=== PATIENT | female | born 1940 | race Caucasian/White ===

== ENCOUNTER 2019-12-08 14:04 | Outpatient (RCR) | payer MEDICARE, SELFPAY | END 2019-12-16 14:50 | disposition home or self-care (01) | LOC: HO.WCC 14:04 | PROVIDERS: PCP Family Medicine; Visit Provider Surgery | DX: Z09 Encounter for follow-up examination after completed treatment for conditions other than malignant neoplasm (principal) | CPT/HCPCS: 99212 ==

== ENCOUNTER 2019-12-31 13:33 | Outpatient (REF) | payer MEDICARE, SELFPAY ==
[2019-12-31 18:29] LABS: MANUAL DIFF FLAG NO
[2019-12-31 18:36] LABS: Basophils Absolute Auto 0.1 X10*3/uL (0.0-0.2); Basophils Percent Auto 1.1 % (0-2); Eosinophils Absolute Auto 0.4 X10*3/uL (0.0-0.4); Eosinophils Percent Auto 5.4 % (0-4); Hematocrit 33.5 % (37-47); Hemoglobin 10.9 g/dl (12.0-16.0); Imm Gran Abs Auto 0.03 X10*3/uL (0.00-0.03); Imm Gran Pct Auto 0.4 % (0.0-0.4); Immature Retic Fraction 5.9 % (3.0-15.9); Lymphocytes Absolute Auto 1.7 X10*3/uL (1.2-4.9); Lymphocytes Percent Auto 23.1 % (20-40); Mean Corpuscular HGB Conc 32.5 g/dl (31.0-35.0); Mean Corpuscular Hemoglobin 31.9 pg (27.0-33.0); Mean Platelet Volume 10.9 fL (9.4-12.3); Monocytes Absolute Auto 0.7 X10*3/uL (0.1-1.2); Monocytes Percent Auto 9.4 % (2-11); Neutrophils Absolute Auto 4.5 X10*3/uL (2.0-8.3); Neutrophils Percent Auto 60.6 % (45-73); Platelet Count 209 X10*3/uL (160-400); Red Blood Count 3.42 X10*6/uL (4.20-5.50); Red Cell Distribution Width 13.8 % (11.0-16.0); Retic HGB Equivalent 34.7 pg (30.0-35.0); Reticulocyte Percent 0.9 % (0.5-1.8); Reticulocytes Absolute 0.032 X10*6/uL (0.026-0.095); White Blood Count 7.5 X10*3/uL (4.8-10.8)
[2019-12-31 19:03] LABS: Alanine Aminotransferase 19 U/L (0-31); Albumin Level 4.2 g/dL (3.5-5.0); Alkaline Phosphatase 83 U/L (39-117); Anion Gap 16 (12-20); Aspartate Amino Transferase 22 U/L (5-31); Bilirubin Total 0.2 mg/dL (0.0-1.0); Blood Urea Nitrogen 47 mg/dL (9-16); Carbon Dioxide 24 mmol/L (22-29); Chloride 108 mmol/L (96-108); Estimated Glomerular Filt Rate 39; Glucose Random 75 mg/dL (60-115); Potassium 4.8 mmol/l (3.3-5.1); Sodium 143 mmol/L (135-145); Total Protein 6.3 g/dL (6.5-8.0)
[2020-01-03 14:12] LABS: Haptoglobin 166 mg/dL (43-212)
== END 2019-12-31 13:34 | disposition home or self-care (01) ==
LOC: HO.HMGCLDS 13:33
PROVIDERS: PCP Family Medicine; Visit Provider Family Medicine
DX: D69.6 Thrombocytopenia, unspecified (principal); C91.10 Chronic lymphocytic leukemia of B-cell type not having achieved remission; D58.9 Hereditary hemolytic anemia, unspecified
CPT/HCPCS: 36415; 80053; 83010; 85025; 85045

== ENCOUNTER 2020-01-13 15:11 | Outpatient (REF) | payer MEDICARE, SELFPAY | END 2020-01-13 15:12 | disposition home or self-care (01) | LOC: HO.LAB 15:11 | PROVIDERS: Visit Provider Internal Medicine | DX: Z20.828 Contact with and (suspected) exposure to other viral communicable diseases (principal) | CPT/HCPCS: C9803; U0003 ==

== ENCOUNTER 2020-03-04 14:19 | Emergency (ER) | payer MEDICARE, SELFPAY ==
[2020-03-04] VITALS (10 sets, daily range): BP systolic 178–247; BP diastolic 78–107; PULSE 73–90; RESP 12–22; TEMP 36.7–36.8; O2SAT 94–98; BMI 19.8
--- NOTE | 2020-03-04 14:37 | XR_ITS ---
EXAMINATION: XR HIP, LEFT CLINICAL INFORMATION: No evidence for dislocation, injury/pain and deformity COMPARISON: None TECHNIQUE: Three views of the left hip. FINDINGS: Patient is status post bilateral hip arthroplasties. There is superior lateral dislocation of the left femoral prosthesis with relation to the left acetabular prosthesis. Degenerative changes of the lower lumbar spine with partially visualized spinal hardware. Right-sided vascular stent noted overlying the pelvis. Bowel gas pattern is unremarkable. Soft tissues are unremarkable. XR/XR hip LT min 2V IMPRESSION: Superior lateral dislocation of the left femoral prosthesis with relation to the left acetabular prosthesis.
--- NOTE | 2020-03-04 15:03 | ECG_ITS ---
Test Reason : HIP DISLOCATION Blood Pressure : / mmHG Vent. Rate : 087 BPM Atrial Rate : 087 BPM P-R Int : 200 ms QRS Dur : 068 ms QT Int : 392 ms P-R-T Axes : 058 062 064 degrees QTc Int : 471 ms Normal sinus rhythm Possible Left atrial enlargement Borderline ECG When compared with ECG of 27-APR-2019 12:40, No significant change was found Referred By: Patricia Gallagher Electronically Signed By:Luis Alberto Hair
--- NOTE | 2020-03-04 15:06 | ED_ITS ---
HPI - Extremity Problem General Chief complaint: Extremity Problem Stated complaint: dislocated hip Time Seen by Provider: 03/04/20 14:37 Source: patient and EMS Mode of arrival: EMS Limitations: no limitations History of Present Illness HPI Narrative: 79-year-old female with a past medical history of left total hip arthroplasty with multiple recurrent dislocations the left side here with left hip pain and deformity. Patient tells me she was sitting on her bed trying to put her pants on and when she was trying to put her left leg into her pants she felt pain. Unable to bear weight on the extremity after. Received 50 mcg of fentanyl by EMS prior to arrival. Did not fall to the ground. No head injury or loss of consciousness. MD Complaint: extremity pain Onset (ago): hour(s) Pain Consistency: constant Location: left and lower extremity Quality: sharp Radiation: none Relieving factors: immobilization Exacerbating factors: range of motion, weight bearing, walking, exertion and palpation Associated symptoms: denies other symptoms Related Data Allergies Allergy/AdvReac Type Severity Reaction Status Date / Time diazepam [DIAZEPAM] Allergy Severe RASH Unverified 11/11/19 15:16 Nabjroq-Sdw-Hyq Reductase Allergy Unknown UNKNOWN Unverified 11/11/19 15:16 Inhibitor [GUAIVBH-NGY-HJP REDUCTASE INHIBITOR] statins Allergy Unknown Uncoded 10/15/19 00:00 Review of Systems Review of Systems: Yes all other systems are reviewed and are negative Constitutional: Constitutional: Reports no additional constitutional complaints, Denies body ache(s), Denies chills, Denies fever(s), Denies headache(s) and Denies weakness Eyes: Eyes: Reports no additional eye complaints and Denies change in vision ENT: Reports system reviewed and no additional complaints, except as documented, Denies dizziness, Denies headache(s), Denies nasal congestion, Denies nasal discharge and Denies neck pain Cardiovascular: Cardiovascular: Reports no additional cardiovascular c omplaints, Denies chest pain, Denies leg edema and Denies dyspnea Respiratory: Respiratory: Reports no additional respiratory complaints, Denies cough and Denies dyspnea Gastrointestinal: Gastrointestinal: Reports no additional gastrointestinal complaints, Denies abdominal pain, Denies diarrhea, Denies nausea and Denies vomiting Genitourinary: Genitourinary: Reports no additional female genitourinary complaints and Denies urinary incontinence Musculoskeletal: Musculoskeletal: Reports no additional musculoskeletal complaints, Denies back pain, Reports arthralgias, Reports joint swelling, Denies neck pain, Denies numbness and Denies tingling Integumentary/Breasts: Skin/Breast: Reports system reviewed and no additional complaints, except as docu and Denies rash Neurologic: Denies Abnormal speech present, Denies dizziness, Denies headache(s), Denies numbness, Denies tingling and Denies weakness PMF Past Medical History Attestation statement: The following information was validated with the patient. Source: nursing notes reviewed Medical History (Updated 03/04/20 @ 16:34 by Patricia Gallagher NP) Anemia CLL (chronic lymphocytic leukemia) Dementia Hip dislocation, left Hyperlipidemia Peripheral vascular disease Pulmonary fibrosis Ulcerative colitis Vertigo Surgical History (Updated 03/04/20 @ 16:27 by Patricia Gallagher NP) H/O carotid endarterectomy History of hip replacement History of liver biopsy S/P popliteal-distal bypass Social History Social History Alcohol intake: never Smoked in Last 30 Days: No Use of substances other than those prescribed or required for medical reasons: No Advance Directives: No Advance Directives Information Provided: Yes Physical Exam Vital Signs: Vital Signs: Last Vital Signs Temp 98.3 F 03/04/20 15:55 Pulse 74 03/04/20 16:29 Resp 17 03/04/20 16:13 BP 206/82 H 03/04/20 16:29 Pulse Ox 97 03/04/20 16:29 Body Mass Index 19.8 Const: General: cooperative, healthy appearing, comfortable and no acute distress Orientation/consciousness: patient oriented x3 Limitations: no limitations HENMT: Head: Yes normal to inspection Ears: hearing grossly normal bilaterally General nose exam: Normal external nose present Face and sinus: Yes normal facial exam Mouth: Normal oral and palatal mucosa present Throat: Yes posterior oropharynx normal Eyes: General: appearance normal, both eyes and all related structures Pu pils: Equal, round and reactive pupils present Neck: Neck: Yes normal visual inspection Chest: Chest palpation & inspection: normal inspection of the chest Resp: Effort & Inspection: normal respiratory effort Auscultation: clear to auscultation bilaterally Cardio: Rate: regular rate Rhythm: regular rhythm Peripheral pulses: Peripheral pulses 2+ throughout GI: Inspection: Yes normal to inspection Palpation (GI): Soft to palpation and nontender Auscultation: normal bowel sounds Back/Spine/Pelvis: Thoracic/Lumbar Spine: thoracic and lumbar spine normal to inspection Skin: General skin exam: no rashes or lesions noted Neuro: General: patient oriented x3, no focal motor deficits and normal sensation to monofilament Cranial nerves: Yes Equal, round and reactive pupils present Cognition (Neuro): normal cognition Speech: No Abnormal speech present Extrem: Other: Left lower extremity is internally rotated and shortened. Palpable pulses distally. Pain over the lateral left hip General: Yes normal to inspection Course Course Course Narrative: 79-year-old female here with pain to the left hip with shortening and rotation. She has a history of multiple dislocations in the left side. Will check x-rays. 1500-x-ray concerning for left hip dislocation-superior lateral. Discussed with orthopedics. Patient is very difficult to reduce and typically requires reduction in the operating room. Recommend attempt reduction here in the emergency department with conscious sedation. Discussed with Uriel as the patient has a history of dementia. He consented to conscious sedation and attempted reduction in the emergency department. 1615-successful reduction of left hip dislocation. Discussed with Susana CHU from Orthopedics. Recommended placing patient in a knee immobilizer, avoiding twisting, avoiding sitting low. 1700-called and updated has been. Plan for ambulation trial in the emergency department with discharge home Procedures Orthopedic Joint Reduction Joint #1: Time Out Performed: Yes Side: left Joint Reduction Location: hip Analgesia: procedural sedation Technique used: other (aguilera technique ) Post-reduction neuro exam: intact Post-reduction vascular: intact Post Reduction X-Ray Obtained: Yes Post Reduction X-Ray Results: reduced Splint Applied: Yes Patient Tolerated Procedure: well Orthopedic Splinting/Casting Injury #1: Side: left Lower Extremity Injury Location: knee Lower Extremity Immobilizer: knee immobilizer Other Orthopedic Equipment: walker Procedural Sedation Indication: fracture/dislocation reduction ASA Class: II Time of Last PO Intake: 09:00 IV Propofol dose (mg): 150 Patient Tolerated Procedure: well Complications: none MDM - Extremity (Nontraumatic) Medical Records Attestation: I reviewed the patient's medical records. Lab Data Attestation: I reviewed the patient's lab results. Result diagrams: 03/04/20 15:19 03/04/20 15:19 Labs: Lab Results 03/04/20 03/04/20 03/04/20 Range/Units 15:19 15:19 15:19 WBC 7.0 (4.8-10.8) X10*3/uL RBC 3.63 L (4.20-5.50) X10*6/uL Hgb 11.3 L (12.0-16.0) g/dl Hct 34.8 L (37-47) % MCV 95.9 (80-98) fL MCH 31.1 (27.0-33.0) pg MCHC 32.5 (31.0-35.0) g/dl RDW 13.9 (11.0-16.0) % Plt Count 200 (160-400) X10*3/uL MPV 9.7 (9.4-12.3) fL Immature Gran % (Auto) 0.3 (0.0-0.4) % Neut % (Auto) 63.1 (45-73) % Lymph % (Auto) 22.9 (20-40) % [place] % (Auto) 8.0 (2-11) % Eos % (Auto) 4.7 H (0-4) % Baso % (Auto) 1.0 (0-2) % Lymph # (Auto) 1.6 (1.2-4.9) X10*3/uL [place] # (Auto) 0.6 (0.1-1.2) X10*3/uL Eos # (Auto) 0.3 (0.0-0.4) X10*3/uL Baso # (Auto) 0.1 (0.0-0.2) X10*3/uL Abs Immat Gran (auto) 0.02 (0.00-0.03) X10*3/uL Absolute Neuts (auto) 4.4 (2.0-8.3) X10*3/uL Absolute Nucleated RBC 0.000 (0.0-0.012) X10*3/uL Nucleated RBC % (auto) 0.0 (0.0-0.2) /100WBC Hold Blue Top SEE NOTE Sodium 141 (135-145) mmol/L Potassium 4.6 (3.3-5.1) mmol/l Chloride 107 (96-108) mmol/L Carbon Dioxide 23 (22-29) mmol/L Anion Gap 16 (12-20) BUN 44 H (9-16) mg/dL Creatinine 1.23 (0.5-1.4) mg/dL Estim Creat Clear Calc 34.5 Estimated GFR 42 Random Glucose 101 (60-115) mg/dL Calcium 9.0 (8.4-10.2) mg/dL Imaging Data hip xray: Attestation: I personally reviewed and interpreted this imaging study as follows: Radiologist's impression: Left hip with superior and lateral displacement. No bony abnormality or fracture ECG Data Attestation EKG: I personally reviewed and interpreted this ECG as follows: ECG interpretation date: 03/04/20 ECG interpretation time: 15:15 Interpretation: Normal sinus rhythm with a rate of 87, normal [place], normal QRS, normal QT Critical Care Time Critical Care Time Critical Care Time: Yes Total Critical Care Time: 30 Attestation: Sedation, joint reduction, discussed with Orthopedics Discharge Plan Discharge Clinical Impression: Dislocation, hip closed Qualifiers: Encounter type: initial encounter Laterality: left Qualified Code(s): S73.005A - Unspecified dislocation of left hip, initial encounter Patient Disposition: Home, Self-Care Instructions: Hip Dislocation (ED) Additional Instructions: Use the knee immobilizer. Avoid sitting and low positions like on the toilet or on the bed. Avoid rotating the hip inwards. Follow-up with orthopedics Referrals: Jewel Mckinley MD [Physician] - 2 days
[2020-03-04 15:24] LABS: Basophils Absolute Auto 0.1 X10*3/uL (0.0-0.2); Eosinophils Absolute Auto 0.3 X10*3/uL (0.0-0.4); Eosinophils Percent Auto 4.7 % (0-4); Hematocrit 34.8 % (37-47); Hemoglobin 11.3 g/dl (12.0-16.0); Imm Gran Abs Auto 0.02 X10*3/uL (0.00-0.03); Imm Gran Pct Auto 0.3 % (0.0-0.4); Lymphocytes Absolute Auto 1.6 X10*3/uL (1.2-4.9); Lymphocytes Percent Auto 22.9 % (20-40); MANUAL DIFF FLAG NO; Mean Corpuscular HGB Conc 32.5 g/dl (31.0-35.0); Mean Corpuscular Hemoglobin 31.1 pg (27.0-33.0); Mean Corpuscular Volume 95.9 fL (80-98); Mean Platelet Volume 9.7 fL (9.4-12.3); Monocytes Absolute Auto 0.6 X10*3/uL (0.1-1.2); Neutrophils Absolute Auto 4.4 X10*3/uL (2.0-8.3); Neutrophils Percent Auto 63.1 % (45-73); Platelet Count 200 X10*3/uL (160-400); Red Blood Count 3.63 X10*6/uL (4.20-5.50); Red Cell Distribution Width 13.9 % (11.0-16.0)
[2020-03-04 15:46] LABS: Anion Gap 16 (12-20); Blood Urea Nitrogen 44 mg/dL (9-16); Carbon Dioxide 23 mmol/L (22-29); Chloride 107 mmol/L (96-108); Creatinine Clr Calc Pharmacy 34.5; Estimated Glomerular Filt Rate 42; Glucose Random 101 mg/dL (60-115); Potassium 4.6 mmol/l (3.3-5.1); Sodium 141 mmol/L (135-145)
--- NOTE | 2020-03-04 15:51 | XR_ITS ---
EXAMINATION: XR HIP, LEFT CLINICAL INFORMATION: Post reduction COMPARISON: Tip radiograph from 03/04/2020 TECHNIQUE: 1 view of the left hip. FINDINGS: There has been interval reduction of previously noted left hip arthroplasty dislocation. The left femoral prosthesis is now in anatomic alignment with the left acetabular prosthesis. Orthopedic hardware is grossly intact. No acute visible fracture or dislocation. Joint spaces and alignment are maintained. Partially visualized lower lumbar spine hardware. Soft tissues are unremarkable. XR/XR hip LT 1V IMPRESSION: Interval reduction of previously noted left hip arthroplasty dislocation. The left femoral prosthesis is now in anatomic alignment with the left acetabular prosthesis. Orthopedic hardware is grossly intact.
--- NOTE | 2020-03-04 16:12 | XR_ITS ---
EXAMINATION: XR KNEE, LEFT CLINICAL INFORMATION: Swollen, etiology COMPARISON: None TECHNIQUE: Two views of the left knee. FINDINGS: There is no acute visible fracture or dislocation. Mild multicompartment degenerative changes are noted. There is spurring of the tibial spines. There is narrowing of the lateral femorotibial compartment. There is periventricular osteophyte formation along the tibial plateau and lateral distal femoral condyle. Smoker reticular osteophytes are noted at the superior and inferior margins of the patella. Joint spaces and alignment are otherwise maintained. No large joint effusion. Soft tissues are unremarkable. XR/XR knee LT 2V IMPRESSION: 1. No acute visible fracture or dislocation. 2. Mild multicompartment degenerative changes.
--- NOTE | 2020-03-04 16:19 | PC.NURSE ---
50ML of Propofol wasted with Hilary TORRES.
[2020-03-04] MEDS: propofoL 200 MG/20 ML VIAL 150 MG IVPUSH (16:23)
--- NOTE | 2020-03-04 17:16 | PC.NURSE ---
pt ambulated with walker no signs of pain or re dislocation
== END 2020-03-04 18:22 | disposition home or self-care (01) ==
PROVIDERS: Nurse Practitioner Family; Emergency Provider Internal Medicine
DX: M24.452 Recurrent dislocation, left hip (principal); F03.90 Unspecified dementia, unspecified severity, without behavioral disturbance, psychotic disturbance, mood disturbance, and anxiety
CPT/HCPCS: 27266; 36415; 73501; 73502; 73560; 80048; 85025; 93005; 96374; 96376; 99152; 99284; 99291

== ENCOUNTER → 2020-03-09 09:36 | Outpatient (BNVA) | payer MEDICARE, SELFPAY | PROVIDERS: PCP Family Medicine; Visit Provider Internal Medicine | DX: Z98.890 Other specified postprocedural states (principal) | CPT/HCPCS: 99212 ==

== ENCOUNTER 2020-03-15 09:34 | Outpatient (REF) | payer MEDICARE, SELFPAY ==
[2020-03-15 10:52] LABS: Alanine Aminotransferase 18 U/L (0-31); Albumin Level 4.1 g/dL (3.5-5.0); Alkaline Phosphatase 94 U/L (39-117); Aspartate Amino Transferase 20 U/L (5-31); Bilirubin Direct 0.2 mg/dL (0.0-0.5); Bilirubin Total 0.4 mg/dL (0.0-1.0); Cholesterol 221 mg/dL; HDL Cholesterol 101 mg/dL; LDL Cholesterol Calculated 110 mg/dl; Total Protein 6.1 g/dL (6.5-8.0); Triglycerides 53 mg/dL
== END 2020-03-15 09:35 | disposition home or self-care (01) ==
LOC: HO.LAB 09:34
PROVIDERS: PCP Family Medicine; Visit Provider Internal Medicine
DX: E78.5 Hyperlipidemia, unspecified (principal); D69.6 Thrombocytopenia, unspecified
CPT/HCPCS: 36415; 80061; 80076

== ENCOUNTER 2020-03-31 12:15 | Outpatient (REF) | payer MEDICARE, SELFPAY ==
[2020-03-31 13:34] LABS: MANUAL DIFF FLAG NO
[2020-03-31 13:53] LABS: Basophils Absolute Auto 0.1 X10*3/uL (0.0-0.2); Basophils Percent Auto 1.2 % (0-2); Eosinophils Absolute Auto 0.3 X10*3/uL (0.0-0.4); Eosinophils Percent Auto 4.5 % (0-4); Hematocrit 34.6 % (37-47); Hemoglobin 11.2 g/dl (12.0-16.0); Imm Gran Abs Auto 0.01 X10*3/uL (0.00-0.03); Imm Gran Pct Auto 0.1 % (0.0-0.4); Lymphocytes Absolute Auto 1.7 X10*3/uL (1.2-4.9); Lymphocytes Percent Auto 22.5 % (20-40); Mean Corpuscular HGB Conc 32.4 g/dl (31.0-35.0); Mean Corpuscular Hemoglobin 31.6 pg (27.0-33.0); Mean Corpuscular Volume 97.7 fL (80-98); Mean Platelet Volume 10.1 fL (9.4-12.3); Monocytes Absolute Auto 0.7 X10*3/uL (0.1-1.2); Monocytes Percent Auto 9.8 % (2-11); Neutrophils Absolute Auto 4.7 X10*3/uL (2.0-8.3); Neutrophils Percent Auto 61.9 % (45-73); Platelet Count 220 X10*3/uL (160-400); Red Blood Count 3.54 X10*6/uL (4.20-5.50); Red Cell Distribution Width 14.4 % (11.0-16.0); Retic HGB Equivalent 34.7 pg (30.0-35.0); Reticulocyte Percent 1.2 % (0.5-1.8); Reticulocytes Absolute 0.041 X10*6/uL (0.026-0.095); White Blood Count 7.6 X10*3/uL (4.8-10.8)
[2020-03-31 14:07] LABS: Alanine Aminotransferase 16 U/L (0-31); Albumin Level 4.3 g/dL (3.5-5.0); Alkaline Phosphatase 99 U/L (39-117); Anion Gap 14 (12-20); Aspartate Amino Transferase 22 U/L (5-31); Bilirubin Total 0.3 mg/dL (0.0-1.0); Blood Urea Nitrogen 33 mg/dL (9-16); Calcium 9.3 mg/dL (8.4-10.2); Carbon Dioxide 25 mmol/L (22-29); Chloride 107 mmol/L (96-108); Estimated Glomerular Filt Rate 48; Glucose Random 67 mg/dL (60-115); Lactate Dehydrogenase 236 U/L (122-220); Potassium 4.7 mmol/L (3.3-5.1); Sodium 141 mmol/L (135-145); Total Protein 6.5 g/dL (6.5-8.0)
[2020-03-31 15:00] LABS: Erythrocyte Sedimentation Rate 16 MM/HR (0-20)
[2020-04-03 13:52] LABS: Haptoglobin 184 mg/dL (43-212)
== END 2020-03-31 12:16 | disposition home or self-care (01) ==
LOC: HO.LAB 12:15
PROVIDERS: PCP Family Medicine; Visit Provider Internal Medicine Medical Oncology
DX: D69.6 Thrombocytopenia, unspecified (principal); D58.9 Hereditary hemolytic anemia, unspecified; E83.52 Hypercalcemia
CPT/HCPCS: 36415; 80053; 83010; 83615; 85025; 85045; 85652

== ENCOUNTER 2020-05-06 10:29 | Emergency (ER) | payer MEDICARE, SELFPAY ==
[2020-05-06] VITALS (16 sets, daily range): BP systolic 156–225; BP diastolic 62–135; PULSE 69–104; RESP 10–21; TEMP 36.6; O2SAT 95–99; BMI 19.8
--- NOTE | ~2020-05-06 | XR_ITS ---
EXAMINATION: XR HIP, LEFT CLINICAL INFORMATION: Dislocation COMPARISON: None TECHNIQUE: Two views of the left hip. FINDINGS: There is a dislocated left hip prosthesis with the head of the femur lying superior to the acetabular prosthesis. No prosthetic loosening seen. There is no soft tissue abnormality. XR/XR hip LT w PEL1V IMPRESSION: Left hip prosthetic dislocation.
--- NOTE | ~2020-05-06 | XR_ITS ---
EXAMINATION: XR HIP, LEFT CLINICAL INFORMATION: Hip reduction COMPARISON: Earlier same date TECHNIQUE: Single view of the left hip. XR/XR hip LT 1V FINDINGS/IMPRESSION: Successful reduction of the previously seen posterosuperior dislocation. The femoral head prosthetic component is not concentrically seated within the acetabular cup. No fractures.
--- NOTE | 2020-05-06 10:51 | ED_ITS ---
HPI - General Adult General Chief complaint: General Medical Stated complaint: LEFT HIP DISLOCATION Time Seen by Provider: 05/06/20 10:40 Source: patient Mode of arrival: EMS Limitations: no limitations History of Present Illness HPI narrative: Patient comes via EMS complaining of a left hip dislocation. Patient states that she lost count how many times it has been dislocated. Patient thinks it is approximately the 10th time. Patient complaining of localized pain. Patient states she was trying to tie her shoes and her hip popped Related Data Home Medications Medication Instructions Recorded Confirmed amlodipine 10 mg tablet 10 mg PO QAM 03/09/20 03/09/20 ascorbic acid (vitamin C) 1,000 mg 1 g PO DAILY tab 03/09/20 03/09/20 tablet aspirin 81 mg tablet,delayed 81 mg PO DAILY 03/09/20 03/09/20 release calcitonin (salmon) 200 INTRANASAL 03/09/20 03/09/20 unit/actuation nasal spray cholecalciferol (vitamin D3) 250 250 mcg PO DAILY 03/09/20 03/09/20 mcg (10,000 unit) capsule clonazepam 0.5 mg tablet 0.5 mg PO BID PRN 03/09/20 03/09/20 donepezil 10 mg tablet 10 mg PO DAILY 03/09/20 03/09/20 hydralazine 25 mg tablet 25 mg PO TID 03/09/20 03/09/20 memantine 10 mg tablet 10 mg PO DAILY 03/09/20 03/09/20 ogfowaty-fqj-vgpka acid 0.4 1 tab PO DAILY 03/09/20 03/09/20 mg-lycopene 300 mcg-lutein 250 mcg tablet Previous Rx's Medication Instructions Recorded evolocumab 140 mg/mL subcutaneous 140 mg SUBCUT Q2W #2 syringe 03/22/20 pen injector amlodipine 10 mg PO DAILY #30 tab 05/06/20 Allergies Allergy/AdvReac Type Severity Reaction Status Date / Time diazepam [DIAZEPAM] Allergy Severe RASH Verified 03/09/20 09:45 Xpljmnf-Mxx-Fgj Reductase Allergy Unknown UNKNOWN Verified 03/09/20 09:45 Inhibitor [RWPHEEH-IUD-QFD REDUCTASE INHIBITOR] Review of Systems Review of Systems: Constitutional : No Weight loss, No Fever, No Chills, No Night Sweats, No Fatigue, No Malaise ENT/Mouth : No Hearing loss, No Ear Pain, No Nasal Congestion, No Sinus Pain, No Hoarseness, No sore throat, No Rhinorrhea, No Swallowing Difficulty Eyes: No Eye Pain, No Swelling, No Redness, No Foreign Body, No Discharge, No Vision Changes Cardiovascular : No Chest Pain, No SOB, No Dyspnea on Exertion, No Orthopnea, No Edema, No Palpitations Respiratory : No Cough, No Sputum, No Wheezing, No Smoke Exposure, No Dyspnea Gastrointestinal : No Nausea, No Vomiting, No Diarrhea, No Constipation, No abdominal Pain, No Hematochezia, No Melena Genitourinary : no irregular bleeding, No Dysuria, No Urinary Frequency, No Hematuria, No Urinary Incontinence, No Urgency, No Flank Pain, No Urinary Flow Changes, No Hesitancy Musculoskeletal : Complaining of right hip pain, No Myalgias, No Joint Swelling Skin : No Skin Lesions, No rash Neuro : No Weakness, No Numbness, No Paresthesias, No Loss of Consciousness, No Dizziness, No Headache Psych : No Anxiety/Panic, No Depression, No SI/HI/AH/VH, No Social Issues, Heme/Lymph: No Bruising, No Bleeding,No Lymphadenopathy Endocrine : No Polyuria, No Polydipsia, No Temperature Intolerance [facility] Past Medical History Medical History Anemia CLL (chronic lymphocytic leukemia) Coronary artery calcification seen on CAT scan Dementia Essential hypertension Hip dislocation, left Hyperlipidemia Other and unspecified hyperlipidemia Peripheral artery disease Peripheral vascular disease Pulmonary fibrosis Ulcerative colitis Vertigo Surgical History H/O carotid endarterectomy History of hip replacement History of liver biopsy S/P popliteal-distal bypass Status post carotid endarterectomy Family History Family History (Updated 03/09/20 @ 08:06 by CAROLA Cho) Father No problems noted. Mother No problems noted. Social History Social History (Updated 03/09/20 @ 13:19 by Marimar Peterson CMA) Alcohol intake: never Smoking Status: Former smoker Advance Directives: No Advance Directives Information Provided: No 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 Physical Exam Vital Signs: Vital Signs: Last Vital Signs Temp 97.9 F 05/06/20 10:34 Pulse 71 05/06/20 12:47 Resp 18 05/06/20 12:47 BP 156/62 H 05/06/20 12:47 Pulse Ox 95 05/06/20 12:47 Body Mass Index 19.8 Constitutional : No Weight loss, No Fever, No Chills, No Night Sweats, No Fatigue, No Malaise ENT/Mouth : No Hearing loss, No Ear Pain, No Nasal Congestion, No Sinus Pain, No Hoarseness, No sore throat, No Rhinorrhea, No Swallowing Difficulty Eyes: No Eye Pain, No Swelling, No Redness, No Foreign Body, No Discharge, No Vision Changes Cardiovascular : No Chest Pain, No SOB, No Dyspnea on Exertion, No Orthopnea, No Edema, No Palpitations Respiratory : No Cough, No Sputum, No Wheezing, No Smoke Exposure, No Dyspnea Gastrointestinal : No Nausea, No Vomiting, No Diarrhea, No Constipation, No abdominal Pain, No Hematochezia, No Melena Genitourinary : no irregular bleeding, No Dysuria, No Urinary Frequency, No Hematuria, No Urinary Incontinence, No Urgency, No Flank Pain, No Urinary Flow Changes, No Hesitancy Musculoskeletal : Left leg is internally rotated, has obvious hip dislocation, No Myalgias, No Joint Swelling Skin : No Skin Lesions, No rash Neuro : No Weakness, No Numbness, No Paresthesias, No Loss of Consciousness, No Dizziness, No Headache Psych : No Anxiety/Panic, No Depression, No SI/HI/AH/VH, No Social Issues, Heme/Lymph: No Bruising, No Bleeding,No Lymphadenopathy Endocrine : No Polyuria, No Polydipsia, No Temperature Intolerance Course Course Course Narrative: Patient consented to conscious sedation. Risks and benefits were explained to the patient. Patient received initially 60 mg of propofol, patient needed a bit more sedation, then she received a 2nd dose of 20 mg of IV propofol, total of 80 mg IV propofol. Patient tolerated sedation well. Initially the left hip was attempted to be reduced with Captain Gopal's maneuver, which was unsuccessful. Allis technique was attempted and was successful. I spoke with VLAD Mauro from orthopedics who spoke to Dr. Mckinley. Patient should have an appointment pending for Orthopedics in [place]. Patient will get a knee immobilizer. Patient's blood pressure was initially 216, patient is symptomatic. Patient was given 1 dose of oral labetalol, 180 now, patient remains asymptomatic. Patient states that she does not remember what medication she used to take but is not taking it anymore. Per patient's records, she has to take 10 mg of amlodipine and 25 mg of hydralazine t.i.d.. I discussed with the patient we will go ahead and start her on amlodipine, she needs close follow-up with her primary care physician for blood pressure control. Medical Decision Making Imaging Data Left hip x-ray: My impression: Left hip prosthetic dislocation Radiologist's impression: There is a dislocated left hip prosthesis with the head of the femur lying superior to the acetabular prosthesis. No prosthetic loosening seen. There is no soft tissue abnormality. XR/XR hip LT w PEL1V IMPRESSION: Left hip prosthetic dislocation. Left hip post reduction: My impression: Prosthetic hip reduction Radiologist's impression: Successful reduction of the previously seen posterosuperior dislocation. The femoral head prosthetic component is not concentrically seated within the acetabular cup. No fractures. Discharge Plan Discharge Clinical Impression: Recurrent dislocation of left hip Hypertension Qualifiers: Hypertension type: unspecified Qualified Code(s): I10 - Essential (primary) hypertension Patient Disposition: Home, Self-Care Instructions: Hip Dislocation (ED) Additional Instructions: Please follow-up with orthopedics in [place], if you need to reschedule, please call Dr. Mckinley office so they can help you to reschedule your visit in [place]. Please follow-up with your primary care physician tomorrow. If you have any worsening or new symptoms, please return to the emergency room or call 911 Prescriptions: New amlodipine 10 mg tablet 10 mg PO DAILY Qty: 30 RF: 0 No Action Repatha SureClick 140 mg/mL pen injector 140 mg subcut Q2W Qty: 2 RF: 5 clonazepam 0.5 mg tablet 0.5 mg PO BID PRNRF: 0 calcitonin (salmon) 200 unit/actuation spray,non-aerosol intranasal RF: 0 amlodipine 10 mg tablet 10 mg PO QAM RF: 0 memantine 10 mg tablet 10 mg PO DAILY RF: 0 hydralazine 25 mg tablet 25 mg PO TID RF: 0 donepezil 10 mg tablet 10 mg PO DAILY RF: 0 aspirin 81 mg tablet,delayed release (DR/EC) 81 mg PO DAILY RF: 0 cholecalciferol (vitamin D3) 250 mcg (10,000 unit) capsule 250 mcg PO DAILY RF: 0 ascorbic acid (vitamin C) 1,000 mg tablet 1 g PO DAILY RF: 0 Centrum Silver 0.4-300-250 mg-mcg-mcg tablet 1 tab PO DAILY RF: 0 Referrals: Jewel Mckinley MD [Physician] - 2 days
[2020-05-06] MEDS: Morphine Sulfate 2 MG/ML CARTRIDGE IVPUSH (11:17)
[2020-05-06] MEDS: propofoL 200 MG/20 ML VIAL 80 MG IVPUSH (11:30)
--- NOTE | 2020-05-06 11:58 | PC.NURSE ---
patient sedated and left hip back into place by dr fernández. patient tolerated well. awake shortly after procedure. patient at baseline mentally. confirmed with , patient hx dementia does experience confusion at times. aware hip in place by md and waiting on x rays. patients BP has been elevated 200's systolically. md aware. patient reports no pain after procedure. awake and conversing with RN.
[2020-05-06] MEDS: Labetalol HCL 100 MG TABLET PO (12:19)
== END 2020-05-06 13:50 | disposition home or self-care (01) ==
PROVIDERS: Emergency Provider Emergency Medicine; PCP Family Medicine
DX: M24.452 Recurrent dislocation, left hip (principal); I10 Essential (primary) hypertension; E78.5 Hyperlipidemia, unspecified; C91.10 Chronic lymphocytic leukemia of B-cell type not having achieved remission; Z96.642 Presence of left artificial hip joint; Z79.82 Long term (current) use of aspirin; Z79.899 Other long term (current) drug therapy
CPT/HCPCS: 27265; 73501; 73502; 96374; 96375; 99152; 99284; 99285; J2270

== ENCOUNTER 2020-05-25 12:52 | Outpatient (REF) | payer MEDICARE, SELFPAY ==
--- NOTE | ~2020-05-25 | MM_ITS ---
EXAMINATION: MM SCREENING DIGITAL BREAST TOMOSYNTHESIS, BILATERAL CLINICAL INFORMATION: Screening. Asymptomatic. The lifetime risk of breast cancer based on the Tyrer-Cuzick Model is 1.7%. COMPARISON: Mammography: 04/10/2019 and studies dating back to 11/03/2013 TECHNIQUE: Digital breast tomosynthesis is performed in both the craniocaudal and mediolateral oblique views along with computer-aided detection (CAD). Synthesized 2D images are generated from the tomosynthesis. FINDINGS: The breasts are heterogeneously dense, which may obscure small masses (ACR BI-RADS breast composition Category c). There is a stable appearance of the left breast with no new abnormal dominant mass or suspicious grouping of microcalcifications identified. Within the anterior lateral aspect on craniocaudal view of the right breast, there is question region of architectural distortion approximately 3 cm from the nipple, for which spot compression view is recommended. I do not definitely see a correlate on mediolateral oblique image with tomosynthesis estimating it to lie within the superior aspect of the breast. No associated microcalcifications identified. MM/MM tomosynthesis screening BI IMPRESSION: Question region of architectural distortion anterior aspect laterally of the right breast. ASSESSMENT: BI-RADS 0: Incomplete - Need Additional Imaging Evaluation. RECOMMENDATION: 1. Additional views of the right breast. 2. Targeted ultrasound if warranted after review of the additional views. 3. Radiology department staff will contact the patient for additional imaging.
== END 2020-05-25 12:53 | disposition home or self-care (01) ==
LOC: HO.MAMMO 12:52
PROVIDERS: Visit Provider Family Medicine
DX: Z12.31 Encounter for screening mammogram for malignant neoplasm of breast (principal)
CPT/HCPCS: 77063; 77067

== ENCOUNTER 2020-05-29 12:49 | Outpatient (REF) | payer MEDICARE, SELFPAY ==
[2020-05-29 14:11] LABS: MANUAL DIFF FLAG NO
[2020-05-29 14:13] LABS: Basophils Absolute Auto 0.1 X10*3/uL (0.0-0.2); Eosinophils Absolute Auto 0.3 X10*3/uL (0.0-0.4); Eosinophils Percent Auto 4.2 % (0-4); Hematocrit 35.7 % (37-47); Hemoglobin 11.7 g/dl (12.0-16.0); Imm Gran Abs Auto 0.02 X10*3/uL (0.00-0.03); Imm Gran Pct Auto 0.3 % (0.0-0.4); Lymphocytes Absolute Auto 1.6 X10*3/uL (1.2-4.9); Lymphocytes Percent Auto 19.6 % (20-40); Mean Corpuscular HGB Conc 32.8 g/dl (31.0-35.0); Mean Corpuscular Hemoglobin 31.7 pg (27.0-33.0); Mean Corpuscular Volume 96.7 fL (80-98); Mean Platelet Volume 10.1 fL (9.4-12.3); Monocytes Absolute Auto 0.6 X10*3/uL (0.1-1.2); Monocytes Percent Auto 8.1 % (2-11); Neutrophils Absolute Auto 5.3 X10*3/uL (2.0-8.3); Neutrophils Percent Auto 66.8 % (45-73); Platelet Count 223 X10*3/uL (160-400); Red Blood Count 3.69 X10*6/uL (4.20-5.50); Red Cell Distribution Width 13.1 % (11.0-16.0); White Blood Count 7.9 X10*3/uL (4.8-10.8)
[2020-05-29 14:33] LABS: Alanine Aminotransferase 21 U/L (0-31); Albumin Level 4.3 g/dL (3.5-5.0); Alkaline Phosphatase 101 U/L (39-117); Anion Gap 15 (12-20); Aspartate Amino Transferase 25 U/L (5-31); Bilirubin Total 0.2 mg/dL (0.0-1.0); Blood Urea Nitrogen 39 mg/dL (9-16); Calcium 9.5 mg/dL (8.4-10.2); Carbon Dioxide 29 mmol/L (22-29); Chloride 103 mmol/L (96-108); Estimated Glomerular Filt Rate 42; Glucose Random 88 mg/dL (60-115); Potassium 4.5 mmol/L (3.3-5.1); Sodium 142 mmol/L (135-145); Total Protein 6.6 g/dL (6.5-8.0)
== END 2020-05-29 12:50 | disposition home or self-care (01) ==
LOC: HO.LAB 12:49
PROVIDERS: PCP Family Medicine; Visit Provider Internal Medicine Medical Oncology
DX: D69.6 Thrombocytopenia, unspecified (principal)
CPT/HCPCS: 36415; 80053; 85025

== ENCOUNTER 2020-06-19 09:05 | Outpatient (REF) | payer MEDICARE, SELFPAY ==
--- NOTE | ~2020-06-19 | MM_ITS ---
EXAMINATION: MM DIAGNOSTIC DIGITAL BREAST TOMOSYNTHESIS, RIGHT CLINICAL INFORMATION: Recall from screening for question of architectural changes anterior central outer right breast limited to the CC tomography. No MLO correlate. COMPARISON: Mammography: 01/24/2021, 04/20/2019, 01/02/2018, 12/05/2016 TECHNIQUE: Digital breast tomosynthesis is performed. 2D images are generated from the tomosynthesis. The following views are obtained: 3-D spot CC, 3-D rolled CC x2. FINDINGS: The breasts are heterogeneously dense, which may obscure small masses (ACR BI-RADS breast composition Category c). The additional views show no persistent architectural abnormality. There is no interval mass or developing density. Results are discussed with the patient at time of visit. MM/MM tomosynthesis added views R IMPRESSION: Additional views are unremarkable. No architectural abnormality. ASSESSMENT: BI-RADS 1: Negative RECOMMENDATION: Routine annual mammography screening. This patient's information was entered into a reminder system with a target due date for their next mammogram.
== END 2020-06-19 09:06 | disposition home or self-care (01) ==
LOC: HO.MAMMO 09:05
PROVIDERS: PCP Family Medicine; Visit Provider Family Medicine
DX: N64.89 Other specified disorders of breast (principal)
CPT/HCPCS: 77061; 77065

== ENCOUNTER 2020-08-08 12:39 | Outpatient (REF) | payer MEDICARE, SELFPAY ==
[2020-08-08 13:49] LABS: MANUAL DIFF FLAG NO
[2020-08-08 14:12] LABS: Basophils Absolute Auto 0.1 X10*3/uL (0.0-0.2); Eosinophils Absolute Auto 0.4 X10*3/uL (0.0-0.4); Eosinophils Percent Auto 5.2 % (0-4); Hematocrit 35.7 % (37-47); Hemoglobin 11.4 g/dl (12.0-16.0); Imm Gran Abs Auto 0.01 X10*3/uL (0.00-0.03); Imm Gran Pct Auto 0.1 % (0.0-0.4); Lymphocytes Absolute Auto 1.7 X10*3/uL (1.2-4.9); Mean Corpuscular HGB Conc 31.9 g/dl (31.0-35.0); Mean Corpuscular Hemoglobin 30.4 pg (27.0-33.0); Mean Corpuscular Volume 95.2 fL (80-98); Mean Platelet Volume 10.3 fL (9.4-12.3); Monocytes Absolute Auto 0.7 X10*3/uL (0.1-1.2); Monocytes Percent Auto 10.8 % (2-11); Neutrophils Absolute Auto 3.8 X10*3/uL (2.0-8.3); Neutrophils Percent Auto 56.9 % (45-73); Platelet Count 262 X10*3/uL (160-400); Red Blood Count 3.75 X10*6/uL (4.20-5.50); Red Cell Distribution Width 13.5 % (11.0-16.0); White Blood Count 6.7 X10*3/uL (4.8-10.8)
[2020-08-08 15:06] LABS: Anion Gap 15 (12-20); Blood Urea Nitrogen 43 mg/dL (9-16); Calcium 9.7 mg/dL (8.4-10.2); Carbon Dioxide 25 mmol/L (22-29); Chloride 106 mmol/L (96-108); Estimated Glomerular Filt Rate 42; Potassium 4.3 mmol/L (3.3-5.1); Sodium 142 mmol/L (135-145)
[2020-08-10 17:31] LABS: Calcium (PTHI) 9.7 mg/dL (8.6-10.4); PTHI 26 pg/mL (14-64)
== END 2020-08-08 12:40 | disposition home or self-care (01) ==
LOC: HO.HMGCLDS 12:39
PROVIDERS: PCP Family Medicine; Visit Provider Family Medicine
DX: D64.9 Anemia, unspecified (principal); I10 Essential (primary) hypertension; E87.5 Hyperkalemia
CPT/HCPCS: 36415; 80051; 82310; 82565; 83970; 84520; 85025

== ENCOUNTER 2020-08-29 11:11 | Outpatient (REF) | payer MEDICARE, SELFPAY ==
[2020-08-29 14:00] LABS: MANUAL DIFF FLAG NO
[2020-08-29 14:15] LABS: Basophils Absolute Auto 0.1 X10*3/uL (0.0-0.2); Basophils Percent Auto 1.6 % (0-2); Eosinophils Absolute Auto 0.3 X10*3/uL (0.0-0.4); Eosinophils Percent Auto 5.9 % (0-4); Hematocrit 34.6 % (37-47); Hemoglobin 11.2 g/dl (12.0-16.0); Imm Gran Abs Auto 0.02 X10*3/uL (0.00-0.03); Imm Gran Pct Auto 0.3 % (0.0-0.4); Lymphocytes Absolute Auto 1.3 X10*3/uL (1.2-4.9); Lymphocytes Percent Auto 22.2 % (20-40); Mean Corpuscular HGB Conc 32.4 g/dl (31.0-35.0); Mean Corpuscular Hemoglobin 30.7 pg (27.0-33.0); Mean Corpuscular Volume 94.8 fL (80-98); Mean Platelet Volume 10.6 fL (9.4-12.3); Monocytes Absolute Auto 0.7 X10*3/uL (0.1-1.2); Monocytes Percent Auto 11.8 % (2-11); Neutrophils Absolute Auto 3.4 X10*3/uL (2.0-8.3); Neutrophils Percent Auto 58.2 % (45-73); Platelet Count 266 X10*3/uL (160-400); Red Blood Count 3.65 X10*6/uL (4.20-5.50); Red Cell Distribution Width 13.5 % (11.0-16.0); White Blood Count 5.8 X10*3/uL (4.8-10.8)
[2020-08-29 14:32] LABS: Alanine Aminotransferase 14 U/L (0-31); Alkaline Phosphatase 90 U/L (39-117); Anion Gap 17 (12-20); Aspartate Amino Transferase 26 U/L (5-31); Bilirubin Total 0.5 mg/dL (0.0-1.0); Blood Urea Nitrogen 45 mg/dL (9-16); Calcium 9.6 mg/dL (8.4-10.2); Carbon Dioxide 23 mmol/L (22-29); Chloride 107 mmol/L (96-108); Estimated Glomerular Filt Rate 37; Glucose Random 68 mg/dL (60-115); Lactate Dehydrogenase 276 U/L (122-220); Potassium 4.5 mmol/L (3.3-5.1); Sodium 142 mmol/L (135-145); Total Protein 6.2 g/dL (6.5-8.0)
== END 2020-08-29 11:12 | disposition home or self-care (01) ==
LOC: HO.HMGCLDS 11:11
PROVIDERS: PCP Student in an Organized Health Care Education/Training Program; Visit Provider Internal Medicine Medical Oncology
DX: D69.6 Thrombocytopenia, unspecified (principal)
CPT/HCPCS: 36415; 80053; 83615; 85025

== ENCOUNTER 2020-09-21 15:02 | Outpatient (REF) | payer MEDICARE, SELFPAY ==
[2020-09-21 15:56] LABS: Cholesterol 173 mg/dL; HDL Cholesterol 101 mg/dL; LDL Cholesterol Calculated 61 mg/dl; Triglycerides 55 mg/dL
== END 2020-09-21 15:03 | disposition home or self-care (01) ==
LOC: HO.LAB 15:02
PROVIDERS: PCP Family Medicine; Visit Provider Internal Medicine
DX: I25.10 Atherosclerotic heart disease of native coronary artery without angina pectoris (principal)
CPT/HCPCS: 36415; 80061

== ENCOUNTER 2020-09-26 14:07 | Outpatient (REF) | payer MEDICARE, SELFPAY ==
--- NOTE | ~2020-09-26 | US_ITS ---
EXAMINATION: US EXTRACRANIAL CAROTID DUPLEX, BILATERAL CLINICAL INFORMATION: This is an 80 year old female who is status post left carotid endarterectomy. Carotid bruit. Hypertension. COMPARISON: Comparison is made to a previous study dated 09/15/2019 which demonstrated 50-79% right internal carotid artery stenosis and 0-49% left internal carotid artery stenosis. TECHNIQUE: Real-time ultrasound and Doppler techniques (integrating B-mode 2-D vascular images, Doppler spectral analysis and color-flow Doppler imaging) were utilized to interrogate the extracranial carotid arteries, the vertebral arteries and proximal subclavian arteries bilaterally. The degree of stenosis is determined by criteria similar to NASCET. FINDINGS: Right Side: 1. There is moderate atherosclerotic plaque seen in the bifurcation/proximal ICA region. 2. The common carotid artery PSV proximally is 86 cm/s and distally 112 cm/s. 3. The proximal internal carotid artery velocities are 200 cm/s systolic and 46 cm/s diastolic. 4. The proximal external carotid artery PSV is 212 cm/s. There is a hemodynamically significant stenosis within the external carotid artery. 5. The vertebral artery shows antegrade flow. 6. The subclavian artery waveforms are normal. Left Side: 1. There is minimal atherosclerotic plaque seen in the bifurcation/proximal ICA region. 2. The common carotid artery PSV proximally is 90 cm/s and distally 89 cm/s. 3. The proximal internal carotid artery velocities are 81 cm/s systolic and 13 cm/s diastolic. 4. The proximal external carotid artery PSV is 143 cm/s. 5. The vertebral artery shows antegrade flow. 6. The subclavian artery waveforms are normal. US/US carotid duplex BI IMPRESSION: 1. RIGHT: Moderate, hemodynamically significant stenosis of the proximal right internal carotid artery corresponding to a 50-79% stenosis by velocity criteria. 2. LEFT: Minimal, non-hemodynamically significant stenosis of the proximal left internal carotid artery corresponding to a 0-49% stenosis by velocity criteria. 3. There is no change in the category severity of disease when compared to the previous study dated 09/15/2019.
--- NOTE | ~2020-09-26 | US_ITS ---
EXAMINATION: COLOR-FLOW DUPLEX IMAGING OF THE BILATERAL LOWER EXTREMITY ARTERIAL SYSTEM. VELOCITY MEASUREMENTS THROUGHOUT THE FEMORAL ARTERIES WITH ANKLE-BRACHIAL PERIPHERAL ARTERIAL TESTING. Interventional Radiologist: Kevin Tejada M.D., F.S.I.R., F.A.C.R. CLINICAL INFORMATION: This is an 80-year-old female with history of hypertension. Peripheral arterial disease. COMPARISON: Comparison is made to a previous study dated 10/14/2019. TECHNIQUE: The ankle/brachial indices of the distal posterior tibial and the dorsalis pedis arteries were obtained of the lower extremity arterial system bilaterally. Velocity measurements were then obtained throughout the arteries bilaterally. ? FINDINGS AT REST:? RIGHT LE. THE RIGHT ANKLE-BRACHIAL INDEX IS: 0.64. Previously, 0.77 (higher of the DP/PT) >0.97-1.25 = normal - no significant arterial disease 0.75-0.96 = mild peripheral arterial disease 0.50-0.74 = moderate peripheral arterial disease <0.50 = severe peripheral arterial disease <0.30 = critical arterial disease 2. SEGMENTAL PRESSURES: Ankle: PT 138 DP 124 3. PVR WAVEFORMS: Ankle: Moderately depressed 4. DIRECT DUPLEX: Common femoral: 346 cm/s and monophasic. Previously, 495 cm/s with severe stenosis. Proximal femoral: 118 cm/s and monophasic. Previously, 126 cm/s with mild atherosclerotic disease Proximal profunda: 61 cm/s and monophasic. Previously, 123 cm/s with mild atherosclerotic disease. Mid superficial femoral artery: 153 cm/s and monophasic. Previously, 104 cm/s without hemodynamically significant stenosis. Distal superficial femoral artery: 148 cm/s and monophasic. Previously, 84 cm/s without hemodynamically significant stenosis. Popliteal artery: 70 cm/s and monophasic. Previously, 59 cm/s without hemodynamically significant stenosis. Posterior tibial artery: 57 cm/s and monophasic. Previously, 43 cm/s without hemodynamically significant stenosis. LEFT LE. THE LEFT ANKLE-BRACHIAL INDEX IS: 0.69. Previously, 0.85 (higher of the DP/PT) >0.97-1.25 = normal - no significant arterial disease 0.75-0.96 = mild peripheral arterial disease 0.50-0.74 = moderate peripheral arterial disease <0.50 = severe peripheral arterial disease <0.30 = critical arterial disease 2. SEGMENTAL PRESSURES: Ankle: PT 149 DP 145 3. PVR WAVEFORMS: Ankle: Moderately depressed 4. DIRECT DUPLEX: Common femoral: 223 cm/s and biphasic. Previously, 210 cm/s with moderate hemodynamically stenosis. Proximal femoral: 108 cm/s and biphasic. Previously, 118 cm/s with mild atherosclerotic disease Proximal profunda: 145 cm/s and biphasic. Previously, 172 cm/s with mild-moderate atherosclerotic disease. Mid superficial femoral artery: 185 cm/s and biphasic. Previously, 217 cm/s with moderate hemodynamically significant stenosis and atherosclerotic disease. Distal superficial femoral artery: 172 cm/s and biphasic. Previously, 93 cm/s without hemodynamically significant stenosis. Popliteal artery: 109 cm/s and biphasic. Previously, 82 cm/s without hemodynamically significant stenosis. Posterior tibial artery: 26 cm/s and monophasic. Previously, 27 cm/s with mild atherosclerotic disease. There are calcified vessels throughout which decreases compressibility. A cardiac arrhythmia was also evident during the examination. ? US/US arterial duplex LE BI IMPRESSION: 1. Bilateral peripheral arterial disease. 2. There appears to be a high-grade hemodynamically significant stenosis within the right common femoral artery. This was seen previously and appears similar. 3. There is a moderate hemodynamically significant stenosis in the left common femoral artery and mid superficial femoral artery. This was seen previously and appears similar. 4. The ankle-brachial indices appear worse bilaterally when compared to the previous study.
== END 2020-09-26 14:08 | disposition home or self-care (01) ==
LOC: HO.US 14:07
PROVIDERS: PCP Family Medicine; Visit Provider Surgery Vascular Surgery
DX: I70.213 Atherosclerosis of native arteries of extremities with intermittent claudication, bilateral legs (principal); I65.23 Occlusion and stenosis of bilateral carotid arteries
CPT/HCPCS: 93880; 93925

== ENCOUNTER → 2020-10-02 09:47 | Outpatient (BNVA) | payer MEDICARE, SELFPAY | PROVIDERS: PCP Student in an Organized Health Care Education/Training Program; Visit Provider Internal Medicine | DX: I25.10 Atherosclerotic heart disease of native coronary artery without angina pectoris (principal); I73.9 Peripheral vascular disease, unspecified; E78.5 Hyperlipidemia, unspecified; I10 Essential (primary) hypertension; Z98.890 Other specified postprocedural states | CPT/HCPCS: 99212 ==

== ENCOUNTER → 2020-10-10 10:37 | Outpatient (BNVA) | payer MEDICARE, SELFPAY | PROVIDERS: PCP Family Medicine; Referring Provider Family Medicine; Visit Provider Surgery Vascular Surgery | DX: I65.23 Occlusion and stenosis of bilateral carotid arteries (principal); I73.9 Peripheral vascular disease, unspecified | CPT/HCPCS: 99212 ==

== ENCOUNTER 2020-11-30 12:01 | Outpatient (REF) | payer MEDICARE, SELFPAY ==
[2020-11-30 12:17] LABS: MANUAL DIFF FLAG NO
[2020-11-30 12:45] LABS: Basophils Absolute Auto 0.1 X10*3/uL (0.0-0.2); Basophils Percent Auto 1.2 % (0-2); Eosinophils Absolute Auto 0.5 X10*3/uL (0.0-0.4); Eosinophils Percent Auto 6.4 % (0-4); Hematocrit 33.2 % (37-47); Hemoglobin 10.9 g/dl (12.0-16.0); Imm Gran Abs Auto 0.02 X10*3/uL (0.00-0.03); Imm Gran Pct Auto 0.3 % (0.0-0.4); Immature Retic Fraction 2.8 % (3.0-15.9); Lymphocytes Absolute Auto 1.4 X10*3/uL (1.2-4.9); Lymphocytes Percent Auto 18.4 % (20-40); Mean Corpuscular HGB Conc 32.8 g/dl (31.0-35.0); Mean Corpuscular Hemoglobin 31.1 pg (27.0-33.0); Mean Corpuscular Volume 94.6 fL (80-98); Monocytes Absolute Auto 0.9 X10*3/uL (0.1-1.2); Monocytes Percent Auto 12.1 % (2-11); Neutrophils Absolute Auto 4.6 X10*3/uL (2.0-8.3); Neutrophils Percent Auto 61.6 % (45-73); Platelet Count 216 X10*3/uL (160-400); Red Blood Count 3.51 X10*6/uL (4.20-5.50); Red Cell Distribution Width 14.3 % (11.0-16.0); Retic HGB Equivalent 33.9 pg (30.0-35.0); Reticulocyte Percent 0.9 % (0.5-1.8); White Blood Count 7.5 X10*3/uL (4.8-10.8)
[2020-11-30 13:05] LABS: Lactate Dehydrogenase 218 U/L (122-220)
[2020-11-30 13:21] LABS: Ferritin 70 ng/mL (10-250)
== END 2020-11-30 12:02 | disposition home or self-care (01) ==
LOC: HO.LAB 12:01
PROVIDERS: PCP Family Medicine; Visit Provider Internal Medicine Medical Oncology
DX: D69.6 Thrombocytopenia, unspecified (principal)
CPT/HCPCS: 36415; 82728; 83615; 85025; 85045

== ENCOUNTER 2021-01-02 14:56 | Inpatient (IN) | payer MEDICARE, SELFPAY ==
[2021-01-02] VITALS (9 sets, daily range): BP systolic 168–223; BP diastolic 66–91; PULSE 59–112; RESP 16–22; TEMP 37.6–38.6; O2SAT 93–97; BMI 22.3
--- NOTE | ~2021-01-02 | US_ITS ---
EXAMINATION: US ABDOMEN COMPLETE CLINICAL INFORMATION: Abdominal pain, elevated LFTs, sepsis. COMPARISON: Renal ultrasound 05/20/2018. CT abdomen and pelvis 09/27/2015. TECHNIQUE: Real-time imaging of the abdominal viscera. FINDINGS: PANCREAS: Normal. ABDOMINAL AORTA: There is extensive atherosclerotic plaque of the abdominal aorta without evidence of aneurysm. INFERIOR VENA CAVA: Visualized portions are normal. LIVER: Liver has normal size, contour and parenchymal echotexture. No focal liver lesion or intrahepatic bile duct dilatation. GALLBLADDER: Normal. No evidence of stones, sludge, polyps, wall thickening or pericholecystic fluid. COMMON BILE DUCT: Normal in caliber measuring 0.6 cm in diameter. KIDNEYS: The kidneys are normal in size with right and left kidney measuring 9.5 cm and 9.1 cm in length, respectively. No nephrolithiasis. Simple cysts of both kidneys, largest on the right measuring up to 1.5 cm and on the left, 2.4 cm. Renal imaging follow-up is not recommended for simple cysts. There is mild fullness of the right renal pelvis and this is similar in appearance compared to 09/27/2015. There is no overt hydronephrosis. SPLEEN: Normal. The spleen measures 7.2 cm in maximum dimension. FREE FLUID: None. US/US abdomen complete IMPRESSION: * No acute sonographic findings. No evidence of cholelithiasis, cholecystitis or biliary tract obstruction. * The liver is sonographically normal.
--- NOTE | ~2021-01-02 | XR_ITS ---
EXAMINATION: XR CHEST CLINICAL INFORMATION: Cough and fever. COMPARISON: Chest radiograph done on 12/30/2018. TECHNIQUE: Frontal view of the chest was obtained. FINDINGS: No significant abnormality is noted involving the heart, lungs, mediastinum, bony thorax or soft tissues. XR/XR chest 1V IMPRESSION: No radiographic evidence of pneumonia.
--- NOTE | 2021-01-02 15:59 | ED_ITS ---
HPI - Chest Pain General Chief Complaint: Chest Pain Stated Complaint: shortness of breath, chest pain Time Seen by Provider: 01/02/21 15:48 Source: patient and EMS Mode of arrival: EMS Limitations: no limitations History of Present Illness HPI narrative: Patient comes emergency room complaining of not feeling well. Patient states that she feels blah , states she is unable to pinpoint a complaint. It seems that earlier today patient was complaining of chest pain and back pain. However patient states that she was not quite feeling chest pains or back pain, she was just not feeling well overall. Per EMS, blood pressure at home was 240/120. Due to patient's initial complaints patient received divided 24 mg of aspirin, 2 times nitro spray. On arrival to the emergency room, patient's blood pressure 156 systolic, denies chest pain or shortness of breath. It was noted the patient is coughing, states she has been coughing for couple of days. Denies diarrhea or vomiting, no abdominal pain. No UTI symptoms. Related Data Home Medications Medication Instructions Recorded Confirmed ascorbic acid (vitamin C) 1,000 mg 1 g PO DAILY tab 03/09/20 10/02/20 tablet aspirin 81 mg tablet,delayed 81 mg PO DAILY 03/09/20 10/02/20 release calcitonin (salmon) 200 See Rx Instructions .ROUTE .COMPLEX 03/09/20 10/02/20 unit/actuation nasal spray cholecalciferol (vitamin D3) 250 250 mcg PO DAILY 03/09/20 10/02/20 mcg (10,000 unit) capsule clonazepam 0.5 mg tablet 1 mg PO BEDTIME PRN 03/09/20 10/02/20 donepezil 10 mg tablet 10 mg PO BEDTIME 03/09/20 10/02/20 memantine 10 mg tablet 10 mg PO BEDTIME 03/09/20 10/02/20 vpnvchzg-lwu-sdszo acid 0.4 1 tab PO DAILY 03/09/20 10/02/20 mg-lycopene 300 mcg-lutein 250 mcg tablet (Centrum Silver) hydrochlorothiazide 12.5 mg capsule 12.5 mg PO QAM 10/02/20 10/02/20 lisinopril 5 mg tablet 1 tab PO DAILY 01/02/21 Previous Rx's Medication Instructions Recorded amlodipine 10 mg tablet 10 mg PO DAILY #30 tab 05/06/20 evolocumab 140 mg/mL subcutaneous 140 mg SUBCUT Q2W 90 Days #7 ml 09/27/20 pen injector (alaynajude RouseAdonis) hydralazine 100 mg tablet 100 mg PO TID #270 tab 10/02/20 Allergies Allergy/AdvReac Type Severity Reaction Status Date / Time diazepam [DIAZEPAM] Allergy Severe RASH Verified 10/10/20 11:11 Ovgiijv-HLF-HuG Reductase Allergy Unknown UNKNOWN Verified 10/10/20 11:11 Inhibitor [[id number]-THA REDUCTASE INHIBITOR] Review of Systems Review of Systems: Constitutional : No Weight loss, No Fever, No Chills, No Night Sweats, complaining of fatigue and general malaise ENT/Mouth : No Hearing loss, No Ear Pain, No Nasal Congestion, No Sinus Pain, No Hoarseness, No sore throat, No Rhinorrhea, No Swallowing Difficulty Eyes: No Eye Pain, No Swelling, No Redness, No Foreign Body, No Discharge, No Vision Changes Cardiovascular : No Chest Pain, No SOB, No Dyspnea on Exertion, No Orthopnea, No Edema, No Palpitations Respiratory : No Cough, No Sputum, No Wheezing, No Smoke Exposure, No Dyspnea Gastrointestinal : No Nausea, No Vomiting, No Diarrhea, No Constipation, No abdominal Pain, No Hematochezia, No Melena Genitourinary : no irregular bleeding, No Dysuria, No Urinary Frequency, No Hematuria, No Urinary Incontinence, No Urgency, No Flank Pain, No Urinary Flow Changes, No Hesitancy Musculoskeletal : No joint pain, No Myalgias, No Joint Swelling Skin : No Skin Lesions, No rash Neuro : No Weakness, No Numbness, No Paresthesias, No Loss of Consciousness, No Dizziness, No Headache Psych : No Anxiety/Panic, No Depression, No SI/HI/AH/VH, No Social Issues, Heme/Lymph: No Bruising, No Bleeding,No Lymphadenopathy Endocrine : No Polyuria, No Polydipsia, No Temperature Intolerance [facility] Past Medical History Medical History Anemia CLL (chronic lymphocytic leukemia) Coronary artery calcification seen on CAT scan Dementia Essential hypertension Hip dislocation, left Hyperlipidemia Other and unspecified hyperlipidemia Peripheral artery disease Peripheral vascular disease Pulmonary fibrosis Ulcerative colitis Vertigo Surgical History H/O carotid endarterectomy History of hip replacement History of liver biopsy S/P popliteal-distal bypass Status post carotid endarterectomy Family History Family History Father No problems noted. Mother No problems noted. Social History Social History Alcohol intake: never Patient Tobacco Use Status: Current someday Tobacco user Cigarettes Per Day: 3 Use of substances other than those prescribed or required for medical reasons: No Advance Directives: No Advance Directives Information Provided: Yes 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 Physical Exam Vital Signs: Vital Signs: Last Vital Signs Temp 99.6 F 01/02/21 19:36 Pulse 87 01/02/21 19:36 Resp 22 H 01/02/21 19:36 BP 223/91 H 01/02/21 19:36 Pulse Ox 94 01/02/21 19:36 Oxygen Flow Rate 2 01/02/21 15:25 Body Mass Index 22.3 Const: Other: Appearance: Alert. Oriented X3. No acute distress. Eyes: Pupils equal, round and reactive to light. ENT: Pharynx normal. Neck: Normal inspection. Neck supple. No lymph nodes noted. No crepitus CVS: Normal heart rate and rhythm. Pulses normal. Normal S1 and S2 Respiratory: No respiratory distress. Breath sounds normal. Occasionally cough ing phlegm Abdomen: Soft and nontender. No rigidity. No distention. Skin: Warm to touch, Normal skin color. Normal skin turgor. Extremities: No lower extremity edema. No Lacerations. No Rash Neuro: Oriented X 3. No motor deficit. No sensory deficit. Moving all extermities. No slurred speech. Course Course Course Narrative: I discussed with the patient that she has a UTI, patient also has urinary retention, likely causing elevated blood pressure. Patient agrees to the Darby catheter. Patient's hemoglobin dropped from baseline of 11-8.5, guaiac positive. Patient is not on any blood thinners. Also, patient has acute kidney injury. Patient being admitted MDM - Chest Pain Lab Data Result diagrams: 01/02/21 16:09 01/02/21 16:09 Labs: Lab Results 01/02/21 01/02/21 01/02/21 Range/Units 16:09 16:09 16:09 WBC 7.9 (4.8-10.8) X10*3/uL RBC 2.68 L (4.20-5.50) X10*6/uL Hgb 8.5 L (12.0-16.0) g/dl Hct 25.6 L (37.0-47.0) % MCV 95.5 (80.0-98.0) fL MCH 31.7 (27.0-33.0) pg MCHC 33.2 (31.0-35.0) g/dl RDW 13.8 (11.0-16.0) % Plt Count 162 (160-400) X10*3/uL MPV 9.8 (9.4-12.3) fL Immature Gran % (Auto) 3.2 H (0.0-0.4) % Neut % (Auto) 91.8 H (45-73) % Lymph % (Auto) 4.3 L (20-40) % [place] % (Auto) 0.3 L (2-11) % Eos % (Auto) 0.3 (0-4) % Baso % (Auto) 0.1 (0-2) % Lymph # (Auto) 0.3 L (1.2-4.9) X10*3/uL [place] # (Auto) 0.0 L (0.1-1.2) X10*3/uL Eos # (Auto) 0.0 (0.0-0.4) X10*3/uL Baso # (Auto) 0.0 (0.0-0.2) X10*3/uL Abs Immat Gran (auto) 0.25 H (0.00-0.03) X10*3/uL Absolute Neuts (auto) 7.3 (2.0-8.3) x10*3/uL Absolute Nucleated RBC 0.020 H (0.0-0.012) X10*3/uL Nucleated RBC % (auto) 0.3 H (0.0-0.2) /100WBC Smear Tech's Comments VERIFIED PT (9.9-13.0) SEC INR (0.9-1.1) Sodium 137 (135-145) mmol/L Potassium 4.7 (3.3-5.1) mmol/L Chloride 106 (96-108) mmol/L Carbon Dioxide 22 (22-29) mmol/L Anion Gap 14 (12-20) BUN 61 H (9-16) mg/dL Creatinine 1.80 H (0.5-1.4) mg/dL Estim Creat Clear Calc 21.5 Estimated GFR 27 Random Glucose 75 (60-115) mg/dL Lactic Acid (0.5-2.0) mmol/L Calcium 8.7 D (8.4-10.2) mg/dL Total Bilirubin 1.6 H (0.0-1.0) mg/dL Direct Bilirubin 0.7 H (0.0-0.5) mg/dL AST 45 H D (5-31) U/L ALT 20 (0-31) U/L Alkaline Phosphatase 109 D (39-117) U/L Troponin I High Sens 9.8 (<3.5-17.0) ng/L B-Natriuretic Peptide (<100) pg/mL Total Protein 5.9 L (6.5-8.0) g/dL Albumin 3.7 (3.5-5.0) g/dL Urine Color Urine Appearance Urine pH (5.0-8.0) Ur Specific [place] (1.005-1.025) Urine Protein (NEG-TRACE) MG/DL Urine Glucose (UA) (NEG) MG/DL Urine Ketones (NEG) MG/DL Urine Blood (NEG) Urine Nitrite (NEG) Ur Leukocyte Esterase (NEG) Urine RBC (0) /HPF Urine WBC (0-4) /HPF Ur Squamous Epith Cells /LPF Talc Crystals /LPF Amorphous Sediment /LPF Urine Bacteria /LPF Urine Mucus /LPF Stool Occult Blood (NEGATIVE) COVID-19 (GENIE) (Negative) COVID-19 Clin Com 01/02/21 01/02/21 01/02/21 Range/Units 16:09 16:09 16:09 WBC (4.8-10.8) X10*3/uL RBC (4.20-5.50) X10*6/uL Hgb (12.0-16.0) g/dl Hct (37.0-47.0) % MCV (80.0-98.0) fL MCH (27.0-33.0) pg MCHC (31.0-35.0) g/dl RDW (11.0-16.0) % Plt Count (160-400) X10*3/uL MPV (9.4-12.3) fL Immature Gran % (Auto) (0.0-0.4) % Neut % (Auto) (45-73) % Lymph % (Auto) (20-40) % [place] % (Auto) (2-11) % Eos % (Auto) (0-4) % Baso % (Auto) (0-2) % Lymph # (Auto) (1.2-4.9) X10*3/uL [place] # (Auto) (0.1-1.2) X10*3/uL Eos # (Auto) (0.0-0.4) X10*3/uL Baso # (Auto) (0.0-0.2) X10*3/uL Abs Immat Gran (auto) (0.00-0.03) X10*3/uL Absolute Neuts (auto) (2.0-8.3) x10*3/uL Absolute Nucleated RBC (0.0-0.012) X10*3/uL Nucleated RBC % (auto) (0.0-0.2) /100WBC Smear Tech's Comments PT 12.1 (9.9-13.0) SEC INR 1.1 (0.9-1.1) Sodium (135-145) mmol/L Potassium (3.3-5.1) mmol/L Chloride (96-108) mmol/L Carbon Dioxide (22-29) mmol/L Anion Gap (12-20) BUN (9-16) mg/dL Creatinine (0.5-1.4) mg/dL Estim Creat Clear Calc Estimated GFR Random Glucose (60-115) mg/dL Lactic Acid 1.2 (0.5-2.0) mmol/L Calcium (8.4-10.2) mg/dL Total Bilirubin (0.0-1.0) mg/dL Direct Bilirubin (0.0-0.5) mg/dL AST (5-31) U/L ALT (0-31) U/L Alkaline Phosphatase (39-117) U/L Troponin I High Sens (<3.5-17.0) ng/L B-Natriuretic Peptide 136 H (<100) pg/mL Total Protein (6.5-8.0) g/dL Albumin (3.5-5.0) g/dL Urine Color Urine Appearance Urine pH (5.0-8.0) Ur Specific [place] (1.005-1.025) Urine Protein (NEG-TRACE) MG/DL Urine Glucose (UA) (NEG) MG/DL Urine Ketones (NEG) MG/DL Urine Blood (NEG) Urine Nitrite (NEG) Ur Leukocyte Esterase (NEG) Urine RBC (0) /HPF Urine WBC (0-4) /HPF Ur Squamous Epith Cells /LPF Talc Crystals /LPF Amorphous Sediment /LPF Urine Bacteria /LPF Urine Mucus /LPF Stool Occult Blood (NEGATIVE) COVID-19 (GENIE) (Negative) COVID-19 Clin Com 01/02/21 01/02/21 01/02/21 Range/Units 16:09 17:04 19:25 WBC (4.8-10.8) X10*3/uL RBC (4.20-5.50) X10*6/uL Hgb (12.0-16.0) g/dl Hct (37.0-47.0) % MCV (80.0-98.0) fL MCH (27.0-33.0) pg MCHC (31.0-35.0) g/dl RDW (11.0-16.0) % Plt Count (160-400) X10*3/uL MPV (9.4-12.3) fL Immature Gran % (Auto) (0.0-0.4) % Neut % (Auto) (45-73) % Lymph % (Auto) (20-40) % [place] % (Auto) (2-11) % Eos % (Auto) (0-4) % Baso % (Auto) (0-2) % Lymph # (Auto) (1.2-4.9) X10*3/uL [place] # (Auto) (0.1-1.2) X10*3/uL Eos # (Auto) (0.0-0.4) X10*3/uL Baso # (Auto) (0.0-0.2) X10*3/uL Abs Immat Gran (auto) (0.00-0.03) X10*3/uL Absolute Neuts (auto) (2.0-8.3) x10*3/uL Absolute Nucleated RBC (0.0-0.012) X10*3/uL Nucleated RBC % (auto) (0.0-0.2) /100WBC Smear Tech's Comments PT (9.9-13.0) SEC INR (0.9-1.1) Sodium (135-145) mmol/L Potassium (3.3-5.1) mmol/L Chloride (96-108) mmol/L Carbon Dioxide (22-29) mmol/L Anion Gap (12-20) BUN (9-16) mg/dL Creatinine (0.5-1.4) mg/dL Estim Creat Clear Calc Estimated GFR Random Glucose (60-115) mg/dL Lactic Acid (0.5-2.0) mmol/L Calcium (8.4-10.2) mg/dL Total Bilirubin (0.0-1.0) mg/dL Direct Bilirubin (0.0-0.5) mg/dL AST (5-31) U/L ALT (0-31) U/L Alkaline Phosphatase (39-117) U/L Troponin I High Sens (<3.5-17.0) ng/L B-Natriuretic Peptide (<100) pg/mL Total Protein (6.5-8.0) g/dL Albumin (3.5-5.0) g/dL Urine Color YELLOW Urine Appearance HAZY Urine pH 6.0 (5.0-8.0) Ur Specific [place] 1.010 (1.005-1.025) Urine Protein TRACE (NEG-TRACE) MG/DL Urine Glucose (UA) NEG (NEG) MG/DL Urine Ketones NEG (NEG) MG/DL Urine Blood NEG (NEG) Urine Nitrite NEG (NEG) Ur Leukocyte Esterase TRACE H (NEG) Urine RBC 0 (0) /HPF Urine WBC 0-2 (0-4) /HPF Ur Squamous Epith Cells 3+ /LPF Talc Crystals 1+ /LPF Amorphous Sediment 1+ /LPF Urine Bacteria 2+ /LPF Urine Mucus 3+ /LPF Stool Occult Blood POSITIVE (NEGATIVE) COVID-19 (EGNIE) Negative (Negative) COVID-19 Clin Com See Note Discharge Plan Discharge Clinical Impression: Acute UTI, Acute kidney injury, Occult GI bleeding, Acute urinary retention, Hypertension Patient Disposition: Admitted As Inpatient Prescriptions: No Action Repatha SureClick 140 mg/mL pen injector 140 mg subcut Q2W 90 Days Qty: 7 RF: 3 amlodipine 10 mg tablet 10 mg PO DAILY Qty: 30 RF: 0 lisinopril 5 mg tablet 1 tab PO DAILY RF: 0 hydrochlorothiazide 12.5 mg capsule 12.5 mg PO QAM RF: 0 hydralazine 100 mg tablet 100 mg PO TID Qty: 270 RF: 4 clonazepam 0.5 mg tablet 1 mg PO BEDTIME PRN (Reason: Anxiety) RF: 0 calcitonin (salmon) 200 unit/actuation spray,non-aerosol See Rx Instructions .ROUTE .COMPLEX RF: 0 memantine 10 mg tablet 10 mg PO BEDTIME RF: 0 donepezil 10 mg tablet 10 mg PO BEDTIME RF: 0 aspirin 81 mg tablet,delayed release (DR/EC) 81 mg PO DAILY RF: 0 cholecalciferol (vitamin D3) 250 mcg (10,000 unit) capsule 250 mcg PO DAILY RF: 0 ascorbic acid (vitamin C) 1,000 mg tablet 1 g PO DAILY RF: 0 Centrum Silver 0.4-300-250 mg-mcg-mcg tablet 1 tab PO DAILY RF: 0
--- NOTE | 2021-01-02 16:02 | ECG_ITS ---
Test Reason : CHEST PAIN/SOB Blood Pressure : / mmHG Vent. Rate : 084 BPM Atrial Rate : 084 BPM P-R Int : 172 ms QRS Dur : 068 ms QT Int : 374 ms P-R-T Axes : 038 030 068 degrees QTc Int : 441 ms Sinus rhythm with Premature supraventricular complexes Nonspecific T wave abnormality Lateral leads Abnormal ECG When compared with ECG of 04-MAR-2020 15:16, Premature supraventricular complexes are now Present T wave amplitude has decreased in Lateral leads Referred By: Vicky Stuart Electronically Signed By:AYDEN BUCIO MD
[2021-01-02] MEDS: 0.9 % Sodium Chloride 1,000 ML 999 ML IVCONT (16:08)
[2021-01-02] MEDS: Acetaminophen 325 MG TABLET 650 MG PO (16:15)
[2021-01-02 16:26] LABS: Basophils Percent Auto 0.1 % (0-2); Eosinophils Percent Auto 0.3 % (0-4); Hematocrit 25.6 % (37.0-47.0); Hemoglobin 8.5 g/dl (12.0-16.0); Imm Gran Abs Auto 0.25 X10*3/uL (0.00-0.03); Imm Gran Pct Auto 3.2 % (0.0-0.4); Lymphocytes Absolute Auto 0.3 X10*3/uL (1.2-4.9); Lymphocytes Percent Auto 4.3 % (20-40); MANUAL DIFF FLAG SCAN; Mean Corpuscular HGB Conc 33.2 g/dl (31.0-35.0); Mean Corpuscular Hemoglobin 31.7 pg (27.0-33.0); Mean Corpuscular Volume 95.5 fL (80.0-98.0); Mean Platelet Volume 9.8 fL (9.4-12.3); Monocytes Percent Auto 0.3 % (2-11); NRBC Pct Auto 0.3 /100WBC (0.0-0.2); Neutrophils Absolute Auto 7.3 x10*3/uL (2.0-8.3); Neutrophils Percent Auto 91.8 % (45-73); Platelet Count 162 X10*3/uL (160-400); Red Blood Count 2.68 X10*6/uL (4.20-5.50); Red Cell Distribution Width 13.8 % (11.0-16.0); SCAN SMEAR FLAG 1; White Blood Count 7.9 X10*3/uL (4.8-10.8)
[2021-01-02 16:31] LABS: INTERNATIONAL NORM RATIO 1.1 (0.9-1.1); Prothrombin Time 12.1 SEC (9.9-13.0)
[2021-01-02 16:35] LABS: Lactic Acid 1.2 mmol/L (0.5-2.0)
[2021-01-02 16:45] LABS: B Type Natriuretic Peptide 136 pg/mL (<100); SLIDE REVIEW VERIFIED; Troponin-I High Sensitivity 9.8 ng/L (<3.5-17.0)
[2021-01-02 16:49] LABS: Alanine Aminotransferase 20 U/L (0-31); Albumin Level 3.7 g/dL (3.5-5.0); Alkaline Phosphatase 109 U/L (39-117); Anion Gap 14 (12-20); Aspartate Amino Transferase 45 U/L (5-31); Bilirubin Direct 0.7 mg/dL (0.0-0.5); Bilirubin Total 1.6 mg/dL (0.0-1.0); Blood Urea Nitrogen 61 mg/dL (9-16); Calcium 8.7 mg/dL (8.4-10.2); Carbon Dioxide 22 mmol/L (22-29); Chloride 106 mmol/L (96-108); Creatinine Clr Calc Pharmacy 21.5; Estimated Glomerular Filt Rate 27; Glucose Random 75 mg/dL (60-115); Potassium 4.7 mmol/L (3.3-5.1); Sodium 137 mmol/L (135-145); Total Protein 5.9 g/dL (6.5-8.0)
[2021-01-02 16:56] LABS: COVID-19 Test Negative (Negative)
[2021-01-02 17:10] LABS: Appearance Urine HAZY; Color Urine YELLOW; Glucose Urine UA NEG (NEG); Leukocyte Esterase Urine TRACE (NEG); Nitrite Urine NEG (NEG); UACC Culture Trigger YES; Urine Blood NEG (NEG); Urine Ketones NEG (NEG); Urine Protein TRACE MG/DL (NEG-TRACE)
[2021-01-02 17:18] LABS: Amorphous Sediment Urine 1+ /LPF; Mucus Urine 3+ /LPF; Squamous Epithelial Cell Urine 3+ /LPF; Urine Talc Crystals 1+ /LPF
[2021-01-02 17:19] LABS: Bacteria Urine 2+ /LPF; RBC Urine 0 /HPF (0); WBC Urine 0-2 /HPF (0-4)
--- NOTE | 2021-01-02 19:22 | PC.NURSE ---
pt states she has the need to urinate. bladder scanned for 935 cc. yellow. pt has a uti. pt stool collected
[2021-01-02 19:30] LABS: OBS Int Ctl Valid YES; OBS1 POSITIVE (NEGATIVE)
--- NOTE | 2021-01-02 19:55 | PM.IMHP ---
History of Present Illness Date of Service: 01/02/21 Chief Complaint: Not feeling well 80-year-old female with a past medical history of hypertension, hyperlipidemia, CLL, peripheral vascular disease, pulmonary fibrosis, ulcerative colitis, dementia presented to the hospital via EMS with a chief complaint of not feeling well. Patient initially reported chest pain/back pain to the EMS; received sublingual nitroglycerin and aspirin. EMS also noted her blood pressure 240/120; subsequently brought to the ER for further evaluation. Patient denied any chest pain palpitations lightheadedness or dizziness at the time of my entry. Complains of mild abdominal discomfort. Denies any nausea vomiting or diarrhea. Review of all other systems is negative except mentioned above ER course: Per ER team patient denied any chest pain or back pain on presentation; systolic blood pressure initially noted to be in 150s but subsequently increased to 210s; patient was noted to have urinary retention retaining up to 900 cc of urine; ER consisting Darby catheter; urinalysis abnormal consistent with UTI-given antibiotics; lab showed mild MATILDE as well. EKG was nonischemic; troponin was 9.8; admitted to the hospital for further management [facility] Medical History Anemia CLL (chronic lymphocytic leukemia) Coronary artery calcification seen on CAT scan Dementia Essential hypertension Hip dislocation, left Hyperlipidemia Other and unspecified hyperlipidemia Peripheral artery disease Peripheral vascular disease Pulmonary fibrosis Ulcerative colitis Vertigo Family History Father No problems noted. Mother No problems noted. 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 Allergies Allergy/AdvReac Type Severity Reaction Status Date / Time diazepam [DIAZEPAM] Allergy Severe RASH Verified 10/10/20 11:11 Wprlwym-AST-EnB Reductase Allergy Unknown UNKNOWN Verified 10/10/20 11:11 Inhibitor [[id number] REDUCTASE INHIBITOR] Home Medications Medication Instructions Recorded Confirmed Last Taken Type ascorbic acid (vitamin C) 1,000 mg 1 g PO DAILY tab 03/09/20 10/02/20 Unknown History tablet aspirin 81 mg tablet,delayed 81 mg PO DAILY 03/09/20 10/02/20 Unknown History release calcitonin (salmon) 200 INTRANASAL 03/09/20 10/02/20 Unknown History unit/actuation nasal spray cholecalciferol (vitamin D3) 250 250 mcg PO DAILY 03/09/20 10/02/20 Unknown History mcg (10,000 unit) capsule clonazepam 0.5 mg tablet 0.5 mg PO BID PRN 03/09/20 10/02/20 Unknown History donepezil 10 mg tablet 10 mg PO DAILY 03/09/20 10/02/20 Unknown History memantine 10 mg tablet 10 mg PO DAILY 03/09/20 10/02/20 Unknown History atflabrd-fhe-pywpc acid 0.4 1 tab PO DAILY 03/09/20 10/02/20 Unknown History mg-lycopene 300 mcg-lutein 250 mcg tablet (Centrum Silver) hydrochlorothiazide 12.5 mg capsule 12.5 mg PO QAM 10/02/20 10/02/20 Unknown History lisinopril 5 mg tablet 1 tab PO DAILY 01/02/21 Unknown History Physical Exam Vital Signs and Narrative: Vital Signs: Last Vital Signs Temp 99.6 F 01/02/21 19:36 Pulse 87 01/02/21 19:36 Resp 22 H 01/02/21 19:36 BP 223/91 H 01/02/21 19:36 Pulse Ox 94 01/02/21 19:36 Oxygen Flow Rate 2 01/02/21 15:25 Body Mass Index 22.3 Gen: Appears be in no acute distress; speaks in full sentences HEENT: NCAT, Moist mucosa. Pulmonary: Vesicular breath sounds, fair air entry no wheezing CVS: Normal S1-S2 Abdomen: BS+, Soft, Nontender Extremities: Warm well perfused Neuro: Alert and awake. Follows commands. Results Labs CBC and Chem 7: 01/02/21 16:09 01/02/21 16:09 Labs: Laboratory Results - last 24 hr 01/02/21 01/02/21 01/02/21 16:09 16:09 16:09 MCV 95.5 MCH 31.7 MCHC 33.2 RDW 13.8 Plt Count 162 MPV 9.8 Immature Gran % (Auto) 3.2 H Neut % (Auto) 91.8 H Lymph % (Auto) 4.3 L [place] % (Auto) 0.3 L Eos % (Auto) 0.3 Baso % (Auto) 0.1 Lymph # (Auto) 0.3 L [place] # (Auto) 0.0 L Eos # (Auto) 0.0 Baso # (Auto) 0.0 Abs Immat Gran (auto) 0.25 H Absolute Neuts (auto) 7.3 Absolute Nucleated RBC 0.020 H Nucleated RBC % (auto) 0.3 H Smear Tech's Comments VERIFIED PT INR Anion Gap 14 Creatinine 1.80 H Estim Creat Clear Calc 21.5 Estimated GFR 27 Random Glucose 75 Lactic Acid Calcium 8.7 D Total Bilirubin 1.6 H Direct Bilirubin 0.7 H AST 45 H D ALT 20 Alkaline Phosphatase 109 D Troponin I High Sens 9.8 B-Natriuretic Peptide Total Protein 5.9 L Albumin 3.7 Urine Color Urine Appearance Urine pH Ur Specific [place] Urine Protein Urine Glucose (UA) Urine Ketones Urine Blood Urine Nitrite Ur Leukocyte Esterase Urine RBC Urine WBC Ur Squamous Epith Cells Talc Crystals Amorphous Sediment Urine Bacteria Urine Mucus Stool Occult Blood COVID-19 (GENIE) COVID-19 Clin Com 01/02/21 01/02/21 01/02/21 16:09 16:09 16:09 MCV MCH MCHC RDW Plt Count MPV Immature Gran % (Auto) Neut % (Auto) Lymph % (Auto) [place] % (Auto) Eos % (Auto) Baso % (Auto) Lymph # (Auto) [place] # (Auto) Eos # (Auto) Baso # (Auto) Abs Immat Gran (auto) Absolute Neuts (auto) Absolute Nucleated RBC Nucleated RBC % (auto) Smear Tech's Comments PT 12.1 INR 1.1 Anion Gap Creatinine Estim Creat Clear Calc Estimated GFR Random Glucose Lactic Acid 1.2 Calcium Total Bilirubin Direct Bilirubin AST ALT Alkaline Phosphatase Troponin I High Sens B-Natriuretic Peptide 136 H Total Protein Albumin Urine Color Urine Appearance Urine pH Ur Specific [place] Urine Protein Urine Glucose (UA) Urine Ketones Urine Blood Urine Nitrite Ur Leukocyte Esterase Urine RBC Urine WBC Ur Squamous Epith Cells Talc Crystals Amorphous Sediment Urine Bacteria Urine Mucus Stool Occult Blood COVID-19 (GENIE) COVID-19 Clin Com 01/02/21 01/02/21 01/02/21 16:09 17:04 19:25 MCV MCH MCHC RDW Plt Count MPV Immature Gran % (Auto) Neut % (Auto) Lymph % (Auto) [place] % (Auto) Eos % (Auto) Baso % (Auto) Lymph # (Auto) [place] # (Auto) Eos # (Auto) Baso # (Auto) Abs Immat Gran (auto) Absolute Neuts (auto) Absolute Nucleated RBC Nucleated RBC % (auto) Smear Tech's Comments PT INR Anion Gap Creatinine Estim Creat Clear Calc Estimated GFR Random Glucose Lactic Acid Calcium Total Bilirubin Direct Bilirubin AST ALT Alkaline Phosphatase Troponin I High Sens B-Natriuretic Peptide Total Protein Albumin Urine Color YELLOW Urine Appearance HAZY Urine pH 6.0 Ur Specific [place] 1.010 Urine Protein TRACE Urine Glucose (UA) NEG Urine Ketones NEG Urine Blood NEG Urine Nitrite NEG Ur Leukocyte Esterase TRACE H Urine RBC 0 Urine WBC 0-2 Ur Squamous Epith Cells 3+ Talc Crystals 1+ Amorphous Sediment 1+ Urine Bacteria 2+ Urine Mucus 3+ Stool Occult Blood POSITIVE COVID-19 (GENIE) Negative COVID-19 Clin Com See Note Imaging Radiologist's Impressions: Impressions Chest X-Ray 01/02/21 16:02 IMPRESSION: No radiographic evidence of pneumonia. Assessment and Plan (1) UTI (urinary tract infection): Status: Acute (2) MATILDE (acute kidney injury): Status: Acute (3) Guaiac positive stools: Status: Acute (4) Hypertensive urgency: Status: Acute (5) Urine retention: Status: Acute 80-year-old female with a past medical history of hypertension, hyperlipidemia, CLL, peripheral vascular disease, pulmonary fibrosis, ulcerative colitis, dementia presented to the hospital via EMS with a chief complaint of not feeling well. Noted to have UTI/MATILDE/hypertensive urgency. Admitted for further management. UTI: Continue ceftriaxone. Follow-up urine cultures. Hypertensive urgency: Labetalol p.r.n.. Will obtain CT head. Continue home amlodipine, hydralazine. Hold lisinopril, hydrochlorothiazide secondary to MATILDE. MATILDE on CKD: Patient's baseline creatinine around 1.3. On presentation patient's creatinine is 1.8. Avoid nephrotoxins. Pharmacy to renally dose his home medications. Gentle fluids. Likely postrenal as patient was noted to be retaining 900 cc of urine. If patient unable to urinate on the commode will order Darby catheter. Urinary retention: Question in the setting of UTI. Urology consult. Darby catheter. Anemia: Patient's hemoglobin dropped from 11-8.5. Stool guaiac was positive. IV ppi. GI consult. Serial H&H. Hold home aspirin. History of dementia: Continue home donepezil, memantine DVT prophylaxis: SCD boots Code status: Full code Quality Stroke Does the patient have a stroke diagnosis?: No VTE Prior VTE?: No VTE Risk Level:: Medical - moderate - high VTE Device Contraindication: N/A - Device Ordered VTE Drug Contraindication: Treatment Not Indicated
[2021-01-02] MEDS: cefTRIAXone sodium 1 GM in 0.9 % Sodium Chloride 50 ML IV (20:35)
[2021-01-02] MEDS: Dextrose 5 % and 0.45 % NaCl 1,000 ML 50 ML IVCONT (20:48)
--- NOTE | 2021-01-02 21:44 | PHA.MEDREC ---
Pharmacy Consult ? Medication Reconciliation Pharmacy has completed the medication reconciliation. Repatha dose due 01/03 Thanks Eze Gregorio
[2021-01-02] MEDS: Labetalol HCL 100 MG TABLET PO (21:45)
[2021-01-03] VITALS (12 sets, daily range): BP systolic 144–182; BP diastolic 45–84; PULSE 61–77; RESP 15–19; TEMP 36.5–36.9; O2SAT 94–98
--- NOTE | 2021-01-03 03:07 | PC.NURSE ---
pt pulled out her iv and ivf infusing onto the floor. 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
[2021-01-03 03:29] LABS: MANUAL DIFF FLAG NO
[2021-01-03 03:30] LABS: Basophils Percent Auto 0.2 % (0-2); Eosinophils Percent Auto 0.3 % (0-4); Hematocrit 25.2 % (37.0-47.0); Hemoglobin 8.9 g/dl (12.0-16.0); Imm Gran Abs Auto 0.16 X10*3/uL (0.00-0.03); Lymphocytes Absolute Auto 1.1 X10*3/uL (1.2-4.9); Mean Corpuscular HGB Conc 35.3 g/dl (31.0-35.0); Mean Corpuscular Hemoglobin 32.5 pg (27.0-33.0); Mean Platelet Volume 9.6 fL (9.4-12.3); Monocytes Absolute Auto 0.3 X10*3/uL (0.1-1.2); NRBC Pct Auto 0.2 /100WBC (0.0-0.2); Neutrophils Percent Auto 89.5 % (45-73); Platelet Count 102 X10*3/uL (160-400); Red Blood Count 2.74 X10*6/uL (4.20-5.50); Red Cell Distribution Width 13.7 % (11.0-16.0); White Blood Count 15.7 X10*3/uL (4.8-10.8)
[2021-01-03 03:48] LABS: Anion Gap 12 (12-20); Blood Urea Nitrogen 53 mg/dL (9-16); Calcium 8.7 mg/dL (8.4-10.2); Carbon Dioxide 23 mmol/L (22-29); Chloride 109 mmol/L (96-108); Creatinine Clr Calc Pharmacy 26.1; Estimated Glomerular Filt Rate 34; Glucose Random 108 mg/dL (60-115); Potassium 4.2 mmol/L (3.3-5.1); Sodium 140 mmol/L (135-145)
[2021-01-03] MEDS: Pantoprazole Sodium 40 MG/10 ML VIAL IVPUSH (06:28)
[2021-01-03] MEDS: 0.9 % Sodium Chloride Flush 3 ML SYRINGE IVFLUSH ×2 (08:06→17:23)
[2021-01-03] MEDS: hydroCHLOROthiazide 12.5 MG TABLET PO (08:06)
[2021-01-03] MEDS: Multivitamin TABLET 1 TAB PO (08:08)
[2021-01-03] MEDS: lisinopriL 5 MG TABLET PO (08:08)
[2021-01-03] MEDS: Ascorbic Acid 500 MG TABLET 1000 MG PO (08:08)
[2021-01-03] MEDS: hydrALAZINE HCl 50 MG TABLET 100 MG PO ×3 (08:09→20:54)
[2021-01-03 10:26] LABS: Alanine Aminotransferase 21 U/L (0-31); Albumin Level 3.6 g/dL (3.5-5.0); Alkaline Phosphatase 79 U/L (39-117); Aspartate Amino Transferase 95 U/L (5-31); Bilirubin Direct 0.4 mg/dL (0.0-0.5); Bilirubin Total 0.9 mg/dL (0.0-1.0); Total Protein 6.1 g/dL (6.5-8.0)
[2021-01-03 11:07] LABS: Troponin-I High Sensitivity 189.5 ng/L (<3.5-17.0)
--- NOTE | 2021-01-03 13:00 | CA_ITS ---
Transthoracic Echocardiogram Patient (Last, First, Middle): Georgina Jamil J Gender: Female Date of : 1940 Age: 80 Procedure Date: 01/03/2021 Procedure Type: Transthoracic Echocardiogram Location: [facility] – [place] Height: 162.56 cm Weight: 58.97 kg BSA: 1.63 m2 Heart Rate: bpm BP: 174 / [address] Sweeper Operator: Referring MD: Lasha Parkinson MD Symptoms: chest pain, trop Study Quality: Good ECG Rhythm: Sinus Conclusions: - The left ventricular systolic function is hyperdynamic. The visually estimated ejection fraction is >70%. - There is severely increased left ventricular wall thickness. - No obvious valvular pathology seen on this study. Findings Left Ventricle Normal left ventricular cavity size. There is severely increased left ventricular wall thickness. The left ventricular systolic function is hyperdynamic. The visually estimated ejection fraction is >70%. There is no evidence of regional wall motion abnormalities. E/E prime ratio is between 8 and 15 consistent with indeterminate filling pressures. Evidence suggests grade I (mild) diastolic dysfunction. Right Ventricle Normal right ventricular cavity size and systolic function. Atria Both atria are normal in size. Aortic Valve There is a normal trileaflet aortic valve. There is no aortic valve stenosis. There is no aortic valve regurgitation. Mitral Valve The mitral valve appears normal. There is mild mitral valve regurgitation. There is no mitral valve stenosis. Pulmonic Valve The pulmonic valve was not well visualized. Tricuspid Valve Normal tricuspid valve structure. There is trace tricuspid valve regurgitation. The pulmonary artery systolic pressure is normal. Great Vessels The aortic annulus, sinuses of valsalva, and asc aorta are normal in size. Venous The inferior vena cava is normal in size and collapses greater than 50% with inspiration. Pericardium/Pleural There is no evidence of pericardial effusion. Prior Study Comparison Changes noted compared to prior study dated: 05/19/2018. Progression of LVH. Recommendations, Care & Conclusions No obvious valvular pathology seen on this study. Measurements 2D Linear Measurements IVSd: 1.44 0.6-0.9/0.6-1.0 cm LVIDd: 3.75 3.9-5.3/4.2-5.9 cm LVIDd Index: 2.30 2.4-3.2/2.2-3.1 cm/m2 LVIDs: 2.42 2.0-3.6 cm LVPWd: 1.43 0.7-1.1 cm Ao Root: 3.00 2.1-3.5 cm LA Diam: 3.50 2.7-3.8/3.0-4.0 cm LAIDs Index: 2.15 1.5-2.3 cm/m2 LV Mass: 246.88 67-162/88-224 g LV Mass Index: 151.46 43-95/49-115 g/m2 LVOT Diam: 2.20 3.0+(-)1.3 cm Mitral Valve MV Pk E: 0.52 MV PK A: 0.99 MV Decel Time: 199.00 E/A: 0.50 E'Lateral: 6.74 E'Medial: 4.68 E/E' Med: 11.10 E/E' Lat: 7.70 PHT: 58.00 MVA PHT: 3.79 Decel [place]: 2.61 Aortic Valve AoV Pk [place]: 1.62 AoV Mn [place]: 1.04 AoV VTI: 0.41 AoV Pk Grad: 10.00 Aov Mn Grad: 5.00 MICHELLE Cont.VTI: 3.08 LVOT LVOT Pk [place]: 1.14 LVOT Mn [place]: 0.83 LVOT VTI: 0.34 LVOT Pk Grad: 5.00 LVOT Mn Grad: 3.00 LVOT Diam: 2.20 LVOT Area: 3.80 Diastolic Function MV Pk E: 0.52 MV Pk A: 0.99 E/A: 0.50 E'Medial: 4.68 E/E' Med: 11.10 E' Laterial: 6.74 E/E' Lat: 7.70 Right Ventricle TAPSE (mm): 27.00 Tricuspid Valve TR Pk [place]: 2.25 TR Pk Grad: 20.00 Great Vessels Aorta Ao Root-2D: 3.00 2.0-3.7 cm Ao Asc: 3.00 2.1-3.4 cm Pulmonary Valve PV Pk [place]: 0.94 Peak PV Grad: 4.00 Updated in Other Vendor System with Status of Final Abimael Montana MD electronically signed on 01/03/2021 4:32:53 PM with status of Final
--- NOTE | 2021-01-03 15:15 | MHC.CM.PN ---
CM met with admitted patient with bed assignment pending. Orientated to person and place. Dementia. IMM reviewed and signed per protocol 01/03/2021 @1500. HCP on file. HCP/ Shekhar Jamil ([phone], -C) tells CM that pt has poor STM. given condition update. aware that pt does not yet have a room assignment and will remain in the ED. Pt is fully vaccinated with Pfizer and had the booster. Pt lives with and son. Has a walker and a cane. Has no services. D/C plan is home without services. to provide transportation home. CM to follow for d/c needs,
--- NOTE | 2021-01-03 15:21 | P.PNIM_ITS ---
Subjective Subjective Date of Service: 01/03/21 Interval History: cc: chest pain interval history: no complaints, chest pain resolved. Cardiovascular Cardiovascular: Reports no additional cardiovascular complaints Respiratory Respiratory: Reports no additional respiratory complaints Physical Exam Vital Signs: Vital Signs: Last Vital Signs Temp 98.4 F 01/03/21 06:33 Pulse 76 01/03/21 14:16 Resp 18 01/03/21 14:16 BP 174/45 H 01/03/21 14:16 Pulse Ox 97 01/03/21 14:16 Oxygen Flow Rate 2 01/02/21 15:25 Body Mass Index 22.3 General: AO X 2, no acute distress Resp: CTA bilateral, no accessory muscles used CVS: S1,S2,RRR GI: soft, non tender, non distended Neuro: motor grossly intact, alert Psych: appropriate affect, impaired insight Objective Data Active Medications Acetaminophen (Acetaminophen 325 Mg Tablet) 650 mg PO Q6H PRN PRN Reason: Pain, Mild (Pain Scale 1-3) Amlodipine Besylate (Amlodipine Besylate 10 Mg Tablet) 10 mg PO BEDTIME [facility]; Protocol Ascorbic Acid (Ascorbic Acid 500 Mg Tablet) 1,000 mg PO DAILY [facility] Last Admin: 01/03/21 08:08 Dose: 1,000 mg Documented by: BERNA Clonazepam (Clonazepam 1 Mg Tablet) 1 mg PO BEDTIME [facility] Donepezil HCl (Donepezil Hcl 10 Mg Tablet) 10 mg PO BEDTIME [facility] Hydralazine HCl (Hydralazine Hcl 50 Mg Tablet) 100 mg PO TID [facility]; Protocol Last Admin: 01/03/21 08:09 Dose: 100 mg Documented by: BERNA Hydrochlorothiazide (Hydrochlorothiazide 12.5 Mg Tablet) 12.5 mg PO DAILY [facility]; Protocol Last Admin: 01/03/21 08:06 Dose: 12.5 mg Documented by: BERNA Ceftriaxone Sodium 1 gm/ (Sodium Chloride) 50 mls @ 100 mls/hr IV Q24H [facility] Labetalol HCl (Labetalol Hcl 100 Mg/20 Ml Vial) 10 mg IVPUSH Q4H PRN PRN Reason: BP>180/90 Lisinopril (Lisinopril 5 Mg Tablet) 5 mg PO DAILY [facility]; Protocol Last Admin: 01/03/21 08:08 Dose: 5 mg Documented by: BERNA Melatonin (Melatonin 3 Mg Tablet) 6 mg PO BEDTIME PRN PRN Reason: Insomnia Memantine (Memantine Hcl 10 Mg Tablet) 10 mg PO BEDTIME [facility] Multivitamins/Vitamin C (Multivitamin Tablet) 1 tab PO DAILY [facility] Last Admin: 01/03/21 08:08 Dose: 1 tab Documented by: BERNA Non-Formulary Medication (Evolocumab [Repatha Sureclick]) 140 mg SUBCUT Q2W [facility] Pantoprazole Sodium (Pantoprazole Sodium 40 Mg/10 Ml Vial) 40 mg IVPUSH DAILY@0630 [facility] Last Admin: 01/03/21 06:28 Dose: 40 mg Documented by: FINESSE Pharmacy Consult (Consult Rx Perform Med Rec) 1 each MISCELLANE ONCE PRN PRN Reason: Consult order Senna (Sennosides 8.6 Mg Tablet) 17.2 mg PO BEDTIME PRN PRN Reason: Constipation Sodium Chloride (0.9 % Sodium Chloride Flush 3 Ml Syringe) 3 ml IVFLUSH QSHIFT [facility] Last Admin: 01/03/21 08:06 Dose: 3 ml Documented by: BERNA Labs CBC & Chem 7: 01/03/21 03:25 01/03/21 03:25 Labs: Laboratory Results - last 24 hr 01/02/21 01/02/21 01/02/21 16:09 16:09 16:09 MCV 95.5 MCH 31.7 MCHC 33.2 RDW 13.8 Plt Count 162 MPV 9.8 Immature Gran % (Auto) 3.2 H Neut % (Auto) 91.8 H Lymph % (Auto) 4.3 L [place] % (Auto) 0.3 L Eos % (Auto) 0.3 Baso % (Auto) 0.1 Lymph # (Auto) 0.3 L [place] # (Auto) 0.0 L Eos # (Auto) 0.0 Baso # (Auto) 0.0 Abs Immat Gran (auto) 0.25 H Absolute Neuts (auto) 7.3 Absolute Nucleated RBC 0.020 H Nucleated RBC % (auto) 0.3 H Smear Tech's Comments VERIFIED PT INR Anion Gap 14 Estim Creat Clear Calc 21.5 Estimated GFR 27 Random Glucose 75 Lactic Acid Calcium 8.7 D Total Bilirubin 1.6 H Direct Bilirubin 0.7 H AST 45 H D ALT 20 Alkaline Phosphatase 109 D Troponin I High Sens 9.8 B-Natriuretic Peptide Total Protein 5.9 L Albumin 3.7 Urine Color Urine Appearance Urine pH Ur Specific [place] Urine Protein Urine Glucose (UA) Urine Ketones Urine Blood Urine Nitrite Ur Leukocyte Esterase Urine RBC Urine WBC Ur Squamous Epith Cells Talc Crystals Amorphous Sediment Urine Bacteria Urine Mucus Stool Occult Blood COVID-19 (GENIE) COVID-19 Clin Com 01/02/21 01/02/21 01/02/21 16:09 16:09 16:09 MCV MCH MCHC RDW Plt Count MPV Immature Gran % (Auto) Neut % (Auto) Lymph % (Auto) [place] % (Auto) Eos % (Auto) Baso % (Auto) Lymph # (Auto) [place] # (Auto) Eos # (Auto) Baso # (Auto) Abs Immat Gran (auto) Absolute Neuts (auto) Absolute Nucleated RBC Nucleated RBC % (auto) Smear Tech's Comments PT 12.1 INR 1.1 Anion Gap Estim Creat Clear Calc Estimated GFR Random Glucose Lactic Acid 1.2 Calcium Total Bilirubin Direct Bilirubin AST ALT Alkaline Phosphatase Troponin I High Sens B-Natriuretic Peptide 136 H Total Protein Albumin Urine Color Urine Appearance Urine pH Ur Specific [place] Urine Protein Urine Glucose (UA) Urine Ketones Urine Blood Urine Nitrite Ur Leukocyte Esterase Urine RBC Urine WBC Ur Squamous Epith Cells Talc Crystals Amorphous Sediment Urine Bacteria Urine Mucus Stool Occult Blood COVID-19 (GENIE) COVID-19 Clin Com 01/02/21 01/02/21 01/02/21 16:09 17:04 19:25 MCV MCH MCHC RDW Plt Count MPV Immature Gran % (Auto) Neut % (Auto) Lymph % (Auto) [place] % (Auto) Eos % (Auto) Baso % (Auto) Lymph # (Auto) [place] # (Auto) Eos # (Auto) Baso # (Auto) Abs Immat Gran (auto) Absolute Neuts (auto) Absolute Nucleated RBC Nucleated RBC % (auto) Smear Tech's Comments PT INR Anion Gap Estim Creat Clear Calc Estimated GFR Random Glucose Lactic Acid Calcium Total Bilirubin Direct Bilirubin AST ALT Alkaline Phosphatase Troponin I High Sens B-Natriuretic Peptide Total Protein Albumin Urine Color YELLOW Urine Appearance HAZY Urine pH 6.0 Ur Specific [place] 1.010 Urine Protein TRACE Urine Glucose (UA) NEG Urine Ketones NEG Urine Blood NEG Urine Nitrite NEG Ur Leukocyte Esterase TRACE H Urine RBC 0 Urine WBC 0-2 Ur Squamous Epith Cells 3+ Talc Crystals 1+ Amorphous Sediment 1+ Urine Bacteria 2+ Urine Mucus 3+ Stool Occult Blood POSITIVE COVID-19 (GENIE) Negative COVID-19 Clin Com See Note 01/03/21 01/03/21 01/03/21 03:25 03:25 03:25 MCV 92.0 MCH 32.5 MCHC 35.3 H RDW 13.7 Plt Count 102 L D MPV 9.6 Immature Gran % (Auto) 1.0 H Neut % (Auto) 89.5 H Lymph % (Auto) 7.0 L [place] % (Auto) 2.0 Eos % (Auto) 0.3 Baso % (Auto) 0.2 Lymph # (Auto) 1.1 L [place] # (Auto) 0.3 Eos # (Auto) 0.0 Baso # (Auto) 0.0 Abs Immat Gran (auto) 0.16 H Absolute Neuts (auto) 14.0 H Absolute Nucleated RBC 0.030 H Nucleated RBC % (auto) 0.2 Smear Tech's Comments PT INR Anion Gap 12 Estim Creat Clear Calc 26.1 Estimated GFR 34 Random Glucose 108 Lactic Acid Calcium 8.7 Total Bilirubin 0.9 Direct Bilirubin 0.4 AST 95 H ALT 21 Alkaline Phosphatase 79 D Troponin I High Sens 189.5 H* D B-Natriuretic Peptide Total Protein 6.1 L Albumin 3.6 Urine Color Urine Appearance Urine pH Ur Specific [place] Urine Protein Urine Glucose (UA) Urine Ketones Urine Blood Urine Nitrite Ur Leukocyte Esterase Urine RBC Urine WBC Ur Squamous Epith Cells Talc Crystals Amorphous Sediment Urine Bacteria Urine Mucus Stool Occult Blood COVID-19 (GENIE) COVID-19 Clin Com Microbiology Microbiology Results: Microbiology 01/02/21 Unknown Urine Culture - Preliminary Urine clean catch - Clean Catch Midstream Culture too young to evaluate. Assessment and Plan (1) Acute kidney injury: Status: Acute (2) Acute urinary retention: Status: Acute Assessment and Plan: 80-year-old female with a past medical history of hypertension, hyperlipidemia, CLL, peripheral vascular disease, pulmonary fibrosis, ulcerative colitis, dementia presented to the hospital via EMS with a chief complaint of chest pain, found to be febrile, hypertensive, positive troponins SIRS no clear infectious source at this time, continue rocephin, follow up cultures bacturia negative Leuk esterase, neg nitrites, neg WBC, doubt UTI MATILDE on CKD II-III resolved with relief of obstruction and hydration uyrinary retention 900cc PVR, continue peacock, eval NSTEMI, hypertensive emergency iv heparin, follow up echo, cardio labetolol, amldoipnie, hydralazine lisinopril and hctz on hold for matilde anemia no active bleed, dc protonix, monitor h and h closely while on heparin, check iron studies, continue asa gi following History of dementia Continue donepezil, memantine DVT prophylaxis:? heparin Code status:? Full code Quality Stroke Does the patient have a stroke diagnosis?: No VTE Prior VTE?: No VTE Risk Level:: Medical - moderate - high VTE Device Contraindication: Treatment Not Indicated VTE Drug Contraindication: N/A - Med Ordered
--- NOTE | 2021-01-03 20:07 | PC.NURSE ---
Hospitalist contacted in regards to heparin that was mentioned in Dr. Parkinson's note but never ordered to be manage NSTEMI. Dr. Wise requesting STAT trop to be drawn at this time. Trop to be obtained and sent to lab. This RN will attempt to give report to receiving [facility] [place].
--- NOTE | 2021-01-03 20:19 | PC.NURSE ---
STAT trop drawn and sent to lab. PT VSS. PT resting comfortably in bed with no complaints of CP or SOB. PT is waiting to be transferred to [facility] [place].
--- NOTE | 2021-01-03 20:43 | P.CNGI_ITS ---
History of Present Illness Data of Consult Service Date: 01/03/21 Requesting physician: Danny Durand Primary Care Provider: Walter Braun MD HPI Reason for consult: anemia 80-year-old female with a past medical history of hypertension, hyperlipidemia, CLL, peripheral vascular disease, pulmonary fibrosis, ulcerative colitis, dementia who I am seeing for assessment for anemia. Patient has no recollection of hy she is in hospital and says she feels well w/o any complaints. Per chart she actually came with general malaise and chest and back pain, found to have raised trop and commenced on heparin and medication for ACS> currently denies these, or abdominal pain. no nausea or vomiting. As part of work up noted to have slightly worse anemia than background--10.9--8.5 g/dl, as well as urine retention and HTN of note last colonoscopy 2013 with babar, no colitis noted macro or microscopically, was noted in 2006 Review of Systems Review of Systems: Yes all other systems are reviewed and are negative Cardiovascular: Cardiovascular: Reports no additional cardiovascular complaints Respiratory: Respiratory: Reports no additional respiratory complaints [facility] Past Medical History Medical History Anemia CLL (chronic lymphocytic leukemia) Coronary artery calcification seen on CAT scan Dementia Essential hypertension Hip dislocation, left Hyperlipidemia Other and unspecified hyperlipidemia Peripheral artery disease Peripheral vascular disease Pulmonary fibrosis Ulcerative colitis Vertigo Family History Family History Father No problems noted. Mother No problems noted. Pertinent family history: As above Surgical History Surgical History H/O carotid endarterectomy History of hip replacement History of liver biopsy S/P popliteal-distal bypass Status post carotid endarterectomy Social History Social History Alcohol intake: never Patient Tobacco Use Status: Current someday Tobacco user Cigarettes Per Day: 3 Use of substances other than those prescribed or required for medical reasons: No Advance Directives: No Advance Directives Information Provided: Yes service: No Current occupational status: retired 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 Meds Allergies Allergy/AdvReac Type Severity Reaction Status Date / Time diazepam [DIAZEPAM] Allergy Severe RASH Verified 10/10/20 11:11 Ioqirju-MSQ-UhL Reductase Allergy Unknown UNKNOWN Verified 10/10/20 11:11 Inhibitor [[id number] REDUCTASE INHIBITOR] Active Medications: Current Medications Acetaminophen (Acetaminophen 325 Mg Tablet) 650 mg PO Q6H PRN PRN Reason: Pain, Mild (Pain Scale 1-3) Amlodipine Besylate (Amlodipine Besylate 10 Mg Tablet) 10 mg PO BEDTIME [facility]; Protocol Ascorbic Acid (Ascorbic Acid 500 Mg Tablet) 1,000 mg PO DAILY [facility] Last Admin: 01/03/21 08:08 Dose: 1,000 mg Documented by: Aspirin (Aspirin Enteric Coated 81 Mg Tablet.) 81 mg PO DAILY [facility] Clonazepam (Clonazepam 1 Mg Tablet) 1 mg PO BEDTIME [facility] Donepezil HCl (Donepezil Hcl 10 Mg Tablet) 10 mg PO BEDTIME [facility] Hydralazine HCl (Hydralazine Hcl 50 Mg Tablet) 100 mg PO TID [facility]; Protocol Last Admin: 01/03/21 16:49 Dose: 100 mg Documented by: Hydrochlorothiazide (Hydrochlorothiazide 12.5 Mg Tablet) 12.5 mg PO DAILY [facility]; Protocol Last Admin: 01/03/21 08:06 Dose: 12.5 mg Documented by: Ceftriaxone Sodium 1 gm/ (Sodium Chloride) 50 mls @ 100 mls/hr IV Q24H [facility] Labetalol HCl (Labetalol Hcl 100 Mg/20 Ml Vial) 10 mg IVPUSH Q4H PRN PRN Reason: BP>180/90 Lisinopril (Lisinopril 5 Mg Tablet) 5 mg PO DAILY [facility]; Protocol Last Admin: 01/03/21 08:08 Dose: 5 mg Documented by: Melatonin (Melatonin 3 Mg Tablet) 6 mg PO BEDTIME PRN PRN Reason: Insomnia Memantine (Memantine Hcl 10 Mg Tablet) 10 mg PO BEDTIME [facility] Multivitamins/Vitamin C (Multivitamin Tablet) 1 tab PO DAILY [facility] Last Admin: 01/03/21 08:08 Dose: 1 tab Documented by: Non-Formulary Medication (Evolocumab [Repatha Sureclick]) 140 mg SUBCUT Q2W [facility] Pharmacy Consult (Consult Rx Perform Med Rec) 1 each MISCELLANE ONCE PRN PRN Reason: Consult order Senna (Sennosides 8.6 Mg Tablet) 17.2 mg PO BEDTIME PRN PRN Reason: Constipation Sodium Chloride (0.9 % Sodium Chloride Flush 3 Ml Syringe) [facility] Last Admin: 01/03/21 17:23 Dose: 3 ml Documented by: Home Medications Medication Instructions Recorded Confirmed Last Taken Type ascorbic acid (vitamin C) 1,000 mg 1 g PO DAILY tab 03/09/20 01/02/21 01/02/21 History tablet aspirin 81 mg tablet,delayed 81 mg PO BEDTIME 03/09/20 01/02/21 01/01/21 History release calcitonin (salmon) 200 See Rx Instructions .ROUTE .COMPLEX 03/09/20 01/02/21 01/02/21 History unit/actuation nasal spray cholecalciferol (vitamin D3) 250 250 mcg PO DAILY 03/09/20 01/02/21 01/02/21 History mcg (10,000 unit) capsule clonazepam 0.5 mg tablet 1 mg PO BEDTIME 03/09/20 01/02/21 01/01/21 History donepezil 10 mg tablet 10 mg PO BEDTIME 03/09/20 01/02/21 01/01/21 History memantine 10 mg tablet 10 mg PO BEDTIME 03/09/20 01/02/21 01/01/21 History xnctupww-miu-hurkg acid 0.4 1 tab PO DAILY 03/09/20 01/02/21 01/02/21 History mg-lycopene 300 mcg-lutein 250 mcg tablet (Centrum Silver) hydrochlorothiazide 12.5 mg capsule 12.5 mg PO QAM 10/02/20 01/02/21 01/02/21 History amlodipine 10 mg tablet 10 mg PO BEDTIME 01/02/21 01/02/21 01/01/21 History lisinopril 5 mg tablet 1 tab PO DAILY 01/02/21 01/02/21 01/02/21 History Physical Exam Vital Signs: Vital Signs: Last Vital Signs Temp 97.7 F 01/03/21 19:17 Pulse 74 01/03/21 19:17 Resp 15 01/03/21 19:17 BP 155/55 H 01/03/21 19:17 Pulse Ox 98 01/03/21 19:17 Oxygen Flow Rate 2 01/02/21 15:25 Body Mass Index 22.3 EXAM: GENERAL: The patient is well developed and nontoxic. VITAL SIGNS:see workflow HEENT: Nonicteric sclerae, PERRLA, EOMI. Oropharynx clear. Moist mucous m embranes. Conjunctivae appear well perfused. No thyroid mass. CHEST: Chest wall is nontender. HEART: Regular rate and rhythm without murmurs. LUNGS: Clear to auscultation bilaterally. ABDOMEN: Soft, positive bowel sounds, nontender, no organomegaly.no flank tenderness SKIN: No rash, no excessive bruising, petechiae, or purpura. NEUROLOGIC: Cranial nerves II-XII intact without motor/sensory deficit. Psych-- poor memory and recall Const: Other: Appearance: Alert. Oriented X3. No acute distress. Eyes: Pupils equal, round and reactive to light. ENT: Pharynx normal. Neck: Normal inspection. Neck supple. No lymph nodes noted. No crepitus CVS: Normal heart rate and rhythm. Pulses normal. Normal S1 and S2 Respiratory: No respiratory distress. Breath sounds normal. Occasionally coughing phlegm Abdomen: Soft and nontender. No rigidity. No distention. Skin: Warm to touch, Normal skin color. Normal skin turgor. Extremities: No lower extremity edema. No Lacerations. No Rash Neuro: Oriented X 3. No motor deficit. No sensory deficit. Moving all extermities. No slurred speech. General: cooperative Results Labs CBC & Chem 7: 01/03/21 03:25 01/03/21 03:25 Labs: Short CBC 01/03/21 Range/Units 03:25 WBC 15.7 H (4.8-10.8) X10*3/uL Hgb 8.9 L (12.0-16.0) g/dl Hct 25.2 L (37.0-47.0) % Plt Count 102 L D (160-400) X10*3/uL BMP 01/03/21 03:25 Sodium 140 Potassium 4.2 Chloride 109 H Carbon Dioxide 23 BUN 53 H Creatinine 1.48 H Calcium 8.7 Liver Function 01/03/21 Range/Units 03:25 Total Bilirubin 0.9 (0.0-1.0) mg/dL Direct Bilirubin 0.4 (0.0-0.5) mg/dL AST 95 H (5-31) U/L ALT 21 (0-31) U/L Alkaline Phosphatase 79 D (39-117) U/L Albumin 3.6 (3.5-5.0) g/dL Microbiology Microbiology Results: Microbiology 01/02/21 17:04 Blood - Venous Blood Culture - Preliminary No growth after 24 hours. 01/02/21 16:09 Blood - Venous Blood Culture - Preliminary No growth after 24 hours. 01/02/21 Unknown Urine clean catch - Clean Catch Midstream Urine Culture - Preliminary Culture too young to evaluate. Assessment and Plan (1) Anemia: Status: Acute 1/ appears to have had NSTEMI, possibly from urine retention causing HTN and cardiac stress. She is clinically stable. 2/ Anemia is stable, no overt GI bleeding thus far, now on heparin so cont to monitor. It maybe multifactorial for ACD, and CLL and poor bone marrow response, CKD PLAN: 1/ can use low dose PPI in case of mucosal bleeding, 2/ would hold on endoscopy for the moment, unless she has overt GIB 3/ cont with heparin as doing 4/ check iron stuides, b12 and folic acid and replenish if low Procedures Date of Service Date of Service: 01/03/21
[2021-01-03 20:52] LABS: Troponin-I High Sensitivity 863.4 ng/L (<3.5-17.0)
[2021-01-03] MEDS: Memantine HCl 10 MG TABLET PO (20:53)
[2021-01-03] MEDS: clonazePAM 1 MG TABLET PO (20:53)
[2021-01-03] MEDS: cefTRIAXone sodium 1 GM in 0.9 % Sodium Chloride 50 ML IV (20:53)
[2021-01-03] MEDS: Donepezil HCl 10 MG TABLET PO (20:54)
[2021-01-03] MEDS: amLODIPine Besylate 10 MG TABLET PO (20:54)
--- NOTE | 2021-01-03 20:58 | ECG_ITS ---
Test Reason : troponin Blood Pressure : / mmHG Vent. Rate : 071 BPM Atrial Rate : 071 BPM P-R Int : 164 ms QRS Dur : 074 ms QT Int : 412 ms P-R-T Axes : -14 047 083 degrees QTc Int : 447 ms Sinus rhythm with Premature atrial complexes RSR' or QR pattern in V1 suggests right ventricular conduction delay Nonspecific ST and T wave abnormality Anterolateral leads Abnormal ECG When compared with ECG of 02-JAN-2021 16:22, T wave inversion more evident in Anterior leads Referred By: Generic ED Physician Electronically Signed By:AYDEN BUCIO MD
[2021-01-03 22:00] LABS: Hematocrit 25.8 % (37.0-47.0); Hemoglobin 8.8 g/dl (12.0-16.0); Mean Corpuscular HGB Conc 34.1 g/dl (31.0-35.0); Mean Corpuscular Hemoglobin 31.7 pg (27.0-33.0); Mean Corpuscular Volume 92.8 fL (80.0-98.0); Mean Platelet Volume 10.1 fL (9.4-12.3); Red Blood Count 2.78 X10*6/uL (4.20-5.50); Red Cell Distribution Width 13.7 % (11.0-16.0); White Blood Count 11.7 X10*3/uL (4.8-10.8)
--- NOTE | 2021-01-03 22:01 | PC.NURSE ---
Addendum entered by Karlo Cadena 01/03/21 22:02: Labs drawn and sent to lab. Heparin to be administered pending results of PT, PTT, and INR. Original Note: Labs drawn and sent to lab. Heparin to be administered pending results of PT and INR.
--- NOTE | 2021-01-03 22:16 | PC.NURSE ---
Lab called to request that labs be redrawn. Report given to [facility]. Maribeth TORRES is aware that labs need to be redrawn and resulted prior to administering heparin. PT to be transferred to [facility] on tele monitor. This RN will call phlebotomy to request labs be redrawn on [facility].
[2021-01-03 22:30] LABS: Platelet Count 92 X10*3/uL (160-400)
--- NOTE | 2021-01-03 22:33 | PC.NURSE ---
Ariel TORRES attempted to recollect pt's labs including PTT, Ariel was unsuccessful. Ariel notified phlebotomy at this time that pt has been transferred to 4th floor and continues to need recollect of labs. Phleb to collect labs from pt on 4th floor.
[2021-01-03] MEDS: Heparin Sodium,Porcine/1/2NS 25,000 UNIT/250 ML IV.SOLN 8.26 UNIT IVCONT (22:58)
[2021-01-03 23:00] LABS: Prothrombin Time 11.7 SEC (9.9-13.0)
[2021-01-03] MEDS: Heparin Sodium,Porcine 5,000 UNIT/ML VIAL 4700 UNIT IVPUSH (23:00)
--- NOTE | 2021-01-03 23:01 | PM.EVENT ---
Event Note Date of Service: 01/15/21 Event Note: NSTEMI: Patient has follow-up troponin werened from 189 to 864; pt has Guiaiac positive stool; Hgb Stable. no signs of active bleeding. Notified Cardiology Dr Kerr, agreed for heparin drip. Echo will monitor serial h&H. pt denied chest pain; f/u EKG- non ischemic.
[2021-01-03 23:03] LABS: PTT Heparin Drip 29.7 SEC (53-77.9)
[2021-01-03 23:26] LABS: PLT CLUMP 1; SCAN SMEAR FLAG 1
[2021-01-03 23:28] LABS: Basophils Percent Auto 0.3 % (0-2); Eosinophils Absolute Auto 0.3 X10*3/uL (0.0-0.4); Eosinophils Percent Auto 2.6 % (0-4); Hematocrit 25.8 % (37.0-47.0); Hemoglobin 8.6 g/dl (12.0-16.0); Imm Gran Abs Auto 0.07 X10*3/uL (0.00-0.03); Imm Gran Pct Auto 0.6 % (0.0-0.4); Lymphocytes Absolute Auto 1.6 X10*3/uL (1.2-4.9); Lymphocytes Percent Auto 13.6 % (20-40); Mean Corpuscular HGB Conc 33.3 g/dl (31.0-35.0); Mean Corpuscular Hemoglobin 31.3 pg (27.0-33.0); Mean Corpuscular Volume 93.8 fL (80.0-98.0); Mean Platelet Volume 10.4 fL (9.4-12.3); Monocytes Absolute Auto 0.6 X10*3/uL (0.1-1.2); Monocytes Percent Auto 5.3 % (2-11); Neutrophils Absolute Auto 9.1 x10*3/uL (2.0-8.3); Neutrophils Percent Auto 77.6 % (45-73); Platelet Count 101 X10*3/uL (160-400); Red Blood Count 2.75 X10*6/uL (4.20-5.50); Red Cell Distribution Width 13.8 % (11.0-16.0); White Blood Count 11.7 X10*3/uL (4.8-10.8)
[2021-01-03 23:29] LABS: MANUAL DIFF FLAG NO
[2021-01-04] VITALS: BMI 21.9
[2021-01-04] MEDS: 0.9 % Sodium Chloride Flush 3 ML SYRINGE IVFLUSH ×2 (00:29→15:13)
[2021-01-04 03:11] LABS: MANUAL DIFF FLAG NO
[2021-01-04 03:13] LABS: Basophils Absolute Auto 0.1 X10*3/uL (0.0-0.2); Basophils Percent Auto 0.5 % (0-2); Eosinophils Absolute Auto 0.4 X10*3/uL (0.0-0.4); Eosinophils Percent Auto 3.6 % (0-4); Hematocrit 25.6 % (37.0-47.0); Hemoglobin 8.4 g/dl (12.0-16.0); Imm Gran Abs Auto 0.07 X10*3/uL (0.00-0.03); Imm Gran Pct Auto 0.6 % (0.0-0.4); Lymphocytes Absolute Auto 2.6 X10*3/uL (1.2-4.9); Lymphocytes Percent Auto 21.1 % (20-40); Mean Corpuscular HGB Conc 32.8 g/dl (31.0-35.0); Mean Corpuscular Hemoglobin 30.9 pg (27.0-33.0); Mean Corpuscular Volume 94.1 fL (80.0-98.0); Mean Platelet Volume 9.6 fL (9.4-12.3); Monocytes Absolute Auto 0.6 X10*3/uL (0.1-1.2); Monocytes Percent Auto 5.1 % (2-11); Neutrophils Absolute Auto 8.4 x10*3/uL (2.0-8.3); Neutrophils Percent Auto 69.1 % (45-73); Platelet Count 79 X10*3/uL (160-400); Red Blood Count 2.72 X10*6/uL (4.20-5.50); Red Cell Distribution Width 13.9 % (11.0-16.0); White Blood Count 12.2 X10*3/uL (4.8-10.8)
[2021-01-04 04:00] VITALS: BP 127/57; PULSE 70; RESP 18; TEMP 36.3; O2SAT 95
[2021-01-04 04:59] LABS: Hemoglobin 8.4 g/dl (12.0-16.0); Mean Corpuscular HGB Conc 33.6 g/dl (31.0-35.0); Mean Corpuscular Hemoglobin 31.6 pg (27.0-33.0); Mean Platelet Volume 9.9 fL (9.4-12.3); Red Blood Count 2.66 X10*6/uL (4.20-5.50); Red Cell Distribution Width 13.9 % (11.0-16.0); White Blood Count 11.7 X10*3/uL (4.8-10.8)
[2021-01-04 05:05] LABS: Platelet Count 79 X10*3/uL (160-400)
[2021-01-04 05:07] LABS: Prothrombin Time 11.9 SEC (9.9-13.0)
[2021-01-04 05:24] LABS: Alanine Aminotransferase 21 U/L (0-31); Albumin Level 3.2 g/dL (3.5-5.0); Alkaline Phosphatase 72 U/L (39-117); Anion Gap 14 (12-20); Aspartate Amino Transferase 40 U/L (5-31); Bilirubin Direct 0.2 mg/dL (0.0-0.5); Bilirubin Total 0.3 mg/dL (0.0-1.0); Blood Urea Nitrogen 56 mg/dL (9-16); Calcium 8.4 mg/dL (8.4-10.2); Carbon Dioxide 20 mmol/L (22-29); Chloride 108 mmol/L (96-108); Creatinine Clr Calc Pharmacy 25.9; Estimated Glomerular Filt Rate 34; Glucose Fasting 98 mg/dL (60-99); Iron 21 mcg/dL (30-160); Magnesium 1.8 mg/dL (1.6-2.6); Percent Iron Saturation 8 % (15-50); Potassium 3.6 mmol/L (3.3-5.1); Sodium 138 mmol/L (135-145); Total Iron Binding Capacity 266 mcg/dL (228-428); Total Protein 5.4 g/dL (6.5-8.0); Unsaturated Iron Binding 245 ug/dL
[2021-01-04 05:49] LABS: PTT Heparin Drip 128.9 SEC (53-77.9)
[2021-01-04 07:46] LABS: PTT Heparin Drip 58.1 SEC (53-77.9)
[2021-01-04 08:00] VITALS: BP 129/63; PULSE 64; RESP 17; TEMP 36.8; O2SAT 97
[2021-01-04 09:22] VITALS: BP 129/63; PULSE 64
[2021-01-04] MEDS: hydrALAZINE HCl 50 MG TABLET 100 MG PO ×3 (09:22→20:29)
[2021-01-04] MEDS: Sodium Ferric Gluconat/Sucrose 125 MG in 0.9 % Sodium Chloride 100 ML 100 MG IV (09:22)
[2021-01-04] MEDS: Multivitamin TABLET 1 TAB PO (09:22)
[2021-01-04] MEDS: Aspirin Enteric Coated 81 MG TABLET.DR PO (09:22)
[2021-01-04] MEDS: hydroCHLOROthiazide 12.5 MG TABLET PO (09:22)
[2021-01-04] MEDS: Ascorbic Acid 500 MG TABLET 1000 MG PO (09:22)
--- NOTE | 2021-01-04 10:22 | PM.CNCAR ---
History of Present Illness History of Present Illness Date of Service: 01/04/21 Chief complaint: UTI Narrative: This is a cardiology consultation for NSTEMI. Patient is well known to us. Last cardiology appointment was in September this year. She has a history of hypertension, hyperlipidemia as well as smoking. History of carotid disease and she underwent a carotid endarterectomy on the left side in 2014. She also had lower extremity peripheral vascular disease. Known coronary disease based on on gated chest CT in the past. Also some degree of dementia at baseline as she does not recall a lot of information. Today when a question as to why she is here she does not know. She denies any chest pain or any cardiac symptoms at all. Based on age and P, it seems that there was initial concern for chest and back pain for which she apparently did receive sublingual nitroglycerin aspirin and at the same time her pressure was apparently very high at 1 40/120 mm Hg. In this setting, there was elevated troponin finding which led to a diagnosis of NSTEMI. However at this time patient does not know why she is here not she had any cardiac symptoms. Otherwise, she has also been diagnosed to have UTI and treated for that as well. Review of Systems Review of Systems: Yes all other systems are reviewed and are negative Cardiovascular: Cardiovascular: Reports as per HPI, Reports no additional cardiovascular complaints, Denies acrocyanosis, Denies cool extremities, Denies painful fingertips, Denies chest pain, Denies chest pain at rest, Denies diaphoresis, Denies syncope, Denies irregular heart rhythm, Denies claudication, Denies leg edema, Denies lightheadedness, Denies palpitations and Denies dyspnea Respiratory: Respiratory: Denies dyspnea Neurologic: Denies syncope Endocrine: Endocrine: Denies palpitations [facility] Past Medical History Medical History Anemia CLL (chronic lymphocytic leukemia) Coronary artery calcification seen on CAT scan Dementia Essential hypertension Hip dislocation, left Hyperlipidemia Other and unspecified hyperlipidemia Peripheral artery disease Peripheral vascular disease Pulmonary fibrosis Ulcerative colitis Vertigo Family History Family History Father No problems noted. Mother No problems noted. Surgical History Surgical History H/O carotid endarterectomy History of hip replacement History of liver biopsy S/P popliteal-distal bypass Status post carotid endarterectomy Social History Social History Household Members: Spouse Housing: House Do you presently have visiting nurse or other home services: No Unable to assess alcohol history related to: Unknown Alcohol intake: never Patient Tobacco Use Status: Current someday Tobacco user Tobacco use type: Cigarette Cigarettes Per Day: 3 e-Cigarette/Vaping Use: Currently Using Second Hand Smoke Exposure: No Advance Directives Date on File: 05/06/20 service: No Current occupational status: retired 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 Meds Allergies Allergy/AdvReac Type Severity Reaction Status Date / Time diazepam [DIAZEPAM] Allergy Severe RASH Verified 10/10/20 11:11 Tlytgqb-FEV-LmP Reductase Allergy Unknown UNKNOWN Verified 10/10/20 11:11 Inhibitor [ETFUFTJ-SEG-DYO REDUCTASE INHIBITOR] Active Medications: Current Medications Acetaminophen (Acetaminophen 325 Mg Tablet) 650 mg PO Q6H PRN PRN Reason: Pain, Mild (Pain Scale 1-3) Amlodipine Besylate (Amlodipine Besylate 10 Mg Tablet) 10 mg PO BEDTIME [facility]; Protocol Last Admin: 01/03/21 20:54 Dose: 10 mg Documented by: Ascorbic Acid (Ascorbic Acid 500 Mg Tablet) 1,000 mg PO DAILY [facility] Last Admin: 01/04/21 09:22 Dose: 1,000 mg Documented by: Aspirin (Aspirin Enteric Coated 81 Mg Tablet.) 81 mg PO DAILY [facility] Last Admin: 01/04/21 09:22 Dose: 81 mg Documented by: Clonazepam (Clonazepam 1 Mg Tablet) 1 mg PO BEDTIME [facility] Last Admin: 01/03/21 20:53 Dose: 1 mg Documented by: Donepezil HCl (Donepezil Hcl 10 Mg Tablet) 10 mg PO BEDTIME [facility] Last Admin: 01/03/21 20:54 Dose: 10 mg Documented by: Heparin Sodium (Porcine) (Heparin Sodium,Porcine 5,000 Unit/Ml Vial) 2,400 unit 40 unit/kg (2400 unit) IVPUSH PROTOCOL [facility]OLUS PRN; Protocol PRN Reason: 40 unit/kg - Heparin Protocol Heparin Sodium (Porcine) (Heparin Sodium,Porcine 5,000 Unit/Ml Vial) 4,700 unit 80 unit/kg (4700 unit) IVPUSH PROTOCOL BOLUS PRN; Protocol PRN Reason: 80 unit/kg - Heparin Protocol Hydralazine HCl (Hydralazine Hcl 50 Mg Tablet) 100 mg PO TID [facility]; Protocol Last Admin: 01/04/21 09:22 Dose: 100 mg Documented by: Hydrochlorothiazide (Hydrochlorothiazide 12.5 Mg Tablet) 12.5 mg PO DAILY [facility]; Protocol Last Admin: 01/04/21 09:22 Dose: 12.5 mg Documented by: Ceftriaxone Sodium 1 gm/ (Sodium Chloride) 50 mls @ 100 mls/hr IV Q24H [facility] Last Infusion: 01/03/21 22:25 Dose: Infused Documented by: Heparin Sodium/Sodium Chloride () 25,000 unit in 250 mls @ 0 mls/hr IVCONT .Q0M [facility]; Protocol Last Titration: 01/04/21 07:55 Dose: 10 units/kg/hr, 5.9 mls/hr Documented by: Ferric Sodium Gluconate Complex 125 mg/ Sodium Chloride 110 mls @ 100 mls/hr IV DAILY [facility] Stop: 01/06/21 10:05 Last Admin: 01/04/21 09:22 Dose: 100 mls/hr Documented by: Labetalol HCl (Labetalol Hcl 100 Mg/20 Ml Vial) 10 mg IVPUSH Q4H PRN PRN Reason: BP>180/90 Lisinopril (Lisinopril 5 Mg Tablet) 5 mg PO DAILY [facility]; Protocol Last Admin: 01/03/21 08:08 Dose: 5 mg Documented by: Melatonin (Melatonin 3 Mg Tablet) 6 mg PO BEDTIME PRN PRN Reason: Insomnia Memantine (Memantine Hcl 10 Mg Tablet) 10 mg PO BEDTIME [facility] Last Admin: 01/03/21 20:53 Dose: 10 mg Documented by: Multivitamins/Vitamin C (Multivitamin Tablet) 1 tab PO DAILY [facility] Last Admin: 01/04/21 09:22 Dose: 1 tab Documented by: Non-Formulary Medication (Evolocumab [Repatha Sureclick]) 140 mg SUBCUT Q2W [facility] Pharmacy Consult (Consult Rx Perform Med Rec) 1 each MISCELLANE ONCE PRN PRN Reason: Consult order Senna (Sennosides 8.6 Mg Tablet) 17.2 mg PO BEDTIME PRN PRN Reason: Constipation Sodium Chloride (0.9 % Sodium Chloride Flush 3 Ml Syringe) 3 ml IVFLUSH QSHIFT [facility] Last Admin: 01/04/21 09:07 Dose: Not Given Documented by: Home Medications Medication Instructions Recorded Confirmed Last Taken Type ascorbic acid (vitamin C) 1,000 mg 1 g PO DAILY tab 03/09/20 01/02/21 01/02/21 History tablet aspirin 81 mg tablet,delayed 81 mg PO BEDTIME 03/09/20 01/02/21 01/01/21 History release calcitonin (salmon) 200 See Rx Instructions .ROUTE .COMPLEX 03/09/20 01/02/21 01/02/21 History unit/actuation nasal spray cholecalciferol (vitamin D3) 250 250 mcg PO DAILY 03/09/20 01/02/21 01/02/21 History mcg (10,000 unit) capsule clonazepam 0.5 mg tablet 1 mg PO BEDTIME 03/09/20 01/02/21 01/01/21 History donepezil 10 mg tablet 10 mg PO BEDTIME 03/09/20 01/02/21 01/01/21 History memantine 10 mg tablet 10 mg PO BEDTIME 03/09/20 01/02/21 01/01/21 History ozlfgrxr-omq-vmoqy acid 0.4 1 tab PO DAILY 03/09/20 01/02/21 01/02/21 History mg-lycopene 300 mcg-lutein 250 mcg tablet (Centrum Silver) hydrochlorothiazide 12.5 mg capsule 12.5 mg PO QAM 10/02/20 01/02/21 01/02/21 History amlodipine 10 mg tablet 10 mg PO BEDTIME 01/02/21 01/02/21 01/01/21 History lisinopril 5 mg tablet 1 tab PO DAILY 01/02/21 01/02/21 01/02/21 History Physical Exam Vital Signs: Vital Signs: Last Vital Signs Temp 98.2 F 01/04/21 08:00 Pulse 64 01/04/21 09:22 Resp 17 01/04/21 08:00 BP 129/63 01/04/21 09:22 Pulse Ox 97 01/04/21 08:00 Oxygen Flow Rate 2 01/02/21 15:25 Body Mass Index 21.9 Const: General: cooperative and no acute distress HENMT: Other: Unremarkable Neck: Neck: Yes normal visual inspection Chest: Chest palpation & inspection: normal inspection of the chest Resp: Auscultation: clear to auscultation bilaterally, no crackles and no wheezes Cardio: Jugular venous distension: no JVD Palpation: normal PMI Heart sounds: S1 normal heart sound present, S2 normal heart sound present, no gallops, no murmurs and no rubs GI: Palpation (GI): Soft to palpation Back/Spine/Pelvis: Other: unremarkable Skin: General skin exam: no rashes or lesions noted Neuro: Cranial nerves: Yes Other cranial nerve findings present Extrem: General: Yes pedal edema (trace-1+ edema) Psych: Mental Status: other Results Labs and Meds Result diagrams: 01/04/21 04:53 01/04/21 04:53 Lab results: Laboratory Results - last 24 hr 01/03/21 01/03/21 01/03/21 03:25 03:25 20:15 WBC RBC Hgb Hct MCV MCH MCHC RDW Plt Count MPV Immature Gran % (Auto) Neut % (Auto) Lymph % (Auto) [place] % (Auto) Eos % (Auto) Baso % (Auto) Lymph # (Auto) [place] # (Auto) Eos # (Auto) Baso # (Auto) Abs Immat Gran (auto) Absolute Neuts (auto) Absolute Nucleated RBC Nucleated RBC % (auto) PT INR PTT (Heparin Protocol) Sodium Potassium Chloride Carbon Dioxide Anion Gap BUN Creatinine Estim Creat Clear Calc Estimated GFR Fasting Glucose Calcium Magnesium Iron TIBC % Saturation Unsat Iron Binding Total Bilirubin 0.9 Direct Bilirubin 0.4 AST 95 H ALT 21 Alkaline Phosphatase 79 D Troponin I High Sens 189.5 H* D 863.4 H* D Total Protein 6.1 L Albumin 3.6 01/03/21 01/03/21 01/03/21 21:49 22:45 22:45 WBC 11.7 H 11.7 H RBC 2.78 L 2.75 L Hgb 8.8 L 8.6 L Hct 25.8 L 25.8 L MCV 92.8 93.8 MCH 31.7 31.3 MCHC 34.1 33.3 RDW 13.7 13.8 Plt Count 92 L 101 L MPV 10.1 10.4 Immature Gran % (Auto) 0.6 H Neut % (Auto) 77.6 H Lymph % (Auto) 13.6 L [place] % (Auto) 5.3 Eos % (Auto) 2.6 Baso % (Auto) 0.3 Lymph # (Auto) 1.6 [place] # (Auto) 0.6 Eos # (Auto) 0.3 Baso # (Auto) 0.0 Abs Immat Gran (auto) 0.07 H Absolute Neuts (auto) 9.1 H Absolute Nucleated RBC 0.000 0.000 Nucleated RBC % (auto) 0.0 0.0 PT 11.7 INR 1.0 PTT (Heparin Protocol) 29.7 L Sodium Potassium Chloride Carbon Dioxide Anion Gap BUN Creatinine Estim Creat Clear Calc Estimated GFR Fasting Glucose Calcium Magnesium Iron TIBC % Saturation Unsat Iron Binding Total Bilirubin Direct Bilirubin AST ALT Alkaline Phosphatase Troponin I High Sens Total Protein Albumin 01/04/21 01/04/21 01/04/21 03:01 04:53 04:53 WBC 12.2 H 11.7 H RBC 2.72 L 2.66 L Hgb 8.4 L 8.4 L Hct 25.6 L 25.0 L MCV 94.1 94.0 MCH 30.9 31.6 MCHC 32.8 33.6 RDW 13.9 13.9 Plt Count 79 L 79 L MPV 9.6 9.9 Immature Gran % (Auto) 0.6 H Neut % (Auto) 69.1 Lymph % (Auto) 21.1 [place] % (Auto) 5.1 Eos % (Auto) 3.6 Baso % (Auto) 0.5 Lymph # (Auto) 2.6 [place] # (Auto) 0.6 Eos # (Auto) 0.4 Baso # (Auto) 0.1 Abs Immat Gran (auto) 0.07 H Absolute Neuts (auto) 8.4 H Absolute Nucleated RBC 0.000 0.000 Nucleated RBC % (auto) 0.0 0.0 PT INR PTT (Heparin Protocol) Sodium 138 Potassium 3.6 Chloride 108 Carbon Dioxide 20 L Anion Gap 14 BUN 56 H Creatinine 1.49 H Estim Creat Clear Calc 25.9 Estimated GFR 34 Fasting Glucose 98 Calcium 8.4 Magnesium 1.8 Iron 21 L TIBC 266 % Saturation 8 L Unsat Iron Binding 245 Total Bilirubin 0.3 Direct Bilirubin 0.2 AST 40 H D ALT 21 Alkaline Phosphatase 72 Troponin I High Sens Total Protein 5.4 L Albumin 3.2 L 01/04/21 01/04/21 01/04/21 04:53 04:53 06:53 WBC RBC Hgb Hct MCV MCH MCHC RDW Plt Count MPV Immature Gran % (Auto) Neut % (Auto) Lymph % (Auto) [place] % (Auto) Eos % (Auto) Baso % (Auto) Lymph # (Auto) [place] # (Auto) Eos # (Auto) Baso # (Auto) Abs Immat Gran (auto) Absolute Neuts (auto) Absolute Nucleated RBC Nucleated RBC % (auto) PT 11.9 INR 1.0 PTT (Heparin Protocol) 128.9 H* D 58.1 D Sodium Potassium Chloride Carbon Dioxide Anion Gap BUN Creatinine Estim Creat Clear Calc Estimated GFR Fasting Glucose Calcium Magnesium Iron TIBC % Saturation Unsat Iron Binding Total Bilirubin Direct Bilirubin AST ALT Alkaline Phosphatase Troponin I High Sens 398.0 H* D Total Protein Albumin ECG Interpretation: EKG with sinus rhythm at 71/minute with premature atrial contractions and nonspecific ST-T changes-these are most prominent in the anterior leads. Imaging Radiologist's impression: Impressions Abdomen Ultrasound 01/03/21 10:38 IMPRESSION: * No acute sonographic findings. No evidence of cholelithiasis, cholecystitis or biliary tract obstruction. * The liver is sonographically normal. Assessment and Plan (1) NSTEMI (non-ST elevated myocardial infarction): Status: Acute (2) Hypertensive emergency: Status: Acute Creatinine 1.49. Troponins are 189, 863 and 398. EKG with changes as above. Echocardiogram with hyperdynamic LVF, severe left ventricle hypertrophy. No clear wall motion abnormalities identified. Blood pressure seems quite high upon arrival but essentially in the normal range in the last reading. Patient does not have any recall as to why she is here. Based on vascular history and risk factors, most likely has underlying CAD. We can medically treated for NSTEMI with IV heparin drip for 48 hours. Aspirin. She is on Repatha for dyslipidemia. Otherwise, blood pressure medications will need to be optimized. With regard to cardiac catheterization, she is not a good candidate based on lack of comprehension, possibly dementia. If recurrent chest pain, may be necessary. Procedures Date of Service Date of Service: 01/04/21
[2021-01-04 11:42] VITALS: BP 133/60; PULSE 65; RESP 18; TEMP 37.2; O2SAT 97
[2021-01-04 12:13] VITALS: BMI 21.9
--- NOTE | 2021-01-04 12:55 | HO.PM.IMPN ---
Subjective Subjective Date of Service: 01/04/21 Interval History: cc: chest pain interval history: no complaints, chest pain resolved. Cardiovascular Cardiovascular: Reports no additional cardiovascular complaints Respiratory Respiratory: Reports no additional respiratory complaints Physical Exam Vital Signs: Vital Signs: Last Vital Signs Temp 99 F 01/04/21 11:42 Pulse 65 01/04/21 11:42 Resp 18 01/04/21 11:42 BP 133/60 01/04/21 11:42 Pulse Ox 97 01/04/21 11:42 Oxygen Flow Rate 2 01/02/21 15:25 Body Mass Index 21.9 General: AO X 2, no acute distress Resp:? CTA bilateral, no accessory muscles used CVS: S1,S2,RRR GI: soft, non tender, non distended Neuro:? motor grossly intact, alert Psych: appropriate affect, impaired insight? Objective Data Active Medications Acetaminophen (Acetaminophen 325 Mg Tablet) 650 mg PO Q6H PRN PRN Reason: Pain, Mild (Pain Scale 1-3) Amlodipine Besylate (Amlodipine Besylate 10 Mg Tablet) 10 mg PO BEDTIME BE[facility]; Protocol Last Admin: 01/03/21 20:54 Dose: 10 mg Documented by: ARYAN Ascorbic Acid (Ascorbic Acid 500 Mg Tablet) 1,000 mg PO DAILY [facility] Last Admin: 01/04/21 09:22 Dose: 1,000 mg Documented by: PAULA Aspirin (Aspirin Enteric Coated 81 Mg Tablet.Dr) 81 mg PO DAILY [facility] Last Admin: 01/04/21 09:22 Dose: 81 mg Documented by: PAULA Clonazepam (Clonazepam 1 Mg Tablet) 1 mg PO BEDTIME [facility] Last Admin: 01/03/21 20:53 Dose: 1 mg Documented by: ARYAN Donepezil HCl (Donepezil Hcl 10 Mg Tablet) 10 mg PO BEDTIME [facility] Last Admin: 01/03/21 20:54 Dose: 10 mg Documented by: ARYAN Heparin Sodium (Porcine) (Heparin Sodium,Porcine 5,000 Unit/Ml Vial) 2,400 unit 40 unit/kg (2400 unit) IVPUSH PROTOCOL BOLUS PRN; Protocol PRN Reason: 40 unit/kg - Heparin Protocol Heparin Sodium (Porcine) (Heparin Sodium,Porcine 5,000 Unit/Ml Vial) 4,700 unit 80 unit/kg (4700 unit) IVPUSH PROTOCOL BOLUS PRN; Protocol PRN Reason: 80 unit/kg - Heparin Protocol Hydralazine HCl (Hydralazine Hcl 50 Mg Tablet) 100 mg PO TID BEAR; Protocol Last Admin: 01/04/21 09:22 Dose: 100 mg Documented by: PAULA Hydrochlorothiazide (Hydrochlorothiazide 12.5 Mg Tablet) 12.5 mg PO DAILY [facility]; Protocol Last Admin: 01/04/21 09:22 Dose: 12.5 mg Documented by: PAULA Ceftriaxone Sodium 1 gm/ (Sodium Chloride) 50 mls @ 100 mls/hr IV Q24H [facility] Last Infusion: 01/03/21 22:25 Dose: 0 mls/hr Documented by: DARLENE Heparin Sodium/Sodium Chloride () 25,000 unit in 250 mls @ 0 mls/hr IVCONT .Q0M [facility]; Protocol Last Titration: 01/04/21 07:55 Dose: 10 units/kg/hr, 5.9 mls/hr Documented by: PAULA Cosigned by: BRICE Ferric Sodium Gluconate Complex 125 mg/ Sodium Chloride 110 mls @ 100 mls/hr IV DAILY [facility] Stop: 01/06/21 10:05 Last Infusion: 01/04/21 10:41 Dose: 0 mls/hr Documented by: PAULA Labetalol HCl (Labetalol Hcl 100 Mg/20 Ml Vial) 10 mg IVPUSH Q4H PRN PRN Reason: BP>180/90 Lisinopril (Lisinopril 5 Mg Tablet) 5 mg PO DAILY [facility]; Protocol Last Admin: 01/03/21 08:08 Dose: 5 mg Documented by: BERNA Melatonin (Melatonin 3 Mg Tablet) 6 mg PO BEDTIME PRN PRN Reason: Insomnia Memantine (Memantine Hcl 10 Mg Tablet) 10 mg PO BEDTIME [facility] Last Admin: 01/03/21 20:53 Dose: 10 mg Documented by: ARYAN Multivitamins/Vitamin C (Multivitamin Tablet) 1 tab PO DAILY [facility] Last Admin: 01/04/21 09:22 Dose: 1 tab Documented by: PAULA Non-Formulary Medication (Evolocumab [Repatha Sureclick]) 140 mg SUBCUT Q2W [facility] Pharmacy Consult (Consult Rx Perform Med Rec) 1 each MISCELLANE ONCE PRN PRN Reason: Consult order Senna (Sennosides 8.6 Mg Tablet) 17.2 mg PO BEDTIME PRN PRN Reason: Constipation Sodium Chloride (0.9 % Sodium Chloride Flush 3 Ml Syringe) 3 ml IVFLUSH QSHIFT [facility] Last Admin: 01/04/21 09:07 Dose: Not Given Documented by: PAULA Non-Admin Reason: IV Running Labs CBC & Chem 7: 01/04/21 04:53 01/04/21 04:53 Labs: Laboratory Results - last 24 hr 01/02/21 01/03/21 01/03/21 16:09 03:25 20:15 MCV MCH MCHC RDW Plt Count MPV Immature Gran % (Auto) Neut % (Auto) Lymph % (Auto) [place] % (Auto) Eos % (Auto) Baso % (Auto) Lymph # (Auto) [place] # (Auto) Eos # (Auto) Baso # (Auto) Abs Immat Gran (auto) Absolute Neuts (auto) Absolute Nucleated RBC Nucleated RBC % (auto) PT INR PTT (Heparin Protocol) Anion Gap Creatinine 1.80 H 1.48 H Estim Creat Clear Calc Estimated GFR Fasting Glucose Calcium Magnesium Iron TIBC % Saturation Unsat Iron Binding Total Bilirubin Direct Bilirubin AST ALT Alkaline Phosphatase Troponin I High Sens 863.4 H* D Total Protein Albumin 01/03/21 01/03/21 01/03/21 21:49 22:45 22:45 MCV 92.8 93.8 MCH 31.7 31.3 MCHC 34.1 33.3 RDW 13.7 13.8 Plt Count 92 L 101 L MPV 10.1 10.4 Immature Gran % (Auto) 0.6 H Neut % (Auto) 77.6 H Lymph % (Auto) 13.6 L [place] % (Auto) 5.3 Eos % (Auto) 2.6 Baso % (Auto) 0.3 Lymph # (Auto) 1.6 [place] # (Auto) 0.6 Eos # (Auto) 0.3 Baso # (Auto) 0.0 Abs Immat Gran (auto) 0.07 H Absolute Neuts (auto) 9.1 H Absolute Nucleated RBC 0.000 0.000 Nucleated RBC % (auto) 0.0 0.0 PT 11.7 INR 1.0 PTT (Heparin Protocol) 29.7 L Anion Gap Creatinine Estim Creat Clear Calc Estimated GFR Fasting Glucose Calcium Magnesium Iron TIBC % Saturation Unsat Iron Binding Total Bilirubin Direct Bilirubin AST ALT Alkaline Phosphatase Troponin I High Sens Total Protein Albumin 01/04/21 01/04/21 01/04/21 03:01 04:53 04:53 MCV 94.1 94.0 MCH 30.9 31.6 MCHC 32.8 33.6 RDW 13.9 13.9 Plt Count 79 L 79 L MPV 9.6 9.9 Immature Gran % (Auto) 0.6 H Neut % (Auto) 69.1 Lymph % (Auto) 21.1 [place] % (Auto) 5.1 Eos % (Auto) 3.6 Baso % (Auto) 0.5 Lymph # (Auto) 2.6 [place] # (Auto) 0.6 Eos # (Auto) 0.4 Baso # (Auto) 0.1 Abs Immat Gran (auto) 0.07 H Absolute Neuts (auto) 8.4 H Absolute Nucleated RBC 0.000 0.000 Nucleated RBC % (auto) 0.0 0.0 PT INR PTT (Heparin Protocol) Anion Gap 14 Creatinine 1.49 H Estim Creat Clear Calc 25.9 Estimated GFR 34 Fasting Glucose 98 Calcium 8.4 Magnesium 1.8 Iron 21 L TIBC 266 % Saturation 8 L Unsat Iron Binding 245 Total Bilirubin 0.3 Direct Bilirubin 0.2 AST 40 H D ALT 21 Alkaline Phosphatase 72 Troponin I High Sens Total Protein 5.4 L Albumin 3.2 L 01/04/21 01/04/21 01/04/21 04:53 04:53 06:53 MCV MCH MCHC RDW Plt Count MPV Immature Gran % (Auto) Neut % (Auto) Lymph % (Auto) [place] % (Auto) Eos % (Auto) Baso % (Auto) Lymph # (Auto) [place] # (Auto) Eos # (Auto) Baso # (Auto) Abs Immat Gran (auto) Absolute Neuts (auto) Absolute Nucleated RBC Nucleated RBC % (auto) PT 11.9 INR 1.0 PTT (Heparin Protocol) 128.9 H* D 58.1 D Anion Gap Creatinine Estim Creat Clear Calc Estimated GFR Fasting Glucose Calcium Magnesium Iron TIBC % Saturation Unsat Iron Binding Total Bilirubin Direct Bilirubin AST ALT Alkaline Phosphatase Troponin I High Sens 398.0 H* D Total Protein Albumin Microbiology Microbiology Results: Microbiology 01/02/21 Unknown Urine Culture - Final Urine clean catch - Clean Catch Midstream 01/02/21 17:04 Blood Culture - Preliminary Blood - Venous No growth after 24 hours. 01/02/21 16:09 Blood Culture - Preliminary Blood - Venous No growth after 24 hours. Assessment and Plan (1) Acute kidney injury: Status: Acute (2) Acute urinary retention: Status: Acute Assessment and Plan: 80-year-old female with a past medical history of hypertension, hyperlipidemia, CLL, peripheral vascular disease, pulmonary fibrosis, ulcerative colitis, dementia presented to the hospital via EMS with a chief complaint of chest pain, found to be febrile, hypertensive, positive troponins SIRS no clear infectious source at this time, cultures negatibe, afebril, will dc antibiotics, monitor bacturia negative Leuk esterase, neg nitrites, neg WBC, culutre growing normal wilma doubt UTI, MATILDE on CKD II-III resolved with relief of obstruction and hydration uyrinary retention 900cc PVR, continue peacock, eval NSTEMI, hypertensive emergency iv heparin 48 hrs labetolol, amldoipnie, hydralazine lisinopril and hctz on hold for matilde bp much better anemia no active bleed, dc protonix, monitor h and h closely while on heparin, iron studies c/w iron defeciency and inflammation iv iron outpatient gi follow up History of dementia Continue donepezil, memantine DVT prophylaxis:? heparin Code status:? Full code Quality Stroke Does the patient have a stroke diagnosis?: No VTE Prior VTE?: No VTE Risk Level:: Medical - moderate - high VTE Device Contraindication: Treatment Not Indicated VTE Drug Contraindication: N/A - Med Ordered
[2021-01-04 14:43] LABS: PTT Heparin Drip 48.8 SEC (53-77.9)
--- NOTE | 2021-01-04 15:13 | PM.UROCN ---
History of Present Illness Consult details Consult date: 01/04/21 Narrative: 80-year-old female along with past history significant for CLL, peripheral vascular disease and ulcerative colitis Admitted to hospital after brought in by EMS with question of hypertension and positive troponins Found to have 800 cc in her bladder Darby catheter placed Given bladder stretch recommend low-dose alpha-tad and voiding trial in 4-5 days Creatinine has declined since catheter placed Can follow as outpatient Review of Systems Constitutional: Constitutional: Denies chills and Denies fever(s) Cardiovascular: Cardiovascular: Reports no additional cardiovascular complaints and Denies syncope Respiratory: Respiratory: Denies cough Gastrointestinal: Gastrointestinal: Denies abdominal pain and Denies heartburn Genitourinary: Genitourinary: Reports as per HPI and Denies change in libido Neurologic: Denies syncope Psychiatric: Psychiatric: Denies change in libido Endocrine: Endocrine: Denies change in libido [facility] Past Medical History Medical History Anemia CLL (chronic lymphocytic leukemia) Coronary artery calcification seen on CAT scan Dementia Essential hypertension Hip dislocation, left Hyperlipidemia Other and unspecified hyperlipidemia Peripheral artery disease Peripheral vascular disease Pulmonary fibrosis Ulcerative colitis Vertigo Family History Family History Father No problems noted. Mother No problems noted. Surgical History Surgical History H/O carotid endarterectomy History of hip replacement History of liver biopsy S/P popliteal-distal bypass Status post carotid endarterectomy Social History Social History Household Members: Spouse Housing: House Do you presently have visiting nurse or other home services: No Unable to assess alcohol history related to: Unknown Alcohol intake: never Patient Tobacco Use Status: Current someday Tobacco user Tobacco use type: Cigarette Cigarettes Per Day: 3 e-Cigarette/Vaping Use: Currently Using Second Hand Smoke Exposure: No Advance Directives Date on File: 05/06/20 service: No Current occupational status: retired 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 Meds Allergies Allergy/AdvReac Type Severity Reaction Status Date / Time diazepam [DIAZEPAM] Allergy Severe RASH Verified 10/10/20 11:11 [id number]-[id number] Reductase Allergy Unknown UNKNOWN Verified 10/10/20 11:11 Inhibitor [[id number] REDUCTASE INHIBITOR] Active Medications: Current Medications Acetaminophen (Acetaminophen 325 Mg Tablet) 650 mg PO Q6H PRN PRN Reason: Pain, Mild (Pain Scale 1-3) Amlodipine Besylate (Amlodipine Besylate 10 Mg Tablet) 10 mg PO BEDTIME [facility]; Protocol Last Admin: 01/03/21 20:54 Dose: 10 mg Documented by: Ascorbic Acid (Ascorbic Acid 500 Mg Tablet) 1,000 mg PO DAILY [facility] Last Admin: 01/04/21 09:22 Dose: 1,000 mg Documented by: Aspirin (Aspirin Enteric Coated 81 Mg Tablet.) 81 mg PO DAILY [facility] Last Admin: 01/04/21 09:22 Dose: 81 mg Documented by: Clonazepam (Clonazepam 1 Mg Tablet) 1 mg PO BEDTIME [facility] Last Admin: 01/03/21 20:53 Dose: 1 mg Documented by: Donepezil HCl (Donepezil Hcl 10 Mg Tablet) 10 mg PO BEDTIME [facility] Last Admin: 01/03/21 20:54 Dose: 10 mg Documented by: Heparin Sodium (Porcine) (Heparin Sodium,Porcine 5,000 Unit/Ml Vial) 2,400 unit 40 unit/kg (2400 unit) IVPUSH PROTOCOL BOLUS PRN; Protocol PRN Reason: 40 unit/kg - Heparin Protocol Heparin Sodium (Porcine) (Heparin Sodium,Porcine 5,000 Unit/Ml Vial) 4,700 unit 80 unit/kg (4700 unit) IVPUSH PROTOCOL BOLUS PRN; Protocol PRN Reason: 80 unit/kg - Heparin Protocol Hydralazine HCl (Hydralazine Hcl 50 Mg Tablet) 100 mg PO TID [facility]; Protocol Last Admin: 01/04/21 15:13 Dose: 100 mg Documented by: Hydrochlorothiazide (Hydrochlorothiazide 12.5 Mg Tablet) 12.5 mg PO DAILY [facility]; Protocol Last Admin: 01/04/21 09:22 Dose: 12.5 mg Documented by: Heparin Sodium/Sodium Chloride () 25,000 unit in 250 mls @ 0 mls/hr IVCONT .Q0M [facility]; Protocol Last Titration: 01/04/21 15:08 Dose: 12 units/kg/hr, 7.08 mls/hr Documented by: Ferric Sodium Gluconate Complex 125 mg/ Sodium Chloride 110 mls @ 100 mls/hr IV DAILY [facility] Stop: 01/06/21 10:05 Last Infusion: 01/04/21 10:41 Dose: Infused Documented by: Labetalol HCl (Labetalol Hcl 100 Mg/20 Ml Vial) 10 mg IVPUSH Q4H PRN PRN Reason: BP>180/90 Lisinopril (Lisinopril 5 Mg Tablet) 5 mg PO DAILY COUNT INCLUDES THE [facility]; Protocol Last Admin: 01/03/21 08:08 Dose: 5 mg Documented by: Melatonin (Melatonin 3 Mg Tablet) 6 mg PO BEDTIME PRN PRN Reason: Insomnia Memantine (Memantine Hcl 10 Mg Tablet) 10 mg PO BEDTIME COUNT INCLUDES [facility] Last Admin: 01/03/21 20:53 Dose: 10 mg Documented by: Multivitamins/Vitamin C (Multivitamin Tablet) 1 tab PO DAILY COUNT [facility]CLUDES [facility] Last Admin: 01/04/21 09:22 Dose: 1 tab Documented by: Non-Formulary Medication (Evolocumab [Repatha Sureclick]) 140 mg SUBCUT Q2W COUNT INCLUDES THE [facility] Pharmacy Consult (Consult Rx Perform Med Rec) 1 each MISCELLANE ONCE PRN PRN Reason: Consult order Senna (Sennosides 8.6 Mg Tablet) 17.2 mg PO BEDTIME PRN PRN Reason: Constipation Sodium Chloride (0.9 % Sodium Chloride Flush 3 Ml Syringe) 3 ml IVFLUSH QSHIFT COUNT INCLUDES [facility] Last Admin: 01/04/21 15:13 Dose: 3 ml Documented by: Home Medications Medication Instructions Recorded Confirmed Last Taken Type ascorbic acid (vitamin C) 1,000 mg 1 g PO DAILY tab 03/09/20 01/02/21 01/02/21 History tablet aspirin 81 mg tablet,delayed 81 mg PO BEDTIME 03/09/20 01/02/21 01/01/21 History release calcitonin (salmon) 200 See Rx Instructions .ROUTE .COMPLEX 03/09/20 01/02/21 01/02/21 History unit/actuation nasal spray cholecalciferol (vitamin D3) 250 250 mcg PO DAILY 03/09/20 01/02/21 01/02/21 History mcg (10,000 unit) capsule clonazepam 0.5 mg tablet 1 mg PO BEDTIME 03/09/20 01/02/21 01/01/21 History donepezil 10 mg tablet 10 mg PO BEDTIME 03/09/20 01/02/21 01/01/21 History memantine 10 mg tablet 10 mg PO BEDTIME 03/09/20 01/02/21 01/01/21 History iciewazr-baz-syeir acid 0.4 1 tab PO DAILY 03/09/20 01/02/21 01/02/21 History mg-lycopene 300 mcg-lutein 250 mcg tablet (Centrum Silver) hydrochlorothiazide 12.5 mg capsule 12.5 mg PO QAM 10/02/20 01/02/21 01/02/21 History amlodipine 10 mg tablet 10 mg PO BEDTIME 01/02/21 01/02/21 01/01/21 History lisinopril 5 mg tablet 1 tab PO DAILY 01/02/21 01/02/21 01/02/21 History Physical Exam Vital Signs: Vital Signs: Last Vital Signs Temp 99 F 01/04/21 11:42 Pulse 65 01/04/21 11:42 Resp 18 01/04/21 11:42 BP 133/60 01/04/21 11:42 Pulse Ox 97 01/04/21 11:42 Oxygen Flow Rate 2 01/02/21 15:25 Body Mass Index 21.9 Const: General: cooperative, healthy appearing, comfortable and no acute distress Orientation/consciousness: patient oriented x3 HENMT: Face and sinus: Yes normal facial exam Mouth: moist mucous membranes Neck: Neck: Yes normal visual inspection, Yes full ROM and Yes trachea midline Chest: Chest palpation & inspection: normal inspection of the chest Resp: Effort & Inspection: normal respiratory effort, able to speak in complete sentences and no respiratory distress GI: Inspection: Yes normal to inspection Back/Spine/Pelvis: Cervical Spine: normal cervical lordosis Thoracic/Lumbar Spine: thoracic and lumbar spine normal to inspection Skin: General skin exam: no rashes or lesions noted Neuro: General: patient oriented x3, gait normal, tone normal and moves all extremities Extrem: General: Yes normal to inspection and Yes capillary refill normal Results Labs Result diagrams: 01/04/21 04:53 01/04/21 04:53 Labs: Abnormal lab results 01/03/21 01/03/21 01/03/21 Range/Units 20:15 21:49 22:45 WBC 11.7 H (4.8-10.8) X10*3/uL RBC 2.78 L (4.20-5.50) X10*6/uL Hgb 8.8 L (12.0-16.0) g/dl Hct 25.8 L (37.0-47.0) % Plt Count 92 L (160-400) X10*3/uL Immature Gran % (Auto) (0.0-0.4) % Neut % (Auto) (45-73) % Lymph % (Auto) (20-40) % Abs Immat Gran (auto) (0.00-0.03) X10*3/uL Absolute Neuts (auto) (2.0-8.3) x10*3/uL PTT (Heparin Protocol) 29.7 L (53-77.9) SEC Carbon Dioxide (22-29) mmol/L BUN (9-16) mg/dL Creatinine (0.5-1.4) mg/dL Iron (30-160) mcg/dL % Saturation (15-50) % AST (5-31) U/L Troponin I High Sens 863.4 H* D (<3.5-17.0) ng/L Total Protein (6.5-8.0) g/dL Albumin (3.5-5.0) g/dL 01/03/21 01/04/21 01/04/21 Range/Units 22:45 03:01 04:53 WBC 11.7 H 12.2 H 11.7 H (4.8-10.8) X10*3/uL RBC 2.75 L 2.72 L 2.66 L (4.20-5.50) X10*6/uL Hgb 8.6 L 8.4 L 8.4 L (12.0-16.0) g/dl Hct 25.8 L 25.6 L 25.0 L (37.0-47.0) % Plt Count 101 L 79 L 79 L (160-400) X10*3/uL Immature Gran % (Auto) 0.6 H 0.6 H (0.0-0.4) % Neut % (Auto) 77.6 H (45-73) % Lymph % (Auto) 13.6 L (20-40) % Abs Immat Gran (auto) 0.07 H 0.07 H (0.00-0.03) X10*3/uL Absolute Neuts (auto) 9.1 H 8.4 H (2.0-8.3) x10*3/uL PTT (Heparin Protocol) (53-77.9) SEC Carbon Dioxide (22-29) mmol/L BUN (9-16) mg/dL Creatinine (0.5-1.4) mg/dL Iron (30-160) mcg/dL % Saturation (15-50) % AST (5-31) U/L Troponin I High Sens (<3.5-17.0) ng/L Total Protein (6.5-8.0) g/dL Albumin (3.5-5.0) g/dL 01/04/21 01/04/21 01/04/21 Range/Units 04:53 04:53 04:53 WBC (4.8-10.8) X10*3/uL RBC (4.20-5.50) X10*6/uL Hgb (12.0-16.0) g/dl Hct (37.0-47.0) % Plt Count (160-400) X10*3/uL Immature Gran % (Auto) (0.0-0.4) % Neut % (Auto) (45-73) % Lymph % (Auto) (20-40) % Abs Immat Gran (auto) (0.00-0.03) X10*3/uL Absolute Neuts (auto) (2.0-8.3) x10*3/uL PTT (Heparin Protocol) 128.9 H* D (53-77.9) SEC Carbon Dioxide 20 L (22-29) mmol/L BUN 56 H (9-16) mg/dL Creatinine 1.49 H (0.5-1.4) mg/dL Iron 21 L (30-160) mcg/dL % Saturation 8 L (15-50) % AST 40 H D (5-31) U/L Troponin I High Sens 398.0 H* D (<3.5-17.0) ng/L Total Protein 5.4 L (6.5-8.0) g/dL Albumin 3.2 L (3.5-5.0) g/dL 01/04/21 Range/Units 14:06 WBC (4.8-10.8) X10*3/uL RBC (4.20-5.50) X10*6/uL Hgb (12.0-16.0) g/dl Hct (37.0-47.0) % Plt Count (160-400) X10*3/uL Immature Gran % (Auto) (0.0-0.4) % Neut % (Auto) (45-73) % Lymph % (Auto) (20-40) % Abs Immat Gran (auto) (0.00-0.03) X10*3/uL Absolute Neuts (auto) (2.0-8.3) x10*3/uL PTT (Heparin Protocol) 48.8 L (53-77.9) SEC Carbon Dioxide (22-29) mmol/L BUN (9-16) mg/dL Creatinine (0.5-1.4) mg/dL Iron (30-160) mcg/dL % Saturation (15-50) % AST (5-31) U/L Troponin I High Sens (<3.5-17.0) ng/L Total Protein (6.5-8.0) g/dL Albumin (3.5-5.0) g/dL Short CBC 01/03/21 01/03/21 01/04/21 Range/Units 21:49 22:45 03:01 WBC 11.7 H 11.7 H 12.2 H (4.8-10.8) X10*3/uL Hgb 8.8 L 8.6 L 8.4 L (12.0-16.0) g/dl Hct 25.8 L 25.8 L 25.6 L (37.0-47.0) % Plt Count 92 L 101 L 79 L (160-400) X10*3/uL 01/04/21 Range/Units 04:53 WBC 11.7 H (4.8-10.8) X10*3/uL Hgb 8.4 L (12.0-16.0) g/dl Hct 25.0 L (37.0-47.0) % Plt Count 79 L (160-400) X10*3/uL BMP 01/04/21 04:53 Sodium 138 Potassium 3.6 Chloride 108 Carbon Dioxide 20 L BUN 56 H Creatinine 1.49 H Calcium 8.4 Liver Function 01/04/21 Range/Units 04:53 Total Bilirubin 0.3 (0.0-1.0) mg/dL Direct Bilirubin 0.2 (0.0-0.5) mg/dL AST 40 H D (5-31) U/L ALT 21 (0-31) U/L Alkaline Phosphatase 72 (39-117) U/L Albumin 3.2 L (3.5-5.0) g/dL Urine 01/02/21 Range/Units 17:04 Urine Color YELLOW Urine Appearance HAZY Urine pH 6.0 (5.0-8.0) Ur Specific [place] 1.010 (1.005-1.025) Urine Protein TRACE (NEG-TRACE) MG/DL Urine Glucose (UA) NEG (NEG) MG/DL All other labs normal. Assessment and Plan (1) Urine retention: Status: Acute Urinary retention Initiate alpha-tad Voiding trial 4-5 days after initial placement Procedures Date of Service Date of Service: 01/04/21
[2021-01-04] MEDS: Heparin Sodium,Porcine 5,000 UNIT/ML VIAL 2400 UNIT IVPUSH (15:16)
[2021-01-04 15:27] VITALS: BP 142/67; PULSE 75; RESP 18; TEMP 37.3; O2SAT 93
[2021-01-04 19:23] VITALS: BP 125/58; PULSE 73; RESP 18; TEMP 36.9; O2SAT 96
[2021-01-04] MEDS: Donepezil HCl 10 MG TABLET PO (20:29)
[2021-01-04] MEDS: amLODIPine Besylate 10 MG TABLET PO (20:29)
[2021-01-04] MEDS: clonazePAM 1 MG TABLET PO (20:29)
[2021-01-04] MEDS: Memantine HCl 10 MG TABLET PO (20:30)
[2021-01-04] MEDS: Doxazosin Mesylate 1 MG TABLET PO (20:30)
[2021-01-04 21:05] LABS: PTT Heparin Drip 58.1 SEC (53-77.9)
[2021-01-04] MEDS: Heparin Sodium,Porcine/1/2NS 25,000 UNIT/250 ML IV.SOLN 7.08 UNIT IVCONT (23:07)
[2021-01-05] VITALS (8 sets, daily range): BP systolic 120–178; BP diastolic 44–77; PULSE 60–74; RESP 14–20; TEMP 36.5–37.2; O2SAT 95–97
[2021-01-05] MEDS: 0.9 % Sodium Chloride Flush 3 ML SYRINGE IVFLUSH ×3 (01:23→17:31)
[2021-01-05 03:52] LABS: PTT Heparin Drip 51.7 SEC (53-77.9)
[2021-01-05] MEDS: Heparin Sodium,Porcine 5,000 UNIT/ML VIAL 2400 UNIT IVPUSH (04:16)
--- NOTE | 2021-01-05 07:07 | PC.NURSE ---
Skin assessment completed. Patient has an unstageable pressure ulcer to coccyx. Triad applied covered with foam. Scattered bruising on arms. No other skin issues noted at this time.
[2021-01-05 07:11] LABS: Hemoglobin 8.1 g/dl (12.0-16.0)
[2021-01-05 07:13] LABS: Hematocrit 23.9 % (37.0-47.0); Mean Corpuscular HGB Conc 33.9 g/dl (31.0-35.0); Mean Corpuscular Hemoglobin 31.3 pg (27.0-33.0); Mean Corpuscular Volume 92.3 fL (80.0-98.0); Mean Platelet Volume 11.3 fL (9.4-12.3); Red Blood Count 2.59 X10*6/uL (4.20-5.50); Red Cell Distribution Width 13.8 % (11.0-16.0); White Blood Count 8.9 X10*3/uL (4.8-10.8)
[2021-01-05 07:26] LABS: Platelet Count 78 X10*3/uL (160-400)
[2021-01-05 07:45] LABS: Anion Gap 12 (12-20); Blood Urea Nitrogen 59 mg/dL (9-16); Calcium 8.4 mg/dL (8.4-10.2); Carbon Dioxide 21 mmol/L (22-29); Chloride 108 mmol/L (96-108); Creatinine Clr Calc Pharmacy 23.3; Estimated Glomerular Filt Rate 30; Glucose Fasting 93 mg/dL (60-99); Potassium 4.1 mmol/L (3.3-5.1); Sodium 137 mmol/L (135-145)
--- NOTE | 2021-01-05 07:56 | PC.NURSE ---
Skin/Wound assessment completed. 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 silver alginate tucked into wound and layed on top covered with foam dressing. No other skin issues or open areas at this time.
[2021-01-05] MEDS: Multivitamin TABLET 1 TAB PO (08:48)
[2021-01-05] MEDS: hydrALAZINE HCl 50 MG TABLET 100 MG PO ×3 (08:48→20:24)
[2021-01-05] MEDS: Ascorbic Acid 500 MG TABLET 1000 MG PO (08:48)
[2021-01-05] MEDS: Aspirin Enteric Coated 81 MG TABLET.DR PO (08:48)
[2021-01-05] MEDS: hydroCHLOROthiazide 12.5 MG TABLET PO (08:48)
[2021-01-05] MEDS: Sodium Ferric Gluconat/Sucrose 125 MG in 0.9 % Sodium Chloride 100 ML 100 MG IV (08:59)
--- NOTE | 2021-01-05 10:24 | PM.PNCARD ---
Subjective Subjective Date of Service: 01/05/21 Interval history: No chest pain or other cardiac complaints. Feels good. Review of Systems Review of Systems Yes all other systems are reviewed and are negative Cardiovascular: Reports as per HPI, Reports no additional cardiovascular complaints, Denies acrocyanosis, Denies cool extremities, Denies painful fingertips, Denies chest pain, Denies chest pain at rest, Denies diaphoresis, Denies syncope, Denies irregular heart rhythm, Denies claudication, Denies leg edema, Denies lightheadedness, Denies palpitations and Denies dyspnea Respiratory: Denies dyspnea Denies syncope Endocrine: Denies palpitations Physical Exam Vital Signs: Last Vital Signs Temp 97.7 F 01/05/21 07:01 Pulse 66 01/05/21 08:48 Resp 19 01/05/21 07:01 BP 121/48 L 01/05/21 08:48 Pulse Ox 96 01/05/21 07:01 Oxygen Flow Rate 2 01/02/21 15:25 Body Mass Index 21.9 Const General: cooperative and no acute distress [facility] Other: Unremarkable Neck Neck: Yes normal visual inspection Chest Chest palpation & inspection: normal inspection of the chest Resp Auscultation: clear to auscultation bilaterally, no crackles and no wheezes Cardio Jugular venous distension: no JVD Palpation: normal PMI Heart sounds: S1 normal heart sound present, S2 normal heart sound present, no gallops, no murmurs and no rubs GI Palpation (GI): Soft to palpation Back/Spine/Pelvis Other: unremarkable Skin General skin exam: no rashes or lesions noted Neuro Cranial nerves: Yes Other cranial nerve findings present Extrem General: Yes pedal edema (trace-1+ edema) Psych Mental Status: other Objective Labs and Meds Result diagrams: 01/05/21 06:47 01/05/21 06:47 Lab results: Laboratory Results - last 24 hr 01/04/21 01/04/21 01/05/21 14:06 20:50 03:34 WBC RBC Hgb Hct MCV MCH MCHC RDW Plt Count MPV Absolute Nucleated RBC Nucleated RBC % (auto) PTT (Heparin Protocol) 48.8 L 58.1 51.7 L Sodium Potassium Chloride Carbon Dioxide Anion Gap BUN Creatinine Estim Creat Clear Calc Estimated GFR Fasting Glucose Calcium 01/05/21 01/05/21 06:47 06:47 WBC 8.9 RBC 2.59 L Hgb 8.1 L Hct 23.9 L MCV 92.3 MCH 31.3 MCHC 33.9 RDW 13.8 Plt Count 78 L MPV 11.3 Absolute Nucleated RBC 0.000 Nucleated RBC % (auto) 0.0 PTT (Heparin Protocol) Sodium 137 Potassium 4.1 Chloride 108 Carbon Dioxide 21 L Anion Gap 12 BUN 59 H Creatinine 1.66 H Estim Creat Clear Calc 23.3 Estimated GFR 30 Fasting Glucose 93 Calcium 8.4 Progress Note: A&P Assessment and plan (1) NSTEMI (non-ST elevated myocardial infarction): Status: Acute (2) Hypertensive emergency: Status: Acute Assessment and Plan: Creatinine 1.66. HS Troponins are 189, 863 and 398. EKG with changes as above. Echocardiogram with hyperdynamic LVEF, severe left ventricle hypertrophy. No clear wall motion abnormalities identified. Blood pressure seems quite high upon arrival but essentially in the normal range in the last reading. Patient does not have any recall as to why she is here. Based on vascular history and risk factors, most likely has underlying CAD. We can medically treat for NSTEMI with IV heparin drip for 48 hours. Aspirin. She is on Repatha for dyslipidemia. With regard to cardiac catheterization, she is not a good candidate based on lack of comprehension, possibly dementia. If recurrent chest pain, may be necessary. Potentially DC home tomorrow after completion of 48hrs of IV heparin. Fall Risk Details Current Medications: Current Medications Acetaminophen (Acetaminophen 325 Mg Tablet) 650 mg PO Q6H PRN PRN Reason: Pain, Mild (Pain Scale 1-3) Amlodipine Besylate (Amlodipine Besylate 10 Mg Tablet) 10 mg PO BEDTIME [facility]; Protocol Last Admin: 01/04/21 20:29 Dose: 10 mg Documented by: Ascorbic Acid (Ascorbic Acid 500 Mg Tablet) 1,000 mg PO DAILY BEAR Last Admin: 01/05/21 08:48 Dose: 1,000 mg Documented by: Aspirin (Aspirin Enteric Coated 81 Mg Tablet.) 81 mg PO DAILY BEAR Last Admin: 01/05/21 08:48 Dose: 81 mg Documented by: Clonazepam (Clonazepam 1 Mg Tablet) 1 mg PO BEDTIME [facility] Last Admin: 01/04/21 20:29 Dose: 1 mg Documented by: Donepezil HCl (Donepezil Hcl 10 Mg Tablet) 10 mg PO BEDTIME [facility] Last Admin: 01/04/21 20:29 Dose: 10 mg Documented by: Doxazosin Mesylate (Doxazosin Mesylate 1 Mg Tablet) 1 mg PO BEDTIME [facility]; Protocol Last Admin: 01/04/21 20:30 Dose: 1 mg Documented by: Heparin Sodium (Porcine) (Heparin Sodium,Porcine 5,000 Unit/Ml Vial) 2,400 unit 40 unit/kg (2400 unit) IVPUSH PROTOCOL BOLUS PRN; Protocol PRN Reason: 40 unit/kg - Heparin Protocol Last Admin: 01/05/21 04:16 Dose: 2,300 unit Documented by: Heparin Sodium (Porcine) (Heparin Sodium,Porcine 5,000 Unit/Ml Vial) 4,700 unit 80 unit/kg (4700 unit) IVPUSH PROTOCOL BOLUS PRN; Protocol PRN Reason: 80 unit/kg - Heparin Protocol Hydralazine HCl (Hydralazine Hcl 50 Mg Tablet) 100 mg PO TID BEAR; Protocol Last Admin: 01/05/21 08:48 Dose: 100 mg Documented by: Hydrochlorothiazide (Hydrochlorothiazide 12.5 Mg Tablet) 12.5 mg PO DAILY BEAR; Protocol Last Admin: 01/05/21 08:48 Dose: 12.5 mg Documented by: Heparin Sodium/Sodium Chloride () 25,000 unit in 250 mls @ 0 mls/hr IVCONT .Q0M BEAR; Protocol Last Titration: 01/05/21 04:13 Dose: 14 units/kg/hr, 8.26 mls/hr Documented by: Ferric Sodium Gluconate Complex 125 mg/ Sodium Chloride 110 mls @ 100 mls/hr IV DAILY BEAR Stop: 01/06/21 10:05 Last Infusion: 01/05/21 10:06 Dose: Infused Documented by: Labetalol HCl (Labetalol Hcl 100 Mg/20 Ml Vial) 10 mg IVPUSH Q4H PRN PRN Reason: BP>180/90 Lisinopril (Lisinopril 5 Mg Tablet) 5 mg PO DAILY BEAR; Protocol Last Admin: 01/03/21 08:08 Dose: 5 mg Documented by: Melatonin (Melatonin 3 Mg Tablet) 6 mg PO BEDTIME PRN PRN Reason: Insomnia Memantine (Memantine Hcl 10 Mg Tablet) 10 mg PO BEDTIME [facility] Last Admin: 01/04/21 20:30 Dose: 10 mg Documented by: Multivitamins/Vitamin C (Multivitamin Tablet) 1 tab PO DAILY [facility] Last Admin: 01/05/21 08:48 Dose: 1 tab Documented by: Non-Formulary Medication (Evolocumab [Repatha Sureclick]) 140 mg SUBCUT Q2W [facility] Pharmacy Consult (Consult Rx Perform Med Rec) 1 each MISCELLANE ONCE PRN PRN Reason: Consult order Senna (Sennosides 8.6 Mg Tablet) 17.2 mg PO BEDTIME PRN PRN Reason: Constipation Sodium Chloride (0.9 % Sodium Chloride Flush 3 Ml Syringe) 3 ml IVFLUSH QSHIFT [facility] Last Admin: 01/05/21 08:48 Dose: 3 ml Documented by: Time Spent With Patient Time: Total time spent is greater than 50% in coordination of care (as documented) at patient's floor/unit and/or counseling patient: Time with patient: less than 15 minutes Progress Note: Quality Stroke Does the patient have a stroke diagnosis?: No Procedures Date of Service Date of Service: 01/05/21
[2021-01-05 10:25] LABS: PTT Heparin Drip 94.8 SEC (53-77.9)
--- NOTE | 2021-01-05 10:44 | P.PNIM_ITS ---
Subjective Subjective Date of Service: 01/05/21 Interval History: ?cc: chest pain interval history: no complaints, chest pain resolved. Cardiovascular Cardiovascular: Reports no additional cardiovascular complaints Respiratory Respiratory: Reports no additional respiratory complaints Physical Exam Vital Signs: Vital Signs: Last Vital Signs Temp 97.7 F 01/05/21 07:01 Pulse 66 01/05/21 08:48 Resp 19 01/05/21 07:01 BP 121/48 L 01/05/21 08:48 Pulse Ox 96 01/05/21 07:01 Oxygen Flow Rate 2 01/02/21 15:25 Body Mass Index 21.9 General: AO X 2, no acute distress Resp:? CTA bilateral, no accessory muscles used CVS: S1,S2,RRR GI: soft, non tender, non distended Neuro:? motor grossly intact, alert Psych: appropriate affect, impaired insight? Objective Data Active Medications Acetaminophen (Acetaminophen 325 Mg Tablet) 650 mg PO Q6H PRN PRN Reason: Pain, Mild (Pain Scale 1-3) Amlodipine Besylate (Amlodipine Besylate 10 Mg Tablet) 10 mg PO BEDTIME [facility]; Protocol Last Admin: 01/04/21 20:29 Dose: 10 mg Documented by: WESLEY Ascorbic Acid (Ascorbic Acid 500 Mg Tablet) 1,000 mg PO DAILY BEAR Last Admin: 01/05/21 08:48 Dose: 1,000 mg Documented by: JUANCHO Aspirin (Aspirin Enteric Coated 81 Mg Tablet.) 81 mg PO DAILY BE[facility] Last Admin: 01/05/21 08:48 Dose: 81 mg Documented by: JUANCHO Clonazepam (Clonazepam 1 Mg Tablet) 1 mg PO BEDTIME [facility] Last Admin: 01/04/21 20:29 Dose: 1 mg Documented by: WESLEY Donepezil HCl (Donepezil Hcl 10 Mg Tablet) 10 mg PO BEDTIME [facility] Last Admin: 01/04/21 20:29 Dose: 10 mg Documented by: WESLEY Doxazosin Mesylate (Doxazosin Mesylate 1 Mg Tablet) 1 mg PO BEDTIME [facility]; Protocol Last Admin: 01/04/21 20:30 Dose: 1 mg Documented by: WESLEY Heparin Sodium (Porcine) (Heparin Sodium,Porcine 5,000 Unit/Ml Vial) 2,400 unit 40 unit/kg (2400 unit) IVPUSH PROTOCOL BOLUS PRN; Protocol PRN Reason: 40 unit/kg - Heparin Protocol Last Admin: 01/05/21 04:16 Dose: 2,300 unit Documented by: SAUL Comments: per heparin protocol Heparin Sodium (Porcine) (Heparin Sodium,Porcine 5,000 Unit/Ml Vial) 4,700 unit 80 unit/kg (4700 unit) IVPUSH PROTOCOL BOLUS PRN; Protocol PRN Reason: 80 unit/kg - Heparin Protocol Hydralazine HCl (Hydralazine Hcl 50 Mg Tablet) 100 mg PO TID BE[facility]; Protocol Last Admin: 01/05/21 08:48 Dose: 100 mg Documented by: JUANCHO Hydrochlorothiazide (Hydrochlorothiazide 12.5 Mg Tablet) 12.5 mg PO DAILY BE[facility]; Protocol Last Admin: 01/05/21 08:48 Dose: 12.5 mg Documented by: JUANCHO Heparin Sodium/Sodium Chloride () 25,000 unit in 250 mls @ 0 mls/hr IVCONT .Q0M [facility]; Protocol Last Titration: 01/05/21 10:37 Dose: 0 units/kg/hr, 0 mls/hr Documented by: JUANCHO Cosigned by: FLORIAN Ferric Sodium Gluconate Complex 125 mg/ Sodium Chloride 110 mls @ 100 mls/hr IV DAILY BEAR Stop: 01/06/21 10:05 Last Infusion: 01/05/21 10:06 Dose: 0 mls/hr Documented by: JUANCHO Labetalol HCl (Labetalol Hcl 100 Mg/20 Ml Vial) 10 mg IVPUSH Q4H PRN PRN Reason: BP>180/90 Lisinopril (Lisinopril 5 Mg Tablet) 5 mg PO DAILY BEAR; Protocol Last Admin: 01/03/21 08:08 Dose: 5 mg Documented by: BERNA Melatonin (Melatonin 3 Mg Tablet) 6 mg PO BEDTIME PRN PRN Reason: Insomnia Memantine (Memantine Hcl 10 Mg Tablet) 10 mg PO BEDTIME [facility] Last Admin: 01/04/21 20:30 Dose: 10 mg Documented by: WESLEY Multivitamins/Vitamin C (Multivitamin Tablet) 1 tab PO DAILY [facility] Last Admin: 01/05/21 08:48 Dose: 1 tab Documented by: JUANCHO Non-Formulary Medication (Evolocumab [Repatha Sureclick]) 140 mg SUBCUT Q2W [facility] Pharmacy Consult (Consult Rx Perform Med Rec) 1 each MISCELLANE ONCE PRN PRN Reason: Consult order Senna (Sennosides 8.6 Mg Tablet) 17.2 mg PO BEDTIME PRN PRN Reason: Constipation Sodium Chloride (0.9 % Sodium Chloride Flush 3 Ml Syringe) 3 ml IVFLUSH QSHIFT [facility] Last Admin: 01/05/21 08:48 Dose: 3 ml Documented by: JUANCHO Labs CBC & Chem 7: 01/05/21 06:47 01/05/21 06:47 Labs: Laboratory Results - last 24 hr 01/04/21 01/04/21 01/05/21 14:06 20:50 03:34 MCV MCH MCHC RDW Plt Count MPV Absolute Nucleated RBC Nucleated RBC % (auto) PTT (Heparin Protocol) 48.8 L 58.1 51.7 L Anion Gap Estim Creat Clear Calc Estimated GFR Fasting Glucose Calcium 01/05/21 01/05/21 01/05/21 06:47 06:47 09:57 MCV 92.3 MCH 31.3 MCHC 33.9 RDW 13.8 Plt Count 78 L MPV 11.3 Absolute Nucleated RBC 0.000 Nucleated RBC % (auto) 0.0 PTT (Heparin Protocol) 94.8 H D Anion Gap 12 Estim Creat Clear Calc 23.3 Estimated GFR 30 Fasting Glucose 93 Calcium 8.4 Microbiology Microbiology Results: Microbiology 01/02/21 17:04 Blood Culture - Preliminary Blood - Venous No growth after 48 hours. 01/02/21 16:09 Blood Culture - Preliminary Blood - Venous No growth after 48 hours. 01/02/21 Unknown Urine Culture - Final Urine clean catch - Clean Catch Midstream Assessment and Plan (1) Acute kidney injury: Status: Acute (2) Acute urinary retention: Status: Acute Assessment and Plan: 80-year-old female with a past medical history of hypertension, hyperlipidemia, CLL, peripheral vascular disease, pulmonary fibrosis, ulcerative colitis, de mentia presented to the hospital via EMS with a chief complaint of chest pain, found to be febrile, hypertensive, positive troponins SIRS no clear infectious source at this time, cultures negative, afebrile, off antibiotics, monitor bacturia negative Leuk esterase, neg nitrites, neg WBC, culutre growing normal wilma doubt UTI, 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 heparin Code status:? Full code Quality Stroke Does the patient have a stroke diagnosis?: No VTE Prior VTE?: No VTE Risk Level:: Medical - moderate - high VTE Device Contraindication: Treatment Not Indicated VTE Drug Contraindication: N/A - Med Ordered
--- NOTE | 2021-01-05 11:48 | MHC.CLN ---
Addendum entered by Janine Cassidy, HELENA 01/05/21 13:15: AGREE WITH PROVIDER'S ASSESSMENT BELOW Original Note: F/U PRESSURE INJURY ON COCCYX IS AN OLD, CHRONIC STAGE III WOUND PT STATES SHE EATS THE FOOD SHE IS GIVEN, PO INTAKE DOCUMENTED 75% PT STATES SHE HAS NOT RECEIVED ENSURE SUPPLEMENT-IT WAS NOTED SHE HAS A HX OF DEMENTIA AND IS PLEASANTLY CONFUSED PT RECEIVING ENSURE SUPPLEMENT BID AND 2 PACKETS DELFINA DAILY TO PROVIDE 860 KCALS AND 45 GRAMS PROTEIN MONITOR PO INTAKE CLOSELY MONITOR SUPPLEMENT ACCEPTANCE
--- NOTE | 2021-01-05 13:26 | MHC.CM.PN ---
PER ROUNDS PT DC PLANS REMAN INBS HOME NO SERV CEIS
--- NOTE | 2021-01-05 14:48 | PC.NURSE ---
PTT-HD AT 1000: 94.8 PER PROTOCOL GTT HELD X 1 HR, THEN DECREASED BY 3 UNITS/KG/HR. CURRENT RATE: 11 UNITS/KG/HR. NEXT PTT-HD TO BE DRAWN AT 1745.
[2021-01-05 18:46] LABS: PTT Heparin Drip 46.9 SEC (53-77.9)
[2021-01-05] MEDS: Donepezil HCl 10 MG TABLET PO (20:24)
[2021-01-05] MEDS: clonazePAM 1 MG TABLET PO (20:25)
[2021-01-05] MEDS: Doxazosin Mesylate 1 MG TABLET PO (20:25)
[2021-01-05] MEDS: Memantine HCl 10 MG TABLET PO (20:25)
[2021-01-05] MEDS: amLODIPine Besylate 10 MG TABLET PO (20:26)
[2021-01-06] MEDS: Heparin Sodium,Porcine/1/2NS 25,000 UNIT/250 ML IV.SOLN 7.67 UNIT IVCONT (00:16)
[2021-01-06] MEDS: 0.9 % Sodium Chloride Flush 3 ML SYRINGE IVFLUSH ×2 (01:09→09:32)
[2021-01-06 01:43] LABS: PTT Heparin Drip 73.1 SEC (53-77.9)
[2021-01-06 03:43] VITALS: BP 153/66; PULSE 73; RESP 16; TEMP 36.9; O2SAT 97
[2021-01-06 07:31] LABS: Hematocrit 23.9 % (37.0-47.0); Hemoglobin 8.1 g/dl (12.0-16.0); Mean Corpuscular HGB Conc 33.9 g/dl (31.0-35.0); Mean Corpuscular Hemoglobin 31.3 pg (27.0-33.0); Mean Corpuscular Volume 92.3 fL (80.0-98.0); Red Blood Count 2.59 X10*6/uL (4.20-5.50); Red Cell Distribution Width 13.6 % (11.0-16.0)
[2021-01-06 07:43] LABS: Anion Gap 12 (12-20); Blood Urea Nitrogen 60 mg/dL (9-16); Carbon Dioxide 23 mmol/L (22-29); Chloride 108 mmol/L (96-108); Creatinine Clr Calc Pharmacy 24.5; Estimated Glomerular Filt Rate 31; Glucose Fasting 91 mg/dL (60-99); Potassium 4.6 mmol/L (3.3-5.1); Sodium 138 mmol/L (135-145)
[2021-01-06 07:51] LABS: Platelet Count 98 X10*3/uL (160-400)
[2021-01-06 08:00] VITALS: BP 141/66; PULSE 78; RESP 16; TEMP 36.9; O2SAT 98
[2021-01-06] MEDS: Sodium Ferric Gluconat/Sucrose 125 MG in 0.9 % Sodium Chloride 100 ML 100 MG IV (09:32)
[2021-01-06] MEDS: Multivitamin TABLET 1 TAB PO (09:41)
[2021-01-06 09:42] VITALS: BP 141/66; PULSE 78
[2021-01-06] MEDS: hydrALAZINE HCl 50 MG TABLET 100 MG PO (09:42)
[2021-01-06] MEDS: Aspirin Enteric Coated 81 MG TABLET.DR PO (09:42)
[2021-01-06] MEDS: hydroCHLOROthiazide 12.5 MG TABLET PO (09:43)
[2021-01-06] MEDS: Ascorbic Acid 500 MG TABLET 1000 MG PO (09:43)
--- NOTE | 2021-01-06 10:23 | PM.DS ---
DS: Providers Provider Date of Service: 01/06/21 Date of admission: 01/03/21 07:54 Primary care physician: Walter Braun MD Consults: 01/02/21 19:53 Consult to Gastroenterology Routine Consulting Provider: Harrison Bermeo Reason for consultation: Guaiac-positive stool 01/02/21 20:15 Consult to Urology Routine Consulting Provider: Cristo More Reason for consultation: urine retension 01/03/21 12:25 Consult to Cardiology Routine Consulting Provider: Abimael Montana Reason for consultation: chest pain, elevated trop DS: Diagnosis Discharge Diagnosis (1) Acute kidney injury: Status: Acute (2) Acute urinary retention: Status: Acute DS: Summary Hospital Course Hospital Course: patient was admitted for SIRS. no source of infection was found, antibiotics were discontinued and patient remained afebrile. 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 she was seen by urology who started cardura and recommended voiding trial in 4-5 days. patient was also found to have NSTEMI due to hypertensive emergency. her blood pressure returned to normal without changing her home regimen, she was seen by cardiology who recommended 48 hours iv heparin, echo showed EF >70%, severe increased left ventricular wall thickness and grade 1 diastolic dysfunction, it was felt patient would not benefit from catheterization at this time. she will continue with asa and repatha (statin not tolerated). patient noted to have iron defeciency anemia, no evidence of GI bleed even while on IV heparin, she was given IV iron, recommended to follow up outpatient with gastroenterology. patients symptoms have resolved and will be discharged home. Time Spent with Patient Time attestation: Total time spent providing and/or coordinating discharge services: Discharge coordination time: Greater than 30 minutes Quality: Stroke Does the patient have a stroke diagnosis?: No Physical Exam Vital Signs: Vital Signs: Last Vital Signs Temp 98.5 F 01/06/21 08:00 Pulse 78 01/06/21 09:42 Resp 16 01/06/21 08:00 BP 141/66 H 01/06/21 09:42 Pulse Ox 98 01/06/21 08:00 Oxygen Flow Rate 2 01/02/21 15:25 Body Mass Index 21.9 General: AO X 2, no acute distress Resp:? CTA bilateral, no accessory muscles used CVS: S1,S2,RRR GI: soft, non tender, non distended Neuro:? motor grossly intact, alert Psych: appropriate affect, impaired insight? DS: Data Data Completed and Pending Labs on day of discharge: Laboratory Results - last 24 hr 01/05/21 01/05/21 01/06/21 09:57 18:17 01:15 WBC RBC Hgb Hct MCV MCH MCHC RDW Plt Count MPV Absolute Nucleated RBC Nucleated RBC % (auto) PTT (Heparin Protocol) 94.8 H D 46.9 L D 73.1 D Sodium Potassium Chloride Carbon Dioxide Anion Gap BUN Creatinine Estim Creat Clear Calc Estimated GFR Fasting Glucose Calcium 01/06/21 01/06/21 01/06/21 07:14 07:14 07:14 WBC 7.0 RBC 2.59 L Hgb 8.1 L Hct 23.9 L MCV 92.3 MCH 31.3 MCHC 33.9 RDW 13.6 Plt Count 98 L D MPV 11.0 Absolute Nucleated RBC 0.000 Nucleated RBC % (auto) 0.0 PTT (Heparin Protocol) 56.0 D Sodium 138 Potassium 4.6 Chloride 108 Carbon Dioxide 23 Anion Gap 12 BUN 60 H Creatinine 1.58 H Estim Creat Clear Calc 24.5 Estimated GFR 31 Fasting Glucose 91 Calcium 8.0 L Preliminary micro results at discharge 01/02/21 17:04 Blood Culture - Preliminary Blood - Venous No growth after 48 hours. 01/02/21 16:09 Blood Culture - Preliminary Blood - Venous No growth after 48 hours. Discharge Plan Discharge Patient Disposition: Home Health Service Discharge Diagnosis: nstemi Referrals: Cristo More MD [Physician] - 1 Week Harrison Bermeo MD [Physician] - 1 Week Walter Braun MD [Primary Care Provider] - 1 Week Discharge Medications: New doxazosin 1 mg Tablet 1 mg PO BEDTIME Qty: 30 RF: 0 Continued Repatha SureClick 140 mg/mL pen injector 140 mg subcut Q2W 90 Days Qty: 7 RF: 3 lisinopril 5 mg tablet 1 tab PO DAILY RF: 0 amlodipine 10 mg tablet 10 mg PO BEDTIME RF: 0 hydrochlorothiazide 12.5 mg capsule 12.5 mg PO QAM RF: 0 hydralazine 100 mg tablet 100 mg PO TID Qty: 270 RF: 4 clonazepam 0.5 mg tablet 1 mg PO BEDTIME RF: 0 calcitonin (salmon) 200 unit/actuation spray,non-aerosol See Rx Instructions .ROUTE .COMPLEX RF: 0 memantine 10 mg tablet 10 mg PO BEDTIME RF: 0 donepezil 10 mg tablet 10 mg PO BEDTIME RF: 0 aspirin 81 mg tablet,delayed release (DR/EC) 81 mg PO BEDTIME RF: 0 cholecalciferol (vitamin D3) 250 mcg (10,000 unit) capsule 250 mcg PO DAILY RF: 0 ascorbic acid (vitamin C) 1,000 mg tablet 1 g PO DAILY RF: 0 Centrum Silver 0.4-300-250 mg-mcg-mcg tablet 1 tab PO DAILY RF: 0 Discharge Orders: Discharge Order (Routine); Ordered 01/06/21 Ordered By: Lasha Parkinson Diet: advance to usual diet Activity on Discharge: As tolerated Stand Alone Forms: Patient Portal Discharge page Care Plan Goals: recovery Health Concerns: nstemi, urinary retention, anemia Plan of Treatment: start cardura, voiding trial in 3-4 days, follow up with urology, continue with aspirin and repatha, follow up with cardiology, follow up with gi for iron defeciency anemia Assessment: see above
--- NOTE | 2021-01-06 11:00 | MHC.CM.PN ---
Patient has been medically cleared for dc to home today with services.CM met with Patient and her at bedside and addressed IMM, providing her with the original and placing a copy on the chart. A referral was made to [facility] who has been informed of today's dc.Patient is aware of and in agreement with the dc plan.
--- NOTE | 2021-01-06 11:08 | W.MHC.F2F ---
Service Date Service Date: 01/06/21 Reasons for Services Reason for senior living: medication management, medication treatment, teach disease management, GI/ assessment and other (peacock care, voiding trial in 01/09/21, for issues with flow, flush with 30 cc normal saline, if comes out during first 2 days can replace, otherwise leave out) Homebound: Leaving the home is medically contraindicated at this time without the asist of a device and/or another person due th the listed conditions above and below. Certification: Based on the above findings, I certify that this patient is confined to the home and needs intermittent senior living care, physical therapy and/or speech therapy, or continues to need occupational therapy. The patient is under my care, and I have initiated the establishment of the plan of care. The patient will be followed by a physician who will periodically review the plan of care.
== END 2021-01-06 13:26 | disposition home health service (06) | DRG 682 ==
LOC: HO.ED 20:32 → HO.EDOVER 01-03 08:28 → HO.IMC 01-03 18:48
PROVIDERS: Hospitalist; Admitting Provider Internal Medicine; Emergency Provider Emergency Medicine; PCP Family Medicine; Visit Provider Internal Medicine
DX: N17.9 Acute kidney failure, unspecified (principal); I21.4 Non-ST elevation (NSTEMI) myocardial infarction; R65.10 Systemic inflammatory response syndrome (SIRS) of non-infectious origin without acute organ dysfunction; I16.0 Hypertensive urgency; R33.9 Retention of urine, unspecified; E78.5 Hyperlipidemia, unspecified; F03.90 Unspecified dementia, unspecified severity, without behavioral disturbance, psychotic disturbance, mood disturbance, and anxiety; I12.9 Hypertensive chronic kidney disease with stage 1 through stage 4 chronic kidney disease, or unspecified chronic kidney disease; N18.30 Chronic kidney disease, stage 3 unspecified; D63.1 Anemia in chronic kidney disease; Z85.6 Personal history of leukemia; F17.210 Nicotine dependence, cigarettes, uncomplicated; Z71.6 Tobacco abuse counseling; Z20.822 Contact with and (suspected) exposure to COVID-19; Z79.82 Long term (current) use of aspirin; Z79.899 Other long term (current) drug therapy
CPT/HCPCS: 36415; 71045; 76700; 80048; 80076; 81001; 82272; 83540; 83605; 83735; 83880; 84484; 85025; 85027; 85610; 85730; 87040; 87086; 87635; 93005; 93306; 96361; 96365; 99285; J0696; J2916

== ENCOUNTER 2021-01-12 11:28 | Outpatient (REF) | payer MEDICARE, SELFPAY ==
[2021-01-12 13:30] LABS: MANUAL DIFF FLAG NO
[2021-01-12 13:32] LABS: Basophils Absolute Auto 0.1 X10*3/uL (0.0-0.2); Basophils Percent Auto 0.8 % (0-2); Eosinophils Absolute Auto 0.5 X10*3/uL (0.0-0.4); Hematocrit 27.9 % (37.0-47.0); Hemoglobin 8.8 g/dl (12.0-16.0); Imm Gran Abs Auto 0.02 X10*3/uL (0.00-0.03); Imm Gran Pct Auto 0.3 % (0.0-0.4); Lymphocytes Absolute Auto 1.7 X10*3/uL (1.2-4.9); Lymphocytes Percent Auto 25.3 % (20-40); Mean Corpuscular HGB Conc 31.5 g/dl (31.0-35.0); Mean Corpuscular Hemoglobin 30.8 pg (27.0-33.0); Mean Corpuscular Volume 97.6 fL (80.0-98.0); Mean Platelet Volume 10.5 fL (9.4-12.3); Monocytes Absolute Auto 0.6 X10*3/uL (0.1-1.2); Monocytes Percent Auto 9.6 % (2-11); Neutrophils Absolute Auto 3.7 x10*3/uL (2.0-8.3); Platelet Count 285 X10*3/uL (160-400); Red Blood Count 2.86 X10*6/uL (4.20-5.50); Red Cell Distribution Width 14.8 % (11.0-16.0); White Blood Count 6.6 X10*3/uL (4.8-10.8)
[2021-01-12 13:44] LABS: Anion Gap 15 (12-20); Blood Urea Nitrogen 64 mg/dL (9-16); Carbon Dioxide 20 mmol/L (22-29); Chloride 110 mmol/L (96-108); Estimated Glomerular Filt Rate 28; Iron 78 mcg/dL (30-160); Percent Iron Saturation 25 % (15-50); Potassium 5.1 mmol/L (3.3-5.1); Sodium 140 mmol/L (135-145); Total Iron Binding Capacity 309 mcg/dL (228-428); Unsaturated Iron Binding 231 ug/dL
[2021-01-12 14:21] LABS: Folate > 20.0 ng/mL (> or = 4.0); Vitamin B12 1361 pg/mL (200-900)
== END 2021-01-12 11:29 | disposition home or self-care (01) ==
LOC: HO.10HDL 11:28
PROVIDERS: Visit Provider Family Medicine
DX: D64.9 Anemia, unspecified (principal); I10 Essential (primary) hypertension
CPT/HCPCS: 36415; 80051; 82565; 82607; 82746; 83540; 84520; 85025

== ENCOUNTER → 2021-01-26 13:04 | Outpatient (BNVA) | payer MEDICARE, SELFPAY | PROVIDERS: PCP Family Medicine | DX: R33.9 Retention of urine, unspecified (principal) | CPT/HCPCS: 51798; 99202 ==

== ENCOUNTER → 2021-02-13 14:10 | Outpatient (BNVA) | payer MEDICARE, SELFPAY | PROVIDERS: PCP Internal Medicine; Referring Provider Internal Medicine; Visit Provider Internal Medicine | DX: I73.9 Peripheral vascular disease, unspecified (principal); I25.10 Atherosclerotic heart disease of native coronary artery without angina pectoris; I10 Essential (primary) hypertension; E78.5 Hyperlipidemia, unspecified; F03.90 Unspecified dementia, unspecified severity, without behavioral disturbance, psychotic disturbance, mood disturbance, and anxiety; I25.2 Old myocardial infarction; Z98.890 Other specified postprocedural states | CPT/HCPCS: 99212 ==

== ENCOUNTER 2021-03-14 14:54 | Outpatient (REF) | payer MEDICARE, SELFPAY ==
[2021-03-14 15:28] LABS: MANUAL DIFF FLAG NO
[2021-03-14 15:37] LABS: Basophils Absolute Auto 0.1 X10*3/uL (0.0-0.2); Basophils Percent Auto 0.8 % (0-2); Eosinophils Absolute Auto 0.7 X10*3/uL (0.0-0.4); Eosinophils Percent Auto 9.8 % (0-4); Hematocrit 29.2 % (37.0-47.0); Hemoglobin 9.3 g/dl (12.0-16.0); Imm Gran Abs Auto 0.02 X10*3/uL (0.00-0.03); Imm Gran Pct Auto 0.3 % (0.0-0.4); Immature Retic Fraction 11.5 % (3.0-15.9); Lymphocytes Absolute Auto 1.3 X10*3/uL (1.2-4.9); Lymphocytes Percent Auto 20.2 % (20-40); Mean Corpuscular HGB Conc 31.8 g/dl (31.0-35.0); Mean Corpuscular Hemoglobin 30.9 pg (27.0-33.0); Mean Platelet Volume 9.8 fL (9.4-12.3); Monocytes Absolute Auto 0.6 X10*3/uL (0.1-1.2); Neutrophils Percent Auto 59.9 % (45-73); Platelet Count 205 X10*3/uL (160-400); Red Blood Count 3.01 X10*6/uL (4.20-5.50); Red Cell Distribution Width 13.9 % (11.0-16.0); Retic HGB Equivalent 31.9 pg (30.0-35.0); Reticulocyte Percent 1.7 % (0.5-1.8); Reticulocytes Absolute 0.052 X10*6/uL (0.026-0.095); White Blood Count 6.6 X10*3/uL (4.8-10.8)
[2021-03-14 16:04] LABS: Anion Gap 15 (12-20); Blood Urea Nitrogen 54 mg/dL (9-16); Carbon Dioxide 19 mmol/L (22-29); Chloride 112 mmol/L (96-108); Estimated Glomerular Filt Rate 32; Iron 45 mcg/dL (30-160); Percent Iron Saturation 13 % (15-50); Potassium 5.1 mmol/L (3.3-5.1); Sodium 141 mmol/L (135-145); Total Iron Binding Capacity 352 mcg/dL (228-428); Unsaturated Iron Binding 307 ug/dL
[2021-03-16 13:37] LABS: Haptoglobin 158 mg/dL (43-212)
== END 2021-03-14 14:55 | disposition home or self-care (01) ==
LOC: HO.LAB 14:54
PROVIDERS: PCP Family Medicine; Visit Provider Family Medicine
DX: D64.9 Anemia, unspecified (principal); I10 Essential (primary) hypertension
CPT/HCPCS: 36415; 80051; 82565; 83010; 83540; 84520; 85025; 85045; 86880

== ENCOUNTER 2021-04-03 11:55 | Outpatient (REF) | payer MEDICARE, SELFPAY ==
[2021-04-03 13:55] LABS: MANUAL DIFF FLAG NO
[2021-04-03 14:06] LABS: Basophils Absolute Auto 0.1 X10*3/uL (0.0-0.2); Basophils Percent Auto 1.5 % (0-2); Eosinophils Absolute Auto 0.6 X10*3/uL (0.0-0.4); Eosinophils Percent Auto 10.7 % (0-4); Hemoglobin 9.5 g/dl (12.0-16.0); Imm Gran Abs Auto 0.02 X10*3/uL (0.00-0.03); Imm Gran Pct Auto 0.4 % (0.0-0.4); Lymphocytes Percent Auto 18.9 % (20-40); Mean Corpuscular HGB Conc 31.7 g/dl (31.0-35.0); Mean Corpuscular Hemoglobin 30.5 pg (27.0-33.0); Mean Corpuscular Volume 96.5 fL (80.0-98.0); Mean Platelet Volume 10.6 fL (9.4-12.3); Monocytes Absolute Auto 0.5 X10*3/uL (0.1-1.2); Neutrophils Absolute Auto 3.2 x10*3/uL (2.0-8.3); Neutrophils Percent Auto 59.5 % (45-73); Platelet Count 220 X10*3/uL (160-400); Red Blood Count 3.11 X10*6/uL (4.20-5.50); Red Cell Distribution Width 14.2 % (11.0-16.0); White Blood Count 5.4 X10*3/uL (4.8-10.8)
[2021-04-03 14:27] LABS: Alanine Aminotransferase 58 U/L (0-31); Albumin Level 3.8 g/dL (3.5-5.0); Alkaline Phosphatase 227 U/L (39-117); Anion Gap 14 (12-20); Aspartate Amino Transferase 42 U/L (5-31); Bilirubin Total 0.3 mg/dL (0.0-1.0); Blood Urea Nitrogen 41 mg/dL (9-16); Calcium 9.1 mg/dL (8.4-10.2); Carbon Dioxide 21 mmol/L (22-29); Chloride 111 mmol/L (96-108); Estimated Glomerular Filt Rate 42; Glucose Random 122 mg/dL (60-115); Potassium 4.6 mmol/L (3.3-5.1); Sodium 141 mmol/L (135-145)
[2021-04-03 14:33] LABS: Lactate Dehydrogenase 238 U/L (122-220)
[2021-04-03 14:46] LABS: Erythrocyte Sedimentation Rate 10 MM/HR (0-20)
[2021-04-05 20:26] LABS: Haptoglobin 136 mg/dL (43-212)
== END 2021-04-03 11:56 | disposition home or self-care (01) ==
LOC: HO.10HDL 11:55
PROVIDERS: Visit Provider Internal Medicine Medical Oncology
DX: D69.6 Thrombocytopenia, unspecified (principal); C91.10 Chronic lymphocytic leukemia of B-cell type not having achieved remission; D58.9 Hereditary hemolytic anemia, unspecified
CPT/HCPCS: 36415; 80053; 83010; 83615; 85025; 85652

== ENCOUNTER → 2021-04-09 15:11 | Outpatient (BNVA) | payer MEDICARE, SELFPAY | PROVIDERS: PCP Family Medicine | DX: R33.9 Retention of urine, unspecified (principal) | CPT/HCPCS: 51798; 99212 ==

== ENCOUNTER 2021-04-29 15:21 | Inpatient (IN) | payer MEDICARE, SELFPAY ==
[2021-04-29] VITALS (12 sets, daily range): BP systolic 118–168; BP diastolic 37–93; PULSE 45–57; RESP 12–18; TEMP 33.1–36.3; O2SAT 97–99; BMI 19.5
--- NOTE | ~2021-04-29 | CT_ITS ---
EXAMINATION: CT HEAD WITHOUT CONTRAST CLINICAL INFORMATION: Fall. Head trauma. COMPARISON: Previous head CT December 2018 TECHNIQUE: Contiguous axial imaging was performed from the skull base to vertex without intravenous administration of contrast. This CT examination was performed using dose optimization techniques as appropriate, variously including the following: *Automated exposure control *Adjustment of mA and/or kV according to patient size (this includes techniques or standardized protocols for targeted exams where dose is matched to indication/reason for exam; i.e. extremities or head) *Use of iterative reconstruction technique DLP: 831 mGy-cm FINDINGS: There is no evidence of an extra-axial collection. There is no evidence of intra-axial or extra-axial hemorrhage. The ventricles and extra-axial CSF spaces are prominent suggestive of generalized atrophy. There is nonspecific periventricular white matter disease. There are old left basal ganglia lacunar infarcts that appear unchanged. No mass, mass effect or acute infarct is seen. No skull fracture is seen. There is a scalp hematoma adjacent to the left frontal bone. She lives paranasal sinuses, mastoid air cells and middle ears are clear. CT/CT head/brain wo con IMPRESSION: No acute intracranial findings. Scalp hematoma adjacent to the left frontal bone.
--- NOTE | ~2021-04-29 | CT_ITS ---
EXAMINATION: CT CERVICAL SPINE WITHOUT CONTRAST CLINICAL INFORMATION: Fall. Neck pain. COMPARISON: Previous CT December 2018 TECHNIQUE: Axial images through the cervical spine without contrast. Sagittal and coronal reconstructions on the technologist workstation were performed. This CT examination was performed using dose optimization techniques as appropriate, variously including the following: *Automated exposure control *Adjustment of mA and/or kV according to patient size (this includes techniques or standardized protocols for targeted exams where dose is matched to indication/reason for exam; i.e. extremities or head) *Use of iterative reconstruction technique DLP: 330 mGy-cm FINDINGS: There is mild 2 mm anterior subluxation of C4 with respect to C5. This is similar to previous exam. Bone alignment is otherwise normal. No fracture or dislocation is seen. There is evidence of degenerative spondylosis and degenerative disc disease at C5-C6 C6-C7 and C7-T1. There is bilateral multilevel facet arthritis, left greater than right. There are degenerative changes at the C1 dens articulation. Prevertebral soft tissues are normal. There is bilateral carotid calcification. Visualized lung apices are clear. CT/CT cervical spine wo con IMPRESSION: Degenerative changes. No fracture or dislocation seen. Fleischner guidelines were followed.
--- NOTE | ~2021-04-29 | XR_ITS ---
EXAMINATION: BILATERAL KNEES CLINICAL INFORMATION: Bilateral knee pain COMPARISON: Right knee 03/04/2020 Bilateral knees 09/16/2016 TECHNIQUE: 2 views each knee FINDINGS: Left knee: Again seen are moderate tricompartmental degenerative changes without significant interval change when compared to the prior study dated 03/04/2020 with the exception of development of a small joint effusion and prepatellar soft tissue swelling. No fractures. No chondrocalcinosis. Right knee: A tiny joint effusion may be present. Mild tricompartmental degenerative changes are seen. No fracture. No prepatellar soft tissue swelling right the left knee. XR/XR knee LT 2V IMPRESSION: No evidence of acute injury. Bilateral degenerative changes seen, left greater than right. Small joint effusions, left greater than right.
--- NOTE | ~2021-04-29 | US_ITS ---
EXAMINATION: US VENOUS ULTRASOUND WITH DOPPLER LOWER EXTREMITY, BILATERAL CLINICAL INFORMATION: Leg pain COMPARISON: Previous exam August 2013 TECHNIQUE: Ultrasound of the deep veins is performed from the hip to the calf with compression sonography and color and pulse Doppler assessment. Spectral analysis with color-flow imaging is performed. FINDINGS: RIGHT: There is normal venous compression and respiratory variation and augmented flow. The visualized common femoral vein, superficial femoral vein, profunda femoral vein, popliteal vein, and the trifurcation region shows no evidence of acute deep venous thrombosis. There is a linear echogenic density or septation in the popliteal vein. This may present changes from old DVT. There is no significant popliteal fossa cyst. LEFT: There is normal venous compression and respiratory variation and augmented flow. The visualized common femoral vein, superficial femoral vein, profunda femoral vein, popliteal vein, and the posterior tibial vein shows no evidence of deep venous thrombosis. The left peroneal vein is not well visualized. There is no significant popliteal fossa cyst. There is evidence of atherosclerotic disease. US/US venous duplex LE BI IMPRESSION: No acute DVT demonstrated in the bilateral lower extremity. Question changes of old DVT in the right popliteal vein. The left peroneal vein is not well visualized. Atherosclerotic disease.
--- NOTE | ~2021-04-29 | XR_ITS ---
EXAMINATION: BILATERAL KNEES CLINICAL INFORMATION: Bilateral knee pain COMPARISON: Right knee 03/04/2020 Bilateral knees 09/16/2016 TECHNIQUE: 2 views each knee FINDINGS: Left knee: Again seen are moderate tricompartmental degenerative changes without significant interval change when compared to the prior study dated 03/04/2020 with the exception of development of a small joint effusion and prepatellar soft tissue swelling. No fractures. No chondrocalcinosis. Right knee: A tiny joint effusion may be present. Mild tricompartmental degenerative changes are seen. No fracture. No prepatellar soft tissue swelling right the left knee. XR/XR knee RT 2V IMPRESSION: No evidence of acute injury. Bilateral degenerative changes seen, left greater than right. Small joint effusions, left greater than right.
--- NOTE | ~2021-04-29 | CT_ITS ---
EXAMINATION: CT ANGIOGRAM OF THE CHEST WITH AND WITHOUT CONTRAST (CT PULMONARY ANGIOGRAM FOR PE) CLINICAL INFORMATION: Reason for Exam sob, fall COMPARISON: CT chest 10/10/2014 TECHNIQUE: Prior to contrast administration, noncontrast localization images were obtained. Subsequently, multidetector volumetric imaging was performed from the thoracic inlet to below the diaphragms following the administration of 85 mL Omnipaque 350 intravenous contrast. No contrast reaction reported Sagittal, coronal, and MIP oblique sagittal reformatted images were obtained on the CT workstation, uploaded to PACS, and reviewed. This CT examination was performed using dose optimization techniques as appropriate, variously including the following: *Automated exposure control *Adjustment of mA and/or kV according to patient size (this includes techniques or standardized protocols for targeted exams where dose is matched to indication/reason for exam; i.e. extremities or head) *Use of iterative reconstruction technique Total exam dose-length product 345 mGy-cm FINDINGS: QUALITY OF STUDY/CONTRAST BOLUS: Satisfactory. PULMONARY ARTERIES: No central or segmental pulmonary emboli. THORACIC AORTA: No aneurysm or dissection. LUNG: No focal consolidation, nodules or masses. There is increased groundglass density seen throughout the lungs without focal abnormality which may be secondary to edema. PLEURA: Bilateral small pleural effusions are present, right greater than left. MEDIASTINUM: Normal heart size. No pericardial effusion. No hilar or mediastinal lymphadenopathy. No evidence of septal bowing or right heart strain. CHEST WALL/AXILLA: No axillary or internal mammary lymphadenopathy. OSSEOUS STRUCTURES: No acute or suspicious osseous abnormality. UPPER ABDOMEN: No reflux of contrast into the hepatic veins to suggest elevated right heart pressures. CT/CT angio chest PE protocol IMPRESSION: 1. No evidence of pulmonary emboli. 2. Bilateral small pleural effusions and increased groundglass changes in the lungs may suggest CHF. 3. There is bibasilar atelectasis without consolidation or worrisome lung masses. VTE: negative
--- NOTE | ~2021-04-29 | CT_ITS ---
EXAMINATION: CT ABDOMEN AND PELVIS WITH CONTRAST CLINICAL INFORMATION: Abdominal pain status post fall COMPARISON: Lower extremity arterial duplex 09/26/2020, CT abdomen pelvis 09/27/2015 TECHNIQUE: Multidetector volumetric images were obtained from the superior aspect of the liver through the pubic symphysis following administration 85 mL of Omnipaque 350 intravenous contrast. Sagittal and coronal reformatted images were obtained on the technologist's workstation. Oral contrast: No This CT examination was performed using dose optimization techniques as appropriate, variously including the following: *Automated exposure control *Adjustment of mA and/or kV according to patient size (this includes techniques or standardized protocols for targeted exams where dose is matched to indication/reason for exam; i.e. extremities or head) *Use of iterative reconstruction technique DLP: 816 mGy-cm FINDINGS: LUNG BASES: See report of chest CT same day LIVER, GALLBLADDER, AND BILIARY TREE: The liver is normal in size, and shape. Some mild periportal edema is present. A tiny amount of ascites is present adjacent to the liver. No focal hepatic lesion or biliary ductal dilatation is present. The gallbladder is unremarkable with no evidence of radiopaque gallstones, gallbladder wall thickening, or obvious pericholecystic inflammatory changes. PANCREAS: Unremarkable. SPLEEN: Unremarkable. ADRENAL GLANDS: Unremarkable. KIDNEYS AND URETERS: The kidneys are normal in size, shape, and attenuation. Bilateral benign Bosniak class I renal cysts are present. No further follow-up or imaging is needed. There is a tiny punctate calcification in the mid left kidney that may represent a nonobstructing calculus (15:28). Vascular calcifications are seen bilaterally. No hydronephrosis, hydroureter, or ureteral calculi seen. No perinephric stranding. BLADDER: Cannot be evaluated secondary to marked artifact from hip prostheses of Darby catheter appears to be present GASTROINTESTINAL TRACT: Extensive colonic diverticular changes are present in the colon especially the sigmoid. No definite evidence of acute diverticulitis. The small and large bowel are otherwise unremarkable. The appendix is unremarkable. ABDOMINAL WALL: No significant hernia is appreciated. LYMPH NODES: No gross retroperitoneal adenopathy. Some fluid is present in the presacral region that was not present previously. VASCULAR: There is marked calcific atherosclerotic changes present in the aorta and iliofemoral vessels. I suspect that there is a stenosis present in the distal left internal iliac artery. PELVIC VISCERA: A small amount of free fluid is present in the pelvis. I believe the uterus is present but obscured by beam hardening artifact. OSSEOUS STRUCTURES: No acute fractures are seen. Pedicular screws are present at multiple levels. Bilateral hip prostheses are present. CT/CT abdomen pelvis w con IMPRESSION: 1. A cause for the patient's diffuse abdominal pain has not been found. 2. There is mild periportal edema and a tiny bit of ascites. 3. Extensive colonic diverticular changes without definite diverticulitis. Some fluid is present in the presacral region Fleischner guidelines were followed.
--- NOTE | 2021-04-29 15:54 | PC.NURSE ---
Addendum entered by Gem Saleh RN 04/29/21 17:44: Generalized bruising noted to B/L LE with L knee swelling and B/L inner thigh rash. Original Note: Pt received from triage: Pt hx dementia- pt AOX3- difficulty with time, but is at baseline as per family. Sinus tamika noted and lungs diminished. Healing and bruised hematoma noted to L forehead. Pt denies lightheadedness, dizziness, N/V.
--- NOTE | 2021-04-29 16:04 | ECG_ITS ---
Test Reason : FALL Blood Pressure : / mmHG Vent. Rate : 044 BPM Atrial Rate : 044 BPM P-R Int : 224 ms QRS Dur : 090 ms QT Int : 536 ms P-R-T Axes : 039 035 084 degrees QTc Int : 458 ms Marked sinus bradycardia with 1st degree A-V block Nonspecific T wave abnormality Abnormal ECG When compared with ECG of 03-JAN-2021 21:10, Premature atrial complexes are no longer Present WI interval has increased Vent. rate has decreased BY 27 BPM Nonspecific T wave abnormality no longer evident in Anterior leads Referred By: Luciano Slater Electronically Signed By:PANCHITO DONAHUE MD
--- NOTE | 2021-04-29 16:40 | ED.GENADULT ---
HPI - General Adult General Chief complaint: Head Injury Stated complaint: fall/head INJ Time Seen by Provider: 04/29/21 16:04 Source: patient and family Mode of arrival: ambulatory Limitations: no limitations History of Present Illness HPI narrative: This is an 81-year-old female past medical history significant for CLL, dementia, CAD, hypertension, anemia presenting to the emergency department with family were concerns that patient's mental status has changed over the past week. At baseline patient does have dementia however they know that about a week ago she started slurring her words. She has also been weaker than usual. His she has had multiple falls within the past week. Over the past week she has fallen about 4 times. She has never lost consciousness during these falls. However she has not been able to get up by herself and has required assistance. According to she is also reporting bilateral knee pain and hip pain. She lives at home with her . She has had a head strike multiple times. Bruising throughout patient's body. Patient poor historian due to dementia. When I ask her how she is feeling she says I feel okay. She is on baby aspirin daily. Onset (ago): week(s) (1) Location: head, left, right, upper extremity and lower extremity Relieving factors: none Exacerbating factors: none Associated symptoms: denies other symptoms Treatments prior to arrival: none Related Data Home Medications Medication Instructions Recorded Confirmed ascorbic acid (vitamin C) 1,000 mg 1 g PO DAILY tab 03/09/20 04/29/21 tablet aspirin 81 mg tablet,delayed 81 mg PO BEDTIME 03/09/20 04/29/21 release calcitonin (salmon) 200 See Rx Instructions .ROUTE .COMPLEX 03/09/20 04/29/21 unit/actuation nasal spray cholecalciferol (vitamin D3) 250 250 mcg PO DAILY 03/09/20 04/29/21 mcg (10,000 unit) capsule clonazepam 0.5 mg tablet 1 mg PO BEDTIME 03/09/20 04/29/21 donepezil 10 mg tablet 10 mg PO BEDTIME 03/09/20 04/29/21 memantine 10 mg tablet 10 mg PO BEDTIME 03/09/20 04/29/21 [id number]-kos-inuvp acid 0.4 1 tab PO DAILY 03/09/20 04/29/21 mg-lycopene 300 mcg-lutein 250 mcg tablet (Centrum Silver) hydrochlorothiazide 12.5 mg capsule 12.5 mg PO QAM 10/02/20 04/29/21 amlodipine 10 mg tablet 10 mg PO BEDTIME 01/02/21 04/29/21 lisinopril 5 mg tablet 1 tab PO DAILY 01/02/21 04/29/21 Previous Rx's Medication Instructions Recorded evolocumab 140 mg/mL subcutaneous 140 mg SUBCUT Q2W 90 Days #7 ml 09/27/20 pen injector (Sheree Madrigal) hydralazine 100 mg tablet 100 mg PO TID #270 tab 10/02/20 carvedilol 6.25 mg tablet (Coreg) 6.25 mg PO BID #180 tab 02/13/21 Allergies Allergy/AdvReac Type Severity Reaction Status Date / Time diazepam [DIAZEPAM] Allergy Severe RASH Verified 04/09/21 15:13 Trhephr-DEC-PaE Reductase Allergy Severe Muscle Pain Verified 04/09/21 15:13 Inhibitor [[id number] REDUCTASE INHIBITOR] Review of Systems Review of Systems: Patient has dementia at baseline unable to answer questions appropriately. Yes Unobtainable due to mental status [facility] Past Medical History Attestation statement: The following information was validated with the patient. Source: old records reviewed and nursing notes reviewed Medical History Anemia CLL (chronic lymphocytic leukemia) Coronary artery calcification seen on CAT scan COVID-19 vaccine series completed Dementia Essential hypertension Hx of reduction of closed dislocation Hyperlipidemia NSTEMI (non-ST elevated myocardial infarction) Peripheral artery disease Peripheral vascular disease Pulmonary fibrosis Ulcerative colitis Vertigo Surgical History H/O carotid endarterectomy H/O colonoscopy History of hip replacement History of liver biopsy History of revision of total hip arthroplasty Hx of lumbar discectomy S/P popliteal-distal bypass Family History Family History Father No problems noted. Mother No problems noted. Social History Social History Household Members: Spouse Housing: House Are you a primary family day care provider to a significant other at home: No Do you presently have visiting nurse or other home services: Yes ([facility] post recent hospital discharge 01/06/21) Alcohol intake: current Alcohol intake frequency: a few times a week Alcohol type: wine Patient Tobacco Use Status: Current everyday Tobacco user Tobacco use type: Cigarette Cigarettes Per Day: 4 Years Smoked: 62 e-Cigarette/Vaping Use: Currently Using Second Hand Smoke Exposure: No Advance Directives: Yes Advance Directives on File: Yes Advance Directives Date on File: 05/06/20 service: No Current occupational status: retired 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 Physical Exam ED Vital Signs: Vital Signs - 24 hr 04/29/21 15:39 04/29/21 15:59 04/29/21 16:58 Temperature 93.8 F L 92.6 F L Pulse Rate 45 L 47 L Respiratory Rate 18 15 Blood Pressure 168/93 H 118/38 L Pulse Oximetry 97 98 04/29/21 17:36 04/29/21 18:20 04/29/21 19:15 Temperature 91.6 F L 93.0 F L 93.6 F L Pulse Rate 45 L 47 L 47 L Respiratory Rate 14 14 12 Blood Pressure 141/43 H 138/42 L 135/37 L Pulse Oximetry 99 99 04/29/21 19:31 04/29/21 20:39 Temperature 93.9 F L 95.7 F L Pulse Rate 49 L 50 Respiratory Rate 14 16 Blood Pressure 146/42 H 146/45 H Pulse Oximetry 98 BMI result Body Mass Index 19.5 VSS Appearance:awake, alert following commands however only oriented to person and situation not time. ? No acute distress.? Head: Normocephalic, atraumatic, no step-offs + hematoma to the left aspect of forehead. Images attached. Eyes: Pupils equal, round and reactive to light.? ENT: Pharynx normal.? Neck: Normal inspection.? Neck supple.? CVS: Normal heart rate and rhythm.? Pulses normal.? Respiratory: No respiratory distress.? +Breath sounds diminished bilaterally. Wheezing throughout. Abdomen: Soft and + diffusely tender.? Skin: Skin warm and dry.? Normal skin color.? Normal skin turgor.?+ bruising to bilateral upper and lower extremities. + rash on groin images attached Extremities: No lower extremity edema.? No calf ttp. 5/5 strength to bilateral upper and lower extremities Back: No midline tenderness, no C-spine tenderness, full range of motion, no CVA tenderness bilaterally Neuro: awake, alert following commands however only oriented to person and situation not time.? No motor deficit.? No sensory deficit. CN 2-12 intact Course Reevaluation(s) Reevaluation #1: Patient is noted to be hypothermic. Donal Hugger has been initiated at this time. At this time I do suspect infection. Empiric antibiotics have been ordered as well as fluids. Time: 16:41 Reevaluation #2: Patient noted to have a slight leukocytosis, noted to be anemic to units of RBCs have been ordered. Written consent was obtained from family daughter and . Platelets low however no need for transfusion at this time. Patient's BUN and creatinine noted to be higher than baseline with an acute kidney injury. At this time she is being hydrated with fluids. Lactic acid 0.3. Magnesium 2.8. Transaminases markedly elevated. Alk-phos markedly elevated. A CT of the abdomen with contrast will be ordered at this time. Patient is diffusely tender upon palpation to her abdomen. Time: 17:52 Reevaluation #3: Guaiac positive. Abdomen and pelvis CT with mild periportal edema and a small amount of ascites. There is extensive colonic diverticular changes without definite diverticulitis. CT of the cervical spine with degenerative changes. No fracture dislocation. Angio PE protocol no evidence of PE, bilateral small pleural effusions and ground-glass opacities in the lungs could suggest CHF. With bi basilar atelectasis without consolidation. CT of the head with no acute intracranial findings. Scalp hematoma adjacent to the left frontal bone. Bilateral x-rays of the knee with degenerative change as, small joint effusions left greater than right. Time: 20:28 Additional Reevaluation(s): Patient's temperature improving 95.6. Re-evaluated patient no signs of acute CHF. Patient will be admitted to the hospitalist team Medical Decision Making MDM Narrative Medical decision making narrative: [id number] 81 yo f pmhx CLL, dementia, CAD, hypertension, anemia presents to ED w/ multiple falls and AMS X1 week. PE patient awake, alert following commands however only oriented to person and situation not time. Bruising noted throughout patient's body. Images attached in chart. Hematoma noted to the left forehead. Normal neuro examination with generalized weakness throughout. Wheezing appreciated throughout. The regular rate, slow rhythm likely sinus bradycardia. Patient is noted to be hypothermic with a rectal temperature of 92.6 degrees, bradycardic and hypertensive. Based off patient history, physical examination at this time infection is suspected. I also did a sepsis focused exam upon her arrival. Plan- labs, imaging, cardiac enzymes, EKG Patient will initially be warmed with warm blankets, Donal Hugger, warm fluids. Temperature will be rechecked in 30 mins Medical Records Medical records reviewed: Yes I reviewed the patient's medical records. Lab Data Lab results reviewed: Yes I reviewed the patient's lab results. Result diagrams: 04/29/21 16:49 04/29/21 16:49 Labs: Lab Results 04/29/21 04/29/21 04/29/21 Range/Units 16:49 16:49 16:49 WBC 12.1 H (4.8-10.8) X10*3/uL RBC 1.93 L D (4.20-5.50) X10*6/uL Hgb 5.9 L* D (12.0-16.0) g/dl Hct 18.5 L* D (37.0-47.0) % MCV 95.9 (80.0-98.0) fL MCH 30.6 (27.0-33.0) pg MCHC 31.9 (31.0-35.0) g/dl RDW 15.1 (11.0-16.0) % Plt Count 115 L D (160-400) X10*3/uL MPV 11.9 (9.4-12.3) fL Immature Gran % (Auto) 0.5 H (0.0-0.4) % Neut % (Auto) 82.7 H (45-73) % Lymph % (Auto) 6.1 L (20-40) % Bryan % (Auto) 8.8 (2-11) % Eos % (Auto) 1.7 (0-4) % Baso % (Auto) 0.2 (0-2) % Lymph # (Auto) 0.7 L (1.2-4.9) X10*3/uL Bryan # (Auto) 1.1 (0.1-1.2) X10*3/uL Eos # (Auto) 0.2 (0.0-0.4) X10*3/uL Baso # (Auto) 0.0 (0.0-0.2) X10*3/uL Abs Immat Gran (auto) 0.06 H (0.00-0.03) X10*3/uL Absolute Neuts (auto) 10.0 H (2.0-8.3) x10*3/uL Absolute Nucleated RBC 0.000 (0.0-0.012) X10*3/uL Nucleated RBC % (auto) 0.0 (0.0-0.2) /100WBC PT 10.8 (9.9-13.0) SEC INR 1.0 (0.9-1.1) D-Dimer High Sensitivty 290 NG/ML Sodium 142 (135-145) mmol/L Potassium 4.9 (3.3-5.1) mmol/L Chloride 115 H (96-108) mmol/L Carbon Dioxide 20 L (22-29) mmol/L Anion Gap 12 (12-20) BUN 75 H D (9-16) mg/dL Creatinine 1.64 H (0.5-1.4) mg/dL Estim Creat Clear Calc 24.8 Estimated GFR 30 Random Glucose 100 (60-115) mg/dL Lactic Acid (0.5-2.0) mmol/L Calcium 9.2 (8.4-10.2) mg/dL Magnesium 2.8 H (1.6-2.6) mg/dL Total Bilirubin 0.2 (0.0-1.0) mg/dL AST 166 H (5-31) U/L ALT 199 H (0-31) U/L Alkaline Phosphatase 464 H D (39-117) U/L Total Creatine Kinase 58 (26-140) U/L Troponin I High Sens (<3.5-17.0) ng/L Total Protein 5.1 L (6.5-8.0) g/dL Albumin 3.3 L (3.5-5.0) g/dL Lipase 69 (8-78) U/L Urine Color Urine Appearance Urine pH (5.0-8.0) Ur Specific Sherwood (1.005-1.025) Urine Protein (NEG-TRACE) MG/DL Urine Glucose (UA) (NEG) MG/DL Urine Ketones (NEG) MG/DL Urine Blood (NEG) Urine Nitrite (NEG) Ur Leukocyte Esterase (NEG) Urine RBC (0) /HPF Urine WBC (0-4) /HPF Ur Squamous Epith Cells /LPF Amorphous Sediment /LPF Urine Bacteria /LPF Stool Occult Blood (NEGATIVE) COVID-19 (GENIE) (Negative) COVID-19 Clin Com Blood Type Antibody Screen Crossmatch Enhanced Crossmatch 04/29/21 04/29/21 04/29/21 Range/Units 16:49 16:49 16:49 WBC (4.8-10.8) X10*3/uL RBC (4.20-5.50) X10*6/uL Hgb (12.0-16.0) g/dl Hct (37.0-47.0) % MCV (80.0-98.0) fL MCH (27.0-33.0) pg MCHC (31.0-35.0) g/dl RDW (11.0-16.0) % Plt Count (160-400) X10*3/uL MPV (9.4-12.3) fL Immature Gran % (Auto) (0.0-0.4) % Neut % (Auto) (45-73) % Lymph % (Auto) (20-40) % Bryan % (Auto) (2-11) % Eos % (Auto) (0-4) % Baso % (Auto) (0-2) % Lymph # (Auto) (1.2-4.9) X10*3/uL Bryan # (Auto) (0.1-1.2) X10*3/uL Eos # (Auto) (0.0-0.4) X10*3/uL Baso # (Auto) (0.0-0.2) X10*3/uL Abs Immat Gran (auto) (0.00-0.03) X10*3/uL Absolute Neuts (auto) (2.0-8.3) x10*3/uL Absolute Nucleated RBC (0.0-0.012) X10*3/uL Nucleated RBC % (auto) (0.0-0.2) /100WBC PT (9.9-13.0) SEC INR (0.9-1.1) D-Dimer High Sensitivty NG/ML Sodium (135-145) mmol/L Potassium (3.3-5.1) mmol/L Chloride (96-108) mmol/L Carbon Dioxide (22-29) mmol/L Anion Gap (12-20) BUN (9-16) mg/dL Creatinine (0.5-1.4) mg/dL Estim Creat Clear Calc Estimated GFR Random Glucose (60-115) mg/dL Lactic Acid 0.3 L (0.5-2.0) mmol/L Calcium (8.4-10.2) mg/dL Magnesium (1.6-2.6) mg/dL Total Bilirubin (0.0-1.0) mg/dL AST (5-31) U/L ALT (0-31) U/L Alkaline Phosphatase (39-117) U/L Total Creatine Kinase (26-140) U/L Troponin I High Sens 5.0 (<3.5-17.0) ng/L Total Protein (6.5-8.0) g/dL Albumin (3.5-5.0) g/dL Lipase (8-78) U/L Urine Color Urine Appearance Urine pH (5.0-8.0) Ur Specific Sherwood (1.005-1.025) Urine Protein (NEG-TRACE) MG/DL Urine Glucose (UA) (NEG) MG/DL Urine Ketones (NEG) MG/DL Urine Blood (NEG) Urine Nitrite (NEG) Ur Leukocyte Esterase (NEG) Urine RBC (0) /HPF Urine WBC (0-4) /HPF Ur Squamous Epith Cells /LPF Amorphous Sediment /LPF Urine Bacteria /LPF Stool Occult Blood (NEGATIVE) COVID-19 (GENIE) Negative (Negative) COVID-19 Clin Com See Note Blood Type Antibody Screen Crossmatch Enhanced Crossmatch 04/29/21 04/29/21 04/29/21 Range/Units 17:21 17:22 17:35 WBC (4.8-10.8) X10*3/uL RBC (4.20-5.50) X10*6/uL Hgb (12.0-16.0) g/dl Hct (37.0-47.0) % MCV (80.0-98.0) fL MCH (27.0-33.0) pg MCHC (31.0-35.0) g/dl RDW (11.0-16.0) % Plt Count (160-400) X10*3/uL MPV (9.4-12.3) fL Immature Gran % (Auto) (0.0-0.4) % Neut % (Auto) (45-73) % Lymph % (Auto) (20-40) % Bryan % (Auto) (2-11) % Eos % (Auto) (0-4) % Baso % (Auto) (0-2) % Lymph # (Auto) (1.2-4.9) X10*3/uL Bryan # (Auto) (0.1-1.2) X10*3/uL Eos # (Auto) (0.0-0.4) X10*3/uL Baso # (Auto) (0.0-0.2) X10*3/uL Abs Immat Gran (auto) (0.00-0.03) X10*3/uL Absolute Neuts (auto) (2.0-8.3) x10*3/uL Absolute Nucleated RBC (0.0-0.012) X10*3/uL Nucleated RBC % (auto) (0.0-0.2) /100WBC PT (9.9-13.0) SEC INR (0.9-1.1) D-Dimer High Sensitivty NG/ML Sodium (135-145) mmol/L Potassium (3.3-5.1) mmol/L Chloride (96-108) mmol/L Carbon Dioxide (22-29) mmol/L Anion Gap (12-20) BUN (9-16) mg/dL Creatinine (0.5-1.4) mg/dL Estim Creat Clear Calc Estimated GFR Random Glucose (60-115) mg/dL Lactic Acid (0.5-2.0) mmol/L Calcium (8.4-10.2) mg/dL Magnesium (1.6-2.6) mg/dL Total Bilirubin (0.0-1.0) mg/dL AST (5-31) U/L ALT (0-31) U/L Alkaline Phosphatase (39-117) U/L Total Creatine Kinase (26-140) U/L Troponin I High Sens (<3.5-17.0) ng/L Total Protein (6.5-8.0) g/dL Albumin (3.5-5.0) g/dL Lipase (8-78) U/L Urine Color YELLOW Urine Appearance HAZY Urine pH 5.5 (5.0-8.0) Ur Specific Sherwood 1.015 (1.005-1.025) Urine Protein 2+ H (NEG-TRACE) MG/DL Urine Glucose (UA) NEG (NEG) MG/DL Urine Ketones NEG (NEG) MG/DL Urine Blood NEG (NEG) Urine Nitrite NEG (NEG) Ur Leukocyte Esterase NEG (NEG) Urine RBC 0-2 (0) /HPF Urine WBC 0 (0-4) /HPF Ur Squamous Epith Cells 1+ /LPF Amorphous Sediment 3+ /LPF Urine Bacteria NONE /LPF Stool Occult Blood POSITIVE (NEGATIVE) COVID-19 (GENIE) (Negative) COVID-19 Clin Com Blood Type B Positive Antibody Screen NEGATIVE Crossmatch See Detail Enhanced Crossmatch See Detail Critical Care Time Critical Care Time Critical Care Time: Yes Total Critical Care Time: 60 Attestation: I attest to this time spent taking care of the patient obtaining a history, physical exam, reviewing labs and imaging, speaking to the hospitalist and my attending. Discharge Plan Discharge Clinical Impression: Dementia, Anemia due to blood loss, Hypothermia, CHF (congestive heart failure), MATILDE (acute kidney injury), Abnormal transaminases, First degree heart block, Ecchymosis Patient Disposition: Admitted As Inpatient
[2021-04-29 16:55] LABS: MANUAL DIFF FLAG NO
[2021-04-29 16:57] LABS: Basophils Percent Auto 0.2 % (0-2); Mean Corpuscular Hemoglobin 30.6 pg (27.0-33.0); PLT CLUMP 1; SCAN SMEAR FLAG 1
[2021-04-29] MEDS: cefTRIAXone sodium 1 GM in 0.9 % Sodium Chloride 50 ML IV (16:57)
--- NOTE | 2021-04-29 16:58 | PC.NURSE ---
Temperature rechecked rectally, 92.6. [employer]PER[employer] Rebecca made aware and pt placed on bear hugger. RN will continue to monitor.
[2021-04-29 16:59] LABS: Eosinophils Absolute Auto 0.2 X10*3/uL (0.0-0.4); Eosinophils Percent Auto 1.7 % (0-4); Imm Gran Abs Auto 0.06 X10*3/uL (0.00-0.03); Imm Gran Pct Auto 0.5 % (0.0-0.4); Lymphocytes Absolute Auto 0.7 X10*3/uL (1.2-4.9); Lymphocytes Percent Auto 6.1 % (20-40); Mean Corpuscular HGB Conc 31.9 g/dl (31.0-35.0); Mean Corpuscular Volume 95.9 fL (80.0-98.0); Mean Platelet Volume 11.9 fL (9.4-12.3); Monocytes Absolute Auto 1.1 X10*3/uL (0.1-1.2); Monocytes Percent Auto 8.8 % (2-11); Neutrophils Percent Auto 82.7 % (45-73); Red Blood Count 1.93 X10*6/uL (4.20-5.50); Red Cell Distribution Width 15.1 % (11.0-16.0)
[2021-04-29 17:02] LABS: Platelet Count 115 X10*3/uL (160-400); White Blood Count 12.1 X10*3/uL (4.8-10.8)
[2021-04-29 17:06] LABS: Hematocrit 18.5 % (37.0-47.0); Hemoglobin 5.9 g/dl (12.0-16.0)
[2021-04-29 17:08] LABS: Lactic Acid 0.3 mmol/L (0.5-2.0)
[2021-04-29 17:12] LABS: Prothrombin Time 10.8 SEC (9.9-13.0)
[2021-04-29 17:13] LABS: COVID-19 Test Negative (Negative); IDNOW Serial# 16C4AD1C
[2021-04-29 17:17] LABS: Alanine Aminotransferase 199 U/L (0-31); Albumin Level 3.3 g/dL (3.5-5.0); Alkaline Phosphatase 464 U/L (39-117); Anion Gap 12 (12-20); Aspartate Amino Transferase 166 U/L (5-31); Bilirubin Total 0.2 mg/dL (0.0-1.0); Blood Urea Nitrogen 75 mg/dL (9-16); Calcium 9.2 mg/dL (8.4-10.2); Carbon Dioxide 20 mmol/L (22-29); Chloride 115 mmol/L (96-108); Creatinine Clr Calc Pharmacy 24.8; Estimated Glomerular Filt Rate 30; Glucose Random 100 mg/dL (60-115); Magnesium 2.8 mg/dL (1.6-2.6); Potassium 4.9 mmol/L (3.3-5.1); Sodium 142 mmol/L (135-145); Total Protein 5.1 g/dL (6.5-8.0)
--- NOTE | 2021-04-29 17:18 | PHA.MEDREC ---
Pharmacy Consult ? Medication Reconciliation Pharmacy has completed the medication reconciliation.
[2021-04-29 17:43] LABS: Appearance Urine HAZY; Color Urine YELLOW; Glucose Urine UA NEG (NEG); Leukocyte Esterase Urine NEG (NEG); Nitrite Urine NEG (NEG); PH 5.5 (5.0-8.0); Specific Gravity - Urine 1.015 (1.005-1.025); UACC Culture Trigger NO; Urine Blood NEG (NEG); Urine Ketones NEG (NEG); Urine Protein 2+ MG/DL (NEG-TRACE)
[2021-04-29 17:43] LABS: OBS Int Ctl Valid YES; OBS1 POSITIVE (NEGATIVE)
[2021-04-29 18:00] LABS: WBC Urine 0 /HPF (0-4)
[2021-04-29 18:01] LABS: Amorphous Sediment Urine 3+ /LPF; RBC Urine 0-2 /HPF (0); Squamous Epithelial Cell Urine 1+ /LPF
[2021-04-29 18:02] LABS: D Dimer High Sensitivity 290 NG/ML
[2021-04-29] MEDS: Albuterol Sulfate (0.083%) 2.5 MG/3 ML VIAL.NEB INHALE (18:10)
[2021-04-29] MEDS: iohexoL 350 MG/ML 100 ML INFUS..BTL IV (18:16)
[2021-04-29 18:37] LABS: Lipase 69 U/L (8-78)
--- NOTE | 2021-04-29 19:22 | PC.NURSE ---
this RN resuming care for pt. pt alert and oriented to self, birthday, location but not year. pt states 8/10 pain. respirations even and unlabored on 2L nc. pt denies any chest pain or SOB. 1 unit of blood started per APR.
--- NOTE | 2021-04-29 19:58 | PC.NURSE ---
charge nurse informed this RN that pt rang call zafar and stated she was feeling SOB. this RN went into room and asked pt if she felt short of breath and pt stated a little . 02 sat 100% on 2L nc, respirations 14 even and unlabored. lung sounds clear bilaterally. pt does not appear in any respiratory distress or any other distress at this time. blood drip slowed down by this RN. pt informed to call RN if starting to feel more SOB. call zafar placed in reach. provider notified.
--- NOTE | 2021-04-29 20:45 | P.HPHOSP_ITS ---
History of Present Illness Date of Service: 04/29/21 Chief Complaint: SOB 81-year-old female with a past medical history of hypertension, hyperlipidemia, CAD, dementia, CLL, anemia, lives with the family presented to the hospital with a chief complaint of frequent falls Most of the history obtained from the patient, patient's , patient's daughter at bedside. Per ER team patient on presentation noted to be mildly confused but mental status gradually improving. At the time of my interview patient is alert and awake. And mental status almost back to her baseline as per the family. Reportedly patient has been feeling generally weak over the past 1 week and has had at least 4 episodes of falls. She had 1 fall in the bathroom where she hit her head. Reports that patient has chronic knee pains and left hip pain; which probably contributed to her falls. Denies any loss of consciousness. Denies any prodrome. Denies any postictal confusion. Denies any seizure-like activities. Reports he has mild shortness of breath. Denies any chest pain or palpitations. Patient's family also reported that patient has been having mild slurring of her words. Which currently improved at the time of my interview. Reports she has black stools but attributes to her iron supplementation. Denies any numbness tingling or focal weakness. Review of all other systems is negative except mentioned above ER course: Per ER team patient's exam was fairly benign but noted to have ecchymosis of the frontal scalp, bilateral leg ecchymosis, groin rash; urinalysis negative, chest x-ray negative; CT chest showed no evidence of pulmonary embolism, CT abdomen pelvis showed no acute findings; CT head and CT cervical spine showed no acute findings. On labs noted to have hemoglobin of 5.9. Guaiac positive. Patient being transfused [address] chest also showed mild pleural effusion and findings concerning for CHF. On labs noted to have elevated creatinine and elevated liver enzymes. ER team also mentioned the patient had temperature of 93.8 degrees F on presentation-was placed on Donal Hugger with improvement in temperature 96 degrees F; urinalysis negative; CT showed no evidence of pneumonia. On telemetry patient was noted to be bradycardic with first-degree AV block. Admitted to the hospital for further management [facility], LAT[facility] Medical History Anemia CLL (chronic lymphocytic leukemia) Coronary artery calcification seen on CAT scan COVID-19 vaccine series completed Dementia Essential hypertension Hx of reduction of closed dislocation Hyperlipidemia NSTEMI (non-ST elevated myocardial infarction) Peripheral artery disease Peripheral vascular disease Pulmonary fibrosis Ulcerative colitis Vertigo Family History Father No problems noted. Mother No problems noted. Surgical History H/O carotid endarterectomy H/O colonoscopy History of hip replacement History of liver biopsy History of revision of total hip arthroplasty Hx of lumbar discectomy S/P popliteal-distal bypass Social History Household Members: Spouse Housing: House Are you a primary home care liaison to a significant other at home: No Do you presently have visiting nurse or other home services: Yes ([facility] post recent hospital discharge 01/06/21) Alcohol intake: current Alcohol intake frequency: a few times a week Alcohol type: wine Patient Tobacco Use Status: Current everyday Tobacco user Tobacco use type: Cigarette Cigarettes Per Day: 4 Years Smoked: 62 e-Cigarette/Vaping Use: Currently Using Second Hand Smoke Exposure: No Advance Directives: Yes Advance Directives on File: Yes Advance Directives Date on File: 05/06/20 service: No Current occupational status: retired 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 Meds Allergies Allergy/AdvReac Type Severity Reaction Status Date / Time diazepam [DIAZEPAM] Allergy Severe RASH Verified 04/09/21 15:13 Npcmfhw-[id number]-FhG Reductase Allergy Severe Muscle Pain Verified 04/09/21 15:13 Inhibitor [[id number] REDUCTASE INHIBITOR] Active Medications: Current Medications Melatonin (Melatonin 3 Mg Tablet) 6 mg PO BEDTIME PRN PRN Reason: Insomnia Pharmacy Consult (Consult Rx Perform Med Rec) 1 each MISCELLANE ONCE PRN PRN Reason: Consult order Senna (Sennosides 8.6 Mg Tablet) 17.2 mg PO BEDTIME PRN PRN Reason: Constipation Sodium Chloride (0.9 % Sodium Chloride Flush 3 Ml Syringe) 3 ml IVFLUSH QSHIFT [facility] Home Medications Medication Instructions Recorded Confirmed Last Taken Type ascorbic acid (vitamin C) 1,000 mg 1 g PO DAILY tab 03/09/20 04/29/21 04/29/21 History tablet aspirin 81 mg tablet,delayed 81 mg PO BEDTIME 03/09/20 04/29/21 04/28/21 History release calcitonin (salmon) 200 See Rx Instructions .ROUTE .COMPLEX 03/09/20 04/29/21 04/29/21 History unit/actuation nasal spray cholecalciferol (vitamin D3) 250 250 mcg PO DAILY 03/09/20 04/29/21 04/29/21 History mcg (10,000 unit) capsule clonazepam 0.5 mg tablet 1 mg PO BEDTIME 03/09/20 04/29/21 04/28/21 History donepezil 10 mg tablet 10 mg PO BEDTIME 03/09/20 04/29/21 04/28/21 History memantine 10 mg tablet 10 mg PO BEDTIME 03/09/20 04/29/21 04/28/21 History aclxeqlp-nfr-qbxwu acid 0.4 1 tab PO DAILY 03/09/20 04/29/21 04/29/21 History mg-lycopene 300 mcg-lutein 250 mcg tablet (Centrum Silver) hydrochlorothiazide 12.5 mg capsule 12.5 mg PO QAM 10/02/20 04/29/21 04/29/21 History amlodipine 10 mg tablet 10 mg PO BEDTIME 01/02/21 04/29/21 04/28/21 History lisinopril 5 mg tablet 1 tab PO DAILY 01/02/21 04/29/21 04/29/21 History Physical Exam Vital Signs and Narrative: Vital Signs: Last Vital Signs Temp 95.7 F L 04/29/21 20:39 Pulse 50 04/29/21 20:39 Resp 16 04/29/21 20:39 BP 146/45 H 04/29/21 20:39 Pulse Ox 98 04/29/21 20:39 BMI result Body Mass Index 19.5 Gen: Appears be in no acute distress HEENT: NCAT, Moist mucosa. Pulmonary: Fine crackles at the bases noted CVS: Normal S1-S2 Abdomen: BS+, Soft, Nontender Extremities: Warm well perfused; mild erythema noted below the groin of the upper part of the medial thigh on the left side. Neuro: Alert and awake. Moves all extremities equally but slightly limited on the left hip area attributes to her chronic left hip pain secondary to arthritis/history of replacement. Strength is equal bilaterally in upper extremities. Cranial nerves intact. Speech is clear. Tongue is midline. Results Labs CBC and Chem 7: 04/30/21 05:55 04/30/21 05:55 Labs: Laboratory Results - last 24 hr 04/29/21 04/29/21 04/29/21 16:49 16:49 16:49 MCV 95.9 MCH 30.6 MCHC 31.9 RDW 15.1 Plt Count 115 L D MPV 11.9 Immature Gran % (Auto) 0.5 H Neut % (Auto) 82.7 H Lymph % (Auto) 6.1 L [place] % (Auto) 8.8 Eos % (Auto) 1.7 Baso % (Auto) 0.2 Lymph # (Auto) 0.7 L [place] # (Auto) 1.1 Eos # (Auto) 0.2 Baso # (Auto) 0.0 Abs Immat Gran (auto) 0.06 H Absolute Neuts (auto) 10.0 H Absolute Nucleated RBC 0.000 Nucleated RBC % (auto) 0.0 PT 10.8 INR 1.0 D-Dimer High Sensitivty 290 Anion Gap 12 Estim Creat Clear Calc 24.8 Estimated GFR 30 Random Glucose 100 Lactic Acid Calcium 9.2 Magnesium 2.8 H Total Bilirubin 0.2 AST 166 H ALT 199 H Alkaline Phosphatase 464 H D Total Creatine Kinase 58 Total Protein 5.1 L Albumin 3.3 L Lipase 69 Urine Color Urine Appearance Urine pH Ur Specific [place] Urine Protein Urine Glucose (UA) Urine Ketones Urine Blood Urine Nitrite Ur Leukocyte Esterase Urine RBC Urine WBC Ur Squamous Epith Cells Amorphous Sediment Urine Bacteria Stool Occult Blood COVID-19 (GENIE) COVID-19 Clin Com Blood Type Antibody Screen Crossmatch Enhanced Crossmatch 04/29/21 04/29/21 04/29/21 16:49 16:49 17:21 MCV MCH MCHC RDW Plt Count MPV Immature Gran % (Auto) Neut % (Auto) Lymph % (Auto) [place] % (Auto) Eos % (Auto) Baso % (Auto) Lymph # (Auto) Deuel # (Auto) Eos # (Auto) Baso # (Auto) Abs Immat Gran (auto) Absolute Neuts (auto) Absolute Nucleated RBC Nucleated RBC % (auto) PT INR D-Dimer High Sensitivty Anion Gap Estim Creat Clear Calc Estimated GFR Random Glucose Lactic Acid 0.3 L Calcium Magnesium Total Bilirubin AST ALT Alkaline Phosphatase Total Creatine Kinase Total Protein Albumin Lipase Urine Color Urine Appearance Urine pH Ur Specific [place] Urine Protein Urine Glucose (UA) Urine Ketones Urine Blood Urine Nitrite Ur Leukocyte Esterase Urine RBC Urine WBC Ur Squamous Epith Cells Amorphous Sediment Urine Bacteria Stool Occult Blood COVID-19 (GENIE) Negative COVID-19 Clin Com See Note Blood Type B Positive Antibody Screen NEGATIVE Crossmatch See Detail Enhanced Crossmatch See Detail 04/29/21 04/29/21 17:22 17:35 MCV MCH MCHC RDW Plt Count MPV Immature Gran % (Auto) Neut % (Auto) Lymph % (Auto) [place] % (Auto) Eos % (Auto) Baso % (Auto) Lymph # (Auto) Deuel # (Auto) Eos # (Auto) Baso # (Auto) Abs Immat Gran (auto) Absolute Neuts (auto) Absolute Nucleated RBC Nucleated RBC % (auto) PT INR D-Dimer High Sensitivty Anion Gap Estim Creat Clear Calc Estimated GFR Random Glucose Lactic Acid Calcium Magnesium Total Bilirubin AST ALT Alkaline Phosphatase Total Creatine Kinase Total Protein Albumin Lipase Urine Color YELLOW Urine Appearance HAZY Urine pH 5.5 Ur Specific [place] 1.015 Urine Protein 2+ H Urine Glucose (UA) NEG Urine Ketones NEG Urine Blood NEG Urine Nitrite NEG Ur Leukocyte Esterase NEG Urine RBC 0-2 Urine WBC 0 Ur Squamous Epith Cells 1+ Amorphous Sediment 3+ Urine Bacteria NONE Stool Occult Blood POSITIVE COVID-19 (GENIE) COVID-19 Clin Com Blood Type Antibody Screen Crossmatch Enhanced Crossmatch Imaging Radiologist's Impressions: Impressions Abdomen/Pelvis CT 04/29/21 18:34 IMPRESSION: 1. A cause for the patient's diffuse abdominal pain has not been found. 2. There is mild periportal edema and a tiny bit of ascites. 3. Extensive colonic diverticular changes without definite diverticulitis. Some fluid is present in the presacral region Fleischner guidelines were followed. Cervical Spine CT 04/29/21 18:34 IMPRESSION: Degenerative changes. No fracture or dislocation seen. Fleischner guidelines were followed. Chest CTA 04/29/21 18:34 IMPRESSION: 1. No evidence of pulmonary emboli. 2. Bilateral small pleural effusions and increased groundglass changes in the lungs may suggest CHF. 3. There is bibasilar atelectasis without consolidation or worrisome lung masses. VTE: negative Head CT 04/29/21 18:34 IMPRESSION: No acute intracranial findings. Scalp hematoma adjacent to the left frontal bone. Knee X-Ray 04/29/21 18:40 IMPRESSION: No evidence of acute injury. Bilateral degenerative changes seen, left greater than right. Small joint effusions, left greater than right. Knee X-Ray 04/29/21 18:40 IMPRESSION: No evidence of acute injury. Bilateral degenerative changes seen, left greater than right. Small joint effusions, left greater than right. Assessment and Plan (1) Anemia due to blood loss: Status: Acute (2) Hypothermia: Status: Acute (3) MATILDE (acute kidney injury): Status: Acute (4) Abnormal transaminases: Status: Acute (5) First degree heart block: Status: Acute (6) Ecchymosis: Status: Acute Plan 81-year-old female with a past medical history of hypertension, hyperlipidemia, CAD, dementia, CLL, anemia, lives with the family presented to the hospital with a chief complaint of frequent falls/slurring of the speech/shortness of breath/generalized weakness; Noted to have following conditions Recurrent falls: Patient had multiple falls at least 4 at home, unwitnessed, result in head strike; CT head showed no acute intracranial process; CT cervical spine showed no acute findings. CT abdomen showed no acute fin dings. Ecchymosis: Secondary to fall/injury. Patient noted to have mildly low platelets of 115. Will continue to monitor. PT/OT Bradycardia: Patient heart rate running in 40s. EKG showed first-degree AV block. Monitor on telemetry. Slurred speech: Concern for CVA. CT head showed no acute findings. Symptoms have been ongoing on for the past 1 week as per the family. but currently resolved. Exam grossly non focal. Speech and swallow eval. Neurology consult. Dysphagia screen Altered mental status: Patient has baseline dementia on donepezil/memantine at home. Per family patient is more confused than her baseline. Supportive care. Likely toxic metabolic encephalopathy. Improving. Almost back to baseline as per the patient's family. Hypothermia: Unclear source of infection. Urinalysis negative. Chest x-ray showed no evidence of pneumonia. Empirically continue antibiotics Zosyn. Patient on Donal Hugger. Body temperature improving. Positive D-dimer: CT chest showed a no evidence of pulmonary embolism. Will also obtain venous duplex. CKI: baseline creatinine around 1.5. Patient being transfused blood. Monitor renal function. Avoid nephrotoxins. Transaminitis: CT abdomen showed no acute gallbladder pathology, liver is normal in size and shape. Will obtain hepatitis panel. CHF: Patient currently saturating 98% on room air. Will obtain echocardiogram. CT chest showed bilateral small pleural effusions/findings concerning for CHF. Anemia: Secondary to blood loss from GI bleed. IV ppi. GI consult. Patient hemoglobin on presentation is 5.9. Patient being transfused 2 units of blood. GI consult. Groin rash: Unclear etiology. Will continue to monitor. Circumferential with clear demarcations. Nonblanching. No scales noted.non tender/not warm. History of bilateral knee pain: X-ray showed no acute injury. Noted to have small joint effusions. History of hypertension: Patient's home carvedilol held due to bradycardia. Held home hydralazine/hydrochlorothiazide/amlodipine for now. History of dementia: Continue home done for self, memantine History of CLL: Patient on evolocumab DVT prophylaxis: Cannot use pharmacologic agent given severe anemia/GI bleed. Unable to use SCD boots given bilateral leg severe ecchymosis. Code status: DNR/DNI Discussed with the patient's family at bedside about the critical nature of the patient's current health situation. Explained about the plan as mentioned jude navarro, expressed agreement. Quality Stroke Does the patient have a stroke diagnosis?: No VTE Prior VTE?: No VTE Risk Level:: Medical - moderate - high VTE Device Contraindication: N/A - Device Ordered VTE Drug Contraindication: N/A - Med Ordered
[2021-04-29 21:36] LABS: Thyroid Stimulating Hormone 1.99 uIU/mL (0.32-4.0)
[2021-04-29 22:03] LABS: B Type Natriuretic Peptide 505 pg/mL (<100)
[2021-04-29] MEDS: Memantine HCl 10 MG TABLET PO (22:12)
[2021-04-29] MEDS: clonazePAM 1 MG TABLET PO (22:15)
[2021-04-29] MEDS: Donepezil HCl 10 MG TABLET PO (22:15)
[2021-04-29] MEDS: Piperacillin Sodium/Tazobactam 2.25 GM in 0.9 % Sodium Chloride 50 ML IV (22:17)
--- NOTE | 2021-04-29 22:22 | PC.NURSE ---
per hospitalist, bear hugger can be discontinued when temp reaches 97.0 degrees (F). [place] temp 97.2 this rn discontinuing bear hugger at this time. fresh warm blankets provided. call zafar in reach.
--- NOTE | 2021-04-29 23:00 | PC.NURSE ---
2nd unit of blood started per TAR. pt denies any chest pain or SOB. vss
[2021-04-29 23:32] LABS: T4 Thyroxine 7.6 ug/dL (4.5-12.0)
[2021-04-30] VITALS (12 sets, daily range): BP systolic 160–196; BP diastolic 50–77; PULSE 52–92; RESP 12–17; TEMP 35.7–36.4; O2SAT 94–98
--- NOTE | 2021-04-30 00:45 | PC.NURSE ---
second unit of blood finished transfusing. Hospitalist notified. per hospitalist, wait until blood re-draws before continuing transfusions.
[2021-04-30 02:41] LABS: Hemoglobin 8.6 g/dl (12.0-16.0); Lymphocytes Percent Auto 3.6 % (20-40); PLT CLUMP 1; SCAN SMEAR FLAG 1
[2021-04-30 02:43] LABS: Basophils Percent Auto 0.2 % (0-2); Eosinophils Absolute Auto 0.1 X10*3/uL (0.0-0.4); Eosinophils Percent Auto 0.7 % (0-4); Hematocrit 26.9 % (37.0-47.0); Imm Gran Abs Auto 0.12 X10*3/uL (0.00-0.03); Imm Gran Pct Auto 0.8 % (0.0-0.4); Lymphocytes Absolute Auto 0.5 X10*3/uL (1.2-4.9); MANUAL DIFF FLAG SCAN; Mean Corpuscular Volume 93.7 fL (80.0-98.0); Mean Platelet Volume 11.4 fL (9.4-12.3); Monocytes Absolute Auto 1.5 X10*3/uL (0.1-1.2); Monocytes Percent Auto 10.6 % (2-11); NRBC Pct Auto 0.4 /100WBC (0.0-0.2); Neutrophils Absolute Auto 12.1 x10*3/uL (2.0-8.3); Neutrophils Percent Auto 84.1 % (45-73); Red Blood Count 2.87 X10*6/uL (4.20-5.50); Red Cell Distribution Width 14.6 % (11.0-16.0)
[2021-04-30 02:44] LABS: Platelet Count 119 X10*3/uL (160-400); White Blood Count 14.3 X10*3/uL (4.8-10.8)
[2021-04-30 03:04] LABS: SLIDE REVIEW VERIFIED
[2021-04-30] MEDS: Piperacillin Sodium/Tazobactam 2.25 GM in 0.9 % Sodium Chloride 50 ML IV (03:22)
--- NOTE | 2021-04-30 03:53 | PC.NURSE ---
Hospitalist notified of pt decreased temp. pt placed back on bear hugger per hospitalist order
[2021-04-30 06:07] LABS: Basophils Percent Auto 0.3 % (0-2); NRBC Pct Auto 0.5 /100WBC (0.0-0.2); PLT CLUMP 1; SCAN SMEAR FLAG 1
[2021-04-30 06:09] LABS: Eosinophils Absolute Auto 0.1 X10*3/uL (0.0-0.4); Hematocrit 26.4 % (37.0-47.0); Hemoglobin 8.4 g/dl (12.0-16.0); Imm Gran Abs Auto 0.08 X10*3/uL (0.00-0.03); Imm Gran Pct Auto 0.7 % (0.0-0.4); Lymphocytes Absolute Auto 0.7 X10*3/uL (1.2-4.9); Lymphocytes Percent Auto 5.8 % (20-40); Mean Corpuscular HGB Conc 31.8 g/dl (31.0-35.0); Mean Corpuscular Volume 94.3 fL (80.0-98.0); Mean Platelet Volume 11.3 fL (9.4-12.3); Monocytes Absolute Auto 0.7 X10*3/uL (0.1-1.2); Monocytes Percent Auto 5.7 % (2-11); Neutrophils Percent Auto 86.5 % (45-73); Platelet Count 119 X10*3/uL (160-400); Red Cell Distribution Width 14.6 % (11.0-16.0); White Blood Count 11.6 X10*3/uL (4.8-10.8)
[2021-04-30 06:10] LABS: MANUAL DIFF FLAG NO
[2021-04-30 06:42] LABS: Anion Gap 12 (12-20); Blood Urea Nitrogen 65 mg/dL (9-16); Calcium 8.5 mg/dL (8.4-10.2); Carbon Dioxide 18 mmol/L (22-29); Chloride 119 mmol/L (96-108); Cholesterol 122 mg/dL; Creatinine Clr Calc Pharmacy 27.1; Estimated Glomerular Filt Rate 33; Glucose Random 82 mg/dL (60-115); HDL Cholesterol 79 mg/dL; LDL Cholesterol Calculated 37 mg/dl; Potassium 4.8 mmol/L (3.3-5.1); Sodium 144 mmol/L (135-145); Triglycerides 31 mg/dL
--- NOTE | 2021-04-30 07:42 | PC.NURSE ---
Addendum entered by Gem Saleh RN 04/30/21 07:43: Pt abd soft and non-tender. Darby catheter noted and draining. 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 NSR to sinus tamika noted and lungs diminished. Pt remains on 2L N/C..
[2021-04-30] MEDS: amLODIPine Besylate 5 MG TABLET PO (08:05)
[2021-04-30] MEDS: Pantoprazole Sodium 40 MG/10 ML VIAL IVPUSH ×2 (08:05→16:39)
[2021-04-30] MEDS: Multivitamin TABLET 1 TAB PO (08:05)
[2021-04-30] MEDS: Cholecalciferol (Vitamin D3) 25 MCG TABLET 250 MCG PO (09:59)
--- NOTE | 2021-04-30 10:27 | P.CNNE_ITS ---
History of Present Illness Data of Consult Service Date: 04/30/21 Primary Care Provider: Walter Braun MD [facility] Reason for consult: Syncope 81 years old woman with underlying history of dementia brought to hospital after she fell and hit her head. Apparently she had been falling losing her balance. This time she was in bathroom when something happened. She had no recollection of what had happened. Apparently she hit her head on left side of head. There was no documentation of any seizure-like episode. There was no complaint of any difficulty speaking change in her vision Review of Systems Review of Systems: No recent cold or flu-like illness PMFSH Past Medical History Medical History Anemia CLL (chronic lymphocytic leukemia) Coronary artery calcification seen on CAT scan COVID-19 vaccine series completed Dementia Essential hypertension Hx of reduction of closed dislocation Hyperlipidemia NSTEMI (non-ST elevated myocardial infarction) Peripheral artery disease Peripheral vascular disease Pulmonary fibrosis Ulcerative colitis Vertigo Family History Family History Father No problems noted. Mother No problems noted. Surgical History Surgical History H/O carotid endarterectomy H/O colonoscopy History of hip replacement History of liver biopsy History of revision of total hip arthroplasty Hx of lumbar discectomy S/P popliteal-distal bypass Social History Social History Household Members: Spouse Housing: House Are you a primary medicare biller to a significant other at home: No Do you presently have visiting nurse or other home services: Yes ([facility] post recent hospital discharge 01/06/21) Alcohol intake: current Alcohol intake frequency: a few times a week Alcohol type: wine Patient Tobacco Use Status: Current everyday Tobacco user Tobacco use type: Cigarette Cigarettes Per Day: 4 Years Smoked: 62 e-Cigarette/Vaping Use: Currently Using Second Hand Smoke Exposure: No Advance Directives: Yes Advance Directives on File: Yes Advance Directives Date on File: 05/06/20 service: No Current occupational status: retired 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 Meds Allergies Allergy/AdvReac Type Severity Reaction Status Date / Time diazepam [DIAZEPAM] Allergy Severe RASH Verified 04/09/21 15:13 [id number]-ClY Reductase Allergy Severe Muscle Pain Verified 04/09/21 15:13 Inhibitor [[id number] REDUCTASE INHIBITOR] Active Medications: Current Medications Amlodipine Besylate (Amlodipine Besylate 5 Mg Tablet) 5 mg PO DAILY [facility]; Protocol Last Admin: 04/30/21 08:05 Dose: 5 mg Documented by: Clonazepam (Clonazepam 1 Mg Tablet) 1 mg PO BEDTIME [facility] Last Admin: 04/29/21 22:15 Dose: 1 mg Documented by: Donepezil HCl (Donepezil Hcl 10 Mg Tablet) 10 mg PO BEDTIME [facility] Last Admin: 04/29/21 22:15 Dose: 10 mg Documented by: Melatonin (Melatonin 3 Mg Tablet) 6 mg PO BEDTIME PRN PRN Reason: Insomnia Memantine (Memantine Hcl 10 Mg Tablet) 10 mg PO BEDTIME [facility] Last Admin: 04/29/21 22:12 Dose: 10 mg Documented by: Multivitamins/Vitamin C (Multivitamin Tablet) 1 tab PO DAILY [facility] Last Admin: 04/30/21 08:05 Dose: 1 tab Documented by: Pantoprazole Sodium (Pantoprazole Sodium 40 Mg/10 Ml Vial) 40 mg IVPUSH BID@0630,1630 [facility] Last Admin: 04/30/21 08:05 Dose: 40 mg Documented by: Pharmacy Consult (Consult Rx Perform Med Rec) 1 each MISCELLANE ONCE PRN PRN Reason: Consult order Senna (Sennosides 8.6 Mg Tablet) 17.2 mg PO BEDTIME PRN PRN Reason: Constipation Sodium Chloride (0.9 % Sodium Chloride Flush 3 Ml Syringe) 3 ml IVFLUSH QSHIFT [facility] Last Admin: 04/30/21 07:41 Dose: Not Given Documented by: Vitamin D (Cholecalciferol (Vitamin D3) 25 Mcg Tablet) 250 mcg PO DAILY [facility] Last Admin: 04/30/21 09:59 Dose: 250 mcg Documented by: Home Medications Medication Instructions Recorded Confirmed Last Taken Type ascorbic acid (vitamin C) 1,000 mg 1 g PO DAILY tab 03/09/20 04/29/21 04/29/21 History tablet aspirin 81 mg tablet,delayed 81 mg PO BEDTIME 03/09/20 04/29/21 04/28/21 History release calcitonin (salmon) 200 See Rx Instructions .ROUTE .COMPLEX 03/09/20 04/29/21 04/29/21 History unit/actuation nasal spray cholecalciferol (vitamin D3) 250 250 mcg PO DAILY 03/09/20 04/29/21 04/29/21 History mcg (10,000 unit) capsule clonazepam 0.5 mg tablet 1 mg PO BEDTIME 03/09/20 04/29/21 04/28/21 History donepezil 10 mg tablet 10 mg PO BEDTIME 03/09/20 04/29/21 04/28/21 History memantine 10 mg tablet 10 mg PO BEDTIME 03/09/20 04/29/21 04/28/21 History vwpifvxi-gtx-[place] acid 0.4 1 tab PO DAILY 03/09/20 04/29/21 04/29/21 History mg-lycopene 300 mcg-lutein 250 mcg tablet (Centrum Silver) hydrochlorothiazide 12.5 mg capsule 12.5 mg PO QAM 10/02/20 04/29/21 04/29/21 History amlodipine 10 mg tablet 10 mg PO BEDTIME 01/02/21 04/29/21 04/28/21 History lisinopril 5 mg tablet 1 tab PO DAILY 01/02/21 04/29/21 04/29/21 History Physical Exam Vital Signs: Vital Signs: Last Vital Signs Temp 97.3 F 04/30/21 08:04 Pulse 53 04/30/21 09:43 Resp 14 04/30/21 09:43 BP 173/53 H 04/30/21 09:43 Pulse Ox 97 04/30/21 09:43 BMI result Body Mass Index 19.5 Neuro: Other: Alert and awake with normal spontaneity of speech fluency comprehension and affect. Pupils were 3 mm round reactive to light. Extraocular muscles were intact. Visual motta are full to threat. There was mild left-sided facial weakness. There was no pronator drift. Qeqbli-rf-jpnt testing was okay. Deep tendon reflexes were absent with flat plantars. Results Labs CBC & Chem 7: 04/30/21 05:55 04/30/21 05:55 Labs: Short CBC 04/29/21 04/30/21 04/30/21 Range/Units 16:49 02:38 05:55 WBC 12.1 H 14.3 H 11.6 H (4.8-10.8) X10*3/uL Hgb 5.9 L* D 8.6 L D 8.4 L (12.0-16.0) g/dl Hct 18.5 L* D 26.9 L D 26.4 L (37.0-47.0) % Plt Count 115 L D 119 L 119 L (160-400) X10*3/uL BMP 04/29/21 04/30/21 16:49 05:55 Sodium 142 144 Potassium 4.9 4.8 Chloride 115 H 119 H Carbon Dioxide 20 L 18 L BUN 75 H D 65 H Creatinine 1.64 H 1.50 H Calcium 9.2 8.5 D Cardiac Enzymes 04/29/21 Range/Units 16:49 Total Creatine Kinase 58 (26-140) U/L Liver Function 04/29/21 Range/Units 16:49 Total Bilirubin 0.2 (0.0-1.0) mg/dL AST 166 H (5-31) U/L ALT 199 H (0-31) U/L Alkaline Phosphatase 464 H D (39-117) U/L Albumin 3.3 L (3.5-5.0) g/dL Urine 04/29/21 Range/Units 17:22 Urine Color YELLOW Urine Appearance HAZY Urine pH 5.5 (5.0-8.0) Ur Specific [place] 1.015 (1.005-1.025) Urine Protein 2+ H (NEG-TRACE) MG/DL Urine Glucose (UA) NEG (NEG) MG/DL Head CT revealed moderately severe diffuse cerebral atrophy and mild chronic microvascular ischemic changes. Assessment and Plan (1) Multifactorial gait disorder: Status: Acute (2) Syncope and collapse: Status: Acute 81 years old woman with complaints of losing balance and falling probably from combination of factors including significant degenerative dementia microvascular disease arthritis and neuropathy. She had an episode where she bumped her head in the bathroom. She had no recollection of that event. Amnesia could be due to concussion but it could also be the part of the episode resulting in syncope. I recommend obtaining an EEG to rule out possibility of seizure disorder. Procedures Date of Service Date of Service: 04/30/21
--- NOTE | 2021-04-30 11:14 | PC.NURSE ---
Verified with MD John, pt not to be receiving any more blood transfusions at this time.
--- NOTE | 2021-04-30 12:36 | MHC.SLORD ---
Speech Language Pathology Order Status: Order for CONTENT MANAGER consult received 04/29/21. CONTENT MANAGER attempted to see patient x2 this morning- Patient receiving care, unavailable. Will return this afternoon.
--- NOTE | 2021-04-30 12:43 | PC.NURSE ---
Pt Alert, oriented to person, place and situation only at this time. SB w/1st degree AV block on the monitor, LCA, abd soft, non tender, +BS, +PERRLA, neuros intact, peacock in place with clear yellow urine output, rash noted to groin, barrier cream applied. Hematoma to L forhead, bruising to L eye, bruising also noted to BLE from knees to ankles. Call zafar within reach. Will continue to monitor.
[2021-04-30 12:57] LABS: Hematocrit 25.8 % (37.0-47.0); Hemoglobin 8.4 g/dl (12.0-16.0); Immature Retic Fraction 21.6 % (3.0-15.9); Retic HGB Equivalent 32.8 pg (30.0-35.0); Reticulocyte Percent 2.2 % (0.5-1.8); Reticulocytes Absolute 0.061 X10*6/uL (0.026-0.095)
[2021-04-30 13:07] LABS: Lactate Dehydrogenase 520 U/L (122-220)
--- NOTE | 2021-04-30 14:44 | HO.PM.IMPN ---
Subjective Subjective Date of Service: 05/01/21 Interval History: Patient awake alert this morning offers no acute complaints of epigastric pain, denies hematemesis or melena, denies headache, lightheadedness or dizziness, Review of Systems Review of Systems: Yes all other systems are reviewed and are negative Physical Exam Vital Signs: Vital Signs: Last Vital Signs Temp 97.3 F 04/30/21 08:04 Pulse 84 04/30/21 10:45 Resp 12 04/30/21 10:45 BP 162/56 H 04/30/21 10:45 Pulse Ox 96 04/30/21 10:45 BMI result Body Mass Index 19.5 Const: Other: General resting comfortably in no acute distress. HEENT bruise left eye, small hematoma left scalp Neck supple no JVD. CVS regular rate rhythm, Respiratory lungs clear to auscultation, no respiratory distress, no wheeze, no rhonchi. Gastrointestinal abdomen soft, nontender, bowel sounds audible Extremities no edema. Neuro nonfocal patient moving all 4 extremity speech clear. Skin bilateral lower extremity bruising, abrasion to both knees Objective Data Active Medications Amlodipine Besylate (Amlodipine Besylate 5 Mg Tablet) 5 mg PO DAILY [facility]; Protocol Last Admin: 04/30/21 08:05 Dose: 5 mg Documented by: YULISSA Clonazepam (Clonazepam 1 Mg Tablet) 1 mg PO BEDTIME [facility] Last Admin: 04/29/21 22:15 Dose: 1 mg Documented by: TARAS Donepezil HCl (Donepezil Hcl 10 Mg Tablet) 10 mg PO BEDTIME [facility] Last Admin: 04/29/21 22:15 Dose: 10 mg Documented by: TARAS Melatonin (Melatonin 3 Mg Tablet) 6 mg PO BEDTIME PRN PRN Reason: Insomnia Memantine (Memantine Hcl 10 Mg Tablet) 10 mg PO BEDTIME [facility] Last Admin: 04/29/21 22:12 Dose: 10 mg Documented by: TARAS Multivitamins/Vitamin C (Multivitamin Tablet) 1 tab PO DAILY [facility] Last Admin: 04/30/21 08:05 Dose: 1 tab Documented by: YULISSA Pantoprazole Sodium (Pantoprazole Sodium 40 Mg/10 Ml Vial) 40 mg IVPUSH BID@0630,1630 [facility] Last Admin: 04/30/21 08:05 Dose: 40 mg Documented by: YULISSA Pharmacy Consult (Consult Rx Perform Med Rec) 1 each MISCELLANE ONCE PRN PRN Reason: Consult order Senna (Sennosides 8.6 Mg Tablet) 17.2 mg PO BEDTIME PRN PRN Reason: Constipation Sodium Chloride (0.9 % Sodium Chloride Flush 3 Ml Syringe) 3 ml IVFLUSH QSHIFT [facility] Last Admin: 04/30/21 07:41 Dose: Not Given Documented by: YULISSA Non-Admin Reason: Med Not Available Vitamin D (Cholecalciferol (Vitamin D3) 25 Mcg Tablet) 250 mcg PO DAILY [facility] Last Admin: 04/30/21 09:59 Dose: 250 mcg Documented by: YULISSA Labs CBC & Chem 7: 05/01/21 05:58 05/01/21 05:58 Labs: Laboratory Results - last 24 hr 04/29/21 04/29/21 04/29/21 16:49 16:49 16:49 MCV 95.9 MCH 30.6 MCHC 31.9 RDW 15.1 Plt Count 115 L D MPV 11.9 Immature Gran % (Auto) 0.5 H Neut % (Auto) 82.7 H Lymph % (Auto) 6.1 L [place] % (Auto) 8.8 Eos % (Auto) 1.7 Baso % (Auto) 0.2 Lymph # (Auto) 0.7 L [place] # (Auto) 1.1 Eos # (Auto) 0.2 Baso # (Auto) 0.0 Abs Immat Gran (auto) 0.06 H Absolute Neuts (auto) 10.0 H Absolute Nucleated RBC 0.000 Nucleated RBC % (auto) 0.0 Smear Tech's Comments Absolute Retic Percent Retic Immature Retic Fraction Retic Hgb Equivalent PT 10.8 INR 1.0 D-Dimer High Sensitivty 290 Anion Gap 12 Estim Creat Clear Calc 24.8 Estimated GFR 30 Random Glucose 100 Lactic Acid Calcium 9.2 Magnesium 2.8 H Total Bilirubin 0.2 AST 166 H ALT 199 H Alkaline Phosphatase 464 H D Lactate Dehydrogenase Total Creatine Kinase 58 B-Natriuretic Peptide Total Protein 5.1 L Albumin 3.3 L Triglycerides Cholesterol LDL Cholesterol, Calc HDL Cholesterol Lipase 69 TSH 1.99 Thyroxine (T4) 7.6 Urine Color Urine Appearance Urine pH Ur Specific [place] Urine Protein Urine Glucose (UA) Urine Ketones Urine Blood Urine Nitrite Ur Leukocyte Esterase Urine RBC Urine WBC Ur Squamous Epith Cells Amorphous Sediment Urine Bacteria Stool Occult Blood COVID-19 (GENIE) COVID-19 Clin Com Blood Type Antibody Screen Crossmatch Enhanced Crossmatch 04/29/21 04/29/21 04/29/21 16:49 16:49 16:49 MCV MCH MCHC RDW Plt Count MPV Immature Gran % (Auto) Neut % (Auto) Lymph % (Auto) [place] % (Auto) Eos % (Auto) Baso % (Auto) Lymph # (Auto) [place] # (Auto) Eos # (Auto) Baso # (Auto) Abs Immat Gran (auto) Absolute Neuts (auto) Absolute Nucleated RBC Nucleated RBC % (auto) Smear Tech's Comments Absolute Retic Percent Retic Immature Retic Fraction Retic Hgb Equivalent PT INR D-Dimer High Sensitivty Anion Gap Estim Creat Clear Calc Estimated GFR Random Glucose Lactic Acid 0.3 L Calcium Magnesium Total Bilirubin AST ALT Alkaline Phosphatase Lactate Dehydrogenase Total Creatine Kinase B-Natriuretic Peptide Cancelled Total Protein Albumin Triglycerides Cholesterol LDL Cholesterol, Calc HDL Cholesterol Lipase TSH Thyroxine (T4) Urine Color Urine Appearance Urine pH Ur Specific [place] Urine Protein Urine Glucose (UA) Urine Ketones Urine Blood Urine Nitrite Ur Leukocyte Esterase Urine RBC Urine WBC Ur Squamous Epith Cells Amorphous Sediment Urine Bacteria Stool Occult Blood COVID-19 (GENIE) Negative COVID-19 Clin Com See Note Blood Type Antibody Screen Crossmatch Enhanced Crossmatch 04/29/21 04/29/21 04/29/21 17:21 17:22 17:35 MCV MCH MCHC RDW Plt Count MPV Immature Gran % (Auto) Neut % (Auto) Lymph % (Auto) [place] % (Auto) Eos % (Auto) Baso % (Auto) Lymph # (Auto) [place] # (Auto) Eos # (Auto) Baso # (Auto) Abs Immat Gran (auto) Absolute Neuts (auto) Absolute Nucleated RBC Nucleated RBC % (auto) Smear Tech's Comments Absolute Retic Percent Retic Immature Retic Fraction Retic Hgb Equivalent PT INR D-Dimer High Sensitivty Anion Gap Estim Creat Clear Calc Estimated GFR Random Glucose Lactic Acid Calcium Magnesium Total Bilirubin AST ALT Alkaline Phosphatase Lactate Dehydrogenase Total Creatine Kinase B-Natriuretic Peptide Total Protein Albumin Triglycerides Cholesterol LDL Cholesterol, Calc HDL Cholesterol Lipase TSH Thyroxine (T4) Urine Color YELLOW Urine Appearance HAZY Urine pH 5.5 Ur Specific [place] 1.015 Urine Protein 2+ H Urine Glucose (UA) NEG Urine Ketones NEG Urine Blood NEG Urine Nitrite NEG Ur Leukocyte Esterase NEG Urine RBC 0-2 Urine WBC 0 Ur Squamous Epith Cells 1+ Amorphous Sediment 3+ Urine Bacteria NONE Stool Occult Blood POSITIVE COVID-19 (GENIE) COVID-19 Clin Com Blood Type B Positive Antibody Screen NEGATIVE Crossmatch See Detail Enhanced Crossmatch See Detail 04/29/21 04/30/21 04/30/21 21:33 02:38 05:55 MCV 93.7 94.3 MCH 30.0 30.0 MCHC 32.0 31.8 RDW 14.6 14.6 Plt Count 119 L 119 L MPV 11.4 11.3 Immature Gran % (Auto) 0.8 H 0.7 H Neut % (Auto) 84.1 H 86.5 H Lymph % (Auto) 3.6 L 5.8 L [place] % (Auto) 10.6 5.7 Eos % (Auto) 0.7 1.0 Baso % (Auto) 0.2 0.3 Lymph # (Auto) 0.5 L 0.7 L [place] # (Auto) 1.5 H 0.7 Eos # (Auto) 0.1 0.1 Baso # (Auto) 0.0 0.0 Abs Immat Gran (auto) 0.12 H 0.08 H Absolute Neuts (auto) 12.1 H 10.0 H Absolute Nucleated RBC 0.060 H 0.060 H Nucleated RBC % (auto) 0.4 H 0.5 H Smear Tech's Comments VERIFIED Absolute Retic Percent Retic Immature Retic Fraction Retic Hgb Equivalent PT INR D-Dimer High Sensitivty Anion Gap Estim Creat Clear Calc Estimated GFR Random Glucose Lactic Acid Calcium Magnesium Total Bilirubin AST ALT Alkaline Phosphatase Lactate Dehydrogenase Total Creatine Kinase B-Natriuretic Peptide 505 H Total Protein Albumin Triglycerides Cholesterol LDL Cholesterol, Calc HDL Cholesterol Lipase TSH Thyroxine (T4) Urine Color Urine Appearance Urine pH Ur Specific [place] Urine Protein Urine Glucose (UA) Urine Ketones Urine Blood Urine Nitrite Ur Leukocyte Esterase Urine RBC Urine WBC Ur Squamous Epith Cells Amorphous Sediment Urine Bacteria Stool Occult Blood COVID-19 (GENIE) COVID-19 Clin Com Blood Type Antibody Screen Crossmatch Enhanced Crossmatch 04/30/21 04/30/21 04/30/21 05:55 05:55 12:21 MCV MCH MCHC RDW Plt Count MPV Immature Gran % (Auto) Neut % (Auto) Lymph % (Auto) [place] % (Auto) Eos % (Auto) Baso % (Auto) Lymph # (Auto) [place] # (Auto) Eos # (Auto) Baso # (Auto) Abs Immat Gran (auto) Absolute Neuts (auto) Absolute Nucleated RBC Nucleated RBC % (auto) Smear Tech's Comments Absolute Retic 0.061 Percent Retic 2.2 H Immature Retic Fraction 21.6 H Retic Hgb Equivalent 32.8 PT INR D-Dimer High Sensitivty Anion Gap 12 Estim Creat Clear Calc 27.1 Estimated GFR 33 Random Glucose 82 Lactic Acid Calcium 8.5 D Magnesium Total Bilirubin AST ALT Alkaline Phosphatase Lactate Dehydrogenase Total Creatine Kinase B-Natriuretic Peptide Total Protein Albumin Triglycerides 31 Cholesterol 122 D LDL Cholesterol, Calc 37 HDL Cholesterol 79 D Lipase TSH Thyroxine (T4) Urine Color Urine Appearance Urine pH Ur Specific [place] Urine Protein Urine Glucose (UA) Urine Ketones Urine Blood Urine Nitrite Ur Leukocyte Esterase Urine RBC Urine WBC Ur Squamous Epith Cells Amorphous Sediment Urine Bacteria Stool Occult Blood COVID-19 (GENIE) COVID-Belly Ballot Blood Type Antibody Screen Crossmatch Enhanced Crossmatch 04/30/21 12:21 MCV MCH MCHC RDW Plt Count MPV Immature Gran % (Auto) Neut % (Auto) Lymph % (Auto) [place] % (Auto) Eos % (Auto) Baso % (Auto) Lymph # (Auto) [place] # (Auto) Eos # (Auto) Baso # (Auto) Abs Immat Gran (auto) Absolute Neuts (auto) Absolute Nucleated RBC Nucleated RBC % (auto) Smear Tech's Comments Absolute Retic Percent Retic Immature Retic Fraction Retic Hgb Equivalent PT INR D-Dimer High Sensitivty Anion Gap Estim Creat Clear Calc Estimated GFR Random Glucose Lactic Acid Calcium Magnesium Total Bilirubin AST ALT Alkaline Phosphatase Lactate Dehydrogenase 520 H Total Creatine Kinase B-Natriuretic Peptide Total Protein Albumin Triglycerides Cholesterol LDL Cholesterol, Calc HDL Cholesterol Lipase TSH Thyroxine (T4) Urine Color Urine Appearance Urine pH Ur Specific [place] Urine Protein Urine Glucose (UA) Urine Ketones Urine Blood Urine Nitrite Ur Leukocyte Esterase Urine RBC Urine WBC Ur Squamous Epith Cells Amorphous Sediment Urine Bacteria Stool Occult Blood COVID-19 (GENIE) COVID-19 [facility] Blood Type Antibody Screen Crossmatch Enhanced Crossmatch Assessment and Plan (1) Dementia: Status: Acute Plan 81-year-old female with a past medical history of hypertension, hyperlipidemia, CAD, dementia, CLL, anemia, lives with the family presented to the hospital with a chief complaint of frequent falls/slurring of the speech/shortness of breath/generalized weakness; Noted to have following conditions Recurrent falls question syncope: multiple unwitnessed falls at at home, 1 fall with head injury, CT head showed no acute intracranial process,CT cervical spine showed no acute findings.? CT abdomen showed no acute findings.? Knee x-rays no acute fracture Noted to have generalized weakness and slurred speech of 1 week duration Falls likely related to anemia Seen by Dr. Gunderson he recommend EEG to rule out seizure LDL 37 total cholesterol 122 Hold statin, hold aspirin due to anemia and heme-positive stool Ecchymosis: Secondary to fall/injury.? Patient noted to have mildly low platelets of 115.? Will continue to monitor. Follow PT/OT recommendation Acute on chronic Anemia likely multifactorial no acute GI bleed noted Status post 2 units of packed RBC hematocrit improved Will order workup for hemolytic anemia/iron deficiency anemia maybe by tomorrow maybe by tomorrow maybe Follow CBC, await GI input Consult Hematology if noted to have recurrent drop in hematocrit or with concern for hemolysis. Bradycardia:?heart rate in 40s.? EKG showed first-degree AV block, likely related to Coreg and Aricept, will DC Coreg,monitor on telemetry. Acute toxic metabolic encephalopathy with baseline dementia Resolved patient seems to be at baseline awake alert answering questions appropriately Hypothermia:? No infection.? Urinalysis negative.? Chest x-ray showed no evidence of pneumonia. DC antibiotic .? Treated with Donal Hugge, temperature normalized Positive D-dimer:? CT chest showed no evidence of pulmonary embolism,venous duplex showed no new DVT. CKI stage III creatinine close to baseline around 1.5.?Avoid nephrotoxins. Transaminitis:??CT abdomen showed no acute gallbladder pathology, liver is normal in size and shape, prior hepatitis serology negative, follow LFTs CHF:??Patient currently saturating 98% on room air.? Will obtain echocardiogram.? CT chest showed bilateral small pleural effusions/findings concerning for CHF. Groin rash:? Unclear etiology.? Will continue to monitor.? Circumferential with clear demarcations.? Nonblanching.? No scales noted.non tender/not warm. Hypertension:? Elevated blood pressure Patient's home?carvedilol held?due to bradycardia, hold hydrochlorothiazide due to mild dehydration, will resume amlodipine and hydralazine follow BP closely History of dementia probably Alzheimer's Continue home medications, Aricept and memantine CLL outpatient follow-up with Oncology DVT prophylaxis:? Will place on heparin once anemia and platelet stabilizes, unable to use subcutaneous boots given bilateral leg severe ecchymosis. Code status: DNR/DNI Patient need inpatient hospitalization due to acute drop in hematocrit need further GI and hematological workup Quality Stroke Does the patient have a stroke diagnosis?: No VTE Prior VTE?: No VTE Risk Level:: Medical - moderate - high VTE Device Contraindication: N/A - Device Ordered VTE Drug Contraindication: N/A - Med Ordered
--- NOTE | 2021-04-30 14:58 | MHC.CM.PN ---
CM MET WITH PT AND HER WHO WAS AT BEDSIDE PT LIVES WITH HER AND ADULT SON AND IS INDEPENDENT WITH CARE PT USES A WALKER AND [facility] DEPENDING ON WHAT SHE IS DOING PT DOES NOT HAVE SERVICES AT THIS TIME BUT WAS RECENTLY DISCHARGED FROM [facility] AND WOULD WANT THEM AGAIN IF INDICATED AT DC PT HAS A HCP ON FILE AND CONFIRMS HER PCP IS MIRI VALDIVIA PT IS VACCINATED AGAINST COVID-19 WITH PFIZER X 3 IMM DELIVERED, COPY SENT TO [facility] CURRENT DC PLAN IS HOME VS HOME WITH [facility] FAMILY TO TRANSPORT
[2021-04-30 15:54] LABS: Iron 254 mcg/dL (30-160)
--- NOTE | 2021-04-30 15:57 | MHC.SL.SWA ---
Speech Pathologist Impression: WFL Risk of Aspiration Due to: N/A Dysphasia Diet Status: UPGRADE Liquid Consistency and Strategies for Safe Swallow: Liquid Intake Recommendation: Thin Liquid Intake Strategies: Small Sips Solid Food Consistency: Dietary Recommendations: Regular Additional Modifications to Solid Foods: Patient denies difficulty swallowing. She displayed no overt s/s of aspiration with PO trials. Recommend UPGRADE to REGULAR solids and THIN liquids, pills WHOLE with LIQUID. Per MD, patient will be NPO after midnight for endoscopy tomorrow. Further ST intervention is no longer warranted. Please re-refer with any further concern. Oral Medication Intake: Whole with Liquid Please contact the pharmacy regarding appropriate crushable or liquid drug formulations that are available whenever modified delivery is recommended. Compensatory Strategies and Precautions to be Taken for Safe Swallow: Sitting Upright (90 deg) Small Bites and Sips Alternate Liquids/Solids Rate of Ingestion Change Supervision While Eating and Drinking for Safe Swallow: Intermittent Supervision Swallowing Recommended Treatments: Compens. Strategy Educat. Recommendation for Speech: NA:Typical Evaluation Rod Tape Operator Clinican/Clinical Fellow: No Supervisory Statement: I have reviewed and agree with the student/clinical fellow's documentation: N/A Speech Language Pathologist: Kecia Silvestre M.A., CCC-ELECTRIC RAZOR ASSEMBLER
[2021-04-30 16:13] LABS: Total Iron Binding Capacity < 271 mcg/dL (228-428); Unsaturated Iron Binding < 17 ug/dL
--- NOTE | 2021-04-30 16:13 | MHC.SHP ---
Pre-Procedural Eval Section A Date of Service: 04/30/21 The patient is an INPATIENT: Yes Changes since office visit: No Cold of Flu in the past 2 weeks, No New Medical Problems, No Changes in Medication and No Patient answered all questions The History & Physical has been completed within 30 days and I have reviewed it.: Yes Section B Chief Complaint: AMS Allergies: Allergies Allergy/AdvReac Type Severity Reaction Status Date / Time diazepam [DIAZEPAM] Allergy Severe RASH Verified 04/09/21 15:13 [id number] Reductase Allergy Severe Muscle Pain Verified 04/09/21 15:13 Inhibitor [[id number] REDUCTASE INHIBITOR] Plan I have reviewed the history and physical and performed a pertinent physical examination on my patient. No changes have occurred unless specified.
--- NOTE | 2021-04-30 16:14 | PM.EVENT ---
Event Note Date of Service: 04/30/21 Event Note: GI EGD scheduled for 05/01 to further evaluate anemia and heme positive stools
[2021-04-30 16:17] LABS: Ferritin 462 ng/mL (10-250)
[2021-04-30] MEDS: 0.9 % Sodium Chloride Flush 3 ML SYRINGE IVFLUSH ×2 (16:39→22:09)
[2021-04-30] MEDS: hydrALAZINE HCl 50 MG TABLET 100 MG PO ×2 (19:41→22:05)
[2021-04-30] MEDS: Memantine HCl 10 MG TABLET PO (22:03)
[2021-04-30] MEDS: Donepezil HCl 10 MG TABLET PO (22:03)
[2021-04-30] MEDS: clonazePAM 1 MG TABLET PO (22:04)
[2021-05-01] VITALS (12 sets, daily range): BP systolic 137–185; BP diastolic 41–87; PULSE 51–99; RESP 11–22; TEMP 36.1–37.2; O2SAT 92–98
--- NOTE | 2021-05-01 | EEG_ITS ---
This is a 16-channel EEG with an EKG lead. The patient is reported awake and drowsy during the tracing. Background EEG rhythm is low amplitude, fast with no obvious asymmetry or paroxysmal tendency. Photic stimulation does not produce any significant abnormality. No sharp wave spikes or paroxysmal tendency noted. Cardiac lead reveals sinus bradycardia with a rate of about 60 per minute. IMPRESSION: 1. Unremarkable EEG. 2. Sinus bradycardia. MD MARC Smith/CHELY / [id number]
--- NOTE | 2021-05-01 02:08 | CONS_ITS ---
DATE OF SERVICE: 04/30/2021 REFERRING PHYSICIAN: Danny Durand MD REASON FOR CONSULTATION: Anemia and Hemoccult-positive stools. HISTORY OF PRESENT ILLNESS: The patient is a pleasant 81-year-old woman, who was admitted to the hospital after presenting to the emergency room with recurrent falls at home. As part of her evaluation, she was noted to have a hematocrit of 18.5, which was down from 30 in March, approximately 1 month ago. Stools were occult blood positive. The patient is on iron, and states her stools are chronically dark, but has not noticed any sarkis melena. She has no complaints of epigastric pain. She does report seeing a drop of red blood with her bowel movement prior to admission, but has not had any significant GI bleeding. She is on aspirin, but does not take large amounts of NSAIDs. She also has a history of ulcerative colitis treated in the past with sulfasalazine and her last colonoscopy in May of 2013, showed diverticulosis, but no active colitis endoscopically or on biopsies. She received 2 units of packed red blood cells in the emergency department with improvement of her hematocrit to 25.8, and nursing reports no bleeding since admission. PAST MEDICAL HISTORY: 1. Hypertension. 2. Elevated cholesterol. 3. Ulcerative colitis as above. 4. Coronary artery disease/peripheral vascular disease. 5. Pulmonary fibrosis. 6. Dementia. 7. CLL. CURRENT MEDICATIONS: Her current medication list is reviewed in the chart. ALLERGIES: THERE ARE MULTIPLE MEDICATION ALLERGIES THAT ARE REVIEWED. FAMILY HISTORY: This is reviewed with the patient and is noncontributory. SOCIAL HISTORY: There is no current tobacco, alcohol or substance abuse. PAST SURGICAL HISTORY: Carotid endarterectomy, hip replacement, liver biopsy, colonoscopy, disk surgery, and bypass surgery to the lower extremity. REVIEW OF SYSTEMS: This is not reliably obtainable. PHYSICAL EXAMINATION: GENERAL: Shows a pleasant female, lying comfortably in bed. VITAL SIGNS: Reviewed in the electronic medical record and is stable. SKIN: Shows multiple ecchymoses. HEENT: Shows no scleral icterus. NECK: Without lymphadenopathy or thyromegaly. LUNGS: Clear. HEART: Shows a regular rate and rhythm. S1, S2. No murmur. ABDOMEN: Soft without focal masses or tenderness. There is no guarding or rebound. EXTREMITIES: Without edema. LABORATORY DATA: Shows a white blood cell count of 11.6, hematocrit 25.8 this morning. IMPRESSION: Anemia with Hemoccult-positive stools. Her hematocrit dropped significantly from about a month ago, suggesting some acute GI blood loss. I did recommend upper endoscopy for further evaluation. This was discussed with the patient and her family. They understand risks and benefits and agreed to proceed. I agree with treating her with a proton pump inhibitor and monitoring her hematocrit. If her upper endoscopy is negative, she may need further evaluation with a lower GI tract endoscopy. Thanks for asking me to see her. I will follow her in the hospital with you. MD DAYANA Rayo/CHELY / [id number]
--- NOTE | 2021-05-01 04:33 | PC.NURSE ---
This rn took over patient's care at 1900, patient is alert, oriented to self, place, situation, vague on time. Patient offers no complaints at this time, l/s clear, abd soft, peacock catheter draining yellow urine, so signs of active bleeding, vs stable. Call zafar within reach. Patient aware of EGD scheduled for 05/01, patient npo midnight 05/01.
[2021-05-01] MEDS: Pantoprazole Sodium 40 MG/10 ML VIAL IVPUSH ×2 (05:46→15:08)
[2021-05-01 06:26] LABS: Hematocrit 27.5 % (37.0-47.0); Hemoglobin 8.9 g/dl (12.0-16.0); Mean Corpuscular HGB Conc 32.4 g/dl (31.0-35.0); Mean Corpuscular Volume 92.6 fL (80.0-98.0); Mean Platelet Volume 11.3 fL (9.4-12.3); NRBC Pct Auto 0.4 /100WBC (0.0-0.2); Platelet Count 128 X10*3/uL (160-400); Red Blood Count 2.97 X10*6/uL (4.20-5.50); Red Cell Distribution Width 15.1 % (11.0-16.0); White Blood Count 8.4 X10*3/uL (4.8-10.8)
[2021-05-01 06:31] LABS: Anion Gap 13 (12-20); Blood Urea Nitrogen 55 mg/dL (9-16); Calcium 8.8 mg/dL (8.4-10.2); Carbon Dioxide 20 mmol/L (22-29); Chloride 118 mmol/L (96-108); Creatinine Clr Calc Pharmacy 27.5; Estimated Glomerular Filt Rate 34; Glucose Random 74 mg/dL (60-115); Potassium 4.5 mmol/L (3.3-5.1); Sodium 146 mmol/L (135-145)
--- NOTE | 2021-05-01 07:46 | PC.NURSE ---
Pt is Alert, oriented to person and situation at this time. Pt pleasantly confused. NSR on the monitor with a block. LCA, denies N/V/D at this time. +PERRLA, neuros intact. Hematoma to L forehead, bruising to L eye. BLE from knees down with diffusing bruising in multiple stages of healing. Call zafar within reach, NPO at this time. Will continue to monitor.
--- NOTE | 2021-05-01 08:40 | PC.NURSE ---
Skin/Wound assessment completed today. Patient has moisture associated skin damage to bilateral upper thighs, Xeroform applied to right thigh wounds covered with Tegaderm, left side covered with Tegaderm. Patient also has abrasions to left knee and bilateral buttocks. Barrier cream applied to buttocks and Curad petroleum jelly applied to left knee abrasion. Bruising to bilateral legs and arms, face and head with a medium bump.
[2021-05-01] MEDS: Multivitamin TABLET 1 TAB PO (09:02)
[2021-05-01] MEDS: 0.9 % Sodium Chloride Flush 3 ML SYRINGE IVFLUSH ×3 (09:02→21:37)
[2021-05-01] MEDS: hydrALAZINE HCl 50 MG TABLET 100 MG PO ×3 (09:02→21:09)
[2021-05-01] MEDS: amLODIPine Besylate 10 MG TABLET PO (09:02)
[2021-05-01] MEDS: lisinopriL 5 MG TABLET PO (09:05)
[2021-05-01] MEDS: carvediloL 6.25 MG TABLET PO (09:05)
--- NOTE | 2021-05-01 09:06 | P.CDIC_ITS ---
CDI Concurrent Query Documentation Clarification: PHYSICIAN'S DOCUMENTATION REQUEST Date of Query: 05/01/21905 Patient Name: Georgina Jamil Admit Date: 04/29/21 Dear Doctor, A review of the medical record indicates additional documentation may be needed. Please review below and update the documentation accordingly. Clinical Indicators: Risk Factors/Clinical Indicators/Treatments Consult GI 05/01 - Her HCT dropped significantly from about a month ago, suggestive of acute GI blood loss. Recommends endoscopy for further evaluation. Transfuse 2 units PRBC HGB 5.9 HCT 18.5 PN: 04/30 - Acute on chronic anemia likely multifactorial, no acute GI bleed. Based on the above, could you clarify in the Progress Notes which of the following is the most likely type of anemia you are evaluating, treating, and/or monitoring? * Acute blood loss anemia * Acute blood loss anemia with baseline chronic anemia (specify type) * Anemia of chronic disease- indicate if neoplastic disease, CKD, or other * Chronic iron deficiency anemia due to acute blood loss * Other ? please specify * Unable to determine Use of terms such as suspected, likely, concern for, or probable (associated with a specific diagnosis that is being evaluated, monitored, or treated as if it exists) are acceptable and can be coded in the inpatient setting, when documented at the time of discharge. Thank you, Denisse Barbour [facility], CDIS Extension: [phone] Please use your independent medical judgment in providing your response. THIS QUERY IS PART OF THE PERMANENT MEDICAL RECORD Provider Response: Other Other Diagnosis: see note
--- NOTE | 2021-05-01 12:31 | HO.ANESPROP2 ---
HPI - Anesthesia Eval Consult details Narrative: 81 F w/ dementia p/f EGD PMFSH Active Problems Active Problems: All Active Problems (Updated 05/01/21 @ 17:00 by Mary Anne Lima MD) Syncope and collapse (Acute) Multifactorial gait disorder (Acute) Anemia due to blood loss (Acute) Hypothermia (Acute) CHF (congestive heart failure) (Acute) MATILDE (acute kidney injury) (Acute) Abnormal transaminases (Acute) First degree heart block (Acute) Ecchymosis (Acute) Dementia (Acute) Other and unspecified hyperlipidemia (Acute) Status post carotid endarterectomy (Acute) 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 (Acute) Bilateral carotid artery stenosis (Acute) UTI (urinary tract infection) (Acute) MATILDE (acute kidney injury) (Acute) Guaiac positive stools (Acute) Hypertensive urgency (Acute) Urine retention (Acute) Acute UTI (Acute) Acute kidney injury (Acute) Occult GI bleeding (Acute) Acute urinary retention (Acute) Hypertension (Acute) Anemia (Acute) NSTEMI (non-ST elevated myocardial infarction) (Acute) Hypertensive emergency (Acute) Essential hypertension (Acute) Peripheral artery disease (Acute) Coronary artery calcification seen on CAT scan (Acute) Past Medical History Medical History Anemia CLL (chronic lymphocytic leukemia) Coronary artery calcification seen on CAT scan COVID-19 vaccine series completed Dementia Essential hypertension Hx of reduction of closed dislocation Hyperlipidemia NSTEMI (non-ST elevated myocardial infarction) Peripheral artery disease Peripheral vascular disease Pulmonary fibrosis Ulcerative colitis Vertigo Family History Family History Father No problems noted. Mother No problems noted. Family history of problems with anesthesia: No Surgical History Surgical History H/O carotid endarterectomy H/O colonoscopy History of hip replacement History of liver biopsy History of revision of total hip arthroplasty Hx of lumbar discectomy S/P popliteal-distal bypass History of Problems with Anesthesia: No Social History Social History Household Members: Family Housing: House Are you a primary care consultant to a significant other at home: No Do you presently have visiting nurse or other home services: No Alcohol intake: current Alcohol intake frequency: does not drink Alcohol type: wine Patient Tobacco Use Status: Never used Tobacco Tobacco use type: Cigarette Years Smoked: 62 e-Cigarette/Vaping Use: Currently Using Second Hand Smoke Exposure: No Advance Directives Date on File: 05/06/20 service: No Current occupational status: retired 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 Meds Allergies Allergy/AdvReac Type Severity Reaction Status Date / Time diazepam [DIAZEPAM] Allergy Severe RASH Verified 04/09/21 15:13 [id number] Reductase Allergy Severe Muscle Pain Verified 04/09/21 15:13 Inhibitor [[id number] REDUCTASE INHIBITOR] Active Medications: Current Medications Amlodipine Besylate (Amlodipine Besylate 10 Mg Tablet) 10 mg PO DAILY [facility]; Protocol Last Admin: 05/02/21 07:28 Dose: 10 mg Documented by: Carvedilol (Carvedilol 6.25 Mg Tablet) 6.25 mg PO BID [facility]; Protocol Last Admin: 05/03/21 08:09 Dose: Not Given Documented by: Clonazepam (Clonazepam 1 Mg Tablet) 1 mg PO BEDTIME [facility]AR Last Admin: 05/02/21 20:23 Dose: 1 mg Documented by: Donepezil HCl (Donepezil Hcl 10 Mg Tablet) 10 mg PO BEDTIME [facility] Last Admin: 05/02/21 20:23 Dose: 10 mg Documented by: Hydralazine HCl (Hydralazine Hcl 50 Mg Tablet) 100 mg PO TID [facility]; Protocol Last Admin: 05/02/21 20:22 Dose: 100 mg Documented by: Lisinopril (Lisinopril 5 Mg Tablet) 5 mg PO DAILY [facility]; Protocol Last Admin: 05/02/21 07:28 Dose: 5 mg Documented by: Melatonin (Melatonin 3 Mg Tablet) 6 mg PO BEDTIME PRN PRN Reason: Insomnia Memantine (Memantine Hcl 10 Mg Tablet) 10 mg PO BEDTIME [facility] Last Admin: 05/02/21 20:23 Dose: 10 mg Documented by: Multivitamins/Vitamin C (Multivitamin Tablet) 1 tab PO DAILY [facility] Last Admin: 05/03/21 08:09 Dose: Not Given Documented by: Pharmacy Consult (Consult Rx Perform Med Rec) 1 each MISCELLANE ONCE PRN PRN Reason: Consult order Senna (Sennosides 8.6 Mg Tablet) 17.2 mg PO BEDTIME PRN PRN Reason: Constipation Sodium Chloride (0.9 % Sodium Chloride Flush 3 Ml Syringe) 3 ml IVFLUSH QSHIFT [facility] Last Admin: 05/02/21 20:23 Dose: 3 ml Documented by: Vitamin D (Cholecalciferol (Vitamin D3) 25 Mcg Tablet) 250 mcg PO DAILY [facility] Last Admin: 05/03/21 08:09 Dose: Not Given Documented by: Home Medications Medication Instructions Recorded Confirmed Last Taken Type ascorbic acid (vitamin C) 1,000 mg 1 g PO DAILY tab 03/09/20 04/29/21 04/29/21 History tablet aspirin 81 mg tablet,delayed 81 mg PO BEDTIME 03/09/20 04/29/21 04/28/21 History release calcitonin (salmon) 200 See Rx Instructions .ROUTE .COMPLEX 03/09/20 04/29/21 04/29/21 History unit/actuation nasal spray cholecalciferol (vitamin D3) 250 250 mcg PO DAILY 03/09/20 04/29/21 04/29/21 History mcg (10,000 unit) capsule clonazepam 0.5 mg tablet 1 mg PO BEDTIME 03/09/20 04/29/21 04/28/21 History donepezil 10 mg tablet 10 mg PO BEDTIME 03/09/20 04/29/21 04/28/21 History memantine 10 mg tablet 10 mg PO BEDTIME 03/09/20 04/29/21 04/28/21 History [id number]-[id number] acid 0.4 1 tab PO DAILY 03/09/20 04/29/21 04/29/21 History mg-lycopene 300 mcg-lutein 250 mcg tablet (Centrum Silver) hydrochlorothiazide 12.5 mg capsule 12.5 mg PO QAM 10/02/20 04/29/21 04/29/21 History amlodipine 10 mg tablet 10 mg PO BEDTIME 01/02/21 04/29/21 04/28/21 History lisinopril 5 mg tablet 1 tab PO DAILY 01/02/21 04/29/21 04/29/21 History Exam Exam Date and Time: May 03, 2021 0833 Height,Weight and Vital Signs: Height 5 ft 8 in Weight 129 lb Last Vital Signs Temp 97.2 F 05/03/21 07:34 Pulse 55 05/03/21 07:34 Resp 20 05/03/21 07:34 BP 129/69 05/03/21 07:34 Pulse Ox 98 05/03/21 07:34 Pertinent Lab Results Pertinent Lab Results: Laboratory Tests 04/29/21 04/29/21 04/29/21 16:49 16:49 16:49 WBC 12.1 H RBC 1.93 L D Hgb 5.9 L* D Hct 18.5 L* D MCV 95.9 MCH 30.6 MCHC 31.9 RDW 15.1 Plt Count 115 L D MPV 11.9 Immature Gran % (Auto) 0.5 H Neut % (Auto) 82.7 H Lymph % (Auto) 6.1 L [place] % (Auto) 8.8 Eos % (Auto) 1.7 Baso % (Auto) 0.2 Lymph # (Auto) 0.7 L [place] # (Auto) 1.1 Eos # (Auto) 0.2 Baso # (Auto) 0.0 Abs Immat Gran (auto) 0.06 H Absolute Neuts (auto) 10.0 H Absolute Nucleated RBC 0.000 Nucleated RBC % (auto) 0.0 Smear Tech's Comments Smear Path Review SEE NOTE Absolute Retic Percent Retic Immature Retic Fraction Retic Hgb Equivalent Haptoglobin PT 10.8 INR 1.0 D-Dimer High Sensitivty 290 Sodium 142 Potassium 4.9 Chloride 115 H Carbon Dioxide 20 L Anion Gap 12 BUN 75 H D Creatinine 1.64 H Estim Creat Clear Calc 24.8 Estimated GFR 30 Random Glucose 100 Lactic Acid Calcium 9.2 Magnesium 2.8 H Iron TIBC % Saturation Unsat Iron Binding Ferritin Total Bilirubin 0.2 Direct Bilirubin AST 166 H ALT 199 H Alkaline Phosphatase 464 H D Lactate Dehydrogenase Total Creatine Kinase 58 Troponin I High Sens B-Natriuretic Peptide Total Protein 5.1 L Albumin 3.3 L Triglycerides Cholesterol LDL Cholesterol, Calc HDL Cholesterol Lipase 69 TSH 1.99 Thyroxine (T4) 7.6 Urine Color Urine Appearance Urine pH Ur Specific [place] Urine Protein Urine Glucose (UA) Urine Ketones Urine Blood Urine Nitrite Ur Leukocyte Esterase Urine RBC Urine WBC Ur Squamous Epith Cells Amorphous Sediment Urine Bacteria Stool Occult Blood COVID-19 (GENIE) COVID-19 Clin Com Blood Type Antibody Screen TANA, Polyspecific Positive TANA Work-up Crossmatch Enhanced Crossmatch 04/29/21 04/29/21 04/29/21 16:49 16:49 16:49 WBC RBC Hgb Hct MCV MCH MCHC RDW Plt Count MPV Immature Gran % (Auto) Neut % (Auto) Lymph % (Auto) [place] % (Auto) Eos % (Auto) Baso % (Auto) Lymph # (Auto) [place] # (Auto) Eos # (Auto) Baso # (Auto) Abs Immat Gran (auto) Absolute Neuts (auto) Absolute Nucleated RBC Nucleated RBC % (auto) Smear Tech's Comments Smear Path Review Absolute Retic Percent Retic Immature Retic Fraction Retic Hgb Equivalent Haptoglobin PT INR D-Dimer High Sensitivty Sodium Potassium Chloride Carbon Dioxide Anion Gap BUN Creatinine Estim Creat Clear Calc Estimated GFR Random Glucose Lactic Acid 0.3 L Calcium Magnesium Iron TIBC % Saturation Unsat Iron Binding Ferritin Total Bilirubin Direct Bilirubin AST ALT Alkaline Phosphatase Lactate Dehydrogenase Total Creatine Kinase Troponin I High Sens 5.0 B-Natriuretic Peptide Cancelled Total Protein Albumin Triglycerides Cholesterol LDL Cholesterol, Calc HDL Cholesterol Lipase TSH Thyroxine (T4) Urine Color Urine Appearance Urine pH Ur Specific [place] Urine Protein Urine Glucose (UA) Urine Ketones Urine Blood Urine Nitrite Ur Leukocyte Esterase Urine RBC Urine WBC Ur Squamous Epith Cells Amorphous Sediment Urine Bacteria Stool Occult Blood COVID-19 (GENIE) Negative COVID-19 Clin Com See Note Blood Type Antibody Screen TANA, Polyspecific Positive TANA Work-up Crossmatch Enhanced Crossmatch 04/29/21 04/29/21 04/29/21 17:21 17:22 17:35 WBC RBC Hgb Hct MCV MCH MCHC RDW Plt Count MPV Immature Gran % (Auto) Neut % (Auto) Lymph % (Auto) [place] % (Auto) Eos % (Auto) Baso % (Auto) Lymph # (Auto) [place] # (Auto) Eos # (Auto) Baso # (Auto) Abs Immat Gran (auto) Absolute Neuts (auto) Absolute Nucleated RBC Nucleated RBC % (auto) Smear Tech's Comments Smear Path Review Absolute Retic Percent Retic Immature Retic Fraction Retic Hgb Equivalent Haptoglobin PT INR D-Dimer High Sensitivty Sodium Potassium Chloride Carbon Dioxide Anion Gap BUN Creatinine Estim Creat Clear Calc Estimated GFR Random Glucose Lactic Acid Calcium Magnesium Iron TIBC % Saturation Unsat Iron Binding Ferritin Total Bilirubin Direct Bilirubin AST ALT Alkaline Phosphatase Lactate Dehydrogenase Total Creatine Kinase Troponin I High Sens B-Natriuretic Peptide Total Protein Albumin Triglycerides Cholesterol LDL Cholesterol, Calc HDL Cholesterol Lipase TSH Thyroxine (T4) Urine Color YELLOW Urine Appearance HAZY Urine pH 5.5 Ur Specific [place] 1.015 Urine Protein 2+ H Urine Glucose (UA) NEG Urine Ketones NEG Urine Blood NEG Urine Nitrite NEG Ur Leukocyte Esterase NEG Urine RBC 0-2 Urine WBC 0 Ur Squamous Epith Cells 1+ Amorphous Sediment 3+ Urine Bacteria NONE Stool Occult Blood POSITIVE COVID-19 (GENIE) COVID-19 Clin Com Blood Type B Positive Antibody Screen NEGATIVE TANA, Polyspecific Positive TANA Work-up Crossmatch See Detail Enhanced Crossmatch See Detail 04/29/21 04/30/21 04/30/21 21:33 02:38 05:55 WBC 14.3 H 11.6 H RBC 2.87 L D 2.80 L Hgb 8.6 L D 8.4 L Hct 26.9 L D 26.4 L MCV 93.7 94.3 MCH 30.0 30.0 MCHC 32.0 31.8 RDW 14.6 14.6 Plt Count 119 L 119 L MPV 11.4 11.3 Immature Gran % (Auto) 0.8 H 0.7 H Neut % (Auto) 84.1 H 86.5 H Lymph % (Auto) 3.6 L 5.8 L [place] % (Auto) 10.6 5.7 Eos % (Auto) 0.7 1.0 Baso % (Auto) 0.2 0.3 Lymph # (Auto) 0.5 L 0.7 L [place] # (Auto) 1.5 H 0.7 Eos # (Auto) 0.1 0.1 Baso # (Auto) 0.0 0.0 Abs Immat Gran (auto) 0.12 H 0.08 H Absolute Neuts (auto) 12.1 H 10.0 H Absolute Nucleated RBC 0.060 H 0.060 H Nucleated RBC % (auto) 0.4 H 0.5 H Smear Tech's Comments VERIFIED Smear Path Review Absolute Retic Percent Retic Immature Retic Fraction Retic Hgb Equivalent Haptoglobin PT INR D-Dimer High Sensitivty Sodium Potassium Chloride Carbon Dioxide Anion Gap BUN Creatinine Estim Creat Clear Calc Estimated GFR Random Glucose Lactic Acid Calcium Magnesium Iron TIBC % Saturation Unsat Iron Binding Ferritin Total Bilirubin Direct Bilirubin AST ALT Alkaline Phosphatase Lactate Dehydrogenase Total Creatine Kinase Troponin I High Sens B-Natriuretic Peptide 505 H Total Protein Albumin Triglycerides Cholesterol LDL Cholesterol, Calc HDL Cholesterol Lipase TSH Thyroxine (T4) Urine Color Urine Appearance Urine pH Ur Specific [place] Urine Protein Urine Glucose (UA) Urine Ketones Urine Blood Urine Nitrite Ur Leukocyte Esterase Urine RBC Urine WBC Ur Squamous Epith Cells Amorphous Sediment Urine Bacteria Stool Occult Blood COVID-19 (GENIE) COVID-19 Clin Com Blood Type Antibody Screen TANA, Polyspecific Positive TANA Work-up Crossmatch Enhanced Crossmatch 04/30/21 04/30/21 04/30/21 05:55 05:55 12:21 WBC RBC Hgb 8.4 L Hct 25.8 L MCV MCH MCHC RDW Plt Count MPV Immature Gran % (Auto) Neut % (Auto) Lymph % (Auto) [place] % (Auto) Eos % (Auto) Baso % (Auto) Lymph # (Auto) [place] # (Auto) Eos # (Auto) Baso # (Auto) Abs Immat Gran (auto) Absolute Neuts (auto) Absolute Nucleated RBC Nucleated RBC % (auto) Smear Tech's Comments Smear Path Review Absolute Retic 0.061 Percent Retic 2.2 H Immature Retic Fraction 21.6 H Retic Hgb Equivalent 32.8 Haptoglobin PT INR D-Dimer High Sensitivty Sodium 144 Potassium 4.8 Chloride 119 H Carbon Dioxide 18 L Anion Gap 12 BUN 65 H Creatinine 1.50 H Estim Creat Clear Calc 27.1 Estimated GFR 33 Random Glucose 82 Lactic Acid Calcium 8.5 D Magnesium Iron TIBC % Saturation Unsat Iron Binding Ferritin Total Bilirubin Direct Bilirubin AST ALT Alkaline Phosphatase Lactate Dehydrogenase Total Creatine Kinase Troponin I High Sens B-Natriuretic Peptide Total Protein Albumin Triglycerides 31 Cholesterol 122 D LDL Cholesterol, Calc 37 HDL Cholesterol 79 D Lipase TSH Thyroxine (T4) Urine Color Urine Appearance Urine pH Ur Specific [place] Urine Protein Urine Glucose (UA) Urine Ketones Urine Blood Urine Nitrite Ur Leukocyte Esterase Urine RBC Urine WBC Ur Squamous Epith Cells Amorphous Sediment Urine Bacteria Stool Occult Blood COVID-19 (GENIE) COVID-19 Clin Com Blood Type Antibody Screen TANA, Polyspecific Positive TANA Work-up Crossmatch Enhanced Crossmatch 04/30/21 04/30/21 04/30/21 12:21 12:21 16:34 WBC RBC Hgb Hct MCV MCH MCHC RDW Plt Count MPV Immature Gran % (Auto) Neut % (Auto) Lymph % (Auto) [place] % (Auto) Eos % (Auto) Baso % (Auto) Lymph # (Auto) [place] # (Auto) Eos # (Auto) Baso # (Auto) Abs Immat Gran (auto) Absolute Neuts (auto) Absolute Nucleated RBC Nucleated RBC % (auto) Smear Tech's Comments Smear Path Review Absolute Retic Percent Retic Immature Retic Fraction Retic Hgb Equivalent Haptoglobin 116 PT INR D-Dimer High Sensitivty Sodium Potassium Chloride Carbon Dioxide Anion Gap BUN Creatinine Estim Creat Clear Calc Estimated GFR Random Glucose Lactic Acid Calcium Magnesium Iron 254 H TIBC < 271 % Saturation TNP Unsat Iron Binding < 17 Ferritin 462 H Total Bilirubin Direct Bilirubin AST ALT Alkaline Phosphatase Lactate Dehydrogenase 520 H Total Creatine Kinase Troponin I High Sens B-Natriuretic Peptide Total Protein Albumin Triglycerides Cholesterol LDL Cholesterol, Calc HDL Cholesterol Lipase TSH Thyroxine (T4) Urine Color Urine Appearance Urine pH Ur Specific [place] Urine Protein Urine Glucose (UA) Urine Ketones Urine Blood Urine Nitrite Ur Leukocyte Esterase Urine RBC Urine WBC Ur Squamous Epith Cells Amorphous Sediment Urine Bacteria Stool Occult Blood COVID-19 (GENIE) COVID-19 Clin Com Blood Type Antibody Screen TANA, Polyspecific POSITIVE A Positive TANA Work-up IgG=Pos [id number] A Crossmatch Enhanced Crossmatch 05/01/21 05/01/21 05/02/21 05:58 05:58 08:33 WBC 8.4 RBC 2.97 L Hgb 8.9 L Hct 27.5 L MCV 92.6 MCH 30.0 MCHC 32.4 RDW 15.1 Plt Count 128 L MPV 11.3 Immature Gran % (Auto) Neut % (Auto) Lymph % (Auto) [place] % (Auto) Eos % (Auto) Baso % (Auto) Lymph # (Auto) [place] # (Auto) Eos # (Auto) Baso # (Auto) Abs Immat Gran (auto) Absolute Neuts (auto) Absolute Nucleated RBC 0.030 H Nucleated RBC % (auto) 0.4 H Smear Tech's Comments Smear Path Review Absolute Retic Percent Retic Immature Retic Fraction Retic Hgb Equivalent Haptoglobin PT INR D-Dimer High Sensitivty Sodium 146 H 145 Potassium 4.5 4.7 Chloride 118 H 115 H Carbon Dioxide 20 L 21 L Anion Gap 13 14 BUN 55 H 49 H Creatinine 1.48 H 1.40 Estim Creat Clear Calc 27.5 29.1 Estimated GFR 34 36 Random Glucose 74 98 Lactic Acid Calcium 8.8 9.3 Magnesium Iron TIBC % Saturation Unsat Iron Binding Ferritin Total Bilirubin 0.4 Direct Bilirubin 0.2 AST 87 H ALT 195 H Alkaline Phosphatase 546 H Lactate Dehydrogenase 284 H Total Creatine Kinase Troponin I High Sens B-Natriuretic Peptide Total Protein 5.4 L Albumin 3.3 L Triglycerides Cholesterol LDL Cholesterol, Calc HDL Cholesterol Lipase TSH Thyroxine (T4) Urine Color Urine Appearance Urine pH Ur Specific [place] Urine Protein Urine Glucose (UA) Urine Ketones Urine Blood Urine Nitrite Ur Leukocyte Esterase Urine RBC Urine WBC Ur Squamous Epith Cells Amorphous Sediment Urine Bacteria Stool Occult Blood COVID-19 (GENIE) COVID-19 Clin Com Blood Type Antibody Screen TANA, Polyspecific Positive TANA Work-up Crossmatch Enhanced Crossmatch 05/03/21 05/03/21 06:03 06:03 WBC RBC Hgb Hct MCV MCH MCHC RDW Plt Count MPV Immature Gran % (Auto) Neut % (Auto) Lymph % (Auto) [place] % (Auto) Eos % (Auto) Baso % (Auto) Lymph # (Auto) [place] # (Auto) Eos # (Auto) Baso # (Auto) Abs Immat Gran (auto) Absolute Neuts (auto) Absolute Nucleated RBC Nucleated RBC % (auto) Smear Tech's Comments Smear Path Review Absolute Retic Percent Retic Immature Retic Fraction Retic Hgb Equivalent Haptoglobin PT INR D-Dimer High Sensitivty Sodium 143 Potassium 3.9 Chloride 109 H Carbon Dioxide 23 Anion Gap 15 BUN 46 H Creatinine 1.34 Estim Creat Clear Calc 30.3 Estimated GFR 38 Random Glucose 95 Lactic Acid Calcium 9.4 Magnesium Iron TIBC % Saturation Unsat Iron Binding Ferritin Total Bilirubin 0.6 Direct Bilirubin 0.3 AST 51 H ALT 149 H Alkaline Phosphatase 461 H Lactate Dehydrogenase Total Creatine Kinase Troponin I High Sens B-Natriuretic Peptide 293 H Total Protein 5.4 L Albumin 3.3 L Triglycerides Cholesterol LDL Cholesterol, Calc HDL Cholesterol Lipase TSH Thyroxine (T4) Urine Color Urine Appearance Urine pH Ur Specific [place] Urine Protein Urine Glucose (UA) Urine Ketones Urine Blood Urine Nitrite Ur Leukocyte Esterase Urine RBC Urine WBC Ur Squamous Epith Cells Amorphous Sediment Urine Bacteria Stool Occult Blood COVID-19 (GENIE) COVID-19 Clin Com Blood Type Antibody Screen TANA, Polyspecific Positive TANA Work-up Crossmatch Enhanced Crossmatch Assessment and Plan Assessment Anesthesia Assessment: Anesthesia Plan Discussed and Chart Reviewed Final Anesthetic Review Family History of Problems with Anesthesia: No History of Problems with Anesthesia: No NPO: Yes ASA Class: III and Emergency Final Preanesthetic Review: No Changes in Pt Med Stat, Meds/Allgs Chart Reviewed, Consent Obtained/Reviewed (with HCP via telephone) and Anes Risks/Benef Reviewed Patient Risk: Intermediate Procedure Risk: Low Anesthetic Plan Anesthetic Plan: MAC: Disposition: Standard PACU
--- NOTE | 2021-05-01 13:14 | P.BOP_ITS ---
Brief Operative Note Date of Service: 05/01/21 Pre-op diagnosis: anemia, heme pos stool Post-op diagnosis: same (erosive gastritis/duodenitis) Procedure: EGD Surgeon: Ad Hampton Anesthesia: MAC Was an Software Asset Management Analyst used for this Procedure?: No Estimated blood loss (mL): 2 Pathology: other (antral bxs) Condition: stable Disposition: PACU
--- NOTE | 2021-05-01 13:16 | PM.EVENT ---
Event Note Date of Service: 05/01/21 Event Note: EGD erosive gastritis and duodenitis without bleeding antral biopsies obtained can switch to otral ppi, omeprazole 20 bid advance diet no nsaids/asa x 1 week.
[2021-05-01 13:42] LABS: Haptoglobin 116 mg/dL (43-212)
--- NOTE | 2021-05-01 14:09 | OP_ITS ---
SURGEON: Ad Hampton MD INDICATIONS: Anemia and Hemoccult-positive stools. PREOPERATIVE DIAGNOSIS: POSTOPERATIVE DIAGNOSIS: PROCEDURE PERFORMED: Upper endoscopy with biopsy. ESTIMATED BLOOD LOSS: COMPLICATIONS: ANESTHESIA: ASSISTANTS: SPECIMENS: MEDICATIONS: Monitored anesthesia care. DESCRIPTION OF PROCEDURE: History and physical were performed. The risks and benefits of the procedure were explained to the patient and the patient's rather. An informed consent was obtained. The patient was placed in the left lateral decubitus position. The Olympus video gastroscope was introduced into the esophagus, stomach, and duodenum. Examination was performed. The scope was removed. She tolerated the procedure well and was taken to recovery area in stable condition. FINDINGS: Esophagus: The esophagus was normal. There was no esophagitis. Stomach: The stomach showed multiple small erosions, all less than 10 mm. These were present in the body and antrum. There was no bleeding. Antral biopsies were obtained to rule out H pylori. Duodenum: There was erosive duodenitis involving the bulb with no bleeding or ulcer identified. The 2nd portion was normal. IMPRESSION: 1. Erosive gastritis. 2. Erosive duodenitis. RECOMMENDATION: 1. Follow up the biopsy results. 2. Oral proton pump inhibitor. 3. No aspirin or NSAIDs for 1 week. MD DAYANA Rayo/CHELY / [id number]
--- NOTE | 2021-05-01 15:49 | P.PNIM_ITS ---
Subjective Subjective Date of Service: 05/01/21 Interval History: Resting comfortably , denies heartburn, acidity, no episode of hematemesis or melena, complaining of right knee discomfort,is NPO for upper endoscopy Review of Systems Review of Systems: Yes all other systems are reviewed and are negative Physical Exam Vital Signs: Vital Signs: Last Vital Signs Temp 97 F 05/01/21 13:46 Pulse 62 05/01/21 14:57 Resp 15 05/01/21 14:57 BP 161/48 H 05/01/21 14:57 Pulse Ox 96 05/01/21 14:57 BMI result Body Mass Index 19.5 Const: Other: General? resting c omfortably in no a cute distress.? HE ENT bruise left ey e, small hematoma left scalp Neck hayes pple no JVD. CVS? regular rate rhyth m, Respiratory jayne gs clear to auscul tation, no respira tory distress, no wheeze, no rhonchi . Gastrointestinal abdomen soft, non tender, bowel soun ds audible Extremi ties no edema. Adriana ro nonfocal patien t moving all 4 ext remity speech karlie r. Skin bilateral lower extremity br uising, abrasion t o both knees Objective Data Active Medications Amlodipine Besylate (Amlodipine Besylate 10 Mg Tablet) 10 mg PO DAILY [facility]; Protocol Last Admin: 05/01/21 09:02 Dose: 10 mg Documented by: SHERICE Carvedilol (Carvedilol 6.25 Mg Tablet) 6.25 mg PO BID [facility]; Protocol Last Admin: 05/01/21 09:05 Dose: 6.25 mg Documented by: SHERICE Clonazepam (Clonazepam 1 Mg Tablet) 1 mg PO BEDTIME [facility] Last Admin: 04/30/21 22:04 Dose: 1 mg Documented by: MIKAYLA Donepezil HCl (Donepezil Hcl 10 Mg Tablet) 10 mg PO BEDTIME [facility] Last Admin: 04/30/21 22:03 Dose: 10 mg Documented by: MIKAYLA Hydralazine HCl (Hydralazine Hcl 50 Mg Tablet) 100 mg PO TID [facility]; Protocol Last Admin: 05/01/21 15:08 Dose: 100 mg Documented by: SHERICE Lisinopril (Lisinopril 5 Mg Tablet) 5 mg PO DAILY [facility]; Protocol Last Admin: 05/01/21 09:05 Dose: 5 mg Documented by: SHERICE Melatonin (Melatonin 3 Mg Tablet) 6 mg PO BEDTIME PRN PRN Reason: Insomnia Memantine (Memantine Hcl 10 Mg Tablet) 10 mg PO BEDTIME [facility] Last Admin: 04/30/21 22:03 Dose: 10 mg Documented by: MIKAYLA Multivitamins/Vitamin C (Multivitamin Tablet) 1 tab PO DAILY [facility] Last Admin: 05/01/21 09:02 Dose: 1 tab Documented by: SHERICE Pantoprazole Sodium (Pantoprazole Sodium 40 Mg/10 Ml Vial) 40 mg IVPUSH BID@0630,1630 [facility] Last Admin: 05/01/21 15:08 Dose: 40 mg Documented by: SHERICE Pharmacy Consult (Consult Rx Perform Med Rec) 1 each MISCELLANE ONCE PRN PRN Reason: Consult order Senna (Sennosides 8.6 Mg Tablet) 17.2 mg PO BEDTIME PRN PRN Reason: Constipation Sodium Chloride (0.9 % Sodium Chloride Flush 3 Ml Syringe) 3 ml IVFLUSH QSHIFT [facility] Last Admin: 05/01/21 15:08 Dose: 3 ml Documented by: SHERICE Vitamin D (Cholecalciferol (Vitamin D3) 25 Mcg Tablet) 250 mcg PO DAILY [facility] Last Admin: 05/01/21 15:08 Dose: Not Given Documented by: SHERICE Non-Admin Reason: NPO Labs CBC & Chem 7: 05/01/21 05:58 05/01/21 05:58 Labs: Laboratory Results - last 24 hr 04/30/21 04/30/21 04/30/21 12:21 12:21 16:34 MCV MCH MCHC RDW Plt Count MPV Absolute Nucleated RBC Nucleated RBC % (auto) Haptoglobin 116 Anion Gap Estim Creat Clear Calc Estimated GFR Random Glucose Calcium Iron 254 H TIBC < 271 % Saturation TNP Unsat Iron Binding < 17 Ferritin 462 H TANA, Polyspecific POSITIVE A Positive TANA Work-up IgG=Pos [id number] A 05/01/21 05/01/21 05:58 05:58 MCV 92.6 MCH 30.0 MCHC 32.4 RDW 15.1 Plt Count 128 L MPV 11.3 Absolute Nucleated RBC 0.030 H Nucleated RBC % (auto) 0.4 H Haptoglobin Anion Gap 13 Estim Creat Clear Calc 27.5 Estimated GFR 34 Random Glucose 74 Calcium 8.8 Iron TIBC % Saturation Unsat Iron Binding Ferritin TANA, Polyspecific Positive TANA Work-up Microbiology Microbiology Results: Microbiology 04/29/21 16:49 Blood Culture - Preliminary Blood - Venous No growth after 24 hours. 04/29/21 16:49 Blood Culture - Preliminary Blood - Venous No growth after 24 hours. Assessment and Plan (1) Dementia: Status: Acute Plan 81-year-old female with a past medical history of hypertension, hyperlipidemia, CAD, dementia, CLL, anemia, lives with the family presented to the hospital with a chief complaint of frequent falls/slurring of the speech/shortness of breath/generalized weakness; Noted to have following conditions Recurrent falls question syncope: multiple unwitnessed falls at at home, 1 fall with head injury, CT head showed no acute intracranial process,CT cervical spine showed no acute findings.? CT abdomen showed no acute findings.? Knee x-rays no acute fracture No recurrent episode of syncope or slurred speech Falls likely related to anemia Seen by Dr. Gunderson he recommend EEG to rule out seizure LDL 37 total cholesterol 122 Hold statin, hold aspirin x1 week Ecchymosis: Secondary to fall/injury.? Platelet is stable and improved to 128 from 119. Follow PT/OT recommendation Acute on chronic Anemia likely multifactorial with mild hemolysis, chronic GI loss Status post upper endoscopy no active GI bleed noted, has erosive duodenitis and gastritis, will place patient on Prilosec 20 mg b.i.d. avoid NSAID and aspirin for 1 week as per GI recommendation Status post 2 units of packed RBC hematocrit improved and remained stable Case discussed with Dr. Lima, no further intervention needed, iron studies within normal range Bradycardia:?heart rate in 40s on arrival, EKG showed first-degree AV block, likely related to Coreg and Aricept, resume Coreg due to elevated blood pressure and stable heart rate Acute toxic metabolic encephalopathy with baseline dementia Resolved patient seems to be at baseline awake alert answering questions appropriately Hypothermia:? No infection.? Urinalysis negative.? Chest x-ray showed no evidence of pneumonia. DC antibiotic .? Treated with Donal Hugge, temperature normalized Positive D-dimer:? CT chest showed no evidence of pulmonary embolism,venous duplex showed no new DVT. CKI stage III creatinine close to baseline around 1.5.?Avoid nephrotoxins. Transaminitis:??CT abdomen showed no acute gallbladder pathology, liver is normal in size and shape, prior hepatitis serology negative, follow LFTs Chronic diastolic CHF:? No acute exacerbation Groin rash: stable continue nystatin cream Hypertension:? Elevated blood pressure ,resume home meds carvedilol, lisinopril, held yesterday, continue amlodipine and hydralazine follow BP closely History of dementia probably Alzheimer's Continue home medications, Aricept and memantine CLL outpatient follow-up with Oncology DVT prophylaxis:? Will place on heparin once anemia and platelet stabilizes, unable to use subcutaneous boots given bilateral leg severe ecchymosis. Code status: DNR/DNI Patient need inpatient hospitalization due to further workup of syncope including EEG Quality Stroke Does the patient have a stroke diagnosis?: No VTE Prior VTE?: No VTE Risk Level:: Medical - moderate - high VTE Device Contraindication: N/A - Device Ordered VTE Drug Contraindication: N/A - Med Ordered
--- NOTE | 2021-05-01 17:00 | PM.HEMONCCN ---
Subjective - Subjective Patient: new to practice Consult date: 05/01/21 Primary Care Provider: Walter Braun MD HPI - Consult Narrative Narrative: Georgina Jamil is a 81 year old female [facility] Medical History: Medical History (Last Reviewed 04/30/21 @ 08:35 by NATHANAEL Grande) Anemia CLL (chronic lymphocytic leukemia) Coronary artery calcification seen on CAT scan COVID-19 vaccine series completed Dementia Essential hypertension Hx of reduction of closed dislocation Hyperlipidemia NSTEMI (non-ST elevated myocardial infarction) Peripheral artery disease Peripheral vascular disease Pulmonary fibrosis Ulcerative colitis Vertigo Family History: Family History (Last Reviewed 04/09/21 @ 16:13 by MATT Sapp) Father No problems noted. Mother No problems noted. Surgical History: Surgical History (Last Reviewed 04/30/21 @ 08:35 by NATHANAEL Grande) H/O carotid endarterectomy H/O colonoscopy History of hip replacement History of liver biopsy History of revision of total hip arthroplasty Hx of lumbar discectomy S/P popliteal-distal bypass Social History: Social History (Last Reviewed 04/09/21 @ 16:13 by MATT Sapp) Living Situation History: Household Members: Spouse Housing: House Are you a primary health care manager to a significant other at home: No Do you presently have visiting nurse or other home services: Yes Do you presently have visiting nurse or other home services comment: [facility] post recent hospital discharge 01/06/21 Alcohol History Details: 1. How often do you have a drink containing alcohol?: a. Never AUDIT-C Alcohol total score: 0 Tobacco History: Patient Tobacco Use Status: Former Tobacco user Tobacco use type: Cigarette Cigarettes Per Day: 4 Years Smoked: 62 e-Cigarette/Vaping Use: Currently Using Second Hand Smoke Exposure: No Substance Use History: Use of substances other than those prescribed or required for medical reasons: No Advance Directives: Advance Directives: Yes Advance Directives Information Provided: No Advance Directives on File: Yes Advance Directives Date on File: 05/06/20 Occupation Assessmet: service: No Current occupational status: retired 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 Home Medications and Allergies Current Medications: Current Medications Amlodipine Besylate (Amlodipine Besylate 10 Mg Tablet) 10 mg PO DAILY [facility]; Protocol Last Admin: 05/01/21 09:02 Dose: 10 mg Documented by: Carvedilol (Carvedilol 6.25 Mg Tablet) 6.25 mg PO BID [facility]; Protocol Last Admin: 05/01/21 09:05 Dose: 6.25 mg Documented by: Clonazepam (Clonazepam 1 Mg Tablet) 1 mg PO BEDTIME [facility] Last Admin: 04/30/21 22:04 Dose: 1 mg Documented by: Donepezil HCl (Donepezil Hcl 10 Mg Tablet) 10 mg PO BEDTIME [facility] Last Admin: 04/30/21 22:03 Dose: 10 mg Documented by: Hydralazine HCl (Hydralazine Hcl 50 Mg Tablet) 100 mg PO TID [facility]; Protocol Last Admin: 05/01/21 15:08 Dose: 100 mg Documented by: Lisinopril (Lisinopril 5 Mg Tablet) 5 mg PO DAILY [facility]; Protocol Last Admin: 05/01/21 09:05 Dose: 5 mg Documented by: Melatonin (Melatonin 3 Mg Tablet) 6 mg PO BEDTIME PRN PRN Reason: Insomnia Memantine (Memantine Hcl 10 Mg Tablet) 10 mg PO BEDTIME [facility] Last Admin: 04/30/21 22:03 Dose: 10 mg Documented by: Multivitamins/Vitamin C (Multivitamin Tablet) 1 tab PO DAILY [facility] Last Admin: 05/01/21 09:02 Dose: 1 tab Documented by: Pantoprazole Sodium (Pantoprazole Sodium 40 Mg/10 Ml Vial) 40 mg IVPUSH BID@0630,1630 [facility] Last Admin: 05/01/21 15:08 Dose: 40 mg Documented by: Pharmacy Consult (Consult Rx Perform Med Rec) 1 each MISCELLANE ONCE PRN PRN Reason: Consult order Senna (Sennosides 8.6 Mg Tablet) 17.2 mg PO BEDTIME PRN PRN Reason: Constipation Sodium Chloride (0.9 % Sodium Chloride Flush 3 Ml Syringe) 3 ml IVFLUSH QSHIFT [facility] Last Admin: 05/01/21 15:08 Dose: 3 ml Documented by: Vitamin D (Cholecalciferol (Vitamin D3) 25 Mcg Tablet) 250 mcg PO DAILY [facility] Last Admin: 05/01/21 15:08 Dose: Not Given Documented by: Home Medications Medication Instructions Recorded Confirmed Type ascorbic acid (vitamin C) 1,000 mg 1 g PO DAILY tab 03/09/20 04/29/21 History tablet aspirin 81 mg tablet,delayed 81 mg PO BEDTIME 03/09/20 04/29/21 History release calcitonin (salmon) 200 See Rx Instructions .ROUTE .COMPLEX 03/09/20 04/29/21 History unit/actuation nasal spray cholecalciferol (vitamin D3) 250 250 mcg PO DAILY 03/09/20 04/29/21 History mcg (10,000 unit) capsule clonazepam 0.5 mg tablet 1 mg PO BEDTIME 03/09/20 04/29/21 History donepezil 10 mg tablet 10 mg PO BEDTIME 03/09/20 04/29/21 History memantine 10 mg tablet 10 mg PO BEDTIME 03/09/20 04/29/21 History biziuycw-bib-opany acid 0.4 1 tab PO DAILY 03/09/20 04/29/21 History mg-lycopene 300 mcg-lutein 250 mcg tablet (Centrum Silver) hydrochlorothiazide 12.5 mg capsule 12.5 mg PO QAM 10/02/20 04/29/21 History amlodipine 10 mg tablet 10 mg PO BEDTIME 01/02/21 04/29/21 History lisinopril 5 mg tablet 1 tab PO DAILY 01/02/21 04/29/21 History Allergies Allergy/AdvReac Type Severity Reaction Status Date / Time diazepam [DIAZEPAM] Allergy Severe RASH Verified 04/09/21 15:13 Cfpelzd-HFT-ToS Reductase Allergy Severe Muscle Pain Verified 04/09/21 15:13 Inhibitor [[id number]-PUM REDUCTASE INHIBITOR] Physical Exam Vital signs: Vital Signs Temp 97 F 05/01/21 13:46 Pulse 62 05/01/21 14:57 Resp 15 05/01/21 14:57 BP 161/48 H 05/01/21 14:57 Pulse Ox 96 05/01/21 14:57 Intake & Output 04/30/21 05/01/21 05/01/21 18:59 06:59 18:59 Output Total 1575 / 1925 350 / 1925 Balance -1575 / -1925 -350 / -1925 Urine Output (Average ml/kg/hr) 2.24 0.50 0.50 Output: Output, Urine Amount 700 / 1050 350 / 1050 Output, Urine Amount (Catheter) 875 / 875 Urethral 875 / 875 Other: IV Intake, Intraoperative 600 Amount NPO Yes Urine Color Yellow Weight 58.513 kg Hem/Onc Consult Result - Labs CBC & Chem 7: 05/01/21 05:58 05/01/21 05:58 Labs: Short CBC 05/01/21 Range/Units 05:58 WBC 8.4 (4.8-10.8) X10*3/uL Hgb 8.9 L (12.0-16.0) g/dl Hct 27.5 L (37.0-47.0) % Plt Count 128 L (160-400) X10*3/uL BMP 05/01/21 05:58 Sodium 146 H Potassium 4.5 Chloride 118 H Carbon Dioxide 20 L BUN 55 H Creatinine 1.48 H Calcium 8.8
[2021-05-01] MEDS: Donepezil HCl 10 MG TABLET PO (21:12)
[2021-05-01] MEDS: clonazePAM 1 MG TABLET PO (21:12)
[2021-05-01] MEDS: Memantine HCl 10 MG TABLET PO (21:12)
[2021-05-02] VITALS (7 sets, daily range): BP systolic 145–188; BP diastolic 61–75; PULSE 45–107; RESP 15–18; TEMP 35.6–36.5; O2SAT 95–98; BMI 19.5
[2021-05-02] MEDS: Pantoprazole Sodium 40 MG/10 ML VIAL IVPUSH ×2 (05:35→17:02)
[2021-05-02] MEDS: Cholecalciferol (Vitamin D3) 25 MCG TABLET 250 MCG PO (07:27)
[2021-05-02] MEDS: hydrALAZINE HCl 50 MG TABLET 100 MG PO ×3 (07:27→20:22)
[2021-05-02] MEDS: Multivitamin TABLET 1 TAB PO (07:28)
[2021-05-02] MEDS: lisinopriL 5 MG TABLET PO (07:28)
[2021-05-02] MEDS: 0.9 % Sodium Chloride Flush 3 ML SYRINGE IVFLUSH ×3 (07:28→20:23)
[2021-05-02] MEDS: carvediloL 6.25 MG TABLET PO ×2 (07:28→20:23)
[2021-05-02] MEDS: amLODIPine Besylate 10 MG TABLET PO (07:28)
[2021-05-02 09:24] LABS: Alanine Aminotransferase 195 U/L (0-31); Albumin Level 3.3 g/dL (3.5-5.0); Alkaline Phosphatase 546 U/L (39-117); Anion Gap 14 (12-20); Aspartate Amino Transferase 87 U/L (5-31); Bilirubin Direct 0.2 mg/dL (0.0-0.5); Bilirubin Total 0.4 mg/dL (0.0-1.0); Blood Urea Nitrogen 49 mg/dL (9-16); Calcium 9.3 mg/dL (8.4-10.2); Carbon Dioxide 21 mmol/L (22-29); Chloride 115 mmol/L (96-108); Creatinine Clr Calc Pharmacy 29.1; Estimated Glomerular Filt Rate 36; Glucose Random 98 mg/dL (60-115); Potassium 4.7 mmol/L (3.3-5.1); Sodium 145 mmol/L (135-145); Total Protein 5.4 g/dL (6.5-8.0)
--- NOTE | 2021-05-02 09:24 | HO.POSTANES ---
Post Anesthesia Evaluation Post Anesthesia Evaluation Vital Signs: Vital Signs Temp Pulse Resp BP Pulse Ox 05/02/21 09:18 52 188/74 H 96 05/02/21 07:29 97.1 F 52 18 188/74 H 96 05/02/21 03:36 97.7 F 50 18 159/70 H 95 05/01/21 23:25 97.9 F 51 18 158/76 H 92 Anesthesia: Monitored Mental Status: Awake Pain Control: Satisfactory Nausea/Vomiting: None Hydration: Adequate Anesthesia-Related Issues: No Anes. Related Issues
--- NOTE | 2021-05-02 10:00 | CA_ITS ---
Transthoracic Echocardiogram Patient (Last, First, Middle): Georgina Jamil J Gender: Female Date of : 1940 Age: 81 Procedure Date: 05/02/2021 Procedure Type: Transthoracic Echocardiogram Location: S3E Height: 172.72 cm Weight: 58.51 kg BSA: 1.70 m2 Heart Rate: bpm BP: 165 / 53 mmHg Corrections Unit Supervisor: JUAN A Regalado MD: Danny Durand MD Freight Unloader: Ernesto Verma MD Symptoms: chf Study Quality: Good ECG Rhythm: Sinus Conclusions: - Normal LV systolic function with moderate LVH with impaired relaxation abmormality Findings Left Ventricle Normal left ventricular size and systolic function. There is moderately increased left ventricular wall thickness. The visually estimated ejection fraction is between 60-65%. Spectral Doppler is indicative of an impaired relaxation filling pattern. E/E prime ratio is between 8 and 15 consistent with indeterminate filling pressures. Pericardium/Pleural There is no evidence of pericardial effusion. Prior Study Comparison No significant change compared to prior study dated: 01/03/2021. Measurements 2D Linear Measurements IVSd: 1.45 0.6-0.9/0.6-1.0 cm LVIDd: 4.38 3.9-5.3/4.2-5.9 cm LVIDd Index: 2.58 2.4-3.2/2.2-3.1 cm/m2 LVIDs: 2.70 2.0-3.6 cm LVPWd: 1.42 0.7-1.1 cm LA Diam: 3.40 2.7-3.8/3.0-4.0 cm LAIDs Index: 2.00 1.5-2.3 cm/m2 LV Mass: 242.51 67-162/88-224 g LV Mass Index: 142.66 43-95/49-115 g/m2 2D Systolic Function EF 4C: 58.50 >55% EF 2C: 63.60 >55% EF BiP: 60.40 >55% Mitral Valve MV Pk E: 0.74 MV PK A: 0.97 MV Decel Time: 376.00 E/A: 0.80 E'Lateral: 6.42 E'Medial: 5.44 E/E' Med: 13.60 E/E' Lat: 11.60 PHT: 110.00 MVA PHT: 2.00 Decel [place]: 1.97 Diastolic Function MV Pk E: 0.74 MV Pk A: 0.97 E/A: 0.80 E'Medial: 5.44 E/E' Med: 13.60 E' Laterial: 6.42 E/E' Lat: 11.60 Updated in Other Vendor System with Status of Final Ernesto Verma MD electronically signed on 05/02/2021 8:46:32 PM with status of Final
--- NOTE | 2021-05-02 13:16 | HO.PM.IMPN ---
Subjective Subjective Date of Service: 05/02/21 Interval History: Offers no acute complaints, denies shortness of breath, no chest pain no nausea no vomiting no abdominal pain no hematemesis or melena, tolerating diet, no events overnight. Review of Systems Review of Systems: Yes all other systems are reviewed and are negative Physical Exam Vital Signs: Vital Signs: Last Vital Signs Temp 97.1 F 05/02/21 11:56 Pulse 50 05/02/21 11:56 Resp 15 05/02/21 11:56 BP 145/67 H 05/02/21 11:56 Pulse Ox 98 05/02/21 11:56 BMI result Body Mass Index 19.5 Const: Other: General? resting comfortably in no acute distress.? HEENT bruise left eye, small hematoma left scalp and bruising left forehead Neck supple no JVD. CVS?regular rate rhythm, Respiratory lungs clear to auscultation, no respiratory distress, no wheeze, no rhonchi, no rales Gastrointestinal?abdomen soft, nontender, bowel sounds audible Extremities no pitting edema. Neuro nonfocal, moving all 4 extremity speech clear. Skin bilaterallower extremity bruising, abrasion to both knees Objective Data Active Medications Amlodipine Besylate (Amlodipine Besylate 10 Mg Tablet) 10 mg PO DAILY [facility]; Protocol Last Admin: 05/02/21 07:28 Dose: 10 mg Documented by: BLAZE Carvedilol (Carvedilol 6.25 Mg Tablet) 6.25 mg PO BID [facility]; Protocol Last Admin: 05/02/21 07:28 Dose: 6.25 mg Documented by: BLAZE Clonazepam (Clonazepam 1 Mg Tablet) 1 mg PO BEDTIME [facility] Last Admin: 05/01/21 21:12 Dose: 1 mg Documented by: BOLIVAR Donepezil HCl (Donepezil Hcl 10 Mg Tablet) 10 mg PO BEDTIME [facility] Last Admin: 05/01/21 21:12 Dose: 10 mg Documented by: BOLIVAR Hydralazine HCl (Hydralazine Hcl 50 Mg Tablet) 100 mg PO TID [facility]; Protocol Last Admin: 05/02/21 07:27 Dose: 100 mg Documented by: BLAZE Lisinopril (Lisinopril 5 Mg Tablet) 5 mg PO DAILY [facility]; Protocol Last Admin: 05/02/21 07:28 Dose: 5 mg Documented by: BLAZE Melatonin (Melatonin 3 Mg Tablet) 6 mg PO BEDTIME PRN PRN Reason: Insomnia Memantine (Memantine Hcl 10 Mg Tablet) 10 mg PO BEDTIME [facility] Last Admin: 05/01/21 21:12 Dose: 10 mg Documented by: BOLIVAR Multivitamins/Vitamin C (Multivitamin Tablet) 1 tab PO DAILY [facility] Last Admin: 05/02/21 07:28 Dose: 1 tab Documented by: BLAZE Pantoprazole Sodium (Pantoprazole Sodium 40 Mg/10 Ml Vial) 40 mg IVPUSH BID@0630,1630 [facility] Last Admin: 05/02/21 05:35 Dose: 40 mg Documented by: FATMATA Pharmacy Consult (Consult Rx Perform Med Rec) 1 each MISCELLANE ONCE PRN PRN Reason: Consult order Senna (Sennosides 8.6 Mg Tablet) 17.2 mg PO BEDTIME PRN PRN Reason: Constipation Sodium Chloride (0.9 % Sodium Chloride Flush 3 Ml Syringe) 3 ml IVFLUSH QSHIFT [facility] Last Admin: 05/02/21 07:28 Dose: 3 ml Documented by: BLAZE Vitamin D (Cholecalciferol (Vitamin D3) 25 Mcg Tablet) 250 mcg PO DAILY [facility] Last Admin: 05/02/21 07:27 Dose: 250 mcg Documented by: BLAZE Labs CBC & Chem 7: 05/01/21 05:58 05/02/21 08:33 Labs: Laboratory Results - last 24 hr 04/29/21 04/30/21 04/30/21 16:49 12:21 16:34 Smear Path Review SEE NOTE Haptoglobin 116 Anion Gap Estim Creat Clear Calc Estimated GFR Random Glucose Calcium Total Bilirubin Direct Bilirubin AST ALT Alkaline Phosphatase Total Protein Albumin TANA, Polyspecific POSITIVE A Positive TANA Work-up IgG=Pos [id number] A 05/02/21 08:33 Smear Path Review Haptoglobin Anion Gap 14 Estim Creat Clear Calc 29.1 Estimated GFR 36 Random Glucose 98 Calcium 9.3 Total Bilirubin 0.4 Direct Bilirubin 0.2 AST 87 H ALT 195 H Alkaline Phosphatase 546 H Total Protein 5.4 L Albumin 3.3 L TANA, Polyspecific Positive TANA Work-up Microbiology Microbiology Results: Microbiology 04/29/21 16:49 Blood Culture - Preliminary Blood - Venous No growth after 48 hours. 04/29/21 16:49 Blood Culture - Preliminary Blood - Venous No growth after 48 hours. Assessment and Plan (1) Dementia: Status: Acute Plan 81-year-old female with a past medical history of hypertension, hyperlipidemia, CAD, dementia, CLL, anemia, lives with the family presented to the hospital with a chief complaint of frequent falls/slurring of the speech/shortness of breath/generalized weakness; Noted to have following conditions Recurrent falls question syncope: multiple unwitnessed falls at at home, 1 fall with head injury, CT head showed no acute intracranial process,CT cervical spine showed no acute findings.? CT abdomen showed no acute findings.? Knee x-rays no acute fracture No recurrent episode of syncope or slurred speech Falls likely related to anemia Seen by Dr. Gunderson he recommend EEG to rule out seizure, EEG pending LDL 37 total cholesterol 122, hold repatha and follow-up lipid profile in 3-4 months Ecchymosis: Secondary to fall/injury.? Platelet is stable and improved to 128 from 119. PT recommend short-term rehab Acute on chronic Anemia likely multifactorial with mild hemolysis, chronic GI loss no acute symptoms Status post upper endoscopy no active GI bleed noted, has erosive duodenitis and gastritis, will place patient on Prilosec 20 mg b.i.d. avoid NSAID and aspirin for 1 week as per GI recommendation Status post 2 units of packed RBC hematocrit improved and remained stable Case discussed with Dr. Lima, no further intervention needed for hemolysis, iron studies within normal range Hold aspirin for 1 week, avoid NSAIDs Bradycardia:?heart rate in 40s on arrival, EKG showed first-degree AV block, likely related to Coreg and Aricept, resume Coreg due to elevated blood pressure and stable heart rate Acute toxic metabolic encephalopathy with baseline dementia Resolved patient seems to be at baseline awake alert answering questions appropriately Hypothermia:? No infection.? Urinalysis negative.? Chest x-ray showed no evidence of pneumonia. DC antibiotic .? Treated with Donal Hugge, temperature normalized Positive D-dimer:? CT chest showed no evidence of pulmonary embolism,venous duplex showed no new DVT. CKI stage III creatinine close to baseline around 1.5.?Avoid nephrotoxins. Transaminitis:??CT abdomen showed no acute gallbladder pathology, liver is normal in size and shape, prior hepatitis serology negative, Repeat LFTs remain elevated likely passive congestion will treat with low-dose IV Lasix and repeat LFTs, patient on multiple medications that can cause hepatotoxicity including amlodipine and lisinopril is spoke with patient's primary care physician Dr. Walter Braun and informed him regarding transaminitis and he will follow LFTs as outpatient Chronic diastolic CHF:? Patient has no shortness of breath or leg edema, although noted to have elevated BNP and abnormal CT chest suggestive of congestion and elevated lfts,will give IV Lasix 20 mg x 1 and repeat BNP/and LFTs at a.m. Groin rash: stable continue nystatin cream Hypertension:? Elevated blood pressure ,on home meds carvedilol, lisinopril, amlodipine and hydralazine follow BP closely and resume hydrochlorothiazide History of dementia probably Alzheimer's Continue home medications, Aricept and memantine CLL outpatient follow-up with Oncology DVT prophylaxis:? place on heparin since hematocrit stable, unable to use subcutaneous boots given bilateral leg severe ecchymosis. Code status: DNR/DNI Disposition to rehab social worker palliative care to arrange for bed Patient need inpatient hospitalization due to further workup of syncope including EEG, and follow up on transaminitis. Quality Stroke Does the patient have a stroke diagnosis?: No VTE Prior VTE?: No VTE Risk Level:: Medical - moderate - high VTE Device Contraindication: N/A - Device Ordered VTE Drug Contraindication: N/A - Med Ordered
--- NOTE | 2021-05-02 14:40 | MHC.CM.PN ---
Addendum entered by Kaelyn Anguiano RN 05/02/21 15:47: [facility] ACCEPTED PT AND HAS BEEN ADDED TO DCP. Original Note: EMR REVIEWED. CM MET W/PT AND AT BEDSIDE TO DISCUSS DCP, BOTH PREFER PT RETURNS HOME W/SERVICES AND WOULD LIKE [facility] THEY HAVE USED THEM BEFORE HOWEVER THEY NO LONGER TAKE [facility] INSURANCE, ADDITIONAL REFERRLAS PLACED AND PT WILL NEED SN AND HOME PT. PER HOSPITALIST ANTIC PT WILL D/C TOMORROW 05/03.
[2021-05-02] MEDS: Furosemide 20 MG/2 ML VIAL IVPUSH (14:52)
--- NOTE | 2021-05-02 15:39 | MHC.CLN ---
NUTRITION NUTRITION CONSULT DUE TO PRESSURE INJURY. STAGE II TO COCCYX. DIET=CARDIAC. PER CONVERSATION WITH PATIENT, ADDING ENSURE BID (700 KCAL, 40 G PROTEIN) TO PROMOTE WOUND HEALING.
--- NOTE | 2021-05-02 15:50 | PM.HEMONCCN ---
Subjective - Subjective Chief complaint: Weakness, status post fall Patient: new to practice Consult date: 05/02/21 Primary Care Provider: Walter Braun MD HPI - Consult Narrative Reason for consult: anemia Narrative: This is a 81-year-old woman with history of CLL hand previous autoimmune hemolytic anemia who is currently admitted after a fall and found to be severely anemic with a hemoglobin of 5.6 gram/dL. She received blood transfusions, underwent EGD because of heme-positive stools. She was found to have erosive esophagitis and gastritis but no acute bleeding. She has responded well to blood transfusion and her H&H has been stable. Her who is at the bedside says that patient has been getting quite weak and not eating or drinking much. She has had several falls recently. She has had significant bruising all over her lower extremities. They deny any recent infections, fever or chills. She has not been on any treatment for her CLL as she has been in remission. She sees Dr. Cash for CLL. Review of Systems - Constitutional Reports as per HPI, Reports no additional constitutional complaints - Cardiovascular Reports no additional cardiovascular complaints - Respiratory Reports no additional respiratory complaints Oncology Screenings - ECOG Performance Status ECOG Performance Status: 1 [facility] Medical History: Medical History (Last Reviewed 04/30/21 @ 08:35 by VANDANA Grande-Braeden) Anemia CLL (chronic lymphocytic leukemia) Coronary artery calcification seen on CAT scan COVID-19 vaccine series completed Dementia Essential hypertension Hx of reduction of closed dislocation Hyperlipidemia NSTEMI (non-ST elevated myocardial infarction) Peripheral artery disease Peripheral vascular disease Pulmonary fibrosis Ulcerative colitis Vertigo Family History: Family History (Last Reviewed 04/09/21 @ 16:13 by MATT Sapp) Father No problems noted. Mother No problems noted. Surgical History: Surgical History (Last Reviewed 04/30/21 @ 08:35 by NATHANAEL Grande) H/O carotid endarterectomy H/O colonoscopy History of hip replacement History of liver biopsy History of revision of total hip arthroplasty Hx of lumbar discectomy S/P popliteal-distal bypass Social History: Social History (Last Reviewed 04/09/21 @ 16:13 by MATT Sapp) Living Situation History: Household Members: Family Housing: House Are you a primary intensive care unit nurse to a significant other at home: No Do you presently have visiting nurse or other home services: No Tobacco History: Patient Tobacco Use Status: Never used Tobacco Tobacco use type: Cigarette Years Smoked: 62 e-Cigarette/Vaping Use: Currently Using Second Hand Smoke Exposure: No Advance Directives: Advance Directives Date on File: 05/06/20 Occupation Assessmet: service: No Current occupational status: retired 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 Home Medications and Allergies Current Medications: Current Medications Amlodipine Besylate (Amlodipine Besylate 10 Mg Tablet) 10 mg PO DAILY [facility]; Protocol Last Admin: 05/02/21 07:28 Dose: 10 mg Documented by: Carvedilol (Carvedilol 6.25 Mg Tablet) 6.25 mg PO BID [facility]; Protocol Last Admin: 05/02/21 07:28 Dose: 6.25 mg Documented by: Clonazepam (Clonazepam 1 Mg Tablet) 1 mg PO BEDTIME [facility] Last Admin: 05/01/21 21:12 Dose: 1 mg Documented by: Donepezil HCl (Donepezil Hcl 10 Mg Tablet) 10 mg PO BEDTIME [facility] Last Admin: 05/01/21 21:12 Dose: 10 mg Documented by: Hydralazine HCl (Hydralazine Hcl 50 Mg Tablet) 100 mg PO TID [facility]; Protocol Last Admin: 05/02/21 14:52 Dose: 100 mg Documented by: Lisinopril (Lisinopril 5 Mg Tablet) 5 mg PO DAILY [facility]; Protocol Last Admin: 05/02/21 07:28 Dose: 5 mg Documented by: Melatonin (Melatonin 3 Mg Tablet) 6 mg PO BEDTIME PRN PRN Reason: Insomnia Memantine (Memantine Hcl 10 Mg Tablet) 10 mg PO BEDTIME [facility] Last Admin: 05/01/21 21:12 Dose: 10 mg Documented by: Multivitamins/Vitamin C (Multivitamin Tablet) 1 tab PO DAILY [facility] Last Admin: 05/02/21 07:28 Dose: 1 tab Documented by: Pantoprazole Sodium (Pantoprazole Sodium 40 Mg/10 Ml Vial) 40 mg IVPUSH BID@0630,1630 [facility] Last Admin: 05/02/21 05:35 Dose: 40 mg Documented by: Pharmacy Consult (Consult Rx Perform Med Rec) 1 each MISCELLANE ONCE PRN PRN Reason: Consult order Senna (Sennosides 8.6 Mg Tablet) 17.2 mg PO BEDTIME PRN PRN Reason: Constipation Sodium Chloride (0.9 % Sodium Chloride Flush 3 Ml Syringe) 3 ml IVFLUSH QSHIFT [facility] Last Admin: 05/02/21 14:52 Dose: 3 ml Documented by: Vitamin D (Cholecalciferol (Vitamin D3) 25 Mcg Tablet) 250 mcg PO DAILY [facility] Last Admin: 05/02/21 07:27 Dose: 250 mcg Documented by: Home Medications Medication Instructions Recorded Confirmed Type ascorbic acid (vitamin C) 1,000 mg 1 g PO DAILY tab 03/09/20 04/29/21 History tablet aspirin 81 mg tablet,delayed 81 mg PO BEDTIME 03/09/20 04/29/21 History release calcitonin (salmon) 200 See Rx Instructions .ROUTE .COMPLEX 03/09/20 04/29/21 History unit/actuation nasal spray cholecalciferol (vitamin D3) 250 250 mcg PO DAILY 03/09/20 04/29/21 History mcg (10,000 unit) capsule clonazepam 0.5 mg tablet 1 mg PO BEDTIME 03/09/20 04/29/21 History donepezil 10 mg tablet 10 mg PO BEDTIME 03/09/20 04/29/21 History memantine 10 mg tablet 10 mg PO BEDTIME 03/09/20 04/29/21 History [id number]-bdv-[id number] acid 0.4 1 tab PO DAILY 03/09/20 04/29/21 History mg-lycopene 300 mcg-lutein 250 mcg tablet (Centrum Silver) hydrochlorothiazide 12.5 mg capsule 12.5 mg PO QAM 10/02/20 04/29/21 History amlodipine 10 mg tablet 10 mg PO BEDTIME 01/02/21 04/29/21 History lisinopril 5 mg tablet 1 tab PO DAILY 01/02/21 04/29/21 History Allergies Allergy/AdvReac Type Severity Reaction Status Date / Time diazepam [DIAZEPAM] Allergy Severe RASH Verified 04/09/21 15:13 [id number]-[id number] Reductase Allergy Severe Muscle Pain Verified 04/09/21 15:13 Inhibitor [[id number] REDUCTASE INHIBITOR] Physical Exam Vital signs: Vital Signs Temp 96.1 F L 05/02/21 15:20 Pulse 45 L 05/02/21 15:20 Resp 16 05/02/21 15:20 BP 158/61 H 05/02/21 15:20 Pulse Ox 96 05/02/21 15:20 Intake & Output 05/01/21 05/02/21 05/02/21 18:59 06:59 18:59 Intake Total 420 / 420 Output Total 1000 / 1000 Balance -1000 / -1000 420 / 420 Urine Output (Average ml/kg/hr) 1.42 1.42 Intake: Intake, Oral Amount 420 / 420 Output: Output, Urine Amount (Catheter) 1000 / 1000 Urethral 1000 / 1000 Other: IV Intake, Intraoperative 600 Amount Meal Refused No NPO Yes No Breakfast % Eaten 50% Lunch % Eaten 75% Number of Unmeasured Voids 4 3 Number of Bowel Movements 6 Urine Bathroom Bathroom Urine Color Yellow Yellow Last Bowel Movement 05/02/21 Stool Bathroom Stool Amount Large Stool Color Black (Tarry) Stool Consistency Liquid Weight 58.513 kg Weight 58.513 kg - Constitutional Present: chronically ill appearing, somnolent - Routine HEENT Exam Head: Present: atraumatic Eye: Present: normal appearance - Routine Neck Exam Present: supple - Routine Respiratory Exam Absent: accessory muscle use - Routine Cardiovascular Exam Cardiovascular: Present: S1, S2 - Routine Abdominal Exam Present: soft - Routine Skin Exam Present: intact Hem/Onc Consult Result - Labs CBC & Chem 7: 05/01/21 05:58 05/02/21 08:33 Labs: BMP 05/02/21 08:33 Sodium 145 Potassium 4.7 Chloride 115 H Carbon Dioxide 21 L BUN 49 H Creatinine 1.40 Calcium 9.3 Liver Function 05/02/21 Range/Units 08:33 Total Bilirubin 0.4 (0.0-1.0) mg/dL Direct Bilirubin 0.2 (0.0-0.5) mg/dL AST 87 H (5-31) U/L ALT 195 H (0-31) U/L Alkaline Phosphatase 546 H (39-117) U/L Albumin 3.3 L (3.5-5.0) g/dL Assessment and Plan Patient Active problem list reviewed?: Yes (1) Anemia due to blood loss Status: Acute Assessment and plan: 1. This is a 81-year-old woman with CLL, remote history of autoimmune hemolytic anemia as well as thrombocytopenia who is currently admitted for worsening anemia and multiple falls. Workup revealed heme-positive stools, EGD showed erosive gastritis and has been started on PPI therapy. Workup for hemolysis shows elevated LDH but normal bilirubin, normal haptoglobin but positive direct Kaykay test. Anemia is probably multifactorial. She may have had hemolysis which is now resolving as well as occult GI blood losses. She also has chronic renal insufficiency which could be contributing to her anemia. There is no need for steroid therapy at this time. CBC and LDH have to be closely monitored as outpatient upon discharge to evaluate for recurrent hemolysis. I thank you for this consultation. - Time Spent With Patient Time Spent with Patient (in minutes): 15
[2021-05-02 16:13] LABS: Lactate Dehydrogenase 284 U/L (122-220)
--- NOTE | 2021-05-02 19:13 | PC.NURSE ---
Patient 89 has 2 ordered units of blood (RBC's) but I did not administer them. This was after I consulted with Dr John who agreed not to give the patient, saying the patient was hemodynamically fine, and she would continue to monitor the patient's labs.
[2021-05-02] MEDS: Donepezil HCl 10 MG TABLET PO (20:23)
[2021-05-02] MEDS: Memantine HCl 10 MG TABLET PO (20:23)
[2021-05-02] MEDS: clonazePAM 1 MG TABLET PO (20:23)
--- NOTE | 2021-05-02 23:36 | PC.NURSE ---
Received report around 1900 from MELISSA Dang who told me that there were 2 units of RBC's ordered but that I was not to give them. She was told the same in report and was told that Dr John said not to give. Laurence did text Dr John who stated she did not order that but would assess and to not give the blood. I asked Laurence to chart this.
[2021-05-03 03:14] VITALS: BP 160/67; PULSE 52; RESP 18; TEMP 36.1; O2SAT 96
[2021-05-03] MEDS: Pantoprazole Sodium 40 MG/10 ML VIAL IVPUSH (06:09)
[2021-05-03 06:44] LABS: B Type Natriuretic Peptide 293 pg/mL (<100)
[2021-05-03 06:45] LABS: Alanine Aminotransferase 149 U/L (0-31); Albumin Level 3.3 g/dL (3.5-5.0); Alkaline Phosphatase 461 U/L (39-117); Anion Gap 15 (12-20); Aspartate Amino Transferase 51 U/L (5-31); Bilirubin Direct 0.3 mg/dL (0.0-0.5); Bilirubin Total 0.6 mg/dL (0.0-1.0); Blood Urea Nitrogen 46 mg/dL (9-16); Calcium 9.4 mg/dL (8.4-10.2); Carbon Dioxide 23 mmol/L (22-29); Chloride 109 mmol/L (96-108); Creatinine Clr Calc Pharmacy 30.3; Estimated Glomerular Filt Rate 38; Glucose Random 95 mg/dL (60-115); Potassium 3.9 mmol/L (3.3-5.1); Sodium 143 mmol/L (135-145); Total Protein 5.4 g/dL (6.5-8.0)
[2021-05-03 07:34] VITALS: BP 129/69; PULSE 55; RESP 20; TEMP 36.2; O2SAT 98
[2021-05-03 11:58] VITALS: BP 114/60; PULSE 64; RESP 20; TEMP 36.2; O2SAT 98
[2021-05-03] MEDS: lisinopriL 5 MG TABLET PO (12:26)
[2021-05-03] MEDS: amLODIPine Besylate 10 MG TABLET PO (12:26)
[2021-05-03] MEDS: hydrALAZINE HCl 50 MG TABLET 100 MG PO (12:26)
[2021-05-03] MEDS: 0.9 % Sodium Chloride Flush 3 ML SYRINGE IVFLUSH (12:27)
--- NOTE | 2021-05-03 14:37 | P.DS_ITS ---
DS: Providers Provider Date of Service: 05/03/21 Date of admission: 04/29/21 20:41 Date of discharge: 05/03/21 Primary care physician: Perlita Braun MD Consults: 04/29/21 20:42 Consult to Neurology Routine Consulting Provider: Flavio Gunderson Reason for consultation: frequent falls; slurred speech 04/29/21 20:46 Consult to Gastroenterology Routine Consulting Provider: Shekhar Azevedo Reason for consultation: GI bleed 05/01/21 11:31 Consult to Hematology / Oncology Routine Consulting Provider: Mary Anne Lima Reason for consultation: hemolytic anem1a Has provider been notified: Yes DS: Diagnosis Discharge Diagnosis (1) Anemia due to blood loss: Status: Acute DS: Summary Hospital Course Hospital Course: 81-year-old female with a past medical history of hypertension, hyperlipidemia, CAD, dementia, CLL, anemia, lives with the family presented to the hospital with a chief complaint of frequent falls Most of the history obtained from the patient, patient's , patient's daughter at bedside.? Per ER team patient on presentation noted to be mildly confused but mental status gradually improving.? At the time of my interview patient is alert and awake.? And mental status almost back to her baseline as per the family.? Reportedly patient has been feeling generally weak over the past 1 week and has had at least 4 episodes of falls.? She had 1 fall in the bathroom where she hit her head.? Reports that patient has chronic knee pains and left hip pain; which probably contributed to her falls.? Denies any loss of consciousness.? Denies any prodrom e.? Denies any postictal confusion.? Denies any seizure-like activities. ER course: Per ER team patient's exam was fairly benign but noted to have ecchymosis of the frontal scalp, bilateral leg ecchymosis, groin rash; urinalysis negative, chest x-ray negative; CT chest showed no evidence of pulmonary embolism, CT abdomen pelvis showed no acute findings; CT head and CT cervical spine showed no acute findings.? On labs noted to have hemoglobin of 5.9.? Guaiac positive.? Patient being transfused 2 units of blood.? CT chest also showed mild pleural effusion and findings concerning for CHF.? On labs noted to have elevated creatinine and elevated liver enzymes.? ER team also mentioned the patient had temperature of 93.8 degrees F on presentation-was placed on Donal Hugger with improvement in temperature 96 degrees F; urinalysis negative; CT showed no evidence of pneumonia.? On telemetry patient was noted to be bradycardic with first-degree AV block.? Admitted to the hospital for further management Hospital course Admitted to general medical floor and consult Neurology. Neurology felt the falls are multifactorial but suggested EEG to rule out seizure activities on the day of discharge, patient underwent EEG reading is pending at this time. She was seen by Physical therapy and thought to be appropriate for SNF however wishes to take patient home. Given her ambulatory status and his longstanding history of care for her I believe this to be the patient's best interest. She will be discharged to home and follow up with PCP in 2 weeks. Will call patient's with results of EEG Time Spent with Patient Time attestation: Total time spent providing and/or coordinating discharge services: Discharge coordination time: Greater than 30 minutes Quality: Stroke Does the patient have a stroke diagnosis?: No Physical Exam Vital Signs: Vital Signs: Last Vital Signs Temp 97.2 F 05/03/21 11:58 Pulse 64 05/03/21 11:58 Resp 20 05/03/21 11:58 BP 114/60 05/03/21 11:58 Pulse Ox 98 05/03/21 11:58 BMI result Body Mass Index 19.5 Const: Other: Awake confused Resp: Other: Clear to auscultation bilaterally Cardio: Other: No S4; positive S1-S2; no S3 murmurs rubs or gallops GI: Other: Soft nontender nondistended with normoactive bowel sounds Extrem: Other: No edema bilaterally DS: Data Data Completed and Pending Pending studies at discharge: Pending at discharge 05/01/21 13:05 Surgical [PTH] Routine Labs on day of discharge: Laboratory Results - last 24 hr 04/29/21 05/02/21 05/03/21 17:21 08:33 06:03 Sodium 143 Potassium 3.9 Chloride 109 H Carbon Dioxide 23 Anion Gap 15 BUN 46 H Creatinine 1.34 Estim Creat Clear Calc 30.3 Estimated GFR 38 Random Glucose 95 Calcium 9.4 Total Bilirubin 0.6 Direct Bilirubin 0.3 AST 51 H ALT 149 H Alkaline Phosphatase 461 H Lactate Dehydrogenase 284 H B-Natriuretic Peptide Total Protein 5.4 L Albumin 3.3 L Crossmatch See Detail Enhanced Crossmatch See Detail 05/03/21 06:03 Sodium Potassium Chloride Carbon Dioxide Anion Gap BUN Creatinine Estim Creat Clear Calc Estimated GFR Random Glucose Calcium Total Bilirubin Direct Bilirubin AST ALT Alkaline Phosphatase Lactate Dehydrogenase B-Natriuretic Peptide 293 H Total Protein Albumin Crossmatch Enhanced Crossmatch Preliminary micro results at discharge 04/29/21 16:49 Blood Culture - Preliminary Blood - Venous No growth after 48 hours. 04/29/21 16:49 Blood Culture - Preliminary Blood - Venous No growth after 48 hours. Discharge Plan Discharge Patient Disposition: Home, Self-Care Discharge Diagnosis: Syncope Referrals: [facility] [Other] - 1 Day (home with [facility] for nursing (diagnosis sign symptom management , medication reconcilation and home pt) pcp dr perlita park information only per our discussion [facility] financial counselors [phone] jimenez owens for information for secondary insurance for [facility] (medicaide) [facility] 2. [facility] [place] -[phone] FOR FURTHER INFORMATION REGARDING MEALS ON WHEELS, QUALITY REVIEW TRAINER TO ASSIST WITH BATHING, OR SOME ONE TO DO LAUNDRY OR COOKING,OR CLEANING , OR GROCERY SHOPPING , PLEASE CALL THEM WITH ANY QUESTIONS YOU MIGHT HAVE ) [facility] [Outside] - 1 Day (CUSTODIAL AND HOME PHYSICAL THERAPY) Perlita Braun MD [Primary Care Provider] - 1 Week Discharge Medications: New carvedilol 6.25 mg Tablet 6.25 mg PO BID Qty: 60 0RF Protocol: Hold for SBP/HR < HOLD for SBP < : 90 HOLD for HR < : 60 amlodipine 10 mg Tablet 10 mg PO DAILY Qty: 30 0RF Protocol: Hold for SBP< HOLD for SBP < : 90 hydralazine 50 mg Tablet 100 mg PO TID Qty: 180 0RF Protocol: Hold for SBP< HOLD for SBP < : 90 Continued lisinopril 5 mg tablet 1 tab PO DAILY 0RF amlodipine 10 mg tablet 10 mg PO BEDTIME 0RF hydrochlorothiazide 12.5 mg capsule 12.5 mg PO QAM 0RF hydralazine 100 mg tablet 100 mg PO TID Qty: 270 4RF clonazepam 0.5 mg tablet 1 mg PO BEDTIME 0RF calcitonin (salmon) 200 unit/actuation spray,non-aerosol See Rx Instructions .ROUTE .COMPLEX 0RF Rx Instructions: 1 SPRAY ALTERNATING NSTRILS memantine 10 mg tablet 10 mg PO BEDTIME 0RF donepezil 10 mg tablet 10 mg PO BEDTIME 0RF cholecalciferol (vitamin D3) 250 mcg (10,000 unit) capsule 250 mcg PO DAILY 0RF ascorbic acid (vitamin C) 1,000 mg tablet 1 g PO DAILY 0RF Centrum Silver 0.4-300-250 mg-mcg-mcg tablet 1 tab PO DAILY 0RF carvedilol [Coreg] 6.25 mg tablet 6.25 mg PO BID Qty: 180 3RF Rx Instructions: must administer with a meal/food Held aspirin 81 mg tablet,delayed release (DR/EC) 81 mg PO BEDTIME 0RF Hold Instructions: Resume on 05/07/21. Discontinued Repatha SureClick 140 mg/mL pen injector 140 mg subcut Q2W 90 Days Qty: 7 3RF Rx Instructions: DUE 01/02 Discharge Orders: Discharge Order (Routine); Ordered 05/03/21 Ordered By: Jerardo Dewitt Diet: advance to usual diet Activity on Discharge: As tolerated Stand Alone Forms: Patient Portal Discharge page Care Plan Goals: Follow-up with PCP. Resume home medical regimen at this time. Health Concerns: EEG done; results pending. Will call when available Plan of Treatment: Follow-up with PCP in 1-2 weeks as well as Oncology Assessment: As per discharge summary
[2021-05-03 15:37] VITALS: BP 128/73; PULSE 61; RESP 20; TEMP 36.1; O2SAT 96
--- NOTE | 2021-05-03 15:39 | MHC.CM.PN ---
NURSE SOLAR PHOTOVOLTAIC SYSTEMS ENGINEER NOTE MET WITH PATIENT AND HER HUSABDN , SHE IS EXPECTING TO BE DISCHARGED HOME TODAY AND ACCEPTIONG OF HAVING THE [facility] , DISCHARGE PLAN HOME WITH [facility] FOR NRUSING AND HOME PT D/C INSTRUCTIONS AND SUMMARY SENT VIA Kanshu TO THEM EDUCATED PT/ ABOUT SERVICES THEY MAY BE ELIGEABLE FOR [facility] AND WROTE THE NUMBER FOR THEM , ALSO TH=O [facility] FOR CHECKING TO SEE IF THEY [facility] ELIGEABILITY [facility]ITER[facility] FOR SECOND INS TRANSPORTATION FHUSBAND PCP PATIENT TO CALL FOR [facility] DISCHARGE FOLLOW UP[ ALL DISCHAGRE PAPERWORK COMPLETED MEDICARE IMMM UPDATED
--- NOTE | 2021-05-04 12:38 | P.F2F_ITS ---
Service Date Service Date: 05/04/21 Encounter Date of encounter: 05/03/21 Encounter: [place] Reasons for Services Signs and symptoms assessed: deconditioning with unsteady gait/poor safety awareness Reason for senior living: neurological assessment and medication management Reason for physical therapy: home safety and mobility, gait/transfer training and ADL training Homebound: Leaving the home is medically contraindicated at this time without the asist of a device and/or another person due th the listed conditions above and below. Reason homebound: unsteady gait / fall risk Certification: Based on the above findings, I certify that this patient is confined to the home and needs intermittent senior living care, physical therapy and/or speech therapy, or continues to need occupational therapy. The patient is under my care, and I have initiated the establishment of the plan of care. The patient will be followed by a physician who will periodically review the plan of care.
== END 2021-05-03 15:58 | disposition home health service (06) | DRG 377 ==
LOC: HO.ED 20:42 → HO.EDOVER 20:50 → HO.S3 05-01 20:03
PROVIDERS: Hospitalist; Internal Medicine; Internal Medicine Gastroenterology; Physician Assistant; Admitting Provider Hospitalist; Emergency Provider Internal Medicine; PCP Family Medicine; Visit Provider Hospitalist
PROC: 0DJ08ZZ Inspection of Upper Intestinal Tract, Via Natural or Artificial Opening Endoscopic (ICD-10-PCS; CPT 43235; principal; 2021-05-01 13:20)
DX: K29.71 Gastritis, unspecified, with bleeding (principal); G92.8 Other toxic encephalopathy; N17.9 Acute kidney failure, unspecified; C91.10 Chronic lymphocytic leukemia of B-cell type not having achieved remission; R68.0 Hypothermia, not associated with low environmental temperature; K29.81 Duodenitis with bleeding; I25.10 Atherosclerotic heart disease of native coronary artery without angina pectoris; R29.6 Repeated falls; I25.2 Old myocardial infarction; N18.30 Chronic kidney disease, stage 3 unspecified; D63.1 Anemia in chronic kidney disease; D50.0 Iron deficiency anemia secondary to blood loss (chronic); Z91.81 History of falling; I44.0 Atrioventricular block, first degree; Z20.822 Contact with and (suspected) exposure to COVID-19; Z79.82 Long term (current) use of aspirin; Z79.899 Other long term (current) drug therapy; Z66 Do not resuscitate
CPT/HCPCS: 36415; 36430; 70450; 71275; 72125; 73560; 74177; 80048; 80053; 80061; 80076; 81001; 82272; 82550; 82728; 83010; 83540; 83605; 83615; 83690; 83735; 83880; 84436; 84443; 84484; 85014; 85018; 85025; 85027; 85045; 85379; 85610; 86850; 86880; 86900; 86901; 86920; 86921; 87040; 87635; 88305; 88342; 92610; 93005; 93308; 93970; 95816; 96361; 96365; 96367; 96375; 97116; 97162; 97165; 97530; 97535; 99285; 99291; J0696; J1940; J2543; P9016; Q9967

== ENCOUNTER 2021-05-07 13:07 | Inpatient (IN) | payer MEDICARE, SELFPAY ==
[2021-05-07] VITALS (25 sets, daily range): BP systolic 80–170; BP diastolic 36–61; PULSE 30–90; RESP 11–19; TEMP 30.2–36.2; O2SAT 93–99; BMI 21.0; BMI 22.4
--- NOTE | ~2021-05-07 | CT_ITS ---
EXAMINATION: CT HEAD WITHOUT CONTRAST CLINICAL INFORMATION: Altered levels of consciousness. COMPARISON: CT head dated from 04/29/2021. TECHNIQUE: Contiguous axial imaging was performed from the skull base to vertex without intravenous administration of contrast. This CT examination was performed using dose optimization techniques as appropriate, variously including the following: *Automated exposure control *Adjustment of mA and/or kV according to patient size (this includes techniques or standardized protocols for targeted exams where dose is matched to indication/reason for exam; i.e. extremities or head) *Use of iterative reconstruction technique DLP: 869 mGy-cm FINDINGS: There is no evidence of acute intracranial hemorrhage or edematous territorial infarction. A few foci of hypoattenuation in the periventricular and deep white matter are consistent with mild microangiopathy. Chronic lacunar infarcts in the left basal ganglia, stable since 2019. Chandler-white matter differentiation is preserved. Proportional prominence of the ventricles and sulcal spaces. No evidence for obstructive hydrocephalus. No abnormal mass effect or midline shift. No extra-axial fluid collections. Redemonstration of a small left frontal scalp contusion. No calvarial fracture. The mastoid air cells and paranasal sinuses are clear. CT/CT head/brain wo con IMPRESSION: Redemonstration of a scalp hematoma adjacent to the left frontal lobe. No acute intracranial abnormalities.
--- NOTE | ~2021-05-07 | XR_ITS ---
EXAMINATION: XR CHEST CLINICAL INFORMATION: Bradycardia COMPARISON: Previous chest x-ray most recent from earlier the same day TECHNIQUE: Frontal view of the chest was obtained. FINDINGS: There is a right jugular line with tip projecting over the SVC. The cardiac and mediastinal contours are normal. There is question of pulmonary venous redistribution. The lungs are otherwise clear. There is no pleural effusion or pneumothorax. XR/XR chest 1V IMPRESSION: Right jugular line tip projects over SVC. No pneumothorax. Question pulmonary venous redistribution.
--- NOTE | ~2021-05-07 | CT_ITS ---
EXAMINATION: CT CHEST, ABDOMEN AND PELVIS WITHOUT CONTRAST. CLINICAL INFORMATION: Reason for Exam trauma . COMPARISON: CT abdomen pelvis 04/29/[address] angiogram chest 04/29/2021. TECHNIQUE: Multidetector volumetric imaging was performed from the thoracic inlet through the pubic symphysis without IV contrast. Oral contrast: No Sagittal and coronal reformatted images were obtained on the technologist workstation. This CT examination was performed using dose optimization techniques as appropriate, variously including the following: *Automated exposure control *Adjustment of mA and/or kV according to patient size (this includes techniques or standardized protocols for targeted exams where dose is matched to indication/reason for exam; i.e. extremities or head) *Use of iterative reconstruction technique Total exam dose-length product: Chest 281 mGy-cm, abdomen and pelvis 642 mGy-cm FINDINGS: CHEST: VASCULAR: Evaluation is extremely limited without IV contrast. Calcific changes present in the aorta and great vessels. No aneurysm is seen. No aortic hematoma is seen. AORTIC ISTHMUS: Normal. MEDIASTINUM: No mediastinal fluid or hematoma. No hilar or mediastinal lymphadenopathy. The heart is mildly enlarged LUNG: No nodules, mass, or focal consolidation. Again seen is slight increased interstitial markings throughout the lungs which could be secondary to mild vascular congestion. Bibasilar atelectasis is seen. PLEURA: No pleural effusion. No pneumothorax. No pleural mass or thickening. CHEST WALL/AXILLA: Unremarkable. ABDOMEN/PELVIS : LIVER, GALLBLADDER, AND BILIARY TREE: The liver is normal in size, and shape. Previously seen mild periportal edema cannot be appreciated without contrast. No ascites.. No focal hepatic lesion or biliary ductal dilatation is present. The gallbladder, partially obscured by artifact from overlying hardware, is unremarkable with no evidence of radiopaque gallstones, gallbladder wall thickening, or obvious pericholecystic inflammatory changes. PANCREAS: Unremarkable. SPLEEN: Unremarkable. ADRENAL GLANDS: Unremarkable. KIDNEYS AND URETERS: The kidneys are normal in size, shape, and attenuation. Bilateral benign Bosniak class I renal cysts are present, not as well seen as previously.. No further follow-up or imaging is needed. Again seen is a tiny punctate calcification in the mid left kidney consistent with a nonobstructing calculus (15:28). Vascular calcifications are seen bilaterally. No hydronephrosis, hydroureter, or ureteral calculi seen. No perinephric stranding. BLADDER: Cannot be evaluated secondary to marked artifact from hip prostheses of Darby catheter is present. GASTROINTESTINAL TRACT: Again seen is extensive colonic diverticular changes are present in the colon especially the sigmoid. No definite evidence of acute diverticulitis. The small and large bowel are otherwise unremarkable. The appendix is unremarkable. ABDOMINAL WALL: No significant hernia is appreciated. A new decubitus ulcer appears to be present with air extending down to the sacrum (12:63-70). LYMPH NODES: No gross retroperitoneal adenopathy. Previously seen fluid in the presacral region has decreased. VASCULAR: There is marked calcific atherosclerotic changes present in the aorta and iliofemoral vessels. No aneurysm is seen. PELVIC VISCERA: A small amount of free fluid is present in the pelvis. There is marked artifact from hip prostheses and pelvic viscera are obscured by beam hardening artifact. OSSEOUS STRUCTURES: No acute fractures are seen. Pedicular screws are present at multiple levels. Bilateral hip prostheses are present. CT/CT abdomen pelvis wo con IMPRESSION: The only interval change when compared to the study of 04/29/2021 is a new sacral decubitus ulcer. No evidence of a traumatic injury from the patient's fall. Incidental findings as described above.
--- NOTE | ~2021-05-07 | XR_ITS ---
EXAMINATION: XR CHEST CLINICAL INFORMATION: Bradycardia COMPARISON: Chest 01/02/2021 TECHNIQUE: Frontal view of the chest was obtained. FINDINGS: The lungs are hyperinflated but clear of acute process. The heart size and pulmonary vascularity is normal. No gross bony abnormality seen. There is hardware in mid lumbar spine. XR/XR chest 1V IMPRESSION: Well-inflated lungs without any acute process.
--- NOTE | 2021-05-07 13:19 | ECG_ITS ---
Test Reason : HYPOTENSIVE Blood Pressure : / mmHG Vent. Rate : 040 BPM Atrial Rate : 040 BPM P-R Int : 234 ms QRS Dur : 116 ms QT Int : 594 ms P-R-T Axes : 093 076 068 degrees QTc Int : 484 ms Marked sinus bradycardia with sinus arrhythmia with 1st degree A-V block Incomplete left bundle branch block Minimal voltage criteria for LVH, may be normal variant ( Arnett product ) Abnormal ECG When compared with ECG of 29-APR-2021 16:07, QRS duration has increased ST elevation now present in Lateral leads Nonspecific T wave abnormality no longer evident in Lateral leads Referred By: Sterling Roman Electronically Signed By:JESUS PEDRO
--- NOTE | 2021-05-07 13:20 | ED_ITS ---
HPI - General Adult General Chief complaint: Arrhythmia/Palpitations Stated complaint: LOW HR 30'S BP 80'S PER [facility],VITALS STABLE @PER EMS Time Seen by Provider: 05/07/21 13:19 Source: patient and EMS Limitations: no limitations History of Present Illness HPI narrative: This is an 81-year-old female who was assessed by visiting nurse today and was found to be lethargic, her heart rate in the 30s. The patient had been seen here last week for a fall And admitted. Patient lives at home with her . EMS found a blood pressure in the 80s and given normal saline bolus 500 mL as well as 0.5 mg of atropine with her heart rate and blood pressure both improved. Patient is lethargic but denies any headache, chest pain, shortness o f breath, dizziness, abdominal pain, vomiting, diarrhea. The patient denies any recent falls. the patient is has been later stated that their home is not cold and the patient has not had any cold exposure, wears adequate clothing Related Data Home Medications Medication Instructions Recorded Confirmed ascorbic acid (vitamin C) 1,000 mg 1,000 mg PO DAILY tab 03/09/20 05/07/21 tablet aspirin 81 mg tablet,delayed 81 mg PO BEDTIME 03/09/20 05/07/21 release cholecalciferol (vitamin D3) 250 250 mcg PO DAILY 03/09/20 05/07/21 mcg (10,000 unit) capsule clonazepam 0.5 mg tablet 1 mg PO BEDTIME 03/09/20 05/07/21 donepezil 10 mg tablet 10 mg PO BEDTIME 03/09/20 05/07/21 memantine 10 mg tablet 10 mg PO BEDTIME 03/09/20 05/07/21 nrbgtfuq-say-wscrx acid 0.4 1 tab PO DAILY 03/09/20 05/07/21 mg-lycopene 300 mcg-lutein 250 mcg tablet (Centrum Silver) hydrochlorothiazide 12.5 mg capsule 12.5 mg PO DAILY 10/02/20 05/07/21 lisinopril 5 mg tablet 1 tab PO DAILY 01/02/21 05/07/21 Lactobacillus acidophilus 10 10,000 mmu cells PO DAILY 05/07/21 05/07/21 billion cell capsule (Probiotic) amlodipine 10 mg tablet 10 mg PO BEDTIME 05/07/21 05/07/21 calcitonin (salmon) 200 1 spray INTRANASAL DAILY 05/07/21 05/07/21 unit/actuation nasal spray evolocumab 140 mg/mL subcutaneous 140 mg SUBCUT Q2W 05/07/21 05/07/21 pen injector (Sheree Madrigal) ferrous sulfate 325 mg (65 mg 325 mg PO DAILY 05/07/21 05/07/21 iron) tablet Previous Rx's Medication Instructions Recorded hydralazine 100 mg tablet 100 mg PO TID #270 tab 10/02/20 carvedilol 6.25 mg tablet (Coreg) 6.25 mg PO BID #180 tab 02/13/21 Allergies Allergy/AdvReac Type Severity Reaction Status Date / Time diazepam [DIAZEPAM] Allergy Severe RASH Verified 04/09/21 15:13 Gwrcgdo-QWM-GuG Reductase Allergy Severe Muscle Pain Verified 04/09/21 15:13 Inhibitor [[id number]-FIM REDUCTASE INHIBITOR] Review of Systems Review of Systems: Yes all other systems are reviewed and are negative Constitutional: Constitutional: Reports as per HPI and Denies fever(s) Eyes: Eyes: Reports as per HPI and Reports no additional eye complaints ENT: Reports system reviewed and no additional complaints, except as documented, Reports as per HPI, Denies nasal congestion, Denies nasal discharge and Denies sore throat Cardiovascular: Cardiovascular: Reports as per HPI, Denies chest pain and Denies dyspnea Respiratory: Respiratory: Reports as per HPI, Denies cough and Denies dyspnea Gastrointestinal: Gastrointestinal: Reports as per HPI, Denies abdominal pain, Denies diarrhea and Denies vomiting Genitourinary: Genitourinary: Reports as per HPI, Denies hematuria, Denies urinary frequency and Denies dysuria Musculoskeletal: Musculoskeletal: Reports no additional musculoskeletal complaints and Denies numbness Integumentary/Breasts: Skin/Breast: Reports as per HPI and Denies rash Neurologic: Reports as per HPI, Denies focal weakness and Denies numbness Psychiatric: Psychiatric: Reports no additional psychiatric complaints and Reports as per HPI Endocrine: Endocrine: Reports no additional endocrine complaints and Reports as per HPI Hematologic/Lymphatic: Hematologic/Lymphatic: Reports no additional hematologi c/lymphatic complaints, Reports as per HPI and Reports other (No peripheral edema) [facility] Past Medical History Medical History Anemia CLL (chronic lymphocytic leukemia) Coronary artery calcification seen on CAT scan COVID-19 vaccine series completed Dementia Essential hypertension Hx of reduction of closed dislocation Hyperlipidemia NSTEMI (non-ST elevated myocardial infarction) Peripheral artery disease Peripheral vascular disease Pulmonary fibrosis Ulcerative colitis Vertigo Surgical History H/O carotid endarterectomy H/O colonoscopy History of hip replacement History of liver biopsy History of revision of total hip arthroplasty Hx of lumbar discectomy S/P popliteal-distal bypass Family History Family History Father No problems noted. Mother No problems noted. Social History Social History Household Members: Family Housing: House Are you a primary weekend caregiver to a significant other at home: No Do you presently have visiting nurse or other home services: No Alcohol intake: current Alcohol intake frequency: does not drink Alcohol type: wine Patient Tobacco Use Status: Never used Tobacco Tobacco use type: Cigarette Years Smoked: 62 e-Cigarette/Vaping Use: Currently Using Second Hand Smoke Exposure: No Advance Directives: Yes Advance Directives on File: Yes Advance Directives Date on File: 05/06/20 service: No Current occupational status: retired 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 Physical Exam ED Vital Signs: Vital Signs - 24 hr 05/07/21 13:27 05/07/21 13:57 05/07/21 14:00 Temperature 86.4 F L 86.5 F L Pulse Rate 46 L 43 L 45 L Respiratory Rate 14 11 L Blood Pressure 100/36 L 101/37 L Pulse Oximetry 99 98 05/07/21 14:01 05/07/21 14:07 05/07/21 14:34 Temperature 86.5 F L 86.7 F L Pulse Rate 38 L 43 L 45 L Respiratory Rate 19 15 Blood Pressure 92/44 L 102/38 L 88/43 L Pulse Oximetry 97 97 05/07/21 14:38 05/07/21 14:48 05/07/21 15:37 Temperature 88 F L 88.3 F L 90.1 F L Pulse Rate 44 L 45 L 45 L Respiratory Rate 16 15 16 Blood Pressure 88/43 L 104/38 L 108/38 L Pulse Oximetry 95 97 94 05/07/21 16:12 Temperature 91.6 F L Pulse Rate 64 Respiratory Rate 17 Blood Pressure 113/46 L Pulse Oximetry 97 BMI result Body Mass Index 21.0 Const Other: Patient initially seemed lethargic but did answer questions appropriately, sta remi that she only felt crooked and when in fact she was listing to the left in bed. General: no acute distress Orientation/consciousness: patient oriented x3 [facility] Head: Yes normal to inspection General nose exam: Normal external nose present Mouth: moist mucous membranes Throat: Yes posterior oropharynx normal, Yes tonsils normal and Yes uvula midline Eyes Other: Somewhat proptotic Eyelids: Yes eyelids normal Conjunctivae: conjunctivae normal Pupils: Equal, round and reactive pupils present Neck Neck: Yes supple Resp Effort & Inspection: normal respiratory effort Auscultation: clear to auscultation bilaterally Cardio Rate: abnormal rate and bradycardic Rhythm: regular rhythm Heart sounds: S1 normal heart sound present, S2 normal heart sound present, no gallops, no murmurs and no rubs GI Inspection: No distended Palpation (GI): Soft to palpation and nontender Auscultation: normal bowel sounds Skin General skin exam: other (Warm and dry) Lesions: other Neuro General: patient oriented x3 and CN's II-XI intact bilaterally Cranial nerves: Yes Equal, round and reactive pupils present Extrem General: Yes no pedal edema Psych Affect: normal affect Attitude: cooperative Procedures Central Line Placement Right IJ: Time Out Performed: Yes Patient Placed on Monitor/Pulse Ox: Yes MD Prep: mask, gown and gloves Central Line Prep: Chlorhexidine scrub Local Anesthetic: lidocaine 1% Amount of anesthesia used (mL): 4 Ultrasound Used for Placement: Yes Central Line Lumen Inserted: triple Post Procedure: sutured in place, good blood return, all ports aspirated, flushed, capped and sterile dressing applied Post Procedure X-Ray: tip of catheter in good position and no pneumothorax seen Patient Tolerated Procedure: well Complications: none Medical Decision Making MDM Narrative Medical decision making narrative: Patient with profound hypothermia and bradycardia with a heart rate in the 30s, sinus bradycardia, with hypotension, treated initially the field with normal saline bolus as well as atropine 0.5 mg IV. Patient was given additional atropine here as her heart rate did trend back down into the 40s in her blood pressure trended back down to the 90s. Levophed was started and she was given additional normal saline bolus of 500 mL. The patient had been discharged 4 days ago after admission for bradycardia and hypothermia and acute on chronic anemia, felt to be due to blood loss but also possibly due to hemolysis. The patient has a hematocrit of 25 today which is around the level she was at when she was discharged. The patient's renal function has worsened since her admission. Patient has a normal TSH. Sepsis is a consideration however the patient has a negative chest x-ray and negative urinalysis, was initially alert and interactive, did not appear septic clinically. Patient was treated with warm IV fluids as well as a Donal Hugger and her heart rate and temperature have improved, though she has also been on low-dose Levophed. A right-sided IJ was placed since she is on a pressor agent. This was discussed with her prior to the procedure, by phone. Has been was somewhat unclear about her DNR status, said they did not want heroic measures, would not want a ventilator Though he qualified that if it were temporary it might be okay.. Case is discussed with Dr. Bustos of the touring production manager service. Patient's records from last admission were reviewed. The patient had had her aspirin. But from the discharge summary it appears that her carvedilol had been continued. Patient had undergone EGD during her stay and was with [facility] as part of her fall workup. Critical care time for this life-threatening illness exclusive of all other billable procedures was approximately 85 minutes including initial evaluation of the patient, ordering tests, x-ray interpretation, EKG interpretation, medical consultation, documentation, reevaluation. Lab Data Lab results reviewed: Yes I reviewed the patient's lab results. Result diagrams: 05/07/21 14:10 05/07/21 14:10 Labs: Lab Results 05/07/21 05/07/21 05/07/21 Range/Units 14:10 14:10 14:10 WBC 6.0 (4.8-10.8) X10*3/uL RBC 2.59 L (4.20-5.50) X10*6/uL Hgb 7.7 L (12.0-16.0) g/dl Hct 25.1 L (37.0-47.0) % MCV 96.9 (80.0-98.0) fL MCH 29.7 (27.0-33.0) pg MCHC 30.7 L (31.0-35.0) g/dl RDW 14.9 (11.0-16.0) % Plt Count 119 L (160-400) X10*3/uL MPV 11.7 (9.4-12.3) fL Immature Gran % (Auto) 0.5 H (0.0-0.4) % Neut % (Auto) 79.2 H (45-73) % Lymph % (Auto) 8.1 L (20-40) % [place] % (Auto) 8.4 (2-11) % Eos % (Auto) 3.5 (0-4) % Baso % (Auto) 0.3 (0-2) % Lymph # (Auto) 0.5 L (1.2-4.9) X10*3/uL [place] # (Auto) 0.5 (0.1-1.2) X10*3/uL Eos # (Auto) 0.2 (0.0-0.4) X10*3/uL Baso # (Auto) 0.0 (0.0-0.2) X10*3/uL Abs Immat Gran (auto) 0.03 (0.00-0.03) X10*3/uL Absolute Neuts (auto) 4.7 (2.0-8.3) x10*3/uL Absolute Nucleated RBC 0.000 (0.0-0.012) X10*3/uL Nucleated RBC % (auto) 0.0 (0.0-0.2) /100WBC PT (9.9-13.0) SEC INR (0.9-1.1) APTT (24.1-38.0) SEC Sodium 141 (135-145) mmol/L Potassium 4.3 (3.3-5.1) mmol/L Chloride 112 H (96-108) mmol/L Carbon Dioxide 19 L (22-29) mmol/L Anion Gap 14 (12-20) BUN 64 H (9-16) mg/dL Creatinine 1.91 H (0.5-1.4) mg/dL Estim Creat Clear Calc 22.2 Estimated GFR 25 Random Glucose 95 (60-115) mg/dL Lactic Acid (0.5-2.0) mmol/L Calcium 8.6 D (8.4-10.2) mg/dL Total Bilirubin < 0.2 (0.0-1.0) mg/dL AST 49 H (5-31) U/L ALT 84 H (0-31) U/L Alkaline Phosphatase 309 H D (39-117) U/L Troponin I High Sens 3.6 (<3.5-17.0) ng/L Total Protein 4.8 L (6.5-8.0) g/dL Albumin 2.9 L (3.5-5.0) g/dL TSH 1.69 (0.32-4.0) uIU/mL Urine Color Urine Appearance Urine pH (5.0-8.0) Ur Specific [place] (1.005-1.025) Urine Protein (NEG-TRACE) MG/DL Urine Glucose (UA) (NEG) MG/DL Urine Ketones (NEG) MG/DL Urine Blood (NEG) Urine Nitrite (NEG) Ur Leukocyte Esterase (NEG) Urine RBC (0) /HPF Urine WBC (0-4) /HPF Ur Squamous Epith Cells /LPF Urine Bacteria /LPF 05/07/21 05/07/21 05/07/21 Range/Units 14:10 15:23 15:23 WBC (4.8-10.8) X10*3/uL RBC (4.20-5.50) X10*6/uL Hgb (12.0-16.0) g/dl Hct (37.0-47.0) % MCV (80.0-98.0) fL MCH (27.0-33.0) pg MCHC (31.0-35.0) g/dl RDW (11.0-16.0) % Plt Count (160-400) X10*3/uL MPV (9.4-12.3) fL Immature Gran % (Auto) (0.0-0.4) % Neut % (Auto) (45-73) % Lymph % (Auto) (20-40) % [place] % (Auto) (2-11) % Eos % (Auto) (0-4) % Baso % (Auto) (0-2) % Lymph # (Auto) (1.2-4.9) X10*3/uL [place] # (Auto) (0.1-1.2) X10*3/uL Eos # (Auto) (0.0-0.4) X10*3/uL Baso # (Auto) (0.0-0.2) X10*3/uL Abs Immat Gran (auto) (0.00-0.03) X10*3/uL Absolute Neuts (auto) (2.0-8.3) x10*3/uL Absolute Nucleated RBC (0.0-0.012) X10*3/uL Nucleated RBC % (auto) (0.0-0.2) /100WBC PT 11.0 (9.9-13.0) SEC INR 1.0 (0.9-1.1) APTT 40.3 H (24.1-38.0) SEC Sodium (135-145) mmol/L Potassium (3.3-5.1) mmol/L Chloride (96-108) mmol/L Carbon Dioxide (22-29) mmol/L Anion Gap (12-20) BUN (9-16) mg/dL Creatinine (0.5-1.4) mg/dL Estim Creat Clear Calc Estimated GFR Random Glucose (60-115) mg/dL Lactic Acid < 0.2 L (0.5-2.0) mmol/L Calcium (8.4-10.2) mg/dL Total Bilirubin (0.0-1.0) mg/dL AST (5-31) U/L ALT (0-31) U/L Alkaline Phosphatase (39-117) U/L Troponin I High Sens (<3.5-17.0) ng/L Total Protein (6.5-8.0) g/dL Albumin (3.5-5.0) g/dL TSH (0.32-4.0) uIU/mL Urine Color YELLOW Urine Appearance CLEAR Urine pH 5.0 (5.0-8.0) Ur Specific [place] 1.025 (1.005-1.025) Urine Protein 1+ H (NEG-TRACE) MG/DL Urine Glucose (UA) NEG (NEG) MG/DL Urine Ketones NEG (NEG) MG/DL Urine Blood NEG (NEG) Urine Nitrite NEG (NEG) Ur Leukocyte Esterase NEG (NEG) Urine RBC 0 (0) /HPF Urine WBC 0 (0-4) /HPF Ur Squamous Epith Cells NONE /LPF Urine Bacteria NONE /LPF Imaging Data Chest x-ray: Radiologist's impression: IMPRESSION: Well-inflated lungs without any acute process. ECG Data Attestation: I personally reviewed and interpreted this ECG as follows: Interpretation: sinus bradycardia with a rate of 40. First-degree AV block. J-point elevation versus Bower waves present in leads V4 through V6. Four hundred eight progression. Discharge Plan Discharge Clinical Impression: Bradycardia, Anemia, Hypothermia, Acute hypotension, Chronic kidney failure Patient Disposition: Admitted As Inpatient Prescriptions: No Action lisinopril 5 mg tablet 1 tab PO DAILY 0RF calcitonin (salmon) 200 unit/actuation spray,non-aerosol 1 spray intranasal DAILY 0RF ferrous sulfate 325 mg (65 mg iron) Tablet 325 mg PO DAILY 0RF Probiotic 10 billion cell Capsule 10,000 mmu cells PO DAILY 0RF Repatha SureClick 140 mg/mL Pen Injector 140 mg SUBCUT Q2W 0RF amlodipine 10 mg tablet 10 mg PO BEDTIME 0RF Protocol: Hold for SBP< HOLD for SBP < : 90 hydrochlorothiazide 12.5 mg capsule 12.5 mg PO DAILY 0RF hydralazine 100 mg tablet 100 mg PO TID Qty: 270 4RF clonazepam 0.5 mg tablet 1 mg PO BEDTIME 0RF memantine 10 mg tablet 10 mg PO BEDTIME 0RF donepezil 10 mg tablet 10 mg PO BEDTIME 0RF aspirin 81 mg tablet,delayed release (DR/EC) 81 mg PO BEDTIME 0RF Hold Instructions: Resume on 05/07/21. cholecalciferol (vitamin D3) 250 mcg (10,000 unit) capsule 250 mcg PO DAILY 0RF ascorbic acid (vitamin C) 1,000 mg tablet 1,000 mg PO DAILY 0RF Centrum Silver 0.4-300-250 mg-mcg-mcg tablet 1 tab PO DAILY 0RF carvedilol [Coreg] 6.25 mg tablet 6.25 mg PO BID Qty: 180 3RF Rx Instructions: must administer with a meal/food
[2021-05-07] MEDS: Atropine Sulfate 1 MG/10 ML SYRINGE 0.5 MG IVPUSH (13:57)
--- NOTE | 2021-05-07 14:02 | PC.NURSE ---
ATROPINE GIVEN AND LEVOPHED STARTED FOR HR IN UPPER 30'S AND BP 92/44, PT SLEEPING AND AWAKENS W VERBAL STIM BUT QUICKLY BACK TO SLEEP, INCONTINENT OF STOOL AND CLEANED, OPEN SORE ON COCCYX AREA, MD TOOK PHOTO, BRUISING TO FACE AND B/L LE'S, SB ON MONITOR, 2ND IV PLACED 18 R AC, EMS 20 L AC, RECEIVED 650ML NS VIA EMS, LEVOPHED INFUSING VIA 18, MD AWARE AND WANTS IT TO GO IN PERIPHERALLY FOR NOW AND HE WILL PLACE A CENTRAL LINE SOON
[2021-05-07 14:15] LABS: MANUAL DIFF FLAG NO
[2021-05-07 14:31] LABS: Basophils Percent Auto 0.3 % (0-2); Eosinophils Absolute Auto 0.2 X10*3/uL (0.0-0.4); Eosinophils Percent Auto 3.5 % (0-4); Hematocrit 25.1 % (37.0-47.0); Hemoglobin 7.7 g/dl (12.0-16.0); Imm Gran Abs Auto 0.03 X10*3/uL (0.00-0.03); Imm Gran Pct Auto 0.5 % (0.0-0.4); Lymphocytes Absolute Auto 0.5 X10*3/uL (1.2-4.9); Lymphocytes Percent Auto 8.1 % (20-40); Mean Corpuscular HGB Conc 30.7 g/dl (31.0-35.0); Mean Corpuscular Hemoglobin 29.7 pg (27.0-33.0); Mean Corpuscular Volume 96.9 fL (80.0-98.0); Mean Platelet Volume 11.7 fL (9.4-12.3); Monocytes Absolute Auto 0.5 X10*3/uL (0.1-1.2); Monocytes Percent Auto 8.4 % (2-11); Neutrophils Absolute Auto 4.7 x10*3/uL (2.0-8.3); Neutrophils Percent Auto 79.2 % (45-73); Platelet Count 119 X10*3/uL (160-400); Red Blood Count 2.59 X10*6/uL (4.20-5.50); Red Cell Distribution Width 14.9 % (11.0-16.0)
--- NOTE | 2021-05-07 14:48 | PC.NURSE ---
MD PREPPING FOR CENTRAL LINE. LEVOPHED INCREASED BY 0.02, SLEEEPING, SB ON MONITOR 45-47, TEMP SENSING DARNELL PLACED, NOT ENOUGH URINE OUTPUT TO SEND. MD WILL ORDER 500ML NS BOLUS AND STARTED AT THIS TIME
[2021-05-07 14:56] LABS: Troponin-I High Sensitivity 3.6 ng/L (<3.5-17.0)
[2021-05-07 15:02] LABS: Alanine Aminotransferase 84 U/L (0-31); Albumin Level 2.9 g/dL (3.5-5.0); Alkaline Phosphatase 309 U/L (39-117); Anion Gap 14 (12-20); Aspartate Amino Transferase 49 U/L (5-31); Bilirubin Total < 0.2 mg/dL (0.0-1.0); Blood Urea Nitrogen 64 mg/dL (9-16); Calcium 8.6 mg/dL (8.4-10.2); Carbon Dioxide 19 mmol/L (22-29); Chloride 112 mmol/L (96-108); Creatinine Clr Calc Pharmacy 22.2; Estimated Glomerular Filt Rate 25; Glucose Random 95 mg/dL (60-115); Lactic Acid < 0.2 mmol/L (0.5-2.0); Potassium 4.3 mmol/L (3.3-5.1); Sodium 141 mmol/L (135-145); Total Protein 4.8 g/dL (6.5-8.0)
[2021-05-07] MEDS: 0.9 % Sodium Chloride 500 ML 999 ML IV (15:02)
[2021-05-07 15:11] LABS: TSH reflex Free T4 1.69 uIU/mL (0.32-4.0)
--- NOTE | 2021-05-07 15:27 | MHC.CM.ED ---
Received telephone call from [facility] stating patient is active with their agency. T/W explained patient is currently on a Levophed drip and anticipate patient will be admitted to ICU. Referral made [facility] so [facility] can follow patient. Continue to monitor for d/c needs.
[2021-05-07 15:32] LABS: Appearance Urine CLEAR; Color Urine YELLOW; Glucose Urine UA NEG (NEG); Leukocyte Esterase Urine NEG (NEG); Nitrite Urine NEG (NEG); Specific Gravity - Urine 1.025 (1.005-1.025); UACC Culture Trigger NO; Urine Blood NEG (NEG); Urine Ketones NEG (NEG); Urine Protein 1+ MG/DL (NEG-TRACE)
[2021-05-07 15:39] LABS: Partial Thromboplastin Time 40.3 SEC (24.1-38.0)
--- NOTE | 2021-05-07 15:57 | PC.NURSE ---
CENTRAL LINE PLACED BY DR TALAMANTES, PT TOLERATED WELL REMAINED SB 40-50'S EXCEPT WHEN GUIDEWIRE INSERTED AND THEN HAD FREQUENT PVC'S FOR APPROX 20-30 SECONDS, PT NOW SLEEPING, AWARE OF PERSON AND PLACE BUT STILL SLOW TO RESPOND, DENIES PAIN OR SOB,
[2021-05-07 16:01] LABS: RBC Urine 0 /HPF (0); WBC Urine 0 /HPF (0-4)
[2021-05-07 17:14] LABS: Basophils Percent Auto 0.3 % (0-2); Eosinophils Absolute Auto 0.2 X10*3/uL (0.0-0.4); Hemoglobin 7.8 g/dl (12.0-16.0); Mean Corpuscular Hemoglobin 30.1 pg (27.0-33.0); PLT CLUMP 1; Red Blood Count 2.59 X10*6/uL (4.20-5.50); SCAN SMEAR FLAG 1
[2021-05-07 17:16] LABS: Eosinophils Percent Auto 2.1 % (0-4); Hematocrit 24.7 % (37.0-47.0); Imm Gran Abs Auto 0.03 X10*3/uL (0.00-0.03); Imm Gran Pct Auto 0.4 % (0.0-0.4); Lymphocytes Absolute Auto 0.5 X10*3/uL (1.2-4.9); Lymphocytes Percent Auto 7.4 % (20-40); MANUAL DIFF FLAG SCAN; Mean Corpuscular HGB Conc 31.6 g/dl (31.0-35.0); Mean Corpuscular Volume 95.4 fL (80.0-98.0); Mean Platelet Volume 11.4 fL (9.4-12.3); Monocytes Absolute Auto 0.5 X10*3/uL (0.1-1.2); Monocytes Percent Auto 6.5 % (2-11); Neutrophils Percent Auto 83.3 % (45-73); Red Cell Distribution Width 14.8 % (11.0-16.0)
[2021-05-07] MEDS: Lactated Ringers 500 ML 100 ML IV (17:24)
[2021-05-07 17:29] LABS: COVID-19 Test Negative (Negative)
--- NOTE | 2021-05-07 17:32 | P.HPCC_ITS ---
History of Present Illness Date of Service: 05/07/21 Attending physician on admission: Yuridia Bustos Chief Complaint: Weakness fatigue and syncope and ongoing GI blood loss anemia 81-year-old female with dementia but functional at home who has had hip replacements with multiple hip displacements recently progressive weakness easy fatigability noted to be anemic but does have underlying CLL previous admission several days ago and only discharged 4 days ago revealed some gastritis and duodenitis without active bleeding and guaiac positivity started on a PPI and was noted to be in significant sinus bradycardia and today presented markedly hypothermic with temperature of 86 degrees and profound sinus bradycardia rate 35 with clear-cut Bower waves indicating hypothermia and upon rewarming with a Donal Hugger device and 1 L of volume replacement heart rate came up to 72 but clearly the mechanism has changed to atrial fibrillation and bedside echo shows concentric left ventricular hypertrophy greater than 60% ejection fraction no significant primary valve or pericardial disease and normal right heart size structure and function we know TSH is normal and electrolytes were normal making min or aliquot a choroid deficiency unlikely but glucocorticoid deficiency still a possibility and the patient was sent home to continue with carvedilol along with lisinopril and hydrochlorothiazide for blood pressure and that may have of course contributed to what seems to be symptomatic bradycardia and I believe that is the primary issue and the hypothermia was secondary to significant depression of cardiac output with some degree of altered mental status were going to repeat CT scan of the head to be sure there is no progression of intracranial bleeding or intracranial pressure and she will be empirically blood cultured but she does not have a positive anion gap metabolic acidosis 0 8 profoundly doubt a lactate issue and I do not believe that the and that this is a sepsis manifestation and she was not noted to have shaking chills but the only difference that we note here and chest x-ray is a newly elevated left hemidiaphragm Given her history and previous hospitalization is beginning to look like the primary issue is symptomatic bradycardia /sick sinus syndrome with paroxysmal atrial fibrillation with low cardiac output and secondary hypothermia Review of Systems Review of Systems: Yes all other systems are reviewed and are negative [facility] Past Medical History Medical History Anemia CLL (chronic lymphocytic leukemia) Coronary artery calcification seen on CAT scan COVID-19 vaccine series completed Dementia Essential hypertension Hx of reduction of closed dislocation Hyperlipidemia NSTEMI (non-ST elevated myocardial infarction) Peripheral artery disease Peripheral vascular disease Pulmonary fibrosis Ulcerative colitis Vertigo Family History Family History Father No problems noted. Mother No problems noted. Surgical History Surgical History H/O carotid endarterectomy H/O colonoscopy History of hip replacement History of liver biopsy History of revision of total hip arthroplasty Hx of lumbar discectomy S/P popliteal-distal bypass Social History Social History Household Members: Spouse Household Members Other:: Housing: House Are you a primary animal care service worker to a significant other at home: No Unable to assess alcohol history related to: Unknown Alcohol intake: current Alcohol intake frequency: does not drink Alcohol type: wine Patient Tobacco Use Status: Never used Tobacco Tobacco use type: Cigarette Years Smoked: 62 e-Cigarette/Vaping Use: Currently Using Second Hand Smoke Exposure: No Use of substances other than those prescribed or required for medical reasons: No Currently Displaying Signs/Symptoms of Drug Intoxication Withdrawal: No Spiritual Healthcare Practices: unknown Alevism Healthcare Practices: unknown Cultural Healthcare Practices: unknown Advance Directives: Yes Advance Directives on File: Yes Advance Directives Date on File: 05/06/20 service: No Current occupational status: retired 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 Meds Allergies Allergy/AdvReac Type Severity Reaction Status Date / Time diazepam [DIAZEPAM] Allergy Severe RASH Verified 04/09/21 15:13 Clzzsex-IEF-SmA Reductase Allergy Severe Muscle Pain Verified 04/09/21 15:13 Inhibitor [OFEYPDA-YIS-LBU REDUCTASE INHIBITOR] Active Medications: Current Medications Norepinephrine Bitartrate (Levophed) 8 mg in 250 mls @ 0 mls/hr IVCONT .Q0M BEAR; Protocol Last Titration: 05/07/21 14:34 Dose: 0.07 mcg/kg/min, 8.01 mls/hr Documented by: Lactated Ringer's (Lr) 500 mls @ 100 mls/hr IV .Q5H BEAR Stop: 05/07/21 22:29 Last Admin: 05/07/21 17:24 Dose: 100 mls/hr Documented by: Lactated Ringer's (Lr) 1,000 mls @ 100 mls/hr IVCONT .Q10H BEAR Pantoprazole Sodium 40 mg/ (Sodium Chloride) 110 mls @ 400 mls/hr IV DAILY@0630 BEAR Norepinephrine Bitartrate (Levophed) 8 mg in 250 mls @ 0 mls/hr IVCONT .Q0M BEAR; Protocol Home Medications Medication Instructions Recorded Confirmed Last Taken Type ascorbic acid (vitamin C) 1,000 mg 1,000 mg PO DAILY tab 03/09/20 05/07/21 04/29/21 History tablet aspirin 81 mg tablet,delayed 81 mg PO BEDTIME 03/09/20 05/07/21 04/28/21 History release cholecalciferol (vitamin D3) 250 250 mcg PO DAILY 03/09/20 05/07/21 04/29/21 History mcg (10,000 unit) capsule clonazepam 0.5 mg tablet 1 mg PO BEDTIME 03/09/20 05/07/21 04/28/21 History donepezil 10 mg tablet 10 mg PO BEDTIME 03/09/20 05/07/21 04/28/21 History memantine 10 mg tablet 10 mg PO BEDTIME 03/09/20 05/07/21 04/28/21 History vcllkktm-thr-mdtiz acid 0.4 1 tab PO DAILY 03/09/20 05/07/21 04/29/21 History mg-lycopene 300 mcg-lutein 250 mcg tablet (Centrum Silver) hydrochlorothiazide 12.5 mg capsule 12.5 mg PO DAILY 10/02/20 05/07/21 04/29/21 History lisinopril 5 mg tablet 1 tab PO DAILY 01/02/21 05/07/21 04/29/21 History Lactobacillus acidophilus 10 10,000 mmu cells PO DAILY 05/07/21 05/07/21 Unknown History billion cell capsule (Probiotic) amlodipine 10 mg tablet 10 mg PO BEDTIME 05/07/21 05/07/21 Unknown History calcitonin (salmon) 200 1 spray INTRANASAL DAILY 05/07/21 05/07/21 Unknown History unit/actuation nasal spray evolocumab 140 mg/mL subcutaneous 140 mg SUBCUT Q2W 05/07/21 05/07/21 Unknown History pen injector (Repatha SureClick) ferrous sulfate 325 mg (65 mg 325 mg PO DAILY 05/07/21 05/07/21 Unknown History iron) tablet Physical Exam Vital Signs: Vital Signs: Last Vital Signs Temp 94.3 F L 05/07/21 17:25 Pulse 74 05/07/21 17:25 Resp 19 05/07/21 17:25 BP 102/45 L 05/07/21 17:25 Pulse Ox 96 05/07/21 17:25 BMI result Body Mass Index 21.0 initially she was awake responsive but very lethargic with marked pallor but nonfocal neurologically bedside echo showed concentric left ventricular hypertrophy excellent systolic function without segmental wall motion abnormality no primary valve or pericard ial disease and abdomen soft no organomegaly there is a pressure ulcer over the coccyx which has some necrotic center with a little exudate no other skin problems bilateral carotid scars no peripheral livedo are acrocyanosis Results Labs CBC and Chem 7: 05/08/21 05:32 05/08/21 05:32 Labs: Laboratory Results - last 24 hr 05/07/21 05/07/21 05/07/21 14:10 14:10 14:10 MCV 96.9 MCH 29.7 MCHC 30.7 L RDW 14.9 Plt Count 119 L MPV 11.7 Immature Gran % (Auto) 0.5 H Neut % (Auto) 79.2 H Lymph % (Auto) 8.1 L Hartley % (Auto) 8.4 Eos % (Auto) 3.5 Baso % (Auto) 0.3 Lymph # (Auto) 0.5 L Hartley # (Auto) 0.5 Eos # (Auto) 0.2 Baso # (Auto) 0.0 Abs Immat Gran (auto) 0.03 Absolute Neuts (auto) 4.7 Absolute Nucleated RBC 0.000 Nucleated RBC % (auto) 0.0 PT INR APTT Anion Gap 14 Estim Creat Clear Calc 22.2 Estimated GFR 25 Random Glucose 95 Lactic Acid < 0.2 L Calcium 8.6 D Total Bilirubin < 0.2 AST 49 H ALT 84 H Alkaline Phosphatase 309 H D Total Protein 4.8 L Albumin 2.9 L TSH 1.69 Urine Color Urine Appearance Urine pH Ur Specific [place] Urine Protein Urine Glucose (UA) Urine Ketones Urine Blood Urine Nitrite Ur Leukocyte Esterase Urine RBC Urine WBC Ur Squamous Epith Cells Urine Bacteria COVID-19 (GENIE) COVID-19 Clin Com 0305/07/21 05/07/21 15:23 15:23 17:08 MCV MCH MCHC RDW Plt Count MPV Immature Gran % (Auto) Neut % (Auto) Lymph % (Auto) Hartley % (Auto) Eos % (Auto) Baso % (Auto) Lymph # (Auto) Hartley # (Auto) Eos # (Auto) Baso # (Auto) Abs Immat Gran (auto) Absolute Neuts (auto) Absolute Nucleated RBC Nucleated RBC % (auto) PT 11.0 INR 1.0 APTT 40.3 H Anion Gap Estim Creat Clear Calc Estimated GFR Random Glucose Lactic Acid Calcium Total Bilirubin AST ALT Alkaline Phosphatase Total Protein Albumin TSH Urine Color YELLOW Urine Appearance CLEAR Urine pH 5.0 Ur Specific [place] 1.025 Urine Protein 1+ H Urine Glucose (UA) NEG Urine Ketones NEG Urine Blood NEG Urine Nitrite NEG Ur Leukocyte Esterase NEG Urine RBC 0 Urine WBC 0 Ur Squamous Epith Cells NONE Urine Bacteria NONE COVID-19 (GENIE) Negative COVID-19 Clin Com See Note Imaging Radiologist's Impressions: Impressions Chest X-Ray 05/07/21 14:15 IMPRESSION: Well-inflated lungs without any acute process. Chest X-Ray 05/07/21 16:09 IMPRESSION: Right jugular line tip projects over SVC. No pneumothorax. Question pulmonary venous redistribution. Assessment and Plan (1) Paroxysmal atrial fibrillation: Status: Acute (2) Bradycardia: Status: Acute (3) Anemia: Status: Acute (4) Hypothermia: Status: Acute (5) Acute hypotension: Status: Acute (6) Chronic kidney failure: Status: Acute (7) Syncope and collapse: Status: Acute (8) Multifactorial gait disorder: Status: Acute (9) Anemia due to blood loss: Status: Acute (10) Hypothermia: Status: Acute (11) Coronary artery calcification seen on CAT scan: Status: Acute (12) Peripheral artery disease: Status: Acute (13) Essential hypertension: Status: Acute (14) Occult GI bleeding: Status: Acute (15) Acute kidney injury: Status: Acute (16) Acute UTI: Status: Acute (17) Guaiac positive stools: Status: Acute (18) MATILDE (acute kidney injury): Status: Acute (19) Bilateral carotid artery stenosis: Status: Acute (20) 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: Status: Acute (21) Status post carotid endarterectomy: Status: Acute (22) Other and unspecified hyperlipidemia: Status: Acute (23) Dementia: Status: Acute (24) Ecchymosis: Status: Acute (25) First degree heart block: Status: Acute (26) Abnormal transaminases: Status: Acute Plan the plan is to continue warming blanket until normal thermic and in the interim watch to be sure heart rate remains adequate currently atrial fibrillation but may spontaneously converted to sinus rhythm per and then a decision as to whether not with the withdrawal over antihypertensives most importantly the car basal all and withdrawal of her dementia medicines which are predominantly cholinergic might restore adequacy to her rate and rhythm and if so we might be able to avoid dual-chamber pacing transfuse as needed
[2021-05-07 17:48] LABS: White Blood Count 7.3 X10*3/uL (4.8-10.8)
[2021-05-07 17:50] LABS: Platelet Count 147 X10*3/uL (160-400); SLIDE REVIEW VERIFIED
[2021-05-07 17:52] LABS: VBG pH 7.31 (7.32-7.43)
[2021-05-07 17:53] LABS: Cortisol Random 15.9 ug/dL
[2021-05-07 17:53] LABS: VBG pCO2 39 mmHg; VBG pO2 65 mmHg
[2021-05-07 17:54] LABS: VBG Base Excess -5.6 mmol/L; VBG HCO3 20 mmol/L (22-26); Venous Blood Gas Refer to POC result
[2021-05-07] MEDS: Lactated Ringers 1,000 ML 100 ML IVCONT (18:47)
[2021-05-08] VITALS (17 sets, daily range): BP systolic 143–176; BP diastolic 49–86; PULSE 54–80; RESP 11–20; TEMP 36–37.9; O2SAT 91–100; BMI 22.5
[2021-05-08] MEDS: Lactated Ringers 1,000 ML 100 ML IVCONT (02:20)
--- NOTE | 2021-05-08 03:40 | PC.NURSE ---
Addendum entered by Carolee Pollack RN 05/08/21 04:04: CVP AT THIS TIME IS NOT 11 PREVIOUSLY DOCUMENTED. IT IS 8. Original Note: ASSUMED CARE OF PT AT 1900. PT FROM ER AT 1830. PT LETHARGIC AND MOSTLY SLEEPING BUT AROUSABLE TO NAME, SHE IS CONFUSED TO TIME, PLACE AND SITUATION. TLC TO RIJ TRANSDUCED TO CVP OF 4. BP WAS LOW INITIALLY TO ICU WITH SBP 85-90 AND MAP 60-65. LEVO DRIP STARTED BUT THEN SHUT OFF BP WENT UP. NOW BP 150'S/60'S. PT RECEIVED 1 UNIT OF LRBC'S WITHOUT COMPLICATION. LACTATED RINGERS INFUSING AT 80 ML/HR. MARY HUGGER ON FOR LOW TEMP BUT TEMP IMPROVED AND MARY HUGGER OFF. URINE OUTPUT GOOD. PRESSURE INJURY ON COCCYX CULTURED AND TRIAD APPLIED COVERED BY PINK FOAM. MONITOR SHOWED AFIB ON ARRIVAL TO ICU BUT CONVERTED TO NSR AT 2100 AND CURRENTLY NSR, RATE 80'S. CVP AT THIS TIME IS 11. PT IS MORE ALERT AFTER RECEIVING BLOOD.
[2021-05-08 05:11] LABS: OBS Int Ctl Valid YES; OBS1 POSITIVE (NEGATIVE)
[2021-05-08 05:37] LABS: MANUAL DIFF FLAG NO
[2021-05-08 05:39] LABS: VBG Base Excess -5.7 mmol/L; VBG HCO3 18 mmol/L (22-26); VBG pCO2 33 mmHg; VBG pH 7.36 (7.32-7.43); VBG pO2 47 mmHg
[2021-05-08 05:40] LABS: Basophils Percent Auto 0.2 % (0-2); Hematocrit 28.6 % (37.0-47.0); Lymphocytes Absolute Auto 0.6 X10*3/uL (1.2-4.9); PLT CLUMP 1; SCAN SMEAR FLAG 1; Venous Blood Gas Refer to POC result
[2021-05-08 05:42] LABS: Eosinophils Absolute Auto 0.2 X10*3/uL (0.0-0.4); Eosinophils Percent Auto 2.4 % (0-4); Hemoglobin 9.1 g/dl (12.0-16.0); Imm Gran Abs Auto 0.05 X10*3/uL (0.00-0.03); Imm Gran Pct Auto 0.6 % (0.0-0.4); Lymphocytes Percent Auto 6.9 % (20-40); Mean Corpuscular HGB Conc 31.8 g/dl (31.0-35.0); Mean Corpuscular Hemoglobin 29.7 pg (27.0-33.0); Mean Corpuscular Volume 93.5 fL (80.0-98.0); Monocytes Absolute Auto 0.6 X10*3/uL (0.1-1.2); Monocytes Percent Auto 7.4 % (2-11); Neutrophils Absolute Auto 6.9 x10*3/uL (2.0-8.3); Neutrophils Percent Auto 82.5 % (45-73); Red Blood Count 3.06 X10*6/uL (4.20-5.50); Red Cell Distribution Width 14.8 % (11.0-16.0)
[2021-05-08] MEDS: Pantoprazole Sodium 40 MG/10 ML VIAL IVPUSH (05:47)
[2021-05-08 05:51] LABS: Platelet Count 158 X10*3/uL (160-400); White Blood Count 8.4 X10*3/uL (4.8-10.8)
[2021-05-08 05:59] LABS: Alanine Aminotransferase 70 U/L (0-31); Albumin Level 2.8 g/dL (3.5-5.0); Alkaline Phosphatase 286 U/L (39-117); Anion Gap 15 (12-20); Aspartate Amino Transferase 36 U/L (5-31); Bilirubin Direct < 0.2 mg/dL (0.0-0.5); Bilirubin Total 0.3 mg/dL (0.0-1.0); Blood Urea Nitrogen 56 mg/dL (9-16); Calcium 8.4 mg/dL (8.4-10.2); Carbon Dioxide 19 mmol/L (22-29); Chloride 113 mmol/L (96-108); Creatinine Clr Calc Pharmacy 23.9; Estimated Glomerular Filt Rate 27; Glucose Random 65 mg/dL (60-115); Magnesium 2.1 mg/dL (1.6-2.6); Phosphorus 5.1 mg/dL (2.7-4.5); Potassium 4.6 mmol/L (3.3-5.1); Sodium 142 mmol/L (135-145); Total Protein 4.7 g/dL (6.5-8.0)
[2021-05-08 06:00] LABS: B Type Natriuretic Peptide 537 pg/mL (<100)
[2021-05-08 08:17] LABS: VBG Base Excess -5.6 mmol/L; VBG HCO3 20 mmol/L (22-26); VBG pCO2 39 mmHg; VBG pH 7.31 (7.32-7.43); VBG pO2 65 mmHg
[2021-05-08] MEDS: vancomycin HCL 1,000 MG in 0.9 % Sodium Chloride 250 ML 270 MG IV (08:35)
--- NOTE | 2021-05-08 11:03 | P.CDIC_ITS ---
CDI Concurrent Query Documentation Clarification: PHYSICIAN'S DOCUMENTATION REQUEST Date of Query: 05/08/21 1104 Patient Name: Georgina Jamil Admit Date: 05/07/21 Dear Doctor, A review of the medical record indicates additional documentation may be indicated. Please review below and update the documentation accordingly. Clinical Indicators: Risk Factors/Clinical Indicators/Treatments Wound care notes: 05/07 - pressure injury coccyx. Alginate Foam dressing Based on the above, could you please provide, in the Progress Notes, further information regarding the ulcer/wound: Stages of the documented pressure injury: * If a pressure ulcer/injury, please also include the stage* of the ulcer: * Stage 1 * Stage 2 * Stage 3 * Stage 4 * Other * Unable to determine *Source: National Pressure Ulcer Advisory Panel (NPUAP) Use of terms such as suspected, likely, concern for, or probable (associated with a specific diagnosis that is being evaluated, monitored, or treated as if it exists) are acceptable and can be coded in the inpatient setting, when documented at the time of discharge. Thank you, Denisse Barbour [facility], CDIS Extension: [phone] Please use your independent medical judgment in providing your response. THIS QUERY IS PART OF THE PERMANENT MEDICAL RECORD indeed on physical examination she has a pressure ulcer overlying the coccyx and and I would see stage it as a stage II and we had already placed a consult for wound care to advise and treat Provider Response: Other Other Diagnosis: stage II pressure ulcer overlying coccyx
--- NOTE | 2021-05-08 11:04 | PM.CCPN ---
Subjective Subjective Date of Service: 05/08/21 Interval History: 81-year-old female with underlying CLL chronic anemia with a blood loss component received 2 unit transfusion on top of hemoglobin of 6.8 presented with acute on chronic renal failure which is now improving and this is with volume replacement and of course confucianist of hemodynamics I believe she has got the symptomatic bradycardia/ sick sinus syndrome / paroxysmal atrial fibrillation presented with heart rate 35 brief several hours of AFib at a more adequate heart rate and between 65 an low 70s and then spontaneously back to normal sinus rhythm and presentation is with progressive weakness drop attacks because of that weakness and I think the bradycardia plays a big role and and potentially hypotension as a separate issue not just bradycardia related and and she was hypothermic it presenting at 86 degrees F required rewarming volume confucianist and with volume her CVP was only 3 so clearly she was relatively hypovolemic and are heart rate became more adequate and I believe is an iatrogenic component related to intolerance to the Coreg or any beta-tad intolerance potentially to lisinopril because if she has got renal vascular disease as part of her diffuse vasculopathy than clearly as a renin dependent she could have precipitous drops in pressure and renal perfusion and also the medication for the dementia which is cholinergic I think is also intolerable to heart rate so all these things were discontinued currently blood pressure is 158 oxygen saturation is excellent hemoglobin is greater than 8 minutes at this point sinus mechanism with rate of 60-65 and hemodynamically looks excellent and she might need elevated blood pressure for renal perfusion for now the plan would be to Sender upstairs for several days with physical therapy and under normal home circumstances off these medicines see how she does on telemetry and if she continues to have symptomatic bradycardia despite stopping the offending medicines then I would consider permanent dual-chamber pacing Critical Care Time (minutes): 45 Physical Exam Vital Signs: Vital Signs: Last Vital Signs Temp 96.8 F 05/08/21 09:00 Pulse 54 05/08/21 10:00 Resp 15 05/08/21 10:00 BP 150/51 H 05/08/21 10:00 Pulse Ox 97 05/08/21 10:00 BMI result Body Mass Index 22.5 normal hemodynamics more awake more appropriate nonfocal neurologically bedside echo with mild concentric left ventricular hypertrophy 60-65% ejection fraction and anatomically normal with no wall motion abnormality lungs clear bilaterally abdomen soft with no bruits warm well perfused NOAC no acrocyanosis no livedo Objective Data Labs CBC & Chem 7: 05/08/21 05:32 05/08/21 05:32 Labs: Laboratory Results - last 24 hr 05/07/21 05/07/21 05/07/21 14:10 14:10 14:10 WBC 6.0 RBC 2.59 L Hgb 7.7 L Hct 25.1 L MCV 96.9 MCH 29.7 MCHC 30.7 L RDW 14.9 Plt Count 119 L MPV 11.7 Immature Gran % (Auto) 0.5 H Neut % (Auto) 79.2 H Lymph % (Auto) 8.1 L [place] % (Auto) 8.4 Eos % (Auto) 3.5 Baso % (Auto) 0.3 Lymph # (Auto) 0.5 L [place] # (Auto) 0.5 Eos # (Auto) 0.2 Baso # (Auto) 0.0 Abs Immat Gran (auto) 0.03 Absolute Neuts (auto) 4.7 Absolute Nucleated RBC 0.000 Nucleated RBC % (auto) 0.0 Smear Tech's Comments PT INR APTT VBG pH VBG pCO2 VBG pO2 VBG HCO3 VBG O2 Saturation VBG Base Excess Sodium 141 Potassium 4.3 Chloride 112 H Carbon Dioxide 19 L Anion Gap 14 BUN 64 H Creatinine 1.91 H Estim Creat Clear Calc 22.2 Estimated GFR 25 Random Glucose 95 Lactic Acid Calcium 8.6 D Phosphorus Magnesium Total Bilirubin < 0.2 Direct Bilirubin AST 49 H ALT 84 H Alkaline Phosphatase 309 H D Troponin I High Sens 3.6 B-Natriuretic Peptide Total Protein 4.8 L Albumin 2.9 L TSH 1.69 Random Cortisol Urine Color Urine Appearance Urine pH Ur Specific Clubb Urine Protein Urine Glucose (UA) Urine Ketones Urine Blood Urine Nitrite Ur Leukocyte Esterase Urine RBC Urine WBC Ur Squamous Epith Cells Urine Bacteria Stool Occult Blood COVID-19 (GENIE) COVID-19 Clin Com Blood Type Antibody Screen Enhanced Crossmatch 05/07/21 05/07/21 05/07/21 14:10 15:23 15:23 WBC RBC Hgb Hct MCV MCH MCHC RDW Plt Count MPV Immature Gran % (Auto) Neut % (Auto) Lymph % (Auto) [place] % (Auto) Eos % (Auto) Baso % (Auto) Lymph # (Auto) [place] # (Auto) Eos # (Auto) Baso # (Auto) Abs Immat Gran (auto) Absolute Neuts (auto) Absolute Nucleated RBC Nucleated RBC % (auto) Smear Tech's Comments PT 11.0 INR 1.0 APTT 40.3 H VBG pH VBG pCO2 VBG pO2 VBG HCO3 VBG O2 Saturation VBG Base Excess Sodium Potassium Chloride Carbon Dioxide Anion Gap BUN Creatinine Estim Creat Clear Calc Estimated GFR Random Glucose Lactic Acid < 0.2 L Calcium Phosphorus Magnesium Total Bilirubin Direct Bilirubin AST ALT Alkaline Phosphatase Troponin I High Sens B-Natriuretic Peptide Total Protein Albumin TSH Random Cortisol Urine Color YELLOW Urine Appearance CLEAR Urine pH 5.0 Ur Specific Clubb 1.025 Urine Protein 1+ H Urine Glucose (UA) NEG Urine Ketones NEG Urine Blood NEG Urine Nitrite NEG Ur Leukocyte Esterase NEG Urine RBC 0 Urine WBC 0 Ur Squamous Epith Cells NONE Urine Bacteria NONE Stool Occult Blood COVID-19 (GENIE) COVID-19 [employer] Com Blood Type Antibody Screen Enhanced Crossmatch 05/07/21 05/07/21 05/07/21 16:50 16:53 17:08 WBC RBC Hgb Hct MCV MCH MCHC RDW Plt Count MPV Immature Gran % (Auto) Neut % (Auto) Lymph % (Auto) [place] % (Auto) Eos % (Auto) Baso % (Auto) Lymph # (Auto) [place] # (Auto) Eos # (Auto) Baso # (Auto) Abs Immat Gran (auto) Absolute Neuts (auto) Absolute Nucleated RBC Nucleated RBC % (auto) Smear Tech's Comments PT INR APTT VBG pH 7.31 L 7.31 L VBG pCO2 39 39 VBG pO2 65 65 VBG HCO3 20 L 20 L VBG O2 Saturation 91.0 91.0 VBG Base Excess -5.6 -5.6 Sodium Potassium Chloride Carbon Dioxide Anion Gap BUN Creatinine Estim Creat Clear Calc Estimated GFR Random Glucose Lactic Acid Calcium Phosphorus Magnesium Total Bilirubin Direct Bilirubin AST ALT Alkaline Phosphatase Troponin I High Sens B-Natriuretic Peptide Total Protein Albumin TSH Random Cortisol Urine Color Urine Appearance Urine pH Ur Specific Clubb Urine Protein Urine Glucose (UA) Urine Ketones Urine Blood Urine Nitrite Ur Leukocyte Esterase Urine RBC Urine WBC Ur Squamous Epith Cells Urine Bacteria Stool Occult Blood COVID-19 (GENIE) Negative COVID-19 [employer] Com See Note Blood Type Antibody Screen Enhanced Crossmatch 05/07/21 05/07/21 05/07/21 17:08 17:08 17:08 WBC 7.3 RBC 2.59 L Hgb 7.8 L Hct 24.7 L MCV 95.4 MCH 30.1 MCHC 31.6 RDW 14.8 Plt Count 147 L MPV 11.4 Immature Gran % (Auto) 0.4 Neut % (Auto) 83.3 H Lymph % (Auto) 7.4 L [place] % (Auto) 6.5 Eos % (Auto) 2.1 Baso % (Auto) 0.3 Lymph # (Auto) 0.5 L [place] # (Auto) 0.5 Eos # (Auto) 0.2 Baso # (Auto) 0.0 Abs Immat Gran (auto) 0.03 Absolute Neuts (auto) 6.0 Absolute Nucleated RBC 0.000 Nucleated RBC % (auto) 0.0 Smear Tech's Comments VERIFIED PT INR APTT VBG pH VBG pCO2 VBG pO2 VBG HCO3 VBG O2 Saturation VBG Base Excess Sodium Potassium Chloride Carbon Dioxide Anion Gap BUN Creatinine Estim Creat Clear Calc Estimated GFR Random Glucose Lactic Acid Calcium Phosphorus Magnesium Total Bilirubin Direct Bilirubin AST ALT Alkaline Phosphatase Troponin I High Sens B-Natriuretic Peptide Total Protein Albumin TSH Random Cortisol 15.9 Urine Color Urine Appearance Urine pH Ur Specific Clubb Urine Protein Urine Glucose (UA) Urine Ketones Urine Blood Urine Nitrite Ur Leukocyte Esterase Urine RBC Urine WBC Ur Squamous Epith Cells Urine Bacteria Stool Occult Blood COVID-19 (GENIE) COVID-19 Clin Com Blood Type B Positive Antibody Screen NEGATIVE Enhanced Crossmatch See Detail 05/08/21 05/08/21 05/08/21 04:45 05:32 05:32 WBC 8.4 RBC 3.06 L Hgb 9.1 L Hct 28.6 L MCV 93.5 MCH 29.7 MCHC 31.8 RDW 14.8 Plt Count 158 L MPV 11.0 Immature Gran % (Auto) 0.6 H Neut % (Auto) 82.5 H Lymph % (Auto) 6.9 L [place] % (Auto) 7.4 Eos % (Auto) 2.4 Baso % (Auto) 0.2 Lymph # (Auto) 0.6 L [place] # (Auto) 0.6 Eos # (Auto) 0.2 Baso # (Auto) 0.0 Abs Immat Gran (auto) 0.05 H Absolute Neuts (auto) 6.9 Absolute Nucleated RBC 0.000 Nucleated RBC % (auto) 0.0 Smear Tech's Comments PT INR APTT VBG pH VBG pCO2 VBG pO2 VBG HCO3 VBG O2 Saturation VBG Base Excess Sodium 142 Potassium 4.6 Chloride 113 H Carbon Dioxide 19 L Anion Gap 15 BUN 56 H Creatinine 1.79 H Estim Creat Clear Calc 23.9 Estimated GFR 27 Random Glucose 65 Lactic Acid Calcium 8.4 Phosphorus 5.1 H Magnesium 2.1 Total Bilirubin 0.3 Direct Bilirubin < 0.2 AST 36 H ALT 70 H Alkaline Phosphatase 286 H Troponin I High Sens B-Natriuretic Peptide Total Protein 4.7 L Albumin 2.8 L TSH Random Cortisol Urine Color Urine Appearance Urine pH Ur Specific Clubb Urine Protein Urine Glucose (UA) Urine Ketones Urine Blood Urine Nitrite Ur Leukocyte Esterase Urine RBC Urine WBC Ur Squamous Epith Cells Urine Bacteria Stool Occult Blood POSITIVE COVID-19 (GENIE) COVID-19 [employer] Com Blood Type Antibody Screen Enhanced Crossmatch 05/08/21 05/08/21 05:32 05:32 WBC RBC Hgb Hct MCV MCH MCHC RDW Plt Count MPV Immature Gran % (Auto) Neut % (Auto) Lymph % (Auto) [place] % (Auto) Eos % (Auto) Baso % (Auto) Lymph # (Auto) [place] # (Auto) Eos # (Auto) Baso # (Auto) Abs Immat Gran (auto) Absolute Neuts (auto) Absolute Nucleated RBC Nucleated RBC % (auto) Smear Tech's Comments PT INR APTT VBG pH 7.36 VBG pCO2 33 VBG pO2 47 VBG HCO3 18 L VBG O2 Saturation 77.0 VBG Base Excess -5.7 Sodium Potassium Chloride Carbon Dioxide Anion Gap BUN Creatinine Estim Creat Clear Calc Estimated GFR Random Glucose Lactic Acid Calcium Phosphorus Magnesium Total Bilirubin Direct Bilirubin AST ALT Alkaline Phosphatase Troponin I High Sens B-Natriuretic Peptide 537 H Total Protein Albumin TSH Random Cortisol Urine Color Urine Appearance Urine pH Ur Specific Clubb Urine Protein Urine Glucose (UA) Urine Ketones Urine Blood Urine Nitrite Ur Leukocyte Esterase Urine RBC Urine WBC Ur Squamous Epith Cells Urine Bacteria Stool Occult Blood COVID-19 (GENIE) COVID-19 [employer] Com Blood Type Antibody Screen Enhanced Crossmatch Microbiology Microbiology Results: Microbiology 05/07/21 14:10 Blood - Venous Blood Culture - Preliminary Prelim: GPC Gram Stain only 05/07/21 22:02 Sacrum Gram Stain - Final Progress Note: A&P Assessment and plan (1) Paroxysmal atrial fibrillation: Status: Acute (2) Bradycardia: Status: Acute (3) Anemia: Status: Acute (4) Hypothermia: Status: Acute (5) Acute hypotension: Status: Acute (6) Chronic kidney failure: Status: Acute (7) Syncope and collapse: Status: Acute (8) Anemia due to blood loss: Status: Acute (9) CHF (congestive heart failure): Status: Acute (10) MATILDE (acute kidney injury): Status: Acute (11) Ecchymosis: Status: Acute (12) Dementia: Status: Acute (13) Other and unspecified hyperlipidemia: Status: Acute (14) Status post carotid endarterectomy: Status: Acute (15) 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: Status: Acute (16) Bilateral carotid artery stenosis: Status: Acute (17) Guaiac positive stools: Status: Acute (18) Hypertensive urgency: Status: Acute (19) Acute kidney injury: Status: Acute (20) Hypertension: Status: Acute (21) NSTEMI (non-ST elevated myocardial infarction): Status: Acute (22) Peripheral artery disease: Status: Acute (23) Coronary artery calcification seen on CAT scan: Status: Acute Plan transfer to the floor a now that she is off the Levophed and we could reduce her IV volume and start her on a diet and introduce physical therapy and observe for several days on telemetry to determine whether simply stopping the medicine as corrected all issues and we just have to except a degree of hypertension or whether not permanent pacing as necessary Quality Stroke Does the patient have a stroke diagnosis?: No VTE Prior VTE?: No VTE Risk Level:: Medical - moderate - high VTE Device Contraindication: N/A - Device Ordered VTE Drug Contraindication: Treatment Not Tolerated
--- NOTE | 2021-05-08 11:27 | MHC.CLN ---
RE: CONSULT PT WITH INCREASED NUTRITION RISK R/T PRESSURE INJURY PT WITH POOR PO ENVIRONMENTAL SPECIALIST DIET RX: REGULAR-APPROPRIATE RECOMMEND ADDING ENSURE BID TO INCREASE KCALS AND PROMOTE WOUND HEALING SUPP TO PROVIDE 700KCALS, 40G PROTEIN MONITOR PO INTAKE CLOSELY SEE ALSO FULL CLINICAL NUTRITION ASSESSMENT
[2021-05-08] MEDS: Lactated Ringers 1,000 ML 50 ML IVCONT (11:58)
--- NOTE | 2021-05-08 14:38 | MHC.CM.PN ---
Attempted to meet with pt in ICU: pt lethargic, not very responsive to questions - active rewarming underway: Call placed to her HCP/Spouse Shekhar for information. Per Shekhar, pt just started receiving services from [facility] - she uses a walker and had been very independent for the most part at home. Pt has been to STR several times in the past s/p JARED with numerous prosthetic dislocations. Shekhar concerned with pt's falling/syncope episodes, I can't get her up once she goes down. He is receptive to STR referrals. Broad referrals to be placed: will update pt on d/c plan once her MS improves. PT eval needed IMM & HCP in chart, MD Dr. Kade Davis CM to follow
--- NOTE | 2021-05-08 16:41 | PM.EVENT ---
Event Note Date of Service: 05/09/21 Event Note: 81-year-old female with underlying CLL, chronic anemia, chronic kidney disease stage 3, chronic diastolic heart failure, hypertension, dementia probably Alzheimer recently discharged from [facility] after evaluated for Recurrent falls with question of syncope, extensive work up at that time showed no cause of syncope EEG showed no seizures, CT head showed no acute intracranial process CT abdomen showed no acute findings, patient also worked up for acute on chronic anemia underwent upper endoscopy that showed no active GI bleed but was found to have erosive duodenitis and gastritis patient was placed on Prilosec and required 2 units of packed RBC hematocrit improved patient iron studies were within normal range was noted to have mild hemolysis but no further intervention was required, during that hospitalization patient was also noted to be bradycardic initially Coreg was held but then was resumed since heart rate improved she was also noted to have encephalopathy that improved. Patient was brought into [facility] on May 07 as she was found to be lethargic, bradycardic by visiting nurses, EMS found systolic blood pressure of 80 therefore gave her normal saline 500 bolus and 0.5 mg of atropine In the emergency room patient was noted to be hypothermic treated with warm fluids xenia hugger and Levophed, EKG showed Bower waves patient was subsequently admitted to intensive care unit, hematocrit was 25.1 with hemoglobin 7.7 received 2 units of blood, gradually Levophed drip at was wean of, all her hypertensive medication were held, her blood pressure and heart rate improved and patient transferred to medical floor blood cultures 1/2 showed Gram-positive cocci in chains on g stain therefore she was treated with 1 dose of meropenem and vancomycin. symptomatic bradycardia/ sick sinus syndrome / paroxysmal atrial fibrillation presented with heart rate 35 then converted to AFib at a more adequate heart rate between 65 to low 70s and then spontaneously back to normal sinus rhythm , will continue to hold Coreg and will wean Aricept slowly likely contributing to bradycardia continue tele monitor Hypotension likely Due to hypovolemia (poor by mouth intake) and antihypertensive causing progressive weakness /fall and drop attacks patient on multiple antihypertensive hydralazine 100 mg t.i.d., Norvasc 10 mg, Coreg 6.25 mg, lisinopril 5 mg and hydrochlorothiazide 12.5 mg since patient now noted to have hypertension will place on hydralazine 50 mg t.i.d. and follow BP closely DC Coreg due to bradycardia, DC lisinopril if she has renal vascular disease than renin dependent history of dementia wean Aricept Acute on chronic kidney disease stage 3 baseline creatinine around 1.5, noted to have cr. 1.9 on admission improving gradually Hypothermia? likely due to hypotension, blood cultures 1/2 positive for Gram-positive cocci in chains, Urinalysis negative.? Chest x-ray showed no evidence of pneumonia Given 1 dose of IV vanco and meropenem in ICU question related to Emery cube ulcer follow clinical course and blood cultures closely. Treated with Xenia Moses, temperature normalized Gram-positive bacteremia 1/2 blood culture positive for gram-positive cocci follow final blood culture report continue IV antibiotics for now Acute on chronic Anemia likely multifactorial with mild hemolysis, chronic GI loss status post 2 units of blood hematocrit improved no acute symptoms,Status post recent upper endoscopy no active GI bleed noted, has erosive duodenitis and gastritis, on Prilosec 20 mg b.i.d. avoid NSAID and aspirin Status post 2 units of packed RBC hematocrit improved and remained stable no further intervention needed for hemolysis as recently discussed with Dr. Lima, iron studies within normal range CKI stage III creatinine close to baseline around 1.5.?Avoid nephrotoxins. Chronic diastolic CHF:? Patient has no shortness of breath or leg edema, although noted to have elevated BNP and abnormal CT chest suggestive of congestion and elevated lfts,will give IV Lasix 20 mg x 1 and repeat BNP/and LFTs CLL outpatient follow-up with Oncology DVT prophylaxis Code status
[2021-05-08] MEDS: Donepezil HCl 5 MG TABLET PO (22:43)
[2021-05-09 03:31] VITALS: BP 134/62; PULSE 72; RESP 17; TEMP 36.3; O2SAT 96
[2021-05-09] MEDS: Lactated Ringers 1,000 ML 50 ML IVCONT (05:42)
[2021-05-09] MEDS: Pantoprazole Sodium 40 MG/10 ML VIAL IVPUSH (05:42)
[2021-05-09 05:47] VITALS: BMI 21.9
[2021-05-09 06:12] LABS: MANUAL DIFF FLAG NO
[2021-05-09 06:19] LABS: Venous Blood Gas Refer to POC result
[2021-05-09 06:20] LABS: VBG Base Excess -1.3 mmol/L; VBG HCO3 22 mmol/L (22-26); VBG pCO2 33 mmHg; VBG pH 7.43 (7.32-7.43); VBG pO2 60 mmHg
[2021-05-09 06:21] LABS: Basophils Percent Auto 0.3 % (0-2); Eosinophils Absolute Auto 0.1 X10*3/uL (0.0-0.4); Hematocrit 28.7 % (37.0-47.0); Hemoglobin 9.1 g/dl (12.0-16.0); Imm Gran Pct Auto 0.8 % (0.0-0.4); Lymphocytes Absolute Auto 0.6 X10*3/uL (1.2-4.9); Lymphocytes Percent Auto 4.8 % (20-40); Mean Corpuscular HGB Conc 31.7 g/dl (31.0-35.0); Mean Corpuscular Hemoglobin 29.4 pg (27.0-33.0); Mean Corpuscular Volume 92.9 fL (80.0-98.0); Neutrophils Absolute Auto 10.8 x10*3/uL (2.0-8.3); Neutrophils Percent Auto 85.1 % (45-73); Platelet Count 174 X10*3/uL (160-400); Red Blood Count 3.09 X10*6/uL (4.20-5.50); Red Cell Distribution Width 14.9 % (11.0-16.0); White Blood Count 12.7 X10*3/uL (4.8-10.8)
[2021-05-09 06:35] LABS: B Type Natriuretic Peptide 805 pg/mL (<100)
[2021-05-09 06:53] LABS: Alanine Aminotransferase 58 U/L (0-31); Albumin Level 2.8 g/dL (3.5-5.0); Alkaline Phosphatase 275 U/L (39-117); Anion Gap 12 (12-20); Aspartate Amino Transferase 28 U/L (5-31); Bilirubin Direct 0.2 mg/dL (0.0-0.5); Bilirubin Total 0.3 mg/dL (0.0-1.0); Blood Urea Nitrogen 49 mg/dL (9-16); Carbon Dioxide 21 mmol/L (22-29); Chloride 114 mmol/L (96-108); Creatinine Clr Calc Pharmacy 27.5; Estimated Glomerular Filt Rate 32; Glucose Random 87 mg/dL (60-115); Magnesium 1.9 mg/dL (1.6-2.6); Phosphorus 3.6 mg/dL (2.7-4.5); Potassium 4.2 mmol/L (3.3-5.1); Sodium 143 mmol/L (135-145); Total Protein 4.7 g/dL (6.5-8.0)
[2021-05-09 07:37] VITALS: BP 196/63; PULSE 66; RESP 18; TEMP 36.8; O2SAT 92
[2021-05-09] MEDS: hydrALAZINE HCl 50 MG TABLET PO ×3 (08:05→20:23)
[2021-05-09] MEDS: cefTRIAXone sodium 1 GM in 0.9 % Sodium Chloride 50 ML IV (09:18)
--- NOTE | 2021-05-09 09:35 | P.CDIC_ITS ---
CDI Concurrent Query Documentation Clarification: PHYSICIAN'S DOCUMENTATION REQUEST Date of Query: 05/09/21 0935 Patient Name: Georgina Jamil Admit Date: 05/07/21 Dear Doctor, A review of the medical record indicates additional documentation may be needed. Please review below and update the documentation accordingly. Clinical Indicators: Specifics to documentation within the medical record if known: Risk Factors/Clinical Indicators/Treatments PN 05/08 - She was also noted to have encephalopathy that improved. Based on the above, please further specify, in the Progress Notes, the known or suspected type of the documented encephalopathy if known: * Metabolic * Toxic * Toxic metabolic * Hypertensive * Due to a specified condition (such as UTI, hyponatremia, CVA, etc.) * Other (please specify) * Unable to determine Use of terms such as suspected, likely, concern for, or probable (associated with a specific diagnosis that is being evaluated, monitored, or treated as if it exists) are acceptable and can be coded in the inpatient setting, when documented at the time of discharge. Thank you, Denisse Barbour [facility], CDIS Extension: [phone] Please use your independent medical judgment in providing your response. THIS QUERY IS PART OF THE PERMANENT MEDICAL RECORD Provider Response: Other Other Diagnosis: see note
[2021-05-09 11:47] VITALS: BP 160/54; PULSE 69; RESP 18; TEMP 37.1; O2SAT 94
--- NOTE | 2021-05-09 12:28 | P.PNIM_ITS ---
Subjective Subjective Date of Service: 05/09/21 Interval History: Feeling better awake alert this morning offers no complaints of chest pain, no palpitation, no lightheadedness or dizziness at bedside, admits that patient was not drinking enough fluids at home. Review of Systems Review of Systems: Yes all other systems are reviewed and are negative Physical Exam Vital Signs: Vital Signs: Last Vital Signs Temp 98.7 F 05/09/21 11:47 Pulse 69 05/09/21 11:47 Resp 18 05/09/21 11:47 BP 160/54 H 05/09/21 11:47 Pulse Ox 94 05/09/21 11:47 BMI result Body Mass Index 21.9 Const: Other: General? resting comfortably in no acute distress.? HEENT bruise left eye, and left scalp Neck supple no JVD. CVS?regular rate rhythm, Respiratory lungs clear to auscultation, no respiratory distress, no wheeze, no rhonchi, no rales Gastrointestinal?abdomen soft, nontender, bowel sounds audible Extremities no pitting edema. Neuro nonfocal, moving all 4 extremity speech clear. Skin bilateral lower extremity bruising, abrasion to both knees Musculoskeletal no deformity ? Objective Data Active Medications Donepezil HCl (Donepezil Hcl 5 Mg Tablet) 5 mg PO BEDTIME [facility] Last Admin: 05/08/21 22:43 Dose: 5 mg Documented by: MIKAYLA Hydralazine HCl (Hydralazine Hcl 50 Mg Tablet) 50 mg PO TID [facility]; Protocol Last Admin: 05/09/21 08:05 Dose: 50 mg Documented by: CEE Ceftriaxone Sodium 1 gm/ (Sodium Chloride) 50 mls @ 100 mls/hr IV Q24H [facility] Last Infusion: 05/09/21 10:33 Dose: 100 mls/hr Documented by: CEE Pantoprazole Sodium (Pantoprazole Sodium 40 Mg/10 Ml Vial) 40 mg IVPUSH DAILY@0630 [facility] Last Admin: 05/09/21 05:42 Dose: 40 mg Documented by: MARION Labs CBC & Chem 7: 05/09/21 06:06 05/09/21 06:06 Labs: Laboratory Results - last 24 hr 05/07/21 05/09/21 05/09/21 17:08 06:06 06:06 MCV 92.9 MCH 29.4 MCHC 31.7 RDW 14.9 Plt Count 174 MPV 11.0 Immature Gran % (Auto) 0.8 H Neut % (Auto) 85.1 H Lymph % (Auto) 4.8 L [place] % (Auto) 8.0 Eos % (Auto) 1.0 Baso % (Auto) 0.3 Lymph # (Auto) 0.6 L [place] # (Auto) 1.0 Eos # (Auto) 0.1 Baso # (Auto) 0.0 Abs Immat Gran (auto) 0.10 H Absolute Neuts (auto) 10.8 H Absolute Nucleated RBC 0.000 Nucleated RBC % (auto) 0.0 VBG pH VBG pCO2 VBG pO2 VBG HCO3 VBG O2 Saturation VBG Base Excess Anion Gap 12 Estim Creat Clear Calc 27.5 Estimated GFR 32 Random Glucose 87 Calcium 9.0 D Phosphorus 3.6 Magnesium 1.9 Total Bilirubin 0.3 Direct Bilirubin 0.2 AST 28 ALT 58 H Alkaline Phosphatase 275 H B-Natriuretic Peptide Total Protein 4.7 L Albumin 2.8 L Blood Type B Positive Antibody Screen NEGATIVE Enhanced Crossmatch See Detail 05/09/21 05/09/21 06:10 06:13 MCV MCH MCHC RDW Plt Count MPV Immature Gran % (Auto) Neut % (Auto) Lymph % (Auto) [place] % (Auto) Eos % (Auto) Baso % (Auto) Lymph # (Auto) [place] # (Auto) Eos # (Auto) Baso # (Auto) Abs Immat Gran (auto) Absolute Neuts (auto) Absolute Nucleated RBC Nucleated RBC % (auto) VBG pH 7.43 VBG pCO2 33 VBG pO2 60 VBG HCO3 22 VBG O2 Saturation 89.0 VBG Base Excess -1.3 Anion Gap Estim Creat Clear Calc Estimated GFR Random Glucose Calcium Phosphorus Magnesium Total Bilirubin Direct Bilirubin AST ALT Alkaline Phosphatase B-Natriuretic Peptide 805 H Total Protein Albumin Blood Type Antibody Screen Enhanced Crossmatch Microbiology Microbiology Results: Microbiology 05/07/21 22:02 Gram Stain - Final Sacrum Routine Culture - Preliminary Culture in progress. 05/07/21 14:10 Blood Culture - Preliminary Blood - Venous Gram positive cocci 05/07/21 14:10 Blood Culture - Preliminary Blood - Venous No growth after 24 hours. Assessment and Plan (1) Bradycardia: Status: Acute (2) Paroxysmal atrial fibrillation: Status: Acute (3) Anemia: Status: Acute (4) Hypothermia: Status: Acute (5) Acute hypotension: Status: Acute (6) Chronic kidney failure: Status: Acute (7) MATILDE (acute kidney injury): Status: Acute (8) Dementia: Status: Acute Plan 81-year-old female with underlying CLL, chronic anemia, chronic kidney disease stage 3, chronic diastolic heart failure, hypertension, dementia probably Alzheimer recently discharged from [facility] after evaluated for Recurrent falls with question of syncope, extensive work up at that time showed no cause of syncope EEG showed no seizures, CT head showed no acute intracranial process CT abdomen showed no acute findings, patient also worked up for acute on chronic anemia underwent upper endoscopy that showed no active GI bleed but was found to have erosive duodenitis and gastritis patient was placed on Prilosec and required 2 units of packed RBC hematocrit improved patient iron studies were within normal range was noted to have mild hemolysis but no further intervention was required, during that hospitalization patient was also noted to be bradycardic initially Coreg was held but then was resumed since heart rate improved she was also noted to have encephalopathy that improved. Patient was brought into [facility] on May 07 as she was found to be lethargic, bradycardic by visiting nurses, EMS found systolic blood pressure of 80 therefore gave her normal saline 500 bolus and 0.5 mg of atropine In the emergency room patient was noted to be hypothermic treated with warm fluids xenia hugger and Levophed, EKG showed Bower waves patient was subsequently admitted to intensive care unit, hematocrit was 25.1 with hemog lobin 7.7 received 2 units of blood, gradually Levophed drip at was wean of, all her hypertensive medication were held, her blood pressure and heart rate improved and patient transferred to medical floor blood cultures 1/2 showed Gram-positive cocci in chains on g stain therefore she was treated with 1 dose of meropenem and vancomycin. Symptomatic bradycardia/ sick sinus syndrome / paroxysmal atrial fibrillation presented with heart rate 35 then converted to AFib at a more adequate heart rate between 65 to low 70s and then spontaneously back to normal sinus rhythm , will continue to hold Coreg and will wean Aricept slowly likely contributing to bradycardia continue tele monitor Obtain cardiology eval for PAf due to significant anemia with hemolysis likely not a good candidate for anticoagulation Hypotension likely Due to? hypovolemia (poor by mouth intake) and antihypertensive causing progressive weakness /fall and drop attacks patient on multiple antihypertensive hydralazine 100 mg t.i.d., Norvasc 10 mg, Coreg 6.25 mg, lisinopril 5 mg and hydrochlorothiazide 12.5 mg since patient now noted to have hypertension will place on hydralazine 50 mg t.i.d. and add Norvasc 5 mg daily and follow BP closely DC Coreg due to bradycardia, DC lisinopril if she has renal vascular disease ebonie n renin dependent history of dementia wean Aricept and DC Namendjude, was also on Klonopin 1 mg at bedtime currently on hold will resume low-dose of noted to have anxiety. Acute on chronic kidney disease stage 3 baseline creatinine around 1.5, noted to have cr. 1.9 on admission improving gradually down to 1.56 will DC IV fluid Hypothermia? likely due to hypotension, blood cultures 1/2 positive for Gram- positive cocci in chains, Urinalysis negative.? Chest x-ray showed no evidence of pneumonia Given 1 dose of IV vanco and meropenem in ICU question related to decub ulcer follow clinical course and blood cultures closely. Treated with Xenia Hugge, temperature normalized Gram-positive bacteremia 1/2 blood culture positive for gram-positive cocci follow final blood culture report cont. iv antibiotics for now Acute on chronic Anemia likely multifactorial with mild hemolysis, chronic GI loss status post 2 units of blood hematocrit improved no acute symptoms,Status post recent upper endoscopy no active GI bleed noted, has erosive duodenitis and gastritis, on Prilosec 20 mg b.i.d. avoid NSAID and aspirin no further intervention needed for hemolysis as recently discussed with Dr. Lima, iron studies within normal range Chronic diastolic CHF:? Patient has no shortness of breath or leg edema, although noted to have elevated BNP. Stage II coccyx ulcer obtain surgical consult for debridement continue foam dressing frequent position change and high-protein diet Elevated liver enzymes improving since last admission, no abdominal pain no nausea vomiting, prior hepatitis serology negative no further intervention required Elevated BNP no evidence of CHF likely due to renal disease CLL outpatient follow-up with Oncology DVT prophylaxis Code status Quality Stroke Does the patient have a stroke diagnosis?: No VTE Prior VTE?: No VTE Risk Level:: Medical - moderate - high VTE Device Contraindication: N/A - Device Ordered VTE Drug Contraindication: Treatment Not Tolerated
--- NOTE | 2021-05-09 12:30 | MHC.CLN ---
F/U PT WITH INCREASED NUTRITION RISK DUE TO PRESSURE INJURY. DIET= REGULAR-APPROPRIATE. ENSURE BID (700 KCAL, 40 G PROTEIN) TO INCREASE KCALS AND PROMOTE WOUND HEALING. SITTING UP IN CHAIR AT LUNCH, ALERT. HAD NOT STARTED TO EAT. MORNING SUPPLEMENT OPENED BUT APPEARED NEARLY FULL. CONTINUE TO FOLLOW INTAKE OF MEALS AND SUPPLEMENT.
[2021-05-09] MEDS: amLODIPine Besylate 5 MG TABLET PO (13:35)
--- NOTE | 2021-05-09 14:56 | P.CONGS_ITS ---
History of Present Illness Consult details Consult date: 05/09/21 Narrative: 81 year old female patient with a PMH of CLL, chronic anemia, CKD stage 3, HTN, dementia, admitted for recurrent falls and possible syncope. She was found to have a pressure ulcer over her coccyx. Surgical consultation requested for possible debridement. Patient is not aware of the ulcer and denies any pain at the site. She has no history of surgery at this location. She has a good appetite and is reported to eat 100% of her meals. Review of Systems 2 Review of Systems: Yes Unobtainable due to mental status Neurologic: Reports confusion Psychiatric: Psychiatric: Reports confusion [facility] Past Medical History Medical History Anemia CLL (chronic lymphocytic leukemia) Coronary artery calcification seen on CAT scan COVID-19 vaccine series completed Dementia Essential hypertension Hx of reduction of closed dislocation Hyperlipidemia NSTEMI (non-ST elevated myocardial infarction) Peripheral artery disease Peripheral vascular disease Pulmonary fibrosis Ulcerative colitis Vertigo Family History Family History Father No problems noted. Mother No problems noted. Surgical History Surgical History H/O carotid endarterectomy H/O colonoscopy History of hip replacement History of liver biopsy History of revision of total hip arthroplasty Hx of lumbar discectomy S/P popliteal-distal bypass Social History Social History Household Members: Spouse Household Members Other:: Housing: House Are you a primary manager critical care to a significant other at home: No Unable to assess alcohol history related to: Unknown Alcohol intake: current Alcohol intake frequency: does not drink Alcohol type: wine Patient Tobacco Use Status: Never used Tobacco Tobacco use type: Cigarette Years Smoked: 62 e-Cigarette/Vaping Use: Currently Using Second Hand Smoke Exposure: No Use of substances other than those prescribed or required for medical reasons: No Currently Displaying Signs/Symptoms of Drug Intoxication Withdrawal: No Spiritual Healthcare Practices: unknown Sikh Healthcare Practices: unknown Cultural Healthcare Practices: unknown Advance Directives: Yes Advance Directives on File: Yes Advance Directives Date on File: 05/06/20 service: No Current occupational status: retired 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 Meds Allergies Allergy/AdvReac Type Severity Reaction Status Date / Time diazepam [DIAZEPAM] Allergy Severe RASH Verified 04/09/21 15:13 Uloztty-VRY-SiS Reductase Allergy Severe Muscle Pain Verified 04/09/21 15:13 Inhibitor [[id number] REDUCTASE INHIBITOR] Active Medications: Current Medications Amlodipine Besylate (Amlodipine Besylate 5 Mg Tablet) 5 mg PO DAILY [facility]; Protocol Last Admin: 05/09/21 13:35 Dose: 5 mg Documented by: Donepezil HCl (Donepezil Hcl 5 Mg Tablet) 5 mg PO BEDTIME [facility] Last Admin: 05/08/21 22:43 Dose: 5 mg Documented by: Hydralazine HCl (Hydralazine Hcl 50 Mg Tablet) 50 mg PO TID [facility]; Protocol Last Admin: 05/09/21 14:46 Dose: 50 mg Documented by: Ceftriaxone Sodium 1 gm/ (Sodium Chloride) 50 mls @ 100 mls/hr IV Q24H [facility] Last Infusion: 05/09/21 10:33 Dose: Infused Documented by: Pantoprazole Sodium (Pantoprazole Sodium 40 Mg/10 Ml Vial) 40 mg IVPUSH DAILY@0630 [facility] Last Admin: 05/09/21 05:42 Dose: 40 mg Documented by: Home Medications Medication Instructions Recorded Confirmed Last Taken Type ascorbic acid (vitamin C) 1,000 mg 1,000 mg PO DAILY tab 03/09/20 05/07/21 04/29/21 History tablet aspirin 81 mg tablet,delayed 81 mg PO BEDTIME 03/09/20 05/07/21 04/28/21 History release cholecalciferol (vitamin D3) 250 250 mcg PO DAILY 03/09/20 05/07/21 04/29/21 History mcg (10,000 unit) capsule clonazepam 0.5 mg tablet 1 mg PO BEDTIME 03/09/20 05/07/21 04/28/21 History donepezil 10 mg tablet 10 mg PO BEDTIME 03/09/20 05/07/21 04/28/21 History memantine 10 mg tablet 10 mg PO BEDTIME 03/09/20 05/07/21 04/28/21 History recybmvo-nms-odiea acid 0.4 1 tab PO DAILY 03/09/20 05/07/21 04/29/21 History mg-lycopene 300 mcg-lutein 250 mcg tablet (Centrum Silver) hydrochlorothiazide 12.5 mg capsule 12.5 mg PO DAILY 10/02/20 05/07/21 04/29/21 History lisinopril 5 mg tablet 1 tab PO DAILY 01/02/21 05/07/21 04/29/21 History Lactobacillus acidophilus 10 10,000 mmu cells PO DAILY 05/07/21 05/07/21 Unknown History billion cell capsule (Probiotic) amlodipine 10 mg tablet 10 mg PO BEDTIME 05/07/21 05/07/21 Unknown History calcitonin (salmon) 200 1 spray INTRANASAL DAILY 05/07/21 05/07/21 Unknown History unit/actuation nasal spray evolocumab 140 mg/mL subcutaneous 140 mg SUBCUT Q2W 05/07/21 05/07/21 Unknown History pen injector (Repatha SureClick) ferrous sulfate 325 mg (65 mg 325 mg PO DAILY 05/07/21 05/07/21 Unknown History iron) tablet Physical Exam Vital Signs: Vital Signs: Last Vital Signs Temp 98.7 F 05/09/21 11:47 Pulse 69 05/09/21 11:47 Resp 18 05/09/21 11:47 BP 160/54 H 05/09/21 11:47 Pulse Ox 94 05/09/21 11:47 BMI result Body Mass Index 21.9 Const: General: no acute distress, awake, Physically active (trying to get out of bed) and confusion Nutritional Appearance: well nourished Orientation/consciousness: oriented to person and confusion HENMT: Head: Yes normocephalic and Yes abrasion Ears: hearing grossly normal bilaterally Resp: Effort & Inspection: normal respiratory effort, able to speak in complete sentences, no respiratory distress and no stridor Auscultation: clear to auscultation bilaterally GI: Inspection: Yes normal to inspection Palpation (GI): not soft, not firm , nontender and no guarding Back/Spine/Pelvis: Other: back sacral ulcer measuring 3 x 2 cm with heaped up margins, approximately 1 cm deep. Surrounding skin is red but viable, no tenderness to palpation, no abscess or necrosis. Ulcer extends past skin into dermis. Back/spine/pelvis image: 1. site of ulceration Skin: Other: see above Neuro: General: oriented to person and confusion Extrem: Other: multiple areas o ecchymosis and eschars, consistent with previous falls. Results Labs Result diagrams: 05/09/21 06:06 05/09/21 06:06 Labs: Abnormal lab results 05/07/21 05/09/21 05/09/21 Range/Units 17:08 06:06 06:06 WBC 12.7 H (4.8-10.8) X10*3/uL RBC 3.09 L (4.20-5.50) X10*6/uL Hgb 9.1 L (12.0-16.0) g/dl Hct 28.7 L (37.0-47.0) % Immature Gran % (Auto) 0.8 H (0.0-0.4) % Neut % (Auto) 85.1 H (45-73) % Lymph % (Auto) 4.8 L (20-40) % Lymph # (Auto) 0.6 L (1.2-4.9) X10*3/uL Abs Immat Gran (auto) 0.10 H (0.00-0.03) X10*3/uL Absolute Neuts (auto) 10.8 H (2.0-8.3) x10*3/uL Chloride 114 H (96-108) mmol/L Carbon Dioxide 21 L (22-29) mmol/L BUN 49 H (9-16) mg/dL Creatinine 1.56 H (0.5-1.4) mg/dL ALT 58 H (0-31) U/L Alkaline Phosphatase 275 H (39-117) U/L B-Natriuretic Peptide (<100) pg/mL Total Protein 4.7 L (6.5-8.0) g/dL Albumin 2.8 L (3.5-5.0) g/dL Enhanced Crossmatch See Detail 05/09/21 Range/Units 06:10 WBC (4.8-10.8) X10*3/uL RBC (4.20-5.50) X10*6/uL Hgb (12.0-16.0) g/dl Hct (37.0-47.0) % Immature Gran % (Auto) (0.0-0.4) % Neut % (Auto) (45-73) % Lymph % (Auto) (20-40) % Lymph # (Auto) (1.2-4.9) X10*3/uL Abs Immat Gran (auto) (0.00-0.03) X10*3/uL Absolute Neuts (auto) (2.0-8.3) x10*3/uL Chloride (96-108) mmol/L Carbon Dioxide (22-29) mmol/L BUN (9-16) mg/dL Creatinine (0.5-1.4) mg/dL ALT (0-31) U/L Alkaline Phosphatase (39-117) U/L B-Natriuretic Peptide 805 H (<100) pg/mL Total Protein (6.5-8.0) g/dL Albumin (3.5-5.0) g/dL Enhanced Crossmatch Short CBC 05/09/21 Range/Units 06:06 WBC 12.7 H (4.8-10.8) X10*3/uL Hgb 9.1 L (12.0-16.0) g/dl Hct 28.7 L (37.0-47.0) % Plt Count 174 (160-400) X10*3/uL BMP 05/09/21 06:06 Sodium 143 Potassium 4.2 Chloride 114 H Carbon Dioxide 21 L BUN 49 H Creatinine 1.56 H Calcium 9.0 D Liver Function 05/09/21 Range/Units 06:06 Total Bilirubin 0.3 (0.0-1.0) mg/dL Direct Bilirubin 0.2 (0.0-0.5) mg/dL AST 28 (5-31) U/L ALT 58 H (0-31) U/L Alkaline Phosphatase 275 H (39-117) U/L Albumin 2.8 L (3.5-5.0) g/dL Urine 05/07/21 Range/Units 15:23 Urine Color YELLOW Urine Appearance CLEAR Urine pH 5.0 (5.0-8.0) Ur Specific [place] 1.025 (1.005-1.025) Urine Protein 1+ H (NEG-TRACE) MG/DL Urine Glucose (UA) NEG (NEG) MG/DL All other labs normal. Assessment and Plan (1) Sacral decubitus ulcer, stage II: Status: Acute Plan 81 year old female with multiple medical problems, found to have a sacral decubitus ulcer, approximately stage II. I will return tomorrow to debride the margins at the bedside and excise the heaped up margins. Encouraged patient to avoid lying flat on her back. She should roll from side to side while in bed. [place] foam dressing applied. Procedures Date of Service Date of Service: 05/09/21
--- NOTE | 2021-05-09 15:50 | MHC.CM.PN ---
EMR REVIEWED, PT W/MULTIPLE MEDICAL ISSUES INCLUDING STAGE 2 SACRAL DECUBITIS AND PLAN FOR BEDSIDE DEBRIDEMENT TOMORROW 05/10, NO PLAN FOR D/C AT THIS TIME, CM WILL CON'T TO FOLLOW D/C NEEDS.
[2021-05-09 15:56] VITALS: BP 179/75; PULSE 88; RESP 16; TEMP 37.1; O2SAT 94
[2021-05-09 19:39] VITALS: BP 106/54; PULSE 88; RESP 18; TEMP 36.3; O2SAT 95
[2021-05-09] MEDS: Donepezil HCl 5 MG TABLET PO (20:22)
[2021-05-09 23:28] VITALS: BP 171/76; PULSE 96; RESP 14; TEMP 37.2; O2SAT 93
[2021-05-10] VITALS (7 sets, daily range): BP systolic 174–186; BP diastolic 66–77; PULSE 72–87; RESP 14–17; TEMP 36.8–37.5; O2SAT 93–96; BMI 21.4
[2021-05-10] MEDS: Pantoprazole Sodium 40 MG/10 ML VIAL IVPUSH (05:30)
[2021-05-10 05:40] LABS: MANUAL DIFF FLAG NO
[2021-05-10 05:42] LABS: Basophils Percent Auto 0.2 % (0-2); Eosinophils Absolute Auto 0.1 X10*3/uL (0.0-0.4); Eosinophils Percent Auto 0.5 % (0-4); Hematocrit 27.5 % (37.0-47.0); Imm Gran Abs Auto 0.13 X10*3/uL (0.00-0.03); Lymphocytes Absolute Auto 0.8 X10*3/uL (1.2-4.9); Lymphocytes Percent Auto 5.8 % (20-40); Mean Corpuscular HGB Conc 32.7 g/dl (31.0-35.0); Mean Corpuscular Hemoglobin 30.1 pg (27.0-33.0); Mean Platelet Volume 10.9 fL (9.4-12.3); Monocytes Absolute Auto 1.4 X10*3/uL (0.1-1.2); Monocytes Percent Auto 10.4 % (2-11); Neutrophils Absolute Auto 10.9 x10*3/uL (2.0-8.3); Neutrophils Percent Auto 82.1 % (45-73); Platelet Count 171 X10*3/uL (160-400); Red Blood Count 2.99 X10*6/uL (4.20-5.50); Red Cell Distribution Width 14.9 % (11.0-16.0); White Blood Count 13.3 X10*3/uL (4.8-10.8)
[2021-05-10 05:44] LABS: Venous Blood Gas Refer to POC result
[2021-05-10 05:44] LABS: VBG Base Excess 3.6 mmol/L; VBG HCO3 25 mmol/L (22-26); VBG pCO2 29 mmHg; VBG pH 7.54 (7.32-7.43); VBG pO2 73 mmHg
[2021-05-10 06:01] LABS: Anion Gap 14 (12-20); Blood Urea Nitrogen 47 mg/dL (9-16); Calcium 9.3 mg/dL (8.4-10.2); Carbon Dioxide 23 mmol/L (22-29); Chloride 114 mmol/L (96-108); Creatinine Clr Calc Pharmacy 28.4; Estimated Glomerular Filt Rate 33; Glucose Random 108 mg/dL (60-115); Potassium 4.1 mmol/L (3.3-5.1); Sodium 147 mmol/L (135-145)
[2021-05-10 06:02] LABS: Alanine Aminotransferase 47 U/L (0-31); Albumin Level 2.7 g/dL (3.5-5.0); Alkaline Phosphatase 246 U/L (39-117); Anion Gap 13 (12-20); Aspartate Amino Transferase 24 U/L (5-31); B Type Natriuretic Peptide 1090 pg/mL (<100); Bilirubin Direct 0.2 mg/dL (0.0-0.5); Bilirubin Total 0.3 mg/dL (0.0-1.0); Blood Urea Nitrogen 48 mg/dL (9-16); Calcium 9.3 mg/dL (8.4-10.2); Carbon Dioxide 24 mmol/L (22-29); Chloride 114 mmol/L (96-108); Creatinine Clr Calc Pharmacy 27.6; Estimated Glomerular Filt Rate 32; Glucose Random 109 mg/dL (60-115); Magnesium 1.7 mg/dL (1.6-2.6); Phosphorus 2.9 mg/dL (2.7-4.5); Sodium 147 mmol/L (135-145); Total Protein 4.7 g/dL (6.5-8.0)
[2021-05-10] MEDS: hydrALAZINE HCl 50 MG TABLET PO ×3 (08:01→20:40)
[2021-05-10] MEDS: amLODIPine Besylate 5 MG TABLET PO (08:01)
[2021-05-10] MEDS: cefTRIAXone sodium 1 GM in 0.9 % Sodium Chloride 50 ML IV (08:07)
[2021-05-10] MEDS: amLODIPine Besylate 10 MG TABLET PO (08:16)
--- NOTE | 2021-05-10 11:07 | PM.CNCAR ---
History of Present Illness History of Present Illness Date of Service: 05/10/21 Chief complaint: Syncope Symptomatic Bradycardia Narrative: This is a cardiology consultation regarding atrial fibrillation. Admission documentation reviewed. She was actually admitted rather for hypothermia. In that setting, she had sinus bradycardia as well. Subsequently, it appears that she went into atrial fibrillation according to the general engineering teacher Dr. Bustos, she had for about 6 hours or so. There is no EKG for that but there is a rhythm strip that is scanned in system. Subsequently, her heart rate has improved with rewarming and now she is back in a floor. Prior to this, she had another admission for generalized weakness falls, gastrointestinal bleeding and other medical issues and was actually just discharged prior to getting admitted again. At this time, she states that she is generally doing okay although feeling weak. No clear chest pain or shortness of breath or other symptoms at this time. Review of Systems Review of Systems: Yes all other systems are reviewed and are negative Cardiovascular: Cardiovascular: Reports as per HPI, Reports no additional cardiovascular complaints, Denies acrocyanosis, Denies cool extremities, Denies chest pain, Denies diaphoresis, Denies syncope, Denies claudication, Denies leg edema, Denies lightheadedness, Denies palpitations and Denies dyspnea Respiratory: Respiratory: Denies dyspnea Neurologic: Denies syncope Endocrine: Endocrine: Denies palpitations PMFSH Past Medical History Medical History Anemia CLL (chronic lymphocytic leukemia) Coronary artery calcification seen on CAT scan COVID-19 vaccine series completed Dementia Essential hypertension Hx of reduction of closed dislocation Hyperlipidemia NSTEMI (non-ST elevated myocardial infarction) Peripheral artery disease Peripheral vascular disease Pulmonary fibrosis Ulcerative colitis Vertigo Family History Family History Father No problems noted. Mother No problems noted. Surgical History Surgical History H/O carotid endarterectomy H/O colonoscopy History of hip replacement History of liver biopsy History of revision of total hip arthroplasty Hx of lumbar discectomy S/P popliteal-distal bypass Social History Social History Household Members: Spouse Household Members Other:: Housing: House Are you a primary career placement specialist to a significant other at home: No Unable to assess alcohol history related to: Unknown Alcohol intake: current Alcohol intake frequency: does not drink Alcohol type: wine Patient Tobacco Use Status: Never used Tobacco Tobacco use type: Cigarette Years Smoked: 62 e-Cigarette/Vaping Use: Currently Using Second Hand Smoke Exposure: No Use of substances other than those prescribed or required for medical reasons: No Currently Displaying Signs/Symptoms of Drug Intoxication Withdrawal: No Spiritual Healthcare Practices: unknown [facility] Practices: unknown Cultural Healthcare Practices: unknown Advance Directives: Yes Advance Directives on File: Yes Advance Directives Date on File: 05/06/20 service: No Current occupational status: retired 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 Meds Allergies Allergy/AdvReac Type Severity Reaction Status Date / Time diazepam [DIAZEPAM] Allergy Severe RASH Verified 04/09/21 15:13 [id number] Reductase Allergy Severe Muscle Pain Verified 04/09/21 15:13 Inhibitor [[id number] REDUCTASE INHIBITOR] Active Medications: Current Medications Amlodipine Besylate (Amlodipine Besylate 10 Mg Tablet) 10 mg PO DAILY [facility]; Protocol Last Admin: 05/10/21 08:16 Dose: 5 mg Documented by: Hydralazine HCl (Hydralazine Hcl 50 Mg Tablet) 50 mg PO TID [facility]; Protocol Last Admin: 05/10/21 08:01 Dose: 50 mg Documented by: Ceftriaxone Sodium 1 gm/ (Sodium Chloride) 50 mls @ 100 mls/hr IV Q24H [facility] Last Infusion: 05/10/21 09:17 Dose: Infused Documented by: Pantoprazole Sodium (Pantoprazole Sodium 40 Mg/10 Ml Vial) 40 mg IVPUSH DAILY@0630 [facility] Last Admin: 05/10/21 05:30 Dose: 40 mg Documented by: Home Medications Medication Instructions Recorded Confirmed Last Taken Type ascorbic acid (vitamin C) 1,000 mg 1,000 mg PO DAILY tab 03/09/20 05/07/21 04/29/21 History tablet aspirin 81 mg tablet,delayed 81 mg PO BEDTIME 03/09/20 05/07/21 04/28/21 History release cholecalciferol (vitamin D3) 250 250 mcg PO DAILY 03/09/20 05/07/21 04/29/21 History mcg (10,000 unit) capsule clonazepam 0.5 mg tablet 1 mg PO BEDTIME 03/09/20 05/07/21 04/28/21 History donepezil 10 mg tablet 10 mg PO BEDTIME 03/09/20 05/07/21 04/28/21 History memantine 10 mg tablet 10 mg PO BEDTIME 03/09/20 05/07/21 04/28/21 History vgptqdmg-bes-kyuke acid 0.4 1 tab PO DAILY 03/09/20 05/07/21 04/29/21 History mg-lycopene 300 mcg-lutein 250 mcg tablet (Centrum Silver) hydrochlorothiazide 12.5 mg capsule 12.5 mg PO DAILY 10/02/20 05/07/21 04/29/21 History lisinopril 5 mg tablet 1 tab PO DAILY 01/02/21 05/07/21 04/29/21 History Lactobacillus acidophilus 10 10,000 mmu cells PO DAILY 05/07/21 05/07/21 Unknown History billion cell capsule (Probiotic) amlodipine 10 mg tablet 10 mg PO BEDTIME 05/07/21 05/07/21 Unknown History calcitonin (salmon) 200 1 spray INTRANASAL DAILY 05/07/21 05/07/21 Unknown History unit/actuation nasal spray evolocumab 140 mg/mL subcutaneous 140 mg SUBCUT Q2W 05/07/21 05/07/21 Unknown History pen injector (Repatha SureClick) ferrous sulfate 325 mg (65 mg 325 mg PO DAILY 05/07/21 05/07/21 Unknown History iron) tablet Physical Exam Vital Signs: Vital Signs: Last Vital Signs Temp 99.3 F 05/10/21 07:40 Pulse 87 05/10/21 07:40 Resp 16 05/10/21 07:40 BP 178/73 H 05/10/21 07:40 Pulse Ox 94 05/10/21 07:40 BMI result Body Mass Index 21.4 Const: General: comfortable HENMT: Other: Unremarkable Neck: Neck: Yes normal visual inspection Chest: Chest palpation & inspection: normal inspection of the chest Resp: Auscultation: clear to auscultation bilaterally Cardio: Palpation: normal PMI Heart sounds: S1 normal heart sound present, S2 normal heart sound present, no gallops, Murmur heart sound present systolic and no rubs GI: Palpation (GI): Soft to palpation Back/Spine/Pelvis: Other: unremarkable Skin: Lesions: other Neuro: General: other Extrem: General: Yes other Psych: Mental Status: other Objective Labs and Meds Result diagrams: 05/10/21 05:28 05/10/21 05:28 Lab results: Laboratory Results - last 24 hr 05/10/21 05/10/21 05/10/21 05:28 05:28 05:28 WBC 13.3 H RBC 2.99 L Hgb 9.0 L Hct 27.5 L MCV 92.0 MCH 30.1 MCHC 32.7 RDW 14.9 Plt Count 171 MPV 10.9 Immature Gran % (Auto) 1.0 H Neut % (Auto) 82.1 H Lymph % (Auto) 5.8 L [place] % (Auto) 10.4 Eos % (Auto) 0.5 Baso % (Auto) 0.2 Lymph # (Auto) 0.8 L [place] # (Auto) 1.4 H Eos # (Auto) 0.1 Baso # (Auto) 0.0 Abs Immat Gran (auto) 0.13 H Absolute Neuts (auto) 10.9 H Absolute Nucleated RBC 0.000 Nucleated RBC % (auto) 0.0 VBG pH VBG pCO2 VBG pO2 VBG HCO3 VBG O2 Saturation VBG Base Excess Sodium 147 H Potassium 4.0 Chloride 114 H Carbon Dioxide 24 Anion Gap 13 BUN 48 H Creatinine 1.55 H Estim Creat Clear Calc 27.6 Estimated GFR 32 Random Glucose 109 Calcium 9.3 Phosphorus 2.9 Magnesium 1.7 Total Bilirubin 0.3 Direct Bilirubin 0.2 AST 24 ALT 47 H Alkaline Phosphatase 246 H B-Natriuretic Peptide 1090 H Total Protein 4.7 L Albumin 2.7 L 05/10/21 05/10/21 05:28 05:35 WBC RBC Hgb Hct MCV MCH MCHC RDW Plt Count MPV Immature Gran % (Auto) Neut % (Auto) Lymph % (Auto) [place] % (Auto) Eos % (Auto) Baso % (Auto) Lymph # (Auto) [place] # (Auto) Eos # (Auto) Baso # (Auto) Abs Immat Gran (auto) Absolute Neuts (auto) Absolute Nucleated RBC Nucleated RBC % (auto) VBG pH 7.54 H VBG pCO2 29 VBG pO2 73 VBG HCO3 25 VBG O2 Saturation 95.0 VBG Base Excess 3.6 Sodium 147 H Potassium 4.1 Chloride 114 H Carbon Dioxide 23 Anion Gap 14 BUN 47 H Creatinine 1.51 H Estim Creat Clear Calc 28.4 Estimated GFR 33 Random Glucose 108 Calcium 9.3 Phosphorus Magnesium Total Bilirubin Direct Bilirubin AST ALT Alkaline Phosphatase B-Natriuretic Peptide Total Protein Albumin ECG Interpretation: Admission EKG shows severe sinus bradycardia at 40/Min with repolarization changes. Currently, in telemetry in the 70s. One rhythm strip scaned shows atrial fibrillation with controlled rate. Assessment and Plan (1) Paroxysmal atrial fibrillation: Status: Acute (2) Uncontrolled hypertension: Status: Acute Plan It seems that she had atrial fibrillation in the context of hypothermia. This lasts for a few hours per general engineering teacher. Currently back in sinus rhythm. Overall, she has a high thromboembolic score but she is also high fall risk as well as she has had recent GI bleeding with hemoglobin as low as 5.9 just a few days ago. Hence she is not a good candidate for anticoagulation. With concerns for bradycardia, will hold off any beta-blockers in fact her Coreg can be stopped. It was actually given in the past for uncontrolled blood pressures. Otherwise her blood pressures are still high and she is on a combination of amlodipine hydralazine. These dose can be increased as much to get the pressure down. Otherwise she is suspected to have coronary disease although there has not been any definitive testing mainly due to her dementia. Recent troponins however within normal limits. Procedures Date of Service Date of Service: 05/10/21
--- NOTE | 2021-05-10 12:54 | PC.NURSE ---
Skin/Wound assessment completed. 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 She has been followed by the wound clinic. She is well known to me. She also has stage 2 to right buttock and blanchable redness to sacrum. Silver alginate applied to both wounds and covered with medium foam dressing. Patient has abrasions and bruising to bilateral legs, arms and hands from multiple falls.
--- NOTE | 2021-05-10 14:00 | CA_ITS ---
Transthoracic Echocardiogram Patient (Last, First, Middle): Georgina Jamil J Gender: Female Date of : 1940 Age: 81 Procedure Date: 05/10/2021 Procedure Type: Transthoracic Echocardiogram Location: S3E Height: 170.18 cm Weight: 61.69 kg BSA: 1.72 m2 Heart Rate: bpm BP: 178 / 73 mmHg Religious Activities Director: JUAN A Referring MD: Luis A Bonilla MD Symptoms: enterococcus bacteremia, r/o veg Study Quality: Good ECG Rhythm: Sinus Conclusions: - The left ventricular systolic function is normal. The visually estimated ejection fraction is between 65-70%. - No clear valvular vegetations. Findings Left Ventricle Normal left ventricular cavity size. There is mildly increased left ventricular wall thickness. The left ventricular systolic function is normal. The visually estimated ejection fraction is between 65-70%. Wall Motion Rest Echo Findings The basal inferior segment is hypokinetic. Aortic Valve There is a normal trileaflet aortic valve. There is no aortic valve stenosis. There is no aortic valve regurgitation. Mitral Valve There is mild anterior mitral leaflet thickening. There is mild mitral valve regurgitation. There is no mitral valve stenosis. Pulmonic Valve The pulmonic valve was not well visualized. Tricuspid Valve Normal tricuspid valve structure. There is trace tricuspid valve regurgitation. Prior Study Comparison No significant change compared to prior study dated: 05/02/2021. Measurements 2D Linear Measurements IVSd: 1.21 0.6-0.9/0.6-1.0 cm LVIDd: 4.12 3.9-5.3/4.2-5.9 cm LVIDd Index: 2.40 2.4-3.2/2.2-3.1 cm/m2 LVIDs: 2.85 2.0-3.6 cm LVPWd: 1.20 0.7-1.1 cm LV Mass: 216.85 67-162/88-224 g LV Mass Index: 126.08 43-95/49-115 g/m2 Updated in Other Vendor System with Status of Final Abimael Montana MD electronically signed on 05/10/2021 4:23:16 PM with status of Final
--- NOTE | 2021-05-10 14:01 | P.PNGS_ITS ---
Subjective Subjective Date of Service: 05/10/21 Interval history: Late entry: Patient with no new complaints Physical Exam Vital Signs: Vital Signs: Last Vital Signs Temp 98.1 F 05/14/21 11:09 Pulse 75 05/14/21 11:09 Resp 20 05/14/21 11:09 BP 164/88 H 05/14/21 11:09 Pulse Ox 97 05/14/21 11:09 BMI result Body Mass Index 22.3 Skin: Other: decubitus ulcer reviewed with wound care nurse. No necrotic tissue was identified and no heaped up areas are identified today. No debridement required Full body images: 1. site of decubitus ulcer Objective Data Active Medications Amlodipine Besylate (Amlodipine Besylate 10 Mg Tablet) 10 mg PO DAILY [facility]; Protocol Last Admin: 05/14/21 07:57 Dose: 10 mg Documented by: COTEMA Hydralazine HCl (Hydralazine Hcl 50 Mg Tablet) 100 mg PO TID [facility]; Protocol Last Admin: 05/14/21 07:56 Dose: 100 mg Documented by: MOISÉS Linezolid (Zyvox/D5w) 600 mg in 300 mls @ 300 mls/hr IV Q12H [facility] Stop: 05/25/21 15:59 Last Infusion: 05/14/21 05:34 Dose: 0 mls/hr Documented by: MYRANDA Lisinopril (Lisinopril 5 Mg Tablet) 5 mg PO DAILY [facility]; Protocol Last Admin: 05/14/21 07:56 Dose: 5 mg Documented by: MOISÉS Omeprazole (Omeprazole 20 Mg Capsule.) 20 mg PO DAILY@0630 [facility] Last Admin: 05/14/21 05:32 Dose: 20 mg Documented by: MYRANDA Pharmacy Consult (Consult Rx Vancomycin Dosing) 1 each MISCELLANE DAILY [facility] Labs CBC & Chem 7: 05/14/21 05:38 05/14/21 05:38 Labs: Laboratory Results - last 24 hr 05/14/21 05/14/21 05/14/21 05:38 05:38 05:38 MCV 91.7 MCH 29.0 MCHC 31.7 RDW 13.9 Plt Count 232 MPV 10.5 Immature Gran % (Auto) 0.8 H Neut % (Auto) 79.0 H Lymph % (Auto) 8.6 L [place] % (Auto) 8.2 Eos % (Auto) 3.0 Baso % (Auto) 0.4 Lymph # (Auto) 1.0 L [place] # (Auto) 1.0 Eos # (Auto) 0.4 Baso # (Auto) 0.1 Abs Immat Gran (auto) 0.09 H Absolute Neuts (auto) 9.3 H Absolute Nucleated RBC 0.000 Nucleated RBC % (auto) 0.0 VBG pH VBG pCO2 VBG pO2 VBG HCO3 VBG O2 Saturation VBG Base Excess Anion Gap 14 Estim Creat Clear Calc 24.9 Estimated GFR 28 Random Glucose 121 H Calcium 8.6 Phosphorus 4.0 Magnesium 1.9 Total Bilirubin 0.4 Direct Bilirubin 0.2 AST 60 H ALT 77 H Alkaline Phosphatase 272 H B-Natriuretic Peptide 330 H Total Protein 4.9 L Albumin 2.7 L 05/14/21 05:42 MCV MCH MCHC RDW Plt Count MPV Immature Gran % (Auto) Neut % (Auto) Lymph % (Auto) [place] % (Auto) Eos % (Auto) Baso % (Auto) Lymph # (Auto) [place] # (Auto) Eos # (Auto) Baso # (Auto) Abs Immat Gran (auto) Absolute Neuts (auto) Absolute Nucleated RBC Nucleated RBC % (auto) VBG pH 7.45 H VBG pCO2 36 VBG pO2 39 VBG HCO3 25 VBG O2 Saturation 61.0 VBG Base Excess 2.1 Anion Gap Estim Creat Clear Calc Estimated GFR Random Glucose Calcium Phosphorus Magnesium Total Bilirubin Direct Bilirubin AST ALT Alkaline Phosphatase B-Natriuretic Peptide Total Protein Albumin Procedures Date of Service Date of Service: 05/10/21 Progress Note: A&P Assessment and plan (1) Sacral decubitus ulcer, stage II: Status: Acute Plan wounds evaluated with wound care nurse and no debridement required at this time. Continue pressure reduction, foam dressing, assure adequate nutrition. Fall Risk Details Current Medications: Current Medications Amlodipine Besylate (Amlodipine Besylate 10 Mg Tablet) 10 mg PO DAILY [facility]; Protocol Last Admin: 05/14/21 07:57 Dose: 10 mg Documented by: Hydralazine HCl (Hydralazine Hcl 50 Mg Tablet) 100 mg PO TID [facility]; Protocol Last Admin: 05/14/21 07:56 Dose: 100 mg Documented by: Linezolid (Zyvox/D5w) 600 mg in 300 mls @ 300 mls/hr IV Q12H [facility] Stop: 05/25/21 15:59 Last Infusion: 05/14/21 05:34 Dose: Infused Documented by: Lisinopril (Lisinopril 5 Mg Tablet) 5 mg PO DAILY [facility]; Protocol Last Admin: 05/14/21 07:56 Dose: 5 mg Documented by: Omeprazole (Omeprazole 20 Mg Capsule.Dr) 20 mg PO DAILY@0630 [facility] Last Admin: 05/14/21 05:32 Dose: 20 mg Documented by: Pharmacy Consult (Consult Rx Vancomycin Dosing) 1 each MISCELLANE DAILY [facility] Time Spent With Patient Time: Total time spent is greater than 50% in coordination of care (as documented) at patient's floor/unit and/or counseling patient: Time with patient: 15 - 24 minutes Quality Stroke Does the patient have a stroke diagnosis?: No VTE Prior VTE?: No VTE Risk Level:: Medical - moderate - high VTE Device Contraindication: N/A - Device Ordered VTE Drug Contraindication: Treatment Not Tolerated
--- NOTE | 2021-05-10 15:02 | HO.PM.IMPN ---
Subjective Subjective Date of Service: 05/10/21 Interval History: Denies fever, chills, chest pain, cough, or dyspnea; just generalized weakness. Review of Systems Review of Systems: Yes all other systems are reviewed and are negative Physical Exam Vital Signs: Vital Signs: Last Vital Signs Temp 99.5 F 05/10/21 11:42 Pulse 72 05/10/21 11:42 Resp 15 05/10/21 11:42 BP 176/74 H 05/10/21 11:42 Pulse Ox 94 05/10/21 11:42 BMI result Body Mass Index 21.4 Gen: in no acute distress HEENT: sclera anicteric, moist mucus membranes Neck: supple Lungs: clear to auscultation bilaterally Heart: irregular, no murmurs Abd: soft, non-tender, non-distended Ext: no edema Skin: warm/well-perfused, bruising Neuro: alert and oriented to self Psych: impaired insight Objective Data Active Medications Amlodipine Besylate (Amlodipine Besylate 10 Mg Tablet) 10 mg PO DAILY [facility]; Protocol Last Admin: 05/10/21 08:16 Dose: 5 mg Documented by: CEE Comments: 5mg dose previously given Hydralazine HCl (Hydralazine Hcl 50 Mg Tablet) 50 mg PO TID [facility]; Protocol Last Admin: 05/10/21 14:23 Dose: 50 mg Documented by: CEE Ceftriaxone Sodium 1 gm/ (Sodium Chloride) 50 mls @ 100 mls/hr IV Q24H [facility] Last Infusion: 05/10/21 09:17 Dose: 100 mls/hr Documented by: CEE Pantoprazole Sodium (Pantoprazole Sodium 40 Mg/10 Ml Vial) 40 mg IVPUSH DAILY@0630 [facility] Last Admin: 05/10/21 05:30 Dose: 40 mg Documented by: MARION Labs CBC & Chem 7: 05/10/21 05:28 05/10/21 05:28 Labs: Laboratory Results - last 24 hr 05/10/21 05/10/21 05/10/21 05:28 05:28 05:28 MCV 92.0 MCH 30.1 MCHC 32.7 RDW 14.9 Plt Count 171 MPV 10.9 Immature Gran % (Auto) 1.0 H Neut % (Auto) 82.1 H Lymph % (Auto) 5.8 L [place] % (Auto) 10.4 Eos % (Auto) 0.5 Baso % (Auto) 0.2 Lymph # (Auto) 0.8 L [place] # (Auto) 1.4 H Eos # (Auto) 0.1 Baso # (Auto) 0.0 Abs Immat Gran (auto) 0.13 H Absolute Neuts (auto) 10.9 H Absolute Nucleated RBC 0.000 Nucleated RBC % (auto) 0.0 VBG pH VBG pCO2 VBG pO2 VBG HCO3 VBG O2 Saturation VBG Base Excess Anion Gap 13 Estim Creat Clear Calc 27.6 Estimated GFR 32 Random Glucose 109 Calcium 9.3 Phosphorus 2.9 Magnesium 1.7 Total Bilirubin 0.3 Direct Bilirubin 0.2 AST 24 ALT 47 H Alkaline Phosphatase 246 H B-Natriuretic Peptide 1090 H Total Protein 4.7 L Albumin 2.7 L 05/10/21 05/10/21 05:28 05:35 MCV MCH MCHC RDW Plt Count MPV Immature Gran % (Auto) Neut % (Auto) Lymph % (Auto) [place] % (Auto) Eos % (Auto) Baso % (Auto) Lymph # (Auto) [place] # (Auto) Eos # (Auto) Baso # (Auto) Abs Immat Gran (auto) Absolute Neuts (auto) Absolute Nucleated RBC Nucleated RBC % (auto) VBG pH 7.54 H VBG pCO2 29 VBG pO2 73 VBG HCO3 25 VBG O2 Saturation 95.0 VBG Base Excess 3.6 Anion Gap 14 Estim Creat Clear Calc 28.4 Estimated GFR 33 Random Glucose 108 Calcium 9.3 Phosphorus Magnesium Total Bilirubin Direct Bilirubin AST ALT Alkaline Phosphatase B-Natriuretic Peptide Total Protein Albumin Microbiology Microbiology Results: Microbiology 05/07/21 22:02 Gram Stain - Final Sacrum Routine Culture - Preliminary 05/07/21 14:10 Blood Culture - Preliminary Blood - Venous Enterococcus faecium 05/07/21 14:10 Blood Culture - Preliminary Blood - Venous No growth after 48 hours. Assessment and Plan (1) Bradycardia: Status: Acute (2) Paroxysmal atrial fibrillation: Status: Acute (3) Anemia: Status: Acute (4) Hypothermia: Status: Acute (5) Acute hypotension: Status: Acute (6) Chronic kidney failure: Status: Acute (7) MATILDE (acute kidney injury): Status: Acute (8) Dementia: Status: Acute Plan hospital d#4 81yo F with CLL, chronic anemia, CKD3, chronic diastolic HF, HTN, dementia likely Alzheimer's recently discharged from [facility] after recurrent falls with question of sycnope; extensive workup with normal EEG, CT head with no acute process; worked up for acute/chronic anemia with EGD that showed erosive duodenitis + gastritis, requiring 2u pRBCs; also had mild hemolysis, encephalopathy, and bradycardia causing carvedilol to be held brought in to [facility] 05/07/21 due to being found lethargic + bradycardic by visiting nurses EMS found her hypotensive and gave her NS + atropine found to be hypothermic in ED with Bower J waves placed on warmer + norepinephrine gtt and admitted to ICU transfused 2u pRBCs for Hb 7.7 BP/HR/temp improved and stepped down to hospitalist service 05/08 1 of 2 BCx from 05/07/21 growing Enterococcus faecium, susceptibilities pending # Enterococcus faecium bacteremia - change ceftriaxone to vancomycin [got 1 dose 05/08], repeat BCx, check TTE, consult ID # bradycardia due to SSS # pAF - presented with SB in 35s, converted to AF with controlled rate in 60s-70s then NSR - hold carvedilol, d/c donepezil - Cardiology consulted - due to anemia + dementia, not a good candidate for anticoagulation at this time # hypotension - due to hypovolemia + excess antihypertensives, resolved and now hypertensive # HTN - resume hydralazine at 50 mg tid [can increase to 100 mg tid if needed], amlodipine 5 mg increased to 10 mg daily; d/alfred carvedilol due to bradycardia and lisinopril due to MATILDE # acute/chronic anemia - improved s/p 2u pRBCs. continue IV PPI for recent EGD finding of duodenitis/gastritis; no active bleeding. no further intervention for hemolysis as per Heme/Onc # MATILDE/CKD3 - lisinopril held, SCr close to baseline # chronic diastolic CHF - not hypervolemic # stage 2 coccygeal ulcer - bedside debridement today per Gen Surg, continue foam dressing, frequent position changes, high-protein diet # CLL - outpt Oncology f/u # dementia # anxiety - medications held [was on donepezil, memantine, clonazepam] # VTE ppx - SCDs, no heparinoids given recent anemia Quality Stroke Does the patient have a stroke diagnosis?: No VTE Prior VTE?: No VTE Risk Level:: Medical - moderate - high VTE Device Contraindication: N/A - Device Ordered VTE Drug Contraindication: Treatment Not Tolerated
--- NOTE | 2021-05-10 15:50 | PHA.PROG ---
Admission Date/Time: May 07, 2021 17:25 Indication: BACTEREMIA Weight in k.1 kg Adjusted body weight in Kg: [place] body weight in Kg: Obesity Dosing Indication % IBW: Serum Creatinine - Last 168 Hours 05/07/21 05/08/21 05/09/21 14:10 05:32 06:06 Creatinine 1.91 H 1.79 H 1.56 H 05/10/21 05/10/21 05:28 05:28 Creatinine 1.55 H 1.51 H Estimated CrCl and GFR - Last 168 Hours 05/07/21 05/08/21 05/09/21 14:10 05:32 06:06 Estim Creat Clear Calc 22.2 23.9 27.5 Estimated GFR 25 27 32 05/10/21 05/10/21 05:28 05:28 Estim Creat Clear Calc 27.6 28.4 Estimated GFR 32 33 Vancomycin Loading Dose: 1250 MG Current Vancomycin Dosing Regimen:750 MG Q 24 HOURS Vancomycin Monitoring using AUC goal of 400 - 600 range with trough as surrogate marker: Date and Time for next Vancomycin Level to be drawn:will check level after 2 doses Pharmacist Comments on Vancomycin Plan:load of 1250mg then 750 mg daily, will check level after 2 doses, predicted AUC of 498 Vancomycin dosing will take advantage of Kleo as a clinical decision support tool that uses Bayesian modeling to calculate individual patient's pharmacokinetic parameters and forecast the patient's drug concentration time course with the target goal AUC 24 range of 400 - 600 mg/L/hr.
[2021-05-10] MEDS: vancomycin HCL 1,250 MG in 0.9 % Sodium Chloride 250 ML 166.67 MG IV (16:01)
[2021-05-11] VITALS (7 sets, daily range): BP systolic 137–194; BP diastolic 53–78; PULSE 72–100; RESP 14–20; TEMP 36.7–37.7; O2SAT 94–96
[2021-05-11] MEDS: Pantoprazole Sodium 40 MG/10 ML VIAL IVPUSH (04:29)
[2021-05-11 06:05] LABS: MANUAL DIFF FLAG NO; Venous Blood Gas Refer to POC result
[2021-05-11 06:05] LABS: VBG HCO3 26 mmol/L (22-26); VBG pCO2 31 mmHg; VBG pH 7.53 (7.32-7.43); VBG pO2 87 mmHg
[2021-05-11 06:06] LABS: Basophils Percent Auto 0.3 % (0-2); Eosinophils Absolute Auto 0.2 X10*3/uL (0.0-0.4); Eosinophils Percent Auto 1.6 % (0-4); Hematocrit 29.7 % (37.0-47.0); Hemoglobin 9.5 g/dl (12.0-16.0); Imm Gran Abs Auto 0.14 X10*3/uL (0.00-0.03); Mean Corpuscular Hemoglobin 29.6 pg (27.0-33.0); Mean Corpuscular Volume 92.5 fL (80.0-98.0); Mean Platelet Volume 10.5 fL (9.4-12.3); Monocytes Absolute Auto 1.1 X10*3/uL (0.1-1.2); Monocytes Percent Auto 7.8 % (2-11); Neutrophils Absolute Auto 11.9 x10*3/uL (2.0-8.3); Neutrophils Percent Auto 82.3 % (45-73); Platelet Count 180 X10*3/uL (160-400); Red Blood Count 3.21 X10*6/uL (4.20-5.50); Red Cell Distribution Width 14.6 % (11.0-16.0); White Blood Count 14.4 X10*3/uL (4.8-10.8)
[2021-05-11 06:32] LABS: B Type Natriuretic Peptide 627 pg/mL (<100)
[2021-05-11 06:38] LABS: Anion Gap 19 (12-20); Blood Urea Nitrogen 39 mg/dL (9-16); Calcium 9.5 mg/dL (8.4-10.2); Carbon Dioxide 22 mmol/L (22-29); Chloride 110 mmol/L (96-108); Estimated Glomerular Filt Rate 34; Glucose Random 96 mg/dL (60-115); Magnesium 1.6 mg/dL (1.6-2.6); Potassium 3.7 mmol/L (3.3-5.1); Sodium 147 mmol/L (135-145)
[2021-05-11] MEDS: hydrALAZINE HCl 50 MG TABLET 100 MG PO ×3 (08:06→20:33)
[2021-05-11] MEDS: amLODIPine Besylate 10 MG TABLET PO (08:06)
[2021-05-11 08:11] LABS: Alanine Aminotransferase 47 U/L (0-31); Alkaline Phosphatase 249 U/L (39-117); Anion Gap 16 (12-20); Aspartate Amino Transferase 33 U/L (5-31); Bilirubin Direct 0.2 mg/dL (0.0-0.5); Bilirubin Total 0.4 mg/dL (0.0-1.0); Blood Urea Nitrogen 39 mg/dL (9-16); Carbon Dioxide 23 mmol/L (22-29); Chloride 110 mmol/L (96-108); Creatinine Clr Calc Pharmacy 29.8; Estimated Glomerular Filt Rate 35; Glucose Random 97 mg/dL (60-115); Magnesium 1.6 mg/dL (1.6-2.6); Phosphorus 3.4 mg/dL (2.7-4.5); Potassium 3.7 mmol/L (3.3-5.1); Sodium 145 mmol/L (135-145); Total Protein 5.2 g/dL (6.5-8.0)
--- NOTE | 2021-05-11 09:52 | HO.PM.IMPN ---
Subjective Subjective Date of Service: 05/11/21 Interval History: Feels much better. Good appetite. No pain. No respiratory symptoms. No fever/chills. Review of Systems Review of Systems: Yes all other systems are reviewed and are negative Physical Exam Vital Signs: Vital Signs: Last Vital Signs Temp 98.1 F 05/11/21 07:41 Pulse 100 05/11/21 09:01 Resp 20 05/11/21 07:41 BP 194/78 H 05/11/21 07:41 Pulse Ox 96 05/11/21 09:01 BMI result Body Mass Index 21.4 Gen: in no acute distress HEENT: sclera anicteric, moist mucus membranes Neck: supple Lungs: clear to auscultation bilaterally Heart: RRR, no murmurs Abd: soft, non-tender, non-distended Ext: no edema Skin: warm/well-perfused, bruising Neuro: alert and oriented x3 Psych: appropriate affect Objective Data Active Medications Amlodipine Besylate (Amlodipine Besylate 10 Mg Tablet) 10 mg PO DAILY [facility]; Protocol Last Admin: 05/11/21 08:06 Dose: 10 mg Documented by: COTEMA Hydralazine HCl (Hydralazine Hcl 50 Mg Tablet) 100 mg PO TID [facility]; Protocol Last Admin: 05/11/21 08:06 Dose: 100 mg Documented by: RICHARDEMA Vancomycin HCl 750 mg/ Sodium (Chloride) 265 mls @ 265 mls/hr IV Q24H [facility] Pantoprazole Sodium (Pantoprazole Sodium 40 Mg/10 Ml Vial) 40 mg IVPUSH DAILY@0630 [facility] Last Admin: 05/11/21 04:29 Dose: 40 mg Documented by: ANTOIC Pharmacy Consult (Consult Rx Vancomycin Dosing) 1 each MISCELLANE DAILY [facility] Labs CBC & Chem 7: 05/11/21 05:52 05/11/21 05:52 Labs: Laboratory Results - last 24 hr 05/11/21 05/11/21 05/11/21 05:52 05:52 05:52 MCV 92.5 MCH 29.6 MCHC 32.0 RDW 14.6 Plt Count 180 MPV 10.5 Immature Gran % (Auto) 1.0 H Neut % (Auto) 82.3 H Lymph % (Auto) 7.0 L [place] % (Auto) 7.8 Eos % (Auto) 1.6 Baso % (Auto) 0.3 Lymph # (Auto) 1.0 L [place] # (Auto) 1.1 Eos # (Auto) 0.2 Baso # (Auto) 0.0 Abs Immat Gran (auto) 0.14 H Absolute Neuts (auto) 11.9 H Absolute Nucleated RBC 0.000 Nucleated RBC % (auto) 0.0 VBG pH VBG pCO2 VBG pO2 VBG HCO3 VBG O2 Saturation VBG Base Excess Anion Gap 16 Estim Creat Clear Calc 29.8 Estimated GFR 35 Random Glucose 97 Calcium 9.0 Phosphorus 3.4 Magnesium 1.6 Total Bilirubin 0.4 Direct Bilirubin 0.2 AST 33 H ALT 47 H Alkaline Phosphatase 249 H B-Natriuretic Peptide 627 H Total Protein 5.2 L Albumin 3.0 L 05/11/21 05/11/21 05/11/21 05:52 05:52 05:52 MCV Cancelled MCH Cancelled MCHC Cancelled RDW Cancelled Plt Count Cancelled MPV Cancelled Immature Gran % (Auto) Neut % (Auto) Lymph % (Auto) [place] % (Auto) Eos % (Auto) Baso % (Auto) Lymph # (Auto) [place] # (Auto) Eos # (Auto) Baso # (Auto) Abs Immat Gran (auto) Absolute Neuts (auto) Absolute Nucleated RBC Cancelled Nucleated RBC % (auto) Cancelled VBG pH VBG pCO2 VBG pO2 VBG HCO3 VBG O2 Saturation VBG Base Excess Anion Gap 19 Estim Creat Clear Calc 29.0 Estimated GFR 34 Random Glucose 96 Calcium 9.5 Phosphorus Magnesium 1.6 Total Bilirubin Direct Bilirubin AST ALT Alkaline Phosphatase B-Natriuretic Peptide Cancelled Total Protein Albumin 05/11/21 05:59 MCV MCH MCHC RDW Plt Count MPV Immature Gran % (Auto) Neut % (Auto) Lymph % (Auto) [place] % (Auto) Eos % (Auto) Baso % (Auto) Lymph # (Auto) [place] # (Auto) Eos # (Auto) Baso # (Auto) Abs Immat Gran (auto) Absolute Neuts (auto) Absolute Nucleated RBC Nucleated RBC % (auto) VBG pH 7.53 H VBG pCO2 31 VBG pO2 87 VBG HCO3 26 VBG O2 Saturation 96.0 VBG Base Excess 4.0 Anion Gap Estim Creat Clear Calc Estimated GFR Random Glucose Calcium Phosphorus Magnesium Total Bilirubin Direct Bilirubin AST ALT Alkaline Phosphatase B-Natriuretic Peptide Total Protein Albumin TTE 05/10/21 - The left ventricular systolic function is normal. The visually estimated ejection fraction is between 65-70%. - No clear valvular vegetations. Microbiology Microbiology Results: Microbiology 05/07/21 22:02 Gram Stain - Final Sacrum Routine Culture - Final 05/07/21 14:10 Blood Culture - Final Blood - Venous Enterococcus faecium Assessment and Plan (1) Bradycardia: Status: Acute (2) Paroxysmal atrial fibrillation: Status: Acute (3) Anemia: Status: Acute (4) Hypothermia: Status: Acute (5) Acute hypotension: Status: Acute (6) Chronic kidney failure: Status: Acute (7) MATILDE (acute kidney injury): Status: Resolved (8) Dementia: Plan hospital d#5 81yo F with CLL, chronic anemia, CKD3, chronic diastolic HF, HTN, dementia likely Alzheimer's [place] [facility] with question of sycnope; extensive workup with normal EEG, CT head with no acute process; worked up for acute/chronic anemia with EGD that showed erosive duodenitis + gastritis, requiring 2u pRBCs; also had mild hemolysis, encephalopathy, and bradycardia causing carvedilol to be held [place] in [place] [facility] [place] due to being found lethargic + bradycardic by visiting nurses EMS found her hypotensive and gave her NS + atropine found to be hypothermic in ED with Bower J waves placed on warmer + norepinephrine gtt and admitted to ICU transfused 2u pRBCs for Hb 7.7 BP/HR/temp improved and stepped down to hospitalist service 05/08 1 of 2 BCx from 05/07/21 growing VRE # VRE bacteremia - d/c vancomycin, repeat BCx today, consult ID # bradycardia due to SSS # pAF - presented with SB in 35s, converted to AF with controlled rate in 60s-70s then NSR - d/c'ed carvedilol + donepezil - Cardiology consulted - due to anemia + dementia, not a good candidate for anticoagulation at this time # hypotension - due to hypovolemia + excess antihypertensives, resolved and now hypertensive # HTN - continue amlodipine 10 mg/d, increase hydralazine 50->100 mg tid; d/alfred carvedilol due to bradycardia and lisinopril due to MATILDE # acute/chronic anemia - improved s/p 2u pRBCs. continue IV PPI for recent EGD finding of duodenitis/gastritis; no active bleeding. no further intervention for hemolysis as per Heme/Onc # MATILDE/CKD3 - lisinopril held, SCr close to baseline # chronic diastolic CHF - not hypervolemic # stage 2 coccygeal ulcer - bedside debridement today per Gen Surg, continue foam dressing, frequent position changes, high-protein diet # CLL - outpt Oncology f/u # dementia # anxiety - medications held [was on donepezil, memantine, clonazepam] # VTE ppx - SCDs, no heparinoids given anemia + FOBT+ Quality Stroke Does the patient have a stroke diagnosis?: No VTE Prior VTE?: No VTE Risk Level:: Medical - moderate - high VTE Device Contraindication: N/A - Device Ordered VTE Drug Contraindication: Treatment Not Tolerated
--- NOTE | 2021-05-11 12:34 | MHC.CM.PN ---
EMR REVIEWED, PER HOSPITALIST PT'S BC POSITIVE FOR VRE, NEW BC'S DRAWN TODAY, ANTIC D/C EARLY NEXT WEEK W/PICC AND IV ABX, PLAN REMAINS STR. CM WILL CONT TO FOLLOW D/C NEEDS
--- NOTE | 2021-05-11 13:04 | MHC.CLN ---
F/U VISITED PATIENT DURING LUNCH. SITTING UP IN BED, EATING. HAD 3 UNOPENED ENSURE SUPPLEMENTS ON TABLE. STATED DOES NOT LIKE. DISCONTINUING ENSURE AND ADDING ENSURE CLEAR. ENSURE CLEAR BID PROVIDES 480 KCAL, 16 G PROTEIN. DIET=REGULAR. SUPPLEMENTS TO PROMOTE WOUND HEALING. INCREASED NUTRITION NEEDS DUE TO PRESSURE INJURIES. STAGE II TO RIGHT BUTTOCK; STAGE III TO COCCYX; BLANCHABLE REDNESS TO SACRUM. CONTINUE TO FOLLOW INTAKE OF MEALS AND SUPPLEMENT.
--- NOTE | 2021-05-11 14:19 | P.CNID_ITS ---
History of Present Illness Data of Consult Service Date: 05/11/21 Requesting physician: Luis A Bonilla Primary Care Provider: Walter Braun MD HPI Reason for consult: septic shock She presents with lethargy and hypotension to ER requiring Levophed. She has no fever or chills. She received 500 cc NS bolus She has 1/2 blood culture VRE. She has had fall. Review of Systems Review of Systems: Yes all other systems are reviewed and are negative PMFSH Past Medical History Medical History (Updated 05/11/21 @ 14:23 by Elsie Solis MD) Anemia CHF (congestive heart failure) CLL (chronic lymphocytic leukemia) Coronary artery calcification seen on CAT scan COVID-19 vaccine series completed Dementia Essential hypertension Hx of reduction of closed dislocation Hyperlipidemia NSTEMI (non-ST elevated myocardial infarction) Peripheral artery disease Peripheral vascular disease Pulmonary fibrosis Ulcerative colitis Vertigo VRE bacteremia Family History Family History Father No problems noted. Mother No problems noted. Family history: reviewed and not pertinent Surgical History Surgical History H/O carotid endarterectomy H/O colonoscopy History of hip replacement History of liver biopsy History of revision of total hip arthroplasty Hx of lumbar discectomy S/P popliteal-distal bypass Social History Social History Household Members: Spouse Household Members Other:: Housing: House Are you a primary insurance healthcare representative to a significant other at home: No Unable to assess alcohol history related to: Unknown Alcohol intake: current Alcohol intake frequency: does not drink Alcohol type: wine Patient Tobacco Use Status: Never used Tobacco Tobacco use type: Cigarette Years Smoked: 62 e-Cigarette/Vaping Use: Currently Using Second Hand Smoke Exposure: No Use of substances other than those prescribed or required for medical reasons: No Currently Displaying Signs/Symptoms of Drug Intoxication Withdrawal: No Spiritual Healthcare Practices: unknown Sabianism Healthcare Practices: unknown Cultural Healthcare Practices: unknown Advance Directives: Yes Advance Directives on File: Yes Advance Directives Date on File: 05/06/20 service: No Current occupational status: retired 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 Meds Allergies Allergy/AdvReac Type Severity Reaction Status Date / Time diazepam [DIAZEPAM] Allergy Severe RASH Verified 04/09/21 15:13 [id number]-NjK Reductase Allergy Severe Muscle Pain Verified 04/09/21 15:13 Inhibitor [[id number] REDUCTASE INHIBITOR] Active Medications: Current Medications Amlodipine Besylate (Amlodipine Besylate 10 Mg Tablet) 10 mg PO DAILY [facility]; Protocol Last Admin: 05/11/21 08:06 Dose: 10 mg Documented by: Hydralazine HCl (Hydralazine Hcl 50 Mg Tablet) 100 mg PO TID [facility]; Protocol Last Admin: 05/11/21 08:06 Dose: 100 mg Documented by: Pantoprazole Sodium (Pantoprazole Sodium 40 Mg/10 Ml Vial) 40 mg IVPUSH DAILY@0630 [facility] Last Admin: 05/11/21 04:29 Dose: 40 mg Documented by: Pharmacy Consult (Consult Rx Vancomycin Dosing) 1 each MISCELLANE DAILY [facility] Home Medications Medication Instructions Recorded Confirmed Last Taken Type ascorbic acid (vitamin C) 1,000 mg 1,000 mg PO DAILY tab 03/09/20 05/07/21 04/29/21 History tablet aspirin 81 mg tablet,delayed 81 mg PO BEDTIME 03/09/20 05/07/21 04/28/21 History release cholecalciferol (vitamin D3) 250 250 mcg PO DAILY 03/09/20 05/07/21 04/29/21 History mcg (10,000 unit) capsule clonazepam 0.5 mg tablet 1 mg PO BEDTIME 03/09/20 05/07/21 04/28/21 History donepezil 10 mg tablet 10 mg PO BEDTIME 03/09/20 05/07/21 04/28/21 History memantine 10 mg tablet 10 mg PO BEDTIME 03/09/20 05/07/21 04/28/21 History bbtbbfhk-pvx-jgffj acid 0.4 1 tab PO DAILY 03/09/20 05/07/21 04/29/21 History mg-lycopene 300 mcg-lutein 250 mcg tablet (Centrum Silver) hydrochlorothiazide 12.5 mg capsule 12.5 mg PO DAILY 10/02/20 05/07/21 04/29/21 History lisinopril 5 mg tablet 1 tab PO DAILY 01/02/21 05/07/21 04/29/21 History Lactobacillus acidophilus 10 10,000 mmu cells PO DAILY 05/07/21 05/07/21 Unknown History billion cell capsule (Probiotic) amlodipine 10 mg tablet 10 mg PO BEDTIME 05/07/21 05/07/21 Unknown History calcitonin (salmon) 200 1 spray INTRANASAL DAILY 05/07/21 05/07/21 Unknown History unit/actuation nasal spray evolocumab 140 mg/mL subcutaneous 140 mg SUBCUT Q2W 05/07/21 05/07/21 Unknown History pen injector (Repatha SureClick) ferrous sulfate 325 mg (65 mg 325 mg PO DAILY 05/07/21 05/07/21 Unknown History iron) tablet Physical Exam Vital Signs: Vital Signs: Last Vital Signs Temp 99.2 F 05/11/21 11:17 Pulse 72 05/11/21 11:17 Resp 18 05/11/21 11:17 BP 140/53 H 05/11/21 11:17 Pulse Ox 96 05/11/21 11:17 BMI result Body Mass Index 21.4 Const: General: cooperative HENMT: Head: Yes normal to inspection Mouth: Normal oral and palatal mucosa present Eyes: General: appearance normal, both eyes and all related structures Resp: Effort & Inspection: normal respiratory effort Cardio: Rate: regular rate Rhythm: regular rhythm GI: Palpation (GI): Soft to palpation and not firm Skin: General skin exam: no rashes or lesions noted Extrem: General: Yes normal to inspection Results Labs CBC & Chem 7: 05/11/21 05:52 05/11/21 05:52 Labs: Short CBC 05/11/21 05/11/21 Range/Units 05:52 05:52 WBC 14.4 H Cancelled (4.8-10.8) X10*3/uL Hgb 9.5 L Cancelled (12.0-16.0) g/dl Hct 29.7 L Cancelled (37.0-47.0) % Plt Count 180 Cancelled (160-400) X10*3/uL BMP 05/11/21 05/11/21 05:52 05:52 Sodium 145 147 H Potassium 3.7 3.7 Chloride 110 H 110 H Carbon Dioxide 23 22 BUN 39 H 39 H Creatinine 1.44 H 1.48 H Calcium 9.0 9.5 Liver Function 05/11/21 Range/Units 05:52 Total Bilirubin 0.4 (0.0-1.0) mg/dL Direct Bilirubin 0.2 (0.0-0.5) mg/dL AST 33 H (5-31) U/L ALT 47 H (0-31) U/L Alkaline Phosphatase 249 H (39-117) U/L Albumin 3.0 L (3.5-5.0) g/dL Microbiology Microbiology Results: Microbiology 05/07/21 22:02 Sacrum Gram Stain - Final 05/07/21 22:02 Sacrum Routine Culture - Final 05/07/21 14:10 Blood - Venous Blood Culture - Final Enterococcus faecium 05/07/21 14:10 Blood - Venous Blood Culture - Preliminary No growth after 48 hours. Assessment and Plan (1) Sacral decubitus ulcer, stage II: Status: Acute (2) Bradycardia: Status: Acute (3) Acute hypotension: Status: Acute (4) VRE bacteremia: Status: Acute She has new sacral decubiti ulcer that doesnt look severe. She has bacteremia from VRE which may be real but doesnt look like involves urine. Other possibilities could be earlier UTI and bacteriruria now resolved Plan Would consider Zyvox and Daptomycin 12 mg/kg/day. Will consult with pharmacy as linezolid is not bacteriocidal and high dose Daptomycin can cause increased CK but may be helpful Would obtain MARIELLA if able. There is no osteomyelitis seen on CT of abd/pelvis but still may be site (MRI not able to be done with increased creatinine probably now)
[2021-05-11] MEDS: Linezolid/D5W 600 MG/300 ML PIGGYBACK 300 MG IV (16:38)
[2021-05-12] MEDS: Linezolid/D5W 600 MG/300 ML PIGGYBACK 300 MG IV ×2 (03:26→15:42)
[2021-05-12 03:59] VITALS: BP 147/65; PULSE 78; RESP 18; TEMP 36.6; O2SAT 99
[2021-05-12 05:46] LABS: MANUAL DIFF FLAG NO
[2021-05-12 05:48] LABS: Basophils Percent Auto 0.2 % (0-2); Eosinophils Absolute Auto 0.3 X10*3/uL (0.0-0.4); Eosinophils Percent Auto 2.7 % (0-4); Hematocrit 26.3 % (37.0-47.0); Hemoglobin 8.6 g/dl (12.0-16.0); Imm Gran Abs Auto 0.09 X10*3/uL (0.00-0.03); Imm Gran Pct Auto 0.8 % (0.0-0.4); Lymphocytes Percent Auto 8.6 % (20-40); Mean Corpuscular HGB Conc 32.7 g/dl (31.0-35.0); Mean Corpuscular Hemoglobin 29.8 pg (27.0-33.0); Mean Platelet Volume 10.4 fL (9.4-12.3); Monocytes Percent Auto 8.9 % (2-11); Neutrophils Percent Auto 78.8 % (45-73); Platelet Count 179 X10*3/uL (160-400); Red Blood Count 2.89 X10*6/uL (4.20-5.50); Red Cell Distribution Width 14.4 % (11.0-16.0); White Blood Count 11.4 X10*3/uL (4.8-10.8)
[2021-05-12 05:49] LABS: Venous Blood Gas Refer to POC result
[2021-05-12 05:50] LABS: VBG Base Excess 2.7 mmol/L; VBG HCO3 25 mmol/L (22-26); VBG pCO2 32 mmHg; VBG pO2 67 mmHg
[2021-05-12] MEDS: Pantoprazole Sodium 40 MG/10 ML VIAL IVPUSH (06:01)
[2021-05-12 06:08] LABS: B Type Natriuretic Peptide 358 pg/mL (<100)
[2021-05-12 06:18] LABS: Alanine Aminotransferase 58 U/L (0-31); Albumin Level 2.7 g/dL (3.5-5.0); Alkaline Phosphatase 231 U/L (39-117); Anion Gap 16 (12-20); Aspartate Amino Transferase 61 U/L (5-31); Bilirubin Direct 0.2 mg/dL (0.0-0.5); Bilirubin Total 0.5 mg/dL (0.0-1.0); Blood Urea Nitrogen 37 mg/dL (9-16); Calcium 8.5 mg/dL (8.4-10.2); Carbon Dioxide 22 mmol/L (22-29); Chloride 106 mmol/L (96-108); Creatinine Clr Calc Pharmacy 26.8; Estimated Glomerular Filt Rate 31; Glucose Random 129 mg/dL (60-115); Phosphorus 3.8 mg/dL (2.7-4.5); Potassium 3.5 mmol/L (3.3-5.1); Sodium 140 mmol/L (135-145); Total Protein 4.7 g/dL (6.5-8.0)
[2021-05-12 06:37] LABS: Magnesium 1.4 mg/dL (1.6-2.6)
--- NOTE | 2021-05-12 06:44 | PC.NURSE ---
lab called with critical magnesium level 1.4. notified
[2021-05-12 07:55] VITALS: BP 172/78; PULSE 79; RESP 18; TEMP 36.8; O2SAT 96
[2021-05-12] MEDS: amLODIPine Besylate 10 MG TABLET PO (10:03)
[2021-05-12] MEDS: hydrALAZINE HCl 50 MG TABLET 100 MG PO ×3 (10:03→20:04)
[2021-05-12] MEDS: Magnesium Sulfate/H2O 2 GM/50 ML PIGGYBACK IV (10:03)
--- NOTE | 2021-05-12 10:39 | P.PNIM_ITS ---
Subjective Subjective Date of Service: 05/12/21 Interval History: Continues to feel better- good appetite, no fever, no chills, no cough, no abd pain, no dysuria. Some sundowning last night. Review of Systems Review of Systems: Yes all other systems are reviewed and are negative Physical Exam Vital Signs: Vital Signs: Last Vital Signs Temp 98.2 F 05/12/21 07:55 Pulse 79 05/12/21 07:55 Resp 18 05/12/21 07:55 BP 172/78 H 05/12/21 07:55 Pulse Ox 96 05/12/21 07:55 BMI result Body Mass Index 21.4 Gen: in no acute distress HEENT: sclera anicteric, moist mucus membranes, resolving bruising superior and lateral to L orbit Neck: supple Lungs: clear to auscultation bilaterally Heart: RRR, no murmurs Abd: soft, non-tender, non-distended Ext: no edema Skin: warm/well-perfused, bruising Neuro: alert and oriented x3 Psych: appropriate affect Objective Data Active Medications Amlodipine Besylate (Amlodipine Besylate 10 Mg Tablet) 10 mg PO DAILY [facility]; Protocol Last Admin: 05/12/21 10:03 Dose: 10 mg Documented by: FEDE Hydralazine HCl (Hydralazine Hcl 50 Mg Tablet) 100 mg PO TID [facility]; Protocol Last Admin: 05/12/21 10:03 Dose: 100 mg Documented by: FEDE Linezolid (Zyvox/D5w) 600 mg in 300 mls @ 300 mls/hr IV Q12H [facility] Stop: 05/25/21 15:59 Last Infusion: 05/12/21 05:26 Dose: 0 mls/hr Documented by: MYRANDA Pantoprazole Sodium (Pantoprazole Sodium 40 Mg/10 Ml Vial) 40 mg IVPUSH DAILY@0630 [facility] Last Admin: 05/12/21 06:01 Dose: 40 mg Documented by: MYRANDA Pharmacy Consult (Consult Rx Vancomycin Dosing) 1 each MISCELLANE DAILY [facility] Labs CBC & Chem 7: 05/12/21 05:39 05/12/21 05:39 Labs: Laboratory Results - last 24 hr 05/12/21 05/12/21 05/12/21 05:39 05:39 05:39 MCV 91.0 MCH 29.8 MCHC 32.7 RDW 14.4 Plt Count 179 MPV 10.4 Immature Gran % (Auto) 0.8 H Neut % (Auto) 78.8 H Lymph % (Auto) 8.6 L [place] % (Auto) 8.9 Eos % (Auto) 2.7 Baso % (Auto) 0.2 Lymph # (Auto) 1.0 L [place] # (Auto) 1.0 Eos # (Auto) 0.3 Baso # (Auto) 0.0 Abs Immat Gran (auto) 0.09 H Absolute Neuts (auto) 9.0 H Absolute Nucleated RBC 0.000 Nucleated RBC % (auto) 0.0 VBG pH VBG pCO2 VBG pO2 VBG HCO3 VBG O2 Saturation VBG Base Excess Anion Gap 16 Estim Creat Clear Calc 26.8 Estimated GFR 31 Random Glucose 129 H Calcium 8.5 D Phosphorus 3.8 Magnesium 1.4 L* Total Bilirubin 0.5 Direct Bilirubin 0.2 AST 61 H ALT 58 H Alkaline Phosphatase 231 H B-Natriuretic Peptide 358 H Total Protein 4.7 L Albumin 2.7 L 05/12/21 05:43 MCV MCH MCHC RDW Plt Count MPV Immature Gran % (Auto) Neut % (Auto) Lymph % (Auto) [place] % (Auto) Eos % (Auto) Baso % (Auto) Lymph # (Auto) [place] # (Auto) Eos # (Auto) Baso # (Auto) Abs Immat Gran (auto) Absolute Neuts (auto) Absolute Nucleated RBC Nucleated RBC % (auto) VBG pH 7.50 H VBG pCO2 32 VBG pO2 67 VBG HCO3 25 VBG O2 Saturation 92.0 VBG Base Excess 2.7 Anion Gap Estim Creat Clear Calc Estimated GFR Random Glucose Calcium Phosphorus Magnesium Total Bilirubin Direct Bilirubin AST ALT Alkaline Phosphatase B-Natriuretic Peptide Total Protein Albumin Microbiology Microbiology Results: Microbiology 05/11/21 05:52 Blood Culture - Preliminary Blood - Venous No growth after 24 hours. 05/11/21 05:52 Blood Culture - Preliminary Blood - Venous No growth after 24 hours. 05/07/21 22:02 Gram Stain - Final Sacrum Routine Culture - Final 05/07/21 14:10 Blood Culture - Final Blood - Venous Enterococcus faecium Assessment and Plan (1) Bradycardia: Status: Acute (2) Paroxysmal atrial fibrillation: Status: Acute (3) Anemia: Status: Acute (4) Hypothermia: Status: Acute (5) Acute hypotension: Status: Acute (6) Chronic kidney failure: Status: Acute (7) MATILDE (acute kidney injury): Status: Resolved (8) Dementia: Plan hospital d#6 81yo F with CLL, chronic anemia, CKD3, chronic diastolic HF, HTN, dementia likely Alzheimer's recently discharged [place] [facility] [place] recurrent falls with question of sycnope; extensive workup with normal EEG, CT head with no acute process; worked up for acute/chronic anemia with EGD that showed erosive duodenitis + gastritis, requiring 2u pRBCs; also had mild hemolysis, encephalopathy, and bradycardia causing carvedilol to be held brought in to [facility] 05/07/21 due to being found lethargic + bradycardic by visiting nurses EMS found her hypotensive and gave her NS + atropine found to be hypothermic in ED with Bower J waves placed on warmer + norepinephrine gtt and admitted to ICU transfused 2u pRBCs for Hb 7.7 BP/HR/temp improved and stepped down to hospitalist service 05/08 1 of 2 BCx from 05/07/21 growing VRE # VRE bacteremia - linezolid d#2, ID following, discuss duration/PICC line, follow repeat BCx from 05/11 # bradycardia due to SSS # pAF - presented with SB in 35s, converted to AF with controlled rate in 60s-70s then NSR - d/c'ed carvedilol + donepezil due to bradycardia - Cardiology consulted; due to anemia + dementia, not a good candidate for anticoagulation at this time # hypotension - due to hypovolemia + excess antihypertensives, resolved and now hypertensive # HTN - continue amlodipine 10 mg/d, increased hydralazine 50->100 mg tid; d/alfred carvedilol due to bradycardia and lisinopril due to MATILDE; continue to monitor # acute/chronic anemia - improved s/p 2u pRBCs. continue IV PPI for recent EGD finding of duodenitis/gastritis; no active bleeding. no further intervention for hemolysis as per Heme/Onc # MATILDE/CKD3 - lisinopril held, SCr close to baseline # hyperNa, mild - resolved # chronic diastolic CHF - not hypervolemic # stage 2 coccygeal ulcer - bedside debridement per Gen Surg, continue foam dressing, frequent position changes, high-protein diet # CLL - outpt Oncology f/u # dementia # anxiety - medications held [was on donepezil, memantine, clonazepam] # VTE ppx - SCDs, no heparinoids given anemia + FOBT+ # dispo - STR In my clinical judgment, the patient requires continued hospitalization for the following reasons: IV antibiotics for bacteremia, awaiting clearance Quality Stroke Does the patient have a stroke diagnosis?: No VTE Prior VTE?: No VTE Risk Level:: Medical - moderate - high VTE Device Contraindication: N/A - Device Ordered VTE Drug Contraindication: Treatment Not Tolerated
[2021-05-12 10:55] VITALS: BP 151/65; PULSE 65; RESP 18; TEMP 37.1; O2SAT 95
[2021-05-12 14:50] LABS: Vancomycin Trough 11.1 mcg/mL (10.0-20.0)
[2021-05-12 15:43] VITALS: BP 163/70; PULSE 78; RESP 17; TEMP 37.1; O2SAT 94
[2021-05-12] MEDS: lisinopriL 5 MG TABLET PO (15:43)
[2021-05-12 19:41] VITALS: BP 139/63; PULSE 80; RESP 17; TEMP 36.9; O2SAT 94
[2021-05-12 23:36] VITALS: BP 152/66; PULSE 70; RESP 16; TEMP 36.8; O2SAT 94
[2021-05-13 03:10] VITALS: BP 166/71; PULSE 72; RESP 16; TEMP 37.3; O2SAT 95
[2021-05-13] MEDS: Linezolid/D5W 600 MG/300 ML PIGGYBACK 300 MG IV ×2 (03:25→15:27)
[2021-05-13 06:00] VITALS: BMI 20.9
[2021-05-13] MEDS: Pantoprazole Sodium 40 MG/10 ML VIAL IVPUSH (06:06)
[2021-05-13 06:21] LABS: MANUAL DIFF FLAG NO; Venous Blood Gas Refer to POC result
[2021-05-13 06:22] LABS: VBG Base Excess 4.2 mmol/L; VBG HCO3 27 mmol/L (22-26); VBG pCO2 33 mmHg; VBG pH 7.51 (7.32-7.43); VBG pO2 58 mmHg
[2021-05-13 06:30] LABS: Basophils Percent Auto 0.3 % (0-2); Eosinophils Absolute Auto 0.3 X10*3/uL (0.0-0.4); Eosinophils Percent Auto 3.2 % (0-4); Hematocrit 27.6 % (37.0-47.0); Hemoglobin 8.9 g/dl (12.0-16.0); Lymphocytes Percent Auto 9.9 % (20-40); Mean Corpuscular HGB Conc 32.2 g/dl (31.0-35.0); Mean Corpuscular Hemoglobin 29.7 pg (27.0-33.0); Monocytes Percent Auto 9.9 % (2-11); Neutrophils Percent Auto 75.7 % (45-73); Platelet Count 200 X10*3/uL (160-400); White Blood Count 10.5 X10*3/uL (4.8-10.8)
[2021-05-13 06:44] LABS: B Type Natriuretic Peptide 281 pg/mL (<100)
[2021-05-13 06:55] LABS: Alanine Aminotransferase 96 U/L (0-31); Albumin Level 2.7 g/dL (3.5-5.0); Alkaline Phosphatase 297 U/L (39-117); Anion Gap 16 (12-20); Aspartate Amino Transferase 118 U/L (5-31); Bilirubin Direct 0.2 mg/dL (0.0-0.5); Bilirubin Total 0.4 mg/dL (0.0-1.0); Blood Urea Nitrogen 42 mg/dL (9-16); Calcium 8.4 mg/dL (8.4-10.2); Carbon Dioxide 23 mmol/L (22-29); Chloride 104 mmol/L (96-108); Creatinine Clr Calc Pharmacy 25.1; Estimated Glomerular Filt Rate 29; Glucose Random 112 mg/dL (60-115); Magnesium 1.9 mg/dL (1.6-2.6); Phosphorus 3.9 mg/dL (2.7-4.5); Potassium 3.6 mmol/L (3.3-5.1); Sodium 139 mmol/L (135-145); Total Protein 4.8 g/dL (6.5-8.0)
[2021-05-13 07:44] VITALS: BP 172/71; PULSE 74; RESP 18; TEMP 36.5; O2SAT 94
[2021-05-13] MEDS: lisinopriL 5 MG TABLET PO (08:41)
[2021-05-13] MEDS: amLODIPine Besylate 10 MG TABLET PO (08:41)
[2021-05-13] MEDS: hydrALAZINE HCl 50 MG TABLET 100 MG PO ×3 (08:41→20:47)
--- NOTE | 2021-05-13 10:48 | P.PNIM_ITS ---
Subjective Subjective Date of Service: 05/13/21 Interval History: No dizziness No fever No cough No dyspnea Review of Systems Review of Systems: Yes all other systems are reviewed and are negative Physical Exam Vital Signs: Vital Signs: Last Vital Signs Temp 97.7 F 05/13/21 07:44 Pulse 74 05/13/21 07:44 Resp 18 05/13/21 07:44 BP 172/71 H 05/13/21 07:44 Pulse Ox 94 05/13/21 07:44 BMI result Body Mass Index 20.9 Gen: in no acute distress HEENT: sclera anicteric, moist mucus membranes, resolving bruising superior and lateral to L orbit Neck: supple Lungs: soft end-exp rhonchus R base Heart: RRR, no murmurs Abd: soft, non-tender, non-distended Ext: no edema Skin: warm/well-perfused, bruising Neuro: alert and oriented x3 Psych: appropriate affect Objective Data Active Medications Amlodipine Besylate (Amlodipine Besylate 10 Mg Tablet) 10 mg PO DAILY [facility]; Prot ocol Last Admin: 05/13/21 08:41 Dose: 10 mg Documented by: FEDE Hydralazine HCl (Hydralazine Hcl 50 Mg Tablet) 100 mg PO TID [facility]; Protocol Last Admin: 05/13/21 08:41 Dose: 100 mg Documented by: FEDE Linezolid (Zyvox/D5w) 600 mg in 300 mls @ 300 mls/hr IV Q12H [facility] Stop: 05/25/21 15:59 Last Infusion: 05/13/21 05:37 Dose: 0 mls/hr Documented by: MYRANDA Lisinopril (Lisinopril 5 Mg Tablet) 5 mg PO DAILY [facility]; Protocol Last Admin: 05/13/21 08:41 Dose: 5 mg Documented by: FEDE Omeprazole (Omeprazole 20 Mg Capsule.) 20 mg PO DAILY@0630 [facility] Pharmacy Consult (Consult Rx Vancomycin Dosing) 1 each MISCELLANE DAILY [facility] Labs CBC & Chem 7: 05/13/21 06:10 05/13/21 06:10 Labs: Laboratory Results - last 24 hr 05/12/21 05/13/21 05/13/21 14:13 06:10 06:10 MCV 92.0 MCH 29.7 MCHC 32.2 RDW 14.0 Plt Count 200 MPV 11.0 Immature Gran % (Auto) 1.0 H Neut % (Auto) 75.7 H Lymph % (Auto) 9.9 L [place] % (Auto) 9.9 Eos % (Auto) 3.2 Baso % (Auto) 0.3 Lymph # (Auto) 1.0 L [place] # (Auto) 1.0 Eos # (Auto) 0.3 Baso # (Auto) 0.0 Abs Immat Gran (auto) 0.10 H Absolute Neuts (auto) 8.0 Absolute Nucleated RBC 0.000 Nucleated RBC % (auto) 0.0 VBG pH VBG pCO2 VBG pO2 VBG HCO3 VBG O2 Saturation VBG Base Excess Anion Gap 16 Estim Creat Clear Calc 25.1 Estimated GFR 29 Random Glucose 112 Calcium 8.4 Phosphorus 3.9 Magnesium 1.9 Total Bilirubin 0.4 Direct Bilirubin 0.2 AST 118 H ALT 96 H Alkaline Phosphatase 297 H D Total Creatine Kinase B-Natriuretic Peptide Total Protein 4.8 L Albumin 2.7 L Vancomycin Trough 11.1 05/13/21 05/13/21 05/13/21 06:10 06:10 06:15 MCV MCH MCHC RDW Plt Count MPV Immature Gran % (Auto) Neut % (Auto) Lymph % (Auto) [place] % (Auto) Eos % (Auto) Baso % (Auto) Lymph # (Auto) [place] # (Auto) Eos # (Auto) Baso # (Auto) Abs Immat Gran (auto) Absolute Neuts (auto) Absolute Nucleated RBC Nucleated RBC % (auto) VBG pH 7.51 H VBG pCO2 33 VBG pO2 58 VBG HCO3 27 H VBG O2 Saturation 87.0 VBG Base Excess 4.2 Anion Gap Estim Creat Clear Calc Estimated GFR Random Glucose Calcium Phosphorus Magnesium Total Bilirubin Direct Bilirubin AST ALT Alkaline Phosphatase Total Creatine Kinase 98 D B-Natriuretic Peptide 281 H Total Protein Albumin Vancomycin Trough Microbiology Microbiology Results: Microbiology 05/11/21 05:52 Blood Culture - Preliminary Blood - Venous No growth after 48 hours. 05/11/21 05:52 Blood Culture - Preliminary Blood - Venous No growth after 48 hours. 05/07/21 14:10 Blood Culture - Final Blood - Venous No growth after 5 days. Assessment and Plan (1) Bradycardia: Status: Acute (2) Paroxysmal atrial fibrillation: Status: Acute (3) Anemia: Status: Acute (4) Hypothermia: Status: Acute (5) Acute hypotension: Status: Acute (6) Chronic kidney failure: Status: Acute (7) MATILDE (acute kidney injury): Status: Resolved (8) Dementia: [facility] hospital d#7 81yo F with CLL, chronic anemia, CKD3, chronic diastolic HF, HTN, dementia likely Alzheimer's [place] [facility] [place] with question of sycnope; extensive workup with normal EEG, CT head with no acute process; worked up for acute/chronic anemia with EGD that showed erosive duodenitis + gastritis, requiring 2u pRBCs; also had mild hemolysis, encephalopathy, and bradycardia causing carvedilol to be held brought in [place] [facility] due to being found lethargic + bradycardic by visiting nurses EMS found her hypotensive and gave her NS + atropine found to be hypothermic in ED with Bower J waves placed on warmer + norepinephrine gtt and admitted to ICU transfused 2u pRBCs for Hb 7.7 BP/HR/temp improved and stepped down to hospitalist service 05/08 1 of 2 BCx from 05/07/21 growing VRE # VRE bacteremia - linezolid d#3, ID following, discuss duration/PICC line, repeat BCx from 05/11 cleared # bradycardia due to SSS # pAF - presented with SB in 35s, converted to AF with controlled rate in 60s-70s then NSR - d/c'ed carvedilol + donepezil due to bradycardia - Cardiology consulted; due to anemia + dementia, not a good candidate for anticoagulation at this time # hypotension - due to hypovolemia + excess antihypertensives, resolved and now hypertensive # HTN - continue amlodipine 10 mg/d, increased hydralazine 50->100 mg tid; d/alfred carvedilol due to bradycardia and lisinopril due to MATILDE; resumed lisinopril 5 mg 05/12; monitor SCr # acute/chronic anemia - improved s/p 2u pRBCs. recent EGD finding of duodenitis/gastritis; no active bleeding. no further intervention for hemolysis as per Heme/Onc. change IV to PO PPI # MATILDE/CKD3 - lisinopril restarted at 5 mg/d; monitor SCr # hypoMg - repleted, resolved # hyperNa, mild - resolved # chronic diastolic CHF - not hypervolemic # stage 2 coccygeal ulcer - bedside debridement per Gen Surg, continue foam dressing, frequent position changes, high-protein diet # CLL - outpt Oncology f/u # dementia # anxiety - medications held [was on donepezil, memantine, clonazepam] # VTE ppx - SCDs, no heparinoids given anemia + FOBT+ # dispo - STR In my clinical judgment, the patient requires continued hospitalization for the following reasons: IV antibiotics for bacteremia Quality Stroke Does the patient have a stroke diagnosis?: No VTE Prior VTE?: No VTE Risk Level:: Medical - moderate - high VTE Device Contraindication: N/A - Device Ordered VTE Drug Contraindication: Treatment Not Tolerated
[2021-05-13 11:15] VITALS: BP 154/69; PULSE 69; RESP 18; TEMP 37.2; O2SAT 97
[2021-05-13 15:24] VITALS: BP 158/70; PULSE 77; RESP 18; TEMP 36.9; O2SAT 96
[2021-05-13 19:43] VITALS: BP 155/69; PULSE 77; RESP 18; TEMP 36.4; O2SAT 96
[2021-05-13 23:22] VITALS: BP 160/73; PULSE 78; RESP 18; TEMP 36.4; O2SAT 95
[2021-05-14] MEDS: Linezolid/D5W 600 MG/300 ML PIGGYBACK 300 MG IV ×2 (03:31→15:58)
[2021-05-14 03:45] VITALS: BP 169/72; PULSE 78; RESP 17; TEMP 36.3; O2SAT 94
[2021-05-14] MEDS: Omeprazole 20 MG CAPSULE.DR PO (05:32)
[2021-05-14 05:45] LABS: MANUAL DIFF FLAG NO
[2021-05-14 05:51] LABS: Basophils Absolute Auto 0.1 X10*3/uL (0.0-0.2); Basophils Percent Auto 0.4 % (0-2); Eosinophils Absolute Auto 0.4 X10*3/uL (0.0-0.4); Hematocrit 27.8 % (37.0-47.0); Hemoglobin 8.8 g/dl (12.0-16.0); Imm Gran Abs Auto 0.09 X10*3/uL (0.00-0.03); Imm Gran Pct Auto 0.8 % (0.0-0.4); Lymphocytes Percent Auto 8.6 % (20-40); Mean Corpuscular HGB Conc 31.7 g/dl (31.0-35.0); Mean Corpuscular Volume 91.7 fL (80.0-98.0); Mean Platelet Volume 10.5 fL (9.4-12.3); Monocytes Percent Auto 8.2 % (2-11); Neutrophils Absolute Auto 9.3 x10*3/uL (2.0-8.3); Platelet Count 232 X10*3/uL (160-400); Red Blood Count 3.03 X10*6/uL (4.20-5.50); Red Cell Distribution Width 13.9 % (11.0-16.0); White Blood Count 11.8 X10*3/uL (4.8-10.8)
[2021-05-14 05:52] LABS: VBG Base Excess 2.1 mmol/L; VBG HCO3 25 mmol/L (22-26); VBG pCO2 36 mmHg; VBG pH 7.45 (7.32-7.43); VBG pO2 39 mmHg
[2021-05-14 05:57] LABS: Venous Blood Gas Refer to POC result
[2021-05-14 06:00] VITALS: BMI 22.3
[2021-05-14 06:11] LABS: B Type Natriuretic Peptide 330 pg/mL (<100)
[2021-05-14 06:16] LABS: Alanine Aminotransferase 77 U/L (0-31); Albumin Level 2.7 g/dL (3.5-5.0); Alkaline Phosphatase 272 U/L (39-117); Anion Gap 14 (12-20); Aspartate Amino Transferase 60 U/L (5-31); Bilirubin Direct 0.2 mg/dL (0.0-0.5); Bilirubin Total 0.4 mg/dL (0.0-1.0); Blood Urea Nitrogen 47 mg/dL (9-16); Calcium 8.6 mg/dL (8.4-10.2); Carbon Dioxide 25 mmol/L (22-29); Chloride 103 mmol/L (96-108); Creatinine Clr Calc Pharmacy 24.9; Estimated Glomerular Filt Rate 28; Glucose Random 121 mg/dL (60-115); Magnesium 1.9 mg/dL (1.6-2.6); Potassium 3.7 mmol/L (3.3-5.1); Sodium 138 mmol/L (135-145); Total Protein 4.9 g/dL (6.5-8.0)
[2021-05-14 07:09] VITALS: BP 166/67; PULSE 70; RESP 18; TEMP 37.3; O2SAT 94
[2021-05-14] MEDS: lisinopriL 5 MG TABLET PO (07:56)
[2021-05-14] MEDS: hydrALAZINE HCl 50 MG TABLET 100 MG PO ×3 (07:56→19:54)
[2021-05-14] MEDS: amLODIPine Besylate 10 MG TABLET PO (07:57)
[2021-05-14 11:09] VITALS: BP 164/88; PULSE 75; RESP 20; TEMP 36.7; O2SAT 97
--- NOTE | 2021-05-14 11:52 | MHC.CM.PN ---
Addendum entered by Kaelyn Anguiano RN 05/14/21 14:29: PER HOSPITALIST PT WILL NOW D/C W/ORAL LINEZOLID, NO IV ABX NECESSARY, CM MET W/PT AND AT BEDSIDE AND PT REPORTS SHE HAS HEARD GOOD THINGS ABOUT [facility] AND WOULD LIKE TO GO THERE FOR STR, [facility] UPDATED VIA [facility], THEY ARE UNABLE TO TAKE PT TODAY AND CM WILL FOLLOW-UP IN AM. Original Note: EMR REVIEWED, PER HOSPITALIST ANTIC PT WILL BE READY FOR D/C TOMORROW AFTER PICC INE PLACED AND FINAL IV ABX DETERMINED BY ID, SNF REFERRAL UPDATED AND CM WILL CONT TO FOLLOW D/C NEEDS.
--- NOTE | 2021-05-14 13:34 | MHC.CLN ---
F/U DIET=REGULAR. SUPPLEMENT ENSURE CLEAR BID TO PROVIDE 480 KCAL, 16 G PROTEIN. AT VISIT, PATIENT HAD CONSUMED ALMOST 100% OF SUPPLEMENT. VARIABLE INTAKE AT MEALS NOTED. INCREASED NUTRITION NEEDS DUE TO PRESSURE INJURIES. STAGE II TO RIGHT BUTTOCK; STAGE III TO COCCYX. CONTINUE TO FOLLOW INTAKE OF MEALS AND SUPPLEMENT.
--- NOTE | 2021-05-14 14:57 | HO.PM.IMPN ---
Subjective Subjective Date of Service: 05/14/21 Interval History: Feeling well. No complaints. Review of Systems Review of Systems: Yes all other systems are reviewed and are negative Physical Exam Vital Signs: Vital Signs: Last Vital Signs Temp 98.1 F 05/14/21 11:09 Pulse 75 05/14/21 11:09 Resp 20 05/14/21 11:09 BP 164/88 H 05/14/21 11:09 Pulse Ox 97 05/14/21 11:09 BMI result Body Mass Index 22.3 Gen: in no acute distress HEENT: sclera anicteric, moist mucus membranes, resolving bruising superior and lateral to L orbit Neck: supple Lungs: clear bilaterally Heart: RRR, no murmurs Abd: soft, non-tender, non-distended Ext: no edema Skin: warm/well-perfused, bruising Neuro: alert and oriented x3 Psych: appropriate affect Objective Data Active Medications Amlodipine Besylate (Amlodipine Besylate 10 Mg Tablet) 10 mg PO DAILY [facility]; Protocol Last Admin: 05/14/21 07:57 Dose: 10 mg Documented by: MOISÉS Hydralazine HCl (Hydralazine Hcl 50 Mg Tablet) 100 mg PO TID [facility]; Protocol Last Admin: 05/14/21 07:56 Dose: 100 mg Documented by: MOISÉS Linezolid (Zyvox/D5w) 600 mg in 300 mls @ 300 mls/hr IV Q12H [facility] Stop: 05/25/21 15:59 Last Infusion: 05/14/21 05:34 Dose: 0 mls/hr Documented by: MYRANDA Lisinopril (Lisinopril 5 Mg Tablet) 5 mg PO DAILY [facility]; Protocol Last Admin: 05/14/21 07:56 Dose: 5 mg Documented by: MOISÉS Omeprazole (Omeprazole 20 Mg Capsule.) 20 mg PO DAILY@0630 [facility] Last Admin: 05/14/21 05:32 Dose: 20 mg Documented by: MYRANDA Pharmacy Consult (Consult Rx Vancomycin Dosing) 1 each MISCELLANE DAILY [facility] Labs CBC & Chem 7: 05/14/21 05:38 05/14/21 05:38 Labs: Laboratory Results - last 24 hr 05/14/21 05/14/21 05/14/21 05:38 05:38 05:38 MCV 91.7 MCH 29.0 MCHC 31.7 RDW 13.9 Plt Count 232 MPV 10.5 Immature Gran % (Auto) 0.8 H Neut % (Auto) 79.0 H Lymph % (Auto) 8.6 L [place] % (Auto) 8.2 Eos % (Auto) 3.0 Baso % (Auto) 0.4 Lymph # (Auto) 1.0 L [place] # (Auto) 1.0 Eos # (Auto) 0.4 Baso # (Auto) 0.1 Abs Immat Gran (auto) 0.09 H Absolute Neuts (auto) 9.3 H Absolute Nucleated RBC 0.000 Nucleated RBC % (auto) 0.0 VBG pH VBG pCO2 VBG pO2 VBG HCO3 VBG O2 Saturation VBG Base Excess Anion Gap 14 Estim Creat Clear Calc 24.9 Estimated GFR 28 Random Glucose 121 H Calcium 8.6 Phosphorus 4.0 Magnesium 1.9 Total Bilirubin 0.4 Direct Bilirubin 0.2 AST 60 H ALT 77 H Alkaline Phosphatase 272 H B-Natriuretic Peptide 330 H Total Protein 4.9 L Albumin 2.7 L 05/14/21 05:42 MCV MCH MCHC RDW Plt Count MPV Immature Gran % (Auto) Neut % (Auto) Lymph % (Auto) [place] % (Auto) Eos % (Auto) Baso % (Auto) Lymph # (Auto) [place] # (Auto) Eos # (Auto) Baso # (Auto) Abs Immat Gran (auto) Absolute Neuts (auto) Absolute Nucleated RBC Nucleated RBC % (auto) VBG pH 7.45 H VBG pCO2 36 VBG pO2 39 VBG HCO3 25 VBG O2 Saturation 61.0 VBG Base Excess 2.1 Anion Gap Estim Creat Clear Calc Estimated GFR Random Glucose Calcium Phosphorus Magnesium Total Bilirubin Direct Bilirubin AST ALT Alkaline Phosphatase B-Natriuretic Peptide Total Protein Albumin Assessment and Plan (1) Bradycardia: Status: Acute (2) Paroxysmal atrial fibrillation: Status: Acute (3) Anemia: Status: Acute (4) Hypothermia: Status: Acute (5) Acute hypotension: Status: Acute (6) Chronic kidney failure: Status: Acute (7) MATILDE (acute kidney injury): Status: Resolved (8) Dementia: [facility] d#8 81yo F with CLL, chronic anemia, CKD3, chronic diastolic HF, HTN, dementia likely Alzheimer's [place] [facility] [place] with question of sycnope; extensive workup with normal EEG, CT head with no acute process; worked up for acute/chronic anemia with EGD that showed erosive duodenitis + gastritis, requiring 2u pRBCs; also had mild hemolysis, encephalopathy, and bradycardia causing carvedilol to be held brought [place] [facility] [place] due to being found lethargic + bradycardic by visiting nurses EMS found her hypotensive and gave her NS + atropine found to be hypothermic in ED with Bower J waves placed on warmer + norepinephrine gtt and admitted to ICU transfused 2u pRBCs for Hb 7.7 BP/HR/temp improved and stepped down to hospitalist service 05/08 1 of 2 BCx from 05/07/21 growing VRE # VRE bacteremia - repeat BCx from 05/11 cleared - linezolid IV d#4. per ID d/c on PO linezolid for total of 3 wk. so no PICC needed # bradycardia due to SSS # pAF - presented with SB in 35s, converted to AF with controlled rate in 60s-70s then NSR - d/c'ed carvedilol + donepezil due to bradycardia - Cardiology consulted; due to anemia + dementia, not a good candidate for anticoagulation at this time # hypotension - due to hypovolemia + excess antihypertensives, resolved and now hypertensive # HTN - continue amlodipine 10 mg/d, increased hydralazine 50->100 mg tid; d/alfred carvedilol due to bradycardia and lisinopril due to MATILDE; resumed lisinopril 5 mg 05/12; monitor SCr # acute/chronic anemia - improved s/p 2u pRBCs. recent EGD finding of duodenitis/gastritis; no active bleeding. no further intervention for hemolysis as per Heme/Onc. changed PPI from IV to PO # MATILDE/CKD3 - lisinopril restarted at 5 mg/d; monitor SCr # hypoMg - repleted, resolved # hyperNa, mild - resolved # chronic diastolic CHF - not hypervolemic # stage 2 coccygeal ulcer - wound care. per Gen Surg no debirdement required- no necrosis and no heaped-up areas. frequent position changes, high-protein diet # CLL - outpt Oncology f/u # dementia # anxiety - medications held [was on donepezil, memantine, clonazepam] # VTE ppx - SCDs, no heparinoids given anemia + FOBT+ # dispo - STR. No bed available today; possibly tomorrow. Quality Stroke Does the patient have a stroke diagnosis?: No VTE Prior VTE?: No VTE Risk Level:: Medical - moderate - high VTE Device Contraindication: N/A - Device Ordered VTE Drug Contraindication: Treatment Not Tolerated
[2021-05-14 15:22] VITALS: BP 143/68; PULSE 87; RESP 18; TEMP 37.1; O2SAT 98
[2021-05-14 19:10] VITALS: BP 159/72; PULSE 86; RESP 18; TEMP 37; O2SAT 96
[2021-05-14 23:25] VITALS: BP 154/65; PULSE 90; RESP 18; TEMP 36.2; O2SAT 96
[2021-05-15 04:00] VITALS: BP 148/61; PULSE 76; RESP 18; TEMP 36.3; O2SAT 95
[2021-05-15] MEDS: Linezolid/D5W 600 MG/300 ML PIGGYBACK 300 MG IV (04:50)
[2021-05-15] MEDS: Omeprazole 20 MG CAPSULE.DR PO (05:46)
[2021-05-15 06:00] VITALS: BMI 16.5
[2021-05-15 06:02] LABS: Anion Gap 14 (12-20); Blood Urea Nitrogen 48 mg/dL (9-16); Calcium 8.3 mg/dL (8.4-10.2); Carbon Dioxide 24 mmol/L (22-29); Chloride 103 mmol/L (96-108); Estimated Glomerular Filt Rate 28; Glucose Random 108 mg/dL (60-115); Potassium 3.7 mmol/L (3.3-5.1); Sodium 137 mmol/L (135-145)
[2021-05-15] MEDS: hydrALAZINE HCl 50 MG TABLET 100 MG PO ×2 (07:52→14:45)
[2021-05-15] MEDS: lisinopriL 5 MG TABLET PO (07:52)
[2021-05-15] MEDS: amLODIPine Besylate 10 MG TABLET PO (07:52)
[2021-05-15 07:57] VITALS: BP 148/61; PULSE 76; O2SAT 95
[2021-05-15 08:00] VITALS: BP 154/55; PULSE 65; RESP 17; TEMP 36.3; O2SAT 94
--- NOTE | 2021-05-15 08:31 | PM.DS ---
DS: Providers Provider Date of Service: 05/15/21 Date of admission: 05/07/21 17:25 Date of discharge: 05/15/21 Primary care physician: Walter Braun MD Consults: 05/09/21 12:43 Consult to General Surgery Routine Consulting Provider: Ritchie Lofton Reason for consultation: decub ulcer Has provider been notified: No 05/09/21 12:51 Consult to Cardiology Routine Consulting Provider: Abimael Montana Reason for consultation: PAF/need for asa Has provider been notified: No 05/10/21 11:29 Consult to Infectious Diseases Routine Consulting Provider: Elsie Solis Reason for consultation: Enterococcus faecium bacteremia DS: Diagnosis Discharge Diagnosis (1) Bradycardia: Status: Acute (2) Paroxysmal atrial fibrillation: Status: Acute (3) Anemia: Status: Acute (4) Hypothermia: Status: Acute (5) Acute hypotension: Status: Acute (6) Chronic kidney failure: Status: Acute (7) MATILDE (acute kidney injury): Status: Resolved (8) Dementia: DS: Summary Hospital Course Hospital Course: 81yoF presents to ER with profound hypothermia and bradycardia with a heart rate in the 30s, sinus? bradycardia, with hypotension, treated initially the field with normal saline bolus as well as atropine 0.5 mg IV.? Patient was given additional atropine here as her heart rate did trend back down into the 40s in her blood pressure trended back down to the 90s.? Levophed was started and she was given additional normal saline bolus of 500 mL.? The patient had been discharged 4 days ago after admission for bradycardia and hypothermia and acute on chronic anemia, felt to be due to blood loss but also possibly? due to hemolysis.? The patient has a hematocrit of 25 today which is around the level she was at when she was discharged.? ? The patient's renal function has worsened since her admission.? Patient has a normal TSH.? Sepsis is a consideration however the patient has a negative chest x-ray and negative urinalysis, was initially alert and interactive, did not appear septic clinically.? Patient was treated with warm IV fluids as well as a Donal Hugger and her heart rate and temperature have improved, though she has also been on low-dose Levophed.? A right-sided IJ was placed since she is on a pressor agent.Admitted to ICU; bradycardia improved with warming/fluids but progressed to AFib w/RVR. Dementi meds were D/Cd as thought could exacebate bradycardia. Seen by Cardiology...Coreg D/Cd. BPs controlled with amlodipine/hydralazine Seen by PT who recommends SNF....medically acceptable for same.. Time Spent with Patient Time attestation: Total time spent providing and/or coordinating discharge services: Discharge coordination time: Greater than 30 minutes Quality: Stroke Does the patient have a stroke diagnosis?: No Physical Exam Vital Signs: Vital Signs: Last Vital Signs Temp 97.4 F 05/15/21 08:00 Pulse 65 05/15/21 08:00 Resp 17 05/15/21 08:00 BP 154/55 H 05/15/21 08:00 Pulse Ox 94 05/15/21 08:00 BMI result Body Mass Index 16.5 Const: Other: General? resting comfortably in no acute distress.? HEENT bruise left eye, and left scalp Neck supple no JVD. CVS?regular rate rhythm, Respiratory lungs clear to auscultation, no respiratory distress, no wheeze, no rhonchi, no rales Gastrointestinal?abdomen soft, nontender, bowel sounds audible Extremities no pitting edema. Neuro nonfocal, moving all 4 extremity speech clear. Skin bilateral lower extremity bruising, abrasion to both knees Musculoskeletal no deformity ? DS: Data Data Completed and Pending Completed studies during hospitalization [Text1]: Procedures Excision of Stomach, Pylorus, Via Natural or Artificial Opening Endoscopic, Diagnostic (04/29/21) Transfusion of Nonautologous Red Blood Cells into Peripheral Vein, Percutaneous Approach (04/29/21) Labs on day of discharge: Laboratory Results - last 24 hr 05/15/21 05:29 Sodium 137 Potassium 3.7 Chloride 103 Carbon Dioxide 24 Anion Gap 14 BUN 48 H Creatinine 1.76 H Estim Creat Clear Calc 19.0 Estimated GFR 28 Random Glucose 108 Calcium 8.3 L Preliminary micro results at discharge 05/11/21 05:52 Blood Culture - Preliminary Blood - Venous No growth after 48 hours. 05/11/21 05:52 Blood Culture - Preliminary Blood - Venous No growth after 48 hours. Discharge Plan Discharge Patient Disposition: Xfer Inpatient Rehab Fac Discharge Diagnosis: Paroxysmal AFib Referrals: Walter Braun MD [Primary Care Provider] - 1 Week Discharge Medications: New omeprazole 20 mg Capsule,Delayed Release(Dr/Ec) 20 mg PO DAILY@0630 Qty: 30 0RF linezolid 600 mg tablet 600 mg PO Q12H 21 Days Qty: 42 0RF Continued lisinopril 5 mg tablet 1 tab PO DAILY 0RF calcitonin (salmon) 200 unit/actuation spray,non-aerosol 1 spray intranasal DAILY 0RF ferrous sulfate 325 mg (65 mg iron) Tablet 325 mg PO DAILY 0RF Probiotic 10 billion cell Capsule 10,000 mmu cells PO DAILY 0RF Repatha SureClick 140 mg/mL Pen Injector 140 mg SUBCUT Q2W 0RF amlodipine 10 mg tablet 10 mg PO BEDTIME 0RF Protocol: Hold for SBP< HOLD for SBP < : 90 hydrochlorothiazide 12.5 mg capsule 12.5 mg PO DAILY 0RF hydralazine 100 mg tablet 100 mg PO TID Qty: 270 4RF clonazepam 0.5 mg tablet 1 mg PO BEDTIME 0RF donepezil 10 mg tablet 10 mg PO BEDTIME 0RF aspirin 81 mg tablet,delayed release (DR/EC) 81 mg PO BEDTIME 0RF Hold Instructions: Resume on 05/07/21. cholecalciferol (vitamin D3) 250 mcg (10,000 unit) capsule 250 mcg PO DAILY 0RF ascorbic acid (vitamin C) 1,000 mg tablet 1,000 mg PO DAILY 0RF Centrum Silver 0.4-300-250 mg-mcg-mcg tablet 1 tab PO DAILY 0RF Discontinued memantine 10 mg tablet 10 mg PO BEDTIME 0RF carvedilol [Coreg] 6.25 mg tablet 6.25 mg PO BID Qty: 180 3RF Rx Instructions: must administer with a meal/food Discharge Orders: Discharge Order (Routine); Ordered 05/15/21 Ordered By: Jerardo Dewitt Diet: advance to usual diet Activity on Discharge: As tolerated Stand Alone Forms: Patient Portal Discharge page Care Plan Goals: continue linezolid 600 b.i.d. for 21 days Health Concerns: complete course of Linezolid Follow-up p.r.n. as per facility Plan of Treatment: as per receiving facility Assessment: see discharge summary
--- NOTE | 2021-05-15 11:41 | MHC.CM.PN ---
IMM 05/15/21, PT WILL D/C TO [facility] AT 4PM FOR STR VIA [facility] FOR BLS TRANSPORT.
[2021-05-15 12:00] VITALS: BP 135/65; PULSE 56; RESP 15; TEMP 36.4; O2SAT 95
[2021-05-15 12:19] LABS: Influenza A PCR NEGATIVE (Negative); Influenza B PCR NEGATIVE (Negative); Resp Syncy Virus RNA Qual PCR NEGATIVE (Negative); SARS COV2 PCR INHOUSE NEGATIVE (Negative)
--- NOTE | 2021-05-28 11:27 | MHC.CM.PN ---
Addendum entered by Samira Patterson 05/28/21 11:35: CM CALLED PTS , MINDI [phone] AND PROVIDED THIS INFORMATION Original Note: POST DC NOTE: CM RECEIVED A CALL FROM PTS , MINDI, WHO REPORTS HE IS ON THE PTS PORTAL AND SEES AN APPT WITH THE [facility] FOR 06/04/21 BUT HE DOES NOT KNOW WHAT THIS IS OR WHY. HE ALSO REPORTS BEING CONCERNED THAT THE [facility] DOES NOT KNOW SHE IS IN STR AND WILL NOT MAKE HER APPTS. TUCKER CALLED THE [facility] AND SPOKE TO RICHMOND WHO EXPLAINED THE APPT HAD BEEN MADE BY PTS PCP OFFICE TO FOLLOW UP ON THE OSTEOMYELITIS DIAGNOSIS. THE APPT IS ON 06/04/21 AT 1500 HOURS IN [facility]. TUCKER ALSO CALLED THE [facility] AND INFORMED WILDER THAT THE PT WAS AT [facility] AND WOULD SCHEDULE WITH THEM ONCE SHE RETURNS HOME.
== END 2021-05-15 16:23 | DRG 315 ==
LOC: HO.ED 17:05 → HO.EDOVER 17:37 → HO.ICU 17:43 → HO.S3 05-08 14:17
PROVIDERS: Family Medicine; Hospitalist; Physician Assistant; Admitting Provider Internal Medicine Cardiovascular Disease; Emergency Provider Emergency Medicine; PCP Family Medicine; Visit Provider Hospitalist
DX: I95.9 Hypotension, unspecified (principal); C91.10 Chronic lymphocytic leukemia of B-cell type not having achieved remission; I50.32 Chronic diastolic (congestive) heart failure; N17.9 Acute kidney failure, unspecified; F05 Delirium due to known physiological condition; R78.81 Bacteremia; Z16.21 Resistance to vancomycin; I49.5 Sick sinus syndrome; I48.0 Paroxysmal atrial fibrillation; R68.0 Hypothermia, not associated with low environmental temperature; L89.152 Pressure ulcer of sacral region, stage 2; Z20.822 Contact with and (suspected) exposure to COVID-19; N18.30 Chronic kidney disease, stage 3 unspecified; D63.1 Anemia in chronic kidney disease; I12.9 Hypertensive chronic kidney disease with stage 1 through stage 4 chronic kidney disease, or unspecified chronic kidney disease; E86.1 Hypovolemia; D50.0 Iron deficiency anemia secondary to blood loss (chronic); B95.2 Enterococcus as the cause of diseases classified elsewhere; G30.9 Alzheimer's disease, unspecified; F02.80 Dementia in other diseases classified elsewhere, unspecified severity, without behavioral disturbance, psychotic disturbance, mood disturbance, and anxiety; Z96.643 Presence of artificial hip joint, bilateral; Z87.891 Personal history of nicotine dependence; Z79.82 Long term (current) use of aspirin; Z79.899 Other long term (current) drug therapy
CPT/HCPCS: 0241U; 36415; 36430; 70450; 71045; 71250; 74176; 80048; 80053; 80076; 80202; 81001; 82272; 82533; 82550; 82803; 83605; 83735; 83880; 84100; 84443; 84484; 85025; 85027; 85610; 85730; 86850; 86900; 86901; 86920; 86921; 87040; 87071; 87077; 87186; 87205; 87635; 93005; 93308; 96365; 96366; 96375; 97110; 97116; 97162; 97166; 97530; 97535; 99284; 99285; C1758; J0461; J0696; J2020; J2185; J3370; J3475; P9016

== ENCOUNTER 2021-05-24 11:14 | Inpatient (IN) | payer MEDICARE, SELFPAY ==
[2021-05-24] VITALS (16 sets, daily range): BP systolic 132–194; BP diastolic 45–81; PULSE 69–84; RESP 14–18; TEMP 36.4–37.1; O2SAT 97–100; BMI 22.8
--- NOTE | ~2021-05-24 | XR_ITS ---
EXAMINATION: XR CHEST CLINICAL INFORMATION: Shortness of breath COMPARISON: May 07, 2021 and April 29, 2021 TECHNIQUE: AP portable view of the chest was obtained. FINDINGS: There is again noted to be increased interstitial markings at the lung bases with probable scarring at the left base. No definite new confluent parenchymal disease is appreciated. No pneumothorax or significant pleural effusion. Heart normal size. No evidence of pulmonary edema. XR/XR chest 1V IMPRESSION: Stable bibasilar interstitial disease.
--- NOTE | ~2021-05-24 | CT_ITS ---
EXAMINATION: CT ABDOMEN AND PELVIS WITHOUT CONTRAST CLINICAL INFORMATION: Pain around sacrum COMPARISON: May 07, 2021 TECHNIQUE: Multidetector volumetric imaging was performed from the superior aspect of the liver through the pubic symphysis. Sagittal and coronal reformatted images were obtained on the technologist's workstation. This CT examination was performed using dose optimization techniques as appropriate, variously including the following: *Automated exposure control *Adjustment of mA and/or kV according to patient size (this includes techniques or standardized protocols for targeted exams where dose is matched to indication/reason for exam; i.e. extremities or head) *Use of iterative reconstruction technique DLP: 547 mGy-cm FINDINGS: Artifact from metallic hardware in the lumbar spine and lateral hips limited evaluation due to streak artifact. LUNG BASES: The visualized lung bases are unremarkable. No pleural or pericardial effusion. LIVER, GALLBLADDER, AND BILIARY TREE: The liver is normal in size, shape, and attenuation. No focal hepatic lesion or biliary ductal dilatation is present. The previously noted periportal edema seen with IV contrast study cannot be well evaluated without IV contrast. The gallbladder is unremarkable with no evidence of radiopaque gallstones, gallbladder wall thickening, or obvious pericholecystic inflammatory changes. PANCREAS: No definite pancreatic mass or peripancreatic inflammatory changes seen. SPLEEN: Unremarkable. ADRENAL GLANDS: Unremarkable. KIDNEYS AND URETERS: There are bilateral renal cysts present. The largest on the right measures approximately 1.4 cm in diameter. The largest on the left is approximately 2 cm in diameter. There is a 4 mm hyperdense region within the upper pole of the right kidney likely representing a hyperdense cyst. There is bilateral perinephric stranding. No hydronephrosis evident. Visualized portions of the ureters appear unremarkable bilaterally. There appears be a 1 mm upper pole calculus and a 2 mm midpole calculus which are nonobstructive. Vascular calcifications also noted. BLADDER: Not evaluated due to streak artifact. GASTROINTESTINAL TRACT: No dilated loops of large or small bowel are evident. No free air or significant free fluid is appreciated. There is diverticulosis of the colon most significant within the sigmoid colon. There is question of some fat stranding about the sigmoid colon without definite abscess collection however due to streak artifact evaluation is significantly limited. There is a moderate colonic stool burden present. No evidence of acute appendicitis. ABDOMINAL WALL: No significant hernia is appreciated. There is atrophy of the left psoas muscle. There is again noted to be a left posterior decubitus ulcer with some tracking of subcutaneous air to the sacrum. There is a large amount streak artifact present significantly limiting evaluation and a possible small subcutaneous fluid collection with a few bubbles of gas is suspected about the left posterior soft tissues measuring approximately 2.7 cm in diameter.. There is an increased amount of fat streaking also noted posterior aspect of the sacrum and coccyx. LYMPH NODES: No lymphadenopathy appreciated. VASCULAR: There is prominent aortoiliac calcified plaque present. I cannot determine whether there is hemodynamically significant stenosis within the iliac vessels. No abdominal aortic aneurysm is seen. PELVIC VISCERA: Very limited evaluation. OSSEOUS STRUCTURES: Status post instrumentation with hardware placement L2-L4. Status post bilateral hip arthroplasty. There is severe multilevel degenerative disc disease seen. There appears to be a new coccyx fracture present. There is also some lucency with disruption of the cortex about the left side of the coccyx is difficult to tell whether this may be related to the fracture or actually related to an erosion with osteomyelitis. CT/CT abdomen pelvis wo con IMPRESSION: New nondisplaced coccyx fracture since study of May 07, 2021. Cortical break which may be related to the fracture or possible erosion with osteomyelitis about the coccyx present. Increase in subcutaneous fat stranding in the region of this ulcer and extending to the sacrum with some gas being present. There also appears to be possible development of a small abscess about the left posterior subcutaneous tissues. The evaluation is very limited due to streak artifact from the bilateral hip arthroplasties. Ultrasound may be of help in demonstrating possible abscess in this location. Diverticular disease with wall thickening and streaking within adjacent fat. No evidence of diverticular abscess. Probable periportal edema persists however without IV contrast this is difficult to evaluate. Bilateral renal cysts. Prominent atherosclerotic disease. . Fleischner guidelines were followed.
--- NOTE | 2021-05-24 12:15 | ECG_ITS ---
Test Reason : dyspnea Blood Pressure : / mmHG Vent. Rate : 080 BPM Atrial Rate : 080 BPM P-R Int : 168 ms QRS Dur : 074 ms QT Int : 390 ms P-R-T Axes : 019 041 058 degrees QTc Int : 449 ms Normal sinus rhythm Normal ECG When compared with ECG of 07-MAY-2021 13:35, AK interval has decreased Vent. rate has increased BY 40 BPM Referred By: Dot Huerta Electronically Signed By:JESUS PEDRO
--- NOTE | 2021-05-24 12:48 | ED_ITS ---
HPI - General Adult General Chief complaint: Recheck/Abnormal Lab/Rx Stated complaint: ABNORMAL LABS PER SNF Time Seen by Provider: 05/24/21 11:37 Source: patient, EMS and old records reviewed Mode of arrival: EMS Limitations: other (dementia) History of Present Illness HPI narrative: 81-year-old female who lives at [facility], presents for hemoglobin of 5.7 that [facility]. Patient is complaining of pain in her coccyx area, around a large pressure ulcer. Patient has a past medical history of anemia, chronic lymphocytic leukemia, coronary artery disease, peripheral artery disease, peripheral vascular disease, dementia, hypertension, hyperlipidemia, NSTEMI, pulmonary fibrosis, and VRE bacteremia Related Data Home Medications Medication Instructions Recorded Confirmed ascorbic acid (vitamin C) 1,000 mg 1,000 mg PO DAILY tab 03/09/20 05/24/21 tablet aspirin 81 mg tablet,delayed 81 mg PO DAILY 03/09/20 05/24/21 release cholecalciferol (vitamin D3) 250 250 mcg PO DAILY 03/09/20 05/24/21 mcg (10,000 unit) capsule donepezil 10 mg tablet 10 mg PO BEDTIME 03/09/20 05/24/21 emzixjbg-nao-pbnou acid 0.4 1 tab PO DAILY 03/09/20 05/24/21 mg-lycopene 300 mcg-lutein 250 mcg tablet (Centrum Silver) lisinopril 5 mg tablet 1 tab PO DAILY 01/02/21 05/24/21 Lactobacillus acidophilus 10 10,000 mmu cells PO DAILY 05/07/21 05/24/21 billion cell capsule (Probiotic) amlodipine 10 mg tablet 10 mg PO BEDTIME 05/07/21 05/24/21 calcitonin (salmon) 200 1 spray INTRANASAL DAILY 05/07/21 05/24/21 unit/actuation nasal spray evolocumab 140 mg/mL subcutaneous 140 mg SUBCUT Q2W 05/07/21 05/24/21 pen injector (Sheree Madrigal) ferrous sulfate 325 mg (65 mg 325 mg PO DAILY 05/07/21 05/24/21 iron) tablet collagenase clostridium histo. 250 1 appl TOPICAL BID 05/24/21 05/24/21 unit/gram topical ointment (Santyl) hydralazine 100 mg tablet 50 mg PO TID 05/24/21 05/24/21 tamsulosin 0.4 mg capsule 0.4 mg PO BEDTIME 05/24/21 05/24/21 Previous Rx's Medication Instructions Recorded clonazepam 0.5 mg tablet 1 mg PO BEDTIME #30 tab 05/15/21 linezolid 600 mg tablet 600 mg PO Q12H 21 Days #42 tab 05/15/21 omeprazole 20 mg capsule,delayed 20 mg PO DAILY@0630 #30 cap 05/15/21 release Allergies Allergy/AdvReac Type Severity Reaction Status Date / Time diazepam [DIAZEPAM] Allergy Severe RASH Verified 04/09/21 15:13 Fmuafow-NAY-DmH Reductase Allergy Severe Muscle Pain Verified 04/09/21 15:13 Inhibitor [[id number] REDUCTASE INHIBITOR] Review of Systems Constitutional: Constitutional: Denies body ache(s), Denies chills, Denies fatigue, Denies fever(s), Denies headache(s), Denies malaise and Denies weakness Eyes: Eyes: Denies diplopia ENT: Denies vertigo, Denies dizziness, Denies otalgia, Denies headache(s), Denies post nasal drip and Denies sore throat Cardiovascular: Cardiovascular: Denies chest pain, Denies syncope, Denies leg edema, Denies lightheadedness, Denies Loss of Consciousness, Denies palpitations and Reports dyspnea Respiratory: Respiratory: Denies chest congestion, Denies cough, Denies pain on inspiration and Reports dyspnea Gastrointestinal: Gastrointestinal: Denies abdominal pain, Denies hematochezia, Denies constipation, Denies diarrhea and Denies vomiting Genitourinary: Genitourinary: Reports no additional female genitourinary complaints, Denies hematuria, Denies dysuria, Denies pelvic pain, Denies urinary hesitancy and Denies urinary urgency Musculoskeletal: Musculoskeletal: Reports back pain Integumentary/Breasts: Skin/Breast: Reports wounds Neurologic: Denies Abnormal speech present, Denies confusion, Denies vertigo, Denies dizziness, Denies syncope, Denies headache(s) and Denies weakness Psychiatric: Psychiatric: Denies anxiety, Denies confusion and Denies depression Endocrine: Endocrine: Denies fatigue and Denies palpitations PMFSH Past Medical History Medical History Anemia CHF (congestive heart failure) CLL (chronic lymphocytic leukemia) Coronary artery calcification seen on CAT scan COVID-19 vaccine series completed Dementia Essential hypertension Hx of reduction of closed dislocation Hyperlipidemia NSTEMI (non-ST elevated myocardial infarction) Peripheral artery disease Peripheral vascular disease Pulmonary fibrosis Ulcerative colitis Vertigo VRE bacteremia Surgical History H/O carotid endarterectomy H/O colonoscopy History of hip replacement History of liver biopsy History of revision of total hip arthroplasty Hx of lumbar discectomy S/P popliteal-distal bypass Family History Family History Father No problems noted. Mother No problems noted. Social History Social History Household Members: Spouse Household Members Other:: Housing: House Are you a primary family day care provider to a significant other at home: No Unable to assess alcohol history related to: Unknown Alcohol intake: never Patient Tobacco Use Status: Never used Tobacco Tobacco use type: Cigarette Years Smoked: 62 e-Cigarette/Vaping Use: Currently Using Second Hand Smoke Exposure: No Use of substances other than those prescribed or required for medical reasons: No Advance Directives: Yes Advance Directives on File: Yes Advance Directives Date on File: 05/06/20 service: No Current occupational status: retired 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 Physical Exam ED Vital Signs: Vital Signs - 24 hr 05/24/21 11:38 05/24/21 12:49 05/24/21 15:08 Temperature 98.8 F 98.3 F Pulse Rate 82 78 75 Respiratory Rate 18 18 18 Blood Pressure 132/50 L 152/50 H 159/45 H Pulse Oximetry 99 97 99 05/24/21 16:19 05/24/21 16:35 05/24/21 16:54 Temperature 98.3 F 98.7 F 98.7 F Pulse Rate 75 79 73 Respiratory Rate 18 18 18 Blood Pressure 159/45 H 165/51 H 165/51 H Pulse Oximetry 05/24/21 17:50 Temperature 98 F Pulse Rate 69 Respiratory Rate 18 Blood Pressure 159/50 H Pulse Oximetry 100 BMI result Body Mass Index 22.8 Const General: alert and awake; No confusion Orientation/consciousness: oriented to person, oriented to place, No oriented to time and No confusion Limitations: ambulation with walker and other limitations (mild dementia) [facility] Head: Yes normal to inspection, Yes No palpable skull fracture present, Yes normocephalic and Yes atraumatic Ears: hearing grossly normal bilaterally General nose exam: Normal external nose present Face and sinus: Yes normal facial exam Mouth: Normal oral and palatal mucosa present Throat: Yes posterior oropharynx normal Eyes Conjunctivae: conjunctival abnormal bilateral pallor Pupils: Equal, round and reactive pupils present EOM: EOMs intact bilaterally Neck Neck: Yes no meningeal signs Resp Effort & Inspection: normal respiratory effort and able to speak in complete sentences Auscultation: clear to auscultation bilaterally, no crackles, no rales, no rhonchi and no wheezes Cardio Rate: regular rate Rhythm: regular rhythm Heart sounds: S1 normal heart sound present and S2 normal heart sound present GI Inspection: Yes normal to inspection Palpation (GI): Soft to palpation, nontender, no guarding and not rigid Percussion: Yes normal to percussion Auscultation: normal bowel sounds Rectal Exam - Female: visual inspection normal, normal sphincter tone, No External hemorrhoid(s) present, No Internal hemorrhoid(s) present, No fecal impaction, No Anal fissure(s) present, heme negative stool and No tenderness Back/Spine/Pelvis Pelvis: Other pelvic findings (large stage 4 pressure ulcer over sacrum, surrounding tenderness) Sacrum: erythema and tenderness Coccyx: Other pelvic findings (large stage 4 pressure ulcer over sacrum, surrounding tenderness) Skin Other: large sacral ulcer with tunneling, erythema, non-heraling, tender bilateral brusing to lower extremities Neuro General: oriented to person, oriented to place, No oriented to time, no meningeal signs, no focal motor deficits, No confusion and Unable to assess gait Cranial nerves: Yes CN's II-XII intact bilaterally, Yes Equal, round and reactive pupils present, Yes Bilaterally intact EOM present, Yes Nystagmus not present, Yes Normal facial strength present, Yes Midline tongue present, Yes Ability to bilaterally rotate head present and Yes Ability to bilaterally cinthia vate shoulders present Speech: No Abnormal speech present Gait exam (Neuro): Unable to assess gait Motor exam (neuro): 5/5 motor strength present throughout Pupils: Normal pupillary reactivity/response: bilateral Extrem Other: bruising to bilateral lower legs Psych Affect: normal affect Course Course Course Narrative: 81-year-old female [facility] for low hemoglobin [facility]. Patient has stage 4 tunneling nonhealing pressure ulcer with surrounding erythema over her sacrum, she has multiple areas of ecchymoses in her bilateral lower extremities and right upper extremity. She is alert and oriented to person and place, she has pale conjunctivae. Patient was here May 07 and admitted for acute kidney injury. She received a blood transfusion 04/29/21. Her hemoglobin 10 days ago was 8.8, today is 6.1. Her hematocrit 10 days ago was 27.8, today it is 19.3. Patient had a CT abdomen pelvis May 07 that only showed decubitus ulcer. Source of bleeding was not determined during her admission, she had positive guaiac earlier this month. Patient's has a negative guaiac today. Patient has worsening kidney function today, her creatinine is 2.06 today, her last creatinine was 1.76. Patient's code status is to do CPR, but she is a do not intubate. Reevaluation(s) Reevaluation #1: Patient's lactate was not elevated at 0.5, her BNP is only 77. Patient has a positive urine with 3+ leukocyte esterase and white blood cells too numerous to count. Coags are within normal limits. Total reticulocytes are low at 0.014, TIBC is low at 196. Ordered wound consult for patient's decubitus ulcer Starting ceftriaxone for UTI, will admit Time: 17:30 Reevaluation #2: Awaiting CT scan for admission, called Dr Rodriguez, radiologist, who said it was just signed off CT/CT abdomen pelvis wo con IMPRESSION: New nondisplaced coccyx fracture since study of May 07, 2021. Cortical break which may be related to the fracture or possible erosion with osteomyelitis about the coccyx present. ? Increase in subcutaneous fat stranding in the region of this ulcer and extending to the sacrum with some gas being present. There also appears to be possible development of a small abscess about the left posterior subcutaneous tissues. The evaluation is very limited due to streak artifact from the bilateral hip arthroplasties. Ultrasound may be of help in demonstrating possible abscess in this location. ? Diverticular disease with wall thickening and streaking within adjacent fat. No evidence of diverticular abscess. ? Probable periportal edema persists however without IV contrast this is difficult to evaluate. ? Bilateral renal cysts. ? Prominent atherosclerotic disease. Started vanco for suspected osteo of coccyx, discussed with Dr Mcgowan, who will admit Medical Decision Making Lab Data Result diagrams: 05/24/21 12:44 05/24/21 12:44 Labs: Lab Results 05/24/21 05/24/21 05/24/21 Range/Units 12:44 12:44 12:44 WBC 8.1 (4.8-10.8) X10*3/uL RBC 2.09 L D (4.20-5.50) X10*6/uL Hgb 6.1 L* D (12.0-16.0) g/dl Hct 19.3 L* D (37.0-47.0) % MCV 92.3 (80.0-98.0) fL MCH 29.2 (27.0-33.0) pg MCHC 31.6 (31.0-35.0) g/dl RDW 13.2 (11.0-16.0) % Plt Count 226 (160-400) X10*3/uL MPV 9.1 L (9.4-12.3) fL Immature Gran % (Auto) 0.4 (0.0-0.4) % Neut % (Auto) 79.3 H (45-73) % Lymph % (Auto) 12.9 L (20-40) % [place] % (Auto) 4.6 (2-11) % Eos % (Auto) 2.4 (0-4) % Baso % (Auto) 0.4 (0-2) % Lymph # (Auto) 1.0 L (1.2-4.9) X10*3/uL [place] # (Auto) 0.4 (0.1-1.2) X10*3/uL Eos # (Auto) 0.2 (0.0-0.4) X10*3/uL Baso # (Auto) 0.0 (0.0-0.2) X10*3/uL Abs Immat Gran (auto) 0.03 (0.00-0.03) X10*3/uL Absolute Neuts (auto) 6.4 (2.0-8.3) x10*3/uL Absolute Nucleated RBC 0.000 (0.0-0.012) X10*3/uL Nucleated RBC % (auto) 0.0 (0.0-0.2) /100WBC Absolute Retic (0.026-0.095) X10*6/uL Percent Retic (0.5-1.8) % Immature Retic Fraction (3.0-15.9) % Retic Hgb Equivalent (30.0-35.0) pg PT (9.9-13.0) SEC INR (0.9-1.1) APTT (24.1-38.0) SEC Sodium 136 (135-145) mmol/L Potassium 5.0 D (3.3-5.1) mmol/L Chloride 104 (96-108) mmol/L Carbon Dioxide 22 (22-29) mmol/L Anion Gap 15 (12-20) BUN 53 H (9-16) mg/dL Creatinine 2.06 H (0.5-1.4) mg/dL Estim Creat Clear Calc 21.6 Estimated GFR 23 Random Glucose 98 (60-115) mg/dL Lactic Acid 0.5 (0.5-2.0) mmol/L Calcium 8.4 (8.4-10.2) mg/dL Iron (30-160) mcg/dL TIBC (228-428) mcg/dL % Saturation (15-50) % Unsat Iron Binding ug/dL Total Bilirubin 0.2 (0.0-1.0) mg/dL AST 14 D (5-31) U/L ALT 20 (0-31) U/L Alkaline Phosphatase 151 H D (39-117) U/L Troponin I High Sens (<3.5-17.0) ng/L B-Natriuretic Peptide (<100) pg/mL Total Protein 5.2 L (6.5-8.0) g/dL Albumin 3.0 L (3.5-5.0) g/dL Urine Color Urine Appearance Urine pH (5.0-8.0) Ur Specific [place] (1.005-1.025) Urine Protein (NEG-TRACE) MG/DL Urine Glucose (UA) (NEG) MG/DL Urine Ketones (NEG) MG/DL Urine Blood (NEG) Urine Nitrite (NEG) Ur Leukocyte Esterase (NEG) Urine RBC (0) /HPF Urine WBC (0-4) /HPF Ur Squamous Epith Cells /LPF Urine Bacteria /LPF Stool Occult Blood (NEGATIVE) COVID-19 (GENIE) (Negative) COVID-19 Clin Com Blood Type Antibody Screen Enhanced Crossmatch 05/24/21 05/24/21 05/24/21 Range/Units 12:44 12:44 12:47 WBC (4.8-10.8) X10*3/uL RBC (4.20-5.50) X10*6/uL Hgb (12.0-16.0) g/dl Hct (37.0-47.0) % MCV (80.0-98.0) fL MCH (27.0-33.0) pg MCHC (31.0-35.0) g/dl RDW (11.0-16.0) % Plt Count (160-400) X10*3/uL MPV (9.4-12.3) fL Immature Gran % (Auto) (0.0-0.4) % Neut % (Auto) (45-73) % Lymph % (Auto) (20-40) % [place] % (Auto) (2-11) % Eos % (Auto) (0-4) % Baso % (Auto) (0-2) % Lymph # (Auto) (1.2-4.9) X10*3/uL [place] # (Auto) (0.1-1.2) X10*3/uL Eos # (Auto) (0.0-0.4) X10*3/uL Baso # (Auto) (0.0-0.2) X10*3/uL Abs Immat Gran (auto) (0.00-0.03) X10*3/uL Absolute Neuts (auto) (2.0-8.3) x10*3/uL Absolute Nucleated RBC (0.0-0.012) X10*3/uL Nucleated RBC % (auto) (0.0-0.2) /100WBC Absolute Retic (0.026-0.095) X10*6/uL Percent Retic (0.5-1.8) % Immature Retic Fraction (3.0-15.9) % Retic Hgb Equivalent (30.0-35.0) pg PT (9.9-13.0) SEC INR (0.9-1.1) APTT (24.1-38.0) SEC Sodium (135-145) mmol/L Potassium (3.3-5.1) mmol/L Chloride (96-108) mmol/L Carbon Dioxide (22-29) mmol/L Anion Gap (12-20) BUN (9-16) mg/dL Creatinine (0.5-1.4) mg/dL Estim Creat Clear Calc Estimated GFR Random Glucose (60-115) mg/dL Lactic Acid (0.5-2.0) mmol/L Calcium (8.4-10.2) mg/dL Iron (30-160) mcg/dL TIBC (228-428) mcg/dL % Saturation (15-50) % Unsat Iron Binding ug/dL Total Bilirubin (0.0-1.0) mg/dL AST (5-31) U/L ALT (0-31) U/L Alkaline Phosphatase (39-117) U/L Troponin I High Sens 6.1 D (<3.5-17.0) ng/L B-Natriuretic Peptide 77 (<100) pg/mL Total Protein (6.5-8.0) g/dL Albumin (3.5-5.0) g/dL Urine Color Urine Appearance Urine pH (5.0-8.0) Ur Specific [place] (1.005-1.025) Urine Protein (NEG-TRACE) MG/DL Urine Glucose (UA) (NEG) MG/DL Urine Ketones (NEG) MG/DL Urine Blood (NEG) Urine Nitrite (NEG) Ur Leukocyte Esterase (NEG) Urine RBC (0) /HPF Urine WBC (0-4) /HPF Ur Squamous Epith Cells /LPF Urine Bacteria /LPF Stool Occult Blood NEGATIVE (NEGATIVE) COVID-19 (GENIE) Negative (Negative) COVID-19 Clin Com See Note Blood Type Antibody Screen Enhanced Crossmatch 05/24/21 05/24/21 05/24/21 Range/Units 13:05 13:24 13:24 WBC (4.8-10.8) X10*3/uL RBC (4.20-5.50) X10*6/uL Hgb (12.0-16.0) g/dl Hct (37.0-47.0) % MCV (80.0-98.0) fL MCH (27.0-33.0) pg MCHC (31.0-35.0) g/dl RDW (11.0-16.0) % Plt Count (160-400) X10*3/uL MPV (9.4-12.3) fL Immature Gran % (Auto) (0.0-0.4) % Neut % (Auto) (45-73) % Lymph % (Auto) (20-40) % [place] % (Auto) (2-11) % Eos % (Auto) (0-4) % Baso % (Auto) (0-2) % Lymph # (Auto) (1.2-4.9) X10*3/uL [place] # (Auto) (0.1-1.2) X10*3/uL Eos # (Auto) (0.0-0.4) X10*3/uL Baso # (Auto) (0.0-0.2) X10*3/uL Abs Immat Gran (auto) (0.00-0.03) X10*3/uL Absolute Neuts (auto) (2.0-8.3) x10*3/uL Absolute Nucleated RBC (0.0-0.012) X10*3/uL Nucleated RBC % (auto) (0.0-0.2) /100WBC Absolute Retic (0.026-0.095) X10*6/uL Percent Retic (0.5-1.8) % Immature Retic Fraction (3.0-15.9) % Retic Hgb Equivalent (30.0-35.0) pg PT 11.8 (9.9-13.0) SEC INR 1.0 (0.9-1.1) APTT 25.7 D (24.1-38.0) SEC Sodium (135-145) mmol/L Potassium (3.3-5.1) mmol/L Chloride (96-108) mmol/L Carbon Dioxide (22-29) mmol/L Anion Gap (12-20) BUN (9-16) mg/dL Creatinine (0.5-1.4) mg/dL Estim Creat Clear Calc Estimated GFR Random Glucose (60-115) mg/dL Lactic Acid (0.5-2.0) mmol/L Calcium (8.4-10.2) mg/dL Iron (30-160) mcg/dL TIBC (228-428) mcg/dL % Saturation (15-50) % Unsat Iron Binding ug/dL Total Bilirubin (0.0-1.0) mg/dL AST (5-31) U/L ALT (0-31) U/L Alkaline Phosphatase (39-117) U/L Troponin I High Sens (<3.5-17.0) ng/L B-Natriuretic Peptide (<100) pg/mL Total Protein (6.5-8.0) g/dL Albumin (3.5-5.0) g/dL Urine Color YELLOW Urine Appearance TURBID Urine pH 5.5 (5.0-8.0) Ur Specific [place] 1.020 (1.005-1.025) Urine Protein 2+ H (NEG-TRACE) MG/DL Urine Glucose (UA) NEG (NEG) MG/DL Urine Ketones NEG (NEG) MG/DL Urine Blood TRACE (NEG) Urine Nitrite NEG (NEG) Ur Leukocyte Esterase 3+ H (NEG) Urine RBC 10-14 H (0) /HPF Urine WBC TNTC H (0-4) /HPF Ur Squamous Epith Cells 1+ /LPF Urine Bacteria 3+ /LPF Stool Occult Blood (NEGATIVE) COVID-19 (GENIE) (Negative) COVID-19 Clin Com Blood Type B Positive Antibody Screen NEGATIVE Enhanced Crossmatch See Detail 05/24/21 05/24/21 Range/Units 13:24 13:24 WBC (4.8-10.8) X10*3/uL RBC (4.20-5.50) X10*6/uL Hgb (12.0-16.0) g/dl Hct (37.0-47.0) % MCV (80.0-98.0) fL MCH (27.0-33.0) pg MCHC (31.0-35.0) g/dl RDW (11.0-16.0) % Plt Count (160-400) X10*3/uL MPV (9.4-12.3) fL Immature Gran % (Auto) (0.0-0.4) % Neut % (Auto) (45-73) % Lymph % (Auto) (20-40) % [place] % (Auto) (2-11) % Eos % (Auto) (0-4) % Baso % (Auto) (0-2) % Lymph # (Auto) (1.2-4.9) X10*3/uL [place] # (Auto) (0.1-1.2) X10*3/uL Eos # (Auto) (0.0-0.4) X10*3/uL Baso # (Auto) (0.0-0.2) X10*3/uL Abs Immat Gran (auto) (0.00-0.03) X10*3/uL Absolute Neuts (auto) (2.0-8.3) x10*3/uL Absolute Nucleated RBC (0.0-0.012) X10*3/uL Nucleated RBC % (auto) (0.0-0.2) /100WBC Absolute Retic 0.014 L (0.026-0.095) X10*6/uL Percent Retic 0.7 (0.5-1.8) % Immature Retic Fraction 9.6 (3.0-15.9) % Retic Hgb Equivalent 33.3 (30.0-35.0) pg PT (9.9-13.0) SEC INR (0.9-1.1) APTT (24.1-38.0) SEC Sodium (135-145) mmol/L Potassium (3.3-5.1) mmol/L Chloride (96-108) mmol/L Carbon Dioxide (22-29) mmol/L Anion Gap (12-20) BUN (9-16) mg/dL Creatinine (0.5-1.4) mg/dL Estim Creat Clear Calc Estimated GFR Random Glucose (60-115) mg/dL Lactic Acid (0.5-2.0) mmol/L Calcium (8.4-10.2) mg/dL Iron 130 (30-160) mcg/dL TIBC 196 L (228-428) mcg/dL % Saturation 66 H (15-50) % Unsat Iron Binding 66 ug/dL Total Bilirubin (0.0-1.0) mg/dL AST (5-31) U/L ALT (0-31) U/L Alkaline Phosphatase (39-117) U/L Troponin I High Sens (<3.5-17.0) ng/L B-Natriuretic Peptide (<100) pg/mL Total Protein (6.5-8.0) g/dL Albumin (3.5-5.0) g/dL Urine Color Urine Appearance Urine pH (5.0-8.0) Ur Specific [place] (1.005-1.025) Urine Protein (NEG-TRACE) MG/DL Urine Glucose (UA) (NEG) MG/DL Urine Ketones (NEG) MG/DL Urine Blood (NEG) Urine Nitrite (NEG) Ur Leukocyte Esterase (NEG) Urine RBC (0) /HPF Urine WBC (0-4) /HPF Ur Squamous Epith Cells /LPF Urine Bacteria /LPF Stool Occult Blood (NEGATIVE) COVID-19 (GENIE) (Negative) COVID-19 Clin Com Blood Type Antibody Screen Enhanced Crossmatch ECG Data Interpretation: Sinus at a rate of 80, TX 168, QRS 74, QTC 449, normal axis, no ST elevations or depressions, no T-wave changes Discharge Plan Discharge Clinical Impression: Anemia, Decubitus ulcer, Osteomyelitis, Acute UTI Patient Disposition: Admitted As Inpatient
[2021-05-24 12:49] LABS: MANUAL DIFF FLAG NO
[2021-05-24 12:54] LABS: OBS Int Ctl Valid YES; OBS1 NEGATIVE (NEGATIVE)
[2021-05-24 12:56] LABS: Basophils Percent Auto 0.4 % (0-2); Eosinophils Absolute Auto 0.2 X10*3/uL (0.0-0.4); Eosinophils Percent Auto 2.4 % (0-4); Imm Gran Abs Auto 0.03 X10*3/uL (0.00-0.03); Imm Gran Pct Auto 0.4 % (0.0-0.4); Lymphocytes Percent Auto 12.9 % (20-40); Mean Corpuscular HGB Conc 31.6 g/dl (31.0-35.0); Mean Corpuscular Hemoglobin 29.2 pg (27.0-33.0); Mean Corpuscular Volume 92.3 fL (80.0-98.0); Mean Platelet Volume 9.1 fL (9.4-12.3); Monocytes Absolute Auto 0.4 X10*3/uL (0.1-1.2); Monocytes Percent Auto 4.6 % (2-11); Neutrophils Absolute Auto 6.4 x10*3/uL (2.0-8.3); Neutrophils Percent Auto 79.3 % (45-73); Platelet Count 226 X10*3/uL (160-400); Red Blood Count 2.09 X10*6/uL (4.20-5.50); Red Cell Distribution Width 13.2 % (11.0-16.0); White Blood Count 8.1 X10*3/uL (4.8-10.8)
[2021-05-24 13:00] LABS: Hematocrit 19.3 % (37.0-47.0); Hemoglobin 6.1 g/dl (12.0-16.0)
[2021-05-24 13:06] LABS: Lactic Acid 0.5 mmol/L (0.5-2.0)
[2021-05-24 13:08] LABS: COVID-19 Test Negative (Negative); IDNOW Serial# 16C4AD1C
[2021-05-24 13:13] LABS: Alanine Aminotransferase 20 U/L (0-31); Alkaline Phosphatase 151 U/L (39-117); Anion Gap 15 (12-20); Aspartate Amino Transferase 14 U/L (5-31); Bilirubin Total 0.2 mg/dL (0.0-1.0); Blood Urea Nitrogen 53 mg/dL (9-16); Calcium 8.4 mg/dL (8.4-10.2); Carbon Dioxide 22 mmol/L (22-29); Chloride 104 mmol/L (96-108); Creatinine Clr Calc Pharmacy 21.6; Estimated Glomerular Filt Rate 23; Glucose Random 98 mg/dL (60-115); Sodium 136 mmol/L (135-145); Total Protein 5.2 g/dL (6.5-8.0)
[2021-05-24 13:17] LABS: B Type Natriuretic Peptide 77 pg/mL (<100); Troponin-I High Sensitivity 6.1 ng/L (<3.5-17.0)
[2021-05-24 13:20] LABS: Appearance Urine TURBID; Color Urine YELLOW; Glucose Urine UA NEG (NEG); Leukocyte Esterase Urine 3+ (NEG); Nitrite Urine NEG (NEG); PH 5.5 (5.0-8.0); UACC Culture Trigger YES; Urine Blood TRACE (NEG); Urine Ketones NEG (NEG); Urine Protein 2+ MG/DL (NEG-TRACE)
[2021-05-24 13:30] LABS: Immature Retic Fraction 9.6 % (3.0-15.9); Retic HGB Equivalent 33.3 pg (30.0-35.0); Reticulocyte Percent 0.7 % (0.5-1.8); Reticulocytes Absolute 0.014 X10*6/uL (0.026-0.095)
[2021-05-24 13:36] LABS: Prothrombin Time 11.8 SEC (9.9-13.0)
[2021-05-24 13:39] LABS: Partial Thromboplastin Time 25.7 SEC (24.1-38.0)
[2021-05-24 13:42] LABS: Iron 130 mcg/dL (30-160); Percent Iron Saturation 66 % (15-50); Total Iron Binding Capacity 196 mcg/dL (228-428); Unsaturated Iron Binding 66 ug/dL
[2021-05-24 13:48] LABS: Bacteria Urine 3+ /LPF; Squamous Epithelial Cell Urine 1+ /LPF; WBC Urine TNTC /HPF (0-4)
--- NOTE | 2021-05-24 14:33 | PC.NURSE ---
remains axox3. repositioned in bed to relieve pressure from coccyx. at bedside. tolerated CT well per patient. pale warm and dry. nsr on monitor.
--- NOTE | 2021-05-24 17:00 | PC.NURSE ---
no distress. resting quietly. nad.
[2021-05-24] MEDS: cefTRIAXone sodium 1 GM in 0.9 % Sodium Chloride 50 ML IV (17:01)
--- NOTE | 2021-05-24 17:36 | PHA.MEDREC ---
Pharmacy Consult ? Medication Reconciliation Pharmacy has completed the medication reconciliation.
--- NOTE | 2021-05-24 18:11 | PM.IMHP ---
History of Present Illness Date of Service: 05/24/21 Chief Complaint: low hgb, worsening coccyx ulcer 81F with multiple recent admissions, sent in from SNF for hgb of 5.7 and worsneing coccyx pressure ulcer. on last admission patient had bradycardia due to coreg and aricept which were disconitnued. course had been complicated by VRE bacteremia of unclear origin. cutlures had cleared, she was being treated with linezolid. patient has also been having recurrent acute on chronic anemia, multifactorial, elements of hemolysis, GI bleed (had erosive duodenitis and gastritis on prior EGD, and inflammatory). she was also evaluated by surgery for her coccyz ulcer, at that time was considered stage II and recommendations were for local care. she was most recently discharged to SNF on 05/15/21, usually ambulates with walker. now returning for labs showing severe anemia of 5.7 and worsening coccyx ulcer. patient herself has poor insight into her medical conditions, but reports no symptoms, she does vaguely remember being sent because of her labs. in ED hgb 6.1, given 2 units prbc, CT a/p showed: New nondisplaced coccyx fracture since study of May 07, 2021. Cortical break which may be related to the fracture or possible erosion with osteomyelitis about the coccyx present. ? Increase in subcutaneous fat stranding in the region of this ulcer and extending to the sacrum with some gas being present. There also appears to be possible development of a small abscess about the left posterior subcutaneous tissues. UA was also posiibve for bacteria, WBC and nitrites. no evidence of sepsis. Review of Systems Review of Systems: Constitutional: Denies fever, denies Chills Eyes: denies blurry vision ENT: denies sore throat CVS: denies chest pain Respiratory: Denies dyspnea GI: no abdominal pain : denies dysuria MSK: denies neck pain Skin: denies rash Neuro: denies specific motor weakness Psych: denies suicidal ideation Endocrine: denies heat/cold intolerance Hematologic: denies easy bleeding Allergy: denies hives FORMERLY [facility], 1928–1983 Medical History Anemia CHF (congestive heart failure) CLL (chronic lymphocytic leukemia) Coronary artery calcification seen on CAT scan COVID-19 vaccine series completed Dementia Essential hypertension Hx of reduction of closed dislocation Hyperlipidemia NSTEMI (non-ST elevated myocardial infarction) Peripheral artery disease Peripheral vascular disease Pulmonary fibrosis Ulcerative colitis Vertigo VRE bacteremia Family History Father No problems noted. Mother No problems noted. Surgical History H/O carotid endarterectomy H/O colonoscopy History of hip replacement History of liver biopsy History of revision of total hip arthroplasty Hx of lumbar discectomy S/P popliteal-distal bypass Social History Household Members: Spouse Household Members Other:: Housing: House Are you a primary reservoir caretaker to a significant other at home: No Unable to assess alcohol history related to: Unknown Alcohol intake: never Patient Tobacco Use Status: Never used Tobacco Tobacco use type: Cigarette Years Smoked: 62 e-Cigarette/Vaping Use: Currently Using Second Hand Smoke Exposure: No Use of substances other than those prescribed or required for medical reasons: No Advance Directives: Yes Advance Directives on File: Yes Advance Directives Date on File: 05/06/20 service: No Current occupational status: retired 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 Meds Allergies Allergy/AdvReac Type Severity Reaction Status Date / Time diazepam [DIAZEPAM] Allergy Severe RASH Verified 04/09/21 15:13 Dayriet-LGB-RwW Reductase Allergy Severe Muscle Pain Verified 04/09/21 15:13 Inhibitor [[id number] REDUCTASE INHIBITOR] Active Medications: Current Medications Amlodipine Besylate (Amlodipine Besylate 10 Mg Tablet) 10 mg PO BEDTIME BEAR; Protocol Ascorbic Acid (Ascorbic Acid 500 Mg Tablet) 1,000 mg PO DAILY BEAR Aspirin (Aspirin Enteric Coated 81 Mg Tablet.) 81 mg PO DAILY BEAR Calcitonin [place] (Calcitonin,[place],Synth Nasal 3.7 Ml Bottle) 1 spray NOSTRILALT DAILY BEAR Collagenase (Collagenase Clostridium Hist. 30 Gm Tube) 1 appl TOPICAL BID BEAR; Protocol Donepezil HCl (Donepezil Hcl 10 Mg Tablet) 10 mg PO BEDTIME BEAR Ferrous Sulfate (Ferrous Sulfate 324 Mg Tablet.) 324 mg PO DAILY BEAR Hydralazine HCl (Hydralazine Hcl 50 Mg Tablet) 50 mg PO TID BEAR; Protocol Linezolid (Zyvox/D5w) 600 mg in 300 mls @ 300 mls/hr IV Q12H BEAR Lisinopril (Lisinopril 5 Mg Tablet) 5 mg PO DAILY BEAR; Protocol Multivitamins/Vitamin C (Multivitamin Tablet) 1 tab PO DAILY BEAR Omeprazole (Omeprazole 20 Mg Capsule.Dr) 20 mg PO DAILY@0630 BEAR Tamsulosin HCl (Tamsulosin Hcl 0.4 Mg Capsule) 0.4 mg PO BEDTIME BEAR Vitamin D (Cholecalciferol (Vitamin D3) 25 Mcg Tablet) 250 mcg PO DAILY [facility] Home Medications Medication Instructions Recorded Confirmed Last Taken Type ascorbic acid (vitamin C) 1,000 mg 1,000 mg PO DAILY tab 03/09/20 05/24/21 04/29/21 History tablet aspirin 81 mg tablet,delayed 81 mg PO DAILY 03/09/20 05/24/21 04/28/21 History release cholecalciferol (vitamin D3) 250 250 mcg PO DAILY 03/09/20 05/24/21 04/29/21 History mcg (10,000 unit) capsule donepezil 10 mg tablet 10 mg PO BEDTIME 03/09/20 05/24/21 04/28/21 History ycdfxcbh-afa-[id number] acid 0.4 1 tab PO DAILY 03/09/20 05/24/21 04/29/21 History mg-lycopene 300 mcg-lutein 250 mcg tablet (Centrum Silver) lisinopril 5 mg tablet 1 tab PO DAILY 01/02/21 05/24/21 04/29/21 History Lactobacillus acidophilus 10 10,000 mmu cells PO DAILY 05/07/21 05/24/21 Unknown History billion cell capsule (Probiotic) amlodipine 10 mg tablet 10 mg PO BEDTIME 05/07/21 05/24/21 Unknown History calcitonin (salmon) 200 1 spray INTRANASAL DAILY 05/07/21 05/24/21 Unknown History unit/actuation nasal spray evolocumab 140 mg/mL subcutaneous 140 mg SUBCUT Q2W 05/07/21 05/24/21 05/17/21 History pen injector (Repatha SureClick) ferrous sulfate 325 mg (65 mg 325 mg PO DAILY 05/07/21 05/24/21 Unknown History iron) tablet collagenase clostridium histo. 250 1 appl TOPICAL BID 05/24/21 05/24/21 Unknown History unit/gram topical ointment (Santyl) hydralazine 100 mg tablet 50 mg PO TID 05/24/21 05/24/21 Unknown History tamsulosin 0.4 mg capsule 0.4 mg PO BEDTIME 05/24/21 05/24/21 Unknown History Physical Exam Vital Signs and Narrative: Vital Signs: Last Vital Signs Temp 97.6 F 05/24/21 17:57 Pulse 75 05/24/21 17:57 Resp 16 05/24/21 17:57 BP 159/50 H 05/24/21 17:57 Pulse Ox 100 05/24/21 17:50 BMI result Body Mass Index 22.8 General: no acute distress, frail appearing, HEENT: atraumatic Neck: normal to visual inspection CVS: S1, S2, RRR Resp: CTA bilateral Chest: non tender GI: soft, non tender, non distended : no CVA tenderness Skin: large coccyx ulcer, open, tunneling (see ER note picture) Extremities: no edema Neuro: Oriented X2, grossly intact Psych: cooperative, poor insight Results Labs CBC and Chem 7: 05/24/21 12:44 05/24/21 12:44 Labs: Laboratory Results - last 24 hr 05/24/21 05/24/21 05/24/21 12:44 12:44 12:44 MCV 92.3 MCH 29.2 MCHC 31.6 RDW 13.2 Plt Count 226 MPV 9.1 L Immature Gran % (Auto) 0.4 Neut % (Auto) 79.3 H Lymph % (Auto) 12.9 L [place] % (Auto) 4.6 Eos % (Auto) 2.4 Baso % (Auto) 0.4 Lymph # (Auto) 1.0 L [place] # (Auto) 0.4 Eos # (Auto) 0.2 Baso # (Auto) 0.0 Abs Immat Gran (auto) 0.03 Absolute Neuts (auto) 6.4 Absolute Nucleated RBC 0.000 Nucleated RBC % (auto) 0.0 Absolute Retic Percent Retic Immature Retic Fraction Retic Hgb Equivalent PT INR APTT Anion Gap 15 Estim Creat Clear Calc 21.6 Estimated GFR 23 Random Glucose 98 Lactic Acid 0.5 Calcium 8.4 Iron TIBC % Saturation Unsat Iron Binding Total Bilirubin 0.2 AST 14 D ALT 20 Alkaline Phosphatase 151 H D Troponin I High Sens B-Natriuretic Peptide Total Protein 5.2 L Albumin 3.0 L Urine Color Urine Appearance Urine pH Ur Specific [place] Urine Protein Urine Glucose (UA) Urine Ketones Urine Blood Urine Nitrite Ur Leukocyte Esterase Urine RBC Urine WBC Ur Squamous Epith Cells Urine Bacteria Stool Occult Blood COVID-19 (GENIE) COVID-19 Clin Com Blood Type Antibody Screen Enhanced Crossmatch 05/24/21 05/24/21 05/24/21 12:44 12:44 12:47 MCV MCH MCHC RDW Plt Count MPV Immature Gran % (Auto) Neut % (Auto) Lymph % (Auto) [place] % (Auto) Eos % (Auto) Baso % (Auto) Lymph # (Auto) [place] # (Auto) Eos # (Auto) Baso # (Auto) Abs Immat Gran (auto) Absolute Neuts (auto) Absolute Nucleated RBC Nucleated RBC % (auto) Absolute Retic Percent Retic Immature Retic Fraction Retic Hgb Equivalent PT INR APTT Anion Gap Estim Creat Clear Calc Estimated GFR Random Glucose Lactic Acid Calcium Iron TIBC % Saturation Unsat Iron Binding Total Bilirubin AST ALT Alkaline Phosphatase Troponin I High Sens 6.1 D B-Natriuretic Peptide 77 Total Protein Albumin Urine Color Urine Appearance Urine pH Ur Specific [place] Urine Protein Urine Glucose (UA) Urine Ketones Urine Blood Urine Nitrite Ur Leukocyte Esterase Urine RBC Urine WBC Ur Squamous Epith Cells Urine Bacteria Stool Occult Blood NEGATIVE COVID-19 (GENIE) Negative COVID-19 [employer] Com See Note Blood Type Antibody Screen Enhanced Crossmatch 05/24/21 05/24/21 05/24/21 13:05 13:24 13:24 MCV MCH MCHC RDW Plt Count MPV Immature Gran % (Auto) Neut % (Auto) Lymph % (Auto) [place] % (Auto) Eos % (Auto) Baso % (Auto) Lymph # (Auto) [place] # (Auto) Eos # (Auto) Baso # (Auto) Abs Immat Gran (auto) Absolute Neuts (auto) Absolute Nucleated RBC Nucleated RBC % (auto) Absolute Retic Percent Retic Immature Retic Fraction Retic Hgb Equivalent PT 11.8 INR 1.0 APTT 25.7 D Anion Gap Estim Creat Clear Calc Estimated GFR Random Glucose Lactic Acid Calcium Iron TIBC % Saturation Unsat Iron Binding Total Bilirubin AST ALT Alkaline Phosphatase Troponin I High Sens B-Natriuretic Peptide Total Protein Albumin Urine Color YELLOW Urine Appearance TURBID Urine pH 5.5 Ur Specific [place] 1.020 Urine Protein 2+ H Urine Glucose (UA) NEG Urine Ketones NEG Urine Blood TRACE Urine Nitrite NEG Ur Leukocyte Esterase 3+ H Urine RBC 10-14 H Urine WBC TNTC H Ur Squamous Epith Cells 1+ Urine Bacteria 3+ Stool Occult Blood COVID-19 (GENIE) COVID-19 Clin Com Blood Type B Positive Antibody Screen NEGATIVE Enhanced Crossmatch See Detail 05/24/21 05/24/21 13:24 13:24 MCV MCH MCHC RDW Plt Count MPV Immature Gran % (Auto) Neut % (Auto) Lymph % (Auto) [place] % (Auto) Eos % (Auto) Baso % (Auto) Lymph # (Auto) [place] # (Auto) Eos # (Auto) Baso # (Auto) Abs Immat Gran (auto) Absolute Neuts (auto) Absolute Nucleated RBC Nucleated RBC % (auto) Absolute Retic 0.014 L Percent Retic 0.7 Immature Retic Fraction 9.6 Retic Hgb Equivalent 33.3 PT INR APTT Anion Gap Estim Creat Clear Calc Estimated GFR Random Glucose Lactic Acid Calcium Iron 130 TIBC 196 L % Saturation 66 H Unsat Iron Binding 66 Total Bilirubin AST ALT Alkaline Phosphatase Troponin I High Sens B-Natriuretic Peptide Total Protein Albumin Urine Color Urine Appearance Urine pH Ur Specific [place] Urine Protein Urine Glucose (UA) Urine Ketones Urine Blood Urine Nitrite Ur Leukocyte Esterase Urine RBC Urine WBC Ur Squamous Epith Cells Urine Bacteria Stool Occult Blood COVID-19 (GENIE) COVID-19 Clin Com Blood Type Antibody Screen Enhanced Crossmatch Imaging Radiologist's Impressions: Impressions Chest X-Ray 05/24/21 12:29 IMPRESSION: Stable bibasilar interstitial disease. Abdomen/Pelvis CT 05/24/21 14:12 IMPRESSION: New nondisplaced coccyx fracture since study of May 07, 2021. Cortical break which may be related to the fracture or possible erosion with osteomyelitis about the coccyx present. Increase in subcutaneous fat stranding in the region of this ulcer and extending to the sacrum with some gas being present. There also appears to be possible development of a small abscess about the left posterior subcutaneous tissues. The evaluation is very limited due to streak artifact from the bilateral hip arthroplasties. Ultrasound may be of help in demonstrating possible abscess in this location. Diverticular disease with wall thickening and streaking within adjacent fat. No evidence of diverticular abscess. Probable periportal edema persists however without IV contrast this is difficult to evaluate. Bilateral renal cysts. Prominent atherosclerotic disease. . Fleischner guidelines were followed. Assessment and Plan (1) Anemia: Status: Acute Plan 81F presented with anemia, worsening pressure ulcer recurrent acute on chronic anemia multifactorial was previously mild hemolysis, chronic blood loss suspect main factor now inflammatory from osteomyelitis continue ppi monitor cbc post 2 units prbc in ED coccyx pressure ulcer with osteomyeltis no sepsis history of vre bacteremia, will give zyvox, ID and surgery eval, local care bacturia will empirically treat with zyvox and rocephin, follow up cultures paroxysmal afib beta blcoker stopped last admisison due to bradycardia no AC due to bleeding risk, severe anemia dementia presumed alzheimers aricept stopped for bradycardia PVD will conitnue asa along with ppi not tolerant of statin, repatha on hold htn lisniopril, amlodipine, hydralazine CKD IV stable, monitor dvt prophylaxis - mechanical due to sever anemia DNI, not DNR patient with severe anemia and singificant pressure ulcer requiring close monitoring and iv abx, high risk for further decompensation due to age and frailty, will likely require atleast 2 midnights in hospital Quality Stroke Does the patient have a stroke diagnosis?: No VTE Prior VTE?: No VTE Risk Level:: Medical - moderate - high VTE Device Contraindication: N/A - Device Ordered VTE Drug Contraindication: Treatment Not Tolerated
[2021-05-24] MEDS: Linezolid/D5W 600 MG/300 ML PIGGYBACK 300 MG IV (19:00)
--- NOTE | 2021-05-24 19:21 | PC.NURSE ---
Magalylid hung and running per MAR. Attempt to give report to the floor, RN to call back.
[2021-05-24] MEDS: amLODIPine Besylate 10 MG TABLET PO (21:32)
[2021-05-24] MEDS: Tamsulosin HCL 0.4 MG CAPSULE PO (21:32)
[2021-05-24] MEDS: hydrALAZINE HCl 50 MG TABLET PO (21:33)
[2021-05-24] MEDS: 0.9 % Sodium Chloride Flush 3 ML SYRINGE IVFLUSH (23:46)
[2021-05-25 03:28] VITALS: BP 158/66; PULSE 77; RESP 16; TEMP 36.6; O2SAT 97
[2021-05-25 06:10] LABS: Hematocrit 26.4 % (37.0-47.0); Hemoglobin 9.1 g/dl (12.0-16.0); Mean Corpuscular HGB Conc 34.5 g/dl (31.0-35.0); Mean Corpuscular Hemoglobin 31.5 pg (27.0-33.0); Mean Corpuscular Volume 91.3 fL (80.0-98.0); Mean Platelet Volume 9.2 fL (9.4-12.3); Platelet Count 186 X10*3/uL (160-400); Red Blood Count 2.89 X10*6/uL (4.20-5.50); Red Cell Distribution Width 13.4 % (11.0-16.0); White Blood Count 6.1 X10*3/uL (4.8-10.8)
[2021-05-25] MEDS: Linezolid/D5W 600 MG/300 ML PIGGYBACK 300 MG IV ×2 (06:19→18:05)
[2021-05-25] MEDS: Omeprazole 20 MG CAPSULE.DR PO (06:19)
[2021-05-25 06:30] LABS: Anion Gap 16 (12-20); Blood Urea Nitrogen 47 mg/dL (9-16); Calcium 8.5 mg/dL (8.4-10.2); Carbon Dioxide 21 mmol/L (22-29); Chloride 104 mmol/L (96-108); Creatinine Clr Calc Pharmacy 29.1; Estimated Glomerular Filt Rate 33; Glucose Fasting 88 mg/dL (60-99); Potassium 4.8 mmol/L (3.3-5.1); Sodium 136 mmol/L (135-145)
[2021-05-25 07:50] VITALS: BP 159/70; PULSE 81; RESP 19; O2SAT 99
[2021-05-25 08:14] VITALS: TEMP 36.3
--- NOTE | 2021-05-25 08:57 | PM.CNGS ---
History of Present Illness Consult details Consult date: 05/25/21 Narrative: 81-year-old female referred for a sacral decubitus ulcer. Patient has multiple medical problems including chronic kidney failure, dementia, UTI, coronary arterydisease, hypertension, who had been in the halfway facility and was transferred to the ER yesterday because of anemia as well is worsening sacral coccygeal ulcer. She had been seen by the surgical service about almost 2 weeks ago in the hospital for the same problem of the coccygeal ulcer but at that time, this did not require any debridement. However, this seemed to have worsened since she had been in the snf. Patient says she of bed and ambulate, but she is a poor historian. Review of Systems Constitutional: Constitutional: Denies chills and Denies fever(s) Cardiovascular: Cardiovascular: Denies chest pain Respiratory: Respiratory: Denies cough Gastrointestinal: Gastrointestinal: Denies abdominal pain Genitourinary: Genitourinary: Denies difficulty voiding Comments: Incontinent Neurologic: Comments: Poor historian, seems to have some memory loss PMFSH Past Medical History Medical History Anemia CHF (congestive heart failure) CLL (chronic lymphocytic leukemia) Coronary artery calcification seen on CAT scan COVID-19 vaccine series completed Dementia Essential hypertension Hx of reduction of closed dislocation Hyperlipidemia NSTEMI (non-ST elevated myocardial infarction) Peripheral artery disease Peripheral vascular disease Pulmonary fibrosis Ulcerative colitis Vertigo VRE bacteremia Family History Family History Father No problems noted. Mother No problems noted. Surgical History Surgical History H/O carotid endarterectomy H/O colonoscopy History of hip replacement History of liver biopsy History of revision of total hip arthroplasty Hx of lumbar discectomy S/P popliteal-distal bypass Social History Social History Household Members: Other Household Members Other:: Housing: Alf Are you a primary director of career resources to a significant other at home: No Do you presently have visiting nurse or other home services: Yes (visiting nurse when was at home) Unable to assess alcohol history related to: Unknown Alcohol intake: never Patient Tobacco Use Status: Never used Tobacco Tobacco use type: Cigarette Years Smoked: 62 e-Cigarette/Vaping Use: Currently Using Second Hand Smoke Exposure: No Advance Directives Date on File: 05/06/20 service: No Current occupational status: retired 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 Meds Allergies Allergy/AdvReac Type Severity Reaction Status Date / Time diazepam [DIAZEPAM] Allergy Severe RASH Verified 04/09/21 15:13 [id number] Reductase Allergy Severe Muscle Pain Verified 04/09/21 15:13 Inhibitor [[id number] REDUCTASE INHIBITOR] Active Medications: Current Medications Acetaminophen (Acetaminophen 325 Mg Tablet) 650 mg PO Q6H PRN PRN Reason: Pain, Mild (Pain Scale 1-3) Amlodipine Besylate (Amlodipine Besylate 10 Mg Tablet) 10 mg PO BEDTIME [facility]; Protocol Last Admin: 05/24/21 21:32 Dose: 10 mg Documented by: Ascorbic Acid (Ascorbic Acid 500 Mg Tablet) 1,000 mg PO DAILY [facility] Aspirin (Aspirin Enteric Coated 81 Mg Tablet.) 81 mg PO DAILY [facility] Calcitonin [place] (Calcitonin,[place],Synth Nasal 3.7 Ml Bottle) 1 spray NOSTRILALT DAILY [facility] Collagenase (Collagenase Clostridium Hist. 30 Gm Tube) 1 appl TOPICAL BID [facility]; Protocol Last Admin: 05/24/21 21:38 Dose: Not Given Documented by: Ferrous Sulfate (Ferrous Sulfate 324 Mg Tablet.) 324 mg PO DAILY [facility] Hydralazine HCl (Hydralazine Hcl 50 Mg Tablet) 50 mg PO TID [facility]; Protocol Last Admin: 05/24/21 21:33 Dose: 50 mg Documented by: Linezolid (Zyvox/D5w) 600 mg in 300 mls @ 300 mls/hr IV Q12H [facility] Last Admin: 05/25/21 06:19 Dose: 300 mls/hr Documented by: Ceftriaxone Sodium 1 gm/ (Sodium Chloride) 50 mls @ 100 mls/hr IV Q24H [facility] Lisinopril (Lisinopril 5 Mg Tablet) 5 mg PO DAILY [facility]; Protocol Multivitamins/Vitamin C (Multivitamin Tablet) 1 tab PO DAILY [facility] Omeprazole (Omeprazole 20 Mg Capsule.) 20 mg PO DAILY@0630 [facility] Last Admin: 05/25/21 06:19 Dose: 20 mg Documented by: Sodium Chloride (0.9 % Sodium Chloride Flush 3 Ml Syringe) 3 ml IVFLUSH QSHIFT [facility] Last Admin: 05/24/21 23:46 Dose: 3 ml Documented by: Tamsulosin HCl (Tamsulosin Hcl 0.4 Mg Capsule) 0.4 mg PO BEDTIME [facility] Last Admin: 05/24/21 21:32 Dose: 0.4 mg Documented by: Vitamin D (Cholecalciferol (Vitamin D3) 25 Mcg Tablet) 250 mcg PO DAILY [facility] Home Medications Medication Instructions Recorded Confirmed Last Taken Type ascorbic acid (vitamin C) 1,000 mg 1,000 mg PO DAILY tab 03/09/20 05/24/21 04/29/21 History tablet aspirin 81 mg tablet,delayed 81 mg PO DAILY 03/09/20 05/24/21 04/28/21 History release cholecalciferol (vitamin D3) 250 250 mcg PO DAILY 03/09/20 05/24/21 04/29/21 History mcg (10,000 unit) capsule donepezil 10 mg tablet 10 mg PO BEDTIME 03/09/20 05/24/21 04/28/21 History wjeershw-oox-oivbp acid 0.4 1 tab PO DAILY 03/09/20 05/24/21 04/29/21 History mg-lycopene 300 mcg-lutein 250 mcg tablet (Centrum Silver) lisinopril 5 mg tablet 1 tab PO DAILY 01/02/21 05/24/21 04/29/21 History Lactobacillus acidophilus 10 10,000 mmu cells PO DAILY 05/07/21 05/24/21 Unknown History billion cell capsule (Probiotic) amlodipine 10 mg tablet 10 mg PO BEDTIME 05/07/21 05/24/21 Unknown History calcitonin (salmon) 200 1 spray INTRANASAL DAILY 05/07/21 05/24/21 Unknown History unit/actuation nasal spray evolocumab 140 mg/mL subcutaneous 140 mg SUBCUT Q2W 05/07/21 05/24/21 05/17/21 History pen injector (Repatha SureLevarick) ferrous sulfate 325 mg (65 mg 325 mg PO DAILY 05/07/21 05/24/21 Unknown History iron) tablet collagenase clostridium histo. 250 1 appl TOPICAL BID 05/24/21 05/24/21 Unknown History unit/gram topical ointment (Santyl) hydralazine 100 mg tablet 50 mg PO TID 05/24/21 05/24/21 Unknown History tamsulosin 0.4 mg capsule 0.4 mg PO BEDTIME 05/24/21 05/24/21 Unknown History Physical Exam Vital Signs: Vital Signs: Last Vital Signs Temp 97.4 F 05/25/21 08:14 Pulse 81 05/25/21 07:50 Resp 19 05/25/21 07:50 BP 159/70 H 05/25/21 07:50 Pulse Ox 99 05/25/21 07:50 BMI result Body Mass Index 22.8 Const: Other: Appears very frail although answers questions General: comfortable and no acute distress Orientation/consciousness: patient oriented x3 Neck: Neck: Yes no lymphadenopathy Resp: Effort & Inspection: normal respiratory effort Auscultation: clear to auscultation bilaterally Cardio: Rate: regular rate Rhythm: regular rhythm GI: Palpation (GI): Soft to palpation, nontender and no guarding Back/Spine/Pelvis: Other: Sick of decubitus ulcer, about 3 x 4 cm, with surrounding redness of the skin from irritation, the ulcer seems to undermine and has some tunneling, and involves the full-thickness of skin, subcutaneous fat and muscle. There seems to be significant fibrinous debris and nonviable skin. Neuro: General: patient oriented x3 Results Labs Result diagrams: 05/25/21 05:58 05/25/21 05:58 Labs: Abnormal lab results 05/24/21 05/24/21 05/24/21 Range/Units 12:44 12:44 13:05 RBC 2.09 L D (4.20-5.50) X10*6/uL Hgb 6.1 L* D (12.0-16.0) g/dl Hct 19.3 L* D (37.0-47.0) % MPV 9.1 L (9.4-12.3) fL Neut % (Auto) 79.3 H (45-73) % Lymph % (Auto) 12.9 L (20-40) % Lymph # (Auto) 1.0 L (1.2-4.9) X10*3/uL Absolute Retic (0.026-0.095) X10*6/uL Carbon Dioxide (22-29) mmol/L BUN 53 H (9-16) mg/dL Creatinine 2.06 H (0.5-1.4) mg/dL TIBC (228-428) mcg/dL % Saturation (15-50) % Alkaline Phosphatase 151 H D (39-117) U/L Total Protein 5.2 L (6.5-8.0) g/dL Albumin 3.0 L (3.5-5.0) g/dL Urine Protein 2+ H (NEG-TRACE) MG/DL Ur Leukocyte Esterase 3+ H (NEG) Urine RBC 10-14 H (0) /HPF Urine WBC TNTC H (0-4) /HPF Enhanced Crossmatch 05/24/21 05/24/21 05/24/21 Range/Units 13:24 13:24 13:24 RBC (4.20-5.50) X10*6/uL Hgb (12.0-16.0) g/dl Hct (37.0-47.0) % MPV (9.4-12.3) fL Neut % (Auto) (45-73) % Lymph % (Auto) (20-40) % Lymph # (Auto) (1.2-4.9) X10*3/uL Absolute Retic 0.014 L (0.026-0.095) X10*6/uL Carbon Dioxide (22-29) mmol/L BUN (9-16) mg/dL Creatinine (0.5-1.4) mg/dL TIBC 196 L (228-428) mcg/dL % Saturation 66 H (15-50) % Alkaline Phosphatase (39-117) U/L Total Protein (6.5-8.0) g/dL Albumin (3.5-5.0) g/dL Urine Protein (NEG-TRACE) MG/DL Ur Leukocyte Esterase (NEG) Urine RBC (0) /HPF Urine WBC (0-4) /HPF Enhanced Crossmatch See Detail 05/25/21 05/25/21 Range/Units 05:58 05:58 RBC 2.89 L D (4.20-5.50) X10*6/uL Hgb 9.1 L D (12.0-16.0) g/dl Hct 26.4 L D (37.0-47.0) % MPV 9.2 L (9.4-12.3) fL Neut % (Auto) (45-73) % Lymph % (Auto) (20-40) % Lymph # (Auto) (1.2-4.9) X10*3/uL Absolute Retic (0.026-0.095) X10*6/uL Carbon Dioxide 21 L (22-29) mmol/L BUN 47 H (9-16) mg/dL Creatinine 1.53 H (0.5-1.4) mg/dL TIBC (228-428) mcg/dL % Saturation (15-50) % Alkaline Phosphatase (39-117) U/L Total Protein (6.5-8.0) g/dL Albumin (3.5-5.0) g/dL Urine Protein (NEG-TRACE) MG/DL Ur Leukocyte Esterase (NEG) Urine RBC (0) /HPF Urine WBC (0-4) /HPF Enhanced Crossmatch Short CBC 05/24/21 05/25/21 Range/Units 12:44 05:58 WBC 8.1 6.1 (4.8-10.8) X10*3/uL Hgb 6.1 L* D 9.1 L D (12.0-16.0) g/dl Hct 19.3 L* D 26.4 L D (37.0-47.0) % Plt Count 226 186 (160-400) X10*3/uL BMP 05/24/21 05/25/21 12:44 05:58 Sodium 136 136 Potassium 5.0 D 4.8 Chloride 104 104 Carbon Dioxide 22 21 L BUN 53 H 47 H Creatinine 2.06 H 1.53 H Calcium 8.4 8.5 Liver Function 05/24/21 Range/Units 12:44 Total Bilirubin 0.2 (0.0-1.0) mg/dL AST 14 D (5-31) U/L ALT 20 (0-31) U/L Alkaline Phosphatase 151 H D (39-117) U/L Albumin 3.0 L (3.5-5.0) g/dL Urine 05/24/21 Range/Units 13:05 Urine Color YELLOW Urine Appearance TURBID Urine pH 5.5 (5.0-8.0) Ur Specific [place] 1.020 (1.005-1.025) Urine Protein 2+ H (NEG-TRACE) MG/DL Urine Glucose (UA) NEG (NEG) MG/DL All other labs normal. Assessment and Plan (1) Decubitus ulcer: Status: Acute This appears to be at least a stage III this ulcer with tunneling and undermining. There is note of some nonviable tissue of the skin and subcutaneous layer so I had to gently debride this with scissors to remove this. This was done on the 4 x 3 cm ulcer. Sharp excisional debridement of the skin, subcutaneous fat and part of the muscle was done at bedside using scissors. I applied wet to dry packing and cover this with dry gauze. She should be switch positions 2 hours. It is best if we can avoid her a being on her back for now. She will need very good wound care. She is continent of urine and had some wet sheets surrounding the area so may consider putting Darby catheter. I have discussed the above with the hospitalist service. Procedures Date of Service Date of Service: 05/25/21
[2021-05-25] MEDS: hydrALAZINE HCl 50 MG TABLET PO ×3 (09:05→21:47)
[2021-05-25] MEDS: Ascorbic Acid 500 MG TABLET 1000 MG PO (09:05)
[2021-05-25] MEDS: Cholecalciferol (Vitamin D3) 25 MCG TABLET 250 MCG PO (09:05)
[2021-05-25] MEDS: Ferrous Sulfate 324 MG TABLET.DR PO (09:06)
[2021-05-25] MEDS: 0.9 % Sodium Chloride Flush 3 ML SYRINGE IVFLUSH ×2 (09:06→15:32)
[2021-05-25] MEDS: Aspirin Enteric Coated 81 MG TABLET.DR PO (09:06)
[2021-05-25] MEDS: Multivitamin TABLET 1 TAB PO (09:06)
[2021-05-25] MEDS: lisinopriL 5 MG TABLET PO (09:06)
--- NOTE | 2021-05-25 09:08 | P.PNIM_ITS ---
Subjective Subjective Date of Service: 05/25/21 Interval History: cc: anemia interval history: no active complaints Cardiovascular Cardiovascular: Reports no additional cardiovascular complaints Respiratory Respiratory: Reports no additional respiratory complaints Physical Exam Vital Signs: Vital Signs: Last Vital Signs Temp 97.4 F 05/25/21 08:14 Pulse 81 05/25/21 07:50 Resp 19 05/25/21 07:50 BP 159/70 H 05/25/21 07:50 Pulse Ox 99 05/25/21 07:50 BMI result Body Mass Index 22.8 General: AO X 2, no acute distress Resp: CTA bilateral, no accessory muscles used CVS: S1,S2,RRR GI: soft, non tender, non distended Neuro: motor grossly intact, alert Psych: appropriate affect, imapired insight skin: stage III-IV coccyx ulcer Objective Data Active Medications Acetaminophen (Acetaminophen 325 Mg Tablet) 650 mg PO Q6H PRN PRN Reason: Pain, Mild (Pain Scale 1-3) Amlodipine Besylate (Amlodipine Besylate 10 Mg Tablet) 10 mg PO BEDTIME [facility]; Pr otocol Last Admin: 05/24/21 21:32 Dose: 10 mg Documented by: MIKAYLA Ascorbic Acid (Ascorbic Acid 500 Mg Tablet) 1,000 mg PO DAILY [facility] Aspirin (Aspirin Enteric Coated 81 Mg Tablet.) 81 mg PO DAILY [facility] Calcitonin [place] (Calcitonin,[place],Synth Nasal 3.7 Ml Bottle) 1 spray NOSTRILALT DAILY [facility] Collagenase (Collagenase Clostridium Hist. 30 Gm Tube) 1 appl TOPICAL BID [facility]; Protocol Last Admin: 05/24/21 21:38 Dose: Not Given Documented by: MIKAYLA Non-Admin Reason: Med Not Available Ferrous Sulfate (Ferrous Sulfate 324 Mg Tablet.) 324 mg PO DAILY [facility] Hydralazine HCl (Hydralazine Hcl 50 Mg Tablet) 50 mg PO TID [facility]; Protocol Last Admin: 05/24/21 21:33 Dose: 50 mg Documented by: MIKAYLA Linezolid (Zyvox/D5w) 600 mg in 300 mls @ 300 mls/hr IV Q12H [facility] Last Admin: 05/25/21 06:19 Dose: 300 mls/hr Documented by: MIKAYLA Ceftriaxone Sodium 1 gm/ (Sodium Chloride) 50 mls @ 100 mls/hr IV Q24H [facility] Lisinopril (Lisinopril 5 Mg Tablet) 5 mg PO DAILY [facility]; Protocol Multivitamins/Vitamin C (Multivitamin Tablet) 1 tab PO DAILY [facility] Omeprazole (Omeprazole 20 Mg Capsule.) 20 mg PO DAILY@0630 [facility] Last Admin: 05/25/21 06:19 Dose: 20 mg Documented by: MIKAYLA Sodium Chloride (0.9 % Sodium Chloride Flush 3 Ml Syringe) 3 ml IVFLUSH QSHIFT [facility] Last Admin: 05/24/21 23:46 Dose: 3 ml Documented by: MIKAYLA Tamsulosin HCl (Tamsulosin Hcl 0.4 Mg Capsule) 0.4 mg PO BEDTIME [facility] Last Admin: 05/24/21 21:32 Dose: 0.4 mg Documented by: MIKAYLA Vitamin D (Cholecalciferol (Vitamin D3) 25 Mcg Tablet) 250 mcg PO DAILY [facility] Labs CBC & Chem 7: 05/25/21 05:58 05/25/21 05:58 Labs: Laboratory Results - last 24 hr 05/24/21 05/24/21 05/24/21 12:44 12:44 12:44 MCV 92.3 MCH 29.2 MCHC 31.6 RDW 13.2 Plt Count 226 MPV 9.1 L Immature Gran % (Auto) 0.4 Neut % (Auto) 79.3 H Lymph % (Auto) 12.9 L [place] % (Auto) 4.6 Eos % (Auto) 2.4 Baso % (Auto) 0.4 Lymph # (Auto) 1.0 L [place] # (Auto) 0.4 Eos # (Auto) 0.2 Baso # (Auto) 0.0 Abs Immat Gran (auto) 0.03 Absolute Neuts (auto) 6.4 Absolute Nucleated RBC 0.000 Nucleated RBC % (auto) 0.0 Absolute Retic Percent Retic Immature Retic Fraction Retic Hgb Equivalent PT INR APTT Anion Gap 15 Estim Creat Clear Calc 21.6 Estimated GFR 23 Random Glucose 98 Fasting Glucose Lactic Acid 0.5 Calcium 8.4 Iron TIBC % Saturation Unsat Iron Binding Total Bilirubin 0.2 AST 14 D ALT 20 Alkaline Phosphatase 151 H D Troponin I High Sens B-Natriuretic Peptide Total Protein 5.2 L Albumin 3.0 L Urine Color Urine Appearance Urine pH Ur Specific [place] Urine Protein Urine Glucose (UA) Urine Ketones Urine Blood Urine Nitrite Ur Leukocyte Esterase Urine RBC Urine WBC Ur Squamous Epith Cells Urine Bacteria Stool Occult Blood COVID-19 (GENIE) COVID-19 Clin Com Blood Type Antibody Screen Enhanced Crossmatch 05/24/21 05/24/21 05/24/21 12:44 12:44 12:47 MCV MCH MCHC RDW Plt Count MPV Immature Gran % (Auto) Neut % (Auto) Lymph % (Auto) [place] % (Auto) Eos % (Auto) Baso % (Auto) Lymph # (Auto) [place] # (Auto) Eos # (Auto) Baso # (Auto) Abs Immat Gran (auto) Absolute Neuts (auto) Absolute Nucleated RBC Nucleated RBC % (auto) Absolute Retic Percent Retic Immature Retic Fraction Retic Hgb Equivalent PT INR APTT Anion Gap Estim Creat Clear Calc Estimated GFR Random Glucose Fasting Glucose Lactic Acid Calcium Iron TIBC % Saturation Unsat Iron Binding Total Bilirubin AST ALT Alkaline Phosphatase Troponin I High Sens 6.1 D B-Natriuretic Peptide 77 Total Protein Albumin Urine Color Urine Appearance Urine pH Ur Specific [place] Urine Protein Urine Glucose (UA) Urine Ketones Urine Blood Urine Nitrite Ur Leukocyte Esterase Urine RBC Urine WBC Ur Squamous Epith Cells Urine Bacteria Stool Occult Blood NEGATIVE COVID-19 (GENIE) Negative COVID-19 Clin Com See Note Blood Type Antibody Screen Enhanced Crossmatch 05/24/21 05/24/21 05/24/21 13:05 13:24 13:24 MCV MCH MCHC RDW Plt Count MPV Immature Gran % (Auto) Neut % (Auto) Lymph % (Auto) [place] % (Auto) Eos % (Auto) Baso % (Auto) Lymph # (Auto) [place] # (Auto) Eos # (Auto) Baso # (Auto) Abs Immat Gran (auto) Absolute Neuts (auto) Absolute Nucleated RBC Nucleated RBC % (auto) Absolute Retic Percent Retic Immature Retic Fraction Retic Hgb Equivalent PT 11.8 INR 1.0 APTT 25.7 D Anion Gap Estim Creat Clear Calc Estimated GFR Random Glucose Fasting Glucose Lactic Acid Calcium Iron TIBC % Saturation Unsat Iron Binding Total Bilirubin AST ALT Alkaline Phosphatase Troponin I High Sens B-Natriuretic Peptide Total Protein Albumin Urine Color YELLOW Urine Appearance TURBID Urine pH 5.5 Ur Specific [place] 1.020 Urine Protein 2+ H Urine Glucose (UA) NEG Urine Ketones NEG Urine Blood TRACE Urine Nitrite NEG Ur Leukocyte Esterase 3+ H Urine RBC 10-14 H Urine WBC TNTC H Ur Squamous Epith Cells 1+ Urine Bacteria 3+ Stool Occult Blood COVID-19 (GENIE) COVID-19 Clin Com Blood Type B Positive Antibody Screen NEGATIVE Enhanced Crossmatch See Detail 05/24/21 05/24/21 05/25/21 13:24 13:24 05:58 MCV 91.3 MCH 31.5 MCHC 34.5 RDW 13.4 Plt Count 186 MPV 9.2 L Immature Gran % (Auto) Neut % (Auto) Lymph % (Auto) [place] % (Auto) Eos % (Auto) Baso % (Auto) Lymph # (Auto) [place] # (Auto) Eos # (Auto) Baso # (Auto) Abs Immat Gran (auto) Absolute Neuts (auto) Absolute Nucleated RBC 0.000 Nucleated RBC % (auto) 0.0 Absolute Retic 0.014 L Percent Retic 0.7 Immature Retic Fraction 9.6 Retic Hgb Equivalent 33.3 PT INR APTT Anion Gap Estim Creat Clear Calc Estimated GFR Random Glucose Fasting Glucose Lactic Acid Calcium Iron 130 TIBC 196 L % Saturation 66 H Unsat Iron Binding 66 Total Bilirubin AST ALT Alkaline Phosphatase Troponin I High Sens B-Natriuretic Peptide Total Protein Albumin Urine Color Urine Appearance Urine pH Ur Specific [place] Urine Protein Urine Glucose (UA) Urine Ketones Urine Blood Urine Nitrite Ur Leukocyte Esterase Urine RBC Urine WBC Ur Squamous Epith Cells Urine Bacteria Stool Occult Blood COVID-19 (GENIE) COVID-19 [facility] Com Blood Type Antibody Screen Enhanced Crossmatch 05/25/21 05:58 MCV MCH MCHC RDW Plt Count MPV Immature Gran % (Auto) Neut % (Auto) Lymph % (Auto) [place] % (Auto) Eos % (Auto) Baso % (Auto) Lymph # (Auto) [place] # (Auto) Eos # (Auto) Baso # (Auto) Abs Immat Gran (auto) Absolute Neuts (auto) Absolute Nucleated RBC Nucleated RBC % (auto) Absolute Retic Percent Retic Immature Retic Fraction Retic Hgb Equivalent PT INR APTT Anion Gap 16 Estim Creat Clear Calc 29.1 Estimated GFR 33 Random Glucose Fasting Glucose 88 Lactic Acid Calcium 8.5 Iron TIBC % Saturation Unsat Iron Binding Total Bilirubin AST ALT Alkaline Phosphatase Troponin I High Sens B-Natriuretic Peptide Total Protein Albumin Urine Color Urine Appearance Urine pH Ur Specific [place] Urine Protein Urine Glucose (UA) Urine Ketones Urine Blood Urine Nitrite Ur Leukocyte Esterase Urine RBC Urine WBC Ur Squamous Epith Cells Urine Bacteria Stool Occult Blood COVID-19 (GENIE) COVID-19 Clin Com Blood Type Antibody Screen Enhanced Crossmatch Microbiology Microbiology Results: Microbiology 05/24/21 12:44 Gram Stain - Final Buttock Assessment and Plan (1) Anemia: Status: Acute Plan 81F presented with anemia, worsening pressure ulcer recurrent acute on chronic anemia multifactorial was previously mild hemolysis, chronic blood loss suspect main factor now inflammatory from osteomyelitis, c/w with iron studies with 66% saturation, suppressed TIBC continue ppi hgb improved appropriately status post 2 units prbc in ED 05/24 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 no sepsis history of vre bacteremia, continue zyvox, follow up ID surgery appreciated - debrided at bedside local care bacturia will empirically treat with zyvox and rocephin, follow up cultures paroxysmal afib beta tad stopped last admisison due to bradycardia no AC due to bleeding risk, severe anemia dementia presumed alzheimers aricept stopped for bradycardia PVD will continue asa along with ppi not tolerant of statin, repatha on hold while inpatient htn lisinopril, amlodipine, hydrazine MATILDE on CKD III improved, now back to baseline dvt prophylaxis - mechanical due to sever anemia DNI, not DNR reason for continued hospitalization: patient with singificant pressure ulcer, OM requiring close monitoring and iv abx, high risk for further decompensation due to age and frailty. Quality Stroke Does the patient have a stroke diagnosis?: No VTE Prior VTE?: No VTE Risk Level:: Medical - moderate - high VTE Device Contraindication: N/A - Device Ordered VTE Drug Contraindication: Treatment Not Tolerated
--- NOTE | 2021-05-25 11:21 | P.CDIC_ITS ---
CDI Concurrent Query Documentation Clarification: PHYSICIAN'S DOCUMENTATION REQUEST Date of Query: 05/25/21 1121 Patient Name: Georgina Jamil Admit Date: 05/24/21 Dear Doctor, A review of the medical record indicates additional documentation may be needed. Please review below and update the documentation accordingly. Clinical Indicators: Risk Factors/Clinical Indicators/Treatments PN: Recurrent acute on chronic anemia, multifactorial, was previously hemolysis, chronic blood loss. HGB 6.1 HCT 19.3 Transfused 2 units PRBC Suspect main factor now inflammatory from osteomyelitis, c/w iron studies w 66% saturation. Based on the above, could you clarify in the Progress Notes which of the following is the most likely type of anemia you are evaluating, treating, and/or monitoring? * Acute blood loss anemia * Acute blood loss anemia with baseline chronic anemia (specify type) * Chronic iron deficiency anemia due to acute blood loss * Other ? please specify * Unable to determine Use of terms such as suspected, likely, concern for, or probable (associated with a specific diagnosis that is being evaluated, monitored, or treated as if it exists) are acceptable and can be coded in the inpatient setting, when documented at the time of discharge. Thank you, Denisse Barbour [facility], CDIS Extension: [phone] Please use your independent medical judgment in providing your response. THIS QUERY IS PART OF THE PERMANENT MEDICAL RECORD Provider Response: Other Other Diagnosis: please see note
[2021-05-25 11:45] VITALS: BP 149/67; PULSE 76; RESP 18; TEMP 36.2; O2SAT 100
[2021-05-25] MEDS: Calcitonin,Salmon,Synth Nasal 3.7 ML BOTTLE 1 SPRAY NOSTRILALT (11:51)
--- NOTE | 2021-05-25 14:17 | MHC.CLN ---
NUTRITION PATIENT WITH SIGNIFICANT PRESSURE INJURY TO COCCYX. ADDING ENSURE CLEAR TID. PROVIDES 720 KCAL, 24 G PROTEIN. PATIENT ACCEPTED ENSURE CLEAR DURING MOST RECENT ADMISSION.
[2021-05-25 14:19] VITALS: BMI 22.8
[2021-05-25 15:24] VITALS: BP 182/77; PULSE 79; RESP 18; TEMP 36.2; O2SAT 99
--- NOTE | 2021-05-25 15:38 | W.PM.IDCN ---
History of Present Illness Data of Consult Service Date: 05/25/21 Requesting physician: Lasha Parkinson Primary Care Provider: aWlter Braun MD HPI Reason for consult: sacral ulcer,h/o VRE bacteremia She presents with weakness and found to have anemia. She has also sacral ulcer seen by Surgery and debrided. There was tissue there with no direct bone visualized. She had VRE bacteremia during stay 05/11-05/15 and there was concern ulcer as cause. She was discharged on 21 days linezolid Review of Systems Review of Systems: Yes Unobtainable due to mental status PMFSH Past Medical History Medical History Anemia CHF (congestive heart failure) CLL (chronic lymphocytic leukemia) Coronary artery calcification seen on CAT scan COVID-19 vaccine series completed Dementia Essential hypertension Hx of reduction of closed dislocation Hyperlipidemia NSTEMI (non-ST elevated myocardial infarction) Peripheral artery disease Peripheral vascular disease Pulmonary fibrosis Ulcerative colitis Vertigo VRE bacteremia Family History Family History Father No problems noted. Mother No problems noted. Family history: reviewed and not pertinent Surgical History Surgical History H/O carotid endarterectomy H/O colonoscopy History of hip replacement History of liver biopsy History of revision of total hip arthroplasty Hx of lumbar discectomy S/P popliteal-distal bypass Social History Social History Household Members: Other Household Members Other:: Housing: [facility] Are you a primary acute care physical therapist to a significant other at home: No Do you presently have visiting nurse or other home services: Yes (visiting nurse when was at home) Unable to assess alcohol history related to: Unknown Alcohol intake: never Patient Tobacco Use Status: Never used Tobacco Tobacco use type: Cigarette Years Smoked: 62 e-Cigarette/Vaping Use: Currently Using Second Hand Smoke Exposure: No Advance Directives Date on File: 05/06/20 service: No Current occupational status: retired 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 Meds Allergies Allergy/AdvReac Type Severity Reaction Status Date / Time diazepam [DIAZEPAM] Allergy Severe RASH Verified 04/09/21 15:13 Vulxohv-CMY-NdJ Reductase Allergy Severe Muscle Pain Verified 04/09/21 15:13 Inhibitor [QTGUKXM-DPE-TUC REDUCTASE INHIBITOR] Active Medications: Current Medications Acetaminophen (Acetaminophen 325 Mg Tablet) 650 mg PO Q6H PRN PRN Reason: Pain, Mild (Pain Scale 1-3) Amlodipine Besylate (Amlodipine Besylate 10 Mg Tablet) 10 mg PO BEDTIME [facility]; Protocol Last Admin: 05/24/21 21:32 Dose: 10 mg Documented by: Ascorbic Acid (Ascorbic Acid 500 Mg Tablet) 1,000 mg PO DAILY [facility] Last Admin: 05/25/21 09:05 Dose: 1,000 mg Documented by: Aspirin (Aspirin Enteric Coated 81 Mg Tablet.) 81 mg PO DAILY [facility] Last Admin: 05/25/21 09:06 Dose: 81 mg Documented by: Calcitonin [place] (Calcitonin,[place],Synth Nasal 3.7 Ml Bottle) 1 spray NOSTRILALT DAILY [facility] Last Admin: 05/25/21 11:51 Dose: 1 spray Documented by: Collagenase (Collagenase Clostridium Hist. 30 Gm Tube) 1 appl TOPICAL BID [facility]; Protocol Last Admin: 05/25/21 09:19 Dose: Not Given Documented by: Ferrous Sulfate (Ferrous Sulfate 324 Mg Tablet.) 324 mg PO DAILY [facility] Last Admin: 05/25/21 09:06 Dose: 324 mg Documented by: Hydralazine HCl (Hydralazine Hcl 50 Mg Tablet) 50 mg PO TID [facility]; Protocol Last Admin: 05/25/21 15:31 Dose: 50 mg Documented by: Linezolid (Zyvox/D5w) 600 mg in 300 mls @ 300 mls/hr IV Q12H [facility] Last Infusion: 05/25/21 09:25 Dose: Infused Documented by: Ceftriaxone Sodium 1 gm/ (Sodium Chloride) 50 mls @ 100 mls/hr IV Q24H [facility] Lisinopril (Lisinopril 5 Mg Tablet) 5 mg PO DAILY [facility]; Protocol Last Admin: 05/25/21 09:06 Dose: 5 mg Documented by: Multivitamins/Vitamin C (Multivitamin Tablet) 1 tab PO DAILY [facility] Last Admin: 05/25/21 09:06 Dose: 1 tab Documented by: Omeprazole (Omeprazole 20 Mg Capsule.) 20 mg PO DAILY@0630 [facility] Last Admin: 05/25/21 06:19 Dose: 20 mg Documented by: Sodium Chloride (0.9 % Sodium Chloride Flush 3 Ml Syringe) 3 ml IVFLUSH QSHIFT [facility] Last Admin: 05/25/21 15:32 Dose: 3 ml Documented by: Tamsulosin HCl (Tamsulosin Hcl 0.4 Mg Capsule) 0.4 mg PO BEDTIME [facility] Last Admin: 05/24/21 21:32 Dose: 0.4 mg Documented by: Vitamin D (Cholecalciferol (Vitamin D3) 25 Mcg Tablet) 250 mcg PO DAILY [facility] Last Admin: 05/25/21 09:05 Dose: 250 mcg Documented by: Home Medications Medication Instructions Recorded Confirmed Last Taken Type ascorbic acid (vitamin C) 1,000 mg 1,000 mg PO DAILY tab 03/09/20 05/24/21 04/29/21 History tablet aspirin 81 mg tablet,delayed 81 mg PO DAILY 03/09/20 05/24/21 04/28/21 History release cholecalciferol (vitamin D3) 250 250 mcg PO DAILY 03/09/20 05/24/21 04/29/21 History mcg (10,000 unit) capsule donepezil 10 mg tablet 10 mg PO BEDTIME 03/09/20 05/24/21 04/28/21 History fgszrwfm-axm-qxnds acid 0.4 1 tab PO DAILY 03/09/20 05/24/21 04/29/21 History mg-lycopene 300 mcg-lutein 250 mcg tablet (Centrum Silver) lisinopril 5 mg tablet 1 tab PO DAILY 01/02/21 05/24/21 04/29/21 History Lactobacillus acidophilus 10 10,000 mmu cells PO DAILY 05/07/21 05/24/21 Unknown History billion cell capsule (Probiotic) amlodipine 10 mg tablet 10 mg PO BEDTIME 05/07/21 05/24/21 Unknown History calcitonin (salmon) 200 1 spray INTRANASAL DAILY 05/07/21 05/24/21 Unknown History unit/actuation nasal spray evolocumab 140 mg/mL subcutaneous 140 mg SUBCUT Q2W 05/07/21 05/24/21 05/17/21 History pen injector (Repatha SureClick) ferrous sulfate 325 mg (65 mg 325 mg PO DAILY 05/07/21 05/24/21 Unknown History iron) tablet collagenase clostridium histo. 250 1 appl TOPICAL BID 05/24/21 05/24/21 Unknown History unit/gram topical ointment (Santyl) hydralazine 100 mg tablet 50 mg PO TID 05/24/21 05/24/21 Unknown History tamsulosin 0.4 mg capsule 0.4 mg PO BEDTIME 05/24/21 05/24/21 Unknown History Physical Exam Vital Signs: Vital Signs: Last Vital Signs Temp 97.1 F 05/25/21 15:24 Pulse 79 05/25/21 15:24 Resp 18 05/25/21 15:24 BP 182/77 H 05/25/21 15:24 Pulse Ox 99 05/25/21 15:24 BMI result Body Mass Index 22.8 Const: General: cooperative HEENT: Head: Yes normal to inspection Mouth: Normal oral and palatal mucosa present Resp: Effort & Inspection: normal respiratory effort Cardio: Rate: regular rate Rhythm: regular rhythm GI: Palpation (GI): Soft to palpation and nontender Rectal Exam - Female: other (sacral wound as described) Results Labs CBC & Chem 7: 05/25/21 05:58 05/25/21 05:58 Labs: Short CBC 05/25/21 Range/Units 05:58 WBC 6.1 (4.8-10.8) X10*3/uL Hgb 9.1 L D (12.0-16.0) g/dl Hct 26.4 L D (37.0-47.0) % Plt Count 186 (160-400) X10*3/uL BMP 05/25/21 05:58 Sodium 136 Potassium 4.8 Chloride 104 Carbon Dioxide 21 L BUN 47 H Creatinine 1.53 H Calcium 8.5 Microbiology Microbiology Results: Microbiology 05/24/21 12:47 Blood - Venous Blood Culture - Preliminary No growth after 24 hours. 05/24/21 12:44 Blood - Venous Blood Culture - Preliminary No growth after 24 hours. 05/24/21 Unknown Urine Catheterized - Straight Catheter Urine Culture - Preliminary Gram negative maude 05/24/21 12:44 Buttock Gram Stain - Final 05/24/21 12:44 Buttock Routine Culture - Preliminary Culture in progress. Assessment and Plan (1) Decubitus ulcer: Status: Acute (2) Anemia: Status: Acute (3) Osteomyelitis: Status: Acute There is concern over ulcer,VRE sensitive to linezolid She had prior bacteremia but no endocarditis. Daptomycin has probably limited activity as well Linezolid can cause anemia and cytopenias Plan Can continue linezolid but if anemia doesnt improve would need to try Daptomycin The end date of medication is 06/26/2021 now moved up due to failure to heal.
--- NOTE | 2021-05-25 15:50 | MHC.CM.PN ---
PER PHYSICIAN ROUNDS, AWAITING ID CONSULT. POSSIBLE LT IV ABX
--- NOTE | 2021-05-25 16:44 | MHC.CM.PN ---
PT RECENTLY DISCHARGED TO [facility] FOR STR PER PT AND MINDI MARES, PLAN WILL BE TO RETURN REFERRAL SENT TO [facility], PT IS NOT A BED HOLD BUT THEY WILL FOLLOW FOR READMISSION IMM DELIVERED CURRENT DC PLAN IS RETURN TO [facility] TO CONTINUE STR VIA S
[2021-05-25] MEDS: cefTRIAXone sodium 1 GM in 0.9 % Sodium Chloride 50 ML IV (16:45)
[2021-05-25 19:16] VITALS: BP 169/74; PULSE 83; RESP 18; TEMP 37.4; O2SAT 100
[2021-05-25] MEDS: amLODIPine Besylate 10 MG TABLET PO (21:47)
[2021-05-25] MEDS: Tamsulosin HCL 0.4 MG CAPSULE PO (21:47)
[2021-05-26] VITALS: BP 152/67; PULSE 90; RESP 18; TEMP 36.7; O2SAT 98
[2021-05-26 03:42] VITALS: BP 126/65; PULSE 110; RESP 18; TEMP 37.1; O2SAT 98
[2021-05-26] MEDS: Linezolid/D5W 600 MG/300 ML PIGGYBACK 300 MG IV (05:35)
[2021-05-26] MEDS: Omeprazole 20 MG CAPSULE.DR PO (05:35)
[2021-05-26 06:02] LABS: Hematocrit 27.5 % (37.0-47.0); Hemoglobin 9.1 g/dl (12.0-16.0); Mean Corpuscular HGB Conc 33.1 g/dl (31.0-35.0); Mean Corpuscular Hemoglobin 29.7 pg (27.0-33.0); Mean Corpuscular Volume 89.9 fL (80.0-98.0); Mean Platelet Volume 9.2 fL (9.4-12.3); Platelet Count 211 X10*3/uL (160-400); Red Blood Count 3.06 X10*6/uL (4.20-5.50); Red Cell Distribution Width 13.3 % (11.0-16.0); White Blood Count 6.1 X10*3/uL (4.8-10.8)
[2021-05-26 06:21] LABS: Anion Gap 13 (12-20); Blood Urea Nitrogen 43 mg/dL (9-16); Calcium 8.7 mg/dL (8.4-10.2); Carbon Dioxide 24 mmol/L (22-29); Chloride 101 mmol/L (96-108); Creatinine Clr Calc Pharmacy 31.1; Estimated Glomerular Filt Rate 35; Glucose Fasting 87 mg/dL (60-99); Potassium 4.9 mmol/L (3.3-5.1); Sodium 133 mmol/L (135-145)
[2021-05-26 07:34] VITALS: BP 167/72; PULSE 71; RESP 17; TEMP 36.6; O2SAT 99
--- NOTE | 2021-05-26 09:24 | P.DS_ITS ---
DS: Providers Provider Date of Service: 05/26/21 Date of admission: 05/24/21 18:10 Primary care physician: Walter Braun MD Consults: 05/24/21 15:15 Consult to Wound Care Stat Consulting Provider: Dot Huerta Reason for consultation: decubitus ulcer Has provider been notified: Yes 05/24/21 18:07 Consult to General Surgery Routine Consulting Provider: Ritchie Lofton Reason for consultation: infected pressure ulcer 05/24/21 18:08 Consult to Infectious Diseases Routine Consulting Provider: Elsie Solis Reason for consultation: infected ulcer, uti DS: Diagnosis Discharge Diagnosis (1) Decubitus ulcer: Status: Acute (2) Anemia: Status: Acute (3) Osteomyelitis: Status: Acute DS: Summary Hospital Course Hospital Course: from initial hpi: Chief Complaint: low hgb, worsening coccyx ulcer 81F with multiple recent admissions, sent in from SNF for hgb of 5.7 and worsneing coccyx pressure ulcer. on last admission patient had bradycardia due to coreg and aricept which were disconitnued. course had been complicated by VRE bacteremia of unclear origin. cutlures had cleared, she was being treated with linezolid. patient has also been having recurrent acute on chronic anemia, multifactorial, elements of hemolysis, GI bleed (had erosive duodenitis and gastritis on prior EGD, and inflammatory). she was also evaluated by surgery for her coccyz ulcer, at that time was considered stage II and recommendations were for local care. she was most recently discharged to SNF on 05/15/21, usually am bulates with walker. now returning for labs showing severe anemia of 5.7 and worsening coccyx ulcer. patient herself has poor insight into her medical conditions, but reports no symptoms, she does vaguely remember being sent because of her labs. in ED hgb 6.1, given 2 units prbc, CT a/p showed:?New nondisplaced coccyx fracture since study of May 07, 2021. Cortical break which may be related to the fracture or possible erosion with osteomyelitis about the coccyx present. ? Increase in subcutaneous fat stranding in the region of this ulcer and extending to the sacrum with some gas being present. There also appears to be possible development of a small abscess about the left posterior subcutaneous tissues. UA was also posiibve for bacteria, WBC and nitrites. no evidence of sepsis. hospital course: Patient was admitted for recurrent acute on chronic anemia. Her chronic anemia is multifactorial due to mild monocytosis, chronic blood loss. The acute component is from inflammation from osteomyelitis. This is consistent with the patient's iron studies which showed elevated saturation 66% with suppressed TIBC. Patient was given 2 units of PRBC and hemoglobin improved appropriately, it is 9.1 at discharge. 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 She was seen by surgery who performed debridement at the bedside, recommended wet-to-dry dressings and close wound care. Patient should be ambula remi frequently, avoid prolonged pressure, frequently rotated. Patient used purick catheter in the hospital, if she is incontinent should consider placing indwelling Peacock catheter for skin integrity. Patient was also noted to have bacteriuria, possible UTI, urine culture grew E coli, she is to ceftriaxone and will have 5 more days of cefuroxime. For paroxysmal atrial fibrillation her beta-tad and Aricept were stopped on last admission due to bradycardia, she is not on anticoagulation due to severe recurrent anemia. For her dementia which is presumed Alzheimer's her Aricept has been discontinued due to bradycardia. For her peripheral vascular disease she will continue on aspirin along with a PPI for GI protection, she is not tolerant to statin and is on repatha. for her htn lisinpril, amlodipnie, hydralazine. for her MATILDE on CKD III it improved next day, now back to baseline. patient is now stable for discharge back to SNF. Time Spent with Patient Time attestation: Total time spent providing and/or coordinating discharge services: Discharge coordination time: Greater than 30 minutes Quality: Safe Use of Opioids Does Pt have an Active Cancer Diagnosis on the Problem List?: No Quality: Stroke Does the patient have a stroke diagnosis?: No Physical Exam Vital Signs: Vital Signs: Last Vital Signs Temp 97.8 F 05/26/21 07:34 Pulse 71 05/26/21 07:34 Resp 17 05/26/21 07:34 BP 167/72 H 05/26/21 07:34 Pulse Ox 99 05/26/21 07:34 BMI result Body Mass Index 22.8 General: AO X 2, no acute distress Resp:? CTA bilateral, no accessory muscles used CVS: S1,S2,RRR GI: soft, non tender, non distended Neuro:? motor grossly intact, alert Psych: appropriate affect, imapired insight skin: stage III-IV coccyx ulcer? DS: Data Data Completed and Pending Completed studies during hospitalization [Text1]: Procedures Excision of Stomach, Pylorus, Via Natural or Artificial Opening Endoscopic, Diagnostic (04/29/21) Insertion of Infusion Device into Superior Vena Cava, Percutaneous Approach (05/07/21) Introduction of Vasopressor into Peripheral Vein, Percutaneous Approach (05/07/21) Transfusion of Nonautologous Red Blood Cells into Peripheral Vein, Percutaneous Approach (05/07/21) Labs on day of discharge: Laboratory Results - last 24 hr 05/26/21 05/26/21 05:31 05:31 WBC 6.1 RBC 3.06 L Hgb 9.1 L Hct 27.5 L MCV 89.9 MCH 29.7 MCHC 33.1 RDW 13.3 Plt Count 211 MPV 9.2 L Absolute Nucleated RBC 0.000 Nucleated RBC % (auto) 0.0 Sodium 133 L Potassium 4.9 Chloride 101 Carbon Dioxide 24 Anion Gap 13 BUN 43 H Creatinine 1.43 H Estim Creat Clear Calc 31.1 Estimated GFR 35 Fasting Glucose 87 Calcium 8.7 Preliminary micro results at discharge 05/24/21 12:47 Blood Culture - Preliminary Blood - Venous No growth after 24 hours. 05/24/21 12:44 Blood Culture - Preliminary Blood - Venous No growth after 24 hours. 05/24/21 12:44 Routine Culture - Preliminary Buttock Culture in progress. Discharge Plan Discharge Patient Disposition: Xfer [facility] Discharge Diagnosis: anemia, osteomyelitis, pressure ulcer Referrals: Walter Braun MD [Primary Care Provider] - 1 Week Discharge Medications: New cefuroxime axetil 500 mg tablet 500 mg PO Q12H Qty: 10 0RF Continued lisinopril 5 mg tablet 1 tab PO DAILY 0RF calcitonin (salmon) 200 unit/actuation spray,non-aerosol 1 spray intranasal DAILY 0RF Rx Instructions: alternating nostrils ferrous sulfate 325 mg (65 mg iron) Tablet 325 mg PO DAILY 0RF Probiotic 10 billion cell Capsule 10,000 mmu cells PO DAILY 0RF Repatha SureClick 140 mg/mL Pen Injector 140 mg SUBCUT Q2W 0RF amlodipine 10 mg tablet 10 mg PO BEDTIME 0RF Protocol: Hold for SBP< HOLD for SBP < : 90 omeprazole 20 mg Capsule,Delayed Release(Dr/Ec) 20 mg PO DAILY@0630 Qty: 30 0RF clonazepam 0.5 mg tablet 1 mg PO BEDTIME Qty: 30 0RF tamsulosin 0.4 mg Capsule 0.4 mg PO BEDTIME 0RF Santyl 250 unit/gram Ointment 1 appl TOPICAL BID 0RF hydralazine 100 mg tablet 50 mg PO TID 0RF linezolid 600 mg tablet 600 mg PO Q12H 30 Days Qty: 42 0RF Rx Instructions: started 05/15: total needs to be on x 21 days aspirin 81 mg tablet,delayed release (DR/EC) 81 mg PO DAILY 0RF Hold Instructions: Resume on 05/07/21. cholecalciferol (vitamin D3) 250 mcg (10,000 unit) capsule 250 mcg PO DAILY 0RF ascorbic acid (vitamin C) 1,000 mg tablet 1,000 mg PO DAILY 0RF Centrum Silver 0.4-300-250 mg-mcg-mcg tablet 1 tab PO DAILY 0RF Discontinued donepezil 10 mg tablet 10 mg PO BEDTIME 0RF Discharge Orders: Discharge Order (Routine); Ordered 05/26/21 Ordered By: Lasha Parkinson Diet: advance to usual diet Activity on Discharge: As tolerated Stand Alone Forms: Patient Portal Discharge page Care Plan Goals: healing of ulcer, maintaining hgb Health Concerns: anemia, osteomyelitis, pressure ulcer Plan of Treatment: anemia is likely inflammatory, treat underlying illness, may need occasional transfusion for osteo and stage III-IV sacral/coccxy ulcer: zyvox until 06/26/21, it is imperative that she is ambulated and rotated, avoid pressure on wound, dress wound with wet to dry dressing, follow up with wound care. if patient is incontinent consider peacock catheter for protection of skin integrity. 5 more days of ceftin for uti Assessment: see above
[2021-05-26] MEDS: hydrALAZINE HCl 50 MG TABLET PO ×2 (10:15→15:17)
[2021-05-26] MEDS: Ascorbic Acid 500 MG TABLET 1000 MG PO (10:15)
[2021-05-26] MEDS: lisinopriL 5 MG TABLET PO (10:16)
[2021-05-26] MEDS: Multivitamin TABLET 1 TAB PO (10:16)
[2021-05-26] MEDS: Ferrous Sulfate 324 MG TABLET.DR PO (10:16)
[2021-05-26] MEDS: Aspirin Enteric Coated 81 MG TABLET.DR PO (10:17)
[2021-05-26] MEDS: Cholecalciferol (Vitamin D3) 25 MCG TABLET 250 MCG PO (10:17)
[2021-05-26] MEDS: Calcitonin,Salmon,Synth Nasal 3.7 ML BOTTLE 1 SPRAY NOSTRILALT (10:19)
[2021-05-26] MEDS: 0.9 % Sodium Chloride Flush 3 ML SYRINGE IVFLUSH ×2 (10:41→15:19)
[2021-05-26 11:49] VITALS: BP 142/66; PULSE 85; RESP 18; TEMP 36.3; O2SAT 100
--- NOTE | 2021-05-26 11:58 | MHC.CM.PN ---
PLAN IS FOR PATIENT TO RETURN TO [facility] PENDING P.T. EVAL, NEG COVID PCR TEST, AND COMPLETED DC SUMMARY FACILITY REQUESTS A 1700 DC. RN AND UNIT AWARE OF PLAN. SPOUSE (IN ROOM) ALSO AWARE OF PLAN. ANY CHANGES, THIS OIL HEATER INSTALLER TO CALL SPOUSE, MINDI @ [phone]
[2021-05-26 12:12] VITALS: BP 142/66; PULSE 85; O2SAT 100
[2021-05-26 12:33] LABS: Influenza A PCR NEGATIVE (Negative); Influenza B PCR NEGATIVE (Negative); Resp Syncy Virus RNA Qual PCR NEGATIVE (Negative); SARS COV2 PCR INHOUSE NEGATIVE (Negative)
--- NOTE | 2021-05-26 12:56 | MHC.CM.PN ---
CALL TO [facility] ([phone]) SCHEDULED TRANSPORT TO ARRIVE FOR 1600 PER DISCUSSION. UNIT, RN, PATIENT, AND SPOUSE (IN ROOM) AWARE OF PLAN.
[2021-05-26 15:27] VITALS: BP 145/64; PULSE 90; RESP 17; TEMP 36.1; O2SAT 99
== END 2021-05-26 18:04 | disposition skilled nursing facility (03) | DRG 580 ==
LOC: HO.ED 17:46 → HO.EDOVER 18:13 → HO.S3 19:13
PROVIDERS: Physician Assistant; Admitting Provider Internal Medicine; Emergency Provider Emergency Medicine; PCP Family Medicine; Visit Provider Internal Medicine
DX: L89.154 Pressure ulcer of sacral region, stage 4 (principal); C91.10 Chronic lymphocytic leukemia of B-cell type not having achieved remission; M86.9 Osteomyelitis, unspecified; N39.0 Urinary tract infection, site not specified; Z96.643 Presence of artificial hip joint, bilateral; E78.5 Hyperlipidemia, unspecified; D63.1 Anemia in chronic kidney disease; I12.9 Hypertensive chronic kidney disease with stage 1 through stage 4 chronic kidney disease, or unspecified chronic kidney disease; D50.0 Iron deficiency anemia secondary to blood loss (chronic); G30.9 Alzheimer's disease, unspecified; I48.0 Paroxysmal atrial fibrillation; B96.20 Unspecified Escherichia coli [E. coli] as the cause of diseases classified elsewhere; N18.30 Chronic kidney disease, stage 3 unspecified; F02.80 Dementia in other diseases classified elsewhere, unspecified severity, without behavioral disturbance, psychotic disturbance, mood disturbance, and anxiety; Z87.440 Personal history of urinary (tract) infections; Z20.822 Contact with and (suspected) exposure to COVID-19; I25.2 Old myocardial infarction; Z79.82 Long term (current) use of aspirin; Z79.899 Other long term (current) drug therapy
CPT/HCPCS: 0241U; 36415; 36430; 71045; 74176; 80048; 80053; 81001; 82272; 83540; 83605; 83880; 84484; 85025; 85027; 85045; 85610; 85730; 86850; 86900; 86901; 86920; 86921; 87040; 87071; 87077; 87086; 87088; 87186; 87205; 87635; 93005; 96365; 97162; 99285; J0696; J2020; P9016

== ENCOUNTER → 2021-06-04 15:31 | Outpatient (BNVA) | payer MEDICARE, SELFPAY | PROVIDERS: Visit Provider Internal Medicine | DX: M86.9 Osteomyelitis, unspecified (principal); D64.9 Anemia, unspecified; L89.90 Pressure ulcer of unspecified site, unspecified stage | CPT/HCPCS: 99202 ==

== ENCOUNTER 2021-06-04 16:10 | Inpatient (IN) | payer MEDICARE, SELFPAY ==
[2021-06-04 16:50] VITALS: BP 121/45; PULSE 87; RESP 18; TEMP 36.3; O2SAT 100; BMI 18.3
[2021-06-04] MEDS: Acetaminophen 325 MG TABLET 650 MG PO (16:59)
--- NOTE | 2021-06-04 17:40 | ED_ITS ---
HPI - General Adult General Chief complaint: General Medical Stated complaint: abnormal labs Time Seen by Provider: 06/04/21 17:40 Source: patient Mode of arrival: ambulatory Limitations: no limitations History of Present Illness HPI narrative: Patient with history of anemia of chronic disease , hypertension, hyper lipidemia, CLL, peripheral vascular disease, pulmonary fibrosis, ulcerative colitis, dementia sent from rehab as blood was done today and told that she has anemia and need blood transfusion patient denies any complaint no shortness of breath no chest pain or palpitation no black stools patient had endoscopy on 05/11 which showed erosive gastritis Related Data Home Medications Medication Instructions Recorded Confirmed ascorbic acid (vitamin C) 1,000 mg 1,000 mg PO DAILY tab 03/09/20 06/04/21 tablet aspirin 81 mg tablet,delayed 81 mg PO DAILY 03/09/20 06/04/21 release cholecalciferol (vitamin D3) 250 250 mcg PO DAILY 03/09/20 06/04/21 mcg (10,000 unit) capsule wjprjdxa-wrp-xrbfl acid 0.4 1 tab PO DAILY 03/09/20 06/04/21 mg-lycopene 300 mcg-lutein 250 mcg tablet (Centrum Silver) lisinopril 5 mg tablet 1 tab PO DAILY 01/02/21 06/04/21 Lactobacillus acidophilus 10 10,000 mmu cells PO DAILY 05/07/21 06/04/21 billion cell capsule (Probiotic) amlodipine 10 mg tablet 10 mg PO BEDTIME 05/07/21 06/04/21 calcitonin (salmon) 200 1 spray INTRANASAL DAILY 05/07/21 06/04/21 unit/actuation nasal spray evolocumab 140 mg/mL subcutaneous 140 mg SUBCUT Q2W 05/07/21 06/04/21 pen injector (Repatha SureLevarick) ferrous sulfate 325 mg (65 mg 325 mg PO DAILY 05/07/21 06/04/21 iron) tablet collagenase clostridium histo. 250 1 appl TOPICAL BID 05/24/21 06/04/21 unit/gram topical ointment (Santyl) hydralazine 100 mg tablet 50 mg PO TID 05/24/21 06/04/21 tamsulosin 0.4 mg capsule 0.4 mg PO BEDTIME 05/24/21 06/04/21 Previous Rx's Medication Instructions Recorded clonazepam 0.5 mg tablet 1 mg PO BEDTIME #30 tab 05/15/21 omeprazole 20 mg capsule,delayed 20 mg PO DAILY@0630 #30 cap 05/15/21 release cefuroxime axetil 500 mg tablet 500 mg PO Q12H #10 tab 05/26/21 linezolid 600 mg tablet 600 mg PO Q12H 30 Days #42 tab 05/26/21 Allergies Allergy/AdvReac Type Severity Reaction Status Date / Time diazepam [DIAZEPAM] Allergy Severe RASH Verified 06/04/21 16:56 Emhccdy-GTH-QdH Reductase Allergy Severe Muscle Pain Verified 06/04/21 15:41 Inhibitor [JBCLFWE-MFW-FDW REDUCTASE INHIBITOR] Review of Systems Review of Systems: Yes all other systems are reviewed and are negative [facility] Past Medical History Medical History Anemia CHF (congestive heart failure) CLL (chronic lymphocytic leukemia) Coronary artery calcification seen on CAT scan COVID-19 vaccine series completed Dementia Essential hypertension Hx of reduction of closed dislocation Hyperlipidemia NSTEMI (non-ST elevated myocardial infarction) Peripheral artery disease Peripheral vascular disease Pulmonary fibrosis Ulcerative colitis Vertigo VRE bacteremia Surgical History H/O carotid endarterectomy H/O colonoscopy History of hip replacement History of liver biopsy History of revision of total hip arthroplasty Hx of lumbar discectomy S/P popliteal-distal bypass Family History Family History Father No problems noted. Mother No problems noted. Social History Social History Household Members: Other Household Members Other:: Housing: Halfway Are you a primary acute care nursing assistant to a significant other at home: No Do you presently have visiting nurse or other home services: Yes (visiting felecia se when was at home) Unable to assess alcohol history related to: Unknown Alcohol intake: never Patient Tobacco Use Status: Never used Tobacco Tobacco use type: Cigarette Years Smoked: 62 e-Cigarette/Vaping Use: Currently Using Second Hand Smoke Exposure: No Advance Directives: Yes Advance Directives on File: Yes Advance Directives Date on File: 05/06/20 service: No Current occupational status: retired 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 Physical Exam ED Vital Signs: Vital Signs - 24 hr 06/04/21 16:50 06/04/21 17:41 06/04/21 21:25 Temperature 97.4 F 98.6 F 97.5 F Pulse Rate 87 76 86 Respiratory Rate 18 16 14 Blood Pressure 121/45 L 157/59 H 161/60 H Pulse Oximetry 100 100 06/04/21 21:42 06/04/21 22:58 Temperature 98.4 F 97.7 F Pulse Rate 70 68 Respiratory Rate 14 16 Blood Pressure 161/60 H 177/69 H Pulse Oximetry 100 BMI result Body Mass Index 18.3 Appearance: Alert. Oriented X2. No acute distress. Eyes: Pale+++ ENT: Pharynx normal. Oral Mucosa moist Neck: Normal inspection. Neck supple. CVS: Normal heart rate and rhythm. Pulses normal. Respiratory: No respiratory distress. Equal air entry bilateral, no wh eezing/rales/rhonchi Abdomen: Soft and nontender. Bowel sounds are present, no mass palpable, no CVA tenderness Rectal; dark color stool, guaic positive Skin: Skin warm and dry. Pallor++. Normal skin turgor. Extremities: No lower extremity edema. No calf tenderness Neuro: Oriented X 3. No motor deficit. No sensory deficit.No cerebellar signs , cranial nerves II-XII intact Medical Decision Making MDM Narrative Medical decision making narrative: Patient has significant anemia guaiac positive for occult blood had recent endoscopy which shows erosive gastritis will start patient on Protonix blood transfusion plan to admit. Her lab work also showed slightly elevated creatinine to 1.67 , BUN 65 and potassium of 5.9 will give her Kayexalate Medical Records Medical records reviewed: Yes I reviewed the patient's medical records. Lab Data Lab results reviewed: Yes I reviewed the patient's lab results. Result diagrams: 06/04/21 17:55 06/04/21 17:55 Labs: Lab Results 06/04/21 06/04/21 06/04/21 Range/Units 17:55 17:55 17:55 WBC 7.5 (4.8-10.8) X10*3/uL RBC 2.13 L D (4.20-5.50) X10*6/uL Hgb 6.4 L* D (12.0-16.0) g/dl Hct 19.3 L* D (37.0-47.0) % MCV 90.6 (80.0-98.0) fL MCH 30.0 (27.0-33.0) pg MCHC 33.2 (31.0-35.0) g/dl RDW 13.3 (11.0-16.0) % Plt Count 180 (160-400) X10*3/uL MPV 9.2 L (9.4-12.3) fL Immature Gran % (Auto) 0.4 (0.0-0.4) % Neut % (Auto) 70.6 (45-73) % Lymph % (Auto) 12.1 L (20-40) % Cross % (Auto) 14.9 H (2-11) % Eos % (Auto) 1.5 (0-4) % Baso % (Auto) 0.5 (0-2) % Lymph # (Auto) 0.9 L (1.2-4.9) X10*3/uL Cross # (Auto) 1.1 (0.1-1.2) X10*3/uL Eos # (Auto) 0.1 (0.0-0.4) X10*3/uL Baso # (Auto) 0.0 (0.0-0.2) X10*3/uL Abs Immat Gran (auto) 0.03 (0.00-0.03) X10*3/uL Absolute Neuts (auto) 5.3 (2.0-8.3) x10*3/uL Absolute Nucleated RBC 0.000 (0.0-0.012) X10*3/uL Nucleated RBC % (auto) 0.0 (0.0-0.2) /100WBC Sodium 133 L (135-145) mmol/L Potassium 5.9 H D (3.3-5.1) mmol/L Chloride 103 (96-108) mmol/L Carbon Dioxide 20 L (22-29) mmol/L Anion Gap 16 (12-20) BUN 65 H D (9-16) mg/dL Creatinine 1.67 H (0.5-1.4) mg/dL Estim Creat Clear Calc 22.9 Estimated GFR 29 Random Glucose 113 (60-115) mg/dL Calcium 8.5 (8.4-10.2) mg/dL Total Bilirubin < 0.2 (0.0-1.0) mg/dL AST 16 (5-31) U/L ALT 19 (0-31) U/L Alkaline Phosphatase 131 H (39-117) U/L Total Protein 5.3 L (6.5-8.0) g/dL Albumin 3.0 L (3.5-5.0) g/dL Stool Occult Blood (NEGATIVE) COVID-19 (GENIE) (Negative) COVID-19 Clin Com Blood Type B Positive Antibody Screen NEGATIVE Antibody Identification Negative Enhanced Crossmatch See Detail 06/04/21 06/04/21 Range/Units 20:25 22:44 WBC (4.8-10.8) X10*3/uL RBC (4.20-5.50) X10*6/uL Hgb (12.0-16.0) g/dl Hct (37.0-47.0) % MCV (80.0-98.0) fL MCH (27.0-33.0) pg MCHC (31.0-35.0) g/dl RDW (11.0-16.0) % Plt Count (160-400) X10*3/uL MPV (9.4-12.3) fL Immature Gran % (Auto) (0.0-0.4) % Neut % (Auto) (45-73) % Lymph % (Auto) (20-40) % Cross % (Auto) (2-11) % Eos % (Auto) (0-4) % Baso % (Auto) (0-2) % Lymph # (Auto) (1.2-4.9) X10*3/uL Cross # (Auto) (0.1-1.2) X10*3/uL Eos # (Auto) (0.0-0.4) X10*3/uL Baso # (Auto) (0.0-0.2) X10*3/uL Abs Immat Gran (auto) (0.00-0.03) X10*3/uL Absolute Neuts (auto) (2.0-8.3) x10*3/uL Absolute Nucleated RBC (0.0-0.012) X10*3/uL Nucleated RBC % (auto) (0.0-0.2) /100WBC Sodium (135-145) mmol/L Potassium (3.3-5.1) mmol/L Chloride (96-108) mmol/L Carbon Dioxide (22-29) mmol/L Anion Gap (12-20) BUN (9-16) mg/dL Creatinine (0.5-1.4) mg/dL Estim Creat Clear Calc Estimated GFR Random Glucose (60-115) mg/dL Calcium (8.4-10.2) mg/dL Total Bilirubin (0.0-1.0) mg/dL AST (5-31) U/L ALT (0-31) U/L Alkaline Phosphatase (39-117) U/L Total Protein (6.5-8.0) g/dL Albumin (3.5-5.0) g/dL Stool Occult Blood POSITIVE (NEGATIVE) COVID-19 (GENIE) Negative (Negative) COVID-19 Clin Com See Note Blood Type Antibody Screen Antibody Identification Enhanced Crossmatch ECG Data Attestation: I personally reviewed and interpreted this ECG as follows: Discharge Plan Discharge Clinical Impression: Severe anemia, GI bleed, MATILDE (acute kidney injury) Patient Disposition: Admitted As Inpatient
[2021-06-04 17:41] VITALS: BP 157/59; PULSE 76; RESP 16; TEMP 37; O2SAT 100
[2021-06-04 18:02] LABS: Basophils Percent Auto 0.5 % (0-2); Eosinophils Absolute Auto 0.1 X10*3/uL (0.0-0.4); Eosinophils Percent Auto 1.5 % (0-4); Imm Gran Abs Auto 0.03 X10*3/uL (0.00-0.03); Imm Gran Pct Auto 0.4 % (0.0-0.4); Lymphocytes Absolute Auto 0.9 X10*3/uL (1.2-4.9); Lymphocytes Percent Auto 12.1 % (20-40); MANUAL DIFF FLAG NO; Mean Corpuscular HGB Conc 33.2 g/dl (31.0-35.0); Mean Corpuscular Volume 90.6 fL (80.0-98.0); Mean Platelet Volume 9.2 fL (9.4-12.3); Monocytes Absolute Auto 1.1 X10*3/uL (0.1-1.2); Monocytes Percent Auto 14.9 % (2-11); Neutrophils Absolute Auto 5.3 x10*3/uL (2.0-8.3); Neutrophils Percent Auto 70.6 % (45-73); Platelet Count 180 X10*3/uL (160-400); Red Blood Count 2.13 X10*6/uL (4.20-5.50); Red Cell Distribution Width 13.3 % (11.0-16.0); White Blood Count 7.5 X10*3/uL (4.8-10.8)
[2021-06-04 18:06] LABS: Hematocrit 19.3 % (37.0-47.0); Hemoglobin 6.4 g/dl (12.0-16.0)
[2021-06-04 18:18] LABS: Alanine Aminotransferase 19 U/L (0-31); Alkaline Phosphatase 131 U/L (39-117); Anion Gap 16 (12-20); Aspartate Amino Transferase 16 U/L (5-31); Bilirubin Total < 0.2 mg/dL (0.0-1.0); Blood Urea Nitrogen 65 mg/dL (9-16); Calcium 8.5 mg/dL (8.4-10.2); Carbon Dioxide 20 mmol/L (22-29); Chloride 103 mmol/L (96-108); Creatinine Clr Calc Pharmacy 22.9; Estimated Glomerular Filt Rate 29; Glucose Random 113 mg/dL (60-115); Potassium 5.9 mmol/L (3.3-5.1); Sodium 133 mmol/L (135-145); Total Protein 5.3 g/dL (6.5-8.0)
[2021-06-04 20:32] LABS: OBS Int Ctl Valid YES; OBS1 POSITIVE (NEGATIVE)
[2021-06-04 21:25] VITALS: BP 161/60; PULSE 86; RESP 14; TEMP 36.4
--- NOTE | 2021-06-04 21:30 | PHA.MEDREC ---
Pharmacy Consult ? Medication Reconciliation Pharmacy has completed the medication reconciliation.
[2021-06-04] MEDS: Pantoprazole Sodium 40 MG/10 ML VIAL IVPUSH (21:36)
[2021-06-04 21:42] VITALS: BP 161/60; PULSE 70; RESP 14; TEMP 36.9
--- NOTE | 2021-06-04 22:25 | ECG_ITS ---
Test Reason : ANEMIA Blood Pressure : / mmHG Vent. Rate : 071 BPM Atrial Rate : 071 BPM P-R Int : 176 ms QRS Dur : 076 ms QT Int : 400 ms P-R-T Axes : 012 068 070 degrees QTc Int : 434 ms Sinus rhythm with marked sinus arrhythmia Minimal voltage criteria for LVH, may be normal variant ( Powell product ) Borderline ECG When compared with ECG of 24-MAY-2021 12:30, No significant change was found Referred By: Payam Pradhan Electronically Signed By:Luis Alberto Hair
[2021-06-04] MEDS: Sodium Polystyrene Sulfon/Sorb 15 GM/60 ML ORAL.SUSP 30 GM PO (22:41)
[2021-06-04 22:58] VITALS: BP 177/69; PULSE 68; RESP 16; TEMP 36.5; O2SAT 100
--- NOTE | 2021-06-04 23:07 | P.HPHOSP_ITS ---
History of Present Illness Date of Service: 06/04/21 Chief Complaint: Anemia 81-year-old female with a past medical history of hypertension, hyperlipidemia, CAD, peripheral vascular disease, paroxysmal AFib, CKD, anemia, dementia, recent history of UTI-finished course of antibiotics; decubitus ulcer/VRE bacteremia on Zyvox until 06/26/2021; pulmonary fibrosis, ulcerative colitis, CLL presented to the hospital from the rehab with a chief complaint of anemia. Patient is a poor historian. Most of the history obtained from the records. Patient is alert awake and pleasantly lying in the bed; denies any pain, nausea vomiting, abdominal discomfort, fever chills or cough. Patient denies any chest pain or palpitations. Denies any shortness of breath or dyspnea on exertion. Review of all other systems is limited. ER course: Per ER team patient on presentation noted to have hemoglobin of 6.4; stool guai ac was positive; patient was being ordered for 2 units of blood transfusion. Admitted to the hospital for further management [facility] Medical History Anemia CHF (congestive heart failure) CLL (chronic lymphocytic leukemia) Coronary artery calcification seen on CAT scan COVID-19 vaccine series completed Dementia Essential hypertension Hx of reduction of closed dislocation Hyperlipidemia NSTEMI (non-ST elevated myocardial infarction) Peripheral artery disease Peripheral vascular disease Pulmonary fibrosis Ulcerative colitis Vertigo VRE bacteremia Family History Father No problems noted. Mother No problems noted. Surgical History H/O carotid endarterectomy H/O colonoscopy History of hip replacement History of liver biopsy History of revision of total hip arthroplasty Hx of lumbar discectomy S/P popliteal-distal bypass Social History Household Members: Other Household Members Other:: Housing: Group Home Are you a primary medicare biller to a significant other at home: No Do you presently have visiting nurse or other home services: Yes (visiting nurse when was at home) Unable to assess alcohol history related to: Unknown Alcohol intake: never Patient Tobacco Use Status: Never used Tobacco Tobacco use type: Cigarette Years Smoked: 62 e-Cigarette/Vaping Use: Currently Using Second Hand Smoke Exposure: No Advance Directives: Yes Advance Directives on File: Yes Advance Directives Date on File: 05/06/20 service: No Current occupational status: retired 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 Meds Allergies Allergy/AdvReac Type Severity Reaction Status Date / Time diazepam [DIAZEPAM] Allergy Severe RASH Verified 06/04/21 16:56 Ralgqfw-XDV-NyL Reductase Allergy Severe Muscle Pain Verified 06/04/21 15:41 Inhibitor [EODAYJB-FHF-YUR REDUCTASE INHIBITOR] Active Medications: Current Medications Acetaminophen (Acetaminophen 325 Mg Tablet) 650 mg PO Q6H PRN PRN Reason: Pain, Mild (Pain Scale 1-3) Dextrose/Sodium Chloride (D5ns) 1,000 mls @ 50 mls/hr IVCONT .Q20H BEAR Melatonin (Melatonin 3 Mg Tablet) 6 mg PO BEDTIME PRN PRN Reason: Insomnia Pantoprazole Sodium (Pantoprazole Sodium 40 Mg/10 Ml Vial) 40 mg IVPUSH DAILY@0630 [facility] Senna (Sennosides 8.6 Mg Tablet) 17.2 mg PO BEDTIME PRN PRN Reason: Constipation Sodium Chloride (0.9 % Sodium Chloride Flush 3 Ml Syringe) 3 ml IVFLUSH QSHIFT [facility] Home Medications Medication Instructions Recorded Confirmed Last Taken Type ascorbic acid (vitamin C) 1,000 mg 1,000 mg PO DAILY tab 03/09/20 06/04/21 04/29/21 History tablet aspirin 81 mg tablet,delayed 81 mg PO DAILY 03/09/20 06/04/21 04/28/21 History release cholecalciferol (vitamin D3) 250 250 mcg PO DAILY 03/09/20 06/04/21 04/29/21 History mcg (10,000 unit) capsule sqxzggsj-auc-znfhj acid 0.4 1 tab PO DAILY 03/09/20 06/04/21 04/29/21 History mg-lycopene 300 mcg-lutein 250 mcg tablet (Centrum Silver) lisinopril 5 mg tablet 1 tab PO DAILY 01/02/21 06/04/21 04/29/21 History Lactobacillus acidophilus 10 10,000 mmu cells PO DAILY 05/07/21 06/04/21 Unknown History billion cell capsule (Probiotic) amlodipine 10 mg tablet 10 mg PO BEDTIME 05/07/21 06/04/21 Unknown History calcitonin (salmon) 200 1 spray INTRANASAL DAILY 05/07/21 06/04/21 Unknown History unit/actuation nasal spray evolocumab 140 mg/mL subcutaneous 140 mg SUBCUT Q2W 05/07/21 06/04/21 05/17/21 History pen injector (Sheree Madrigla) ferrous sulfate 325 mg (65 mg 325 mg PO DAILY 05/07/21 06/04/21 Unknown History iron) tablet collagenase clostridium histo. 250 1 appl TOPICAL BID 05/24/21 06/04/21 Unknown History unit/gram topical ointment (Santyl) hydralazine 100 mg tablet 50 mg PO TID 05/24/21 06/04/21 Unknown History tamsulosin 0.4 mg capsule 0.4 mg PO BEDTIME 05/24/21 06/04/21 Unknown History Physical Exam Vital Signs and Narrative: Vital Signs: Last Vital Signs Temp 97.7 F 06/04/21 22:58 Pulse 68 06/04/21 22:58 Resp 16 06/04/21 22:58 BP 177/69 H 06/04/21 22:58 Pulse Ox 100 06/04/21 22:58 BMI result Body Mass Index 18.3 Gen: Appears be in no acute distress HEENT: NCAT, Moist mucosa. Pulmonary: Vesicular breath sounds, fair air entry CVS: Normal S1-S2 Abdomen: BS+, Soft, Nontender Extremities: Warm well perfused Neuro: Alert and awake. Decubitus ulcer as noted in the picture below Results Labs CBC and Chem 7: 06/04/21 17:55 06/04/21 17:55 Labs: Laboratory Results - last 24 hr 06/04/21 06/04/21 06/04/21 17:55 17:55 17:55 MCV 90.6 MCH 30.0 MCHC 33.2 RDW 13.3 Plt Count 180 MPV 9.2 L Immature Gran % (Auto) 0.4 Neut % (Auto) 70.6 Lymph % (Auto) 12.1 L [place] % (Auto) 14.9 H Eos % (Auto) 1.5 Baso % (Auto) 0.5 Lymph # (Auto) 0.9 L [place] # (Auto) 1.1 Eos # (Auto) 0.1 Baso # (Auto) 0.0 Abs Immat Gran (auto) 0.03 Absolute Neuts (auto) 5.3 Absolute Nucleated RBC 0.000 Nucleated RBC % (auto) 0.0 Anion Gap 16 Estim Creat Clear Calc 22.9 Estimated GFR 29 Random Glucose 113 Calcium 8.5 Total Bilirubin < 0.2 AST 16 ALT 19 Alkaline Phosphatase 131 H Total Protein 5.3 L Albumin 3.0 L Stool Occult Blood Blood Type B Positive Antibody Screen NEGATIVE Antibody Identification Negative Enhanced Crossmatch See Detail 06/04/21 20:25 MCV MCH MCHC RDW Plt Count MPV Immature Gran % (Auto) Neut % (Auto) Lymph % (Auto) [place] % (Auto) Eos % (Auto) Baso % (Auto) Lymph # (Auto) [place] # (Auto) Eos # (Auto) Baso # (Auto) Abs Immat Gran (auto) Absolute Neuts (auto) Absolute Nucleated RBC Nucleated RBC % (auto) Anion Gap Estim Creat Clear Calc Estimated GFR Random Glucose Calcium Total Bilirubin AST ALT Alkaline Phosphatase Total Protein Albumin Stool Occult Blood POSITIVE Blood Type Antibody Screen Antibody Identification Enhanced Crossmatch Assessment and Plan (1) GI bleed: Status: Acute (2) Anemia: Status: Acute (3) Decubitus ulcer: Status: Acute Plan 81-year-old female with a past medical history of hypertension, hyperlipidemia, CAD, peripheral vascular disease, paroxysmal AFib, CKD, anemia, dementia, recent history of UTI-finished course of antibiotics; decubitus ulcer/VRE bacteremia on Zyvox until 06/26/2021; pulmonary fibrosis, ulcerative colitis, CLL presented to the hospital from the rehab with a chief complaint of anemia. Noted to have guaiac-positive stool. Admitted for further management. Anemia: Patient's hemoglobin on presentation noted to be 6.4. Stool guaiac was positive(? Confounded by iron supplementation) IV PPI Patient being transfused 2 units of blood-ordered in the ER Gastroenterology consult Hold aspirin Decubitus ulcer on coccyx/history of VRE bacteremia-patient on Zyvox-last day 06/26/2021 Per recent ID consult inputs- Can continue linezolid but if anemia doesnt improve would need to try Daptomycin Patient presented with anemia-will re-consult ID for further recommendations. Continue Zyvox for now. History of hypertension: Continue home amlodipine, hydralazine History of chronic kidney disease: Creatinine at baseline. History of peripheral vascular disease: Patient did not tolerate statin. Aspirin on hold secondary to anemia. Patient also on Repatha at home. History of paroxysmal AFib: Rate controlled. Not on anticoagulation secondary t o anemia. Not on beta-tad secondary to bradycardia DVT prophylaxis: SCD boots Code status: DNI only. Not DNR. As noted in the prior records. Will also defer to the day team to confirm Code status. Quality Stroke Does the patient have a stroke diagnosis?: No VTE Prior VTE?: No VTE Risk Level:: Medical - moderate - high VTE Device Contraindication: N/A - Device Ordered VTE Drug Contraindication: Treatment Not Indicated
[2021-06-04 23:14] LABS: COVID-19 Test Negative (Negative); IDNOW Serial# 16C4AD1C
[2021-06-04 23:55] VITALS: BP 174/61; PULSE 50; RESP 16; TEMP 36.8; O2SAT 99
[2021-06-05] VITALS (9 sets, daily range): BP systolic 157–197; BP diastolic 59–80; PULSE 65–84; RESP 14–20; TEMP 36.4–37.2; O2SAT 97–99
[2021-06-05] MEDS: Dextrose 5 % and 0.9 % NaCl 1,000 ML 50 ML IVCONT ×2 (00:38→20:49)
--- NOTE | 2021-06-05 05:16 | PC.NURSE ---
I assumed nursing care of Georgina at 1900. Georgina is being admitted to [facility] for anemia. Since I assumed care she has been alert, very forgetful. She is oriented to person, not to place or times. She requires frequent reminding about where she is. She makes eye contact with RN and has remained calm and cooperative. respirations are non-labored, room air sats are WNL, no cyanosis, she speaks in full sentences. She denies nausea, no vomiting. She presents with a urinary catheter placed to a leg bag. She prefers to keep the leg bag at this time - it has been draining clear yellow urine. Since I assumed care Georgina has received 2U PRBC's without incident. She has taken PO food and fluids without difficulty, has been NPO since midnight. THe pt presented to the ED with a very large, unstageable wound to her coccyx. When I assumed care there was a dry dressing that was fal;ling off of her. I had the pt turn and I removed the dressing and obtained photos of the wound and TigerTexted them to hospitalist Varun who will submit the photos to the patients' chart. A new dry dressing was placed over this wound and the pt has continuously been positioned off of her coccyx. We will continue to monitor Georgina.
[2021-06-05] MEDS: Pantoprazole Sodium 40 MG/10 ML VIAL IVPUSH (06:12)
[2021-06-05] MEDS: Omeprazole 20 MG CAPSULE.DR PO (06:12)
[2021-06-05 07:23] LABS: MANUAL DIFF FLAG NO
[2021-06-05 07:26] LABS: Basophils Absolute Auto 0.1 X10*3/uL (0.0-0.2); Basophils Percent Auto 0.6 % (0-2); Eosinophils Absolute Auto 0.2 X10*3/uL (0.0-0.4); Eosinophils Percent Auto 2.2 % (0-4); Hematocrit 27.6 % (37.0-47.0); Hemoglobin 9.4 g/dl (12.0-16.0); Imm Gran Abs Auto 0.03 X10*3/uL (0.00-0.03); Imm Gran Pct Auto 0.4 % (0.0-0.4); Lymphocytes Absolute Auto 0.9 X10*3/uL (1.2-4.9); Lymphocytes Percent Auto 10.8 % (20-40); Mean Corpuscular HGB Conc 34.1 g/dl (31.0-35.0); Mean Corpuscular Hemoglobin 30.5 pg (27.0-33.0); Mean Corpuscular Volume 89.6 fL (80.0-98.0); Mean Platelet Volume 9.2 fL (9.4-12.3); Monocytes Absolute Auto 1.1 X10*3/uL (0.1-1.2); Platelet Count 182 X10*3/uL (160-400); Red Blood Count 3.08 X10*6/uL (4.20-5.50); Red Cell Distribution Width 13.4 % (11.0-16.0); White Blood Count 8.2 X10*3/uL (4.8-10.8)
[2021-06-05 07:55] LABS: Anion Gap 14 (12-20); Blood Urea Nitrogen 55 mg/dL (9-16); Calcium 8.3 mg/dL (8.4-10.2); Carbon Dioxide 22 mmol/L (22-29); Chloride 104 mmol/L (96-108); Creatinine Clr Calc Pharmacy 28.3; Estimated Glomerular Filt Rate 38; Glucose Random 109 mg/dL (60-115); Potassium 4.6 mmol/L (3.3-5.1); Sodium 136 mmol/L (135-145)
[2021-06-05] MEDS: Ferrous Sulfate 324 MG TABLET.DR PO (08:38)
[2021-06-05] MEDS: Ascorbic Acid 500 MG TABLET 1000 MG PO (08:38)
[2021-06-05] MEDS: Cholecalciferol (Vitamin D3) 25 MCG TABLET 250 MCG PO (08:38)
[2021-06-05] MEDS: lisinopriL 5 MG TABLET PO (08:38)
[2021-06-05] MEDS: hydrALAZINE HCl 50 MG TABLET PO ×3 (08:39→21:22)
[2021-06-05] MEDS: Aspirin Enteric Coated 81 MG TABLET.DR PO (08:39)
[2021-06-05] MEDS: Multivitamin TABLET 1 TAB PO (08:39)
--- NOTE | 2021-06-05 10:26 | MHC.CM.PN ---
Attempted to meet with patient in regards to discharge planning. Patient currently sleeping. No family present. Attempted to reach patient's /HCP, Uriel via telephone at [phone]. Left message requesting return telephone call and explaining IMM would be left bedside. Case management assessment completed using medical record. Patient was discharged from [facility] to [facility]. Patient return to the hospital from [facility]. Anticipate patient will return via BLS when medically stable. Patient received 3 Pfizer vaccines. Continue to monitor for d/c needs.
[2021-06-05] MEDS: Collagenase Clostridium Hist. 30 GM TUBE 1 APPL TOPICAL ×2 (11:04→21:22)
[2021-06-05] MEDS: Calcitonin,Salmon,Synth Nasal 3.7 ML BOTTLE 1 SPRAY NOSTRIL-B (11:04)
--- NOTE | 2021-06-05 13:49 | MHC.CM.PN ---
Received call back from Mr. Jamil, pt's spouse. Discussed pt's care needs and potential set back d/t re hospitalization: Mr. Jamil was hoping to have pt return to home with [facility] and his / care/support however, pt will likely need a much higher intensity of services including daily wound care, possible IV ATB tx and physical assistance to reposition and transfer. After a lengthy discussion, he agrees to a referral back to [facility] to optimize pt's functional abilities with a goal of returning to home. CM to follow.
--- NOTE | 2021-06-05 14:33 | HO.PM.IMPN ---
Subjective Subjective Date of Service: 06/05/21 Interval History: f/u on acute blood loss anemia interval history: no active bleed, H/H stable after transfusion Review of Systems no active bleed, noc chest pain or sob Physical Exam Vital Signs: Vital Signs: Last Vital Signs Temp 98.0 F 06/05/21 03:52 Pulse 71 06/05/21 07:32 Resp 19 06/05/21 07:32 BP 183/67 H 06/05/21 07:32 Pulse Ox 97 06/05/21 07:32 BMI result Body Mass Index 18.3 Const: Other: General: AO X 3, no acute distress Resp: CTA bilateral CVS: S1,S2,RRR GI: +BS, NT, no distention Skin: No rash, decub ulcer present on admission--See H and P of Dr. Durand for picture Neuro: motor grossly intact Psych: appropriate affect Objective Data Active Medications Acetaminophen (Acetaminophen 325 Mg Tablet) 650 mg PO Q6H PRN PRN Reason: Pain, Mild (Pain Scale 1-3) Amlodipine Besylate (Amlodipine Besylate 10 Mg Tablet) 10 mg PO BEDTIME [facility]; Protocol Ascorbic Acid (Ascorbic Acid 500 Mg Tablet) 1,000 mg PO DAILY [facility] Last Admin: 06/05/21 08:38 Dose: 1,000 mg Documented by: EARNEST Aspirin (Aspirin Enteric Coated 81 Mg Tablet.) 81 mg PO DAILY [facility] Last Admin: 06/05/21 08:39 Dose: 81 mg Documented by: EARNEST Calcitonin [place] (Calcitonin,[place],Synth Nasal 3.7 Ml Bottle) 1 spray NOSTRIL-B DAILY [facility] Last Admin: 06/05/21 11:04 Dose: 1 spray Documented by: EARNEST Clonazepam (Clonazepam 1 Mg Tablet) 1 mg PO BEDTIME [facility] Collagenase (Collagenase Clostridium Hist. 30 Gm Tube) 1 appl TOPICAL BID [facility]; Protocol Last Admin: 06/05/21 11:04 Dose: 1 appl Documented by: EARNEST Ferrous Sulfate (Ferrous Sulfate 324 Mg Tablet.) 324 mg PO DAILY [facility] Last Admin: 06/05/21 08:38 Dose: 324 mg Documented by: EARNEST Hydralazine HCl (Hydralazine Hcl 50 Mg Tablet) 50 mg PO TID [facility]; Protocol Last Admin: 06/05/21 14:23 Dose: 50 mg Documented by: EARNEST Dextrose/Sodium Chloride (D5ns) 1,000 mls @ 50 mls/hr IVCONT .Q20H [facility] Last Admin: 06/05/21 00:38 Dose: 50 mls/hr Documented by: ANABEL Lisinopril (Lisinopril 5 Mg Tablet) 5 mg PO DAILY [facility]; Protocol Last Admin: 06/05/21 08:38 Dose: 5 mg Documented by: EARNEST Melatonin (Melatonin 3 Mg Tablet) 6 mg PO BEDTIME PRN PRN Reason: Insomnia Multivitamins/Vitamin C (Multivitamin Tablet) 1 tab PO DAILY [facility] Last Admin: 06/05/21 08:39 Dose: 1 tab Documented by: EARNEST Non-Formulary Medication (Lactobacillus Acidophilus [Probiotic]) 10,000 mmu cells PO DAILY [facility] Non-Formulary Medication (Evolocumab [Repatha Sureclick]) 140 mg SUBCUT Q14D [facility] Omeprazole (Omeprazole 20 Mg Capsule.) 20 mg PO DAILY@0630 [facility] Last Admin: 06/05/21 06:12 Dose: 20 mg Documented by: ANABEL Pantoprazole Sodium (Pantoprazole Sodium 40 Mg/10 Ml Vial) 40 mg IVPUSH DAILY@0630 [facility] Last Admin: 06/05/21 06:12 Dose: 40 mg Documented by: ANABEL Senna (Sennosides 8.6 Mg Tablet) 17.2 mg PO BEDTIME PRN PRN Reason: Constipation Sodium Chloride (0.9 % Sodium Chloride Flush 3 Ml Syringe) 3 ml IVFLUSH QSHIFT [facility] Last Admin: 06/05/21 10:42 Dose: Not Given Documented by: JUAN C Non-Admin Reason: IV Running Tamsulosin HCl (Tamsulosin Hcl 0.4 Mg Capsule) 0.4 mg PO BEDTIME [facility] Vitamin D (Cholecalciferol (Vitamin D3) 25 Mcg Tablet) 250 mcg PO DAILY [facility] Last Admin: 06/05/21 08:38 Dose: 250 mcg Documented by: EARNEST Labs CBC & Chem 7: 06/05/21 07:10 06/05/21 07:11 Labs: Laboratory Results - last 24 hr 06/04/21 06/04/21 06/04/21 17:55 17:55 17:55 MCV 90.6 MCH 30.0 MCHC 33.2 RDW 13.3 Plt Count 180 MPV 9.2 L Immature Gran % (Auto) 0.4 Neut % (Auto) 70.6 Lymph % (Auto) 12.1 L [place] % (Auto) 14.9 H Eos % (Auto) 1.5 Baso % (Auto) 0.5 Lymph # (Auto) 0.9 L [place] # (Auto) 1.1 Eos # (Auto) 0.1 Baso # (Auto) 0.0 Abs Immat Gran (auto) 0.03 Absolute Neuts (auto) 5.3 Absolute Nucleated RBC 0.000 Nucleated RBC % (auto) 0.0 Anion Gap 16 Estim Creat Clear Calc 22.9 Estimated GFR 29 Random Glucose 113 Calcium 8.5 Total Bilirubin < 0.2 AST 16 ALT 19 Alkaline Phosphatase 131 H Total Protein 5.3 L Albumin 3.0 L Stool Occult Blood COVID-19 (GENIE) COVID-19 Clin Com Blood Type B Positive Antibody Screen NEGATIVE Antibody Identification Negative Enhanced Crossmatch See Detail 06/04/21 06/04/21 06/05/21 20:25 22:44 07:10 MCV 89.6 MCH 30.5 MCHC 34.1 RDW 13.4 Plt Count 182 MPV 9.2 L Immature Gran % (Auto) 0.4 Neut % (Auto) 73.0 Lymph % (Auto) 10.8 L [place] % (Auto) 13.0 H Eos % (Auto) 2.2 Baso % (Auto) 0.6 Lymph # (Auto) 0.9 L [place] # (Auto) 1.1 Eos # (Auto) 0.2 Baso # (Auto) 0.1 Abs Immat Gran (auto) 0.03 Absolute Neuts (auto) 6.0 Absolute Nucleated RBC 0.000 Nucleated RBC % (auto) 0.0 Anion Gap Estim Creat Clear Calc Estimated GFR Random Glucose Calcium Total Bilirubin AST ALT Alkaline Phosphatase Total Protein Albumin Stool Occult Blood POSITIVE COVID-19 (GENIE) Negative COVID-19 Clin Com See Note Blood Type Antibody Screen Antibody Identification Enhanced Crossmatch 06/05/21 07:11 MCV MCH MCHC RDW Plt Count MPV Immature Gran % (Auto) Neut % (Auto) Lymph % (Auto) [place] % (Auto) Eos % (Auto) Baso % (Auto) Lymph # (Auto) [place] # (Auto) Eos # (Auto) Baso # (Auto) Abs Immat Gran (auto) Absolute Neuts (auto) Absolute Nucleated RBC Nucleated RBC % (auto) Anion Gap 14 Estim Creat Clear Calc 28.3 Estimated GFR 38 Random Glucose 109 Calcium 8.3 L Total Bilirubin AST ALT Alkaline Phosphatase Total Protein Albumin Stool Occult Blood COVID-19 (GENIE) COVID-19 Clin Com Blood Type Antibody Screen Antibody Identification Enhanced Crossmatch Assessment and Plan (1) Severe anemia: Status: Acute (2) GI bleed: Status: Acute Plan 81-year-old female with a past medical history of hypertension, hyperlipidemia, CAD, peripheral vascular disease, paroxysmal AFib, CKD, anemia, dementia, recent history of UTI-finished course of antibiotics; decubitus ulcer/VRE bacteremia on Zyvox until 06/26/2021; pulmonary fibrosis, ulcerative colitis, CLL presented to the hospital from the rehab with a chief complaint of anemia.? Noted to have guaiac-positive stool.? Admitted for further management. Acute blood loss Anemia:?s/p RBC transfusion, awaiting GI Eval, hemodynamically stable, hold ASA and follow H/H Decubitus ulcer on coccyx/history of VRE bacteremia-patient --has completed treatment with Zyvox, no further Abx recommended by GI, frequent turning and dressing change for wound History of hypertension: Continue home amlodipine, hydralazine History of chronic kidney disease:? Creatinine at baseline.? History of peripheral vascular disease:? Patient did not tolerate statin.? Aspirin on hold secondary to anemia.? Patient also on Repatha at home. History of paroxysmal AFib: Rate controlled.? Not on anticoagulation secondary to anemia.? Not on beta-tad secondary to bradycardia DVT prophylaxis:? SCD boots Code status:? DNI only. Not DNR.? As noted in the prior records.? Will also defer to the day team to confirm Code status. Need for inaptient : anemia that need GI eval and possible intervention Quality Stroke Does the patient have a stroke diagnosis?: No VTE Prior VTE?: No VTE Risk Level:: Medical - moderate - high VTE Device Contraindication: N/A - Device Ordered VTE Drug Contraindication: Treatment Not Indicated
--- NOTE | 2021-06-05 14:39 | W.PM.IDCN ---
History of Present Illness Data of Consult Service Date: 06/05/21 Requesting physician: Adam Marquez Primary Care Provider: Walter Braun MD HPI Reason for consult: sacral decubiti I had seen her with her yesterday in office. 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 She now is having weakness and found to have anemia which she has had in past as well. There is no diarrhea mentioned but patient has had malaise and not feeling well. Review of Systems Review of Systems: Yes Unobtainable due to mental status PMFSH Past Medical History Medical History Anemia CHF (congestive heart failure) CLL (chronic lymphocytic leukemia) Coronary artery calcification seen on CAT scan COVID-19 vaccine series completed Dementia Essential hypertension Hx of reduction of closed dislocation Hyperlipidemia NSTEMI (non-ST elevated myocardial infarction) Peripheral artery disease Peripheral vascular disease Pulmonary fibrosis Ulcerative colitis Vertigo VRE bacteremia Family History Family History Father No problems noted. Mother No problems noted. Family history: reviewed and not pertinent Surgical History Surgical History H/O carotid endarterectomy H/O colonoscopy History of hip replacement History of liver biopsy History of revision of total hip arthroplasty Hx of lumbar discectomy S/P popliteal-distal bypass Social History Social History Household Members: Other Household Members Other:: Housing: [place] Are you a primary palliative care nurse practitioner to a significant other at home: No Do you presently have visiting nurse or other home services: Yes (visiting nurse when was at home) Unable to assess alcohol history related to: Unknown Alcohol intake: never Patient Tobacco Use Status: Never used Tobacco Tobacco use type: Cigarette Years Smoked: 62 e-Cigarette/Vaping Use: Currently Using Second Hand Smoke Exposure: No Use of substances other than those prescribed or required for medical reasons: No Advance Directives: Yes Advance Directives on File: Yes Advance Directives Date on File: 05/06/20 service: No Current occupational status: retired 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 Meds Allergies Allergy/AdvReac Type Severity Reaction Status Date / Time diazepam [DIAZEPAM] Allergy Severe RASH Verified 06/04/21 16:56 Squftjd-PCC-OxE Reductase Allergy Severe Muscle Pain Verified 06/04/21 15:41 Inhibitor [[id number] REDUCTASE INHIBITOR] Active Medications: Current Medications Acetaminophen (Acetaminophen 325 Mg Tablet) 650 mg PO Q6H PRN PRN Reason: Pain, Mild (Pain Scale 1-3) Amlodipine Besylate (Amlodipine Besylate 10 Mg Tablet) 10 mg PO BEDTIME [facility]; Protocol Ascorbic Acid (Ascorbic Acid 500 Mg Tablet) 1,000 mg PO DAILY [facility] Last Admin: 06/05/21 08:38 Dose: 1,000 mg Documented by: Aspirin (Aspirin Enteric Coated 81 Mg Tablet.) 81 mg PO DAILY [facility] Last Admin: 06/05/21 08:39 Dose: 81 mg Documented by: Calcitonin [place] (Calcitonin,[place],Synth Nasal 3.7 Ml Bottle) 1 spray NOSTRIL-B DAILY [facility] Last Admin: 06/05/21 11:04 Dose: 1 spray Documented by: Clonazepam (Clonazepam 1 Mg Tablet) 1 mg PO BEDTIME [facility] Collagenase (Collagenase Clostridium Hist. 30 Gm Tube) 1 appl TOPICAL BID [facility]; Protocol Last Admin: 06/05/21 11:04 Dose: 1 appl Documented by: Ferrous Sulfate (Ferrous Sulfate 324 Mg Tablet.) 324 mg PO DAILY [facility] Last Admin: 06/05/21 08:38 Dose: 324 mg Documented by: Hydralazine HCl (Hydralazine Hcl 50 Mg Tablet) 50 mg PO TID [facility]; Protocol Last Admin: 06/05/21 14:23 Dose: 50 mg Documented by: Dextrose/Sodium Chloride (D5ns) 1,000 mls @ 50 mls/hr IVCONT .Q20H [facility] Last Admin: 06/05/21 00:38 Dose: 50 mls/hr Documented by: Lisinopril (Lisinopril 5 Mg Tablet) 5 mg PO DAILY [facility]; Protocol Last Admin: 06/05/21 08:38 Dose: 5 mg Documented by: Melatonin (Melatonin 3 Mg Tablet) 6 mg PO BEDTIME PRN PRN Reason: Insomnia Multivitamins/Vitamin C (Multivitamin Tablet) 1 tab PO DAILY [facility] Last Admin: 06/05/21 08:39 Dose: 1 tab Documented by: Non-Formulary Medication (Lactobacillus Acidophilus [Probiotic]) 10,000 mmu cells PO DAILY [facility] Non-Formulary Medication (Evolocumab [Repatha Sureclick]) 140 mg SUBCUT Q14D [facility] Omeprazole (Omeprazole 20 Mg Capsule.Dr) 20 mg PO DAILY@0630 [facility] Last Admin: 06/05/21 06:12 Dose: 20 mg Documented by: Pantoprazole Sodium (Pantoprazole Sodium 40 Mg/10 Ml Vial) 40 mg IVPUSH DAILY@0630 [facility] Last Admin: 06/05/21 06:12 Dose: 40 mg Documented by: Senna (Sennosides 8.6 Mg Tablet) 17.2 mg PO BEDTIME PRN PRN Reason: Constipation Sodium Chloride (0.9 % Sodium Chloride Flush 3 Ml Syringe) 3 ml IVFLUSH QSHIFT [facility] Last Admin: 06/05/21 10:42 Dose: Not Given Documented by: Tamsulosin HCl (Tamsulosin Hcl 0.4 Mg Capsule) 0.4 mg PO BEDTIME [facility] Vitamin D (Cholecalciferol (Vitamin D3) 25 Mcg Tablet) 250 mcg PO DAILY [facility] Last Admin: 06/05/21 08:38 Dose: 250 mcg Documented by: Home Medications Medication Instructions Recorded Confirmed Last Taken Type ascorbic acid (vitamin C) 1,000 mg 1,000 mg PO DAILY tab 03/09/20 06/04/21 04/29/21 History tablet aspirin 81 mg tablet,delayed 81 mg PO DAILY 03/09/20 06/04/21 04/28/21 History release cholecalciferol (vitamin D3) 250 250 mcg PO DAILY 03/09/20 06/04/21 04/29/21 History mcg (10,000 unit) capsule [id number] acid 0.4 1 tab PO DAILY 03/09/20 06/04/21 04/29/21 History mg-lycopene 300 mcg-lutein 250 mcg tablet (Centrum Silver) lisinopril 5 mg tablet 1 tab PO DAILY 01/02/21 06/04/21 04/29/21 History Lactobacillus acidophilus 10 10,000 mmu cells PO DAILY 05/07/21 06/04/21 Unknown History billion cell capsule (Probiotic) amlodipine 10 mg tablet 10 mg PO BEDTIME 05/07/21 06/04/21 Unknown History calcitonin (salmon) 200 1 spray INTRANASAL DAILY 05/07/21 06/04/21 Unknown History unit/actuation nasal spray evolocumab 140 mg/mL subcutaneous 140 mg SUBCUT Q2W 05/07/21 06/04/21 05/17/21 History pen injector (Sheree Madrigal) ferrous sulfate 325 mg (65 mg 325 mg PO DAILY 05/07/21 06/04/21 Unknown History iron) tablet collagenase clostridium histo. 250 1 appl TOPICAL BID 05/24/21 06/04/21 Unknown History unit/gram topical ointment (Santyl) hydralazine 100 mg tablet 50 mg PO TID 05/24/21 06/04/21 Unknown History tamsulosin 0.4 mg capsule 0.4 mg PO BEDTIME 05/24/21 06/04/21 Unknown History Physical Exam Vital Signs: Vital Signs: Last Vital Signs Temp 98.0 F 06/05/21 03:52 Pulse 71 06/05/21 07:32 Resp 19 06/05/21 07:32 BP 183/67 H 06/05/21 07:32 Pulse Ox 97 06/05/21 07:32 BMI result Body Mass Index 18.3 Const: General: cooperative Eyes: General: appearance normal, both eyes and all related structures Pupils: Equal, round and reactive pupils present Resp: Effort & Inspection: normal respiratory effort Cardio: Rate: regular rate Rhythm: regular rhythm GI: Palpation (GI): Soft to palpation and nontender Skin: General skin exam: no rashes or lesions noted Wounds: no wounds (sacral wound clean with margins no cellulitis,adipose tissue overlying) Neuro: Cranial nerves: Yes Equal, round and reactive pupils present Results Labs CBC & Chem 7: 06/05/21 07:10 06/05/21 07:11 Labs: Short CBC 06/04/21 06/05/21 Range/Units 17:55 07:10 WBC 7.5 8.2 (4.8-10.8) X10*3/uL Hgb 6.4 L* D 9.4 L D (12.0-16.0) g/dl Hct 19.3 L* D 27.6 L D (37.0-47.0) % Plt Count 180 182 (160-400) X10*3/uL BMP 06/04/21 06/05/21 17:55 07:11 Sodium 133 L 136 Potassium 5.9 H D 4.6 D Chloride 103 104 Carbon Dioxide 20 L 22 BUN 65 H D 55 H Creatinine 1.67 H 1.35 Calcium 8.5 8.3 L Liver Function 06/04/21 Range/Units 17:55 Total Bilirubin < 0.2 (0.0-1.0) mg/dL AST 16 (5-31) U/L ALT 19 (0-31) U/L Alkaline Phosphatase 131 H (39-117) U/L Albumin 3.0 L (3.5-5.0) g/dL Assessment and Plan (1) Severe anemia: Status: Acute (2) Decubitus ulcer: Status: Acute looks clear and has finished antibiotics for VRE one month with some side effects (3) Osteomyelitis: Status: Acute Plan Would hold antibiotics for now Consult Wound Clinic ?wound vac if area acceptable She has completed four weeks linezolid equally bioavailable IV and po and area looks clear. Consider bone biopsy if worsens in future.
--- NOTE | 2021-06-05 16:55 | PM.EVENT ---
Event Note Date of Service: 06/05/21 Event Note: GI consult dictated Recurrent anemia and heme pos stools EGD recently showed gastritis and duodenitis. Discussed colonscopy with pts who is leaning to limiting interventions but will allow colonoscopy at this time. Procedure scheduled for tomorrow after bowel prep tonight.
--- NOTE | 2021-06-05 20:06 | PC.NURSE ---
Attempted report to [facility], awaiting call back
[2021-06-05] MEDS: PEG 3350/Na Sulf,Bicarb,Cl/KCL 4,000 ML SOLN.RECON 4000 ML PO (20:49)
[2021-06-05] MEDS: amLODIPine Besylate 10 MG TABLET PO (21:22)
[2021-06-05] MEDS: clonazePAM 1 MG TABLET PO (21:22)
[2021-06-05] MEDS: Tamsulosin HCL 0.4 MG CAPSULE PO (21:22)
[2021-06-06] VITALS (9 sets, daily range): BP systolic 118–185; BP diastolic 40–82; PULSE 78–103; RESP 16–19; TEMP 36.2–37.2; O2SAT 95–99; BMI 18.9
--- NOTE | 2021-06-06 03:15 | PC.NURSE ---
Pt admitted to [facility] at approx 2100 from ED. Pt A&Ox1/2, requires frequent re-orientation but calm/cooperative. NSR w/ frequent ectopy. VSS. Both IVs were infiltrated upon arrival from ED, new #20 PIV placed to L FA. ?Stage 3/unstageable pressure injury noted to coccyx, pictures taken in ED- dsg falling off/saturated, wet to dry dressing done (see wound assessment). Pt educated on plan of care for colonoscopy in morning and bowel prep overnight, drinking solution minimally, will continue to encourage. Bed alarm on, call zafar in reach.
--- NOTE | 2021-06-06 03:32 | CONS_ITS ---
DATE OF SERVICE: 06/05/2021 REFERRING PHYSICIAN: Danny Durand MD REASON FOR CONSULTATION: Anemia and Hemoccult-positive stools. HISTORY OF PRESENT ILLNESS: Patient is a pleasantly demented 81-year-old woman known to me from prior evaluation. She was admitted to the hospital after ER evaluation from the rehab facility where she was noted to have a drop in her hematocrit from 26 to 20 over a period of slightly over a week. She was previously hospitalized in April with a similar presentation and underwent upper endoscopy, which showed gastritis and duodenitis. She has been treated with a proton pump inhibitor. The patient provides no useful history. There have been no reports of bleeding from nursing since admission here to the hospital or at the chronic care facility. She does have a history of ulcerative colitis and has been previously evaluated with colonoscopy, although her last colonoscopy was in 2013, which showed no endoscopic or biopsy proven colitis. She did have polyps which were hyperplastic, and has not undergone colonoscopy since then. She is not presently on any treatment for colitis. PAST MEDICAL HISTORY: 1. Colitis as above. 2. Hypertension. 3. Elevated cholesterol. 4. Coronary artery disease and peripheral vascular disease. 5. Dementia. 6. Pulmonary fibrosis. 7. CLL. CURRENT MEDICATIONS: Her current medication list is reviewed in the chart. ALLERGIES: THERE ARE MULTIPLE MEDICATION ALLERGIES. FAMILY HISTORY: This is reviewed in electronic medical record and is noncontributory. SOCIAL HISTORY: She has been residing at the [facility] care facility and has not been reported to smoke or abuse alcohol. REVIEW OF SYSTEMS: The review of systems is entirely negative as denied by the patient, but not accurate because of dementia. PHYSICAL EXAMINATION: GENERAL: Shows a pleasant female, lying comfortably in bed. Vital signs reviewed in the electronic medical record and are stable. SKIN: Anicteric. HEENT: Shows no scleral icterus. NECK: Without lymphadenopathy or thyromegaly. LUNGS: Clear. HEART: Shows a regular rate and rhythm. S1, S2. No murmur. ABDOMEN: Soft without focal masses or tenderness. Bowel sounds are present. No organomegaly is noted. EXTREMITIES: Without edema. LABORATORY DATA: Shows a hematocrit of 27.6, up from 19.3 on admission. Her last hematocrit done here was 27.5 on May 26. IMPRESSION: Anemia with Hemoccult-positive stools. At this point, her anemia is likely multifactorial based on her GI blood losses, renal issues, and CLL. She does have a large decubitus ulcer that may be contributing as well. I discussed colonoscopy with the patient's , Shekhar. He is leaning toward limiting interventional care, but agreed to colonoscopy to rule out any problems with a lower GI tract lesion as a cause for her significant anemia. He is aware of risks and benefits of the procedure and agrees to proceed. This will be scheduled for tomorrow pending a bowel prep tonight. Thanks for asking me to see her. I will follow her in the hospital with you. MD DAYANA Rayo/CHELY / [id number]
[2021-06-06] MEDS: Pantoprazole Sodium 40 MG/10 ML VIAL IVPUSH (05:58)
[2021-06-06] MEDS: hydrALAZINE HCl 50 MG TABLET PO ×3 (10:00→20:29)
[2021-06-06] MEDS: 0.9 % Sodium Chloride Flush 3 ML SYRINGE IVFLUSH ×2 (10:02→17:05)
[2021-06-06] MEDS: Collagenase Clostridium Hist. 30 GM TUBE 1 APPL TOPICAL ×2 (10:04→20:29)
[2021-06-06] MEDS: Calcitonin,Salmon,Synth Nasal 3.7 ML BOTTLE 1 SPRAY NOSTRIL-B (10:04)
--- NOTE | 2021-06-06 13:22 | MHC.CM.PN ---
EMR REVIEWED, PER HOSPITALIST PT TO HAVE COLONOSCOPY TODAY AND ANTIC PT WILL BE ABLE TO RETURN TO [facility] TOMORROW 06/07.CM WILL CONT TO FOLLOW D/C NEEDS. SNF UPDATED VIA [facility].
--- NOTE | 2021-06-06 14:15 | PC.NURSE ---
ulcer noted to coccyx
--- NOTE | 2021-06-06 14:40 | P.CONAN_ITS ---
HPI - Anesthesia Eval Consult details Narrative: 81F for colonoscopy STEMI , Carotid disease , Decubitus Ulcer Carotid disease PMF Active Problems Active Problems: All Active Problems (Updated 06/04/21 @ 22:27 by Payam Pradhan MD) Severe anemia (Acute) GI bleed (Acute) MATILDE (acute kidney injury) (Acute) Anemia (Acute) Decubitus ulcer (Acute) Osteomyelitis (Acute) Acute UTI (Acute) VRE bacteremia (Acute) Paroxysmal atrial fibrillation (Acute) Anemia (Acute) Chronic kidney failure (Acute) Anemia due to blood loss (Acute) First degree heart block (Acute) Other and unspecified hyperlipidemia (Acute) Status post carotid endarterectomy (Acute) Bilateral carotid artery stenosis (Acute) UTI (urinary tract infection) (Acute) Urine retention (Acute) Acute urinary retention (Acute) Hypertension (Acute) Anemia (Acute) NSTEMI (non-ST elevated myocardial infarction) (Acute) Hypertensive emergency (Acute) Essential hypertension (Acute) Peripheral artery disease (Acute) Coronary artery calcification seen on CAT scan (Acute) Past Medical History Medical History Anemia CHF (congestive heart failure) CLL (chronic lymphocytic leukemia) Coronary artery calcification seen on CAT scan COVID-19 vaccine series completed Dementia Essential hypertension Hx of reduction of closed dislocation Hyperlipidemia NSTEMI (non-ST elevated myocardial infarction) Peripheral artery disease Peripheral vascular disease Pulmonary fibrosis Ulcerative colitis Vertigo VRE bacteremia Family History Family History Father No problems noted. Mother No problems noted. Family history of problems with anesthesia: No Surgical History Surgical History H/O carotid endarterectomy H/O colonoscopy History of hip replacement History of liver biopsy History of revision of total hip arthroplasty Hx of lumbar discectomy S/P popliteal-distal bypass History of Problems with Anesthesia: No Social History Social History Household Members: Other Household Members Other:: Housing: Shelter Are you a primary managed care nurse to a significant other at home: No Do you presently have visiting nurse or other home services: Yes (visiting nurse when was at home) Unable to assess alcohol history related to: Unknown Alcohol intake: never Patient Tobacco Use Status: Never used Tobacco Tobacco use type: Cigarette Years Smoked: 62 e-Cigarette/Vaping Use: Currently Using Second Hand Smoke Exposure: No Advance Directives Date on File: 05/06/20 service: No Current occupational status: retired 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 Meds Allergies Allergy/AdvReac Type Severity Reaction Status Date / Time diazepam [DIAZEPAM] Allergy Severe RASH Verified 06/04/21 16:56 [id number]-[id number] Reductase Allergy Severe Muscle Pain Verified 06/04/21 15:41 Inhibitor [[id number] REDUCTASE INHIBITOR] Active Medications: Current Medications Acetaminophen (Acetaminophen 325 Mg Tablet) 650 mg PO Q6H PRN PRN Reason: Pain, Mild (Pain Scale 1-3) Amlodipine Besylate (Amlodipine Besylate 10 Mg Tablet) 10 mg PO BEDTIME [facility]; Protocol Last Admin: 06/05/21 21:22 Dose: 10 mg Documented by: Ascorbic Acid (Ascorbic Acid 500 Mg Tablet) 1,000 mg PO DAILY [facility] Last Admin: 06/06/21 10:02 Dose: Not Given Documented by: Aspirin (Aspirin Enteric Coated 81 Mg Tablet.) 81 mg PO DAILY [facility] Last Admin: 06/06/21 10:03 Dose: Not Given Documented by: Calcitonin Olmitz (Calcitonin,Olmitz,Synth Nasal 3.7 Ml Bottle) 1 spray NOSTRIL-B DAILY [facility] Last Admin: 06/06/21 10:04 Dose: 1 spray Documented by: Clonazepam (Clonazepam 1 Mg Tablet) 1 mg PO BEDTIME [facility] Last Admin: 06/05/21 21:22 Dose: 1 mg Documented by: Collagenase (Collagenase Clostridium Hist. 30 Gm Tube) 1 appl TOPICAL BID [facility]; Protocol Last Admin: 06/06/21 10:04 Dose: 1 appl Documented by: Ferrous Sulfate (Ferrous Sulfate 324 Mg Tablet.) 324 mg PO DAILY [facility] Last Admin: 06/06/21 10:03 Dose: Not Given Documented by: Hydralazine HCl (Hydralazine Hcl 50 Mg Tablet) 50 mg PO TID [facility]; Protocol Last Admin: 06/06/21 10:00 Dose: 50 mg Documented by: Dextrose/Sodium Chloride (D5ns) 1,000 mls @ 50 mls/hr IVCONT .Q20H [facility] Last Admin: 06/05/21 20:49 Dose: 50 mls/hr Documented by: Lisinopril (Lisinopril 5 Mg Tablet) 5 mg PO DAILY [facility]; Protocol Last Admin: 06/06/21 10:03 Dose: Not Given Documented by: Melatonin (Melatonin 3 Mg Tablet) 6 mg PO BEDTIME PRN PRN Reason: Insomnia Multivitamins/Vitamin C (Multivitamin Tablet) 1 tab PO DAILY [facility] Last Admin: 06/06/21 10:03 Dose: Not Given Documented by: Omeprazole (Omeprazole 20 Mg Capsule.Dr) 20 mg PO DAILY@629 [facility] Last Admin: 06/06/21 05:56 Dose: Not Given Documented by: Pantoprazole Sodium (Pantoprazole Sodium 40 Mg/10 Ml Vial) 40 mg IVPUSH DAILY@629 [facility] Last Admin: 06/06/21 05:58 Dose: 40 mg Documented by: Senna (Sennosides 8.6 Mg Tablet) 17.2 mg PO BEDTIME PRN PRN Reason: Constipation Sodium Chloride (0.9 % Sodium Chloride Flush 3 Ml Syringe) 3 ml IVFLUSH QSHIFT [facility] Last Admin: 06/06/21 10:02 Dose: 3 ml Documented by: Tamsulosin HCl (Tamsulosin Hcl 0.4 Mg Capsule) 0.4 mg PO BEDTIME [facility] Last Admin: 06/05/21 21:22 Dose: 0.4 mg Documented by: Vitamin D (Cholecalciferol (Vitamin D3) 25 Mcg Tablet) 250 mcg PO DAILY [facility] Last Admin: 06/06/21 10:04 Dose: Not Given Documented by: Home Medications Medication Instructions Recorded Confirmed Last Taken Type ascorbic acid (vitamin C) 1,000 mg 1,000 mg PO DAILY tab 03/09/20 06/04/21 04/29/21 History tablet aspirin 81 mg tablet,delayed 81 mg PO DAILY 03/09/20 06/04/21 04/28/21 History release cholecalciferol (vitamin D3) 250 250 mcg PO DAILY 03/09/20 06/04/21 04/29/21 History mcg (10,000 unit) capsule [id number]-ctt-[id number] acid 0.4 1 tab PO DAILY 03/09/20 06/04/21 04/29/21 History mg-lycopene 300 mcg-lutein 250 mcg tablet (Centrum Silver) lisinopril 5 mg tablet 1 tab PO DAILY 01/02/21 06/04/21 04/29/21 History Lactobacillus acidophilus 10 10,000 mmu cells PO DAILY 05/07/21 06/04/21 Unknown History billion cell capsule (Probiotic) amlodipine 10 mg tablet 10 mg PO BEDTIME 05/07/21 06/04/21 Unknown History calcitonin (salmon) 200 1 spray INTRANASAL DAILY 05/07/21 06/04/21 Unknown History unit/actuation nasal spray evolocumab 140 mg/mL subcutaneous 140 mg SUBCUT Q2W 05/07/21 06/04/21 05/17/21 History pen injector (Sheree Trevizoick) ferrous sulfate 325 mg (65 mg 325 mg PO DAILY 05/07/21 06/04/21 Unknown History iron) tablet collagenase clostridium histo. 250 1 appl TOPICAL BID 05/24/21 06/04/21 Unknown History unit/gram topical ointment (Santyl) hydralazine 100 mg tablet 50 mg PO TID 05/24/21 06/04/21 Unknown History tamsulosin 0.4 mg capsule 0.4 mg PO BEDTIME 05/24/21 06/04/21 Unknown History Exam Exam Date and Time: June 06, 2021 1440 Height,Weight and Vital Signs: Height 5 ft 7 in Weight 54.885 kg Last Vital Signs Temp 97.1 F 06/06/21 14:05 Pulse 102 H 06/06/21 14:05 Resp 18 06/06/21 14:05 BP 157/77 H 06/06/21 14:05 Pulse Ox 96 06/06/21 14:05 Pertinent Lab Results Pertinent Lab Results: Laboratory Tests 06/04/21 06/04/21 06/04/21 17:55 17:55 17:55 WBC 7.5 RBC 2.13 L D Hgb 6.4 L* D Hct 19.3 L* D MCV 90.6 MCH 30.0 MCHC 33.2 RDW 13.3 Plt Count 180 MPV 9.2 L Immature Gran % (Auto) 0.4 Neut % (Auto) 70.6 Lymph % (Auto) 12.1 L Clark % (Auto) 14.9 H Eos % (Auto) 1.5 Baso % (Auto) 0.5 Lymph # (Auto) 0.9 L Clark # (Auto) 1.1 Eos # (Auto) 0.1 Baso # (Auto) 0.0 Abs Immat Gran (auto) 0.03 Absolute Neuts (auto) 5.3 Absolute Nucleated RBC 0.000 Nucleated RBC % (auto) 0.0 Sodium 133 L Potassium 5.9 H D Chloride 103 Carbon Dioxide 20 L Anion Gap 16 BUN 65 H D Creatinine 1.67 H Estim Creat Clear Calc 22.9 Estimated GFR 29 Random Glucose 113 Calcium 8.5 Total Bilirubin < 0.2 AST 16 ALT 19 Alkaline Phosphatase 131 H Total Protein 5.3 L Albumin 3.0 L Stool Occult Blood COVID-19 (GENIE) COVID-19 Clin Com Blood Type B Positive Antibody Screen NEGATIVE Antibody Identification Negative Enhanced Crossmatch See Detail 06/04/21 06/04/21 06/05/21 20:25 22:44 07:10 WBC 8.2 RBC 3.08 L D Hgb 9.4 L D Hct 27.6 L D MCV 89.6 MCH 30.5 MCHC 34.1 RDW 13.4 Plt Count 182 MPV 9.2 L Immature Gran % (Auto) 0.4 Neut % (Auto) 73.0 Lymph % (Auto) 10.8 L Clark % (Auto) 13.0 H Eos % (Auto) 2.2 Baso % (Auto) 0.6 Lymph # (Auto) 0.9 L Clark # (Auto) 1.1 Eos # (Auto) 0.2 Baso # (Auto) 0.1 Abs Immat Gran (auto) 0.03 Absolute Neuts (auto) 6.0 Absolute Nucleated RBC 0.000 Nucleated RBC % (auto) 0.0 Sodium Potassium Chloride Carbon Dioxide Anion Gap BUN Creatinine Estim Creat Clear Calc Estimated GFR Random Glucose Calcium Total Bilirubin AST ALT Alkaline Phosphatase Total Protein Albumin Stool Occult Blood POSITIVE COVID-19 (GENIE) Negative COVID-19 Clin Com See Note Blood Type Antibody Screen Antibody Identification Enhanced Crossmatch 06/05/21 07:11 WBC RBC Hgb Hct MCV MCH MCHC RDW Plt Count MPV Immature Gran % (Auto) Neut % (Auto) Lymph % (Auto) Clark % (Auto) Eos % (Auto) Baso % (Auto) Lymph # (Auto) Clark # (Auto) Eos # (Auto) Baso # (Auto) Abs Immat Gran (auto) Absolute Neuts (auto) Absolute Nucleated RBC Nucleated RBC % (auto) Sodium 136 Potassium 4.6 D Chloride 104 Carbon Dioxide 22 Anion Gap 14 BUN 55 H Creatinine 1.35 Estim Creat Clear Calc 28.3 Estimated GFR 38 Random Glucose 109 Calcium 8.3 L Total Bilirubin AST ALT Alkaline Phosphatase Total Protein Albumin Stool Occult Blood COVID-19 (GENIE) COVID-19 Clin Com Blood Type Antibody Screen Antibody Identification Enhanced Crossmatch Airway Mallampati Class: III TM Dist: >3cm Neck ROM: Full Loose/Missing/Broken Teeth: Yes Heart: S1 S2 Lungs: b/l breath sounds Assessment and Plan Final Anesthetic Review Family History of Problems with Anesthesia: No History of Problems with Anesthesia: No NPO: Yes ASA Class: III and Emergency Final Preanesthetic Review: No Changes in Pt Med Stat, Meds/Allgs Chart Reviewed, Consent Obtained/Reviewed and Anes Risks/Benef Reviewed Patient Risk: High Procedure Risk: Intermediate Anesthetic Plan Anesthetic Plan: MAC: Disposition: Inp. Admit - Standard Bed
--- NOTE | 2021-06-06 15:48 | PM.EVENT ---
Event Note Date of Service: 06/06/21 Event Note: GI Colonoscopy exam limited by incomplete prep no polyps or signs of avms or tumors moderate diverticulosis no colitis, random bxs taken from ascending and sigmoid colon advance diet follow hct
--- NOTE | 2021-06-06 15:55 | P.PNIM_ITS ---
Subjective Subjective Date of Service: 06/06/21 Interval History: f/u on acute blood loss anemia interval history: no active bleed, H/H stable after transfusion Review of Systems no active bleed, noc chest pain or sob Physical Exam Vital Signs: Vital Signs: Last Vital Signs Temp 97.5 F 06/06/21 15:48 Pulse 81 06/06/21 15:48 Resp 18 06/06/21 15:48 BP 118/40 L 06/06/21 15:48 Pulse Ox 99 06/06/21 15:48 BMI result Body Mass Index 18.9 Const: Other: General: AO X 3, no acute distress Resp: CTA bilateral CVS: S1,S2,RRR GI: +BS, NT, no distention Skin: No rash, decub ulcer present on admission--See H and P of Dr. Durand for picture Neuro: motor grossly intact Psych: appropriate affect Objective Data Active Medications Acetaminophen (Acetaminophen 325 Mg Tablet) 650 mg PO Q6H PRN PRN Reason: Pain, Mild (Pain Scale 1-3) Amlodipine Besylate (Amlodipine Besylate 10 Mg Tablet) 10 mg PO BEDTIME [facility]; Protocol Last Admin: 06/05/21 21:22 Dose: 10 mg Documented by: GRZEGORZ Ascorbic Acid (Ascorbic Acid 500 Mg Tablet) 1,000 mg PO DAILY [facility] Last Admin: 06/06/21 10:02 Dose: Not Given Documented by: SANTI Non-Admin Reason: NPO Aspirin (Aspirin Enteric Coated 81 Mg Tablet.) 81 mg PO DAILY [facility] Last Admin: 06/06/21 10:03 Dose: Not Given Documented by: SANTI Non-Admin Reason: NPO Calcitonin Bethel (Calcitonin,Bethel,Synth Nasal 3.7 Ml Bottle) 1 spray NOSTRIL-B DAILY [facility] Last Admin: 06/06/21 10:04 Dose: 1 spray Documented by: SANTI Clonazepam (Clonazepam 1 Mg Tablet) 1 mg PO BEDTIME [facility] Last Admin: 06/05/21 21:22 Dose: 1 mg Documented by: GRZEGORZ Collagenase (Collagenase Clostridium Hist. 30 Gm Tube) 1 appl TOPICAL BID [facility]; Protocol Last Admin: 06/06/21 10:04 Dose: 1 appl Documented by: SANTI Ferrous Sulfate (Ferrous Sulfate 324 Mg Tablet.) 324 mg PO DAILY [facility] Last Admin: 06/06/21 10:03 Dose: Not Given Documented by: SANTI Non-Admin Reason: NPO Hydralazine HCl (Hydralazine Hcl 50 Mg Tablet) 50 mg PO TID [facility]; Protocol Last Admin: 06/06/21 10:00 Dose: 50 mg Documented by: SANTI Dextrose/Sodium Chloride (D5ns) 1,000 mls @ 50 mls/hr IVCONT .Q20H [facility] Last Admin: 06/05/21 20:49 Dose: 50 mls/hr Documented by: KAITLIN Lisinopril (Lisinopril 5 Mg Tablet) 5 mg PO DAILY [facility]; Protocol Last Admin: 06/06/21 10:03 Dose: Not Given Documented by: SANTI Non-Admin Reason: NPO Melatonin (Melatonin 3 Mg Tablet) 6 mg PO BEDTIME PRN PRN Reason: Insomnia Multivitamins/Vitamin C (Multivitamin Tablet) 1 tab PO DAILY [facility] Last Admin: 06/06/21 10:03 Dose: Not Given Documented by: SANTI Non-Admin Reason: NPO Omeprazole (Omeprazole 20 Mg Capsule.) 20 mg PO DAILY@0630 [facility] Last Admin: 06/06/21 05:56 Dose: Not Given Documented by: GRZEGORZ Non-Admin Reason: NPO Pantoprazole Sodium (Pantoprazole Sodium 40 Mg/10 Ml Vial) 40 mg IVPUSH DAILY@0630 [facility] Last Admin: 06/06/21 05:58 Dose: 40 mg Documented by: GRZEGORZ Senna (Sennosides 8.6 Mg Tablet) 17.2 mg PO BEDTIME PRN PRN Reason: Constipation Sodium Chloride (0.9 % Sodium Chloride Flush 3 Ml Syringe) 3 ml IVFLUSH QSHIFT [facility] Last Admin: 06/06/21 10:02 Dose: 3 ml Documented by: SANTI Tamsulosin HCl (Tamsulosin Hcl 0.4 Mg Capsule) 0.4 mg PO BEDTIME [facility] Last Admin: 06/05/21 21:22 Dose: 0.4 mg Documented by: GRZEGORZ Vitamin D (Cholecalciferol (Vitamin D3) 25 Mcg Tablet) 250 mcg PO DAILY [facility] Last Admin: 04/13/22 10:04 Dose: Not Given Documented by: SANTI Non-Admin Reason: NPO Labs CBC & Chem 7: 06/05/21 07:10 06/05/21 07:11 Assessment and Plan (1) Severe anemia: Status: Acute (2) GI bleed: Status: Acute Plan 81-year-old female with a past medical history of hypertension, hyperlipidemia, CAD, peripheral vascular disease, paroxysmal AFib, CKD, anemia, dementia, recent history of UTI-finished course of antibiotics; decubitus ulcer/VRE bacteremia on Zyvox until 06/26/2021; pulmonary fibrosis, ulcerative colitis, CLL presented to the hospital from the rehab with a chief complaint of anemia.? Noted to have guaiac-positive stool.? Admitted for further management. Acute blood loss Anemia:?s/p RBC transfusion, awaiting GI Eval, hemodynamically stable, hold ASA, for colonoscopy today Decubitus ulcer on coccyx/history of VRE bacteremia-patient --has completed treatment with Zyvox, no further Abx recommended by GI, frequent turning and dressing change for wound History of hypertension: Continue home amlodipine, hydralazine History of chronic kidney disease:? Creatinine at baseline.? History of peripheral vascular disease:? Patient did not tolerate statin.? Aspirin on hold secondary to anemia.? Patient also on Repatha at home. History of paroxysmal AFib: Rate controlled.? Not on anticoagulation secondary to anemia.? Not on beta-tad secondary to bradycardia DVT prophylaxis:? SCD boots Code status:? DNI only. Not DNR.? As noted in the prior records.? Will also defer to the day team to confirm Code status. Need for inaptient : anemia that need GI eval and possible intervention Quality Stroke Does the patient have a stroke diagnosis?: No VTE Prior VTE?: No VTE Risk Level:: Medical - moderate - high VTE Device Contraindication: N/A - Device Ordered VTE Drug Contraindication: Treatment Not Indicated
[2021-06-06] MEDS: Dextrose 5 % and 0.9 % NaCl 1,000 ML 50 ML IVCONT (17:04)
[2021-06-06] MEDS: amLODIPine Besylate 10 MG TABLET PO (20:29)
[2021-06-06] MEDS: Tamsulosin HCL 0.4 MG CAPSULE PO (20:29)
[2021-06-06] MEDS: clonazePAM 1 MG TABLET PO (20:29)
--- NOTE | 2021-06-07 01:14 | OP_ITS ---
SURGEON: Ad Hampton MD INDICATIONS: Anemia and Hemoccult-positive stools. PREOPERATIVE DIAGNOSIS: POSTOPERATIVE DIAGNOSIS: PROCEDURE PERFORMED: Colonoscopy to the terminal ileum with biopsy. ESTIMATED BLOOD LOSS: COMPLICATIONS: ANESTHESIA: ASSISTANTS: SPECIMENS: MEDICATIONS: Monitored anesthesia care. DESCRIPTION OF PROCEDURE: History and physical performed. The risks and benefits of the procedure were explained to the patient's and informed consent was obtained. The patient was placed in left lateral decubitus position. A digital rectal exam was performed and was found to be normal. The Olympus pediatric video colonoscope was introduced into the rectum and advanced to the cecum without difficulty. The cecum was identified by transillumination, palpation, and identification of the ileocecal valve. Examination was performed. The scope was removed. She tolerated the procedure well and was returned to the recovery area in stable condition. FINDINGS: The terminal ileum was examined and appeared normal. Exam was limited by an incomplete prep as the patient did not complete the prep. The procedure was adequate to rule out mass lesions. Stool was washed and suctioned as best possible. No mass, lesions, or polyps were identified. No AVMs were seen. There was no evidence of active colitis, which the patient had a history of in the past. Random biopsies were obtained from the right colon and sigmoid to evaluate for any evidence of microscopic colitis. There was moderate sigmoid diverticulosis with a few scattered diverticula throughout the remainder of the colon. In the right colon, there was a 15 x 20 mm lipoma. Retroflexed examination showed some internal hemorrhoids. IMPRESSION: Diverticulosis Normal colonoscopy. RECOMMENDATIONS: 1. Advance diet. 2. Follow up the biopsy results. 3. No screening colonoscopies based on age. MD DAYANA Rayo/HCELY / [id number] MTDD
[2021-06-07 03:27] VITALS: BP 148/65; PULSE 94; RESP 19; TEMP 37; O2SAT 96
[2021-06-07] MEDS: Pantoprazole Sodium 40 MG/10 ML VIAL IVPUSH (05:47)
--- NOTE | 2021-06-07 06:44 | HO.POSTANES ---
Post Anesthesia Evaluation Post Anesthesia Evaluation Vital Signs: Vital Signs Temp Pulse Resp BP Pulse Ox 06/07/21 03:27 98.6 F 94 19 148/65 H 96 06/06/21 23:34 98.9 F 85 19 153/67 H 97 06/06/21 19:51 98.2 F 95 18 185/82 H 97 Anesthesia: Monitored Mental Status: Awake Pain Control: Satisfactory Nausea/Vomiting: None Hydration: Adequate Anesthesia-Related Issues: No Anes. Related Issues
[2021-06-07 07:32] VITALS: BP 160/74; PULSE 73; RESP 18; TEMP 36.7; O2SAT 97
[2021-06-07] MEDS: 0.9 % Sodium Chloride Flush 3 ML SYRINGE IVFLUSH ×2 (08:47→18:09)
[2021-06-07] MEDS: Ferrous Sulfate 324 MG TABLET.DR PO (08:47)
[2021-06-07] MEDS: Aspirin Enteric Coated 81 MG TABLET.DR PO (08:47)
[2021-06-07] MEDS: Cholecalciferol (Vitamin D3) 25 MCG TABLET 250 MCG PO (08:48)
[2021-06-07] MEDS: Multivitamin TABLET 1 TAB PO (08:48)
[2021-06-07] MEDS: hydrALAZINE HCl 50 MG TABLET PO ×3 (08:48→21:32)
[2021-06-07] MEDS: lisinopriL 5 MG TABLET PO (08:48)
[2021-06-07] MEDS: Ascorbic Acid 500 MG TABLET 1000 MG PO (08:48)
[2021-06-07] MEDS: Calcitonin,Salmon,Synth Nasal 3.7 ML BOTTLE 1 SPRAY NOSTRIL-B (08:49)
[2021-06-07] MEDS: Collagenase Clostridium Hist. 30 GM TUBE 1 APPL TOPICAL ×2 (08:49→21:33)
[2021-06-07 09:30] LABS: Hematocrit 28.4 % (37.0-47.0); Hemoglobin 9.5 g/dl (12.0-16.0); Mean Corpuscular HGB Conc 33.5 g/dl (31.0-35.0); Mean Corpuscular Hemoglobin 30.7 pg (27.0-33.0); Mean Corpuscular Volume 91.9 fL (80.0-98.0); Mean Platelet Volume 9.3 fL (9.4-12.3); Platelet Count 273 X10*3/uL (160-400); Red Blood Count 3.09 X10*6/uL (4.20-5.50); Red Cell Distribution Width 13.9 % (11.0-16.0); White Blood Count 10.2 X10*3/uL (4.8-10.8)
--- NOTE | 2021-06-07 10:22 | MHC.CM.PN ---
Addendum entered by Kaelyn Anguiano RN 06/07/21 16:26: [facility] has not received auth from [employer] [employer] so plan will be for pt to d/c tomorrow moring once auth is obtained. hospitalist and nsg aware. Original Note: CM MET W/PT AND AND NASIR AT BEDSIDE, NASIR REPORTS HE TRANSPORTED PT FROM [facility] TO [facility] AND WILL TRANSPORT HER BACK UPON D/C IF THAT IS OKAY, PT HAS ONCOLOGY APPT COMING UP AND CBC, CMP AND FERRITIN WILL BE FAXED TO DR COLBERT AT [phone]. D/C PLAN CONT'S TO BE RETURN TO [facility] TO COMPLETE IV ABX TX.
[2021-06-07 12:00] VITALS: BP 147/65; PULSE 81; RESP 18; TEMP 36.1; O2SAT 98
[2021-06-07 13:39] VITALS: BP 147/65; PULSE 81; O2SAT 98
[2021-06-07 15:03] LABS: Influenza A PCR NEGATIVE (Negative); Influenza B PCR NEGATIVE (Negative); Resp Syncy Virus RNA Qual PCR NEGATIVE (Negative); SARS COV2 PCR INHOUSE NEGATIVE (Negative)
[2021-06-07 16:00] VITALS: BP 158/62; PULSE 80; RESP 18; TEMP 36.7; O2SAT 98
--- NOTE | 2021-06-07 18:33 | P.PNIM_ITS ---
Subjective Subjective Date of Service: 06/07/21 Interval History: f/u on acute blood loss anemia interval history: no active bleed, H/H stable after colonoscopy Review of Systems no active bleed, noc chest pain or sob Physical Exam Vital Signs: Vital Signs: Last Vital Signs Temp 98.1 F 06/07/21 16:00 Pulse 80 06/07/21 16:00 Resp 18 06/07/21 16:00 BP 158/62 H 06/07/21 16:00 Pulse Ox 98 06/07/21 16:00 BMI result Body Mass Index 18.9 Const: Other: General: AO X 3, no acute distress Resp: CTA bilateral CVS: S1,S2,RRR GI: +BS, NT, no distention Skin: No rash, decub ulcer present on admission--See H and P of Dr. Durand for picture Neuro: motor grossly intact Psych: appropriate affect Objective Data Active Medications Acetaminophen (Acetaminophen 325 Mg Tablet) 650 mg PO Q6H PRN PRN Reason: Pain, Mild (Pain Scale 1-3) Amlodipine Besylate (Amlodipine Besylate 10 Mg Tablet) 10 mg PO BEDTIME [facility]; Protocol Last Admin: 06/06/21 20:29 Dose: 10 mg Documented by: WESLEY Ascorbic Acid (Ascorbic Acid 500 Mg Tablet) 1,000 mg PO DAILY [facility] Last Admin: 06/07/21 08:48 Dose: 1,000 mg Documented by: AB Aspirin (Aspirin Enteric Coated 81 Mg Tablet.) 81 mg PO DAILY [facility] Last Admin: 06/07/21 08:47 Dose: 81 mg Documented by: AB Calcitonin Cheyenne (Calcitonin,Cheyenne,Synth Nasal 3.7 Ml Bottle) 1 spray NOSTRIL-B DAILY [facility] Last Admin: 06/07/21 08:49 Dose: 1 spray Documented by: AB Clonazepam (Clonazepam 1 Mg Tablet) 1 mg PO BEDTIME [facility] Last Admin: 06/06/21 20:29 Dose: 1 mg Documented by: WESLEY Collagenase (Collagenase Clostridium Hist. 30 Gm Tube) 1 appl TOPICAL BID [facility]; Protocol Last Admin: 06/07/21 08:49 Dose: 1 appl Documented by: AB Ferrous Sulfate (Ferrous Sulfate 324 Mg Tablet.) 324 mg PO DAILY [facility] Last Admin: 06/07/21 08:47 Dose: 324 mg Documented by: AB Hydralazine HCl (Hydralazine Hcl 50 Mg Tablet) 50 mg PO TID [facility]; Protocol Last Admin: 06/07/21 14:04 Dose: 50 mg Documented by: AB Dextrose/Sodium Chloride (D5ns) 1,000 mls @ 50 mls/hr IVCONT .Q20H [facility] Last Admin: 06/07/21 15:39 Dose: Not Given Documented by: AB Non-Admin Reason: Physician Held Med Lisinopril (Lisinopril 5 Mg Tablet) 5 mg PO DAILY [facility]; Protocol Last Admin: 06/07/21 08:48 Dose: 5 mg Documented by: AB Melatonin (Melatonin 3 Mg Tablet) 6 mg PO BEDTIME PRN PRN Reason: Insomnia Multivitamins/Vitamin C (Multivitamin Tablet) 1 tab PO DAILY [facility] Last Admin: 06/07/21 08:48 Dose: 1 tab Documented by: AB Omeprazole (Omeprazole 20 Mg Capsule.Dr) 20 mg PO DAILY@0630 [facility] Last Admin: 06/07/21 03:57 Dose: Not Given Documented by: GRZEGORZ Non-Admin Reason: given IV PPI Pantoprazole Sodium (Pantoprazole Sodium 40 Mg/10 Ml Vial) 40 mg IVPUSH DAILY@0630 [facility] Last Admin: 06/07/21 05:47 Dose: 40 mg Documented by: GRZEGORZ Senna (Sennosides 8.6 Mg Tablet) 17.2 mg PO BEDTIME PRN PRN Reason: Constipation Sodium Chloride (0.9 % Sodium Chloride Flush 3 Ml Syringe) 3 ml IVFLUSH QSHIFT [facility] Last Admin: 06/07/21 18:09 Dose: 3 ml Documented by: WESLEY Tamsulosin HCl (Tamsulosin Hcl 0.4 Mg Capsule) 0.4 mg PO BEDTIME [facility] Last Admin: 06/06/21 20:29 Dose: 0.4 mg Documented by: WESLEY Vitamin D (Cholecalciferol (Vitamin D3) 25 Mcg Tablet) 250 mcg PO DAILY [facility] Last Admin: 06/07/21 08:48 Dose: 250 mcg Documented by: AB Labs CBC & Chem 7: 06/07/21 08:50 06/05/21 07:11 Labs: Laboratory Results - last 24 hr 06/07/21 06/07/21 08:50 14:01 MCV 91.9 MCH 30.7 MCHC 33.5 RDW 13.9 Plt Count 273 D MPV 9.3 L Absolute Nucleated RBC 0.000 Nucleated RBC % (auto) 0.0 Influenza Type A (PCR) NEGATIVE Influenza Type B (PCR) NEGATIVE RSV RNA Qual (PCR) NEGATIVE SARS-CoV-2 RNA (RT-PCR) NEGATIVE Assessment and Plan (1) GI bleed: Status: Acute (2) Severe anemia: Status: Acute (3) Decubitus ulcer: Status: Acute Plan 81-year-old female with a past medical history of hypertension, hyperlipidemia, CAD, peripheral vascular disease, paroxysmal AFib, CKD, anemia, dementia, recent history of UTI-finished course of antibiotics; decubitus ulcer/VRE bacteremia on Zyvox until 06/26/2021; pulmonary fibrosis, ulcerative colitis, CLL presented to the hospital from the rehab with a chief complaint of anemia.? Noted to have guaiac-positive stool.? Admitted for further management. Acute blood loss Anemia:?s/p RBC transfusion, awaiting GI Eval, hemodynamically stable, hold ASA, for colonoscopy today Decubitus ulcer on coccyx/history of VRE bacteremia-patient --has completed rosy tment with Zyvox, no further Abx recommended by GI, frequent turning and dressing change for wound History of hypertension: Continue home amlodipine, hydralazine History of chronic kidney disease:? Creatinine at baseline.? History of peripheral vascular disease:? Patient did not tolerate statin.? Aspirin on hold secondary to anemia.? Patient also on Repatha at home. History of paroxysmal AFib: Rate controlled.? Not on anticoagulation secondary to anemia.? Not on beta-tad secondary to bradycardia DVT prophylaxis:? SCD boots Code status:? DNI only. Not DNR.? As noted in the prior records.? Will also defer to the day team to confirm Code status. Need for inaptient : anemia that need GI eval and possible intervention Quality Stroke Does the patient have a stroke diagnosis?: No VTE Prior VTE?: No VTE Risk Level:: Medical - moderate - high VTE Device Contraindication: N/A - Device Ordered VTE Drug Contraindication: Treatment Not Indicated
[2021-06-07 20:00] VITALS: BP 166/72; PULSE 81; RESP 17; TEMP 37.5; O2SAT 98
[2021-06-07] MEDS: amLODIPine Besylate 10 MG TABLET PO (21:31)
[2021-06-07] MEDS: clonazePAM 1 MG TABLET PO (21:31)
[2021-06-07] MEDS: Tamsulosin HCL 0.4 MG CAPSULE PO (21:32)
[2021-06-08] VITALS: BP 168/64; PULSE 78; RESP 18; TEMP 36.7; O2SAT 98
[2021-06-08 03:12] VITALS: BP 177/79; PULSE 80; RESP 18; TEMP 36.9; O2SAT 97
[2021-06-08] MEDS: Pantoprazole Sodium 40 MG/10 ML VIAL IVPUSH (05:59)
[2021-06-08 07:46] VITALS: BP 135/68; PULSE 123; RESP 16; TEMP 37.1; O2SAT 97
[2021-06-08] MEDS: hydrALAZINE HCl 50 MG TABLET PO (08:45)
[2021-06-08] MEDS: Ferrous Sulfate 324 MG TABLET.DR PO (08:45)
[2021-06-08] MEDS: Cholecalciferol (Vitamin D3) 25 MCG TABLET 250 MCG PO (08:45)
[2021-06-08] MEDS: lisinopriL 5 MG TABLET PO (08:45)
[2021-06-08] MEDS: Ascorbic Acid 500 MG TABLET 1000 MG PO (08:45)
[2021-06-08] MEDS: Multivitamin TABLET 1 TAB PO (08:45)
[2021-06-08] MEDS: Calcitonin,Salmon,Synth Nasal 3.7 ML BOTTLE 1 SPRAY NOSTRIL-B (08:46)
[2021-06-08] MEDS: 0.9 % Sodium Chloride Flush 3 ML SYRINGE IVFLUSH (08:46)
--- NOTE | 2021-06-08 10:00 | MHC.CM.PN ---
PLAN REMAINS TO RETURN TO [facility] TO FINISH STR ONCE [facility] PROVIDES AUTH W/ FOR TRANSPORT.
--- NOTE | 2021-06-08 10:54 | MHC.CLN ---
F/U PT WITH INCREASED NUTRITION RISK R/T PRESSURE INJURY PT REPORTS UBW 140#; FAMILY MEMBER REPORTS CHRONIC POOR PO AND SOME SLOW WT LOSS OVER THE PAST YEAR. WT HX HAS FLUCTUATING WTS HT 5'7 USED FOR ASSESSMENT. PT REPORTED HER HT WAS 5'8 BUT SHE STATED I AM SHRINKING DIET RX: REGULAR-APPROPRIATE RECOMMEND ENSURE SUPPLEMENT TID TO INCREASE KCALS AND PROMOTE WOUND HEALING PT RECEPTIVE TO DRINKING SUPPLEMENT AND PREFERS TO TRIAL ALL FLAVORS OFFERED SUPP TO PROVIDE 1050KCALS, 60G PROTEIN MONITOR PO INTAKE CLOSELY
[2021-06-08 11:09] VITALS: BP 149/67; PULSE 77; RESP 16; TEMP 36.9; O2SAT 98
--- NOTE | 2021-06-08 12:11 | PM.DS ---
DS: Providers Provider Date of Service: 06/08/21 Date of admission: 06/04/21 23:01 Primary care physician: Walter Braun MD Consults: 06/04/21 23:03 Consult to Gastroenterology Routine Consulting Provider: Ad Hampton Reason for consultation: anemia; guaiac positive stool 06/04/21 23:05 Consult to Infectious Diseases Routine Consulting Provider: Elsie Solis Reason for consultation: dm foot ulcer; ?liezolid vs daptomycin DS: Diagnosis Discharge Diagnosis (1) Severe anemia: Status: Acute (2) GI bleed: Status: Acute DS: Summary Hospital Course Hospital Course: Chief Complaint: Anemia 81-year-old female with a past medical history of hypertension, hyperlipidemia, CAD, peripheral vascular disease, paroxysmal AFib, CKD, anemia, dementia, recent history of UTI-finished course of antibiotics; decubitus ulcer/VRE bacteremia on Zyvox until 06/26/2021; pulmonary fibrosis, ulcerative colitis, CLL presented to the hospital from the rehab with a chief complaint of anemia. Patient is a poor historian.? Most of the history obtained from the records.? Patient is alert awake and pleasantly lying in the bed; denies any pain, nausea vomiting, abdominal discomfort, fever chills or cough.? Patient denies any chest pain or palpitations.? Denies any shortness of breath or dyspnea on exertion.? Review of all other systems is limited.? ER course: Per ER team patient on presentation noted to have hemoglobin of 6.4; stool guaiac was positive; patient was being ordered for 2 units of blood transfusion.? Admitted to the hospital for further management Hosital course: She presented with acute blood loss anemia on top chronic anemia her hemoglobin was 6.4 and after 2 units of RBC it is now 9.5. She had colonoscopy on 06/06 with no signficant finding. Her bleeding could be from decub ulcer and should continue to be off Eliquis at this time. Decubitus ulcer on coccyx/history of VRE bacteremia-patient --has completed treatment with Zyvox, no further Abx recommended by GI, frequent turning and dressing change for wound History of hypertension: Continue home amlodipine, hydralazine History of chronic kidney disease:? Creatinine at baseline.? History of peripheral vascular disease:? Patient did not tolerate statin.? Aspirin on hold secondary to anemia.? Patient also on Repatha at home. History of paroxysmal AFib: Rate controlled.? Not on anticoagulation secondary to anemia.? Not on beta-tad secondary to bradycardia Time Spent with Patient Time attestation: Total time spent providing and/or coordinating discharge services: Discharge coordination time: Greater than 30 minutes Quality: Safe Use of Opioids Does Pt have an Active Cancer Diagnosis on the Problem List?: No Quality: Stroke Does the patient have a stroke diagnosis?: No Physical Exam Vital Signs: Vital Signs: Selected Entries 06/08/21 11:09 Temperature 98.4 F Pulse Rate 77 Respiratory Rate 16 Blood Pressure 149/67 H Pulse Oximetry 98 Oxygen Delivery Me thod Room Air Const: Other: General: AO X 3, no acute distress Resp: CTA bilateral CVS: S1,S2,RRR GI: +BS, NT, no distention Skin: No rash, decub ulcer present on admission--See H and P of Dr. Durand for picture Neuro: motor grossly intact Psych: appropriate affect DS: Data Data Completed and Pending Pending studies at discharge: Pending at discharge 06/06/21 15:52 Surgical [PTH] Routine Labs on day of discharge: Laboratory Results - last 24 hr 06/07/21 08:50 WBC 10.2 RBC 3.09 L Hgb 9.5 L Hct 28.4 L MCV 91.9 MCH 30.7 MCHC 33.5 RDW 13.9 Plt Count 273 D MPV 9.3 L Absolute Nucleated RBC 0.000 Nucleated RBC % (auto) 0.0 Discharge Plan Discharge Anticipated Discharge Date/Time: 06/07/21 10:23 Patient Disposition: Xfer SNF Discharge Diagnosis: Anemia Referrals: Walter Braun MD [Primary Care Provider] - 1 Week Discharge Medications: Continued lisinopril 5 mg tablet 1 tab PO DAILY 0RF calcitonin (salmon) 200 unit/actuation spray,non-aerosol 1 spray intranasal DAILY 0RF Rx Instructions: alternating nostrils ferrous sulfate 325 mg (65 mg iron) Tablet 325 mg PO DAILY 0RF Probiotic 10 billion cell Capsule 10,000 mmu cells PO DAILY 0RF Repatha SureClick 140 mg/mL Pen Injector 140 mg SUBCUT Q2W 0RF amlodipine 10 mg tablet 10 mg PO BEDTIME 0RF Protocol: Hold for SBP< HOLD for SBP < : 90 omeprazole 20 mg Capsule,Delayed Release(Dr/Ec) 20 mg PO DAILY@0630 Qty: 30 0RF clonazepam 0.5 mg tablet 1 mg PO BEDTIME Qty: 30 0RF tamsulosin 0.4 mg Capsule 0.4 mg PO BEDTIME 0RF Santyl 250 unit/gram Ointment 1 appl TOPICAL BID 0RF hydralazine 100 mg tablet 50 mg PO TID 0RF cefuroxime axetil 500 mg tablet 500 mg PO Q12H Qty: 10 0RF linezolid 600 mg tablet 600 mg PO Q12H 30 Days Qty: 42 0RF Rx Instructions: started 05/15: total needs to be on x 21 days aspirin 81 mg tablet,delayed release (DR/EC) 81 mg PO DAILY 0RF Hold Instructions: Resume on 05/07/21. cholecalciferol (vitamin D3) 250 mcg (10,000 unit) capsule 250 mcg PO DAILY 0RF ascorbic acid (vitamin C) 1,000 mg tablet 1,000 mg PO DAILY 0RF Centrum Silver 0.4-300-250 mg-mcg-mcg tablet 1 tab PO DAILY 0RF Discharge Orders: Discharge Order (Routine); Ordered 06/07/21 Ordered By: Adam Marquez Diet: advance to usual diet Activity on Discharge: As tolerated Stand Alone Forms: Patient Portal Discharge page Care Plan Goals: prevent rehospialization and stabilization of anemia Health Concerns: Acute blood loss anemia, chronic decub ulcer Plan of Treatment: Take iron as recommended and follow up with your doctor in a week Assessment: as above
--- NOTE | 2021-06-08 13:07 | MHC.CM.PN ---
INSURANCE RECEIVED BY SNF AND PLAN FOR D/C BACK TO [facility] TO COMPLETE STR BY 2PM, WILL TRANSPORT HER.
== END 2021-06-08 16:15 | disposition skilled nursing facility (03) | DRG 378 ==
LOC: HO.ED 22:27 → HO.EDOVER 23:11 → HO.IMC 06-05 19:05
PROVIDERS: Internal Medicine Gastroenterology; Admitting Provider Hospitalist; Emergency Provider Internal Medicine; PCP Family Medicine; Visit Provider Internal Medicine
PROC: 0DJD8ZZ Inspection of Lower Intestinal Tract, Via Natural or Artificial Opening Endoscopic (ICD-10-PCS; CPT 45378; principal; 2021-06-06 14:30)
DX: K92.2 Gastrointestinal hemorrhage, unspecified (principal); C91.10 Chronic lymphocytic leukemia of B-cell type not having achieved remission; N17.9 Acute kidney failure, unspecified; E78.5 Hyperlipidemia, unspecified; I25.10 Atherosclerotic heart disease of native coronary artery without angina pectoris; I48.0 Paroxysmal atrial fibrillation; K64.8 Other hemorrhoids; D17.5 Benign lipomatous neoplasm of intra-abdominal organs; I73.9 Peripheral vascular disease, unspecified; L89.159 Pressure ulcer of sacral region, unspecified stage; I12.9 Hypertensive chronic kidney disease with stage 1 through stage 4 chronic kidney disease, or unspecified chronic kidney disease; N18.9 Chronic kidney disease, unspecified; F03.90 Unspecified dementia, unspecified severity, without behavioral disturbance, psychotic disturbance, mood disturbance, and anxiety; D63.1 Anemia in chronic kidney disease; Z87.440 Personal history of urinary (tract) infections; Z20.822 Contact with and (suspected) exposure to COVID-19; Z96.643 Presence of artificial hip joint, bilateral; Z79.82 Long term (current) use of aspirin; Z79.899 Other long term (current) drug therapy
CPT/HCPCS: 45380; 0241U; 36415; 80048; 80053; 82272; 85025; 85027; 86850; 86870; 86885; 86900; 86901; 86920; 86921; 87635; 88305; 93005; 97162; 99212; 99219; 99285; J2370; P9016

== ENCOUNTER → 2021-06-20 09:22 | Outpatient (BNVA) | payer MEDICARE, SELFPAY | PROVIDERS: PCP Family Medicine; Referring Provider Family Medicine; Visit Provider Surgery | DX: L89.153 Pressure ulcer of sacral region, stage 3 (principal) | CPT/HCPCS: 99212 ==

== ENCOUNTER 2021-06-21 11:29 | Outpatient (REF) | payer MEDICARE, SELFPAY ==
[2021-06-21 13:53] LABS: MANUAL DIFF FLAG NO
[2021-06-21 14:00] LABS: Basophils Absolute Auto 0.1 X10*3/uL (0.0-0.2); Basophils Percent Auto 0.8 % (0-2); Eosinophils Absolute Auto 0.3 X10*3/uL (0.0-0.4); Eosinophils Percent Auto 4.3 % (0-4); Hematocrit 27.9 % (37.0-47.0); Imm Gran Abs Auto 0.02 X10*3/uL (0.00-0.03); Imm Gran Pct Auto 0.3 % (0.0-0.4); Lymphocytes Absolute Auto 0.9 X10*3/uL (1.2-4.9); Lymphocytes Percent Auto 14.2 % (20-40); Mean Corpuscular HGB Conc 32.3 g/dl (31.0-35.0); Mean Corpuscular Hemoglobin 30.9 pg (27.0-33.0); Mean Corpuscular Volume 95.9 fL (80.0-98.0); Mean Platelet Volume 9.7 fL (9.4-12.3); Monocytes Absolute Auto 0.6 X10*3/uL (0.1-1.2); Monocytes Percent Auto 9.2 % (2-11); Neutrophils Absolute Auto 4.3 x10*3/uL (2.0-8.3); Neutrophils Percent Auto 71.2 % (45-73); Platelet Count 411 X10*3/uL (160-400); Red Blood Count 2.91 X10*6/uL (4.20-5.50); Red Cell Distribution Width 15.1 % (11.0-16.0)
[2021-06-21 14:17] LABS: Alanine Aminotransferase 14 U/L (0-31); Albumin Level 2.9 g/dL (3.5-5.0); Alkaline Phosphatase 130 U/L (39-117); Anion Gap 13 (12-20); Aspartate Amino Transferase 14 U/L (5-31); Bilirubin Total 0.2 mg/dL (0.0-1.0); Blood Urea Nitrogen 41 mg/dL (9-16); Calcium 8.4 mg/dL (8.4-10.2); Carbon Dioxide 23 mmol/L (22-29); Chloride 106 mmol/L (96-108); Estimated Glomerular Filt Rate 42; Glucose Random 96 mg/dL (60-115); Potassium 4.8 mmol/L (3.3-5.1); Sodium 137 mmol/L (135-145); Total Protein 5.3 g/dL (6.5-8.0)
[2021-06-21 14:37] LABS: Ferritin 406 ng/mL (10-250)
== END 2021-06-21 11:30 | disposition home or self-care (01) ==
LOC: HO.HMGCLDS 11:29
PROVIDERS: Visit Provider Internal Medicine Medical Oncology
DX: D69.6 Thrombocytopenia, unspecified (principal)
CPT/HCPCS: 36415; 80053; 82728; 85025

== ENCOUNTER → 2021-06-26 13:04 | Outpatient (BNVA) | payer MEDICARE, SELFPAY | PROVIDERS: PCP Family Medicine | DX: R33.9 Retention of urine, unspecified (principal); Z79.899 Other long term (current) drug therapy | CPT/HCPCS: 99212 ==

== ENCOUNTER 2021-06-28 12:51 | Outpatient (RCR) | payer MEDICARE, SELFPAY ==
--- NOTE | 2021-05-28 12:37 | HO.WOUNDCONS ---
History of Present Illness Data of Consult Service Date: 05/28/21 <VLAD Moran - Last Filed: 05/28/21 12:40> Primary Care Provider: Walter Braun MD <VLAD Moran - Last Filed: 05/28/21 12:40> [facility] Medical History: Medical History (Updated 06/20/21 @ 09:58 by Ritchie Lofton MD) Anemia Anemia CHF (congestive heart failure) CLL (chronic lymphocytic leukemia) Coronary artery calcification seen on CAT scan COVID-19 vaccine series completed Decubitus ulcer Decubitus ulcer of back, stage 3 Dementia Essential hypertension Hx of reduction of closed dislocation Hyperlipidemia NSTEMI (non-ST elevated myocardial infarction) Osteomyelitis Peripheral artery disease Peripheral vascular disease Pulmonary fibrosis Ulcerative colitis Vertigo VRE bacteremia <VLAD Moran - Last Filed: 05/28/21 12:40> Family History: Family History Father No problems noted. Mother No problems noted. <VLAD Moran - Last Filed: 05/28/21 12:40> Surgical History: Surgical History H/O carotid endarterectomy H/O colonoscopy History of hip replacement History of liver biopsy History of revision of total hip arthroplasty Hx of lumbar discectomy S/P popliteal-distal bypass <VLAD Moran - Last Filed: 05/28/21 12:40> Social History: Social History Household Members: Other Household Members Other:: Housing[facility] Are you a primary home care assistant to a significant other at home: No Do you presently have visiting nurse or other home services: Yes (visiting nurse when was at home) Unable to assess alcohol history related to: Unknown Alcohol intake: never Patient Tobacco Use Status: Never used Tobacco Tobacco use type: Cigarette Years Smoked: 62 e-Cigarette/Vaping Use: Currently Using Second Hand Smoke Exposure: No Advance Directives Date on File: 05/06/20 service: No Current occupational status: retired 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 <VLAD Moran Last Filed: 05/28/21 12:40> Meds Allergies/Adverse reactions: Allergies Allergy/AdvReac Type Severity Reaction Status Date / Time diazepam [DIAZEPAM] Allergy Severe RASH Verified 06/20/21 09:44 Zelxdmc-OVE-DjK Reductase Allergy Severe Muscle Pain Verified 06/20/21 09:44 Inhibitor [FYVBRCL-AVK-ANI REDUCTASE INHIBITOR] <VLAD Moran - Last Filed: 05/28/21 12:40> Home medications: Home Medications Medication Instructions Recorded Confirmed Last Taken Type ascorbic acid (vitamin C) 1,000 mg 1,000 mg PO DAILY tab 03/09/20 06/20/21 04/29/21 History tablet aspirin 81 mg tablet,delayed 81 mg PO DAILY 03/09/20 06/20/21 04/28/21 History release cholecalciferol (vitamin D3) 250 250 mcg PO DAILY 03/09/20 06/20/21 04/29/21 History mcg (10,000 unit) capsule dtmjxzbz-wil-dwnzm acid 0.4 1 tab PO DAILY 03/09/20 06/20/21 04/29/21 History mg-lycopene 300 mcg-lutein 250 mcg tablet (Centrum Silver) lisinopril 5 mg tablet 1 tab PO DAILY 01/02/21 06/20/21 04/29/21 History Lactobacillus acidophilus 10 10,000 mmu cells PO DAILY 05/07/21 06/20/21 Unknown History billion cell capsule (Probiotic) amlodipine 10 mg tablet 10 mg PO BEDTIME 05/07/21 06/20/21 Unknown History calcitonin (salmon) 200 1 spray INTRANASAL DAILY 05/07/21 06/20/21 Unknown History unit/actuation nasal spray evolocumab 140 mg/mL subcutaneous 140 mg SUBCUT Q2W 05/07/21 06/20/21 05/17/21 History pen injector (Repatha SureClick) ferrous sulfate 325 mg (65 mg 325 mg PO DAILY 05/07/21 06/20/21 Unknown History iron) tablet collagenase clostridium histo. 250 1 appl TOPICAL BID 05/24/21 06/20/21 Unknown History unit/gram topical ointment (Santyl) hydralazine 100 mg tablet 50 mg PO TID 05/24/21 06/20/21 Unknown History tamsulosin 0.4 mg capsule 0.4 mg PO BEDTIME 05/24/21 06/20/21 Unknown History carvedilol 6.25 mg tablet 6.25 mg PO BID 06/20/21 06/20/21 Unknown History <VLAD Moran - Last Filed: 05/28/21 12:40> Assessment and Plan (1) Decubitus ulcer: Plan 81 year old female from nursing facility with imaging showing pathologic coccyx fracture in the setting of osteomyelitis, seen by ID and got Zyvox. Unable to assess this patient because [facility]. Last seen by us in NOV 2019. <VLAD Moran - Last Filed: 05/28/21 12:40>
== END 2021-07-27 16:00 | disposition home or self-care (01) ==
LOC: HO.WCC 12:51
PROVIDERS: PCP Family Medicine; Visit Provider Surgery
DX: L89.154 Pressure ulcer of sacral region, stage 4 (principal); I12.9 Hypertensive chronic kidney disease with stage 1 through stage 4 chronic kidney disease, or unspecified chronic kidney disease; R32 Unspecified urinary incontinence; N17.9 Acute kidney failure, unspecified; Z79.899 Other long term (current) drug therapy; Z87.891 Personal history of nicotine dependence; Z85.6 Personal history of leukemia
CPT/HCPCS: 11043; 11046; 97605; 99213

== ENCOUNTER → 2021-07-04 15:36 | Outpatient (BNVA) | payer MEDICARE, SELFPAY | PROVIDERS: PCP Family Medicine; Visit Provider Internal Medicine | DX: I25.10 Atherosclerotic heart disease of native coronary artery without angina pectoris (principal); I73.9 Peripheral vascular disease, unspecified; I10 Essential (primary) hypertension; E78.5 Hyperlipidemia, unspecified; F03.90 Unspecified dementia, unspecified severity, without behavioral disturbance, psychotic disturbance, mood disturbance, and anxiety; I48.0 Paroxysmal atrial fibrillation; Z98.890 Other specified postprocedural states | CPT/HCPCS: 99212 ==

== ENCOUNTER 2021-07-23 11:34 | Inpatient (IN) | payer MEDICARE, SELFPAY ==
[2021-07-23] VITALS (7 sets, daily range): BP systolic 121–188; BP diastolic 48–86; PULSE 74–104; RESP 16–22; TEMP 36.6–38.4; O2SAT 93–99; BMI 23.2; BMI 20.9
--- NOTE | ~2021-07-23 | XR_ITS ---
EXAMINATION: XR CHEST CLINICAL INFORMATION: Weakness. COMPARISON: Most recent chest radiograph dated 05/24/2021. TECHNIQUE: Frontal view of the chest was obtained. FINDINGS: No new airspace consolidation. No pleural effusion or pneumothorax. Stable cardiomediastinal silhouette. XR/XR chest 1V IMPRESSION: No acute cardiopulmonary findings.
--- NOTE | ~2021-07-23 | XR_ITS ---
EXAMINATION: XR HIP, LEFT CLINICAL INFORMATION: Pain, rule out dislocation. COMPARISON: None TECHNIQUE: Two views of the left hip. FINDINGS: The patient is status post bilateral hip arthroplasty and posterior lumbar spine fusion. The visualized hardware appears intact without abnormality. There is no acute fracture. A right iliac stent is noted in place. The soft tissues are unremarkable. XR/XR hip LT min 2V IMPRESSION: No hardware abnormality. No acute fracture.
--- NOTE | ~2021-07-23 | CT_ITS ---
EXAMINATION: CT ABDOMEN AND PELVIS WITHOUT CONTRAST CLINICAL INFORMATION: Back pain. Wound VAC. COMPARISON: Multiple priors, most recent CT abdomen/pelvis dated 05/24/2021. TECHNIQUE: Multidetector volumetric imaging was performed from the superior aspect of the liver through the pubic symphysis. Sagittal and coronal reformatted images were obtained on the technologist's workstation. This CT examination was performed using dose optimization techniques as appropriate, variously including the following: *Automated exposure control *Adjustment of mA and/or kV according to patient size (this includes techniques or standardized protocols for targeted exams where dose is matched to indication/reason for exam; i.e. extremities or head) *Use of iterative reconstruction technique DLP: 514 mGy-cm FINDINGS: LUNG BASES: The visualized lung bases are unremarkable. LIVER, GALLBLADDER, AND BILIARY TREE: The liver is normal in size, shape, and attenuation. No focal hepatic lesion or biliary ductal dilatation is present. No radiopaque gallstone. Mild edema adjacent to the gallbladder, unchanged when compared to the prior examination. PANCREAS: Atrophic. SPLEEN: Unremarkable. ADRENAL GLANDS: Unremarkable. KIDNEYS AND URETERS: The kidneys are normal in size, shape, and attenuation. No hydronephrosis, hydroureter, or calculi seen. Simple cysts within the left midpole and right lower pole, unchanged. Small nonobstructing renal stones are unchanged. Vascular calcifications are again noted. Nonspecific bilateral perinephric stranding is redemonstrated. BLADDER: Partially obscured and unremarkable. GASTROINTESTINAL TRACT: Chronic diverticulosis without evidence of acute diverticulitis. No significant bowel wall thickening or inflammatory change. No small or large bowel obstruction. Unremarkable appendix. PERITONEAL CAVITY: No intra-abdominal free air or free fluid. No intra-abdominal mass or organized fluid collection/abscess formation. ABDOMINAL WALL: No significant abdominal wall hernia. Redemonstration of a sacral decubitus ulcer with adjacent skin thickening, increased in prominence when compared to the prior examination. LYMPH NODES: No significant lymphadenopathy, however, evaluation is limited without IV contrast. VASCULAR: Atherosclerotic calcifications. No abdominal aortic dilatation. PELVIC VISCERA: The uterus and adnexa are unremarkable. OSSEOUS STRUCTURES: Redemonstration of a sacral fracture at the level of S4-S5 in unchanged anatomic alignment. This is adjacent to the decubitus ulcer. No definite erosion, however, osteomyelitis could be considered given the proximity to the ulcer. CT/CT abdomen pelvis wo con IMPRESSION: 1. Increased prominence of the sacral decubitus ulcer with redemonstration of an underlying fracture. No definite erosion, however, osteomyelitis could be considered given the proximity to the soft tissue ulceration. 2. Additional chronic findings are unchanged. Fleischner guidelines were followed.
--- NOTE | 2021-07-23 11:48 | PC.NURSE ---
pt a&o, denies pain at this time vss, awaiting provider
--- NOTE | 2021-07-23 11:54 | ED_ITS ---
HPI - Extremity Problem General Chief complaint: Extremity Injury, Lower Stated complaint: hip pain Time Seen by Provider: 07/23/21 11:47 Source: patient and old records reviewed Mode of arrival: EMS Limitations: other (patient is poor historian - states her told her she had to come) History of Present Illness HPI Narrative: EMS was told was worried she dislocated L hip MD Complaint: extremity pain Onset (ago): hour(s) Pain Consistency: constant Location: left and lower extremity (hip) Quality: dull Radiation: none Relieving factors: immobilization Exacerbating factors: weight bearing Associated symptoms: denies other symptoms Context: other (hx of chronic hip dislocations doesn't remember injury or trauma and isn't totally sure why she is here but does have left hip pain) Related Data Home Medications Medication Instructions Recorded Confirmed ascorbic acid (vitamin C) 1,000 mg 1,000 mg PO DAILY tab 03/09/20 07/23/21 tablet aspirin 81 mg tablet,delayed 81 mg PO DAILY 03/09/20 07/23/21 release cholecalciferol (vitamin D3) 250 250 mcg PO DAILY 03/09/20 07/23/21 mcg (10,000 unit) capsule pffomklj-tdy-nuyku acid 0.4 1 tab PO DAILY 03/09/20 07/23/21 mg-lycopene 300 mcg-lutein 250 mcg tablet (Centrum Silver) Lactobacillus acidophilus 10 10,000 mmu cells PO DAILY 05/07/21 07/23/21 billion cell capsule (Probiotic) amlodipine 10 mg tablet 10 mg PO BEDTIME 05/07/21 07/23/21 calcitonin (salmon) 200 1 spray INTRANASAL DAILY 05/07/21 07/23/21 unit/actuation nasal spray evolocumab 140 mg/mL subcutaneous 140 mg SUBCUT Q2W 05/07/21 07/23/21 pen injector (Repatha SureClick) ferrous sulfate 325 mg (65 mg 325 mg PO DAILY 05/07/21 07/23/21 iron) tablet tamsulosin 0.4 mg capsule 0.4 mg PO BEDTIME 05/24/21 07/23/21 carvedilol 6.25 mg tablet 6.25 mg PO BID 06/20/21 07/23/21 donepezil 10 mg tablet 10 mg PO DAILY 06/26/21 07/23/21 lisinopril 5 mg tablet 5 mg PO DAILY 07/04/21 07/23/21 Previous Rx's Medication Instructions Recorded clonazepam 0.5 mg tablet 1 mg PO BEDTIME #30 tab 05/15/21 omeprazole 20 mg capsule,delayed 20 mg PO DAILY@0630 #30 cap 05/15/21 release dressing,qditjrar-frukzx-nnp 1 ea TOPICAL .once a day #50 ea 06/21/21 alginate-carboxymethylcellulose 4 X 4 solifenacin 10 mg tablet (Vesicare) 10 mg PO DAILY 30 Days #30 tab 06/26/21 Allergies Allergy/AdvReac Type Severity Reaction Status Date / Time diazepam [DIAZEPAM] Allergy Severe RASH Verified 07/04/21 15:41 Zcdwwyu-RZM-PhI Reductase Allergy Severe Muscle Pain Verified 07/04/21 15:41 Inhibitor [[id number] REDUCTASE INHIBITOR] Review of Systems Review of Systems: Constitutional : No Fever, No Chills ENT/Mouth : No Ear Pain, No Hoarseness, No sore throat Eyes: No Eye Pain, No Swelling, No Redness, No Foreign Body Cardiovascular : No Chest Pain, No SOB Respiratory : No Cough, No Dyspnea Gastrointestinal : No Nausea, No Vomiting, No Diarrhea, No abdominal Pain Genitourinary : No Dysuria, No Hematuria Musculoskeletal : positive joint pain, No Myalgias, No Joint Swelling Skin : No Skin lacerations, No rash Neuro : No Weakness, No Numbness, No Loss of Consciousness, No Dizziness, No Headache Psych : No Anxiety/Panic, No Depression Heme/Lymph: no easy bruising, no Lymphadenopathy Endocrine : No Polyuria, No Polydipsia All other systems reviewed and are negative [facility] Past Medical History Medical History Afib Anemia Anemia CHF (congestive heart failure) Chronic kidney disease CLL (chronic lymphocytic leukemia) Coronary artery calcification seen on CAT scan COVID-19 vaccine series completed Decubitus ulcer Decubitus ulcer of back, stage 3 Dementia Essential hypertension Hx of reduction of closed dislocation Hyperlipidemia Hypotension NSTEMI (non-ST elevated myocardial infarction) Osteomyelitis Peripheral artery disease Peripheral vascular disease Pulmonary fibrosis Ulcerative colitis Vertigo VRE bacteremia Surgical History H/O carotid endarterectomy H/O colonoscopy History of hip replacement History of liver biopsy History of revision of total hip arthroplasty Hx of lumbar discectomy S/P popliteal-distal bypass Family History Family History Father No problems noted. Mother No problems noted. Social History Social History Household Members: Other Household Members Other:: Housing: Skilled Nursing Are you a primary childcare teacher to a significant other at home: No Do you presently have visiting nurse or other home services: Yes (visiting nurse when was at home) Unable to assess alcohol history related to: Unknown Alcohol intake: never Patient Tobacco Use Status: Never used Tobacco Tobacco use type: Cigarette Years Smoked: 62 e-Cigarette/Vaping Use: Currently Using Second Hand Smoke Exposure: No Advance Directives: Yes Advance Directives on File: Yes Advance Directives Date on File: 01/03/21 service: No Current occupational status: retired 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 Physical Exam Vital Signs: Vital Signs: Last Vital Signs Temp 97.9 F 07/23/21 11:43 Pulse 74 07/23/21 11:43 Resp 18 07/23/21 11:43 BP 143/48 H 07/23/21 11:43 Pulse Ox 95 07/23/21 11:43 BMI result Body Mass Index 23.2 Appearance: Mild lethargy Oriented X3. No acute distress. Eyes: Pupils equal, round and reactive to light. ENT: Pharynx mild dry MM Neck: Normal inspection. Neck supple. CVS: Normal heart rate and rhythm. Pulses normal. Respiratory: No respiratory distress. Breath sounds normal. Abdomen: Soft and nontender. laying on left side Skin: Skin warm and dry. Normal skin color. Normal skin turgor. Extremities: No lower extremity edema. wound vac on sacrum - pump is on yellow/brown drainage in tube, surrounding erythema but minimal Neuro: Oriented X 3. No motor deficit. No sensory deficit. Course Course Course Narrative: xray negative for hip fracture/dislocation spoke to Shekhar - cannot get her to the commode on his own at this time, with the wound vac the patient needs more help at home, [facility] notes that the patient should get xray of L hip. Has been c/o pain with any turning for a week. Wound VAC was installed on 07/08. States she forgets she is attached to it sometimes and walks away with it. Went to rehab in past at [facility]. Patient has not been eating and taking care of herself. Spouse very resistant to rehab at this time on conversation again I assured him we are looking for medical reasons first but if negative she cannot go home like this and will need rehab. labs, CT scan ordered notified WBC count 40k - infection suspected 110pm cultures and lactic were ordered, empiric cefepime ordered, would need linezolid as well given hx of VRE , does have hx of CLL but most recent WBC counts are normal given high WBC count with left shift with cultures in past of E. Coli, pseudomonas, VRE bacteremia will order cefepime and linezolid and admit for further management. H/H stable for patient. patient is alert, suprised she is sick at this time - aware of pending admit and concern for infection MDM - Extremity (Nontraumatic) MDM Narrative Medical decision making narrative: 81 yo female with hx of UTI, HTN, sacral wound with wound vac in place, HTN, anemia, PAF, CAD, recurrent L hip dislocations with prosthetic who comes in with c/o L hip pain atraumatic - distal NV intact, questioning another dislocation. She is slightly confused why she ended up here. Will obtain plain film xray to evaluate for dislocation. Lab Data Result diagrams: 07/23/21 12:53 07/23/21 12:53 Labs: Lab Results 07/23/21 07/23/21 07/23/21 Range/Units 12:52 12:53 12:53 WBC 40.9 H* (4.8-10.8) X10*3/uL RBC 2.95 L (4.20-5.50) X10*6/uL Hgb 8.9 L (12.0-16.0) g/dl Hct 27.4 L (37.0-47.0) % MCV 92.9 (80.0-98.0) fL MCH 30.2 (27.0-33.0) pg MCHC 32.5 (31.0-35.0) g/dl RDW 14.7 (11.0-16.0) % Plt Count 363 (160-400) X10*3/uL MPV 8.9 L (9.4-12.3) fL Immature Gran % (Auto) 1.7 H (0.0-0.4) % Neut % (Auto) 96.1 H (45-73) % Lymph % (Auto) 0.9 L (20-40) % [place] % (Auto) 1.1 L (2-11) % Eos % (Auto) 0.0 (0-4) % Baso % (Auto) 0.2 (0-2) % Lymph # (Auto) 0.4 L (1.2-4.9) X10*3/uL [place] # (Auto) 0.4 (0.1-1.2) X10*3/uL Eos # (Auto) 0.0 (0.0-0.4) X10*3/uL Baso # (Auto) 0.1 (0.0-0.2) X10*3/uL Abs Immat Gran (auto) 0.70 H (0.00-0.03) X10*3/uL Absolute Neuts (auto) 39.2 H (2.0-8.3) x10*3/uL Absolute Nucleated RBC 0.000 (0.0-0.012) X10*3/uL Nucleated RBC % (auto) 0.0 (0.0-0.2) /100WBC PT 14.8 H (9.9-13.0) SEC INR 1.3 H (0.9-1.1) Sodium (135-145) mmol/L Potassium (3.3-5.1) mmol/L Chloride (96-108) mmol/L Carbon Dioxide (22-29) mmol/L Anion Gap (12-20) BUN (9-16) mg/dL Creatinine (0.5-1.4) mg/dL Estim Creat Clear Calc Estimated GFR Random Glucose (60-115) mg/dL Lactic Acid 3.0 H* (0.5-2.0) mmol/L Calcium (8.4-10.2) mg/dL Magnesium (1.6-2.6) mg/dL Total Bilirubin (0.0-1.0) mg/dL Direct Bilirubin (0.0-0.5) mg/dL AST (5-31) U/L ALT (0-31) U/L Alkaline Phosphatase (39-117) U/L Total Protein (6.5-8.0) g/dL Albumin (3.5-5.0) g/dL Lipase (8-78) U/L COVID-19 (GENIE) (Negative) COVID-19 Clin Com 07/23/21 07/23/21 Range/Units 12:53 12:54 WBC (4.8-10.8) X10*3/uL RBC (4.20-5.50) X10*6/uL Hgb (12.0-16.0) g/dl Hct (37.0-47.0) % MCV (80.0-98.0) fL MCH (27.0-33.0) pg MCHC (31.0-35.0) g/dl RDW (11.0-16.0) % Plt Count (160-400) X10*3/uL MPV (9.4-12.3) fL Immature Gran % (Auto) (0.0-0.4) % Neut % (Auto) (45-73) % Lymph % (Auto) (20-40) % [place] % (Auto) (2-11) % Eos % (Auto) (0-4) % Baso % (Auto) (0-2) % Lymph # (Auto) (1.2-4.9) X10*3/uL [place] # (Auto) (0.1-1.2) X10*3/uL Eos # (Auto) (0.0-0.4) X10*3/uL Baso # (Auto) (0.0-0.2) X10*3/uL Abs Immat Gran (auto) (0.00-0.03) X10*3/uL Absolute Neuts (auto) (2.0-8.3) x10*3/uL Absolute Nucleated RBC (0.0-0.012) X10*3/uL Nucleated RBC % (auto) (0.0-0.2) /100WBC PT (9.9-13.0) SEC INR (0.9-1.1) Sodium 136 (135-145) mmol/L Potassium 4.3 (3.3-5.1) mmol/L Chloride 103 (96-108) mmol/L Carbon Dioxide 20 L (22-29) mmol/L Anion Gap 17 (12-20) BUN 50 H (9-16) mg/dL Creatinine 1.57 H (0.5-1.4) mg/dL Estim Creat Clear Calc 28.3 Estimated GFR 32 Random Glucose 137 H (60-115) mg/dL Lactic Acid (0.5-2.0) mmol/L Calcium 8.6 (8.4-10.2) mg/dL Magnesium 2.2 (1.6-2.6) mg/dL Total Bilirubin 0.5 (0.0-1.0) mg/dL Direct Bilirubin 0.3 (0.0-0.5) mg/dL AST 32 H D (5-31) U/L ALT 22 (0-31) U/L Alkaline Phosphatase 171 H D (39-117) U/L Total Protein 5.8 L (6.5-8.0) g/dL Albumin 2.6 L (3.5-5.0) g/dL Lipase 8 (8-78) U/L COVID-19 (GENIE) Negative (Negative) COVID-19 Clin Com See Note Discharge Plan Discharge Clinical Impression: Weakness, Acidosis, lactic Leukocytosis Qualifiers: Leukocytosis type: unspecified Qualified Code(s): D72.829 - Elevated white blood cell count, unspecified Patient Disposition: Admitted As Inpatient
[2021-07-23 12:59] LABS: Basophils Absolute Auto 0.1 X10*3/uL (0.0-0.2); Basophils Percent Auto 0.2 % (0-2); Hematocrit 27.4 % (37.0-47.0); Hemoglobin 8.9 g/dl (12.0-16.0); Imm Gran Pct Auto 1.7 % (0.0-0.4); Lymphocytes Absolute Auto 0.4 X10*3/uL (1.2-4.9); Lymphocytes Percent Auto 0.9 % (20-40); MANUAL DIFF FLAG NO; Mean Corpuscular HGB Conc 32.5 g/dl (31.0-35.0); Mean Corpuscular Hemoglobin 30.2 pg (27.0-33.0); Mean Corpuscular Volume 92.9 fL (80.0-98.0); Mean Platelet Volume 8.9 fL (9.4-12.3); Monocytes Absolute Auto 0.4 X10*3/uL (0.1-1.2); Monocytes Percent Auto 1.1 % (2-11); Neutrophils Absolute Auto 39.2 x10*3/uL (2.0-8.3); Neutrophils Percent Auto 96.1 % (45-73); Platelet Count 363 X10*3/uL (160-400); Red Blood Count 2.95 X10*6/uL (4.20-5.50); Red Cell Distribution Width 14.7 % (11.0-16.0); SCAN SMEAR FLAG 1
[2021-07-23 13:04] LABS: White Blood Count 40.9 X10*3/uL (4.8-10.8)
[2021-07-23 13:05] LABS: INTERNATIONAL NORM RATIO 1.3 (0.9-1.1); Prothrombin Time 14.8 SEC (9.9-13.0)
[2021-07-23 13:18] LABS: Alanine Aminotransferase 22 U/L (0-31); Albumin Level 2.6 g/dL (3.5-5.0); Alkaline Phosphatase 171 U/L (39-117); Anion Gap 17 (12-20); Aspartate Amino Transferase 32 U/L (5-31); Bilirubin Direct 0.3 mg/dL (0.0-0.5); Bilirubin Total 0.5 mg/dL (0.0-1.0); Blood Urea Nitrogen 50 mg/dL (9-16); Calcium 8.6 mg/dL (8.4-10.2); Carbon Dioxide 20 mmol/L (22-29); Chloride 103 mmol/L (96-108); Creatinine Clr Calc Pharmacy 28.3; Estimated Glomerular Filt Rate 32; Glucose Random 137 mg/dL (60-115); Lipase 8 U/L (8-78); Magnesium 2.2 mg/dL (1.6-2.6); Potassium 4.3 mmol/L (3.3-5.1); Sodium 136 mmol/L (135-145); Total Protein 5.8 g/dL (6.5-8.0)
[2021-07-23 13:22] LABS: COVID-19 Test Negative (Negative); IDNOW Serial# 16C4AD1C
[2021-07-23] MEDS: cefEPime HCl 2 GM in 0.9 % Sodium Chloride 50 ML IV (13:41)
[2021-07-23] MEDS: 0.9 % Sodium Chloride 500 ML IV ×2 (13:42→13:45)
--- NOTE | 2021-07-23 13:48 | PC.NURSE ---
pt medicated per order, pharmacist in room to update med req
--- NOTE | 2021-07-23 14:13 | PHA.MEDREC ---
Pharmacy Consult ? Medication Reconciliation Pharmacy has completed the medication reconciliation.
[2021-07-23 14:57] LABS: Reflex Lactate? Lactic Acid Added
[2021-07-23 14:58] LABS: Appearance Urine HAZY; Color Urine YELLOW; Glucose Urine UA NEG (NEG); Leukocyte Esterase Urine 2+ (NEG); Nitrite Urine NEG (NEG); PH 6.5 (5.0-8.0); Specific Gravity - Urine 1.015 (1.005-1.025); UACC Culture Trigger YES; Urine Blood TRACE (NEG); Urine Ketones NEG (NEG); Urine Protein 2+ MG/DL (NEG-TRACE)
[2021-07-23 15:07] LABS: Bacteria Urine 4+ /LPF; RBC Urine 0-2 /HPF (0); Squamous Epithelial Cell Urine TRACE /LPF
--- NOTE | 2021-07-23 15:18 | PC.NURSE ---
PHARM CALL FOR ABX
[2021-07-23] MEDS: Linezolid/D5W 600 MG/300 ML PIGGYBACK 300 MG IV (15:24)
--- NOTE | 2021-07-23 15:26 | PM.IMHP ---
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 She lives at home with Uriel whom I could not reach to get a leodan direct history as patient is not able to provide good history in light her dementia. According the ED record and from limited information from patient, she has been complaining about left hip pain, especially with movmemt, and in light of prior histories of left dislocations there was concern of yet another episode, She recently had a wound vac put on sacral ulcer on 07/08 and has been serviced by visiting nurses who were also concern of her hip and wanted xray done--she has not sustained any trauma as of late. Her Uriel has been having difficulty caring for her at home, getting her to commode with wound vac, her apetite has been poor. She was discharged from the hospital last middle of last month and at that time went to rehab. Her husban is presently resistant to the idea of her returning to rehab. Work in ED CXR unremarkable, Hip xray show no dislocation, CTA/ pelvis showed increased sacral ulcer size with fracture that has been previously noted. WBC is 40K, Lactic 3, Cr.. She is clearly septic. She has history of pseudomonas in sacral ulcer. She has received Cefepime in the Ed. Review of Systems Review of Systems: Gen: no fever Resp: no sob, no cough CV: no chest, no MCKEON, no leg edema GI: No n/v, no abd pain MSK: left hip pain Neuro: No confusion Yes all other systems are reviewed and are negative [facility] Medical History Afib Anemia Anemia CHF (congestive heart failure) Chronic kidney disease CLL (chronic lymphocytic leukemia) Coronary artery calcification seen on CAT scan COVID-19 vaccine series completed Decubitus ulcer Decubitus ulcer of back, stage 3 Dementia Essential hypertension Hx of reduction of closed dislocation Hyperlipidemia Hypotension NSTEMI (non-ST elevated myocardial infarction) Osteomyelitis Peripheral artery disease Peripheral vascular disease Pulmonary fibrosis Ulcerative colitis Vertigo VRE bacteremia Family History Father No problems noted. Mother No problems noted. Surgical History H/O carotid endarterectomy H/O colonoscopy History of hip replacement History of liver biopsy History of revision of total hip arthroplasty Hx of lumbar discectomy S/P popliteal-distal bypass Social History Household Members: Other Household Members Other:: Housing: Prison Are you a primary career services coordinator to a significant other at home: No Do you presently have visiting nurse or other home services: Yes (visiting nurse when was at home) Unable to assess alcohol history related to: Unknown Alcohol intake: never Patient Tobacco Use Status: Never used Tobacco Tobacco use type: Cigarette Years Smoked: 62 e-Cigarette/Vaping Use: Currently Using Second Hand Smoke Exposure: No Advance Directives: Yes Advance Directives on File: Yes Advance Directives Date on File: 01/03/21 service: No Current occupational status: retired 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 Meds Allergies Allergy/AdvReac Type Severity Reaction Status Date / Time diazepam [DIAZEPAM] Allergy Severe RASH Verified 07/04/21 15:41 Lelgdwg-HOD-BeL Reductase Allergy Severe Muscle Pain Verified 07/04/21 15:41 Inhibitor [[id number] REDUCTASE INHIBITOR] Active Medications: Current Medications Pharmacy Consult (Consult Rx Perform Med Rec) 1 each MISCELLANE ONCE PRN PRN Reason: Consult order Home Medications Medication Instructions Recorded Confirmed Last Taken Type ascorbic acid (vitamin C) 1,000 mg 1,000 mg PO DAILY tab 03/09/20 07/23/21 04/29/21 History tablet aspirin 81 mg tablet,delayed 81 mg PO DAILY 03/09/20 07/23/21 04/28/21 History release cholecalciferol (vitamin D3) 250 250 mcg PO DAILY 03/09/20 07/23/21 04/29/21 History mcg (10,000 unit) capsule evwzhbjl-uzn-zjwcq acid 0.4 1 tab PO DAILY 03/09/20 07/23/21 04/29/21 History mg-lycopene 300 mcg-lutein 250 mcg tablet (Centrum Silver) Lactobacillus acidophilus 10 10,000 mmu cells PO DAILY 05/07/21 07/23/21 Unknown History billion cell capsule (Probiotic) amlodipine 10 mg tablet 10 mg PO BEDTIME 05/07/21 07/23/21 Unknown History calcitonin (salmon) 200 1 spray INTRANASAL DAILY 05/07/21 07/23/21 Unknown History unit/actuation nasal spray evolocumab 140 mg/mL subcutaneous 140 mg SUBCUT Q2W 05/07/21 07/23/21 05/17/21 History pen injector (Repatha SureClick) ferrous sulfate 325 mg (65 mg 325 mg PO DAILY 05/07/21 07/23/21 Unknown History iron) tablet tamsulosin 0.4 mg capsule 0.4 mg PO BEDTIME 05/24/21 07/23/21 Unknown History carvedilol 6.25 mg tablet 6.25 mg PO BID 06/20/21 07/23/21 Unknown History donepezil 10 mg tablet 10 mg PO DAILY 06/26/21 07/23/21 Unknown History lisinopril 5 mg tablet 5 mg PO DAILY 07/04/21 07/23/21 Unknown History Physical Exam Vital Signs and Narrative: Vital Signs: Last Vital Signs Temp 98.4 F 07/23/21 14:45 Pulse 91 07/23/21 14:45 Resp 19 07/23/21 14:45 BP 159/85 H 07/23/21 14:45 Pulse Ox 96 07/23/21 14:45 BMI result Body Mass Index 23.2 Const: Other: Constitutional: Alert, in no distress, mild confusion Mental Status: Oriented to person, place and time. Eyes: Pupils are equal, round and reactive to light. Ear, Nose and Throat: Oropharynx clear, mucous membranes moist. Respiratory: Clear to auscultation. No wheezing, rales or rhonchi. Cardiovascular: S1 S2 regular. No murmurs, rubs or gallops. Gastrointestinal: Abdomen soft, non-tender, non-distended. Normal bowel sounds.? Neurologic: Cranial nerves II-XII grossly intact. No focal neurological deficits. Moves all extremities spontaneously.? Skin: No rashes or lesions.? There is a wound vac dressing on the sacral ulcer Musculoskeletal: No cyanosis or clubbing. Psychiatric: Normal mood and affect? Results Labs CBC and Chem 7: 07/23/21 12:53 07/23/21 12:53 Labs: Laboratory Results - last 24 hr 07/23/21 07/23/21 07/23/21 12:52 12:53 12:53 MCV 92.9 MCH 30.2 MCHC 32.5 RDW 14.7 Plt Count 363 MPV 8.9 L Immature Gran % (Auto) 1.7 H Neut % (Auto) 96.1 H Lymph % (Auto) 0.9 L [place] % (Auto) 1.1 L Eos % (Auto) 0.0 Baso % (Auto) 0.2 Lymph # (Auto) 0.4 L [place] # (Auto) 0.4 Eos # (Auto) 0.0 Baso # (Auto) 0.1 Abs Immat Gran (auto) 0.70 H Absolute Neuts (auto) 39.2 H Absolute Nucleated RBC 0.000 Nucleated RBC % (auto) 0.0 PT 14.8 H INR 1.3 H Anion Gap Estim Creat Clear Calc Estimated GFR Random Glucose Lactic Acid 3.0 H* Calcium Magnesium Total Bilirubin Direct Bilirubin AST ALT Alkaline Phosphatase Total Protein Albumin Lipase Urine Color Urine Appearance Urine pH Ur Specific [place] Urine Protein Urine Glucose (UA) Urine Ketones Urine Blood Urine Nitrite Ur Leukocyte Esterase Urine RBC Urine WBC Ur Squamous Epith Cells Urine Bacteria COVID-19 (GENIE) COVID-19 Clin Com 07/23/21 07/23/21 07/23/21 12:53 12:54 14:51 MCV MCH MCHC RDW Plt Count MPV Immature Gran % (Auto) Neut % (Auto) Lymph % (Auto) [place] % (Auto) Eos % (Auto) Baso % (Auto) Lymph # (Auto) [place] # (Auto) Eos # (Auto) Baso # (Auto) Abs Immat Gran (auto) Absolute Neuts (auto) Absolute Nucleated RBC Nucleated RBC % (auto) PT INR Anion Gap 17 Estim Creat Clear Calc 28.3 Estimated GFR 32 Random Glucose 137 H Lactic Acid Calcium 8.6 Magnesium 2.2 Total Bilirubin 0.5 Direct Bilirubin 0.3 AST 32 H D ALT 22 Alkaline Phosphatase 171 H D Total Protein 5.8 L Albumin 2.6 L Lipase 8 Urine Color YELLOW Urine Appearance HAZY Urine pH 6.5 Ur Specific [place] 1.015 Urine Protein 2+ H Urine Glucose (UA) NEG Urine Ketones NEG Urine Blood TRACE Urine Nitrite NEG Ur Leukocyte Esterase 2+ H Urine RBC 0-2 Urine WBC 5-9 H Ur Squamous Epith Cells TRACE Urine Bacteria 4+ COVID-19 (GENIE) Negative COVID-19 Clin Com See Note Imaging Radiologist's Impressions: Impressions Hip X-Ray 07/23/21 12:00 IMPRESSION: No hardware abnormality. No acute fracture. Abdomen/Pelvis CT 07/23/21 13:26 IMPRESSION: 1. Increased prominence of the sacral decubitus ulcer with redemonstration of an underlying fracture. No definite erosion, however, osteomyelitis could be considered given the proximity to the soft tissue ulceration. 2. Additional chronic findings are unchanged. Fleischner guidelines were followed. Chest X-Ray 07/23/21 13:27 IMPRESSION: No acute cardiopulmonary findings. Assessment and Plan (1) UTI (urinary tract infection): Status: Acute (2) Anemia: Status: Acute (3) Ulcer of sacral region, stage 4: Status: Acute (4) Sepsis: Status: Acute (5) Lactic acidosis: Status: Acute Plan 81-year-old female with a past medical history of hypertension, hyperlipidemia, CAD, peripheral vascular disease, paroxysmal AFib, CKD, anemia, dementia, recent history of UTI-finished course of antibiotics; history of decubitus ulcer/VRE bacteremia previously treated with zyvox, pulmonary fibrosis, ulcerative colitis, CLL, recurrent left hip disloscation presenting with left hip and found to be septic likely of decub ulcer source, UTI and she is failing at home. Sepsis d/t infected sacral ulcer-- give prior history of VRE and Pseudomonas will treat with IV Zyvox, Cefepime, ID and wound consult. Follow cultures. No severe sepsis, renal failure is chronic UTI--Same Abx as above Anemia of chronic disease--no acute component, monitor if drops further consider transufison CKD3--Creatine is witin baseline History of hypertension: Continue Norvasc and Coreg History of peripheral vascular disease/CAD:? She does not tolerate statin, on Repatha SureClick (not on formulary), Aspirin and BB History of paroxysmal AFib: Rate controlled.? Not on anticoagulation secondary to anemia, high tendency to bleed.? Coreg for rate control Dementia--Aricept DVT prophylaxis:? SCD boots Code status:? DNI only. Not DNR!! Admission will span at least 2 midnights to treat sepsis with IV antibiotics Quality Stroke Does the patient have a stroke diagnosis?: No VTE Prior VTE?: No VTE Risk Level:: Medical - moderate - high VTE Device Contraindication: N/A - Device Ordered VTE Drug Contraindication: Treatment Not Tolerated
--- NOTE | 2021-07-23 16:43 | PC.NURSE ---
PT CAME IN FROM HOME, PT HAS HX OF HIP DISLOCATION WHICH IS THE REASON SHE WAS SENT. PT ENDED UP BEING A CANIDATE FOR SEPSIS. FLUIDS ANTIBIOTICS GIVEN TEMP SENSING DARNELL PLACED. PATIENT ARRIVED WITH A WOUND VAC IN PLACE WITH IS CLEAN DRY AND INTACT ON HER BUTTOCK
[2021-07-23 17:13] LABS: ~Lactic Acid-LAB USE ONLY 1.9 mmol/L (0.5-2.0)
[2021-07-23] MEDS: clonazePAM 1 MG TABLET PO (19:49)
[2021-07-23] MEDS: Acetaminophen 325 MG TABLET 650 MG PO (19:50)
[2021-07-23] MEDS: carvediloL 6.25 MG TABLET PO (19:50)
[2021-07-23] MEDS: Tamsulosin HCL 0.4 MG CAPSULE PO (19:50)
[2021-07-23] MEDS: amLODIPine Besylate 10 MG TABLET PO (19:50)
--- NOTE | 2021-07-23 20:56 | PC.NURSE ---
I assumed nursing care of Georgina at 1900. Since that time she has been sleeping in bed, wakes to verbal stimuli. She denies pain. Respirations are non-labored. Room air sat's are 95% or better. Skin felt hot to touch. PO Temp 101 (see vital signs). PO Tylenol given. Pt takes PO meds and PO fluids without difficulty. Nursing report given to Kimberli on med surg. Will prepare pt for transport to inpatient bed.
[2021-07-23] MEDS: 0.9 % Sodium Chloride Flush 3 ML SYRINGE IVFLUSH (22:08)
--- NOTE | 2021-07-24 00:08 | MHC.PIE ---
p; blood cx positive for gram + cocci in chain. note; pt on zyvox and cefepime i; dr william notified e; will cont to monitor
[2021-07-24] MEDS: cefEPime HCl 1 GM in 0.9 % Sodium Chloride 50 ML IV ×2 (04:29→13:55)
[2021-07-24] MEDS: Linezolid/D5W 600 MG/300 ML PIGGYBACK 300 MG IV ×2 (04:59→15:30)
[2021-07-24] MEDS: Omeprazole 20 MG CAPSULE.DR PO (05:02)
[2021-07-24 05:57] LABS: Hematocrit 24.2 % (37.0-47.0); Hemoglobin 7.9 g/dl (12.0-16.0); Mean Corpuscular HGB Conc 32.6 g/dl (31.0-35.0); Mean Corpuscular Hemoglobin 30.5 pg (27.0-33.0); Mean Corpuscular Volume 93.4 fL (80.0-98.0); Mean Platelet Volume 9.5 fL (9.4-12.3); Platelet Count 337 X10*3/uL (160-400); Red Blood Count 2.59 X10*6/uL (4.20-5.50); Red Cell Distribution Width 14.7 % (11.0-16.0)
[2021-07-24 06:20] LABS: White Blood Count 33.6 X10*3/uL (4.8-10.8)
[2021-07-24 06:21] LABS: Anion Gap 13 (12-20); Blood Urea Nitrogen 46 mg/dL (9-16); Calcium 7.9 mg/dL (8.4-10.2); Carbon Dioxide 20 mmol/L (22-29); Chloride 106 mmol/L (96-108); Creatinine Clr Calc Pharmacy 30.8; Estimated Glomerular Filt Rate 36; Glucose Random 101 mg/dL (60-115); Potassium 4.3 mmol/L (3.3-5.1); Sodium 135 mmol/L (135-145)
--- NOTE | 2021-07-24 06:26 | MHC.PIE ---
p; wbc 33.6 i; dr william notified e; will cont to monitor
[2021-07-24 07:23] VITALS: BP 140/59; PULSE 67; RESP 17; TEMP 37.1; O2SAT 94
--- NOTE | 2021-07-24 07:42 | HO.PM.IMPN ---
Subjective Subjective Date of Service: 07/24/21 Interval History: anemia ,infected decub Review of Systems patient patient still has pain in decubtii area, denies any shortness of breath Physical Exam Vital Signs: Vital Signs: Last Vital Signs Temp 98.7 F 07/24/21 07:23 Pulse 67 07/24/21 07:23 Resp 17 07/24/21 07:23 BP 140/59 H 07/24/21 07:23 Pulse Ox 94 07/24/21 07:23 BMI result Body Mass Index 20.9 Appearance: Alert.? Oriented.? not in distress.? cvs: rrr, [id number] , no murmur res: clear to auscultation ,no rhonchii or wheezing abd: no rebound or guarding ,nt, bs present. ext pulses present , no cyanosis ,sacral Decubitus: Has wound VAC dressing on it. neuro: nonfocal. Objective Data Active Medications Acetaminophen (Acetaminophen 325 Mg Tablet) 650 mg PO Q6H PRN PRN Reason: Pain, Mild (Pain Scale 1-3) Last Admin: 07/23/21 19:50 Dose: 650 mg Documented by: ANABEL Amlodipine Besylate (Amlodipine Besylate 10 Mg Tablet) 10 mg PO BEDTIME [facility]; Protocol Last Admin: 07/23/21 19:50 Dose: 10 mg Documented by: ANABEL Ascorbic Acid (Ascorbic Acid 500 Mg Tablet) 1,000 mg PO DAILY [facility] Aspirin (Aspirin Enteric Coated 81 Mg Tablet.) 81 mg PO DAILY [facility] Calcitonin [place] (Calcitonin,[place],Synth Nasal 3.7 Ml Bottle) 1 spray NOSTRIL-B DAILY [facility] Carvedilol (Carvedilol 6.25 Mg Tablet) 6.25 mg PO BID [facility]; Protocol Last Admin: 07/23/21 19:50 Dose: 6.25 mg Documented by: ANABEL Clonazepam (Clonazepam 1 Mg Tablet) 1 mg PO BEDTIME [facility] Last Admin: 07/23/21 19:49 Dose: 1 mg Documented by: ANABEL Donepezil HCl (Donepezil Hcl 10 Mg Tablet) 10 mg PO DAILY [facility] Ferrous Sulfate (Ferrous Sulfate 324 Mg Tablet.) 324 mg PO DAILY [facility] Linezolid (Zyvox/D5w) 600 mg in 300 mls @ 300 mls/hr IV Q12H [facility] Last Infusion: 07/24/21 06:17 Dose: 0 mls/hr Documented by: EDUARD Cefepime HCl 1 gm/ Sodium (Chloride) 50 mls @ 100 mls/hr IV Q12H [facility] Last Infusion: 07/24/21 04:59 Dose: 0 mls/hr Documented by: EDUARD Melatonin (Melatonin 3 Mg Tablet) 3 mg PO BEDTIME PRN PRN Reason: Insomnia Morphine Sulfate (Morphine Sulfate 4 Mg/Ml Cartridge) 2 mg IVPUSH Q4H PRN; Protocol PRN Reason: Pain, Severe (Pain Scale 7-10) Multivitamins/Vitamin C (Multivitamin Tablet) 1 tab PO DAILY [facility] Omeprazole (Omeprazole 20 Mg Capsule.Dr) 20 mg PO DAILY@629 [facility] Last Admin: 07/24/21 05:02 Dose: 20 mg Documented by: EDUARD Pharmacy Consult (Consult Rx Perform Med Rec) 1 each MISCELLANE ONCE PRN PRN Reason: Consult order Sodium Chloride (0.9 % Sodium Chloride Flush 3 Ml Syringe) 3 ml IVFLUSH QSHIFT [facility] Last Admin: 07/23/21 22:08 Dose: 3 ml Documented by: EDUARD Tamsulosin HCl (Tamsulosin Hcl 0.4 Mg Capsule) 0.4 mg PO BEDTIME [facility] Last Admin: 07/23/21 19:50 Dose: 0.4 mg Documented by: ANABEL Vitamin D (Cholecalciferol (Vitamin D3) 25 Mcg Tablet) 25 mcg PO DAILY [facility] Labs CBC & Chem 7: 07/24/21 05:22 07/24/21 05:22 Labs: Laboratory Results - last 24 hr 07/23/21 07/23/21 07/23/21 12:52 12:53 12:53 MCV 92.9 MCH 30.2 MCHC 32.5 RDW 14.7 Plt Count 363 MPV 8.9 L Immature Gran % (Auto) 1.7 H Neut % (Auto) 96.1 H Lymph % (Auto) 0.9 L [place] % (Auto) 1.1 L Eos % (Auto) 0.0 Baso % (Auto) 0.2 Lymph # (Auto) 0.4 L [place] # (Auto) 0.4 Eos # (Auto) 0.0 Baso # (Auto) 0.1 Abs Immat Gran (auto) 0.70 H Absolute Neuts (auto) 39.2 H Absolute Nucleated RBC 0.000 Nucleated RBC % (auto) 0.0 PT 14.8 H INR 1.3 H Anion Gap Estim Creat Clear Calc Estimated GFR Random Glucose Lactic Acid 3.0 H* Lactic Acid F/U @ 2Hr Calcium Magnesium Total Bilirubin Direct Bilirubin AST ALT Alkaline Phosphatase Total Protein Albumin Lipase Urine Color Urine Appearance Urine pH Ur Specific [place] Urine Protein Urine Glucose (UA) Urine Ketones Urine Blood Urine Nitrite Ur Leukocyte Esterase Urine RBC Urine WBC Ur Squamous Epith Cells Urine Bacteria COVID-19 (EGNIE) COVID-19 Clin Com 07/23/21 07/23/21 07/23/21 12:53 12:54 14:51 MCV MCH MCHC RDW Plt Count MPV Immature Gran % (Auto) Neut % (Auto) Lymph % (Auto) [place] % (Auto) Eos % (Auto) Baso % (Auto) Lymph # (Auto) [place] # (Auto) Eos # (Auto) Baso # (Auto) Abs Immat Gran (auto) Absolute Neuts (auto) Absolute Nucleated RBC Nucleated RBC % (auto) PT INR Anion Gap 17 Estim Creat Clear Calc 28.3 Estimated GFR 32 Random Glucose 137 H Lactic Acid Lactic Acid F/U @ 2Hr Calcium 8.6 Magnesium 2.2 Total Bilirubin 0.5 Direct Bilirubin 0.3 AST 32 H D ALT 22 Alkaline Phosphatase 171 H D Total Protein 5.8 L Albumin 2.6 L Lipase 8 Urine Color YELLOW Urine Appearance HAZY Urine pH 6.5 Ur Specific [place] 1.015 Urine Protein 2+ H Urine Glucose (UA) NEG Urine Ketones NEG Urine Blood TRACE Urine Nitrite NEG Ur Leukocyte Esterase 2+ H Urine RBC 0-2 Urine WBC 5-9 H Ur Squamous Epith Cells TRACE Urine Bacteria 4+ COVID-19 (GENIE) Negative COVID-19 Clin Com See Note 07/23/21 07/24/21 07/24/21 16:52 05:22 05:22 MCV 93.4 MCH 30.5 MCHC 32.6 RDW 14.7 Plt Count 337 MPV 9.5 Immature Gran % (Auto) Neut % (Auto) Lymph % (Auto) [place] % (Auto) Eos % (Auto) Baso % (Auto) Lymph # (Auto) [place] # (Auto) Eos # (Auto) Baso # (Auto) Abs Immat Gran (auto) Absolute Neuts (auto) Absolute Nucleated RBC 0.000 Nucleated RBC % (auto) 0.0 PT INR Anion Gap 13 Estim Creat Clear Calc 30.8 Estimated GFR 36 Random Glucose 101 Lactic Acid Lactic Acid F/U @ 2Hr 1.9 Calcium 7.9 L D Magnesium Total Bilirubin Direct Bilirubin AST ALT Alkaline Phosphatase Total Protein Albumin Lipase Urine Color Urine Appearance Urine pH Ur Specific [place] Urine Protein Urine Glucose (UA) Urine Ketones Urine Blood Urine Nitrite Ur Leukocyte Esterase Urine RBC Urine WBC Ur Squamous Epith Cells Urine Bacteria COVID-19 (GENIE) COVID-19 Clin Com Microbiology Microbiology Results: Microbiology 07/23/21 13:35 Blood Culture - Preliminary Blood - Venous Prelim: GPC Gram Stain only 07/23/21 12:53 Blood Culture - Preliminary Blood - Venous Prelim: GPC Gram Stain only Assessment and Plan (1) Sepsis: Status: Acute (2) Ulcer of sacral region, stage 4: Status: Acute (3) Bacteremia: Status: Acute Plan 81-year-old female with a past medical history of hypertension, hyperlipidemia, CAD, peripheral vascular disease, paroxysmal AFib, CKD, anemia, dementia, recent history of UTI-finished course of antibiotics; 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 presenting with left hip and found to be septic likely of decub ulcer source, UTI? and she is failing at home. Sepsis d/t infected sacral ulcer-- give prior history of VRE and Pseudomonas will treat with IV Zyvox, Cefepime, ID and wound consult.? Follow cultures.? No severe sepsis, renal failure is chronic. leukocytosis trending down( last fever was07/23 101*f) gram-positive bacteremia urine culture growing Gram-negative maude Id and Wound Care evaluation noted- continue current antibiotics linezolid and cefepime day2 echo added surgery evaluation also added. UTI--Same Abx as above Anemia of chronic disease--no acute component, monitor if drops further consider transufison CKD3--Creatine is witin baseline History of hypertension: Continue Norvasc and Coreg History of peripheral vascular disease/CAD:? She does not tolerate statin, on Repatha SureClick (not on formulary), Aspirin and BB History of paroxysmal AFib: Rate controlled.? Not on anticoagulation secondary to anemia, high tendency to bleed.? Coreg for rate control Dementia--Aricept DVT prophylaxis:? SCD boots Code status:? DNI only. Not DNR!! Patient Need: Sepsis workup, bacteremia, decubitus ulcer. Patient currently on IV antibiotics. Quality Stroke Does the patient have a stroke diagnosis?: No VTE Prior VTE?: No VTE Risk Level:: Medical - moderate - high VTE Device Contraindication: N/A - Device Ordered VTE Drug Contraindication: Treatment Not Tolerated
[2021-07-24] MEDS: Multivitamin TABLET 1 TAB PO (09:56)
[2021-07-24] MEDS: Cholecalciferol (Vitamin D3) 25 MCG TABLET PO (09:57)
[2021-07-24] MEDS: Ferrous Sulfate 324 MG TABLET.DR PO (09:57)
[2021-07-24] MEDS: Aspirin Enteric Coated 81 MG TABLET.DR PO (09:57)
[2021-07-24] MEDS: Ascorbic Acid 500 MG TABLET 1000 MG PO (09:57)
[2021-07-24] MEDS: 0.9 % Sodium Chloride Flush 3 ML SYRINGE IVFLUSH ×3 (09:57→20:28)
[2021-07-24] MEDS: Donepezil HCl 10 MG TABLET PO (09:57)
[2021-07-24] MEDS: carvediloL 6.25 MG TABLET PO ×2 (09:57→20:28)
[2021-07-24 11:35] VITALS: BP 124/49; PULSE 64; RESP 17; TEMP 36.4; O2SAT 96
--- NOTE | 2021-07-24 12:34 | P.CONWO_ITS ---
History of Present Illness Data of Consult Service Date: 07/24/21 Requesting physician: Adam Marquez Primary Care Provider: Walter Braun MD HPI Reason for consult: infected wound [id number]: states she has hospitalized for fatigue and malaise. She was not eating. She is on linezolid for VRE bacteremia. She has CKD 3. Question urinary tract infection. Wound VAC on sacral ulcer. Recent CT scan shows S4-5 fracture by report. Unclear if this is osteomyelitis. See plan. Review of Systems Review of Systems: Asked a few basic questions but does not answer in the setting of dementia history. Yes Unobtainable due to mental status [facility] Medical History Afib Anemia Anemia CHF (congestive heart failure) Chronic kidney disease CLL (chronic lymphocytic leukemia) Coronary artery calcification seen on CAT scan COVID-19 vaccine series completed Decubitus ulcer Decubitus ulcer of back, stage 3 Dementia Essential hypertension Hx of reduction of closed dislocation Hyperlipidemia Hypotension NSTEMI (non-ST elevated myocardial infarction) Osteomyelitis Peripheral artery disease Peripheral vascular disease Pulmonary fibrosis Ulcerative colitis Vertigo VRE bacteremia Family History Father No problems noted. Mother No problems noted. Surgical History H/O carotid endarterectomy H/O colonoscopy History of hip replacement History of liver biopsy History of revision of total hip arthroplasty Hx of lumbar discectomy S/P popliteal-distal bypass Social History Household Members: Spouse and Family Household Members Other:: Housing: House Are you a primary clinical care manager to a significant other at home: No Do you presently have visiting nurse or other home services: Yes Unable to assess alcohol history related to: Unknown Alcohol intake: never Patient Tobacco Use Status: Never used Tobacco Tobacco use type: Cigarette Years Smoked: 62 e-Cigarette/Vaping Use: Currently Using Second Hand Smoke Exposure: No Use of substances other than those prescribed or required for medical reasons: No Currently Displaying Signs/Symptoms of Drug Intoxication Withdrawal: No Have you been hit, kicked, punched, or otherwise hurt by someone within the past year? If so, by whom?: No Do you feel safe in your current relationship?: No Current Relationship Is there a partner from a previous relationship who is making you feel unsafe now?: No Are you made to feel afraid or neglected: No Advance Directives: Yes Advance Directives on File: Yes Advance Directives Date on File: 01/03/21 Do you have thoughts of harming others: None Do you have a plan to hurt others: No Plan Recently lost weight without trying: Yes How much weight loss: 2-13 pounds Eating poorly because of decreased appetite: Yes Nutrition screen score: 4 Nutrition Risks: No Nutritional Risk Patient : No : No Poor oral hygiene: No service: No Current occupational status: retired 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 Meds Allergies Allergy/AdvReac Type Severity Reaction Status Date / Time diazepam [DIAZEPAM] Allergy Severe RASH Verified 07/04/21 15:41 Nnmvizu-ZRU-[id number] Reductase Allergy Severe Muscle Pain Verified 07/04/21 15:41 Inhibitor [SRZMOEL-QBS-JOP REDUCTASE INHIBITOR] Active Medications: Current Medications Acetaminophen (Acetaminophen 325 Mg Tablet) 650 mg PO Q6H PRN PRN Reason: Pain, Mild (Pain Scale 1-3) Last Admin: 07/23/21 19:50 Dose: 650 mg Documented by: Amlodipine Besylate (Amlodipine Besylate 10 Mg Tablet) 10 mg PO BEDTIME [facility]; Protocol Last Admin: 07/23/21 19:50 Dose: 10 mg Documented by: Ascorbic Acid (Ascorbic Acid 500 Mg Tablet) 1,000 mg PO DAILY [facility] Last Admin: 07/24/21 09:57 Dose: 1,000 mg Documented by: Aspirin (Aspirin Enteric Coated 81 Mg Tablet.Dr) 81 mg PO DAILY [facility] Last Admin: 07/24/21 09:57 Dose: 81 mg Documented by: Calcitonin [place] (Calcitonin,[place],Synth Nasal 3.7 Ml Bottle) 1 spray NOSTRIL-B DAILY [facility] Last Admin: 07/24/21 10:04 Dose: Not Given Documented by: Carvedilol (Carvedilol 6.25 Mg Tablet) 6.25 mg PO BID [facility]; Protocol Last Admin: 07/24/21 09:57 Dose: 6.25 mg Documented by: Clonazepam (Clonazepam 1 Mg Tablet) 1 mg PO BEDTIME [facility] Last Admin: 07/23/21 19:49 Dose: 1 mg Documented by: Donepezil HCl (Donepezil Hcl 10 Mg Tablet) 10 mg PO DAILY [facility] Last Admin: 07/24/21 09:57 Dose: 10 mg Documented by: Ferrous Sulfate (Ferrous Sulfate 324 Mg Tablet.) 324 mg PO DAILY [facility] Last Admin: 07/24/21 09:57 Dose: 324 mg Documented by: Linezolid (Zyvox/D5w) 600 mg in 300 mls @ 300 mls/hr IV Q12H [facility] Last Infusion: 07/24/21 06:17 Dose: Infused Documented by: Cefepime HCl 1 gm/ Sodium (Chloride) 50 mls @ 100 mls/hr IV Q12H [facility] Last Infusion: 07/24/21 04:59 Dose: Infused Documented by: Melatonin (Melatonin 3 Mg Tablet) 3 mg PO BEDTIME PRN PRN Reason: Insomnia Morphine Sulfate (Morphine Sulfate 4 Mg/Ml Cartridge) 2 mg IVPUSH Q4H PRN; Protocol PRN Reason: Pain, Severe (Pain Scale 7-10) Multivitamins/Vitamin C (Multivitamin Tablet) 1 tab PO DAILY [facility] Last Admin: 07/24/21 09:56 Dose: 1 tab Documented by: Omeprazole (Omeprazole 20 Mg Capsule.) 20 mg PO DAILY@0630 [facility] Last Admin: 07/24/21 05:02 Dose: 20 mg Documented by: Pharmacy Consult (Consult Rx Perform Med Rec) 1 each MISCELLANE ONCE PRN PRN Reason: Consult order Sodium Chloride (0.9 % Sodium Chloride Flush 3 Ml Syringe) 3 ml IVFLUSH QSHIFT [facility] Last Admin: 07/24/21 09:57 Dose: 3 ml Documented by: Tamsulosin HCl (Tamsulosin Hcl 0.4 Mg Capsule) 0.4 mg PO BEDTIME [facility] Last Admin: 07/23/21 19:50 Dose: 0.4 mg Documented by: Vitamin D (Cholecalciferol (Vitamin D3) 25 Mcg Tablet) 25 mcg PO DAILY [facility] Last Admin: 07/24/21 09:57 Dose: 25 mcg Documented by: Home Medications Medication Instructions Recorded Confirmed Last Taken Type ascorbic acid (vitamin C) 1,000 mg 1,000 mg PO DAILY tab 03/09/20 07/23/21 04/29/21 History tablet aspirin 81 mg tablet,delayed 81 mg PO DAILY 03/09/20 07/23/2104/28/22 History release cholecalciferol (vitamin D3) 250 25 mcg PO DAILY 03/09/20 07/23/21 04/29/21 History mcg (10,000 unit) capsule klhofdju-wik-onjqc acid 0.4 1 tab PO DAILY 03/09/20 07/23/21 04/29/21 History mg-lycopene 300 mcg-lutein 250 mcg tablet (Centrum Silver) Lactobacillus acidophilus 10 10,000 mmu cells PO DAILY 05/07/21 07/23/21 Unknown History billion cell capsule (Probiotic) amlodipine 10 mg tablet 10 mg PO BEDTIME 05/07/21 07/23/21 Unknown History calcitonin ([place]) 200 1 spray INTRANASAL DAILY 05/07/21 07/23/21 Unknown History unit/actuation nasal spray evolocumab 140 mg/mL subcutaneous 140 mg SUBCUT Q2W 05/07/21 07/23/21 05/17/21 History pen injector (Repatha SureClick) ferrous sulfate 325 mg (65 mg 325 mg PO DAILY 05/07/21 07/23/21 Unknown History iron) tablet tamsulosin 0.4 mg capsule 0.4 mg PO BEDTIME 05/24/21 07/23/21 Unknown History carvedilol 6.25 mg tablet 6.25 mg PO BID 06/20/21 07/23/21 Unknown History donepezil 10 mg tablet 10 mg PO DAILY 06/26/21 07/23/21 Unknown History lisinopril 5 mg tablet 5 mg PO DAILY 07/04/21 07/23/21 Unknown History Physical Exam Vital Signs and Narrative: Vital Signs: Last Vital Signs Temp 97.6 F 07/24/21 11:35 Pulse 64 07/24/21 11:35 Resp 17 07/24/21 11:35 BP 124/49 L 07/24/21 11:35 Pulse Ox 96 07/24/21 11:35 BMI result Body Mass Index 20.9 Rolls onto her left hip with assistance. Large greater than 5 x 5 cm opening with exposed bone. Significant undermining for which black foam had to be removed from which was cut to fit the undermining. Generally there is pink tissue of the periwound however the exposed area of bone is about 3.0 x 3.5 cm. There is foul wound odor coming from the VAC different than standard dressing odor. Results Labs CBC and Chem 7: 07/24/21 05:22 07/24/21 05:22 Labs: Laboratory Results - last 24 hr 07/23/21 07/23/21 07/23/21 12:52 12:53 12:53 MCV 92.9 MCH 30.2 MCHC 32.5 RDW 14.7 Plt Count 363 MPV 8.9 L Immature Gran % (Auto) 1.7 H Neut % (Auto) 96.1 H Lymph % (Auto) 0.9 L [place] % (Auto) 1.1 L Eos % (Auto) 0.0 Baso % (Auto) 0.2 Lymph # (Auto) 0.4 L [place] # (Auto) 0.4 Eos # (Auto) 0.0 Baso # (Auto) 0.1 Abs Immat Gran (auto) 0.70 H Absolute Neuts (auto) 39.2 H Absolute Nucleated RBC 0.000 Nucleated RBC % (auto) 0.0 PT 14.8 H INR 1.3 H Anion Gap Estim Creat Clear Calc Estimated GFR Random Glucose Lactic Acid 3.0 H* Lactic Acid F/U @ 2Hr Calcium Magnesium Total Bilirubin Direct Bilirubin AST ALT Alkaline Phosphatase Total Protein Albumin Lipase Urine Color Urine Appearance Urine pH Ur Specific [place] Urine Protein Urine Glucose (UA) Urine Ketones Urine Blood Urine Nitrite Ur Leukocyte Esterase Urine RBC Urine WBC Ur Squamous Epith Cells Urine Bacteria COVID-19 (GENIE) COVID-19 Clin Com 07/23/21 07/23/21 07/23/21 12:53 12:54 14:51 MCV MCH MCHC RDW Plt Count MPV Immature Gran % (Auto) Neut % (Auto) Lymph % (Auto) [place] % (Auto) Eos % (Auto) Baso % (Auto) Lymph # (Auto) [place] # (Auto) Eos # (Auto) Baso # (Auto) Abs Immat Gran (auto) Absolute Neuts (auto) Absolute Nucleated RBC Nucleated RBC % (auto) PT INR Anion Gap 17 Estim Creat Clear Calc 28.3 Estimated GFR 32 Random Glucose 137 H Lactic Acid Lactic Acid F/U @ 2Hr Calcium 8.6 Magnesium 2.2 Total Bilirubin 0.5 Direct Bilirubin 0.3 AST 32 H D ALT 22 Alkaline Phosphatase 171 H D Total Protein 5.8 L Albumin 2.6 L Lipase 8 Urine Color YELLOW Urine Appearance HAZY Urine pH 6.5 Ur Specific [place] 1.015 Urine Protein 2+ H Urine Glucose (UA) NEG Urine Ketones NEG Urine Blood TRACE Urine Nitrite NEG Ur Leukocyte Esterase 2+ H Urine RBC 0-2 Urine WBC 5-9 H Ur Squamous Epith Cells TRACE Urine Bacteria 4+ COVID-19 (GENIE) Negative COVID-19 Clin Com See Note 07/23/21 07/24/21 07/24/21 16:52 05:22 05:22 MCV 93.4 MCH 30.5 MCHC 32.6 RDW 14.7 Plt Count 337 MPV 9.5 Immature Gran % (Auto) Neut % (Auto) Lymph % (Auto) [place] % (Auto) Eos % (Auto) Baso % (Auto) Lymph # (Auto) [place] # (Auto) Eos # (Auto) Baso # (Auto) Abs Immat Gran (auto) Absolute Neuts (auto) Absolute Nucleated RBC 0.000 Nucleated RBC % (auto) 0.0 PT INR Anion Gap 13 Estim Creat Clear Calc 30.8 Estimated GFR 36 Random Glucose 101 Lactic Acid Lactic Acid F/U @ 2Hr 1.9 Calcium 7.9 L D Magnesium Total Bilirubin Direct Bilirubin AST ALT Alkaline Phosphatase Total Protein Albumin Lipase Urine Color Urine Appearance Urine pH Ur Specific [place] Urine Protein Urine Glucose (UA) Urine Ketones Urine Blood Urine Nitrite Ur Leukocyte Esterase Urine RBC Urine WBC Ur Squamous Epith Cells Urine Bacteria COVID-19 (GENIE) COVID-19 Clin Com Imaging Radiologist's Impressions: Impressions Abdomen/Pelvis CT 07/23/21 13:26 IMPRESSION: 1. Increased prominence of the sacral decubitus ulcer with redemonstration of an underlying fracture. No definite erosion, however, osteomyelitis could be considered given the proximity to the soft tissue ulceration. 2. Additional chronic findings are unchanged. Fleischner guidelines were followed. Chest X-Ray 07/23/21 13:27 IMPRESSION: No acute cardiopulmonary findings. Assessment and Plan (1) Ulcer of sacral region, stage 4: Status: Acute Plan 81-year-old female with stage IV pressure ulcer, long-standing since, April now with clear signs of decline including larger bone exposure, failure of VAC and imaging supporting osteomyelitis. Possible that sacral insufficiency fracture versus pathologic fracture from infection could be involved. Patient has a lot of pain. Might consider injectable Miacalcin for pain management. Recommend Infectious Disease consultation for extended course of antibiotics for what appears to be osteomyelitis of the bone not yet showing periosteal erosion on imaging. Discontinue wound VAC in the setting infection. Switch to alginate Ag. Note that her pre-albumin and total protein are below the limits of normal and that she is protein calorie malnourished. Suggest protein calorie supplementation to promote healing.
--- NOTE | 2021-07-24 13:03 | W.PM.IDCN ---
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 She has area osteomyelitis and had wound vac placed on 07/08. She has now gram positive cocci blood x2 and E coli urine and difficult to get history of urine symptoms due to dementia. Review of Systems Review of Systems: Yes Unobtainable due to mental condition [facility] Past Medical History Medical History Afib Anemia Anemia CHF (congestive heart failure) Chronic kidney disease CLL (chronic lymphocytic leukemia) Coronary artery calcification seen on CAT scan COVID-19 vaccine series completed Decubitus ulcer Decubitus ulcer of back, stage 3 Dementia Essential hypertension Hx of reduction of closed dislocation Hyperlipidemia Hypotension NSTEMI (non-ST elevated myocardial infarction) Osteomyelitis Peripheral artery disease Peripheral vascular disease Pulmonary fibrosis Ulcerative colitis Vertigo VRE bacteremia Family History Family History Father No problems noted. Mother No problems noted. Family history: reviewed and not pertinent Surgical History Surgical History H/O carotid endarterectomy H/O colonoscopy History of hip replacement History of liver biopsy History of revision of total hip arthroplasty Hx of lumbar discectomy S/P popliteal-distal bypass Social History Social History Household Members: Spouse and Family Household Members Other:: Housing: House Are you a primary md do resident urgent care to a significant other at home: No Do you presently have visiting nurse or other home services: Yes Unable to assess alcohol history related to: Unknown Alcohol intake: never Patient Tobacco Use Status: Never used Tobacco Tobacco use type: Cigarette Years Smoked: 62 e-Cigarette/Vaping Use: Currently Using Second Hand Smoke Exposure: No Use of substances other than those prescribed or required for medical reasons: No Currently Displaying Signs/Symptoms of Drug Intoxication Withdrawal: No Have you been hit, kicked, punched, or otherwise hurt by someone within the past year? If so, by whom?: No Do you feel safe in your current relationship?: No Current Relationship Is there a partner from a previous relationship who is making you feel unsafe now?: No Are you made to feel afraid or neglected: No Advance Directives: Yes Advance Directives on File: Yes Advance Directives Date on File: 01/03/21 Do you have thoughts of harming others: None Do you have a plan to hurt others: No Plan Recently lost weight without trying: Yes How much weight loss: 2-13 pounds Eating poorly because of decreased appetite: Yes Nutrition screen score: 4 Nutrition Risks: No Nutritional Risk Patient : No : No Poor oral hygiene: No service: No Current occupational status: retired 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 Meds Allergies Allergy/AdvReac Type Severity Reaction Status Date / Time diazepam [DIAZEPAM] Allergy Severe RASH Verified 07/04/21 15:41 Qbtymmh-PTB-JlD Reductase Allergy Severe Muscle Pain Verified 07/04/21 15:41 Inhibitor [RZEENVX-JPW-RBI REDUCTASE INHIBITOR] Active Medications: Current Medications Acetaminophen (Acetaminophen 325 Mg Tablet) 650 mg PO Q6H PRN PRN Reason: Pain, Mild (Pain Scale 1-3) Last Admin: 07/23/21 19:50 Dose: 650 mg Documented by: Amlodipine Besylate (Amlodipine Besylate 10 Mg Tablet) 10 mg PO BEDTIME [facility]; Protocol Last Admin: 07/23/21 19:50 Dose: 10 mg Documented by: Ascorbic Acid (Ascorbic Acid 500 Mg Tablet) 1,000 mg PO DAILY [facility] Last Admin: 07/24/21 09:57 Dose: 1,000 mg Documented by: Aspirin (Aspirin Enteric Coated 81 Mg Tablet.) 81 mg PO DAILY [facility] Last Admin: 07/24/21 09:57 Dose: 81 mg Documented by: Calcitonin [place] (Calcitonin,[place],Synth Nasal 3.7 Ml Bottle) 1 spray NOSTRIL-B DAILY [facility] Last Admin: 07/24/21 10:04 Dose: Not Given Documented by: Carvedilol (Carvedilol 6.25 Mg Tablet) 6.25 mg PO BID [facility]; Protocol Last Admin: 07/24/21 09:57 Dose: 6.25 mg Documented by: Clonazepam (Clonazepam 1 Mg Tablet) 1 mg PO BEDTIME [facility] Last Admin: 07/23/21 19:49 Dose: 1 mg Documented by: Donepezil HCl (Donepezil Hcl 10 Mg Tablet) 10 mg PO DAILY [facility] Last Admin: 07/24/21 09:57 Dose: 10 mg Documented by: Ferrous Sulfate (Ferrous Sulfate 324 Mg Tablet.) 324 mg PO DAILY [facility] Last Admin: 07/24/21 09:57 Dose: 324 mg Documented by: Linezolid (Zyvox/D5w) 600 mg in 300 mls @ 300 mls/hr IV Q12H [facility] Last Infusion: 07/24/21 06:17 Dose: Infused Documented by: Cefepime HCl 1 gm/ Sodium (Chloride) 50 mls @ 100 mls/hr IV Q12H [facility] Last Infusion: 07/24/21 04:59 Dose: Infused Documented by: Melatonin (Melatonin 3 Mg Tablet) 3 mg PO BEDTIME PRN PRN Reason: Insomnia Morphine Sulfate (Morphine Sulfate 4 Mg/Ml Cartridge) 2 mg IVPUSH Q4H PRN; Protocol PRN Reason: Pain, Severe (Pain Scale 7-10) Multivitamins/Vitamin C (Multivitamin Tablet) 1 tab PO DAILY [facility] Last Admin: 07/24/21 09:56 Dose: 1 tab Documented by: Omeprazole (Omeprazole 20 Mg Capsule.) 20 mg PO DAILY@0630 [facility] Last Admin: 07/24/21 05:02 Dose: 20 mg Documented by: Pharmacy Consult (Consult Rx Perform Med Rec) 1 each MISCELLANE ONCE PRN PRN Reason: Consult order Sodium Chloride (0.9 % Sodium Chloride Flush 3 Ml Syringe) 3 ml IVFLUSH QSHIFT [facility] Last Admin: 07/24/21 09:57 Dose: 3 ml Documented by: Tamsulosin HCl (Tamsulosin Hcl 0.4 Mg Capsule) 0.4 mg PO BEDTIME [facility] Last Admin: 07/23/21 19:50 Dose: 0.4 mg Documented by: Vitamin D (Cholecalciferol (Vitamin D3) 25 Mcg Tablet) 25 mcg PO DAILY [facility] Last Admin: 07/24/21 09:57 Dose: 25 mcg Documented by: Home Medications Medication Instructions Recorded Confirmed Last Taken Type ascorbic acid (vitamin C) 1,000 mg 1,000 mg PO DAILY tab 03/09/20 07/23/21 04/29/21 History tablet aspirin 81 mg tablet,delayed 81 mg PO DAILY 03/09/20 07/23/21 04/28/21 History release cholecalciferol (vitamin D3) 250 25 mcg PO DAILY 03/09/20 07/23/21 04/29/21 History mcg (10,000 unit) capsule bcravbkj-hqg-rchpo acid 0.4 1 tab PO DAILY 03/09/20 07/23/21 04/29/21 History mg-lycopene 300 mcg-lutein 250 mcg tablet (Centrum Silver) Lactobacillus acidophilus 10 10,000 mmu cells PO DAILY 05/07/21 07/23/21 Unknown History billion cell capsule (Probiotic) amlodipine 10 mg tablet 10 mg PO BEDTIME 05/07/21 07/23/21 Unknown History calcitonin ([place]) 200 1 spray INTRANASAL DAILY 05/07/21 07/23/21 Unknown History unit/actuation nasal spray evolocumab 140 mg/mL subcutaneous 140 mg SUBCUT Q2W 05/07/21 07/23/21 05/17/21 History pen injector (Repatha SureClick) ferrous sulfate 325 mg (65 mg 325 mg PO DAILY 05/07/21 07/23/21 Unknown History iron) tablet tamsulosin 0.4 mg capsule 0.4 mg PO BEDTIME 05/24/21 07/23/21 Unknown History carvedilol 6.25 mg tablet 6.25 mg PO BID 06/20/21 07/23/21 Unknown History donepezil 10 mg tablet 10 mg PO DAILY 06/26/21 07/23/21 Unknown History lisinopril 5 mg tablet 5 mg PO DAILY 07/04/21 07/23/21 Unknown History Physical Exam Vital Signs: Vital Signs: Last Vital Signs Temp 97.6 F 07/24/21 11:35 Pulse 64 07/24/21 11:35 Resp 17 07/24/21 11:35 BP 124/49 L 07/24/21 11:35 Pulse Ox 96 07/24/21 11:35 BMI result Body Mass Index 20.9 Const: General: cooperative HEENT: Head: Yes normal to inspection Mouth: Normal oral and palatal mucosa present Resp: Effort & Inspection: normal respiratory effort Cardio: Rate: regular rate Rhythm: regular rhythm GI: Palpation (GI): Soft to palpation and nontender Extrem: General: Yes normal to inspection Results Labs CBC & Chem 7: 07/24/21 05:22 07/24/21 05:22 Labs: Short CBC 07/23/21 07/24/21 Range/Units 12:53 05:22 WBC 40.9 H* 33.6 H* (4.8-10.8) X10*3/uL Hgb 8.9 L 7.9 L (12.0-16.0) g/dl Hct 27.4 L 24.2 L (37.0-47.0) % Plt Count 363 337 (160-400) X10*3/uL BMP 07/23/21 07/24/21 12:53 05:22 Sodium 136 135 Potassium 4.3 4.3 Chloride 103 106 Carbon Dioxide 20 L 20 L BUN 50 H 46 H Creatinine 1.57 H 1.41 H Calcium 8.6 7.9 L D Liver Function 07/23/21 Range/Units 12:53 Total Bilirubin 0.5 (0.0-1.0) mg/dL Direct Bilirubin 0.3 (0.0-0.5) mg/dL AST 32 H D (5-31) U/L ALT 22 (0-31) U/L Alkaline Phosphatase 171 H D (39-117) U/L Albumin 2.6 L (3.5-5.0) g/dL Urine 07/23/21 Range/Units 14:51 Urine Color YELLOW Urine Appearance HAZY Urine pH 6.5 (5.0-8.0) Ur Specific [place] 1.015 (1.005-1.025) Urine Protein 2+ H (NEG-TRACE) MG/DL Urine Glucose (UA) NEG (NEG) MG/DL Microbiology Microbiology Results: Microbiology 07/23/21 13:35 Blood - Venous Blood Culture - Preliminary Prelim: GPC Gram Stain only 07/23/21 12:53 Blood - Venous Blood Culture - Preliminary Prelim: GPC Gram Stain only 07/23/21 15:00 Urine clean catch - Urine pagan top Urine Culture - Preliminary Gram negative maude Assessment and Plan (1) Sepsis: Status: Acute There is possible source sacrum,possible left hip She has had VRE which Zosyn may cover. She has possible staph aureus including possible MRSA (2) Ulcer of sacral region, stage 4: Status: Acute (3) UTI (urinary tract infection): Status: Acute Plan Would continue Wound Care input. Would continue Zosyn and Vancomycin cover above. Check echo evaluate endocarditis.
--- NOTE | 2021-07-24 14:41 | PM.CNGS ---
History of Present Illness Consult details Consult date: 07/24/21 Narrative: 81-year-old female with multiple medical problems including dementia, coronary artery disease, hypertension, with unknown chronic sacral decubitus ulcer, admitted because of weakness. She is generally bed-bound. She has been seen here by the surgical service for chronic sacral decubitus ulcer last April and May 2021. She apparently had been seen by the [facility] as well and had been started on a wound VAC for the ulcer weeks ago. She also has a history of VRE bacteremia. She was admitted because of weakness. She had a CAT scan showing S4-S5 fracture adjacent to the ulcer. Osteomyelitis could not be ruled out. I was consulted for possible debridement. She currently the appears very fair although does answer some questions. She however does not offer much with regards to additional history. She had been staying at home in the care of her but this had been increasingly difficult per history. Review of Systems Constitutional: Constitutional: Reports lethargy, Reports malaise and Reports poor appetite Cardiovascular: Cardiovascular: Denies chest pain Respiratory: Respiratory: Denies cough Gastrointestinal: Gastrointestinal: Denies abdominal pain Genitourinary: Genitourinary: Denies difficulty voiding Neurologic: Comments: Bed-bound due to frailty PMFSH Past Medical History Medical History Afib Anemia Anemia CHF (congestive heart failure) Chronic kidney disease CLL (chronic lymphocytic leukemia) Coronary artery calcification seen on CAT scan COVID-19 vaccine series completed Decubitus ulcer Decubitus ulcer of back, stage 3 Dementia Essential hypertension Hx of reduction of closed dislocation Hyperlipidemia Hypotension NSTEMI (non-ST elevated myocardial infarction) Osteomyelitis Peripheral artery disease Peripheral vascular disease Pulmonary fibrosis Ulcerative colitis Vertigo VRE bacteremia Family History Family History Father No problems noted. Mother No problems noted. Family history: reviewed and not pertinent Surgical History Surgical History H/O carotid endarterectomy H/O colonoscopy History of hip replacement History of liver biopsy History of revision of total hip arthroplasty Hx of lumbar discectomy S/P popliteal-distal bypass Social History Social History Household Members: Spouse and Family Household Members Other:: Housing: House Are you a primary healthcare administration intern to a significant other at home: No Do you presently have visiting nurse or other home services: Yes Unable to assess alcohol history related to: Unknown Alcohol intake: never Patient Tobacco Use Status: Never used Tobacco Tobacco use type: Cigarette Years Smoked: 62 e-Cigarette/Vaping Use: Currently Using Second Hand Smoke Exposure: No Use of substances other than those prescribed or required for medical reasons: No Currently Displaying Signs/Symptoms of Drug Intoxication Withdrawal: No Have you been hit, kicked, punched, or otherwise hurt by someone within the past year? If so, by whom?: No Do you feel safe in your current relationship?: No Current Relationship Is there a partner from a previous relationship who is making you feel unsafe now?: No Are you made to feel afraid or neglected: No Advance Directives: Yes Advance Directives on File: Yes Advance Directives Date on File: 01/03/21 Do you have thoughts of harming others: None Do you have a plan to hurt others: No Plan Recently lost weight without trying: Yes How much weight loss: 2-13 pounds Eating poorly because of decreased appetite: Yes Nutrition screen score: 4 Nutrition Risks: No Nutritional Risk Patient : No : No Poor oral hygiene: No service: No Current occupational status: retired 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 Meds Allergies Allergy/AdvReac Type Severity Reaction Status Date / Time diazepam [DIAZEPAM] Allergy Severe RASH Verified 07/04/21 15:41 Yeikiad-DVL-JjJ Reductase Allergy Severe Muscle Pain Verified 07/04/21 15:41 Inhibitor [[id number] REDUCTASE INHIBITOR] Active Medications: Current Medications Acetaminophen (Acetaminophen 325 Mg Tablet) 650 mg PO Q6H PRN PRN Reason: Pain, Mild (Pain Scale 1-3) Last Admin: 07/23/21 19:50 Dose: 650 mg Documented by: Amlodipine Besylate (Amlodipine Besylate 10 Mg Tablet) 10 mg PO BEDTIME [facility]; Protocol Last Admin: 07/23/21 19:50 Dose: 10 mg Documented by: Ascorbic Acid (Ascorbic Acid 500 Mg Tablet) 1,000 mg PO DAILY [facility] Last Admin: 07/24/21 09:57 Dose: 1,000 mg Documented by: Aspirin (Aspirin Enteric Coated 81 Mg Tablet.) 81 mg PO DAILY [facility] Last Admin: 07/24/21 09:57 Dose: 81 mg Documented by: Calcitonin [place] (Calcitonin,[place],Synth Nasal 3.7 Ml Bottle) 1 spray NOSTRIL-B DAILY [facility] Last Admin: 07/24/21 10:04 Dose: Not Given Documented by: Carvedilol (Carvedilol 6.25 Mg Tablet) 6.25 mg PO BID [facility]; Protocol Last Admin: 07/24/21 09:57 Dose: 6.25 mg Documented by: Clonazepam (Clonazepam 1 Mg Tablet) 1 mg PO BEDTIME [facility] Last Admin: 07/23/21 19:49 Dose: 1 mg Documented by: Donepezil HCl (Donepezil Hcl 10 Mg Tablet) 10 mg PO DAILY [facility] Last Admin: 07/24/21 09:57 Dose: 10 mg Documented by: Ferrous Sulfate (Ferrous Sulfate 324 Mg Tablet.) 324 mg PO DAILY [facility] Last Admin: 07/24/21 09:57 Dose: 324 mg Documented by: Linezolid (Zyvox/D5w) 600 mg in 300 mls @ 300 mls/hr IV Q12H [facility] Last Infusion: 07/24/21 06:17 Dose: Infused Documented by: Cefepime HCl 1 gm/ Sodium (Chloride) 50 mls @ 100 mls/hr IV Q12H [facility] Last Infusion: 07/24/21 14:39 Dose: Infused Documented by: Melatonin (Melatonin 3 Mg Tablet) 3 mg PO BEDTIME PRN PRN Reason: Insomnia Morphine Sulfate (Morphine Sulfate 4 Mg/Ml Cartridge) 2 mg IVPUSH Q4H PRN; Protocol PRN Reason: Pain, Severe (Pain Scale 7-10) Multivitamins/Vitamin C (Multivitamin Tablet) 1 tab PO DAILY [facility] Last Admin: 07/24/21 09:56 Dose: 1 tab Documented by: Omeprazole (Omeprazole 20 Mg Capsule.) 20 mg PO DAILY@0630 [facility] Last Admin: 07/24/21 05:02 Dose: 20 mg Documented by: Pharmacy Consult (Consult Rx Perform Med Rec) 1 each MISCELLANE ONCE PRN PRN Reason: Consult order Sodium Chloride (0.9 % Sodium Chloride Flush 3 Ml Syringe) 3 ml IVFLUSH QSHIFT [facility] Last Admin: 07/24/21 09:57 Dose: 3 ml Documented by: Tamsulosin HCl (Tamsulosin Hcl 0.4 Mg Capsule) 0.4 mg PO BEDTIME [facility] Last Admin: 07/23/21 19:50 Dose: 0.4 mg Documented by: Vitamin D (Cholecalciferol (Vitamin D3) 25 Mcg Tablet) 25 mcg PO DAILY [facility] Last Admin: 07/24/21 09:57 Dose: 25 mcg Documented by: Home Medications Medication Instructions Recorded Confirmed Last Taken Type ascorbic acid (vitamin C) 1,000 mg 1,000 mg PO DAILY tab 03/09/20 07/23/21 04/29/21 History tablet aspirin 81 mg tablet,delayed 81 mg PO DAILY 03/09/20 07/23/21 04/28/21 History release cholecalciferol (vitamin D3) 250 25 mcg PO DAILY 03/09/20 07/23/21 04/29/21 History mcg (10,000 unit) capsule dachlopc-mca-tpqqh acid 0.4 1 tab PO DAILY 03/09/20 07/23/21 04/29/21 History mg-lycopene 300 mcg-lutein 250 mcg tablet (Centrum Silver) Lactobacillus acidophilus 10 10,000 mmu cells PO DAILY 05/07/21 07/23/21 Unknown History billion cell capsule (Probiotic) amlodipine 10 mg tablet 10 mg PO BEDTIME 05/07/21 07/23/21 Unknown History calcitonin (salmon) 200 1 spray INTRANASAL DAILY 05/07/21 07/23/21 Unknown History unit/actuation nasal spray evolocumab 140 mg/mL subcutaneous 140 mg SUBCUT Q2W 05/07/21 07/23/21 05/17/21 History pen injector (Sheree Madrigal) ferrous sulfate 325 mg (65 mg 325 mg PO DAILY 05/07/21 07/23/21 Unknown History iron) tablet tamsulosin 0.4 mg capsule 0.4 mg PO BEDTIME 05/24/21 07/23/21 Unknown History carvedilol 6.25 mg tablet 6.25 mg PO BID 06/20/21 07/23/21 Unknown History donepezil 10 mg tablet 10 mg PO DAILY 06/26/21 07/23/21 Unknown History lisinopril 5 mg tablet 5 mg PO DAILY 07/04/21 07/23/21 Unknown History Physical Exam Vital Signs: Vital Signs: Last Vital Signs Temp 97.6 F 07/24/21 11:35 Pulse 64 07/24/21 11:35 Resp 17 07/24/21 11:35 BP 124/49 L 07/24/21 11:35 Pulse Ox 96 07/24/21 11:35 BMI result Body Mass Index 20.9 Const: Other: frail looking, awake, answers simple questions, Resp: Effort & Inspection: normal respiratory effort Cardio: Rhythm: regular rhythm GI: Palpation (GI): Soft to palpation, not firm and nontender Back/Spine/Pelvis: Other: large decubitus ulcer, 5 cm in diameter, with undermining circumferentially, bone appears exposed at the base, no pus currently ulcer appears clean now, no necrotic debris or tissue Results Labs Result diagrams: 07/24/21 05:22 07/24/21 05:22 Labs: Abnormal lab results 07/23/21 07/24/21 07/24/21 Range/Units 14:51 05:22 05:22 WBC 33.6 H* (4.8-10.8) X10*3/uL RBC 2.59 L (4.20-5.50) X10*6/uL Hgb 7.9 L (12.0-16.0) g/dl Hct 24.2 L (37.0-47.0) % Carbon Dioxide 20 L (22-29) mmol/L BUN 46 H (9-16) mg/dL Creatinine 1.41 H (0.5-1.4) mg/dL Calcium 7.9 L D (8.4-10.2) mg/dL Urine Protein 2+ H (NEG-TRACE) MG/DL Ur Leukocyte Esterase 2+ H (NEG) Urine WBC 5-9 H (0-4) /HPF Short CBC 07/24/21 Range/Units 05:22 WBC 33.6 H* (4.8-10.8) X10*3/uL Hgb 7.9 L (12.0-16.0) g/dl Hct 24.2 L (37.0-47.0) % Plt Count 337 (160-400) X10*3/uL BMP 07/24/21 05:22 Sodium 135 Potassium 4.3 Chloride 106 Carbon Dioxide 20 L BUN 46 H Creatinine 1.41 H Calcium 7.9 L D Urine 07/23/21 Range/Units 14:51 Urine Color YELLOW Urine Appearance HAZY Urine pH 6.5 (5.0-8.0) Ur Specific [place] 1.015 (1.005-1.025) Urine Protein 2+ H (NEG-TRACE) MG/DL Urine Glucose (UA) NEG (NEG) MG/DL All other labs normal. Imaging Additional studies: Laboratory Results WBC 33.6 X10*3/uL (4.8-10.8) H* 07/24/21 05:22 RBC 2.59 X10*6/uL (4.20-5.50) L 07/24/21 05:22 Hgb 7.9 g/dl (12.0-16.0) L 07/24/21 05:22 Hct 24.2 % (37.0-47.0) L 07/24/21 05:22 MCV 93.4 fL (80.0-98.0) 07/24/21 05:22 MCH 30.5 pg (27.0-33.0) 07/24/21 05: MCHC 32.6 g/dl (31.0-35.0) 07/24/21 05: RDW 14.7 % (11.0-16.0) 07/24/21 05:22 Plt Count 337 X10*3/uL (160-400) 07/24/21 05:22 MPV 9.5 fL (9.4-12.3) 07/24/21 05:22 Immature Gran % (Auto) 1.7 % (0.0-0.4) H 07/23/21 12:53 Neut % (Auto) 96.1 % (45-73) H 07/23/21 12:53 Lymph % (Auto) 0.9 % (20-40) L 07/23/21 12:53 [place] % (Auto) 1.1 % (2-11) L 07/23/21 12:53 Eos % (Auto) 0.0 % (0-4) 07/23/21 12:53 Baso % (Auto) 0.2 % (0-2) 07/23/21 12:53 Lymph # (Auto) 0.4 X10*3/uL (1.2-4.9) L 07/23/21 12:53 [place] # (Auto) 0.4 X10*3/uL (0.1-1.2) 07/23/21 12:53 Eos # (Auto) 0.0 X10*3/uL (0.0-0.4) 07/23/21 12:53 Baso # (Auto) 0.1 X10*3/uL (0.0-0.2) 07/23/21 12:53 Abs Immat Gran (auto) 0.70 X10*3/uL (0.00-0.03) H 07/23/21 12:53 Absolute Neuts (auto) 39.2 x10*3/uL (2.0-8.3) H 07/23/21 12:53 Absolute Nucleated RBC 0.000 X10*3/uL (0.0-0.012) 07/24/21 05: Nucleated RBC % (auto) 0.0 /100WBC (0.0-0.2) 07/24/21 05: PT 14.8 SEC (9.9-13.0) H 07/23/21 12:53 INR 1.3 (0.9-1.1) H 07/23/21 12:53 Sodium 135 mmol/L (135-145) 07/24/21 05:22 Potassium 4.3 mmol/L (3.3-5.1) 07/24/21 05:22 Chloride 106 mmol/L (96-108) 07/24/21 05:22 Carbon Dioxide 20 mmol/L (22-29) L 07/24/21 05:22 Anion Gap 13 (12-20) 07/24/21 05:22 BUN 46 mg/dL (9-16) H 07/24/21 05:22 Creatinine 1.41 mg/dL (0.5-1.4) H 07/24/21 05:22 Estim Creat Clear Calc 30.8 07/24/21 05:22 Estimated GFR 36 07/24/21 05:22 Random Glucose 101 mg/dL (60-115) 07/24/21 05:22 Lactic Acid 3.0 mmol/L (0.5-2.0) H* 07/23/21 12:52 Lactic Acid F/U @ 2Hr 1.9 mmol/L (0.5-2.0) 07/23/21 16:52 Calcium 7.9 mg/dL (8.4-10.2) L D 07/24/21 05:22 Magnesium 2.2 mg/dL (1.6-2.6) 07/23/21 12:53 Total Bilirubin 0.5 mg/dL (0.0-1.0) 07/23/21 12:53 Direct Bilirubin 0.3 mg/dL (0.0-0.5) 07/23/21 12:53 AST 32 U/L (5-31) H D 07/23/21 12:53 ALT 22 U/L (0-31) 07/23/21 12:53 Alkaline Phosphatase 171 U/L (39-117) H D 07/23/21 12:53 Total Protein 5.8 g/dL (6.5-8.0) L 07/23/21 12:53 Albumin 2.6 g/dL (3.5-5.0) L 07/23/21 12:53 Lipase 8 U/L (8-78) 07/23/21 12:53 Urine Color YELLOW 07/23/21 14:51 Urine Appearance HAZY 07/23/21 14:51 Urine pH 6.5 (5.0-8.0) 07/23/21 14:51 Ur Specific [place] 1.015 (1.005-1.025) 07/23/21 14:51 Urine Protein 2+ MG/DL (NEG-TRACE) H 07/23/21 14:51 Urine Glucose (UA) NEG MG/DL (NEG) 07/23/21 14:51 Urine Ketones NEG MG/DL (NEG) 07/23/21 14:51 Urine Blood TRACE (NEG) 07/23/21 14:51 Urine Nitrite NEG (NEG) 07/23/21 14:51 Ur Leukocyte Esterase 2+ (NEG) H 07/23/21 14:51 Urine RBC 0-2 /HPF (0) 07/23/21 14:51 Urine WBC 5-9 /HPF (0-4) H 07/23/21 14:51 Ur Squamous Epith Cells TRACE /LPF 07/23/21 14:51 Urine Bacteria 4+ /LPF 07/23/21 14:51 COVID-19 (GENIE) Negative (Negative) 07/23/21 12:54 COVID-19 Clin Com See Note 07/23/21 12:54 Impressions Hip X-Ray 07/23/21 12:00 IMPRESSION: No hardware abnormality. No acute fracture. Abdomen/Pelvis CT 07/23/21 13:26 IMPRESSION: 1. Increased prominence of the sacral decubitus ulcer with redemonstration of an underlying fracture. No definite erosion, however, osteomyelitis could be considered given the proximity to the soft tissue ulceration. 2. Additional chronic findings are unchanged. Fleischner guidelines were followed. Chest X-Ray 07/23/21 13:27 IMPRESSION: No acute cardiopulmonary findings. Assessment and Plan (1) Ulcer of sacral region, stage 4: Status: Acute She has a sacral decubitus ulcer as described above. Bone appears to be exposed in a large area. I do not see any pus right now. I do not see any necrotic debris. There was note of a fracture on S4 S5 and osteomyelitis could not be ruled out. The wound otherwise appears clean at this time. I do not think that she will need any debridement. She silver alginate dressings in place at this time. The wound VAC has been temporarily discontinued because of the suspicion for osteomyelitis. I would continue the same wound care. She is already started on empiric antibiotics. Again, frequent turning has to be emphasized. I will follow along while she is in the hospital. Procedures Date of Service Date of Service: 07/24/21
--- NOTE | 2021-07-24 15:02 | MHC.CM.PN ---
nurse case managaee note electronic medical record reviewed LONG WITH CASE DISCUSSED WITH STAFF NURSE, AND HOSPITLAIST. MET WITH PATIENT AND HER HISBAND . PATIENT HAS BEEN HOSPITLSIED RECENLY AND HAS GONE TO STR , SHE HS NBEEN AT HOME WITH [facility] FOR NURSING nd home wound vac. discussed the possiblitily of may needing str pt/ want her to get pt here and be able to go home , hcp uploaded to [facility] , referral made to [facility] for resumption of services covid vacinated x2 with pfziers and one booster patient has walker at home but has been staying in bed lately very weak and poor appetitie she is on a-fib but not on anticoagulants has hx of dementia discharge plan home with with resumption of services with wound vac and [facility] for nrusing vs str medicar imm 07/24/21 hcp uploaded to [facility] covid vacianted x3
[2021-07-24 15:07] VITALS: BP 171/72; PULSE 74; RESP 18; TEMP 36.8; O2SAT 94
[2021-07-24 15:55] VITALS: BP 156/66; PULSE 77; RESP 16; TEMP 37.3; O2SAT 95
[2021-07-24 19:01] VITALS: BMI 20.9
--- NOTE | 2021-07-24 19:09 | MHC.CLN ---
NUTRITION CONSULT FOR SKIN INTEGRITY/NUTRITION. STAGE 4 SACRAL WOUND WITH WOUND VAC. RECENT INTAKE POOR PER FAMILY. REVIEW OF WEIGHT HISTORY SHOWS NO SIGNIFICANT WEIGHT LOSS. PATIENT LIKES ENSURE SUPPLEMENT. DIET=REGULAR. ENSURE TID PROVIDES ADDITIONAL 1050 KCALS, 60 GRAMS PROTEIN TO PROMOTE WOUND HEALING AND NUTRITIONAL STATUS.
[2021-07-24 19:40] VITALS: BP 121/58; PULSE 76; RESP 16; TEMP 37.4; O2SAT 95
[2021-07-24] MEDS: Tamsulosin HCL 0.4 MG CAPSULE PO (20:28)
[2021-07-24] MEDS: clonazePAM 1 MG TABLET PO (20:28)
[2021-07-24] MEDS: amLODIPine Besylate 10 MG TABLET PO (20:34)
[2021-07-24 23:16] VITALS: BP 128/43; PULSE 77; RESP 18; TEMP 37.4; O2SAT 93
[2021-07-25 03:28] VITALS: BP 154/64; PULSE 76; RESP 16; TEMP 36.8; O2SAT 98
[2021-07-25] MEDS: cefEPime HCl 1 GM in 0.9 % Sodium Chloride 50 ML IV (03:57)
[2021-07-25] MEDS: Linezolid/D5W 600 MG/300 ML PIGGYBACK 300 MG IV (03:57)
[2021-07-25] MEDS: Omeprazole 20 MG CAPSULE.DR PO (05:42)
[2021-07-25 06:43] LABS: Hematocrit 24.7 % (37.0-47.0); Hemoglobin 8.2 g/dl (12.0-16.0); Mean Corpuscular HGB Conc 33.2 g/dl (31.0-35.0); Mean Corpuscular Hemoglobin 30.6 pg (27.0-33.0); Mean Corpuscular Volume 92.2 fL (80.0-98.0); Mean Platelet Volume 9.6 fL (9.4-12.3); Platelet Count 331 X10*3/uL (160-400); Red Blood Count 2.68 X10*6/uL (4.20-5.50); Red Cell Distribution Width 14.8 % (11.0-16.0)
[2021-07-25 06:57] LABS: Anion Gap 13 (12-20); Blood Urea Nitrogen 50 mg/dL (9-16); Calcium 7.8 mg/dL (8.4-10.2); Carbon Dioxide 20 mmol/L (22-29); Chloride 101 mmol/L (96-108); Creatinine Clr Calc Pharmacy 30.5; Estimated Glomerular Filt Rate 36; Glucose Random 113 mg/dL (60-115); Potassium 4.2 mmol/L (3.3-5.1); Sodium 130 mmol/L (135-145)
[2021-07-25 07:40] VITALS: BP 154/59; PULSE 71; RESP 18; TEMP 37; O2SAT 95
--- NOTE | 2021-07-25 07:58 | P.PNIM_ITS ---
Subjective Subjective Date of Service: 07/25/21 Interval History: sacral wound inf,bactermia Review of Systems pain seems to be improving denies any chest pain or shortness of breath or abdominal pain or fever or chills Physical Exam Vital Signs: Vital Signs: Last Vital Signs Temp 98.6 F 07/25/21 07:40 Pulse 71 07/25/21 07:40 Resp 18 07/25/21 07:40 BP 154/59 H 07/25/21 07:40 Pulse Ox 95 07/25/21 07:40 BMI result Body Mass Index 20.9 Appearance: Alert.? Oriented X3.? not in distress.? cvs: rrr, [id number] , no murmur res: air entry fair. abd: no rebound or guarding ,nt, bs present. ext pulses present , no cyanosis,Large sacral decubitus ulcer, mostly clean with good granulation except for exposed bone on the left side. neuro: axo3 , nonfocal. Objective Data Active Medications Acetaminophen (Acetaminophen 325 Mg Tablet) 650 mg PO Q6H PRN PRN Reason: Pain, Mild (Pain Scale 1-3) Last Admin: 07/23/21 19:50 Dose: 650 mg Documented by: ANABEL Amlodipine Besylate (Amlodipine Besylate 10 Mg Tablet) 10 mg PO BEDTIME [facility]; Protocol Last Admin: 07/24/21 20:34 Dose: 10 mg Documented by: YADI Ascorbic Acid (Ascorbic Acid 500 Mg Tablet) 1,000 mg PO DAILY [facility] Last Admin: 07/24/21 09:57 Dose: 1,000 mg Documented by: PARAMJIT Aspirin (Aspirin Enteric Coated 81 Mg Tablet.) 81 mg PO DAILY [facility] Last Admin: 07/24/21 09:57 Dose: 81 mg Documented by: PARAMJIT Calcitonin [place] (Calcitonin,[place],Synth Nasal 3.7 Ml Bottle) 1 spray NOSTRIL-B DAILY [facility] Last Admin: 07/24/21 10:04 Dose: Not Given Documented by: PARAMJIT Non-Admin Reason: Med Not Available Carvedilol (Carvedilol 6.25 Mg Tablet) 6.25 mg PO BID [facility]; Protocol Last Admin: 07/24/21 20:28 Dose: 6.25 mg Documented by: YADI Clonazepam (Clonazepam 1 Mg Tablet) 1 mg PO BEDTIME [facility] Last Admin: 07/24/21 20:28 Dose: 1 mg Documented by: YADI Donepezil HCl (Donepezil Hcl 10 Mg Tablet) 10 mg PO DAILY [facility] Last Admin: 07/24/21 09:57 Dose: 10 mg Documented by: PARAMJIT Ferrous Sulfate (Ferrous Sulfate 324 Mg Tablet.) 324 mg PO DAILY [facility] Last Admin: 07/24/21 09:57 Dose: 324 mg Documented by: PARAMJIT Linezolid (Zyvox/D5w) 600 mg in 300 mls @ 300 mls/hr IV Q12H [facility] Last Infusion: 07/25/21 05:46 Dose: 0 mls/hr Documented by: YADI Cefepime HCl 1 gm/ Sodium (Chloride) 50 mls @ 100 mls/hr IV Q12H [facility] Last Infusion: 07/25/21 05:46 Dose: 0 mls/hr Documented by: YADI Melatonin (Melatonin 3 Mg Tablet) 3 mg PO BEDTIME PRN PRN Reason: Insomnia Morphine Sulfate (Morphine Sulfate 4 Mg/Ml Cartridge) 2 mg IVPUSH Q4H PRN; Protocol PRN Reason: Pain, Severe (Pain Scale 7-10) Multivitamins/Vitamin C (Multivitamin Tablet) 1 tab PO DAILY [facility] Last Admin: 07/24/21 09:56 Dose: 1 tab Documented by: PARAMJIT Omeprazole (Omeprazole 20 Mg Capsule.) 20 mg PO DAILY@0630 [facility] Last Admin: 07/25/21 05:42 Dose: 20 mg Documented by: YADI Pharmacy Consult (Consult Rx Perform Med Rec) 1 each MISCELLANE ONCE PRN PRN Reason: Consult order Sodium Chloride (0.9 % Sodium Chloride Flush 3 Ml Syringe) 3 ml IVFLUSH QSHIFT [facility] Last Admin: 07/24/21 20:28 Dose: 3 ml Documented by: YADI Tamsulosin HCl (Tamsulosin Hcl 0.4 Mg Capsule) 0.4 mg PO BEDTIME [facility] Last Admin: 07/24/21 20:28 Dose: 0.4 mg Documented by: YADI Vitamin D (Cholecalciferol (Vitamin D3) 25 Mcg Tablet) 25 mcg PO DAILY [facility] Last Admin: 07/24/21 09:57 Dose: 25 mcg Documented by: PARAMJIT Labs CBC & Chem 7: 07/25/21 05:21 07/25/21 05:21 Labs: Laboratory Results - last 24 hr 07/25/21 07/25/21 05:21 05:21 MCV 92.2 MCH 30.6 MCHC 33.2 RDW 14.8 Plt Count 331 MPV 9.6 Absolute Nucleated RBC 0.000 Nucleated RBC % (auto) 0.0 Anion Gap 13 Estim Creat Clear Calc 30.5 Estimated GFR 36 Random Glucose 113 Calcium 7.8 L Microbiology Microbiology Results: Microbiology 07/23/21 15:00 Urine Culture - Final Urine clean catch - Urine pagan top Klebsiella pneumoniae 07/23/21 13:35 Blood Culture - Preliminary Blood - Venous Prelim: GPC Gram Stain only 07/23/21 12:53 Blood Culture - Preliminary Blood - Venous Prelim: GPC Gram Stain only Assessment and Plan (1) Sepsis: Status: Acute (2) Ulcer of sacral region, stage 4: Status: Acute (3) Bacteremia: Status: Acute Plan 81-year-old female with a past medical history of hypertension, hyperlipidemia, CAD, peripheral vascular disease, paroxysmal AFib, CKD, anemia, dementia, recent history of UTI-finished course of antibiotics; 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 presenting with left hip and found to be septic likely of decub ulcer source, UTI? and she is failing at home. Sepsis d/t infected sacral ulcer-- give prior history of VRE and Pseudomonas will treat with IV Zyvox, Cefepime, ID and wound consult.? Follow cultures.? No severe sepsis, renal failure is chronic. leukocytosis trending down( last fever was07/23 101*f) gram-positive bacteremia, repeat blood cultures. urine culture growing Gram-negative maude Id and Wound Care evaluation noted- continue current antibiotics linezolid and cefepime day2 echo ordered surgery evaluation also added. UTI--Same Abx as above Anemia of chronic disease--no acute component, monitor if drops further consider transufison CKD3--Creatine is witin baseline History of hypertension: Continue Norvasc and Coreg History of peripheral vascular disease/CAD:? She does not tolerate statin, on Repatha SureClick (not on formulary), Aspirin and BB History of paroxysmal AFib: Rate controlled.? Not on anticoagulation secondary to anemia, high tendency to bleed.? Coreg for rate control Dementia--Aricept DVT prophylaxis:? SCD boots Code status:? DNI only. Not DNR!! Patient Need: Sepsis workup, bacteremia, decubitus ulcer. Patient currently on IV antibiotics. Quality Stroke Does the patient have a stroke diagnosis?: No VTE Prior VTE?: No VTE Risk Level:: Medical - moderate - high VTE Device Contraindication: N/A - Device Ordered VTE Drug Contraindication: Treatment Not Tolerated
--- NOTE | 2021-07-25 08:34 | P.CDIC_ITS ---
CDI Concurrent Query Documentation Clarification: PHYSICIAN'S DOCUMENTATION REQUEST Date of Query: 07/25/21 0835 Patient Name: Georgina Jamil Admit Date: 07/23/21 Dear Doctor, A review of the medical record indicates additional documentation may be needed. Please review below and update the documentation accordingly. Clinical Indicators: Risk Factors/Clinical Indicators/Treatments PMH: Dementia Asked a few questions does not answer in the setting of Dementia. Mild confusion, falling at home. If possible, please further clarify type of Dementia and any associated manifestations: SPECIFICS: Disease Type: * Dementia, Vascular, Senile, Alzheimer's etc. * Other * Unable to determine Associated Manifestations: * Dementia without behavioral disturbance * Dementia with delirium * Confusion * Sundowning * No associated manifestations * Other ? please specify * Unable to determine Use of terms such as suspected, likely, concern for, or probable (associated with a specific diagnosis that is being evaluated, monitored, or treated as if it exists) are acceptable and can be coded in the inpatient setting, when documented at the time of discharge. Thank you, Denisse Barbour [facility], CDIS Extension: [phone] Please use your independent medical judgment in providing your response. THIS QUERY IS PART OF THE PERMANENT MEDICAL RECORD Provider Response: Other Other Diagnosis: dementia -unclear etiology
[2021-07-25] MEDS: 0.9 % Sodium Chloride Flush 3 ML SYRINGE IVFLUSH ×3 (08:35→21:07)
[2021-07-25] MEDS: carvediloL 6.25 MG TABLET PO ×2 (08:36→21:06)
[2021-07-25] MEDS: Cholecalciferol (Vitamin D3) 25 MCG TABLET PO (08:36)
[2021-07-25] MEDS: Multivitamin TABLET 1 TAB PO (08:36)
[2021-07-25] MEDS: Ferrous Sulfate 324 MG TABLET.DR PO (08:36)
[2021-07-25] MEDS: Ascorbic Acid 500 MG TABLET 1000 MG PO (08:36)
[2021-07-25] MEDS: Donepezil HCl 10 MG TABLET PO (08:36)
[2021-07-25] MEDS: Aspirin Enteric Coated 81 MG TABLET.DR PO (08:37)
--- NOTE | 2021-07-25 10:01 | P.CDIC_ITS ---
CDI Concurrent Query Documentation Clarification: PHYSICIAN'S DOCUMENTATION REQUEST Date of Query: 07/25/21 1001 Patient Name: Georgina Jamil Admit Date: 07/23/21 Dear Doctor, A review of the medical record indicates additional documentation may be needed. Please review below and update the documentation accordingly. Clinical Indicators: Risk Factors/Clinical Indicators/Treatments Surgical note 07/24 - PMH - Congestive heart failure Wound care note 07/24 PMH - Congestive heart failure History of Echo performed. Please provide further specificity regarding the most likely type and acuity of CHF you are evaluating, treating, or monitoring. Examples include: Type: * Systolic * Diastolic * Combined Systolic/Diastolic * Other ? please specify * Unable to determine Acuity: * Acute * Chronic * Acute on chronic * Unable to determine Use of terms such as suspected, likely, concern for, or probable (associated with a specific diagnosis that is being evaluated, monitored, or treated as if it exists) are acceptable and can be coded in the inpatient setting, when documented at the time of discharge. Thank you, Denisse Barbour [facility], CDIS Extension: [phone] Please use your independent medical judgment in providing your response. THIS QUERY IS PART OF THE PERMANENT MEDICAL RECORD Provider Response: Other Other Diagnosis: history of heart failure- Etiology unclear.
[2021-07-25 11:46] VITALS: BP 146/56; PULSE 89; RESP 18; TEMP 37.3; O2SAT 96
--- NOTE | 2021-07-25 13:01 | PM.PNGS ---
Subjective Subjective Date of Service: 07/25/21 Interval history: Says she is ?okay? No events reported Physical Exam Vital Signs: Vital Signs: Last Vital Signs Temp 99.2 F 07/25/21 11:46 Pulse 89 07/25/21 11:46 Resp 18 07/25/21 11:46 BP 146/56 H 07/25/21 11:46 Pulse Ox 96 07/25/21 11:46 BMI result Body Mass Index 20.9 Const: Other: Very frail looking General: no acute distress Resp: Effort & Inspection: normal respiratory effort Cardio: Rate: regular rate GI: Palpation (GI): Soft to palpation and nontender Back/Spine/Pelvis: Other: Large sacral decubitus ulcer, mostly clean with good granulation except for exposed bone on the left side Objective Data Active Medications Acetaminophen (Acetaminophen 325 Mg Tablet) 650 mg PO Q6H PRN PRN Reason: Pain, Mild (Pain Scale 1-3) Last Admin: 07/23/21 19:50 Dose: 650 mg Documented by: ANABEL Amlodipine Besylate (Amlodipine Besylate 10 Mg Tablet) 10 mg PO BEDTIME [facility]; Protocol Last Admin: 07/24/21 20:34 Dose: 10 mg Documented by: YADI Ascorbic Acid (Ascorbic Acid 500 Mg Tablet) 1,000 mg PO DAILY [facility] Last Admin: 07/25/21 08:36 Dose: 1,000 mg Documented by: SALOMÓN Aspirin (Aspirin Enteric Coated 81 Mg Tablet.) 81 mg PO DAILY [facility] Last Admin: 07/25/21 08:37 Dose: 81 mg Documented by: SALOMÓN Calcitonin [place] (Calcitonin,[place],Synth Nasal 3.7 Ml Bottle) 1 spray NOSTRIL-B DAILY [facility] Last Admin: 07/25/21 08:49 Dose: Not Given Documented by: SALOMÓN Non-Admin Reason: Med Not Available Carvedilol (Carvedilol 6.25 Mg Tablet) 6.25 mg PO BID [facility]; Protocol Last Admin: 07/25/21 08:36 Dose: 6.25 mg Documented by: SALOMÓN Clonazepam (Clonazepam 1 Mg Tablet) 1 mg PO BEDTIME [facility] Last Admin: 07/24/21 20:28 Dose: 1 mg Documented by: YADI Donepezil HCl (Donepezil Hcl 10 Mg Tablet) 10 mg PO DAILY [facility] Last Admin: 07/25/21 08:36 Dose: 10 mg Documented by: SALOMÓN Ferrous Sulfate (Ferrous Sulfate 324 Mg Tablet.) 324 mg PO DAILY [facility] Last Admin: 07/25/21 08:36 Dose: 324 mg Documented by: SALOMÓN Guaifenesin (Guaifenesin 100 Mg/5 Ml Liquid) 5 ml PO Q4H PRN PRN Reason: Cough Linezolid (Zyvox/D5w) 600 mg in 300 mls @ 300 mls/hr IV Q12H [facility] Last Infusion: 07/25/21 05:46 Dose: 0 mls/hr Documented by: YADI Cefepime HCl 1 gm/ Sodium (Chloride) 50 mls @ 100 mls/hr IV Q12H [facility] Last Infusion: 07/25/21 05:46 Dose: 0 mls/hr Documented by: YADI Melatonin (Melatonin 3 Mg Tablet) 3 mg PO BEDTIME PRN PRN Reason: Insomnia Morphine Sulfate (Morphine Sulfate 4 Mg/Ml Cartridge) 2 mg IVPUSH Q4H PRN; Protocol PRN Reason: Pain, Severe (Pain Scale 7-10) Multivitamins/Vitamin C (Multivitamin Tablet) 1 tab PO DAILY [facility] Last Admin: 07/25/21 08:36 Dose: 1 tab Documented by: SALOMÓN Omeprazole (Omeprazole 20 Mg Capsule.) 20 mg PO DAILY@0630 [facility] Last Admin: 07/25/21 05:42 Dose: 20 mg Documented by: YADI Pharmacy Consult (Consult Rx Perform Med Rec) 1 each MISCELLANE ONCE PRN PRN Reason: Consult order Sodium Chloride (0.9 % Sodium Chloride Flush 3 Ml Syringe) 3 ml IVFLUSH QSHIFT [facility] Last Admin: 07/25/21 08:35 Dose: 3 ml Documented by: SALOMÓN Tamsulosin HCl (Tamsulosin Hcl 0.4 Mg Capsule) 0.4 mg PO BEDTIME [facility] Last Admin: 07/24/21 20:28 Dose: 0.4 mg Documented by: YADI Vitamin D (Cholecalciferol (Vitamin D3) 25 Mcg Tablet) 25 mcg PO DAILY [facility] Last Admin: 07/25/21 08:36 Dose: 25 mcg Documented by: SALOMÓN Labs CBC & Chem 7: 07/25/21 05:21 07/25/21 05:21 Labs: Laboratory Results - last 24 hr 07/23/21 07/25/21 07/25/21 12:53 05:21 05:21 MCV 92.2 MCH 30.6 MCHC 33.2 RDW 14.8 Plt Count 331 MPV 9.6 Absolute Nucleated RBC 0.000 Nucleated RBC % (auto) 0.0 Smear Path Review SEE NOTE Anion Gap 13 Estim Creat Clear Calc 30.5 Estimated GFR 36 Random Glucose 113 Calcium 7.8 L Microbiology Microbiology Results: Microbiology 07/23/21 13:35 Blood Culture - Preliminary Blood - Venous Streptococcus pyogenes (Grp A) 07/23/21 12:53 Blood Culture - Preliminary Blood - Venous Streptococcus pyogenes (Grp A) 07/23/21 15:00 Urine Culture - Final Urine clean catch - Urine pagan top Klebsiella pneumoniae Procedures Date of Service Date of Service: 07/25/21 Progress Note: A&P Assessment and plan (1) Ulcer of sacral region, stage 4: Status: Acute Assessment and Plan: I changed her dressings Fresh silver alginate applied, covered with dry gauze No edema indicated at this time Will need intensive good wound care Change position every 2 hours Time Spent With Patient Time: Total time spent is greater than 50% in coordination of care (as documented) at patient's floor/unit and/or counseling patient: Quality Stroke Does the patient have a stroke diagnosis?: No VTE Prior VTE?: No VTE Risk Level:: Medical - moderate - high VTE Device Contraindication: N/A - Device Ordered VTE Drug Contraindication: Treatment Not Tolerated
--- NOTE | 2021-07-25 13:23 | PM.IDPN ---
Subjective Subjective Date of Service: 07/25/21 Critical Care Time (minutes): 15 Comment: patient no complaints Objective Data Labs CBC & Chem 7: 07/26/21 06:07 07/26/21 06:07 Labs: Laboratory Results - last 24 hr 07/23/21 07/25/21 07/25/21 12:53 05:21 05:21 WBC 26.0 H RBC 2.68 L Hgb 8.2 L Hct 24.7 L MCV 92.2 MCH 30.6 MCHC 33.2 RDW 14.8 Plt Count 331 MPV 9.6 Absolute Nucleated RBC 0.000 Nucleated RBC % (auto) 0.0 Smear Path Review SEE NOTE Sodium 130 L Potassium 4.2 Chloride 101 Carbon Dioxide 20 L Anion Gap 13 BUN 50 H Creatinine 1.42 H Estim Creat Clear Calc 30.5 Estimated GFR 36 Random Glucose 113 Calcium 7.8 L Microbiology Microbiology Results: Microbiology 07/23/21 13:35 Blood - Venous Blood Culture - Preliminary Streptococcus pyogenes (Grp A) 07/23/21 12:53 Blood - Venous Blood Culture - Preliminary Streptococcus pyogenes (Grp A) 07/23/21 15:00 Urine clean catch - Urine pagan top Urine Culture - Final Klebsiella pneumoniae Physical Exam Vital Signs: Vital Signs: Last Vital Signs Temp 99.2 F 07/25/21 11:46 Pulse 89 07/25/21 11:46 Resp 18 07/25/21 11:46 BP 146/56 H 07/25/21 11:46 Pulse Ox 96 07/25/21 11:46 BMI result Body Mass Index 20.9 Const: General: cooperative Resp: Effort & Inspection: normal respiratory effort Cardio: Rate: regular rate Rhythm: regular rhythm GI: Palpation (GI): Soft to palpation and nontender Assessment and Plan Assessment and plan (1) Bacteremia: Status: Acute (2) Sepsis: Status: Acute Plan Group A strep blood,may be idiopathic There is no MRSA or VRE Urine Klebsiella pneumonia,sensitive to Ceftriaxone Would stop Cefepime and linezolid IV Ceftriaxone for 14 days as po absorption and intake may be unreliable, Time Spent With Patient Time: Total time spent is greater than 50% in coordination of care (as documented) at patient's floor/unit and/or counseling patient:
[2021-07-25] MEDS: cefTRIAXone sodium 1 GM in 0.9 % Sodium Chloride 50 ML IV (14:30)
--- NOTE | 2021-07-25 15:32 | MHC.CM.PN ---
nurse community case manager note electonic medical record reviewed along with case discussed with hospitalist , patient recenlty hospitalized and then rehabs, home with overlook vna for nrusing was home on wound vac , reports thta she has declined in strength and been in bed moslty has wound vac for stage 3 sacral ulcer to stage 4 . per documentation dressing changed by the surgeon today fresh silver alignate applied covered with dry gauze, change posirtion every two hours, continues on iv zyvox and iv cefepime, analgeics iv morphine prn id also following discharge plan return home with overlook vna for nrusing home pt < wound vac vs str patient with dementia does not want str and wants to take her home , will need pt evaluation
[2021-07-25] MEDS: Acetaminophen 325 MG TABLET 650 MG PO (15:46)
[2021-07-25 16:00] VITALS: BP 120/55; PULSE 88; RESP 16; TEMP 36.6; O2SAT 98
[2021-07-25] MEDS: Morphine Sulfate 4 MG/ML CARTRIDGE 2 MG IVPUSH (17:12)
[2021-07-25 19:08] VITALS: BP 150/60; PULSE 87; RESP 16; TEMP 36.3; O2SAT 98
[2021-07-25] MEDS: amLODIPine Besylate 10 MG TABLET PO (21:07)
[2021-07-25] MEDS: clonazePAM 1 MG TABLET PO (21:07)
[2021-07-25] MEDS: Tamsulosin HCL 0.4 MG CAPSULE PO (21:07)
[2021-07-25 23:23] VITALS: BP 140/65; PULSE 71; RESP 18; TEMP 36.9; O2SAT 97
[2021-07-26 03:22] VITALS: BP 131/67; PULSE 80; RESP 16; TEMP 36.3; O2SAT 95
[2021-07-26] MEDS: Omeprazole 20 MG CAPSULE.DR PO (05:57)
[2021-07-26 06:53] LABS: Hematocrit 25.3 % (37.0-47.0); Hemoglobin 8.3 g/dl (12.0-16.0); Mean Corpuscular HGB Conc 32.8 g/dl (31.0-35.0); Mean Corpuscular Volume 91.3 fL (80.0-98.0); Mean Platelet Volume 9.5 fL (9.4-12.3); Platelet Count 373 X10*3/uL (160-400); Red Blood Count 2.77 X10*6/uL (4.20-5.50); Red Cell Distribution Width 14.7 % (11.0-16.0); White Blood Count 19.3 X10*3/uL (4.8-10.8)
--- NOTE | 2021-07-26 07:00 | CA_ITS ---
Transthoracic Echocardiogram Patient (Last, First, Middle): Georgina Jamil J Gender: Female Date of : 1940 Age: 81 Procedure Date: 07/26/2021 Procedure Type: Transthoracic Echocardiogram Location: S3E Height: 172.72 cm Weight: 62.14 kg BSA: 1.74 m2 Heart Rate: bpm BP: 171 / 72 mmHg Technology Advisor: JACQUELINE Referring MD: Dileep Luciano MD Automotive Detailer: Ernesto Verma MD Symptoms: bacteremia Study Quality: Fair ECG Rhythm: Sinus Conclusions: - 1. Normal LV systolic function with mild LVH with grade 1 diastolic dysfunction 2. No clear vegetations seen on this study 3. mild mitral regurgitation 4. Normal RV systolic pressure 5. No gross pericardial effusion Findings Left Ventricle Normal left ventricular size and systolic function. There is mildly increased left ventricular wall thickness. The visually estimated ejection fraction is between 65-70%. Spectral Doppler is indicative of an impaired relaxation filling pattern. E/E prime ratio is <8, consistent with normal filling pressures. Evidence suggests grade I (mild) diastolic dysfunction. Right Ventricle Normal right ventricular cavity size and systolic function. Atria The left atrium is normal in size. There is lipomatous hypertrophy of the interatrial septum. There is no evidence of interatrial shunt. The right atrium is normal in size. Aortic Valve The aortic valve structure and function is likely normal. There is no aortic valve stenosis. There is no aortic valve regurgitation. Mitral Valve There is mild anterior and posterior mitral leaflet thickening. There is mild mitral valve regurgitation. There is no mitral valve stenosis. Pulmonic Valve The pulmonic valve is likely normal. Tricuspid Valve Normal tricuspid valve structure. There is mild tricuspid valve regurgitation. The right ventricular systolic pressure is normal. The right ventricular systolic pressure is 28 mmHg. Low right atrial pressure. There is no evidence of pulmonary hypertension. Great Vessels All visible segments of the aorta are normal in size. The pulmonary artery was not well visualized. Venous The inferior vena cava is collapsed, consistent with reduced intravascular volume. Pericardium/Pleural There is no evidence of pericardial effusion. Prior Study Comparison No significant change compared to prior study dated: 05/10/2021. Recommendations, Care & Conclusions Consider a MARIELLA if clinically appropriate. Measurements 2D Linear Measurements IVSd: 1.25 0.6-0.9/0.6-1.0 cm LVIDd: 3.98 3.9-5.3/4.2-5.9 cm LVIDd Index: 2.29 2.4-3.2/2.2-3.1 cm/m2 LVIDs: 2.00 2.0-3.6 cm LVPWd: 1.24 0.7-1.1 cm LA Diam: 3.00 2.7-3.8/3.0-4.0 cm LAIDs Index: 1.72 1.5-2.3 cm/m2 LV Mass: 216.11 67-162/88-224 g LV Mass Index: 124.20 43-95/49-115 g/m2 LVOT Diam: 2.00 3.0+(-)1.3 cm 2D Systolic Function EF 4C: 70.20 >55% EF 2C: 67.00 >55% EF BiP: 69.10 >55% Mitral Valve MV Pk E: 0.50 MV PK A: 0.86 MV Decel Time: 184.00 E/A: 0.60 E'Lateral: 6.71 E'Medial: 5.66 E/E' Med: 8.90 E/E' Lat: 7.50 PHT: 54.00 MVA PHT: 4.07 Decel [place]: 2.74 Aortic Valve AoV Pk [place]: 1.45 AoV Mn [place]: 0.94 AoV VTI: 0.26 AoV Pk Grad: 8.00 Aov Mn Grad: 4.00 MICHELLE Cont.VTI: 2.26 LVOT LVOT Pk [place]: 1.04 LVOT Mn [place]: 0.69 LVOT VTI: 0.19 LVOT Pk Grad: 4.00 LVOT Mn Grad: 2.00 LVOT Diam: 2.00 LVOT Area: 3.14 Diastolic Function MV Pk E: 0.50 MV Pk A: 0.86 E/A: 0.60 E'Medial: 5.66 E/E' Med: 8.90 E' Laterial: 6.71 E/E' Lat: 7.50 Right Ventricle TAPSE (mm): 23.60 TVS' [place]: 17.50 Tricuspid Valve TR Pk [place]: 2.52 TR Pk Grad: 25.00 RA Press: 3.00 RVSP: 28.00 Great Vessels Aorta Sinus of Valsalva: 3.20 2.0-3.[address] [place]: 2.34 1.7-3.4 cm Ao Asc: 3.00 2.1-3.4 cm Updated in Other Vendor System with Status of Final Ernesto Verma MD electronically signed on 07/27/2021 8:52:47 AM with status of Final
[2021-07-26 07:07] LABS: Anion Gap 14 (12-20); Blood Urea Nitrogen 55 mg/dL (9-16); Calcium 8.1 mg/dL (8.4-10.2); Carbon Dioxide 21 mmol/L (22-29); Chloride 101 mmol/L (96-108); Creatinine Clr Calc Pharmacy 29.9; Estimated Glomerular Filt Rate 35; Glucose Random 106 mg/dL (60-115); Potassium 4.9 mmol/L (3.3-5.1); Sodium 131 mmol/L (135-145)
[2021-07-26 07:47] VITALS: BP 142/65; PULSE 80; RESP 18; TEMP 37.7; O2SAT 98
--- NOTE | 2021-07-26 07:55 | P.PNIM_ITS ---
Subjective Subjective Date of Service: 07/26/21 Interval History: bactermia Review of Systems Patient denies any new complaint, denies any chest pain or shortness of breath or abdominal pain or fever chills or cough or phlegm. Physical Exam Vital Signs: Vital Signs: Last Vital Signs Temp 99.8 F 07/26/21 07:47 Pulse 80 07/26/21 07:47 Resp 18 07/26/21 07:47 BP 142/65 H 07/26/21 07:47 Pulse Ox 98 07/26/21 07:47 BMI result Body Mass Index 20.9 Appearance: Alert.? Oriented X3.? not in distress.? cvs: rrr, [id number] , no murmur res: air entry fair. abd: no rebound or guarding ,nt, bs present. ext pulses present , no cyanosis,Large sacral decubitus ulcer, mostly clean with good granulation except for exposed bone on the left side. neuro: axo3 , nonfocal. Objective Data Active Medications Acetaminophen (Acetaminophen 325 Mg Tablet) 650 mg PO Q6H PRN PRN Reason: Pain, Mild (Pain Scale 1-3) Last Admin: 07/25/21 15:46 Dose: 650 mg Documented by: SALOMÓN Amlodipine Besylate (Amlodipine Besylate 10 Mg Tablet) 10 mg PO BEDTIME [facility]; Protocol Last Admin: 07/25/21 21:07 Dose: 10 mg Documented by: YADI Ascorbic Acid (Ascorbic Acid 500 Mg Tablet) 1,000 mg PO DAILY [facility] Last Admin: 07/25/21 08:36 Dose: 1,000 mg Documented by: SALOMÓN Aspirin (Aspirin Enteric Coated 81 Mg Tablet.) 81 mg PO DAILY [facility] Last Admin: 07/25/21 08:37 Dose: 81 mg Documented by: SALOMÓN Calcitonin [place] (Calcitonin,[place],Synth Nasal 3.7 Ml Bottle) 1 spray NOSTRIL-B DAILY [facility] Last Admin: 07/25/21 08:49 Dose: Not Given Documented by: SALOMÓN Non-Admin Reason: Med Not Available Carvedilol (Carvedilol 6.25 Mg Tablet) 6.25 mg PO BID [facility]; Protocol Last Admin: 07/25/21 21:06 Dose: 6.25 mg Documented by: YADI Clonazepam (Clonazepam 1 Mg Tablet) 1 mg PO BEDTIME [facility] Last Admin: 07/25/21 21:07 Dose: 1 mg Documented by: YADI Donepezil HCl (Donepezil Hcl 10 Mg Tablet) 10 mg PO DAILY [facility] Last Admin: 07/25/21 08:36 Dose: 10 mg Documented by: SALOMÓN Ferrous Sulfate (Ferrous Sulfate 324 Mg Tablet.) 324 mg PO DAILY [facility] Last Admin: 07/25/21 08:36 Dose: 324 mg Documented by: SALOMÓN Guaifenesin (Guaifenesin 100 Mg/5 Ml Liquid) 5 ml PO Q4H PRN PRN Reason: Cough Ceftriaxone Sodium 1 gm/ (Sodium Chloride) 50 mls @ 100 mls/hr IV Q24H [facility] Last Infusion: 07/25/21 15:45 Dose: 0 mls/hr Documented by: SALOMÓN Melatonin (Melatonin 3 Mg Tablet) 3 mg PO BEDTIME PRN PRN Reason: Insomnia Morphine Sulfate (Morphine Sulfate 4 Mg/Ml Cartridge) 2 mg IVPUSH Q4H PRN; Protocol PRN Reason: Pain, Severe (Pain Scale 7-10) Last Admin: 07/25/21 17:12 Dose: 2 mg Documented by: SALOMÓN Multivitamins/Vitamin C (Multivitamin Tablet) 1 tab PO DAILY [facility] Last Admin: 07/25/21 08:36 Dose: 1 tab Documented by: SALOMÓN Omeprazole (Omeprazole 20 Mg Capsule.) 20 mg PO DAILY@0630 [facility] Last Admin: 07/26/21 05:57 Dose: 20 mg Documented by: YADI Pharmacy Consult (Consult Rx Perform Med Rec) 1 each MISCELLANE ONCE PRN PRN Reason: Consult order Sodium Chloride (0.9 % Sodium Chloride Flush 3 Ml Syringe) 3 ml IVFLUSH QSHIFT [facility] Last Admin: 07/25/21 21:07 Dose: 3 ml Documented by: YADI Tamsulosin HCl (Tamsulosin Hcl 0.4 Mg Capsule) 0.4 mg PO BEDTIME [facility] Last Admin: 07/25/21 21:07 Dose: 0.4 mg Documented by: YADI Vitamin D (Cholecalciferol (Vitamin D3) 25 Mcg Tablet) 25 mcg PO DAILY [facility] Last Admin: 07/25/21 08:36 Dose: 25 mcg Documented by: SALOMÓN Labs CBC & Chem 7: 07/26/21 06:07 07/26/21 06:07 Labs: Laboratory Results - last 24 hr 07/23/21 07/26/21 07/26/21 12:53 06:07 06:07 MCV 91.3 MCH 30.0 MCHC 32.8 RDW 14.7 Plt Count 373 MPV 9.5 Absolute Nucleated RBC 0.000 Nucleated RBC % (auto) 0.0 Smear Path Review SEE NOTE Anion Gap 14 Estim Creat Clear Calc 29.9 Estimated GFR 35 Random Glucose 106 Calcium 8.1 L Microbiology Microbiology Results: Microbiology 07/23/21 13:35 Blood Culture - Preliminary Blood - Venous Streptococcus pyogenes (Grp A) 07/23/21 12:53 Blood Culture - Preliminary Blood - Venous Streptococcus pyogenes (Grp A) 07/23/21 15:00 Urine Culture - Final Urine clean catch - Urine pagan top Klebsiella pneumoniae Assessment and Plan (1) Bacteremia: Status: Acute (2) Sepsis: Status: Acute Plan 81-year-old female with a past medical history of hypertension, hyperlipidemia, CAD, peripheral vascular disease, paroxysmal AFib, CKD, anemia, dementia, recent history of UTI-finished course of antibiotics; 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 presenting with left hip and found to be septic likely of decub ulcer source, UTI? and she is failing at home. Sepsis/ Bacteremia: give prior history of VRE and Pseudomonas will treat with IV Zyvox, Cefepime. ? Strep group a bacteremia, repeat culture pending urine culture: Klebsiella pneumoniae ?leukocytosis trending down,no fevers) ? Id and Wound Care evaluation noted- continue current antibiotics, discussed with ID and surgery sepsis probably secondary to bacteremia/ UTI- less likely to decubitii ? continue ceftriaxone day 2. ?echo ordered ?surgery evaluation also added. UTI--Same Abx as above Anemia of chronic disease--no acute component, monitor if drops further consider transufison CKD3--Creatine is witin baseline History of hypertension: Continue Norvasc and Coreg History of peripheral vascular disease/CAD:? She does not tolerate statin, on Repatha SureClick (not on formulary), Aspirin and BB History of paroxysmal AFib: Rate controlled.? Not on anticoagulation secondary to anemia, high tendency to bleed.? Coreg for rate control Dementia- unclear etiology--Aricept decubitus? ulcer: continue wound care, nutrition following. encouraged for p.o. intake. Wound care follow-up. DVT prophylaxis:? SCD boots Code status:? DNI only. Not DNR!! ? Patient : bacteremia, decubitus? ulcer. repeat blood culture, echo pending,? Patient currently on IV antibiotics. Quality Stroke Does the patient have a stroke diagnosis?: No VTE Prior VTE?: No VTE Risk Level:: Medical - moderate - high VTE Device Contraindication: N/A - Device Ordered VTE Drug Contraindication: Treatment Not Tolerated
[2021-07-26] MEDS: Ascorbic Acid 500 MG TABLET 1000 MG PO (08:31)
[2021-07-26] MEDS: carvediloL 6.25 MG TABLET PO ×2 (08:31→21:17)
[2021-07-26] MEDS: Multivitamin TABLET 1 TAB PO (08:31)
[2021-07-26] MEDS: Ferrous Sulfate 324 MG TABLET.DR PO (08:31)
[2021-07-26] MEDS: Donepezil HCl 10 MG TABLET PO (08:31)
[2021-07-26] MEDS: Aspirin Enteric Coated 81 MG TABLET.DR PO (08:31)
[2021-07-26] MEDS: Cholecalciferol (Vitamin D3) 25 MCG TABLET PO (08:34)
[2021-07-26] MEDS: 0.9 % Sodium Chloride Flush 3 ML SYRINGE IVFLUSH ×3 (08:34→21:17)
[2021-07-26 11:03] VITALS: BP 147/68; PULSE 73; RESP 18; TEMP 37.1; O2SAT 100
[2021-07-26] MEDS: cefTRIAXone sodium 1 GM in 0.9 % Sodium Chloride 50 ML IV (14:39)
[2021-07-26] MEDS: Acetaminophen 325 MG TABLET 650 MG PO (15:21)
[2021-07-26 16:00] VITALS: BP 122/64; PULSE 78; RESP 18; TEMP 37.1; O2SAT 95
[2021-07-26 19:27] VITALS: BP 148/73; PULSE 78; RESP 18; TEMP 36.6; O2SAT 98
[2021-07-26] MEDS: amLODIPine Besylate 10 MG TABLET PO (21:17)
[2021-07-26] MEDS: Tamsulosin HCL 0.4 MG CAPSULE PO (21:17)
[2021-07-26] MEDS: clonazePAM 1 MG TABLET PO (21:17)
[2021-07-26 23:22] VITALS: BP 121/48; PULSE 75; RESP 17; TEMP 36.3; O2SAT 95
[2021-07-27] MEDS: Morphine Sulfate 4 MG/ML CARTRIDGE 2 MG IVPUSH ×2 (03:58→21:27)
[2021-07-27] MEDS: Omeprazole 20 MG CAPSULE.DR PO (05:24)
[2021-07-27 07:36] VITALS: BP 153/66; PULSE 84; RESP 18; TEMP 36.9; O2SAT 97
--- NOTE | 2021-07-27 07:43 | P.PNIM_ITS ---
Subjective Subjective Date of Service: 07/27/21 Interval History: bacteremia Review of Systems Patient denies any new complaint, denies any chest pain or shortness of breath or abdominal pain or fever chills or cough or phlegm. Physical Exam Vital Signs: Vital Signs: Last Vital Signs Temp 98.4 F 07/27/21 07:36 Pulse 84 07/27/21 07:36 Resp 18 07/27/21 07:36 BP 153/66 H 07/27/21 07:36 Pulse Ox 97 07/27/21 07:36 BMI result Body Mass Index 20.9 Appearance: Alert.? Oriented X3.? not in distress.? cvs: rrr, [id number] , no murmur res: air entry fair. abd: no rebound or guarding ,nt, bs present. ext pulses present , no cyanosis,Large sacral decubitus ulcer, mostly clean with good granulation except for exposed bone on the left side. neuro: axo3 , nonfocal. Objective Data Active Medications Acetaminophen (Acetaminophen 325 Mg Tablet) 650 mg PO Q6H PRN PRN Reason: Pain, Mild (Pain Scale 1-3) Last Admin: 07/26/21 15:21 Dose: 650 mg Documented by: KARY Amlodipine Besylate (Amlodipine Besylate 10 Mg Tablet) 10 mg PO BEDTIME [facility]; Protocol Last Admin: 07/26/21 21:17 Dose: 10 mg Documented by: RUY Ascorbic Acid (Ascorbic Acid 500 Mg Tablet) 1,000 mg PO DAILY [facility] Last Admin: 07/26/21 08:31 Dose: 1,000 mg Documented by: KARY Aspirin (Aspirin Enteric Coated 81 Mg Tablet.) 81 mg PO DAILY [facility] Last Admin: 07/26/21 08:31 Dose: 81 mg Documented by: KARY Calcitonin [place] (Calcitonin,[place],Synth Nasal 3.7 Ml Bottle) 1 spray NOSTRIL-B DAILY [facility] Last Admin: 07/26/21 08:32 Dose: Not Given Documented by: KARY Non-Admin Reason: Med Not Available Carvedilol (Carvedilol 6.25 Mg Tablet) 6.25 mg PO BID [facility]; Protocol Last Admin: 07/26/21 21:17 Dose: 6.25 mg Documented by: RUY Clonazepam (Clonazepam 1 Mg Tablet) 1 mg PO BEDTIME [facility] Last Admin: 07/26/21 21:17 Dose: 1 mg Documented by: RUY Donepezil HCl (Donepezil Hcl 10 Mg Tablet) 10 mg PO DAILY [facility] Last Admin: 07/26/21 08:31 Dose: 10 mg Documented by: KARY Ferrous Sulfate (Ferrous Sulfate 324 Mg Tablet.) 324 mg PO DAILY [facility] Last Admin: 07/26/21 08:31 Dose: 324 mg Documented by: KARY Guaifenesin (Guaifenesin 100 Mg/5 Ml Liquid) 5 ml PO Q4H PRN PRN Reason: Cough Ceftriaxone Sodium 1 gm/ (Sodium Chloride) 50 mls @ 100 mls/hr IV Q24H [facility] Last Infusion: 07/26/21 15:20 Dose: 0 mls/hr Documented by: KARY Melatonin (Melatonin 3 Mg Tablet) 3 mg PO BEDTIME PRN PRN Reason: Insomnia Morphine Sulfate (Morphine Sulfate 4 Mg/Ml Cartridge) 2 mg IVPUSH Q4H PRN; Protocol PRN Reason: Pain, Severe (Pain Scale 7-10) Last Admin: 07/27/21 03:58 Dose: 2 mg Documented by: RUY Multivitamins/Vitamin C (Multivitamin Tablet) 1 tab PO DAILY [facility] Last Admin: 07/26/21 08:31 Dose: 1 tab Documented by: KARY Omeprazole (Omeprazole 20 Mg Capsule.) 20 mg PO DAILY@0630 [facility] Last Admin: 07/27/21 05:24 Dose: 20 mg Documented by: RUY Pharmacy Consult (Consult Rx Perform Med Rec) 1 each MISCELLANE ONCE PRN PRN Reason: Consult order Sodium Chloride (0.9 % Sodium Chloride Flush 3 Ml Syringe) 3 ml IVFLUSH QSHIFT [facility] Last Admin: 07/26/21 21:17 Dose: 3 ml Documented by: RUY Tamsulosin HCl (Tamsulosin Hcl 0.4 Mg Capsule) 0.4 mg PO BEDTIME [facility] Last Admin: 07/26/21 21:17 Dose: 0.4 mg Documented by: RUY Vitamin D (Cholecalciferol (Vitamin D3) 25 Mcg Tablet) 25 mcg PO DAILY [facility] Last Admin: 07/26/21 08:34 Dose: 25 mcg Documented by: KARY Labs CBC & Chem 7: 07/26/21 06:07 07/26/21 06:07 Microbiology Microbiology Results: Microbiology 07/25/21 12:30 Blood Culture - Preliminary Blood - Venous No growth after 24 hours. 07/25/21 12:30 Blood Culture - Preliminary Blood - Venous No growth after 24 hours. 07/23/21 13:35 Blood Culture - Final Blood - Venous Streptococcus pyogenes (Grp A) 07/23/21 12:53 Blood Culture - Final Blood - Venous Streptococcus pyogenes (Grp A) Assessment and Plan (1) Bacteremia: Status: Acute (2) Sepsis: Status: Acute Plan 81-year-old female with a past medical history of hypertension, hyperlipidemia, CAD, peripheral vascular disease, paroxysmal AFib, CKD, anemia, dementia, recent history of UTI-finished course of antibiotics; 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 presenting with left hip and found to be septic likely of decub ulcer source, UTI? and she is failing at home. Sepsis/ Bacteremia: give prior history of VRE and Pseudomonas ? Strep group A bacteremia, repeat culture pending urine culture: Klebsiella pneumoniae ?leukocytosis trending down,no fevers) ? Id and Wound Care evaluation noted- continue current antibiotics, discussed with ID and surgery sepsis probably secondary to bacteremia/ UTI-possible likely decubtii ulcer area.less likely ostomyelitis ? continue ceftriaxone day 4.will need 2 weeks antibiotics ?echo done and pending ?surgery evaluation noted , wound care follow up. UTI--Same Abx as above. Anemia of chronic disease--no acute component, monitor if drops further consider transufison CKD3--Creatine is witin baseline History of hypertension: Continue Norvasc and Coreg. History of peripheral vascular disease/CAD:? She does not tolerate statin, Aspirin and BB History of paroxysmal AFib: Rate controlled.? Not on anticoagulation secondary to anemia, high tendency to bleed.? Coreg for rate control Dementia- unclear etiology--Aricept decubitus? ulcer: continue wound care, nutrition following. encouraged for p.o. intake. turn q2hr Wound care follow-up. DVT prophylaxis:? SCD boots Code status:? DNI only. Not DNR!! ? Patient : bacteremia, decubitus? ulcer. repeat blood culture, echo pending,? Patient currently on IV antibiotics. above is updated ( patient ,her , daughter) d/w with staff in detail. Quality Stroke Does the patient have a stroke diagnosis?: No VTE Prior VTE?: No VTE Risk Level:: Medical - moderate - high VTE Device Contraindication: N/A - Device Ordered VTE Drug Contraindication: Treatment Not Tolerated
[2021-07-27] MEDS: 0.9 % Sodium Chloride Flush 3 ML SYRINGE IVFLUSH ×3 (08:45→21:20)
[2021-07-27] MEDS: Aspirin Enteric Coated 81 MG TABLET.DR PO (08:45)
[2021-07-27] MEDS: Donepezil HCl 10 MG TABLET PO (08:45)
[2021-07-27] MEDS: Ascorbic Acid 500 MG TABLET 1000 MG PO (08:45)
[2021-07-27] MEDS: carvediloL 6.25 MG TABLET PO ×2 (08:45→21:20)
[2021-07-27] MEDS: Cholecalciferol (Vitamin D3) 25 MCG TABLET PO (08:45)
[2021-07-27] MEDS: Multivitamin TABLET 1 TAB PO (08:45)
[2021-07-27] MEDS: Ferrous Sulfate 324 MG TABLET.DR PO (08:46)
[2021-07-27 11:33] VITALS: BP 153/66; PULSE 84; O2SAT 97
--- NOTE | 2021-07-27 12:07 | MHC.CLN ---
F/U PATIENT WITH STAGE 4 SACRAL WOUND AND WOUND VAC. RECENT INTAKE POOR PER FAMILY. INTAKE VARIABLE X 3 DAYS, USUALLY FAIR/POOR. DIET=REGULAR. ENSURE TID PROVIDES ADDITIONAL 1050 KCALS, 60 GRAMS PROTEIN TO PROMOTE WOUND HEALING AND NUTRITIONAL STATUS. ENCOURAGE INTAKE AT MEALS, SUPPLEMENT, AND SNACKS ABLE.
--- NOTE | 2021-07-27 14:01 | MHC.CM.PN ---
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 ACTION BLS FOR TRANSPORT 2 MAX ASSIST , SSSSSSSSSSSSSTAGE 54 SACRAL ULCER , DEMENTIA POOR SAFETY AWARENESS AND HIGH FALL RISK HCP UPLOADED COVID VACINATIONS X3
[2021-07-27] MEDS: cefTRIAXone sodium 1 GM in 0.9 % Sodium Chloride 50 ML IV (14:07)
--- NOTE | 2021-07-27 14:16 | MHC.CM.PN ---
ELECTRONI9 MEDICAL RECOD REVIEWED ALONG WITH CASE DISCUSEE WITH [facility] , MET WITH PATIENT AND HER AT BEDSIDE , EXPLAINED THET PATIENT WAS SEEN BY THE PHYSICAL THERAPIST AND RECOMENDED STR ( SHE IS TWO Mx assist ) qnd it would not be safe for her to return home like thsi , # she will need a pic line placmeent for iv abx qd (on dy 4) for total 4 weeks, 3 sacral ulcer woudn stage 4-03 dressing changes qd asked if wr would referr to [facility] , and surrounding area referrals sent to [facility] , [facility] , [facility] , [facility] , [facility] in [facility] vaccinated x3 hcp uploaded will need [facility] transportation
--- NOTE | 2021-07-27 14:21 | MHC.CM.PN ---
nurse foster care case manager tom ring sent out agin [place] area search for str for ;l-ebonie denials sec to no bed availability [facility] guillermo gonzales [facility] care [facility] care [facility], [facility] , [facility] j[facility] [place], [facility] [place]annon cazares e/w referrasl also sent to [facility] , [facility] , [facility], [facility] [place], and [facility]p l-ebonie will need rapid covid and los ,30 days
[2021-07-27 15:36] VITALS: BP 148/69; PULSE 79; RESP 17; TEMP 37.1; O2SAT 98
--- NOTE | 2021-07-27 15:51 | P.CONWO_ITS ---
History of Present Illness Data of Consult Service Date: 07/27/21 Requesting physician: Dileep Luciano Primary Care Provider: Walter Braun MD HPI Reason for consult: follow up wound Asked by Dr. Luciano to follow-up on wound decompensation as compared to wound clinic evaluation. Wound VAC has been discontinued. She is on IV Rocephin for GP bacteremia. She is interacting better, eating better and generally looking better than her initial wound evaluation done earlier this week. Now denies pain at the site of the wound and allows me to probe without terrible pain. [facility] Medical History Afib Anemia Anemia CHF (congestive heart failure) Chronic kidney disease CLL (chronic lymphocytic leukemia) Coronary artery calcification seen on CAT scan COVID-19 vaccine series completed Decubitus ulcer Decubitus ulcer of back, stage 3 Dementia Essential hypertension Hx of reduction of closed dislocation Hyperlipidemia Hypotension NSTEMI (non-ST elevated myocardial infarction) Osteomyelitis Peripheral artery disease Peripheral vascular disease Pulmonary fibrosis Ulcerative colitis Vertigo VRE bacteremia Family History Father No problems noted. Mother No problems noted. Surgical History H/O carotid endarterectomy H/O colonoscopy History of hip replacement History of liver biopsy History of revision of total hip arthroplasty Hx of lumbar discectomy S/P popliteal-distal bypass Social History Household Members: Spouse and Family Household Members Other:: Housing: House Are you a primary critical care physician assistant to a significant other at home: No Do you presently have visiting nurse or other home services: Yes Unable to assess alcohol history related to: Unknown Alcohol intake: never Patient Tobacco Use Status: Never used Tobacco Tobacco use type: Cigarette Years Smoked: 62 e-Cigarette/Vaping Use: Currently Using Second Hand Smoke Exposure: No Use of substances other than those prescribed or required for medical reasons: No Currently Displaying Signs/Symptoms of Drug Intoxication Withdrawal: No Have you been hit, kicked, punched, or otherwise hurt by someone within the past year? If so, by whom?: No Do you feel safe in your current relationship?: No Current Relationship Is there a partner from a previous relationship who is making you feel unsafe now?: No Are you made to feel afraid or neglected: No Advance Directives: Yes Advance Directives on File: Yes Advance Directives Date on File: 01/03/21 Do you have thoughts of harming others: None Do you have a plan to hurt others: No Plan Recently lost weight without trying: Yes How much weight loss: 2-13 pounds Eating poorly because of decreased appetite: Yes Nutrition screen score: 4 Nutrition Risks: No Nutritional Risk Patient : No : No Poor oral hygiene: No service: No Current occupational status: retired 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 Meds Allergies Allergy/AdvReac Type Severity Reaction Status Date / Time diazepam [DIAZEPAM] Allergy Severe RASH Verified 07/04/21 15:41 [id number] Reductase Allergy Severe Muscle Pain Verified 07/04/21 15:41 Inhibitor [[id number] REDUCTASE INHIBITOR] Active Medications: Current Medications Acetaminophen (Acetaminophen 325 Mg Tablet) 650 mg PO Q6H PRN PRN Reason: Pain, Mild (Pain Scale 1-3) Last Admin: 07/26/21 15:21 Dose: 650 mg Documented by: Amlodipine Besylate (Amlodipine Besylate 10 Mg Tablet) 10 mg PO BEDTIME [facility]; Protocol Last Admin: 07/26/21 21:17 Dose: 10 mg Documented by: Ascorbic Acid (Ascorbic Acid 500 Mg Tablet) 1,000 mg PO DAILY [facility] Last Admin: 07/27/21 08:45 Dose: 1,000 mg Documented by: Aspirin (Aspirin Enteric Coated 81 Mg Tablet.) 81 mg PO DAILY [facility] Last Admin: 07/27/21 08:45 Dose: 81 mg Documented by: Calcitonin [place] (Calcitonin,[place],Synth Nasal 3.7 Ml Bottle) 1 spray NOSTRIL-B DAILY [facility] Last Admin: 07/27/21 08:46 Dose: Not Given Documented by: Carvedilol (Carvedilol 6.25 Mg Tablet) 6.25 mg PO BID [facility]; Protocol Last Admin: 07/27/21 08:45 Dose: 6.25 mg Documented by: Clonazepam (Clonazepam 1 Mg Tablet) 1 mg PO BEDTIME [facility] Last Admin: 07/26/21 21:17 Dose: 1 mg Documented by: Donepezil HCl (Donepezil Hcl 10 Mg Tablet) 10 mg PO DAILY [facility] Last Admin: 07/27/21 08:45 Dose: 10 mg Documented by: Ferrous Sulfate (Ferrous Sulfate 324 Mg Tablet.) 324 mg PO DAILY [facility] Last Admin: 07/27/21 08:46 Dose: 324 mg Documented by: Guaifenesin (Guaifenesin 100 Mg/5 Ml Liquid) 5 ml PO Q4H PRN PRN Reason: Cough Ceftriaxone Sodium 1 gm/ (Sodium Chloride) 50 mls @ 100 mls/hr IV Q24H [facility] Last Infusion: 07/27/21 14:51 Dose: Infused Documented by: Melatonin (Melatonin 3 Mg Tablet) 3 mg PO BEDTIME PRN PRN Reason: Insomnia Morphine Sulfate (Morphine Sulfate 4 Mg/Ml Cartridge) 2 mg IVPUSH Q4H PRN; Protocol PRN Reason: Pain, Severe (Pain Scale 7-10) Last Admin: 07/27/21 03:58 Dose: 2 mg Documented by: Multivitamins/Vitamin C (Multivitamin Tablet) 1 tab PO DAILY [facility] Last Admin: 07/27/21 08:45 Dose: 1 tab Documented by: Omeprazole (Omeprazole 20 Mg Capsule.) 20 mg PO DAILY@0630 [facility] Last Admin: 07/27/21 05:24 Dose: 20 mg Documented by: Pharmacy Consult (Consult Rx Perform Med Rec) 1 each MISCELLANE ONCE PRN PRN Reason: Consult order Sodium Chloride (0.9 % Sodium Chloride Flush 3 Ml Syringe) 3 ml IVFLUSH QSHIFT [facility] Last Admin: 07/27/21 08:45 Dose: 3 ml Documented by: Tamsulosin HCl (Tamsulosin Hcl 0.4 Mg Capsule) 0.4 mg PO BEDTIME [facility] Last Admin: 07/26/21 21:17 Dose: 0.4 mg Documented by: Vitamin D (Cholecalciferol (Vitamin D3) 25 Mcg Tablet) 25 mcg PO DAILY [facility] Last Admin: 07/27/21 08:45 Dose: 25 mcg Documented by: Home Medications Medication Instructions Recorded Confirmed Last Taken Type ascorbic acid (vitamin C) 1,000 mg 1,000 mg PO DAILY tab 03/09/20 07/23/21 04/29/21 History tablet aspirin 81 mg tablet,delayed 81 mg PO DAILY 03/09/20 07/23/21 04/28/21 History release cholecalciferol (vitamin D3) 250 25 mcg PO DAILY 03/09/20 07/23/21 04/29/21 History mcg (10,000 unit) capsule [id number] acid 0.4 1 tab PO DAILY 03/09/20 07/23/21 04/29/21 History mg-lycopene 300 mcg-lutein 250 mcg tablet (Centrum Silver) Lactobacillus acidophilus 10 10,000 mmu cells PO DAILY 05/07/21 07/23/21 Unknown History billion cell capsule (Probiotic) amlodipine 10 mg tablet 10 mg PO BEDTIME 05/07/21 07/23/21 Unknown History calcitonin ([place]) 200 1 spray INTRANASAL DAILY 05/07/21 07/23/21 Unknown History unit/actuation nasal spray evolocumab 140 mg/mL subcutaneous 140 mg SUBCUT Q2W 05/07/21 07/23/21 05/17/21 History pen injector (Repatha SureClick) ferrous sulfate 325 mg (65 mg 325 mg PO DAILY 05/07/21 07/23/21 Unknown History iron) tablet tamsulosin 0.4 mg capsule 0.4 mg PO BEDTIME 05/24/21 07/23/21 Unknown History carvedilol 6.25 mg tablet 6.25 mg PO BID 06/20/21 07/23/21 Unknown History donepezil 10 mg tablet 10 mg PO DAILY 06/26/21 07/23/21 Unknown History lisinopril 5 mg tablet 5 mg PO DAILY 07/04/21 07/23/21 Unknown History Physical Exam Vital Signs and Narrative: Vital Signs: Last Vital Signs Temp 98.8 F 07/27/21 15:36 Pulse 79 07/27/21 15:36 Resp 17 07/27/21 15:36 BP 148/69 H 07/27/21 15:36 Pulse Ox 98 07/27/21 15:36 BMI result Body Mass Index 20.9 Patient was transitioned to bed from recliner by nursing. Sacral PI 4 looks better, actually. There are only two smaller spot areas now where exposed bone is appreciated, one at central sacrum felt as pinpoint ridges of unhealthy bone poking through pink tissue, and the other along the left lateral sacral ridge. Note that brown nonviable soft tissue deep within the left lateral wound in undermining region 8-10 o'clock shows about 4 x 2 cm that would best be debrided (not by me). 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 No odor. No sacral fluctuance. 85% of the wound base looks pink and healthy. Results Labs CBC and Chem 7: 07/26/21 06:07 07/26/21 06:07 Assessment and Plan (1) Ulcer of sacral region, stage 4: Status: Acute Plan 81-year-old female with stage IV pressure ulcer, concern for osteomyelitis with exposed bone, improvement seen with granulation after several days of IV antibiotics. Per ID, no indication for 6 weeks of treatment in the absence of established bone infection. ID note actually only indicates to complete 2 weeks of IV antibiotics for the indication of bacteremia. I extrapolated. Tagged WBC unlikely to be helpful because of the sacral insufficiency fracture. MRI could be helpful to differentiate sacral fracture from periosteal erosion, however osteoporosis is rather advanced on plain film. Defer to attending service. With this short exposure of IV antibiotics, her clinical condition has improved. She does require debridement by surgery of the nonviable tissue described in the physical exam section, particularly if wound vac replacement is being considered. Continue with alginate packing as the primary dressing. I encour aged her to push oral protein intake. Would not replace wound VAC over non debrided tissue. Also, suggest at least 1 week of antibiotic completion before considering wound VAC replacement.
[2021-07-27] MEDS: amLODIPine Besylate 10 MG TABLET PO (21:19)
[2021-07-27] MEDS: clonazePAM 1 MG TABLET PO (21:20)
[2021-07-27] MEDS: Tamsulosin HCL 0.4 MG CAPSULE PO (21:20)
[2021-07-27 23:33] VITALS: BP 141/65; PULSE 82; RESP 18; TEMP 37.2; O2SAT 96
[2021-07-28] MEDS: Omeprazole 20 MG CAPSULE.DR PO (05:34)
[2021-07-28] MEDS: Morphine Sulfate 4 MG/ML CARTRIDGE 2 MG IVPUSH (05:40)
[2021-07-28 06:06] LABS: Hematocrit 22.4 % (37.0-47.0); Hemoglobin 7.3 g/dl (12.0-16.0); Mean Corpuscular HGB Conc 32.6 g/dl (31.0-35.0); Mean Corpuscular Hemoglobin 29.8 pg (27.0-33.0); Mean Corpuscular Volume 91.4 fL (80.0-98.0); Mean Platelet Volume 9.6 fL (9.4-12.3); Platelet Count 314 X10*3/uL (160-400); Red Blood Count 2.45 X10*6/uL (4.20-5.50); Red Cell Distribution Width 14.6 % (11.0-16.0); White Blood Count 19.4 X10*3/uL (4.8-10.8)
[2021-07-28 06:41] LABS: Anion Gap 15 (12-20); Blood Urea Nitrogen 66 mg/dL (9-16); Calcium 7.8 mg/dL (8.4-10.2); Carbon Dioxide 21 mmol/L (22-29); Chloride 101 mmol/L (96-108); Creatinine Clr Calc Pharmacy 31.6; Estimated Glomerular Filt Rate 37; Glucose Random 103 mg/dL (60-115); Potassium 5.2 mmol/L (3.3-5.1); Sodium 132 mmol/L (135-145)
[2021-07-28 07:41] LABS: Iron 18 mcg/dL (30-160); Percent Iron Saturation 14 % (15-50); Total Iron Binding Capacity 126 mcg/dL (228-428); Unsaturated Iron Binding 108 ug/dL
[2021-07-28 08:00] VITALS: BP 156/69; PULSE 88; RESP 18; TEMP 37.3; O2SAT 92
[2021-07-28] MEDS: Sodium Zirconium Cyclosilicate 5 GM POWD.PACK PO (08:55)
[2021-07-28] MEDS: Donepezil HCl 10 MG TABLET PO (08:55)
[2021-07-28] MEDS: Ascorbic Acid 500 MG TABLET 1000 MG PO (08:55)
[2021-07-28] MEDS: Aspirin Enteric Coated 81 MG TABLET.DR PO (08:55)
[2021-07-28] MEDS: Cholecalciferol (Vitamin D3) 25 MCG TABLET PO (08:55)
[2021-07-28] MEDS: 0.9 % Sodium Chloride Flush 3 ML SYRINGE IVFLUSH ×3 (08:55→19:39)
[2021-07-28] MEDS: Multivitamin TABLET 1 TAB PO (08:55)
[2021-07-28] MEDS: Ferrous Sulfate 324 MG TABLET.DR PO (08:56)
[2021-07-28] MEDS: carvediloL 6.25 MG TABLET PO ×2 (08:56→19:37)
[2021-07-28 10:38] LABS: Hematocrit 22.5 % (37.0-47.0); Hemoglobin 7.2 g/dl (12.0-16.0)
[2021-07-28 11:14] VITALS: BP 136/66; PULSE 74; RESP 18; TEMP 37.2; O2SAT 92
--- NOTE | 2021-07-28 12:45 | HO.PM.IMPN ---
Subjective Subjective Date of Service: 07/28/21 Interval History: bacteremia Review of Systems seems unchanged,denies any chest pain or sob or nausea or vomiting Physical Exam Vital Signs: Vital Signs: Last Vital Signs Temp 98.9 F 07/28/21 11:14 Pulse 74 07/28/21 11:14 Resp 18 07/28/21 11:14 BP 136/66 07/28/21 11:14 Pulse Ox 92 07/28/21 11:14 BMI result Body Mass Index 20.9 ?Appearance: Alert.? Oriented X3.? not in distress.? cvs: rrr, [id number] , no murmur res: air entry fair. abd: no rebound or guarding ,nt, bs present. ext pulses present , no cyanosis,Large sacral decubitus ulcer, mostly clean with good granulation except for exposed bone on the left side. neuro: axo3 , nonfocal. Objective Data Active Medications Acetaminophen (Acetaminophen 325 Mg Tablet) 650 mg PO Q6H PRN PRN Reason: Pain, Mild (Pain Scale 1-3) Last Admin: 07/26/21 15:21 Dose: 650 mg Documented by: KARY Amlodipine Besylate (Amlodipine Besylate 10 Mg Tablet) 10 mg PO BEDTIME [facility]; Protocol Last Admin: 07/27/21 21:19 Dose: 10 mg Documented by: YADI Ascorbic Acid (Ascorbic Acid 500 Mg Tablet) 1,000 mg PO DAILY [facility] Last Admin: 07/28/21 08:55 Dose: 1,000 mg Documented by: YAIMA Aspirin (Aspirin Enteric Coated 81 Mg Tablet.) 81 mg PO DAILY [facility] Last Admin: 07/28/21 08:55 Dose: 81 mg Documented by: YAIMA Calcitonin [place] (Calcitonin,[place],Synth Nasal 3.7 Ml Bottle) 1 spray NOSTRIL-B DAILY [facility] Last Admin: 07/28/21 08:56 Dose: Not Given Documented by: YAIMA Non-Admin Reason: Med Not Available Carvedilol (Carvedilol 6.25 Mg Tablet) 6.25 mg PO BID [facility]; Protocol Last Admin: 07/28/21 08:56 Dose: 6.25 mg Documented by: YAIMA Clonazepam (Clonazepam 1 Mg Tablet) 1 mg PO BEDTIME [facility] Last Admin: 07/27/21 21:20 Dose: 1 mg Documented by: YADI Donepezil HCl (Donepezil Hcl 10 Mg Tablet) 10 mg PO DAILY [facility] Last Admin: 07/28/21 08:55 Dose: 10 mg Documented by: YAIMA Ferrous Sulfate (Ferrous Sulfate 324 Mg Tablet.) 324 mg PO DAILY [facility] Last Admin: 07/28/21 08:56 Dose: 324 mg Documented by: YAIMA Guaifenesin (Guaifenesin 100 Mg/5 Ml Liquid) 5 ml PO Q4H PRN PRN Reason: Cough Ceftriaxone Sodium 1 gm/ (Sodium Chloride) 50 mls @ 100 mls/hr IV Q24H [facility] Last Infusion: 07/27/21 14:51 Dose: 0 mls/hr Documented by: COTEMA Melatonin (Melatonin 3 Mg Tablet) 3 mg PO BEDTIME PRN PRN Reason: Insomnia Morphine Sulfate (Morphine Sulfate 4 Mg/Ml Cartridge) 1 mg IVPUSH Q4H PRN; Protocol PRN Reason: Pain, Severe (Pain Scale 7-10) Multivitamins/Vitamin C (Multivitamin Tablet) 1 tab PO DAILY [facility] Last Admin: 07/28/21 08:55 Dose: 1 tab Documented by: YAIMA Omeprazole (Omeprazole 20 Mg Capsule.) 20 mg PO DAILY@0630 [facility] Last Admin: 07/28/21 05:34 Dose: 20 mg Documented by: YAIMA Pharmacy Consult (Consult Rx Perform Med Rec) 1 each MISCELLANE ONCE PRN PRN Reason: Consult order Sodium Chloride (0.9 % Sodium Chloride Flush 3 Ml Syringe) 3 ml IVFLUSH QSHIFT [facility] Last Admin: 07/28/21 08:55 Dose: 3 ml Documented by: YAIMA Tamsulosin HCl (Tamsulosin Hcl 0.4 Mg Capsule) 0.4 mg PO BEDTIME [facility] Last Admin: 07/27/21 21:20 Dose: 0.4 mg Documented by: YADI Vitamin D (Cholecalciferol (Vitamin D3) 25 Mcg Tablet) 25 mcg PO DAILY [facility] Last Admin: 07/28/21 08:55 Dose: 25 mcg Documented by: YAIMA Labs CBC & Chem 7: 07/28/21 10:22 07/28/21 05:27 Labs: Laboratory Results - last 24 hr 07/28/21 07/28/21 07/28/21 05:27 05:27 10:22 MCV 91.4 MCH 29.8 MCHC 32.6 RDW 14.6 Plt Count 314 MPV 9.6 Absolute Nucleated RBC 0.000 Nucleated RBC % (auto) 0.0 Anion Gap 15 Estim Creat Clear Calc 31.6 Estimated GFR 37 Random Glucose 103 Calcium 7.8 L Iron 18 L TIBC 126 L % Saturation 14 L Unsat Iron Binding 108 Blood Type B Positive Microbiology Microbiology Results: Microbiology 07/25/21 12:30 Blood Culture - Preliminary Blood - Venous No growth after 48 hours. 07/25/21 12:30 Blood Culture - Preliminary Blood - Venous No growth after 48 hours. Assessment and Plan (1) Bacteremia: Status: Acute (2) Sepsis: Status: Acute Plan 81-year-old female with a past medical history of hypertension, hyperlipidemia, CAD, peripheral vascular disease, paroxysmal AFib, CKD, anemia, dementia, recent history of UTI-finished course of antibiotics; 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 presenting with left hip and found to be septic likely of decub ulcer source, UTI? and she is failing at home. Sepsis/ Bacteremia: give prior history of VRE and Pseudomonas ? Strep group A bacteremia, repeat culture pending urine culture: Klebsiella pneumoniae ?leukocytosis trending down,no fevers) ? Id and Wound Care evaluation noted- continue current antibiotics, discussed with ID and surgery sepsis probably secondary to bacteremia/ UTI-possible likely decubtii ulcer area.less likely ostomyelitis ? continue ceftriaxone day 4.will need 2 weeks antibiotics ?echo done and pending ?surgery evaluation noted , wound care follow up. UTI--Same Abx as above. Anemia of chronic disease--no acute component, monitor if drops further consider transufison CKD3--Creatine is witin baseline History of hypertension: Continue Norvasc and Coreg. History of peripheral vascular disease/CAD:? She does not tolerate statin, Aspirin and BB History of paroxysmal AFib: Rate controlled.? Not on anticoagulation secondary to anemia, high tendency to bleed.? Coreg for rate control Dementia- unclear etiology--Aricept decubitus? ulcer: continue wound care, nutrition following. encouraged for p.o. intake. turn q2hr Wound care follow-up. DVT prophylaxis:? SCD boots Code status:? DNI only. Not DNR!! ? Patient : bacteremia, decubitus? ulcer. repeat blood culture, echo pending,? Patient currently on IV antibiotics. above is updated ( patient ,her , daughter) d/w with staff in detail. Quality Stroke Does the patient have a stroke diagnosis?: No VTE Prior VTE?: No VTE Risk Level:: Medical - moderate - high VTE Device Contraindication: N/A - Device Ordered VTE Drug Contraindication: Treatment Not Tolerated
[2021-07-28] MEDS: cefTRIAXone sodium 1 GM in 0.9 % Sodium Chloride 50 ML IV (13:35)
[2021-07-28 14:59] VITALS: BP 134/60; PULSE 85; RESP 18; TEMP 36.6; O2SAT 96
[2021-07-28] MEDS: amLODIPine Besylate 10 MG TABLET PO (19:37)
[2021-07-28] MEDS: Tamsulosin HCL 0.4 MG CAPSULE PO (19:37)
[2021-07-28] MEDS: Acetaminophen 325 MG TABLET 650 MG PO (19:37)
[2021-07-28] MEDS: clonazePAM 1 MG TABLET PO (19:37)
[2021-07-28 20:00] VITALS: BP 111/71; PULSE 68; RESP 18; TEMP 36.4; O2SAT 95
--- NOTE | 2021-07-28 22:49 | PM.PNGS ---
Subjective Subjective Date of Service: 07/28/21 Interval history: pt alert and active Physical Exam Vital Signs: Vital Signs: Last Vital Signs Temp 97.6 F 07/28/21 20:00 Pulse 68 07/28/21 20:00 Resp 18 07/28/21 20:00 BP 111/71 07/28/21 20:00 Pulse Ox 95 07/28/21 20:00 BMI result Body Mass Index 20.9 Skin: Other: sacral decubitus with good tissue all alround but a small area of around 1.5 cm with palpable bone present at base. the base granulation is pink but not as healthy granulation no obvious infection Objective Data Active Medications Acetaminophen (Acetaminophen 325 Mg Tablet) 650 mg PO Q6H PRN PRN Reason: Pain, Mild (Pain Scale 1-3) Last Admin: 07/28/21 19:37 Dose: 650 mg Documented by: EDUARD Amlodipine Besylate (Amlodipine Besylate 10 Mg Tablet) 10 mg PO BEDTIME [facility]; Protocol Last Admin: 07/28/21 19:37 Dose: 10 mg Documented by: EDUARD Ascorbic Acid (Ascorbic Acid 500 Mg Tablet) 1,000 mg PO DAILY [facility] Last Admin: 07/28/21 08:55 Dose: 1,000 mg Documented by: YAIMA Aspirin (Aspirin Enteric Coated 81 Mg Tablet.) 81 mg PO DAILY [facility] Last Admin: 07/28/21 08:55 Dose: 81 mg Documented by: YAIMA Calcitonin [place] (Calcitonin,[place],Synth Nasal 3.7 Ml Bottle) 1 spray NOSTRIL-B DAILY [facility] Last Admin: 07/28/21 08:56 Dose: Not Given Documented by: YAIMA Non-Admin Reason: Med Not Available Carvedilol (Carvedilol 6.25 Mg Tablet) 6.25 mg PO BID [facility]; Protocol Last Admin: 07/28/21 19:37 Dose: 6.25 mg Documented by: EDUARD Donepezil HCl (Donepezil Hcl 10 Mg Tablet) 10 mg PO DAILY [facility] Last Admin: 07/28/21 08:55 Dose: 10 mg Documented by: YAIMA Ferrous Sulfate (Ferrous Sulfate 324 Mg Tablet.) 324 mg PO DAILY [facility] Last Admin: 07/28/21 08:56 Dose: 324 mg Documented by: YAIMA Guaifenesin (Guaifenesin 100 Mg/5 Ml Liquid) 5 ml PO Q4H PRN PRN Reason: Cough Ceftriaxone Sodium 1 gm/ (Sodium Chloride) 50 mls @ 100 mls/hr IV Q24H [facility] Last Infusion: 07/28/21 14:08 Dose: 0 mls/hr Documented by: PARAMJIT Melatonin (Melatonin 3 Mg Tablet) 3 mg PO BEDTIME PRN PRN Reason: Insomnia Morphine Sulfate (Morphine Sulfate 4 Mg/Ml Cartridge) 1 mg IVPUSH Q4H PRN; Protocol PRN Reason: Pain, Severe (Pain Scale 7-10) Multivitamins/Vitamin C (Multivitamin Tablet) 1 tab PO DAILY [facility] Last Admin: 07/28/21 08:55 Dose: 1 tab Documented by: YAIMA Omeprazole (Omeprazole 20 Mg Capsule.) 20 mg PO DAILY@0630 [facility] Last Admin: 07/28/21 05:34 Dose: 20 mg Documented by: YAIMA Pharmacy Consult (Consult Rx Perform Med Rec) 1 each MISCELLANE ONCE PRN PRN Reason: Consult order Sodium Chloride (0.9 % Sodium Chloride Flush 3 Ml Syringe) 3 ml IVFLUSH QSHIFT [facility] Last Admin: 07/28/21 19:39 Dose: 3 ml Documented by: EDUARD Tamsulosin HCl (Tamsulosin Hcl 0.4 Mg Capsule) 0.4 mg PO BEDTIME [facility] Last Admin: 07/28/21 19:37 Dose: 0.4 mg Documented by: EDUARD Vitamin D (Cholecalciferol (Vitamin D3) 25 Mcg Tablet) 25 mcg PO DAILY [facility] Last Admin: 07/28/21 08:55 Dose: 25 mcg Documented by: YAIMA Labs CBC & Chem 7: 07/28/21 10:22 07/28/21 05:27 Labs: Laboratory Results - last 24 hr 07/28/21 07/28/21 07/28/21 05:27 05:27 10:22 MCV 91.4 MCH 29.8 MCHC 32.6 RDW 14.6 Plt Count 314 MPV 9.6 Absolute Nucleated RBC 0.000 Nucleated RBC % (auto) 0.0 Anion Gap 15 Estim Creat Clear Calc 31.6 Estimated GFR 37 Random Glucose 103 Calcium 7.8 L Iron 18 L TIBC 126 L % Saturation 14 L Unsat Iron Binding 108 Blood Type B Positive Antibody Screen NEGATIVE Enhanced Crossmatch See Detail Procedures Date of Service Date of Service: 07/28/21 Progress Note: A&P Assessment and plan (1) Ulcer of sacral region, stage 4: Status: Acute Assessment and Plan: 81 year old female with sacral wound - not improving and recent admission with elevated wbc -? source - the sacral wound tissue doesnt look that bad most likely with osteo as ulcer open for a long time - had healed then recurred. also imaging very suspicious. ID with plan to do limited antibx treatment saying this is chronic osteo. best way is tissue pathology and bone specimen will be sent tomorrow after bedside sampling Time Spent With Patient Time: Total time spent is greater than 50% in coordination of care (as documented) at patient's floor/unit and/or counseling patient: Quality Stroke Does the patient have a stroke diagnosis?: No VTE Prior VTE?: No VTE Risk Level:: Medical - moderate - high VTE Device Contraindication: N/A - Device Ordered VTE Drug Contraindication: Treatment Not Tolerated
[2021-07-28 23:14] VITALS: BP 121/55; PULSE 69; RESP 16; TEMP 36.2; O2SAT 95
[2021-07-29 03:19] VITALS: BP 130/69; PULSE 77; RESP 18; TEMP 36.6; O2SAT 100
[2021-07-29] MEDS: Omeprazole 20 MG CAPSULE.DR PO ×3 (05:55→16:10)
--- NOTE | 2021-07-29 07:27 | HO.PM.IMPN ---
Subjective Subjective Date of Service: 07/29/21 Interval History: bacteremia Review of Systems denies any chest pain or shortness of breath or abdominal pain or fever chills, has minimal ulcer area pain. Physical Exam Vital Signs: Vital Signs: Last Vital Signs Temp 97.8 F 07/29/21 03:19 Pulse 77 07/29/21 03:19 Resp 18 07/29/21 03:19 BP 130/69 07/29/21 03:19 Pulse Ox 100 07/29/21 03:19 BMI result Body Mass Index 20.9 Appearance: Alert.? Oriented X3.? not in distress.? cvs: rrr, [id number] , no murmur res: air entry fair. abd: no rebound or guarding ,nt, bs present. ext pulses present , no cyanosis,Large sacral decubitus ulcer, mostly clean with good granulation except for exposed bone on the left side. neuro: axo3 , nonfocal. Objective Data Active Medications Acetaminophen (Acetaminophen 325 Mg Tablet) 650 mg PO Q6H PRN PRN Reason: Pain, Mild (Pain Scale 1-3) Last Admin: 07/28/21 19:37 Dose: 650 mg Documented by: EDUARD Amlodipine Besylate (Amlodipine Besylate 10 Mg Tablet) 10 mg PO BEDTIME [facility]; Protocol Last Admin: 07/28/21 19:37 Dose: 10 mg Documented by: EDUARD Ascorbic Acid (Ascorbic Acid 500 Mg Tablet) 1,000 mg PO DAILY [facility] Last Admin: 07/28/21 08:55 Dose: 1,000 mg Documented by: YAIMA Aspirin (Aspirin Enteric Coated 81 Mg Tablet.) 81 mg PO DAILY [facility] Last Admin: 07/28/21 08:55 Dose: 81 mg Documented by: YAIMA Calcitonin [place] (Calcitonin,[place],Synth Nasal 3.7 Ml Bottle) 1 spray NOSTRIL-B DAILY [facility] Last Admin: 07/28/21 08:56 Dose: Not Given Documented by: YAIMA Non-Admin Reason: Med Not Available Carvedilol (Carvedilol 6.25 Mg Tablet) 6.25 mg PO BID [facility]; Protocol Last Admin: 07/28/21 19:37 Dose: 6.25 mg Documented by: EDUARD Donepezil HCl (Donepezil Hcl 10 Mg Tablet) 10 mg PO DAILY [facility] Last Admin: 07/28/21 08:55 Dose: 10 mg Documented by: YAIMA Ferrous Sulfate (Ferrous Sulfate 324 Mg Tablet.) 324 mg PO DAILY [facility] Last Admin: 07/28/21 08:56 Dose: 324 mg Documented by: YAIMA Ferrous Sulfate (Ferrous Sulfate 300 Mg/5 Ml Liquid) 300 mg PO BIDWM [facility] Guaifenesin (Guaifenesin 100 Mg/5 Ml Liquid) 5 ml PO Q4H PRN PRN Reason: Cough Ceftriaxone Sodium 1 gm/ (Sodium Chloride) 50 mls @ 100 mls/hr IV Q24H [facility] Last Infusion: 07/28/21 14:08 Dose: 0 mls/hr Documented by: PARAMJIT Melatonin (Melatonin 3 Mg Tablet) 3 mg PO BEDTIME PRN PRN Reason: Insomnia Morphine Sulfate (Morphine Sulfate 4 Mg/Ml Cartridge) 1 mg IVPUSH Q4H PRN; Protocol PRN Reason: Pain, Severe (Pain Scale 7-10) Multivitamins/Vitamin C (Multivitamin Tablet) 1 tab PO DAILY [facility] Last Admin: 07/28/21 08:55 Dose: 1 tab Documented by: YAIMA Omeprazole (Omeprazole 20 Mg Capsule.) 20 mg PO BID@0630,1630 [facility] Omeprazole (Omeprazole 20 Mg Capsule.) 20 mg PO BID [facility] Pharmacy Consult (Consult Rx Perform Med Rec) 1 each MISCELLANE ONCE PRN PRN Reason: Consult order Sodium Chloride (0.9 % Sodium Chloride Flush 3 Ml Syringe) 3 ml IVFLUSH QSHIFT [facility] Last Admin: 07/28/21 19:39 Dose: 3 ml Documented by: EDUARD Tamsulosin HCl (Tamsulosin Hcl 0.4 Mg Capsule) 0.4 mg PO BEDTIME [facility] Last Admin: 07/28/21 19:37 Dose: 0.4 mg Documented by: EDUARD Vitamin D (Cholecalciferol (Vitamin D3) 25 Mcg Tablet) 25 mcg PO DAILY [facility] Last Admin: 07/28/21 08:55 Dose: 25 mcg Documented by: YAIMA Labs CBC & Chem 7: 07/29/21 08:34 07/29/21 08:34 Labs: Laboratory Results - last 24 hr 07/23/21 07/24/21 07/25/21 12:53 05:22 05:21 Hgb 8.9 L 7.9 L 8.2 L Iron TIBC % Saturation Unsat Iron Binding Blood Type Antibody Screen Enhanced Crossmatch 07/26/21 07/28/21 07/28/21 06:07 05:27 05:27 Hgb 8.3 L 7.3 L Iron 18 L TIBC 126 L % Saturation 14 L Unsat Iron Binding 108 Blood Type Antibody Screen Enhanced Crossmatch 07/28/21 07/28/21 10:22 10:22 Hgb 7.2 L Iron TIBC % Saturation Unsat Iron Binding Blood Type B Positive Antibody Screen NEGATIVE Enhanced Crossmatch See Detail Assessment and Plan (1) Bacteremia: Status: Acute (2) Ulcer of sacral region, stage 4: Status: Acute Plan 81-year-old female with a past medical history of hypertension, hyperlipidemia, CAD, peripheral vascular disease, paroxysmal AFib, CKD, anemia, dementia, recent history of UTI-finished course of antibiotics; 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 presenting with left hip and found to be septic likely of decub ulcer source, UTI? and she is failing at home. Sepsis/? Bacteremia: give prior history of VRE and Pseudomonas ?? Strep group A bacteremia, repeat culture pending ? urine culture:? Klebsiella pneumoniae ?leukocytosis trending down,no fevers) ? Id and Wound Care evaluation noted- continue current antibiotics,? discussed with ID and surgery sepsis probably secondary to bacteremia/ UTI-possible likely decubtii ulcer area.less likely ostomyelitis? continue ceftriaxone day 5.(today tofiest day wasor repat blood the culture neg @ the48 hours,will need 2 weeks antibiotics ?echo noted -seems fine picc line ?surgery evaluation noted , wound care follow up today UTI--Same Abx as above. Anemia of chronic disease--no acute component, monitor if drops further consider transufison CKD3--Creatine is witin baseline History of hypertension: Continue Norvasc and Coreg. History of peripheral vascular disease/CAD:? She does not tolerate statin, Aspirin and BB History of paroxysmal AFib: Rate controlled.? Not on anticoagulation secondary to anemia, high tendency to bleed.? Coreg for rate control Dementia- unclear etiology--Aricept decubitus? ulcer: continue wound care, nutrition following. ?encouraged for p.o. intake. turn q2hr ? Wound care? follow-up. DVT prophylaxis:? SCD boots Code status:? DNI only. Not DNR!! ? Patient : bacteremia, decubitus? ulcer. repeat blood culture, echo pending,? Patient currently on IV antibiotics. above is updated ( patient ,her , daughter) d/w with staff in detail. Quality Stroke Does the patient have a stroke diagnosis?: No VTE Prior VTE?: No VTE Risk Level:: Medical - moderate - high VTE Device Contraindication: N/A - Device Ordered VTE Drug Contraindication: Treatment Not Tolerated
[2021-07-29 07:47] VITALS: BP 125/60; PULSE 78; RESP 18; TEMP 36.5; O2SAT 97
[2021-07-29] MEDS: Multivitamin TABLET 1 TAB PO (08:06)
[2021-07-29] MEDS: Ascorbic Acid 500 MG TABLET 1000 MG PO (08:06)
[2021-07-29] MEDS: Aspirin Enteric Coated 81 MG TABLET.DR PO (08:06)
[2021-07-29] MEDS: carvediloL 6.25 MG TABLET PO ×2 (08:06→20:01)
[2021-07-29] MEDS: Donepezil HCl 10 MG TABLET PO (08:06)
[2021-07-29] MEDS: Ferrous Sulfate 324 MG TABLET.DR PO (08:06)
[2021-07-29] MEDS: Ferrous Sulfate 300 MG/5 ML LIQUID PO ×2 (08:06→16:10)
[2021-07-29] MEDS: Cholecalciferol (Vitamin D3) 25 MCG TABLET PO (08:06)
[2021-07-29] MEDS: 0.9 % Sodium Chloride Flush 3 ML SYRINGE IVFLUSH ×3 (08:06→20:02)
[2021-07-29 08:48] LABS: Hematocrit 22.7 % (37.0-47.0); Hemoglobin 7.3 g/dl (12.0-16.0); Mean Corpuscular HGB Conc 32.2 g/dl (31.0-35.0); Mean Corpuscular Hemoglobin 29.8 pg (27.0-33.0); Mean Corpuscular Volume 92.7 fL (80.0-98.0); Mean Platelet Volume 9.2 fL (9.4-12.3); Platelet Count 294 X10*3/uL (160-400); Red Blood Count 2.45 X10*6/uL (4.20-5.50); Red Cell Distribution Width 14.5 % (11.0-16.0); White Blood Count 13.5 X10*3/uL (4.8-10.8)
[2021-07-29 09:09] LABS: Potassium 4.6 mmol/L (3.3-5.1)
[2021-07-29 12:00] VITALS: BP 121/60; PULSE 73; RESP 18; TEMP 36; O2SAT 100
[2021-07-29] MEDS: Acetaminophen 325 MG TABLET 650 MG PO (12:12)
[2021-07-29] MEDS: cefTRIAXone sodium 1 GM in 0.9 % Sodium Chloride 50 ML IV (13:19)
[2021-07-29] MEDS: Morphine Sulfate 4 MG/ML CARTRIDGE 1 MG IVPUSH (15:02)
[2021-07-29 16:00] VITALS: BP 115/61; PULSE 86; RESP 18; TEMP 37; O2SAT 100
--- NOTE | 2021-07-29 16:34 | P.PNGS_ITS ---
Subjective Subjective Date of Service: 07/29/21 Interval history: doing well Physical Exam Vital Signs: Vital Signs: Last Vital Signs Temp 98.6 F 07/29/21 16:00 Pulse 86 07/29/21 16:00 Resp 18 07/29/21 16:00 BP 115/61 07/29/21 16:00 Pulse Ox 100 07/29/21 16:00 BMI result Body Mass Index 20.9 Objective Data Active Medications Acetaminophen (Acetaminophen 325 Mg Tablet) 650 mg PO Q6H PRN PRN Reason: Pain, Mild (Pain Scale 1-3) Last Admin: 07/29/21 12:12 Dose: 650 mg Documented by: WEI Amlodipine Besylate (Amlodipine Besylate 10 Mg Tablet) 10 mg PO BEDTIME [facility]; Protocol Last Admin: 07/28/21 19:37 Dose: 10 mg Documented by: EDUARD Ascorbic Acid (Ascorbic Acid 500 Mg Tablet) 1,000 mg PO DAILY [facility] Last Admin: 07/29/21 08:06 Dose: 1,000 mg Documented by: WEI Aspirin (Aspirin Enteric Coated 81 Mg Tablet.) 81 mg PO DAILY [facility] Last Admin: 07/29/21 08:06 Dose: 81 mg Documented by: WEI Calcitonin [place] (Calcitonin,[place],Synth Nasal 3.7 Ml Bottle) 1 spray NOSTRIL-B DAILY [facility] Last Admin: 07/29/21 08:13 Dose: Not Given Documented by: WEI Non-Admin Reason: Med Not Available Carvedilol (Carvedilol 6.25 Mg Tablet) 6.25 mg PO BID [facility]; Protocol Last Admin: 07/29/21 08:06 Dose: 6.25 mg Documented by: WEI Donepezil HCl (Donepezil Hcl 10 Mg Tablet) 10 mg PO DAILY [facility] Last Admin: 07/29/21 08:06 Dose: 10 mg Documented by: WEI Ferrous Sulfate (Ferrous Sulfate 324 Mg Tablet.) 324 mg PO DAILY [facility] Last Admin: 07/29/21 08:06 Dose: 324 mg Documented by: WEI Ferrous Sulfate (Ferrous Sulfate 300 Mg/5 Ml Liquid) 300 mg PO BIDWM [facility] Last Admin: 07/29/21 16:10 Dose: 300 mg Documented by: WEI Guaifenesin (Guaifenesin 100 Mg/5 Ml Liquid) 5 ml PO Q4H PRN PRN Reason: Cough Ceftriaxone Sodium 1 gm/ (Sodium Chloride) 50 mls @ 100 mls/hr IV Q24H [facility] Last Infusion: 07/29/21 13:50 Dose: 0 mls/hr Documented by: WEI Melatonin (Melatonin 3 Mg Tablet) 3 mg PO BEDTIME PRN PRN Reason: Insomnia Morphine Sulfate (Morphine Sulfate 4 Mg/Ml Cartridge) 1 mg IVPUSH Q4H PRN; Protocol PRN Reason: Pain, Severe (Pain Scale 7-10) Last Admin: 07/29/21 15:02 Dose: 1 mg Documented by: WEI Multivitamins/Vitamin C (Multivitamin Tablet) 1 tab PO DAILY [facility] Last Admin: 07/29/21 08:06 Dose: 1 tab Documented by: WEI Omeprazole (Omeprazole 20 Mg Capsule.Dr) 20 mg PO BID@0630,1630 [facility] Last Admin: 07/29/21 16:10 Dose: 20 mg Documented by: WEI Pharmacy Consult (Consult Rx Perform Med Rec) 1 each MISCELLANE ONCE PRN PRN Reason: Consult order Sodium Chloride (0.9 % Sodium Chloride Flush 3 Ml Syringe) 3 ml IVFLUSH QSHIFT [facility] Last Admin: 07/29/21 16:10 Dose: 3 ml Documented by: WEI Tamsulosin HCl (Tamsulosin Hcl 0.4 Mg Capsule) 0.4 mg PO BEDTIME [facility] Last Admin: 07/28/21 19:37 Dose: 0.4 mg Documented by: EDUARD Vitamin D (Cholecalciferol (Vitamin D3) 25 Mcg Tablet) 25 mcg PO DAILY [facility] Last Admin: 07/29/21 08:06 Dose: 25 mcg Documented by: WEI Labs CBC & Chem 7: 07/29/21 08:34 07/29/21 08:34 Labs: Laboratory Results - last 24 hr 07/29/21 08:34 MCV 92.7 MCH 29.8 MCHC 32.2 RDW 14.5 Plt Count 294 MPV 9.2 L Absolute Nucleated RBC 0.000 Nucleated RBC % (auto) 0.0 Procedures Date of Service Date of Service: 07/29/21 Abscess I/D Site: other Additional comments: sacral bone bx done with samyur specimens sent for path and microbiology she tolerated it well Progress Note: A&P Time Spent With Patient Time: Total time spent is greater than 50% in coordination of care (as documented) at patient's floor/unit and/or counseling patient: Quality Stroke Does the patient have a stroke diagnosis?: No VTE Prior VTE?: No VTE Risk Level:: Medical - moderate - high VTE Device Contraindication: N/A - Device Ordered VTE Drug Contraindication: Treatment Not Tolerated
[2021-07-29 20:00] VITALS: BP 119/71; PULSE 68; RESP 18; TEMP 37.1; O2SAT 100
[2021-07-29] MEDS: Tamsulosin HCL 0.4 MG CAPSULE PO (20:01)
[2021-07-29] MEDS: amLODIPine Besylate 10 MG TABLET PO (20:01)
[2021-07-29 23:27] VITALS: BP 147/65; PULSE 78; RESP 16; TEMP 36.6; O2SAT 94
[2021-07-30] VITALS (9 sets, daily range): BP systolic 134–173; BP diastolic 46–72; PULSE 65–81; RESP 16–19; TEMP 36.2–37.5; O2SAT 96–100
[2021-07-30] MEDS: Omeprazole 20 MG CAPSULE.DR PO ×2 (05:25→16:26)
[2021-07-30] MEDS: Multivitamin TABLET 1 TAB PO (08:36)
[2021-07-30] MEDS: Ferrous Sulfate 300 MG/5 ML LIQUID PO ×2 (08:36→16:26)
[2021-07-30] MEDS: Donepezil HCl 10 MG TABLET PO (08:36)
[2021-07-30] MEDS: Ascorbic Acid 500 MG TABLET 1000 MG PO (08:37)
[2021-07-30] MEDS: Aspirin Enteric Coated 81 MG TABLET.DR PO (08:37)
[2021-07-30] MEDS: Acetaminophen 325 MG TABLET 650 MG PO (08:37)
[2021-07-30] MEDS: carvediloL 6.25 MG TABLET PO ×2 (08:37→19:53)
[2021-07-30] MEDS: 0.9 % Sodium Chloride Flush 3 ML SYRINGE IVFLUSH ×2 (08:37→19:53)
[2021-07-30] MEDS: Ferrous Sulfate 324 MG TABLET.DR PO (08:37)
[2021-07-30] MEDS: Cholecalciferol (Vitamin D3) 25 MCG TABLET PO (08:37)
[2021-07-30 08:57] LABS: Folate 16.8 ng/mL (> or = 4.0); Vitamin B12 1318 pg/mL (200-900)
--- NOTE | 2021-07-30 09:40 | HO.MIDLINE_ITS ---
PICC Line Insertion MIDLINE INSERTION Diagnosis: BACTEREMIA Indication: [facility]DC IV ANTIBIOTICS Pertinent Labs: REVIEWED Technique: Using sterile technique including cap and mask, glove and drape, the RIGHT arm was prepped and draped in the usual sterile fashion of full barrier technique with CHG. Using ultrasound guidance, CEPHALIC vein access was ob tained IN SINGLE ATTEMPT BY THIS RN. A SINGLE LUMEN, NON-PASV, (20G x 8CM) MIDLINEwas positioned. The procedure was performed in S-272. Ultrasound was used to document vein patency and for needle entry. A formal ultrasound picture was recorded. [employer] has released the line for use and it is currently dressed with a StatLock, Tegaderm, and CHG disc. Verification has been performed for blood return and line patency. Arm Circumference: 23 CM Equipment: [employer] PWOERGLIDE PRO Catheter Type: SINGLE LUMEN, NON-PASV, (20G x 8CM) Lot #: [id number]
--- NOTE | 2021-07-30 10:59 | MHC.CLN ---
Addendum entered by Greta Fernandez, HELENA 07/30/21 11:02: LOW POTASSIUM ADDED TO DIET ORDER 07/28/21. POTASSIUM ELEVATED 07/28=5.2. Original Note: F/U PATIENT WITH STAGE 4 SACRAL WOUND. DIET=REGULAR. SUPPLEMENT ENSURE TID TO PROMOTE WOUND HEALING/IMPROVE NUTRITIONAL STATUS. SUPPLEMENT PROVIDES 1050 KCALS, 60 G PROTEIN. INTAKE AT MEALS VARIABLE, 0-75%. CONTINUE TO ENCOURAGE INTAKE AT MEALS, SUPPLEMENT, AND SNACKS ABLE.
--- NOTE | 2021-07-30 11:34 | MHC.CM.PN ---
late entry from 07/27 21 nurse director of casework services tom ring sent out agin broad area search for str for ;l-ebonie denials sec to no bed [facility] care one [facility] one [facility] care [facility], [facility] , [facility] farrah mancristel phillips, nathaly bledsoe, [facility] shannon cazares e/w referrasl also sent to [facility] , [facility] , [facility], [facility], [facility] s[facility]p l-ebonie will need rapid covid and los ,30 days Initialized on 07/27/21 14:21 - END OF NOTE
--- NOTE | 2021-07-30 15:22 | HO.PM.IMPN ---
Subjective Subjective Date of Service: 07/30/21 Interval History: bacteremia,anemia Review of Systems denies any blood in the stool or nausea or vomiting or melena denies any shortness of breath or fever Physical Exam Vital Signs: Vital Signs: Last Vital Signs Temp 97.2 F 07/30/21 13:28 Pulse 65 07/30/21 13:28 Resp 19 07/30/21 13:28 BP 134/49 L 07/30/21 13:28 Pulse Ox 96 07/30/21 11:54 BMI result Body Mass Index 20.9 ?Appearance: Alert.? Oriented X3.? not in distress.? cvs: rrr, [id number] , no murmur res: air entry fair. abd: no rebound or guarding ,nt, bs present. ext pulses present , no cyanosis,Large sacral decubitus ulcer, mostly clean with good granulation except for exposed bone on the left side. neuro: axo3 , nonfocal. Objective Data Active Medications Acetaminophen (Acetaminophen 325 Mg Tablet) 650 mg PO Q6H PRN PRN Reason: Pain, Mild (Pain Scale 1-3) Last Admin: 07/29/21 12:12 Dose: 650 mg Documented by: WEI Amlodipine Besylate (Amlodipine Besylate 10 Mg Tablet) 10 mg PO BEDTIME [facility]; Protocol Last Admin: 07/29/21 20:01 Dose: 10 mg Documented by: MYRANDA Ascorbic Acid (Ascorbic Acid 500 Mg Tablet) 1,000 mg PO DAILY [facility] Last Admin: 07/30/21 08:37 Dose: 1,000 mg Documented by: LISA Aspirin (Aspirin Enteric Coated 81 Mg Tablet.) 81 mg PO DAILY [facility] Last Admin: 07/30/21 08:37 Dose: 81 mg Documented by: LISA Calcitonin Kirk (Calcitonin,Kirk,Synth Nasal 3.7 Ml Bottle) 1 spray NOSTRIL-B DAILY [facility] Last Admin: 07/30/21 08:38 Dose: Not Given Documented by: LISA Non-Admin Reason: not available Carvedilol (Carvedilol 6.25 Mg Tablet) 6.25 mg PO BID [facility]; Protocol Last Admin: 07/30/21 08:37 Dose: 6.25 mg Documented by: LISA Donepezil HCl (Donepezil Hcl 10 Mg Tablet) 10 mg PO DAILY [facility] Last Admin: 07/30/21 08:36 Dose: 10 mg Documented by: LISA Ferrous Sulfate (Ferrous Sulfate 324 Mg Tablet.) 324 mg PO DAILY [facility] Last Admin: 07/30/21 08:37 Dose: 324 mg Documented by: LISA Ferrous Sulfate (Ferrous Sulfate 300 Mg/5 Ml Liquid) 300 mg PO BIDWM [facility] Last Admin: 07/30/21 08:36 Dose: 300 mg Documented by: LISA Guaifenesin (Guaifenesin 100 Mg/5 Ml Liquid) 5 ml PO Q4H PRN PRN Reason: Cough Ceftriaxone Sodium 1 gm/ (Sodium Chloride) 50 mls @ 100 mls/hr IV Q24H [facility] Last Infusion: 07/29/21 13:50 Dose: 0 mls/hr Documented by: WEI Melatonin (Melatonin 3 Mg Tablet) 3 mg PO BEDTIME PRN PRN Reason: Insomnia Morphine Sulfate (Morphine Sulfate 4 Mg/Ml Cartridge) 1 mg IVPUSH Q4H PRN; Protocol PRN Reason: Pain, Severe (Pain Scale 7-10) Last Admin: 07/29/21 15:02 Dose: 1 mg Documented by: WEI Multivitamins/Vitamin C (Multivitamin Tablet) 1 tab PO DAILY [facility] Last Admin: 07/30/21 08:36 Dose: 1 tab Documented by: LISA Omeprazole (Omeprazole 20 Mg Capsule.) 20 mg PO BID@0630,1630 [facility] Last Admin: 07/30/21 05:25 Dose: 20 mg Documented by: MYRANDA Pharmacy Consult (Consult Rx Perform Med Rec) 1 each MISCELLANE ONCE PRN PRN Reason: Consult order Sodium Chloride (0.9 % Sodium Chloride Flush 3 Ml Syringe) 3 ml IVFLUSH QSHIFT [facility] Last Admin: 07/30/21 08:37 Dose: 3 ml Documented by: LISA Sodium Chloride (0.9 % Sodium Chloride Flush 10 Ml Syringe) 5 ml IVFLUSH TID [facility] Tamsulosin HCl (Tamsulosin Hcl 0.4 Mg Capsule) 0.4 mg PO BEDTIME [facility] Last Admin: 07/29/21 20:01 Dose: 0.4 mg Documented by: MYRANDA Vitamin D (Cholecalciferol (Vitamin D3) 25 Mcg Tablet) 25 mcg PO DAILY [facility] Last Admin: 07/30/21 08:37 Dose: 25 mcg Documented by: LISA Labs CBC & Chem 7: 07/29/21 08:34 07/29/21 08:34 Labs: Laboratory Results - last 24 hr 07/28/21 07/28/21 05:27 10:22 Vitamin B12 1318 H Folate 16.8 Blood Type B Positive Antibody Screen NEGATIVE Enhanced Crossmatch See Detail Microbiology Microbiology Results: Microbiology 07/25/21 12:30 Blood Culture - Final Blood - Venous No growth after 5 days. 07/25/21 12:30 Blood Culture - Final Blood - Venous No growth after 5 days. 07/29/21 16:00 Gram Stain - Final Bone Routine Culture - Preliminary No growth to date. Anaerobic Culture - Preliminary No growth to date. Assessment and Plan (1) Bacteremia: Status: Acute (2) Ulcer of sacral region, stage 4: Status: Acute Plan 81-year-old female with a past medical history of hypertension, hyperlipidemia, CAD, peripheral vascular disease, paroxysmal AFib, CKD, anemia, dementia, recent history of UTI-finished course of antibiotics; 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 presenting with left hip and found to be septic likely of decub ulcer source, UTI? and she is failing at home. Sepsis/? Bacteremia: give prior history of VRE and Pseudomonas ?? Strep group A bacteremia, repeat culture pending ? urine culture:? Klebsiella pneumoniae ?leukocytosis trending down,no fevers) ? Id and Wound Care evaluation noted- continue current antibiotics,? discussed with ID and surgery sepsis probably secondary to bacteremia/ UTI-possible likely decubtii ulcer area.less likely acute ostomyelitis??-bone culture pelim neg ?? continue ceftriaxone day 3/14.will need 2 weeks antibiotics ?echo seems fine d/w ID?surgery , wound care follow up- less likely acute osteomylitis ,bone culture and bone biopsy sent, bone cultures are preliminary negative, bone biopsy still pending. midline placed for antibiotics. UTI--Same Abx as above. Anemia of chronic disease--no acute component, monitor h/h if drops further added 1 prbc ,continue to moniter h/h d/w Gi-may need outpatient workup( dr eckert). CKD3--Creatine is witin baseline History of hypertension: Continue Norvasc and Coreg. History of peripheral vascular disease/CAD:? She does not tolerate statin, Aspirin and BB History of paroxysmal AFib: Rate controlled.? Not on anticoagulation secondary to anemia, high tendency to bleed.? Coreg for rate control Dementia- unclear etiology--Aricept. decubitus? ulcer: continue wound care, nutrition following. ?encouraged for p.o. intake. turn q2hr ? Wound care? follow-up. DVT prophylaxis:? SCD boots Code status:? DNI only. Not DNR!! ? Patient : bacteremia-need iv antibiotics , anemia getting prbc , awaiting rehab placement above is updated ( patient ,her , daughter) d/w with staff in detail. Quality Stroke Does the patient have a stroke diagnosis?: No VTE Prior VTE?: No VTE Risk Level:: Medical - moderate - high VTE Device Contraindication: N/A - Device Ordered VTE Drug Contraindication: Treatment Not Tolerated
[2021-07-30] MEDS: cefTRIAXone sodium 1 GM in 0.9 % Sodium Chloride 50 ML IV (16:26)
[2021-07-30] MEDS: 0.9 % Sodium Chloride Flush 10 ML SYRINGE 5 ML IVFLUSH ×2 (16:27→19:56)
[2021-07-30] MEDS: amLODIPine Besylate 10 MG TABLET PO (19:53)
[2021-07-30] MEDS: Tamsulosin HCL 0.4 MG CAPSULE PO (19:53)
[2021-07-31 03:16] VITALS: BP 144/53; PULSE 85; RESP 16; TEMP 36.8; O2SAT 99
[2021-07-31] MEDS: Omeprazole 20 MG CAPSULE.DR PO (05:19)
[2021-07-31 05:58] LABS: COVID-19 Test Negative (Negative)
[2021-07-31 06:12] LABS: Hematocrit 25.9 % (37.0-47.0); Hemoglobin 8.6 g/dl (12.0-16.0); Mean Corpuscular HGB Conc 33.2 g/dl (31.0-35.0); Mean Corpuscular Hemoglobin 29.8 pg (27.0-33.0); Mean Corpuscular Volume 89.6 fL (80.0-98.0); Mean Platelet Volume 9.5 fL (9.4-12.3); Platelet Count 378 X10*3/uL (160-400); Red Blood Count 2.89 X10*6/uL (4.20-5.50); Red Cell Distribution Width 15.1 % (11.0-16.0); White Blood Count 11.5 X10*3/uL (4.8-10.8)
[2021-07-31 06:27] LABS: Anion Gap 13 (12-20); Blood Urea Nitrogen 63 mg/dL (9-16); Calcium 7.6 mg/dL (8.4-10.2); Carbon Dioxide 26 mmol/L (22-29); Chloride 100 mmol/L (96-108); Estimated Glomerular Filt Rate 47; Glucose Random 97 mg/dL (60-115); Potassium 4.5 mmol/L (3.3-5.1); Sodium 134 mmol/L (135-145)
[2021-07-31 07:12] VITALS: BP 151/67; PULSE 85; RESP 20; TEMP 36.8; O2SAT 98
[2021-07-31] MEDS: 0.9 % Sodium Chloride Flush 3 ML SYRINGE IVFLUSH ×2 (07:32→15:11)
[2021-07-31] MEDS: 0.9 % Sodium Chloride Flush 10 ML SYRINGE 5 ML IVFLUSH (07:32)
[2021-07-31] MEDS: Cholecalciferol (Vitamin D3) 25 MCG TABLET PO (07:33)
[2021-07-31] MEDS: Ferrous Sulfate 300 MG/5 ML LIQUID PO (07:33)
[2021-07-31] MEDS: Aspirin Enteric Coated 81 MG TABLET.DR PO (07:33)
[2021-07-31] MEDS: Ascorbic Acid 500 MG TABLET 1000 MG PO (07:34)
[2021-07-31] MEDS: Donepezil HCl 10 MG TABLET PO (07:34)
[2021-07-31] MEDS: Ferrous Sulfate 324 MG TABLET.DR PO (07:34)
[2021-07-31] MEDS: carvediloL 6.25 MG TABLET PO (07:35)
[2021-07-31] MEDS: Multivitamin TABLET 1 TAB PO (07:35)
--- NOTE | 2021-07-31 10:13 | P.DS_ITS ---
DS: Providers Provider Date of Service: 07/31/21 Date of admission: 07/23/21 15:55 Date of discharge: 07/31/21 Primary care physician: Walter Braun MD Consults: 07/23/21 15:30 Consult to Infectious Diseases Routine Consulting Provider: Elsie Solis Reason for consultation: Infected sacral ulcer with osteomylitis Has provider been notified: No 07/23/21 15:58 Consult to Infectious Diseases Routine Consulting Provider: Elsie Solis Reason for consultation: sepsis Has provider been notified: No 07/24/21 09:47 Consult to General Surgery Routine Consulting Provider: Ritchie Lofton Reason for consultation: sacralulcer /bacteremia Has provider been notified: No DS: Diagnosis Discharge Diagnosis (1) Sepsis: Status: Acute (2) Bacteremia: Status: Acute (3) Ulcer of sacral region, stage 4: Status: Acute DS: Summary Hospital Course Hospital Course: 81-year-old female with a past medical history of hypertension, hyperlipidemia, CAD, peripheral vascular disease, paroxysmal AFib, CKD3, anemia of chronic deisease, moderate dementia, recurrent history of UTI, 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 Zyvox until ; pulmonary fibrosis, ulcerative colitis, CLL. She lives at home with Uriel whom I could not reach to get a leodan direct history as patient is not able to provide good history in light her dementia.? According the ED record and from limited information from patient,? she has been complaining about left hip? pain, especially with movmemt,? and in light of prior histories of left dislocations there was concern of yet another? episode,? She recently had a wound vac? put on sacral ulcer on? 07/08 and has been serviced by visiting nurses who were also concern of her hip and wanted xray done--she has not sustained any trauma as of late.? Her Uriel has been having difficulty caring for her at home, getting her to commode with wound vac, her apetite has been poor. She was discharged from the hospital last middle of last month and at that time went to rehab. Her husban is presently resistant? to the idea of her returning to rehab.? Work in ED CXR unremarkable, Hip xray show no dislocation, CTA/ pelvis showed increased sacral ulcer size with fracture that has been previously noted. ? WBC is 40K, Lactic 3, Cr.. She is clearly septic. She has history of pseudomonas in sacral ulcer. She has received Cefepime in the Ed. initial cultures in the ER demonstrated group a strep no MRSA or VRE. Seen by ID who recommended a total 14 days of IV ceftriaxone. 2D echo done 07/26/21 failed to failed to demonstrate a clear vegetation. Seen by Wound Care; recommended DC wound VAC and switch to silver alginate dressing. Continued to be afebrile and tolerating therapies. will be discharged to SNF to complete course of IV ceftriaxone and follow up with wound clinic. Decision for wound VAC to be made by Wound Care Clinic Time Spent with Patient Time attestation: Total time spent providing and/or coordinating discharge services: Discharge coordination time: Greater than 30 minutes Quality: Safe Use of Opioids Does Pt have an Active Cancer Diagnosis on the Problem List?: No Quality: Stroke Does the patient have a stroke diagnosis?: No Physical Exam Vital Signs: Vital Signs: Last Vital Signs Temp 98.3 F 07/31/21 07:12 Pulse 85 07/31/21 07:12 Resp 20 07/31/21 07:12 BP 151/67 H 07/31/21 07:12 Pulse Ox 98 07/31/21 07:12 BMI result Body Mass Index 20.9 Const: Other: awake confused no acute distress Resp: Other: clear to auscultation bilaterally no rales rhonchi or wheezes Cardio: Other: no S4; positive S1-S2; no S3 murmurs rubs or gallops Skin: Other: sacral decubitus w ith good tissue al l alround but a sm all area of around 1.5 cm with palpa ble bone present a t base. the base g ranulation is pink but not as health y granulation no o bvious infection DS: Data Data Completed and Pending Completed studies during hospitalization [Text1]: Procedures Excision of Left Hip Muscle, Open Approach (05/24/21) Excision of Right Hip Muscle, Open Approach (05/24/21) Excision of Right Large Intestine, Via Natural or Artificial Opening Endoscopic, Diagnostic (06/04/21) Excision of Sigmoid Colon, Via Natural or Artificial Opening Endoscopic, Diagnostic (06/04/21) Excision of Stomach, Pylorus, Via Natural or Artificial Opening Endoscopic, Diagnostic (04/29/21) Insertion of Infusion Device into Superior Vena Cava, Percutaneous Approach (05/07/21) Introduction of Vasopressor into Peripheral Vein, Percutaneous Approach (05/07/21) Transfusion of Nonautologous Red Blood Cells into Peripheral Vein, Percutaneous Approach (06/04/21) Pending studies at discharge: Pending at discharge 07/29/21 16:12 Surgical Path [Surgical] [PTH] Urgent Labs on day of discharge: Laboratory Results - last 24 hr 07/28/21 07/31/21 07/31/21 10:22 05:19 05:19 WBC 11.5 H RBC 2.89 L Hgb 8.6 L Hct 25.9 L MCV 89.6 MCH 29.8 MCHC 33.2 RDW 15.1 Plt Count 378 D MPV 9.5 Absolute Nucleated RBC 0.000 Nucleated RBC % (auto) 0.0 Sodium 134 L Potassium 4.5 Chloride 100 Carbon Dioxide 26 Anion Gap 13 BUN 63 H Creatinine 1.11 Estim Creat Clear Calc 39.0 Estimated GFR 47 Random Glucose 97 Calcium 7.6 L COVID-19 (GENIE) COVID-19 Clin Com Blood Type B Positive Antibody Screen NEGATIVE Enhanced Crossmatch See Detail 07/31/21 05:20 WBC RBC Hgb Hct MCV MCH MCHC RDW Plt Count MPV Absolute Nucleated RBC Nucleated RBC % (auto) Sodium Potassium Chloride Carbon Dioxide Anion Gap BUN Creatinine Estim Creat Clear Calc Estimated GFR Random Glucose Calcium COVID-19 (GENIE) Negative COVID-19 Clin Com See Note Blood Type Antibody Screen Enhanced Crossmatch Preliminary micro results at discharge 07/29/21 16:00 Routine Culture - Preliminary Bone No growth to date. Anaerobic Culture - Preliminary No growth to date. Discharge Plan Discharge Patient Disposition: [facility] Discharge Diagnosis: Acute sepsis secondary to sacral ulcer Referrals: [facility] [Outside] - 1 Day ([facility] [address] [facility] [phone] TO BE TRANSFEREED TO [facility] FOR STR FOR MIDLINE -IV ABX AND PT /OT AND WOUND CARE DRESSING CHANGES TO BE TRANSPFERRED VIA [facility] AMBULANCE TRANSPORT) Walter Braun MD [Primary Care Provider] - 1 Week Discharge Medications: New ceftriaxone 1 gram Recon Soln 1 g IV Q24H Qty: 7 0RF ferrous sulfate 300 mg (60 mg iron)/5 mL Liquid 300 mg PO BIDWM Qty: 120 0RF omeprazole 20 mg Capsule,Delayed Release(Dr/Ec) 20 mg PO BID@0630,1630 Qty: 60 0RF Continued dress,lylgutg-pawu-mirbyxe-cmc 4 X 4 bandage 1 ea topical .once a day Qty: 50 0RF Rx Instructions: apply to open wound on the tailbone and change daily lisinopril 5 mg tablet 5 mg PO DAILY 0RF calcitonin (salmon) 200 unit/actuation spray,non-aerosol 1 spray intranasal DAILY 0RF Rx Instructions: alternating nostrils ferrous sulfate 325 mg (65 mg iron) Tablet 325 mg PO DAILY 0RF Probiotic 10 billion cell Capsule 10,000 mmu cells PO DAILY 0RF Repatha SureClick 140 mg/mL Pen Injector 140 mg SUBCUT Q2W 0RF amlodipine 10 mg tablet 10 mg PO BEDTIME 0RF Protocol: Hold for SBP< HOLD for SBP < : 90 omeprazole 20 mg Capsule,Delayed Release(Dr/Ec) 20 mg PO DAILY@0630 Qty: 30 0RF clonazepam 0.5 mg tablet 1 mg PO BEDTIME Qty: 30 0RF tamsulosin 0.4 mg Capsule 0.4 mg PO BEDTIME 0RF aspirin 81 mg tablet,delayed release (DR/EC) 81 mg PO DAILY 0RF Hold Instructions: Resume on 05/07/21. cholecalciferol (vitamin D3) 250 mcg (10,000 unit) capsule 25 mcg PO DAILY 0RF ascorbic acid (vitamin C) 1,000 mg tablet 1,000 mg PO DAILY 0RF Centrum Silver 0.4-300-250 mg-mcg-mcg tablet 1 tab PO DAILY 0RF donepezil 10 mg tablet 10 mg PO DAILY 0RF carvedilol 6.25 mg tablet 6.25 mg PO BID 0RF Discharge Orders: Discharge Order (Routine); Ordered 07/31/21 Ordered By: Jerardo Dewitt Diet: advance to usual diet Activity on Discharge: As tolerated Stand Alone Forms: Patient Portal Discharge page Activity Restrictions/Additional Instructions: silver alginate dressing to sacral wound daily. Follow with wound care as per facility Care Plan Goals: complete course of IV ceftriaxone; will require additional 7 doses at SNF Health Concerns: wound VAC as per instructions by wound care Plan of Treatment: rehab as per facility Assessment: see discharge summary
[2021-07-31 10:35] VITALS: BP 151/67; PULSE 85; O2SAT 98
[2021-07-31 10:51] VITALS: BP 145/77; PULSE 76; RESP 20; TEMP 36.9; O2SAT 100
[2021-07-31 11:44] LABS: Influenza A PCR NEGATIVE (Negative); Influenza B PCR NEGATIVE (Negative); Resp Syncy Virus RNA Qual PCR NEGATIVE (Negative); SARS COV2 PCR INHOUSE NEGATIVE (Negative)
[2021-07-31] MEDS: cefTRIAXone sodium 1 GM in 0.9 % Sodium Chloride 50 ML IV (15:10)
[2021-07-31 15:16] VITALS: BP 161/70; PULSE 84; RESP 18; TEMP 37.1; O2SAT 99
--- NOTE | 2021-07-31 15:29 | MHC.CM.PN ---
NURSE LINEN CHECKER NOTE ELECTRONIC MEIVAL RECORD REVIEWED ALONG WITH CASE DISCUSSED WITH THE HOSPITLAIST AND STAFF NURSE , INITIALLY [facility] WAS NOT GOING TO AUTHOORIZE STR , BUT WITH ADDITIONAL INFORMATION THEY APPROVED , CONFIRMED WITH GLENNA NORIEGA LIABILL AT [facility] . ALL D/C PAPERWORK AND PCR COVID SENT VIA [employer] TO HER . DISCHARGE PLAN [facility] TODAY FOR STR PT/OT/ WOUND DRESSING CHANGES AND IV ABX , TO GO BY [facility] ([facility] CONTRACT[facility] INS) AT 4PM TODAY T/C CALL TO PATIENTS THOMAS AND HE WAS VERY HAPPY AND REPORTED HE WILL COME BACK TO THE HOSPITDE TO SEE HER OFF AND HE WILL CALL AND JULES HIS DAUGHTER BREANA WELL, I ALSO MINFORMED PATIENT ANS SHE WAS ALSO GLAD, INFORMED [facility] THAT PATIENT WAS GOING TO [facility] FOR STR AND TO FOLLOW HER THERE
== END 2021-07-31 16:00 | disposition skilled nursing facility (03) | DRG 853 ==
LOC: HO.ED 13:34 → HO.EDOVER 16:12 → HO.S3 19:37
PROVIDERS: Internal Medicine; Admitting Provider Internal Medicine; Emergency Provider Emergency Medicine; PCP Family Medicine; Visit Provider Hospitalist
DX: A40.0 Sepsis due to streptococcus, group A (principal); L89.154 Pressure ulcer of sacral region, stage 4; I13.0 Hypertensive heart and chronic kidney disease with heart failure and stage 1 through stage 4 chronic kidney disease, or unspecified chronic kidney disease; N39.0 Urinary tract infection, site not specified; M80.88XA Other osteoporosis with current pathological fracture, vertebra(e), initial encounter for fracture; M86.9 Osteomyelitis, unspecified; D63.1 Anemia in chronic kidney disease; E78.5 Hyperlipidemia, unspecified; I25.10 Atherosclerotic heart disease of native coronary artery without angina pectoris; I48.0 Paroxysmal atrial fibrillation; Z87.440 Personal history of urinary (tract) infections; N18.30 Chronic kidney disease, stage 3 unspecified; I50.9 Heart failure, unspecified; I73.9 Peripheral vascular disease, unspecified; B96.1 Klebsiella pneumoniae [K. pneumoniae] as the cause of diseases classified elsewhere; Z74.01 Bed confinement status; Z20.822 Contact with and (suspected) exposure to COVID-19; Z98.1 Arthrodesis status; I25.2 Old myocardial infarction; F03.90 Unspecified dementia, unspecified severity, without behavioral disturbance, psychotic disturbance, mood disturbance, and anxiety; Z96.643 Presence of artificial hip joint, bilateral; Z88.8 Allergy status to other drugs, medicaments and biological substances; Z79.82 Long term (current) use of aspirin; Z79.899 Other long term (current) drug therapy
CPT/HCPCS: 0241U; 36410; 36415; 71045; 73502; 74176; 80048; 80076; 81001; 82607; 82746; 83540; 83605; 83690; 83735; 84132; 85014; 85018; 85025; 85027; 85610; 86850; 86900; 86901; 86920; 86921; 87040; 87071; 87073; 87086; 87088; 87147; 87186; 87205; 87635; 88307; 88311; 93306; 96361; 96365; 96375; 97162; 97530; 99285; C1758; J0692; J0696; J2020; J2270; P9016